=== PATIENT | female | born 1955 | race American Indian/Alaskan Native ===

== ENCOUNTER 2016-07-18 13:52 | Emergency (ER) | payer MEDICAID ==
[2016-07-18 14:17] VITALS: BMI 31.8
[2016-07-18 14:24] VITALS: TEMP 97.8
[2016-07-18] MEDS ORDERED: Sodium Chloride 0.9% 1,000 ML IV STA (14:43)
--- NOTE | 2016-07-18 15:10 | ED PDOC ---
Arrival/HPI - General Chief Complaint: Abdominal Pain Time Seen by Provider: 07/18/16 14:38 Historian: Patient - History of Present Illness Narrative History of Present Illness (Text): 07/18/16 15:04 61 y/o female with hx colon ca with liver mets, off chemotherapy for 5 weeks, presenting with complaints of RUQ abdominal discomfort. Patient states pain started last night. Discomfort is described as sharp and intermittent. Patient reports one episode of nausea and vomiting last night. Nonbilious, nonbloody emesis. She also notes constipation and lack of flatus, stating she has not had a BM in over 24hrs which is unusual for her. Patient denies fever, chills, urinary complaints, shortness of breath or chest pain. Time/Duration: 24 hours Past Medical History - Provider Review Nursing Documentation Reviewed: Yes - Infectious Disease Hx of Infectious Diseases: None - Tetanus Immunization Tetanus Immunization: Unknown - Cardiac Hx Cardiac Disorders: No - Pulmonary Hx Respiratory Disorders: No - HEENT Hx HEENT Disorder: No - Renal Hx Renal Disorder: No - Endocrine/Metabolic Hx Endocrine Disorders: No - Hematological/Oncological Hx Blood Transfusions: Yes Hx Blood Transfusion Reaction: No - Integumentary Hx Dermatological Disorder: No - Musculoskeletal/Rheumatological Hx Falls: No - Gastrointestinal Hx Gastrointestinal Disorders: No Other/Comment: liver/colon ca on chemo. HX BLOOD TRANSFUSION - Genitourinary/Gynecological Hx Genitourinary Disorders: Yes Other/Comment: fibroids, endometriosis - Psychiatric Hx Depression: No Hx Emotional Abuse: No Hx Physical Abuse: No Hx Substance Use: No - Surgical History Other/Comment: laparotomy for uterine fibroid resection - Anesthesia Hx Anesthesia Reactions: No Hx Malignant Hyperthermia: No - Suicidal Assessment Feels Threatened In Home Enviroment: No Family/Social History - Physician Review Nursing Documentation Reviewed: Yes Family/Social History: Unknown Family HX Smoking Status: Never Smoked Hx Alcohol Use: Yes (social) Hx Substance Use: No Hx Substance Use Treatment: No Allergies/Home Meds Allergies/Adverse Reactions: Allergies montano Allergy (Intermediate, Uncoded 01/01/16 10:41) URTICARIA Home Medications: Home Meds Medication Instructions Recorded Confirmed Ergocalciferol (Vitamin D2) 50,000 unit PO SUN 03/17/16 07/18/16 [Vitamin D2] traMADol [Ultram] 50 mg PO TID PRN 07/18/16 07/18/16 Review of Systems - Physician Review All systems were reviewed & negative as marked: Yes - Review of Systems Constitutional: Normal. absent: Fatigue, Fevers Eyes: Normal ENT: Normal Respiratory: absent: SOB, Cough Cardiovascular: absent: Chest Pain, Palpitations Gastrointestinal: Abdominal Pain, Constipation. absent: Diarrhea, Nausea Genitourinary Female: Normal. absent: Dysuria, Frequency, Hematuria Musculoskeletal: absent: Arthralgias, Back Pain, Neck Pain Skin: absent: Rash, Pruritis, Skin Lesions Neurological: absent: Headache, Dizziness, Focal Weakness Psychiatric: absent: Anxiety, Depression Physical Exam Vital Signs Reviewed: Yes Vital Signs Temp Pulse Resp BP Pulse Ox 07/18/16 17:46 88 18 121/76 99 07/18/16 15:44 96 H 18 106/73 95 07/18/16 13:52 97.8 F 109 H 18 104/7 L 95 Temperature: Afebrile Blood Pressure: Normal Pulse: Regular Respiratory Rate: Normal Appearance: Positive for: Well-Appearing Pain Distress: None Mental Status: Positive for: Alert and Oriented X 3 - Systems Exam Head: Present: Atraumatic, Normocephalic Pupils: Present: PERRL Extroacular Muscles: Present: EOMI Conjunctiva: Present: Normal Mouth: Present: Moist Mucous Membranes Neck: Present: Normal Range of Motion Respiratory/Chest: Present: Clear to Auscultation, Good Air Exchange. No: Respiratory Distress Cardiovascular: Present: Regular Rate and Rhythm, Normal S1, S2 Abdomen: Present: Normal Bowel Sounds. No: Tenderness, Distention, Peritoneal Signs, McBurney's Point Tender, Hernias Upper Extremity: Present: Normal Inspection. No: Cyanosis, Edema Lower Extremity: Present: Normal Inspection, NORMAL PULSES. No: Edema, CALF TENDERNESS Neurological: Present: GCS=15, CN II-XII Intact, Speech Normal Skin: Present: Warm, Dry. No: Rashes Psychiatric: Present: Alert, Oriented x 3, Normal Insight, Normal Concentration Medical Decision Making ED Course and Treatment: 07/18/16 15:12 61 y/o female with hx colon ca with mets to liver, omentum presenting with RUQ abdominal pain 2/2 cholelithiasis/cholecystitis vs constipation vs obstruction. - CBC - CMP - UA - amylase, lipase - coags - obstruction series - abd ultrasound - Pepcid - Zofran for nausea - reassess 07/18/16 15:[address] Pretty who is the patient's oncologist as well as primary physician. CT abd/pelvis is not recommended at this point as one was done on 07/04 which did not show acute pathology or expansion of metastatic disease. 07/18/16 18:10 Abdominal US reviewed. Cholelithiasis noted without cholecystitis or CBD obstruction. Abdominal pain is improved. There is no leukocytosis and patient is afebrile. Will discharge the patient today as she is scheduled for a necessary procedure Thursday. Patient will f/u with Dr. Pretty. She was instructed that she will eventually need to be evaluated by a surgeon for cholecystectomy. - Lab Interpretations Lab Results: 07/18/16 15:05 07/18/16 15:05 Lab Results 07/18/16 15:05: WBC 9.4 D, RBC 4.00, Hgb 12.3, Hct 35.4 L, MCV 88.5, MCH 30.8, MCHC 34.7, RDW 15.6 H, Plt Count 329, MPV 8.7, Gran % 76.9 H, Lymph % (Auto) 10.2 L, [place] % (Auto) 12.7 H, Eos % (Auto) 0.1 L, Baso % (Auto) 0.1, Gran # 7.20 H, Lymph # 1.0 L, [place] # 1.2 H, Eos # 0.0, Baso # 0.01, PT 12.1 H, INR 1.12 H, APTT 28.1, Sodium 132, Potassium 3.8, Chloride 96 L, Carbon Dioxide 25, Anion Gap 15, BUN 9, Creatinine 0.7, Est GFR ( Amer) > 60, Est GFR (Non- Af Amer) > 60, Random Glucose 142 H, Calcium 9.4, Total Bilirubin 2.4 H, AST 86 H, ALT 41, Alkaline Phosphatase 206 H, Total Protein 7.7, Albumin 3.8, Globulin 4.0, Albumin/Globulin Ratio 1.0 L, Amylase 93, Lipase 79, Urine Color Anay, Urine Appearance Clear, Urine pH 6.0, Ur Specific [place] 1.025, Urine Protein 100 H, Urine Glucose (UA) 100 H, Urine Ketones Trace H, Urine Blood Trace- intact H, Urine Nitrate Positive H, Urine Bilirubin Moderate H, Urine Urobilinogen 4.0 H, Ur Leukocyte Esterase Negative, Urine RBC 5 - 10, Urine WBC 2 - 5, Ur Epithelial Cells 6 - 8, Amorphous Sediment Small, Urine Bacteria Small - RAD Interpretation Radiology Orders: 07/18/16 14:45 ABD 2 VIEWS (FLAT/UP OR DECUB) [RAD] Stat 07/18/16 16:32 ABDOMEN COMPLETE [US] Stat - Medication Orders Current Medication Orders: Sodium Chloride (Sodium Chloride 0.9%) 1,000 mls @ 100 mls/hr IV .Q10H STA Stop: 07/19/16 00:42 Last Admin: 07/18/16 15:10 Dose: 100 MLS/HR eMAR Start Stop Document 07/18/16 15:10 HI (Rec: 07/18/16 15:10 [id number]) Intravenous Solution Start Date 07/18/16 Start Time 15:10 Discontinued Medications Famotidine (Pepcid) 20 mg IVP STAT STA Stop: 07/18/16 14:44 Last Admin: 07/18/16 15:10 Dose: 20 MG IVP Administration Document 07/18/16 15:10 HI (Rec: 07/18/16 15:10 [id number]) Charges for Administration # of IVP Administrations 1 Ondansetron HCl (Zofran Inj) 4 mg IVP STAT STA Stop: 07/18/16 14:44 Last Admin: 07/18/16 15:10 Dose: 4 MG IVP Administration Document 07/18/16 15:10 HI (Rec: 07/18/16 15:10 [id number]) Charges for Administration # of IVP Administrations 1 Disposition/Present on Arrival - Present on Arrival Any Indicators Present on Arrival: No History of DVT/PE: No History of Uncontrolled Diabetes: No Urinary Catheter: No History of Decub. Ulcer: No History Surgical Site Infection Following: None - Disposition Have Diagnosis and Disposition been Completed?: Yes Diagnosis: Colon cancer metastasized to liver, Abdominal pain, Elevated liver enzymes, Metastatic colorectal cancer Disposition: HOME/ ROUTINE Disposition Time: 18:08 Patient Plan: Discharge Condition: STABLE Discharge Instructions (ExitCare): Gallstones (ED) Additional Instructions: Please call Dr. Pretty with any questions. You may use Miralax for constipation as needed. Continue to use Toradol as needed for pain. If symptoms worsen or change return to the ED. Referrals: Mars Davis Jr., MD [Primary Care Provider] - Follow up with primary Thalia Pretty MD [Staff Provider] - Follow up with primary
[2016-07-18 15:13] LABS: ADD MANUAL DIFF? NO
[2016-07-18 15:18] LABS: BASO # 0.01 K/mm3 (0.0-2.0); BASO % 0.1 % (0.0-3.0); EOS % 0.1 % (1.5-5.0); GRAN % 76.9 % (50.0-68.0); HEMATOCRIT 35.4 % (36.0-48.0); LYMPH % 10.2 % (22.0-35.0); MEAN CELL VOLUME 88.5 fL (80.0-105.0); MEAN CORPUSCULAR HEMOGLOBIN 30.8 pg (25.0-35.0); MEAN CORPUSCULAR HGB CONC 34.7 g/dl (31.0-37.0); MEAN PLATELET VOLUME 8.7 fl (7.0-11.0); MONO # 1.2 (0.1-0.6); MONO % 12.7 % (1.0-6.0); PLATELET COUNT 329 10^3/uL (120.0-450.0); RED CELL DISTRIBUTION WIDTH 15.6 % (11.5-14.5); URINE BILIRUBIN MODERATE (NEGATIVE); URINE BLOOD TRACE-INTACT (NEGATIVE); URINE GLUCOSE (UA) 100 mg/dL (NEGATIVE); URINE KETONE TRACE mg/dL (NEGATIVE); URINE LEUKOCYTE ESTERASE NEGATIVE Leu/uL (NEGATIVE); URINE PROTEIN 100 mg/dL (<30 mg/dL); WHITE BLOOD COUNT 9.4 10^3/ul (4.5-11.0)
[2016-07-18 15:22] LABS: URINE APPEARANCE CLEAR (CLEAR); URINE COLOR AMBER (YELLOW)
[2016-07-18 15:27] LABS: ALKALINE PHOSPHATASE 206 U/L (38-133); ALT/SGPT 41 U/L (7-56); AMYLASE 93 U/L (35-125); AST/SGOT 86 U/L (15-39); BILIRUBIN,TOTAL 2.4 mg/dL (0.2-1.3); BLOOD UREA NITROGEN 9 mg/dL (7-21); CALCIUM 9.4 mg/dL (8.4-10.5); CARBON DIOXIDE 25 mmol/L (21-33); CHLORIDE 96 mmol/L (98-107); GFR AFRICAN-AMERICAN > 60; GLUCOSE,RANDOM 142 mg/dL (70-110); LIPASE 79 U/L (23-300); POTASSIUM 3.8 mmol/L (3.6-5.0); SODIUM 132 mmol/L (132-148); TOTAL PROTEIN 7.7 g/dL (5.8-8.3)
[2016-07-18 15:28] LABS: URINE BACTERIA SMALL (NEG)
[2016-07-18 15:29] LABS: URINE AMORPHOUS SEDIMENT SMALL
[2016-07-18 15:41] LABS: INR 1.12 (0.93-1.08); PARTIAL THROMBOPLASTIN TIME 28.1 Seconds (23.7-30.8)
--- NOTE | 2016-07-18 17:40 | US ---
HISTORY: abdominal discomfort COMPARISON: CT abdomen/pelvis 07/04/2016 TECHNIQUE: Sonographic evaluation of the abdomen. FINDINGS: LIVER: Measures 16.0 cm. Diffusely heterogeneous echogenicity of the liver parenchyma. Multiple masses, many ill-defined. Largest mass, 5.2 x 4.7 x 5.5 cm in the left lobe. No biliary dilatation. Smooth contour. GALLBLADDER: Cholelithiasis. No mural thickening. No pericholecystic fluid. COMMON BILE DUCT: Measures 5 mm. No stones. No dilatation. PANCREAS: Unremarkable as visualized. No mass. No ductal dilatation. RIGHT KIDNEY: Measures 12.0cm. Normal cortical echogenicity. Parapelvic cyst, 2.0 cm. 3 mm nonobstructing lower pole calculus. LEFT KIDNEY: Measures 12.4cm. Normal echogenicity. No calculus, mass, or hydronephrosis. SPLEEN: Normal in size and contour. No mass. AORTA: No aneurysmal dilatation. IVC: Unremarkable. OTHER FINDINGS: None. IMPRESSION: Findings consistent with metastatic disease the liver, as on CT examination of 07/04/2016. No evidence of biliary obstruction. Cholelithiasis without evidence of cholecystitis. Incidental 2 cm right parapelvic renal cyst and 3 mm nonobstructing right lower pole renal calculus.
[2016-07-18 18:47] VITALS: BP 131/77; PULSE 89; RESP 16; O2SAT 97
--- NOTE | 2016-07-19 13:38 | RAD ---
HISTORY: r/o obstruction COMPARISON: No prior. FINDINGS: BOWEL: Normal. No obstruction. No free air. BONES: Normal. OTHER FINDINGS: None. IMPRESSION: No active disease.
== END 2016-07-18 18:47 | disposition home or self-care (01) ==
LOC: ED 13:52
DX: C18.9 Malignant neoplasm of colon, unspecified (principal); C78.7 Secondary malignant neoplasm of liver and intrahepatic bile duct; R10.9 Unspecified abdominal pain; R74.8 Abnormal levels of other serum enzymes
CPT/HCPCS: 74020; 76700; 80053; 81001; 82150; 83690; 85025; 85610; 85730; 87086; 96374; 96375; 99284; J2405; J7040

== ENCOUNTER 2017-03-27 15:39 | Emergency (ER) | payer MEDICAID ==
[2017-03-27 15:39] VITALS: BMI 31.8
[2017-03-27 15:53] VITALS: TEMP 98.4; O2SAT 100
--- NOTE | 2017-03-27 16:33 | ED PDOC ---
Arrival/HPI - General Chief Complaint: High Blood Pressure Time Seen by Provider: 03/27/17 15:48 Historian: Patient - History of Present Illness Narrative History of Present Illness (Text): 03/27/17 16:49 61yo female with PMHx of Colon CA with mets to liver, currently on Chemo present with complaint of elevated BP. Notes that her BP was elevated a week ago , while getting her chemo. States it resolved with hydration and was told to monitor her BP. She has been checking it at home and it was 160/94 today at home. States she was unable to reach her Doctor so she came to ED. she denies any somatic complaint in ED. Denies focal weakness, headache, chest pain, SOB, visual change, nausea, vomiting, any other complaint. Past Medical History - Provider Review Nursing Documentation Reviewed: Yes - Infectious Disease Hx of Infectious Diseases: None - Tetanus Immunization Tetanus Immunization: Unknown - Cardiac Hx Cardiac Disorders: No - Pulmonary Hx Respiratory Disorders: No - Neurological Hx Neurological Disorder: No - HEENT Hx HEENT Disorder: No - Renal Hx Renal Disorder: No - Endocrine/Metabolic Hx Endocrine Disorders: No - Hematological/Oncological Hx Blood Transfusions: Yes Hx Blood Transfusion Reaction: No Hx Cancer: Yes (liver/colon CA) Hx Chemotherapy: Yes (03/20/2017) - Integumentary Hx Dermatological Disorder: No - Musculoskeletal/Rheumatological Hx Falls: No - Gastrointestinal Hx Gastrointestinal Disorders: Yes Other/Comment: liver/colon ca on chemo. HX BLOOD TRANSFUSION - Genitourinary/Gynecological Hx Genitourinary Disorders: Yes Other/Comment: fibroids, endometriosis - Psychiatric Hx Depression: No Hx Emotional Abuse: No Hx Physical Abuse: No Hx Substance Use: No - Surgical History Other/Comment: laparotomy for uterine fibroid resection. R chest port placed - Anesthesia Hx Anesthesia: Yes Hx Anesthesia Reactions: No Hx Malignant Hyperthermia: No - Suicidal Assessment Feels Threatened In Home Enviroment: No Family/Social History - Physician Review Nursing Documentation Reviewed: Yes Family/Social History: Unknown Family HX Smoking Status: Never Smoked Hx Alcohol Use: Yes (social) Hx Substance Use: No Hx Substance Use Treatment: No Allergies/Home Meds Allergies/Adverse Reactions: Allergies montano Allergy (Intermediate, Uncoded 03/27/17 15:53) URTICARIA Home Medications: Home Meds Medication Instructions Recorded Confirmed Ergocalciferol (Vitamin D2) 50,000 unit PO SUN 03/17/16 03/27/17 [Vitamin D2] Omeprazole [Omeprazole] 40 mg PO DAILY 08/06/16 03/27/17 Sucralfate [Carafate Oral Susp] 10 gm PO BID 08/13/16 03/27/17 Ursodiol [Actigall] 300 mg PO DAILY 08/27/16 03/27/17 Polyethylene Glycol 3350 [Miralax] 17 gm PO DAILY PRN 10/24/16 03/27/17 traMADol [Ultram] 50 mg PO TID PRN 10/24/16 03/27/17 Magnesium 400 mg PO DAILY 01/14/17 03/27/17 Ondansetron ODT [Zofran ODT] 4 mg PO Q8H PRN 02/26/17 03/27/17 Denosumab [Xgeva] 120 mg SC Q30D 03/19/17 03/27/17 Pyridoxine [Vitamin B6] 3 tab PO BID 03/27/17 03/27/17 Review of Systems - Physician Review All systems were reviewed & negative as marked: Yes - Review of Systems Constitutional: Normal, Other (Elevated BP) Eyes: Normal ENT: Normal Respiratory: Normal Cardiovascular: Normal Gastrointestinal: Normal Genitourinary Female: Normal Musculoskeletal: Normal Skin: Normal Neurological: Normal Endocrine: Normal Hemo/Lymphatic: Normal Psychiatric: Normal Physical Exam Vital Signs Reviewed: Yes Vital Signs Temp Pulse Resp BP Pulse Ox 03/27/17 16:54 133/83 03/27/17 16:47 99 H 16 133/83 100 03/27/17 15:50 98.4 F 110 H 15 171/93 H 100 Temperature: Afebrile Blood Pressure: Normal Pulse: Regular Respiratory Rate: Normal Appearance: Positive for: Well-Appearing, Non-Toxic, Comfortable Pain Distress: None Mental Status: Positive for: Alert and Oriented X 3 - Systems Exam Head: Present: Atraumatic, Normocephalic Pupils: Present: PERRL Extroacular Muscles: Present: EOMI Conjunctiva: Present: Normal Mouth: Present: Moist Mucous Membranes Neck: Present: Normal Range of Motion Respiratory/Chest: Present: Clear to Auscultation, Good Air Exchange. No: Respiratory Distress, Accessory Muscle Use Cardiovascular: Present: Regular Rate and Rhythm, Normal S1, S2. No: Murmurs Abdomen: Present: Normal Bowel Sounds. No: Tenderness, Distention, Peritoneal Signs Back: Present: Normal Inspection Upper Extremity: Present: Normal Inspection. No: Cyanosis, Edema Lower Extremity: Present: Normal Inspection. No: Edema Neurological: Present: GCS=15, CN II-XII Intact, Speech Normal, Motor Func Grossly Intact, Normal Sensory Function, Normal Cerebellar Funct, Norm Deep Tendon Reflexes, Gait Normal, Memory Normal, Normal 2Pt Descrimination Skin: Present: Warm, Dry, Normal Color. No: Rashes Psychiatric: Present: Alert, Oriented x 3, Normal Insight, Normal Concentration Medical Decision Making ED Course and Treatment: 03/27/17 17:18 61yo female in ED for elevated BP. She denied any somatic or neurological complaint in ED. She was comfortable and in no distress. Case was DW Dr. Pretty. he notes that pt's BP is elevated secondary to her chemo medication. Recommends low dose of ACEI for the pt and DC to f/u with him next week. Repeat BP improved in ED without medication and Lisinopril was not given. Plan was DW the pt and she was DC home with Lisinopril 5mg. she notes that she already have appointment with Dr. Fraser next week. Advised TRT ED for any new or worsening BP. - Medication Orders Current Medication Orders: Discontinued Medications Lisinopril (Zestril) 5 mg PO STAT STA Stop: 03/27/17 16:24 Last Admin: 03/27/17 16:54 Dose: Not Given Non-Admin Reason: BP Parameters Not Met Comments: not given, Jeb Muñoz aware [facility] Pulse and Blood Pressure Document 03/27/17 16:54 SE (Rec: 03/27/17 16:54 [id number]) Blood Pressure Blood Pressure (100/60-150/90 mm Hg) 133/83 Disposition/Present on Arrival - Present on Arrival Any Indicators Present on Arrival: No History of DVT/PE: No History of Uncontrolled Diabetes: No Urinary Catheter: No History of Decub. Ulcer: No History Surgical Site Infection Following: None - Disposition Have Diagnosis and Disposition been Completed?: Yes Diagnosis: Hypertension Disposition: HOME/ ROUTINE Disposition Time: 17:00 Patient Plan: Discharge Patient Problems: Current Active Problems Problem Status Onset Hypertension Acute Condition: STABLE Discharge Instructions (ExitCare): Hypertension (ED) Additional Instructions: Follow up with your doctor Return to ED for any new or worsening symptoms Prescriptions: Lisinopril [Zestril] 5 mg PO DAILY #10 tab Referrals: Thalia Pretty MD [Staff Provider] - Follow up with primary Forms: [id number] (Bulgarian)
[2017-03-27 16:47] VITALS: PULSE 99; RESP 16
[2017-03-27 17:18] VITALS: BP 140/90
--- NOTE | 2017-03-28 10:46 | CARD ---
APPROVED REPORT EKG Measurement Heart [id number] MI [id number] <Conclusion> Sinus tachycardia Otherwise normal ECG
== END 2017-03-27 17:18 | disposition home or self-care (01) ==
LOC: ED 15:39
DX: I10 Essential (primary) hypertension (principal)

== ENCOUNTER 2017-04-28 12:52 | Inpatient (IN) | payer MEDICAID ==
[2017-04-28 14:10] LABS: URINE APPEARANCE SL CLOUDY (CLEAR); URINE BILIRUBIN SMALL (NEGATIVE); URINE BLOOD TRACE-INTACT (NEGATIVE); URINE COLOR STRAW (YELLOW); URINE GLUCOSE (UA) 100 mg/dL (NEGATIVE); URINE LEUKOCYTE ESTERASE NEGATIVE Leu/uL (NEGATIVE); URINE NITRATE NEGATIVE (NEGATIVE); URINE PROTEIN 30 mg/dL (<30 mg/dL); URINE UROBILINOGEN >=8.0 E.U./dL (<1 E.U./dL)
[2017-04-28 14:20] LABS: URINE BACTERIA TRACE (NEG); URINE RBC 0 - 2 /hpf (0-2); URINE WBC 0 - 2 /hpf (0-6)
[2017-04-28 14:26] LABS: VENOUS BLOOD GAS BASE EXCESS -2.6 mmol/L (0.0-2.0); VENOUS BLOOD GAS PO2 34 mm/Hg (30-55); VENOUS BLOOD PH 7.34 (7.32-7.43)
[2017-04-28 14:28] LABS: BASO # 0.05 K/mm3 (0.0-2.0); BASO % 0.2 % (0.0-3.0); GRAN # 19.69 (1.4-6.5); GRAN % 80.9 % (50.0-68.0); LYMPH # 1.2 (1.2-3.4); LYMPH % 4.7 % (22.0-35.0); MEAN CELL VOLUME 83.2 fl (80.0-105.0); MEAN CORPUSCULAR HEMOGLOBIN 26.8 pg (25.0-35.0); MEAN CORPUSCULAR HGB CONC 32.3 g/dl (31.0-37.0); MEAN PLATELET VOLUME 8.5 fl (7.0-11.0); MONO # 3.5 (0.1-0.6); MONO % 14.2 % (1.0-6.0); PLATELET COUNT 293 10^3/uL (120.0-450.0); RED CELL DISTRIBUTION WIDTH 19.1 % (11.5-14.5); WHITE BLOOD COUNT 24.4 10^3/ul (4.5-11.0)
[2017-04-28 14:41] LABS: ALB/GLOB RATIO 0.9 (1.1-1.8); ALT/SGPT 38 U/L (7-56); AMYLASE 70 U/L (35-125); AST/SGOT 121 U/L (14-36); BLOOD UREA NITROGEN 11 mg/dL (7-21); GFR AFRICAN-AMERICAN > 60; GFR NON-AFRICAN AMERICAN > 60; LIPASE 79 U/L (23-300)
[2017-04-28 14:48] LABS: TROPONIN I < 0.01 ng/mL
[2017-04-28 14:49] LABS: INR 1.45 (0.93-1.08); PARTIAL THROMBOPLASTIN TIME 32.4 Seconds (25.1-36.5); PROTHROMBIN TIME 16.6 SECONDS (9.4-12.5)
[2017-04-28 14:56] LABS: BAND 1 % (0-2); EOSINOPHIL 1 % (0.0-3.0); LYMPHOCYTE 6 % (22.0-35.0); MONOCYTE 10 % (1.0-6.0); NEUTROPHIL 82 % (50.0-70.0); PLATELET ESTIMATE NORMAL (NORMAL)
--- NOTE | 2017-04-28 15:54 | ED PDOC ---
Arrival/HPI - General Chief Complaint: Abdominal Pain Time Seen by Provider: 04/28/17 13:21 Historian: Patient - History of Present Illness Narrative History of Present Illness (Text): 04/28/17 15:52 61yo female with history of Colon CA with metastatis referred to ED by Dr. Pretty for abnormal lab and abdominal pain. Patient notes sharp abdominal pain with associated nausea/vomiting x 1 yesterday. States abdominal pain started 3days ago and rotates from one area to the other. Notes that the pain is currently localized to her epigastric area. Saw her PMD today and her lab showed leukocytosis. States she had one loose BM earlier this morning after taking Miralax on Thursday night and then normal consistency BM afterwards. She denies fever, chills, urinary symptoms, hematemesis, melena, hematochezia, SOB, diaphoresis, chest pain, sick contact. Past Medical History - Provider Review Nursing Documentation Reviewed: Yes - Infectious Disease Hx of Infectious Diseases: None - Tetanus Immunization Tetanus Immunization: Unknown - Reproductive Menopause: Yes - Cardiac Hx Cardiac Disorders: No - Pulmonary Hx Respiratory Disorders: No - Neurological Hx Neurological Disorder: No - HEENT Hx HEENT Disorder: No - Renal Hx Renal Disorder: No - Endocrine/Metabolic Hx Endocrine Disorders: No - Hematological/Oncological Hx Cancer: Yes (liver/colon CA) Hx Chemotherapy: Yes - Integumentary Hx Dermatological Disorder: No - Musculoskeletal/Rheumatological Hx Falls: No - Gastrointestinal Other/Comment: liver/colon ca on chemo. HX BLOOD TRANSFUSION - Genitourinary/Gynecological Hx Genitourinary Disorders: Yes Other/Comment: fibroids, endometriosis - Psychiatric Hx Depression: No Hx Emotional Abuse: No Hx Physical Abuse: No Hx Substance Use: No - Surgical History Other/Comment: laparotomy for uterine fibroid resectionR chest port placedR chest port placed - Anesthesia Hx Anesthesia: Yes - Suicidal Assessment Feels Threatened In Home Enviroment: No Family/Social History - Physician Review Nursing Documentation Reviewed: Yes Family/Social History: Unknown Family HX Smoking Status: Never Smoked Hx Alcohol Use: Yes (social) Hx Substance Use: No Hx Substance Use Treatment: No Allergies/Home Meds Allergies/Adverse Reactions: Allergies montano Allergy (Intermediate, Uncoded 04/28/17 13:14) URTICARIA Home Medications: Home Meds Medication Instructions Recorded Confirmed Ergocalciferol (Vitamin D2) 50,000 unit PO SUN 11/28/16 01/09/18 [Vitamin D2] Omeprazole [Omeprazole] 40 mg PO DAILY 08/06/16 04/28/17 Sucralfate [Carafate Oral Susp] 10 gm PO BID 08/13/16 04/28/17 Ursodiol [Actigall] 300 mg PO DAILY 08/27/16 04/28/17 Polyethylene Glycol 3350 [Miralax] 17 gm PO DAILY PRN 10/24/16 04/28/17 traMADol [Ultram] 50 mg PO TID PRN 10/24/16 04/28/17 Magnesium 400 mg PO DAILY 01/14/17 04/28/17 Ondansetron ODT [Zofran ODT] 4 mg PO Q8H PRN 02/26/17 04/28/17 Denosumab [Xgeva] 120 mg SC Q30D 03/19/17 04/28/17 Pyridoxine [Vitamin B6] 3 tab PO BID 03/27/17 04/28/17 Lisinopril [Zestril] 2.5 mg PO DAILY 04/07/17 04/28/17 Review of Systems - Physician Review All systems were reviewed & negative as marked: Yes - Review of Systems Constitutional: Normal Eyes: Normal ENT: Normal Respiratory: Normal Cardiovascular: Normal Gastrointestinal: Abdominal Pain, Nausea, Vomiting. absent: Constipation, Diarrhea, Hematochezia, Hematemesis Genitourinary Female: Normal Musculoskeletal: Normal Skin: Normal Neurological: Normal Endocrine: Normal Hemo/Lymphatic: Normal Psychiatric: Normal Physical Exam Vital Signs Reviewed: Yes Vital Signs Temp Pulse Resp BP Pulse Ox 04/28/17 16:39 94 H 18 114/65 98 04/28/17 13:11 98.6 F 103 H 18 116/68 99 Temperature: Afebrile Blood Pressure: Normal Pulse: Tachycardic Respiratory Rate: Normal Appearance: Positive for: Well-Appearing, Non-Toxic, Comfortable Pain Distress: None Mental Status: Positive for: Alert and Oriented X 3 - Systems Exam Head: Present: Atraumatic, Normocephalic Pupils: Present: PERRL Extroacular Muscles: Present: EOMI Conjunctiva: Present: Normal Mouth: Present: Moist Mucous Membranes Neck: Present: Normal Range of Motion Respiratory/Chest: Present: Clear to Auscultation, Good Air Exchange. No: Respiratory Distress, Accessory Muscle Use Cardiovascular: Present: Regular Rate and Rhythm, Normal S1, S2. No: Murmurs Abdomen: Present: Tenderness (Epigastric tenderness), Normal Bowel Sounds, Other (Soft). No: Distention, Peritoneal Signs, Rebound, Guarding, McBurney's Point Tender, Rovsing's Sign Present Back: Present: Normal Inspection Upper Extremity: Present: Normal Inspection. No: Cyanosis, Edema Lower Extremity: Present: Normal Inspection. No: Edema Neurological: Present: GCS=15, CN II-XII Intact, Speech Normal Skin: Present: Warm, Dry, Normal Color. No: Rashes Psychiatric: Present: Alert, Oriented x 3, Normal Insight, Normal Concentration Medical Decision Making - Lab Interpretations Lab Results: 04/28/17 14:05 04/28/17 14:05 Lab Results 04/28/17 14:05: pO2 34, VBG pH 7.34, VBG pCO2 43.0, VBG HCO3 23.2, VBG Total CO2 24.5, VBG O2 Sat (Calc) 67.4 H, VBG Base Excess -2.6 L, VBG Potassium 4.0, Sodium 130.0 L, Chloride 97.0 L, Glucose 115 H, Lactate 2.8 H, FiO2 21.0, Venous Blood Potassium 4.0 04/28/17 14:05: Sodium 133, Chloride 95 L, Potassium 3.8, Carbon Dioxide 25, Anion Gap 17, BUN 11, Creatinine 0.6 L, Est GFR ( Amer) > 60, Est GFR ( Non-Af Amer) > 60, Random Glucose 115 H, Calcium 9.0, Total Bilirubin 2.0 H, AST 121 H D, ALT 38, Alkaline Phosphatase 248 H, Lactate Dehydrogenase 1999 H, Total Creatine Kinase 140, Troponin I < 0.01, Total Protein 8.5 H, Albumin 4.0, Globulin 4.6, Albumin/Globulin Ratio 0.9 L, Amylase 70, Lipase 79 04/28/17 14:05: PT 16.6 H, INR 1.45 H, APTT 32.4 04/28/17 14:05: WBC 24.4 H D, RBC 4.10, Hgb 11.0 L, Hct 34.1 L, MCV 83.2, MCH 26.8, MCHC 32.3, RDW 19.1 H, Plt Count 293, MPV 8.5, Gran % 80.9 H, Lymph % ( Auto) 4.7 L, [place] % (Auto) 14.2 H, Eos % (Auto) 0.0 L, Baso % (Auto) 0.2, Gran # 19.69 H, Lymph # 1.2, [place] # 3.5 H, Eos # 0.0, Baso # 0.05, Neutrophils % ( Manual) 82 H, Band Neutrophils % 1, Lymphocytes % (Manual) 6 L, Monocytes % ( Manual) 10 H, Eosinophils % (Manual) 1, Platelet Evaluation Normal 04/28/17 14:00: Urine Color Straw, Urine Appearance Sl cloudy, Urine pH 6.0, Ur Specific [place] 1.025, Urine Protein 30 H, Urine Glucose (UA) 100 H, Urine Ketones Trace H, Urine Blood Trace-intact H, Urine Nitrate Negative, Urine Bilirubin Small H, Urine Urobilinogen >=8.0, Ur Leukocyte Esterase Negative, Urine RBC 0 - 2, Urine WBC 0 - 2, Ur Epithelial Cells 6 - 8, Urine Bacteria Trace - RAD Interpretation Radiology Orders: 04/28/17 13:32 ABD & PELVIS IV CONTRAST ONLY [CT] Stat 04/28/17 16:13 CHEST PORTABLE [RAD] Stat Disposition/Present on Arrival - Present on Arrival Any Indicators Present on Arrival: No History of DVT/PE: No History of Uncontrolled Diabetes: No Urinary Catheter: No History of Decub. Ulcer: No History Surgical Site Infection Following: None - Disposition Have Diagnosis and Disposition been Completed?: Yes Diagnosis: Metastatic colorectal cancer, Leukocytosis Disposition: HOSPITALIZED Disposition Time: 17:15 Condition: FAIR Forms: [employer] (Turkmen)
--- NOTE | 2017-04-28 15:59 | CT ---
PROCEDURE: CT Abdomen and Pelvis with contrast HISTORY: abdominal pain COMPARISON: 07/04/2016 CT TECHNIQUE: Contrast dose: 100 cc of Omni 350 Radiation dose: Total exam DLP = 674 mGy-cm. This CT exam was performed using one or more of the following dose reduction techniques: Automated exposure control, adjustment of the mA and/or kV according to patient size, and/or use of iterative reconstruction technique. FINDINGS: LOWER THORAX: Unremarkable. LIVER: Increasing metastatic disease is seen throughout the liver. There are multiple confluent masses especially in the posterior right lobe. There is now extension into the caudate lobe. The small subcapsular fluid collection is seen anteriorly and laterally. GALLBLADDER AND BILE DUCTS: Small gallstone PANCREAS: Unremarkable. No gross lesion or ductal dilatation. Metallic coils are seen in the region of the pancreatic head and clarissa hepatis SPLEEN: Unremarkable. ADRENALS: Unremarkable. No mass. KIDNEYS AND URETERS: Unremarkable. No hydronephrosis. No solid mass. VASCULATURE: Unremarkable. No aortic aneurysm. BOWEL: Unremarkable. No obstruction. No gross mural thickening. APPENDIX: Normal appendix. PERITONEUM: There is an increase in size of the omental metastases. These are best seen on axial image 40 series 2 LYMPH NODES: Unremarkable. No enlarged lymph nodes. BLADDER: Unremarkable. REPRODUCTIVE: Unremarkable. BONES: No acute fracture. OTHER FINDINGS: None. IMPRESSION: Increasing metastatic disease to the liver with new subcapsular fluid collection. Increasing omental metastases.
--- NOTE | 2017-04-28 17:01 | RAD ---
HISTORY: admission COMPARISON: 01/05/2016. FINDINGS: The right IJV line terminates at the cavoatrial junction. LUNGS: The lungs are clear. PLEURA: No significant pleural effusion identified, no pneumothorax apparent. CARDIOVASCULAR: Normal. OSSEOUS STRUCTURES: No significant abnormalities. VISUALIZED UPPER ABDOMEN: Normal. OTHER FINDINGS: None. IMPRESSION: No acute findings. No significant interval change.
[2017-04-28] MEDS ORDERED: Piperacillin/Tazobact 3.375 gm 100 ML IVPB STA (17:18)
[2017-04-28 19:01] LABS: VENOUS BLOOD GAS BASE EXCESS 0.7 mmol/L (0.0-2.0); VENOUS BLOOD GAS PO2 42 mm/Hg (30-55); VENOUS BLOOD PH 7.41 (7.32-7.43)
[2017-04-28 20:57] VITALS: BMI 27.1
--- NOTE | 2017-04-28 21:53 | CARD ---
APPROVED REPORT EKG Measurement Heart [id number] CO [id number] <Conclusion> Normal sinus rhythm Normal ECG
[2017-04-28] MEDS ORDERED: Morphine 2 mg/ml ISec SC ONE (22:42)
[2017-04-29] MEDS ORDERED: Morphine 2 mg/ml ISec ONE (00:28)
[2017-04-29 06:21] LABS: HEMOGLOBIN 9.4 g/dL (12.0-16.0); MEAN CELL VOLUME 82.1 fl (80.0-105.0); MEAN CORPUSCULAR HEMOGLOBIN 26.3 pg (25.0-35.0); MEAN CORPUSCULAR HGB CONC 32.1 g/dl (31.0-37.0); MEAN PLATELET VOLUME 8.7 fl (7.0-11.0); RBC 3.57 10^6/uL (3.5-6.1); WHITE BLOOD COUNT 16.3 10^3/ul (4.5-11.0)
[2017-04-29 06:30] LABS: BLOOD UREA NITROGEN 10 mg/dL (7-21); CALCIUM 8.5 mg/dL (8.4-10.5); GFR AFRICAN-AMERICAN > 60; GFR NON-AFRICAN AMERICAN > 60
[2017-04-29] MEDS: Sodium Chloride 0.9% 1,000 ML IV SCH ×3 (06:33→23:33)
[2017-04-29] MEDS: Piperacillin/Tazobact 3.375 gm 100 ML IVPB SCH ×4 (06:41→23:33)
[2017-04-29] MEDS ORDERED: Vancomycin 1gm in NS 250ml 1 GM/250 ML BAG IVPB STA (07:25)
--- NOTE | 2017-04-29 07:32 | CP.PCM.PN ---
Subjective - Date & Time of Evaluation Date of Evaluation: 04/29/17 Time of Evaluation: 06:10 - Subjective Subjective: Patient seen at the request of her RN for temp of 101.5 She was admitted yesterday with a high white count and c/o abdominal pain.She has history of metastatic colon Ca with mets to the liver.Pt's chart reviewed.She was given one dose of zosyn in the ER. Objective - Vital Signs/Intake and Output Vital Signs (last 24 hours): Temp Pulse Resp BP Pulse Ox 101.5 F H 88 20 118/62 99 04/29/17 06:32 04/28/17 19:55 04/28/17 20:47 04/28/17 19:55 04/28/17 19:55 Intake and Output: 04/28/17 04/29/17 18:59 06:59 Intake Total 240 Balance 240 - Medications Medications: Current Medications Sodium Chloride (Sodium Chloride 0.9%) 1,000 mls @ 150 mls/hr IV .Q6H40M [facility] Last Admin: 04/29/17 06:33 Dose: 150 mls/hr Piperacillin Sod/Tazobactam Sod (Zosyn 3.375 In Ns 100ml) 100 mls @ 200 mls/hr IVPB Q6 [facility] PRN Reason: Protocol Last Admin: 04/29/17 06:41 Dose: 200 mls/hr - Labs Labs: 04/29/17 06:03 04/29/17 06:03 PT 16.6 SECONDS (9.4-12.5) H 04/28/17 14:05 INR 1.45 (0.93-1.08) H 04/28/17 14:05 APTT 32.4 Seconds (25.1-36.5) 04/28/17 14:05 - Constitutional Appears: No Acute Distress - Head Exam Head Exam: ATRAUMATIC, NORMAL INSPECTION, NORMOCEPHALIC - Eye Exam Eye Exam: Normal appearance, PERRL - ENT Exam ENT Exam: Mucous Membranes Moist - Neck Exam Neck Exam: Normal Inspection - Respiratory Exam Respiratory Exam: Clear to Ausculation Bilateral - Cardiovascular Exam Cardiovascular Exam: REGULAR RHYTHM - GI/Abdominal Exam GI & Abdominal Exam: Soft, Tenderness (more on the R side,especially RUQ,no guarding or rebound.), Normal Bowel Sounds. absent: Rebound - Extremities Exam Extremities Exam: Normal Inspection. absent: Calf Tenderness, Pedal Edema - Neurological Exam Neurological Exam: Alert, Awake, Oriented x3 - Psychiatric Exam Psychiatric exam: Normal Affect - Skin Skin Exam: Dry, Warm. absent: Rash Assessment and Plan - Assessment and Plan (Free Text) Assessment: Abdominal pain History of metastatic colon Ca Leukocytosis Plan: Labs as ordered(CBC,BMP.VBG with shock panel,blood cultures) Motrin 400 mg po 1 dose given stat .9NS 150cc/hr started Case discussed with Dr Pretty,Consults requested with Dr Solis/Dr Rowley, Dr Turk and Dr Stokes. Zosyn ordered stat then Q 6 hrs.
[2017-04-29 07:55] LABS: VENOUS BLOOD GAS BASE EXCESS 0.1 mmol/L (0.0-2.0); VENOUS BLOOD GAS PO2 250 mm/Hg (30-55); VENOUS BLOOD PH 7.45 (7.32-7.43)
[2017-04-29 10:07] LABS: ALB/GLOB RATIO 0.9 (1.1-1.8); ALBUMIN 3.2 g/dL (3.0-4.8)
[2017-04-29 10:19] LABS: BILIRUBIN,DIRECT 0.9 mg/dL (0.0-0.4)
--- NOTE | 2017-04-29 11:03 | CP.PCM.CON ---
<Babak Tripp - Last Filed: 04/29/17 11:04> History of Present Illness - History of Present Illness History of Present Illness: Surgery Consult note. Dr. Stokes 61yo F with PMHx of recently diagnosed metastatic colon cancer s/p Chemo and Radiation here for evaluation of Fever, Abdominal pain. Patient states that she was having RLQ and LLQ abdominal pain 3 days ago and went to her Oncologist, Dr. Pretty's office for follow up. By the time of her evaluation by Dr. Colon , she states that her symptoms had resolved and she denied any other complaints. Patient had blood work done at the office and was told to come into the ED for further evaluation due to leukocytosis. In the ED, she was found to have a leukocytosis of 25K. She had a Tmax of 101F overnight and surgery was consulted. Patient currently denies any subjective fevers, no chills. No Abd pain, no N/V/D. No CP/SOB. Does report mild fatigue. No changes in bowel habits , does report regular flatus and BMs. No urinary complaints. CT abd/Pelvis was performed which shows increased metastatic load in the liver and omentum. PMHx: Metastatic Ascending Colon CA s/p Chemo x8 and Radiation x2. PSHx: Uterine Fibroid removal Social Hx: Denies Tobacco, Denies ETOH, Denies illicit drugs NKDA, [place] allergy Review of Systems - Review of Systems All systems: reviewed and no additional remarkable complaints except - Constitutional Constitutional: Fatigue, Fever. absent: Chills - Cardiovascular Cardiovascular: absent: Chest Pain, Dyspnea - Gastrointestinal Gastrointestinal: Abdominal Pain. absent: Change in Bowel Habits, Change in Stool Character, Constipation, Diarrhea, Hematemesis, Hematochezia, Nausea, Vomiting - Genitourinary Genitourinary: absent: Dysuria Past Patient History - Infectious Disease Hx of Infectious Diseases: None - Tetanus Immunizations Tetanus Immunization: Unknown - Past Medical History & Family History Past Medical History?: Yes - Past Social History Smoking Status: Never Smoked - CARDIAC Hx Cardiac Disorders: Yes Hx Hypertension: Yes - PULMONARY Hx Respiratory Disorders: No - NEUROLOGICAL Hx Neurological Disorder: No - HEENT Hx HEENT Problems: No - RENAL Hx Chronic Kidney Disease: Yes Hx Kidney Stones: Yes - ENDOCRINE/METABOLIC Hx Endocrine Disorders: No - HEMATOLOGICAL/ONCOLOGICAL Hx Blood Disorders: Yes Hx Anemia: Yes (blood transfusion) Hx Cancer: Yes (colon CA) Hx Chemotherapy: Yes Hx Metastesis: Yes (liver) - INTEGUMENTARY Hx Dermatological Problems: No - MUSCULOSKELETAL/RHEUMATOLOGICAL Hx Falls: No - GASTROINTESTINAL Hx Gastrointestinal Disorders: Yes (colon ca) Other/Comment: liver/colon ca on chemo. HX BLOOD TRANSFUSION - GENITOURINARY/GYNECOLOGICAL Hx Genitourinary Disorders: Yes Other/Comment: fibroids, endometriosis - PSYCHIATRIC Hx Psychophysiologic Disorder: No Hx Depression: No Hx Emotional Abuse: No Hx Physical Abuse: No - SURGICAL HISTORY Hx Surgeries: Yes Other/Comment: laparotomy for uterine fibroid resectionR chest port placedR chest port placed - ANESTHESIA Hx Anesthesia: Yes Meds Allergies/Adverse Reactions: Allergies Allergy/AdvReac Type Severity Reaction Status Date / Time montano Allergy Intermediate URTICARIA Uncoded 04/28/17 13:14 - Medications Medications: Current Medications Sodium Chloride (Sodium Chloride 0.9%) 1,000 mls @ 150 mls/hr IV .Q6H40M [facility] Last Admin: 04/29/17 06:33 Dose: 150 mls/hr Piperacillin Sod/Tazobactam Sod (Zosyn 3.375 In Ns 100ml) 100 mls @ 200 mls/hr IVPB Q6 [facility] PRN Reason: Protocol Last Admin: 04/29/17 06:41 Dose: 200 mls/hr Physical Exam - Constitutional Appears: Non-toxic, No Acute Distress, Older Than Stated Age - Head Exam Head Exam: ATRAUMATIC, NORMAL INSPECTION, NORMOCEPHALIC - Eye Exam Eye Exam: EOMI - ENT Exam ENT Exam: Mucous Membranes Moist - Respiratory Exam Respiratory Exam: NORMAL BREATHING PATTERN. absent: Accessory Muscle Use, Respiratory Distress - Cardiovascular Exam Cardiovascular Exam: absent: JVD - GI/Abdominal Exam GI & Abdominal Exam: Soft. absent: Distended, Firm, Guarding, Mass, Rebound, Rigid, Tenderness - Extremities Exam Extremities exam: Positive for: normal inspection. Negative for: calf tenderness - Neurological Exam Neurological exam: Alert, Oriented x3 - Psychiatric Exam Psychiatric exam: Normal Affect, Normal Mood - Skin Skin Exam: Dry, Intact, Normal Color, Warm Results - Vital Signs Recent Vital Signs: Last Vital Signs Temp 100.9 F H 04/29/17 10:12 Pulse 102 H 01/10/18 10:12 Resp 20 04/29/17 10:12 BP 104/42 L 04/29/17 10:12 Pulse Ox 97 04/29/17 10:12 - Labs Result Diagrams: 04/29/17 06:03 04/29/17 06:03 Labs: Laboratory Results - last 24 hr 04/28/17 04/29/17 04/29/17 18:53 06:03 06:03 WBC 16.3 H D RBC 3.57 Hgb 9.4 L Hct 29.3 L MCV 82.1 MCH 26.3 MCHC 32.1 RDW 19.0 H Plt Count 259 MPV 8.7 pO2 42 VBG pH 7.41 VBG pCO2 40.0 VBG HCO3 25.4 VBG Total CO2 26.6 VBG O2 Sat (Calc) 78.5 H VBG Base Excess 0.7 VBG Potassium 4.0 Sodium 130.0 L 132 Chloride 98.0 101 Glucose 101 Lactate 1.5 FiO2 21.0 Potassium 3.9 Carbon Dioxide 24 Anion Gap 11 BUN 10 Creatinine 0.5 L Est GFR ( Amer) > 60 Est GFR (Non-Af Amer) > 60 Random Glucose 105 Calcium 8.5 Total Bilirubin Direct Bilirubin AST ALT Alkaline Phosphatase Total Protein Albumin Globulin Albumin/Globulin Ratio Venous Blood Potassium 4.0 04/29/17 04/29/17 07:30 07:45 WBC RBC Hgb Hct MCV MCH MCHC RDW Plt Count MPV pO2 250 H VBG pH 7.45 H VBG pCO2 34.0 L VBG HCO3 23.6 VBG Total CO2 24.6 VBG O2 Sat (Calc) 100.2 H VBG Base Excess 0.1 VBG Potassium 3.7 Sodium 130.0 L Chloride 101.0 Glucose 109 H Lactate 1.2 FiO2 21.0 Potassium Carbon Dioxide Anion Gap BUN Creatinine Est GFR ( Amer) Est GFR (Non-Af Amer) Random Glucose Calcium Total Bilirubin 1.4 H Direct Bilirubin 0.9 H AST 99 H ALT 38 Alkaline Phosphatase 208 H Total Protein 6.8 Albumin 3.2 Globulin 3.5 Albumin/Globulin Ratio 0.9 L Venous Blood Potassium 3.7 Assessment & Plan - Assessment and Plan (Free Text) Assessment: 61yo F with metastatic Ascending Colon CA, not previously operated. Here for Leukocytosis and fever - CT scan noted with worsening metastatic disease - Consider tumor fever. R/o port infection (low suspicion) Plan: - f/u blood cultures - f/u urine cultures - Patient would not like to proceed with surgery to decrease tumor burden at this time. It is warranted to monitor the patient clinically at this time as she does not exhibit any obstructive symptoms. - Continue CA treatment as per Oncology team Further recs as per Dr. Divya Tripp PGY1 surgery pager: [phone] <Michael Stokes - Last Filed: 04/30/17 21:09> Meds - Medications Medications: Current Medications Acetaminophen (Tylenol 325mg Tab) 650 mg PO Q4H PRN PRN Reason: Pain, Mild (1-3) Sodium Chloride (Sodium Chloride 0.9%) 1,000 mls @ 150 mls/hr IV .Q6H40M [facility] Last Admin: 04/30/17 17:10 Dose: 150 mls/hr Piperacillin Sod/Tazobactam Sod (Zosyn 3.375 In Ns 100ml) 100 mls @ 200 mls/hr IVPB Q6 [facility] PRN Reason: Protocol Last Admin: 04/30/17 17:11 Dose: 200 mls/hr Pantoprazole Sodium (Protonix Ec Tab) 40 mg PO 0600 [facility] Last Admin: 04/30/17 06:17 Dose: 40 mg Sucralfate (Carafate Oral Susp) 1 gm PO 0600,1600 [facility] Last Admin: 04/30/17 17:10 Dose: 1 gm Tramadol HCl (Ultram) 50 mg PO Q8 PRN PRN Reason: Pain, moderate (4-7) Last Admin: 04/30/17 02:13 Dose: 50 mg Ursodiol (Actigall) 300 mg PO DAILY [facility] Last Admin: 04/30/17 09:19 Dose: 300 mg Results - Vital Signs Recent Vital Signs: Last Vital Signs Temp 98 F 04/30/17 16:00 Pulse 91 H 04/30/17 16:00 Resp 18 04/30/17 16:00 BP 120/80 04/30/17 16:00 Pulse Ox 98 04/30/17 16:00 - Labs Result Diagrams: 04/30/17 06:30 04/30/17 06:30 Labs: Laboratory Results - last 24 hr 04/30/17 04/30/17 06:30 06:30 WBC 12.1 H D RBC 3.16 L Hgb 8.3 L Hct 26.1 L MCV 82.6 MCH 26.3 MCHC 31.8 RDW 19.3 H Plt Count 222 MPV 8.7 Gran % 76.6 H Lymph % (Auto) 9.9 L [place] % (Auto) 12.7 H Eos % (Auto) 0.4 L Baso % (Auto) 0.4 Gran # 9.26 H Lymph # 1.2 [place] # 1.5 H Eos # 0.1 Baso # 0.05 Sodium 134 Potassium 4.0 Chloride 106 Carbon Dioxide 22 Anion Gap 11 BUN 8 Creatinine 0.5 L Est GFR ( Amer) > 60 Est GFR (Non-Af Amer) > 60 Random Glucose 87 Calcium 7.9 L Total Bilirubin 0.8 AST 76 H D ALT 41 Alkaline Phosphatase 225 H Total Protein 6.2 Albumin 2.7 L Globulin 3.5 Albumin/Globulin Ratio 0.8 L Assessment & Plan - Assessment and Plan (Free Text) Plan: Patient was seen, evaluated and examined by me. I agree with the assessment and plan as per the resident's note.
--- NOTE | 2017-04-29 13:21 | CP.PCM.CON ---
<EstelaDelon sylvester - Last Filed: 04/29/17 13:16> History of Present Illness - History of Present Illness History of Present Illness: Infectious disease consultation. Attending: Dr. Rowley This is a 61 yo female with past medical hx of colon cancer, with recently diagnosed mets to liver, HTN, GERD, presenting to [place] with chief complaint of left hip and abdominal pain. Patient was feeling fatigued over the weekend, also began experiencing left hip pain that ultimately spread to her lower abdomen, both left and right quadrants. Pain came on suddenly, it was constant and throbbing. Pain has resolved today. Pt went to see her oncologist Dr. Pretty yesterday (04/28). Dr. Pretty did a CBC which showed a marked leukocytosis and she was told to come to ER. She did have a fever of 101.5 overnight. She is currently afebrile. She reports 1 episode of non bloody non bilious vomiting over the weekend. She denies sick contacts and recent travel. She denies sick contacts. She reports 2-3 lb wt loss over the past week. PMH: Colon cancer with mets to liver, currently on chemo PSH: Port placement Allergies: NKDA FH: Denies Home meds: includes vitamin D, B6, omeprazole, lisinopril Social hx: Denies smoking hx. Social drinker. Denies drug use. Not currently working. Lives alone. Review of Systems - Review of Systems All systems: reviewed and no additional remarkable complaints except Review of Systems: negative except per HPI Past Patient History - Infectious Disease Hx of Infectious Diseases: None - Tetanus Immunizations Tetanus Immunization: Unknown - Past Medical History & Family History Past Medical History?: Yes Past Family History: Reviewed and not pertinent - Past Social History Smoking Status: Never Smoked Chewing Tobacco Use: No Cigar Use: No Alcohol: Social Drugs: Denies Home Situation {Lives}: Alone Domestic Violence: Negative - CARDIAC Hx Cardiac Disorders: Yes Hx Hypertension: Yes - PULMONARY Hx Respiratory Disorders: No - NEUROLOGICAL Hx Neurological Disorder: No - HEENT Hx HEENT Problems: No - RENAL Hx Chronic Kidney Disease: Yes Hx Kidney Stones: Yes - ENDOCRINE/METABOLIC Hx Endocrine Disorders: No - HEMATOLOGICAL/ONCOLOGICAL Hx Blood Disorders: Yes Hx Anemia: Yes (blood transfusion) Hx Cancer: Yes (colon CA) Hx Chemotherapy: Yes Hx Metastesis: Yes (liver) - INTEGUMENTARY Hx Dermatological Problems: No - MUSCULOSKELETAL/RHEUMATOLOGICAL Hx Falls: No - GASTROINTESTINAL Hx Gastrointestinal Disorders: Yes (colon ca) Other/Comment: liver/colon ca on chemo. HX BLOOD TRANSFUSION - GENITOURINARY/GYNECOLOGICAL Hx Genitourinary Disorders: Yes Other/Comment: fibroids, endometriosis - PSYCHIATRIC Hx Psychophysiologic Disorder: No Hx Depression: No Hx Emotional Abuse: No Hx Physical Abuse: No - SURGICAL HISTORY Hx Surgeries: Yes Other/Comment: laparotomy for uterine fibroid resectionR chest port placedR chest port placed - ANESTHESIA Hx Anesthesia: Yes Meds Allergies/Adverse Reactions: Allergies Allergy/AdvReac Type Severity Reaction Status Date / Time montano Allergy Intermediate URTICARIA Uncoded 04/28/17 13:14 - Medications Medications: Current Medications Sodium Chloride (Sodium Chloride 0.9%) 1,000 mls @ 150 mls/hr IV .Q6H40M [facility] Last Admin: 04/29/17 06:33 Dose: 150 mls/hr Piperacillin Sod/Tazobactam Sod (Zosyn 3.375 In Ns 100ml) 100 mls @ 200 mls/hr IVPB Q6 [facility] PRN Reason: Protocol Last Admin: 04/29/17 11:08 Dose: 200 mls/hr Physical Exam - Constitutional Appears: No Acute Distress - Head Exam Head Exam: ATRAUMATIC, NORMAL INSPECTION, NORMOCEPHALIC - Eye Exam Eye Exam: EOMI - ENT Exam ENT Exam: Mucous Membranes Moist - Neck Exam Neck exam: Positive for: Full Rom, Normal Inspection - Respiratory Exam Respiratory Exam: NORMAL BREATHING PATTERN. absent: Respiratory Distress - Cardiovascular Exam Cardiovascular Exam: +S1, +S2 Additional comments: port without erythema or signs of infection - GI/Abdominal Exam GI & Abdominal Exam: Normal Bowel Sounds, Soft. absent: Tenderness - Extremities Exam Extremities exam: Positive for: full ROM, normal inspection - Back Exam Back exam: NORMAL INSPECTION - Neurological Exam Neurological exam: Alert, Oriented x3 - Psychiatric Exam Psychiatric exam: Normal Affect, Normal Mood - Skin Skin Exam: Dry, Intact, Normal Color, Warm Results - Vital Signs Recent Vital Signs: Last Vital Signs Temp 100.9 F H 04/29/17 10:12 Pulse 102 H 04/29/17 10:12 Resp 20 04/29/17 10:12 BP 104/42 L 04/29/17 10:12 Pulse Ox 97 04/29/17 10:12 - Labs Result Diagrams: 04/29/17 06:03 04/29/17 06:03 Labs: Laboratory Results - last 24 hr 04/28/17 04/28/17 04/29/17 18:53 18:53 06:03 WBC 16.3 H D RBC 3.57 Hgb 9.4 L Hct 29.3 L MCV 82.1 MCH 26.3 MCHC 32.1 RDW 19.0 H Plt Count 259 MPV 8.7 pO2 42 VBG pH 7.41 VBG pCO2 40.0 VBG HCO3 25.4 VBG Total CO2 26.6 VBG O2 Sat (Calc) 78.5 H VBG Base Excess 0.7 VBG Potassium 4.0 Sodium 130.0 L Chloride 98.0 Glucose 101 Lactate 1.5 FiO2 21.0 Potassium Carbon Dioxide Anion Gap BUN Creatinine Est GFR ( Amer) Est GFR (Non-Af Amer) Random Glucose Calcium Total Bilirubin Direct Bilirubin AST ALT Alkaline Phosphatase Total Protein Albumin Globulin Albumin/Globulin Ratio Procalcitonin 0.67 H Venous Blood Potassium 4.0 Influenza Typ A,B (EIA) 04/29/17 04/29/17 04/29/17 06:03 07:30 07:45 WBC RBC Hgb Hct MCV MCH MCHC RDW Plt Count MPV pO2 250 H VBG pH 7.45 H VBG pCO2 34.0 L VBG HCO3 23.6 VBG Total CO2 24.6 VBG O2 Sat (Calc) 100.2 H VBG Base Excess 0.1 VBG Potassium 3.7 Sodium 132 130.0 L Chloride 101 101.0 Glucose 109 H Lactate 1.2 FiO2 21.0 Potassium 3.9 Carbon Dioxide 24 Anion Gap 11 BUN 10 Creatinine 0.5 L Est GFR ( Amer) > 60 Est GFR (Non-Af Amer) > 60 Random Glucose 105 Calcium 8.5 Total Bilirubin 1.4 H Direct Bilirubin 0.9 H AST 99 H ALT 38 Alkaline Phosphatase 208 H Total Protein 6.8 Albumin 3.2 Globulin 3.5 Albumin/Globulin Ratio 0.9 L Procalcitonin Venous Blood Potassium 3.7 Influenza Typ A,B (EIA) 04/29/17 12:10 WBC RBC Hgb Hct MCV MCH MCHC RDW Plt Count MPV pO2 VBG pH VBG pCO2 VBG HCO3 VBG Total CO2 VBG O2 Sat (Calc) VBG Base Excess VBG Potassium Sodium Chloride Glucose Lactate FiO2 Potassium Carbon Dioxide Anion Gap BUN Creatinine Est GFR ( Amer) Est GFR (Non-Af Amer) Random Glucose Calcium Total Bilirubin Direct Bilirubin AST ALT Alkaline Phosphatase Total Protein Albumin Globulin Albumin/Globulin Ratio Procalcitonin Venous Blood Potassium Influenza Typ A,B (EIA) Negative for flu a/b Assessment & Plan - Assessment and Plan (Free Text) Assessment: This is a 61 yo female with past medical hx of colon cancer with mets to liver, presenting with fever, leukocytosis, abdominal pain 1. Fever and leukocytosis -abd/pelvis ct shows mets to liver and omental mets -cxr shows no active disease -blood culture pending -urine culture pending -white count decreased to 16.3 from 24.4 -suspect fever secondary to malignancy, as mets to liver is known etiology of fever -however, must rule out port infection -start broad spectrum abx -we will start zosyn 3.375 g IV q6 hrs -we will check flu -we will check procal -monitor clinically discussed with Dr. Rowley <Dilan Rowley - Last Filed: 04/29/17 16:51> Meds - Medications Medications: Current Medications Sodium Chloride (Sodium Chloride 0.9%) 1,000 mls @ 150 mls/hr IV .Q6H40M [facility] Last Admin: 04/29/17 13:30 Dose: 150 mls/hr Piperacillin Sod/Tazobactam Sod (Zosyn 3.375 In Ns 100ml) 100 mls @ 200 mls/hr IVPB Q6 [facility] PRN Reason: Protocol Last Admin: 04/29/17 11:08 Dose: 200 mls/hr Results - Vital Signs Recent Vital Signs: Last Vital Signs Temp 100.9 F H 04/29/17 10:12 Pulse 102 H 04/29/17 10:12 Resp 20 04/29/17 10:12 BP 104/42 L 04/29/17 10:12 Pulse Ox 97 04/29/17 10:12 - Labs Result Diagrams: 04/29/17 06:03 04/29/17 06:03 Labs: Laboratory Results - last 24 hr 04/28/17 04/28/17 04/29/17 18:53 18:53 06:03 WBC 16.3 H D RBC 3.57 Hgb 9.4 L Hct 29.3 L MCV 82.1 MCH 26.3 MCHC 32.1 RDW 19.0 H Plt Count 259 MPV 8.7 pO2 42 VBG pH 7.41 VBG pCO2 40.0 VBG HCO3 25.4 VBG Total CO2 26.6 VBG O2 Sat (Calc) 78.5 H VBG Base Excess 0.7 VBG Potassium 4.0 Sodium 130.0 L Chloride 98.0 Glucose 101 Lactate 1.5 FiO2 21.0 Potassium Carbon Dioxide Anion Gap BUN Creatinine Est GFR ( Amer) Est GFR (Non-Af Amer) Random Glucose Calcium Total Bilirubin Direct Bilirubin AST ALT Alkaline Phosphatase Total Protein Albumin Globulin Albumin/Globulin Ratio Procalcitonin 0.67 H Venous Blood Potassium 4.0 Influenza Typ A,B (EIA) 04/29/17 04/29/17 04/29/17 06:03 07:30 07:45 WBC RBC Hgb Hct MCV MCH MCHC RDW Plt Count MPV pO2 250 H VBG pH 7.45 H VBG pCO2 34.0 L VBG HCO3 23.6 VBG Total CO2 24.6 VBG O2 Sat (Calc) 100.2 H VBG Base Excess 0.1 VBG Potassium 3.7 Sodium 132 130.0 L Chloride 101 101.0 Glucose 109 H Lactate 1.2 FiO2 21.0 Potassium 3.9 Carbon Dioxide 24 Anion Gap 11 BUN 10 Creatinine 0.5 L Est GFR ( Amer) > 60 Est GFR (Non-Af Amer) > 60 Random Glucose 105 Calcium 8.5 Total Bilirubin 1.4 H Direct Bilirubin 0.9 H AST 99 H ALT 38 Alkaline Phosphatase 208 H Total Protein 6.8 Albumin 3.2 Globulin 3.5 Albumin/Globulin Ratio 0.9 L Procalcitonin Venous Blood Potassium 3.7 Influenza Typ A,B (EIA) 04/29/17 12:10 WBC RBC Hgb Hct MCV MCH MCHC RDW Plt Count MPV pO2 VBG pH VBG pCO2 VBG HCO3 VBG Total CO2 VBG O2 Sat (Calc) VBG Base Excess VBG Potassium Sodium Chloride Glucose Lactate FiO2 Potassium Carbon Dioxide Anion Gap BUN Creatinine Est GFR ( Amer) Est GFR (Non-Af Amer) Random Glucose Calcium Total Bilirubin Direct Bilirubin AST ALT Alkaline Phosphatase Total Protein Albumin Globulin Albumin/Globulin Ratio Procalcitonin Venous Blood Potassium Influenza Typ A,B (EIA) Negative for flu a/b Assessment & Plan - Assessment and Plan (Free Text) Assessment: Infectious Diseases Attending Physician Attestation Patient seen and examined, discussed with medical director/head team physician. I have reviewed the patient's HPI, ROS, past medical, family, personal and social histories, physical exam, imaging and labs. I agree with the above findings, assessment and plan. In addition, will follow up blood, urine cx for SIRS R/O sepsis in this patient with metastatic colon cancer. Overall prognosis is poor. Gave a dose of IV Vanco and will continue Zosyn.
--- NOTE | 2017-04-29 16:53 | CP.PCM.CON ---
<Cathi Meade - Last Filed: 04/29/17 16:56> History of Present Illness - History of Present Illness History of Present Illness: Seen and examined at the bedside earlier today, chart review. Request for GI consult is for colon cancer with metastasis to the liver. HPI: This is a 61-year-old female with a history of colon cancer with metastasis to the liver sent to the emergency room for further evaluation by her oncologist Dr. Pretty for abnormal labs and complaints of abdominal pain. The patient was found to have leukocytosis and complained of abdominal pain that started on Thursday. The patient reported that Thursday night she started with left lower hip pain that radiated across to the right side and up to the right upper quadrant. This morning she reports that the pain has resolved does not even complain of a soreness. She did have some nausea and vomiting 1 yesterday. Prior this she recalls that she was in her usual state of health on Thursday, recalls eating a column or a solid and legs T Abiodun and next day she reported having the pain she denies any diarrhea only after she had taken MiraLAX on Thursday. After the second on the second bowel movement the stool was formed. She denies any melena or bright red blood per rectum. She does have a history of gallstones she is on ursodiol. Her last chemotherapy treatment was 2 weeks ago. She denies any symptoms of acid reflux, no fever or chills. On admission she had a CT scan of abdomen and pelvis with IV contrast only and noted to have increasing metastatic disease throughout the liver with a new subscapular fluid collection. As well as increasing omental metastasis, she does have gallstones present. She reports that she saw a specialist for her liver and received injectable treatments 2 she cannot recall the name of the treatment. In review of her chart she did have a PET scan on 06/09/2016 and this reported worsening of metastasis in the liver especially in the left lobe since her previous study as well as new FDG avid soft tissue nodules in the lymph nodes, lesions in the posterior left iliac bone which is consistent/ suggestive of a new metastasis. She was able to tolerate breakfast this morning no reports of diarrhea, or overt GI bleed. Denies any loss of appetite. Or recent weight loss. Past medical history: Endometriosis, colon cancer with metastasis currently on chemotherapy, gallstones Surgical history: Laparotomy for uterine fibroids, Port-A-Cath, last colonoscopy was 12/2015 which showed the colon mass, internal hemorrhoids and diverticulosis Allergies: Knowles Family history: Denies Social history: Socially drinks wine on occasion, smoking denied, recreational drug denies Medications: Reviewed as per MAR ROS: Systems reviewed with positive findings see HPI Past Patient History - Infectious Disease Hx of Infectious Diseases: None - Tetanus Immunizations Tetanus Immunization: Unknown - Past Medical History & Family History Past Medical History?: Yes Past Family History: Reviewed and not pertinent - Past Social History Smoking Status: Never Smoked Chewing Tobacco Use: No Cigar Use: No Alcohol: Social Drugs: Denies Home Situation {Lives}: Alone Domestic Violence: Negative - CARDIAC Hx Cardiac Disorders: Yes Hx Hypertension: Yes - PULMONARY Hx Respiratory Disorders: No - NEUROLOGICAL Hx Neurological Disorder: No - HEENT Hx HEENT Problems: No - RENAL Hx Chronic Kidney Disease: Yes Hx Kidney Stones: Yes - ENDOCRINE/METABOLIC Hx Endocrine Disorders: No - HEMATOLOGICAL/ONCOLOGICAL Hx Blood Disorders: Yes Hx Anemia: Yes (blood transfusion) Hx Cancer: Yes (colon CA) Hx Chemotherapy: Yes Hx Metastesis: Yes (liver) - INTEGUMENTARY Hx Dermatological Problems: No - MUSCULOSKELETAL/RHEUMATOLOGICAL Hx Falls: No - GASTROINTESTINAL Hx Gastrointestinal Disorders: Yes (colon ca) Other/Comment: liver/colon ca on chemo. HX BLOOD TRANSFUSION - GENITOURINARY/GYNECOLOGICAL Hx Genitourinary Disorders: Yes Other/Comment: fibroids, endometriosis - PSYCHIATRIC Hx Psychophysiologic Disorder: No Hx Depression: No Hx Emotional Abuse: No Hx Physical Abuse: No - SURGICAL HISTORY Hx Surgeries: Yes Other/Comment: laparotomy for uterine fibroid resectionR chest port placedR chest port placed - ANESTHESIA Hx Anesthesia: Yes Meds Allergies/Adverse Reactions: Allergies Allergy/AdvReac Type Severity Reaction Status Date / Time dusty Allergy Intermediate URTICARIA Uncoded 04/28/17 13:14 - Medications Medications: Current Medications Sodium Chloride (Sodium Chloride 0.9%) 1,000 mls @ 150 mls/hr IV .Q6H40M [facility] Last Admin: 04/29/17 13:30 Dose: 150 mls/hr Piperacillin Sod/Tazobactam Sod (Zosyn 3.375 In Ns 100ml) 100 mls @ 200 mls/hr IVPB Q6 [facility] PRN Reason: Protocol Last Admin: 04/29/17 11:08 Dose: 200 mls/hr Physical Exam - Constitutional Appears: No Acute Distress - Eye Exam Eye Exam: Normal appearance. absent: Scleral icterus - ENT Exam ENT Exam: Mucous Membranes Moist - Neck Exam Neck exam: Positive for: Normal Inspection - Respiratory Exam Respiratory Exam: Clear to Auscultation Bilateral, NORMAL BREATHING PATTERN. absent: Respiratory Distress - Cardiovascular Exam Cardiovascular Exam: +S1, +S2 - GI/Abdominal Exam GI & Abdominal Exam: Normal Bowel Sounds, Soft. absent: Distended, Guarding, Organomegaly, Rebound, Tenderness - Extremities Exam Extremities exam: Positive for: pedal pulses present. Negative for: calf tenderness, pedal edema - Neurological Exam Neurological exam: Alert, Oriented x3 - Skin Skin Exam: Dry, Warm Results - Vital Signs Recent Vital Signs: Last Vital Signs Temp 100.9 F H 04/29/17 10:12 Pulse 102 H 04/29/17 10:12 Resp 20 04/29/17 10:12 BP 104/42 L 04/29/17 10:12 Pulse Ox 97 04/29/17 10:12 - Labs Result Diagrams: 04/29/17 06:03 04/29/17 06:03 Labs: Laboratory Results - last 24 hr 04/28/17 04/28/17 04/29/17 18:53 18:53 06:03 WBC 16.3 H D RBC 3.57 Hgb 9.4 L Hct 29.3 L MCV 82.1 MCH 26.3 MCHC 32.1 RDW 19.0 H Plt Count 259 MPV 8.7 pO2 42 VBG pH 7.41 VBG pCO2 40.0 VBG HCO3 25.4 VBG Total CO2 26.6 VBG O2 Sat (Calc) 78.5 H VBG Base Excess 0.7 VBG Potassium 4.0 Sodium 130.0 L Chloride 98.0 Glucose 101 Lactate 1.5 FiO2 21.0 Potassium Carbon Dioxide Anion Gap BUN Creatinine Est GFR ( Amer) Est GFR (Non-Af Amer) Random Glucose Calcium Total Bilirubin Direct Bilirubin AST ALT Alkaline Phosphatase Total Protein Albumin Globulin Albumin/Globulin Ratio Procalcitonin 0.67 H Venous Blood Potassium 4.0 Influenza Typ A,B (EIA) 04/29/17 04/29/17 04/29/17 06:03 07:30 07:45 WBC RBC Hgb Hct MCV MCH MCHC RDW Plt Count MPV pO2 250 H VBG pH 7.45 H VBG pCO2 34.0 L VBG HCO3 23.6 VBG Total CO2 24.6 VBG O2 Sat (Calc) 100.2 H VBG Base Excess 0.1 VBG Potassium 3.7 Sodium 132 130.0 L Chloride 101 101.0 Glucose 109 H Lactate 1.2 FiO2 21.0 Potassium 3.9 Carbon Dioxide 24 Anion Gap 11 BUN 10 Creatinine 0.5 L Est GFR ( Amer) > 60 Est GFR (Non-Af Amer) > 60 Random Glucose 105 Calcium 8.5 Total Bilirubin 1.4 H Direct Bilirubin 0.9 H AST 99 H ALT 38 Alkaline Phosphatase 208 H Total Protein 6.8 Albumin 3.2 Globulin 3.5 Albumin/Globulin Ratio 0.9 L Procalcitonin Venous Blood Potassium 3.7 Influenza Typ A,B (EIA) 04/29/17 12:10 WBC RBC Hgb Hct MCV MCH MCHC RDW Plt Count MPV pO2 VBG pH VBG pCO2 VBG HCO3 VBG Total CO2 VBG O2 Sat (Calc) VBG Base Excess VBG Potassium Sodium Chloride Glucose Lactate FiO2 Potassium Carbon Dioxide Anion Gap BUN Creatinine Est GFR ( Amer) Est GFR (Non-Af Amer) Random Glucose Calcium Total Bilirubin Direct Bilirubin AST ALT Alkaline Phosphatase Total Protein Albumin Globulin Albumin/Globulin Ratio Procalcitonin Venous Blood Potassium Influenza Typ A,B (EIA) Negative for flu a/b Assessment & Plan - Assessment and Plan (Free Text) Assessment: Assessment: Resolved abdominal pain, differentials to consider biliary colic, ?mild gastroenteritis,metastatic cancer Cholelithiasis, last abdominal ultrasound was 06/2016 did show gallstones no inflammation and the CBD measured 5 mm Colon cancer with metastasis liver and new metastases to bone and peritoneum, presently on chemotherapy Leukocytosis/H/o Fever, r/o port infection Anemia Elevated LFTs may be secondary to liver metastasis Plan: Diet as tolerated Trend LFTs Continue PPI on IV antibiotic fu urine/blood culture Consider abdominal ultrasound Oncology, ID follow-up Thank you for this consult and for allowing us to participate in your patient's care, further recommendations based upon clinical course. Seen and discussed with Dr. Turk. <Joi Turk V - Last Filed: 04/30/17 00:27> Meds - Medications Medications: Current Medications Acetaminophen (Tylenol 325mg Tab) 650 mg PO Q4H PRN PRN Reason: Pain, Mild (1-3) Sodium Chloride (Sodium Chloride 0.9%) 1,000 mls @ 150 mls/hr IV .Q6H40M [facility] Last Admin: 04/29/17 23:33 Dose: 150 mls/hr Piperacillin Sod/Tazobactam Sod (Zosyn 3.375 In Ns 100ml) 100 mls @ 200 mls/hr IVPB Q6 [facility] PRN Reason: Protocol Last Admin: 04/29/17 23:33 Dose: 200 mls/hr Pantoprazole Sodium (Protonix Ec Tab) 40 mg PO 0600 [facility] Sucralfate (Carafate Oral Susp) 1 gm PO 0600,1600 [facility] Tramadol HCl (Ultram) 50 mg PO Q8 PRN PRN Reason: Pain, moderate (4-7) Ursodiol (Actigall) 300 mg PO DAILY [facility] Results - Vital Signs Recent Vital Signs: Last Vital Signs Temp 97.8 F 04/29/17 16:00 Pulse 85 04/29/17 16:00 Resp 20 04/29/17 16:00 BP 115/68 04/29/17 16:00 Pulse Ox 95 04/29/17 16:00 - Labs Result Diagrams: 04/29/17 06:03 04/29/17 06:03 Labs: Laboratory Results - last 24 hr 04/28/17 04/29/17 04/29/17 18:53 06:03 06:03 WBC 16.3 H D RBC 3.57 Hgb 9.4 L Hct 29.3 L MCV 82.1 MCH 26.3 MCHC 32.1 RDW 19.0 H Plt Count 259 MPV 8.7 pO2 VBG pH VBG pCO2 VBG HCO3 VBG Total CO2 VBG O2 Sat (Calc) VBG Base Excess VBG Potassium Glucose Lactate FiO2 Sodium 132 Potassium 3.9 Chloride 101 Carbon Dioxide 24 Anion Gap 11 BUN 10 Creatinine 0.5 L Est GFR ( Amer) > 60 Est GFR (Non-Af Amer) > 60 Random Glucose 105 Calcium 8.5 Total Bilirubin Direct Bilirubin AST ALT Alkaline Phosphatase Total Protein Albumin Globulin Albumin/Globulin Ratio Procalcitonin 0.67 H Venous Blood Potassium Influenza Typ A,B (EIA) 01/10/18 01/10/18 01/10/18 07:30 07:45 12:10 WBC RBC Hgb Hct MCV MCH MCHC RDW Plt Count MPV pO2 250 H VBG pH 7.45 H VBG pCO2 34.0 L VBG HCO3 23.6 VBG Total CO2 24.6 VBG O2 Sat (Calc) 100.2 H VBG Base Excess 0.1 VBG Potassium 3.7 Glucose 109 H Lactate 1.2 FiO2 21.0 Sodium 130.0 L Potassium Chloride 101.0 Carbon Dioxide Anion Gap BUN Creatinine Est GFR ( Amer) Est GFR (Non-Af Amer) Random Glucose Calcium Total Bilirubin 1.4 H Direct Bilirubin 0.9 H AST 99 H ALT 38 Alkaline Phosphatase 208 H Total Protein 6.8 Albumin 3.2 Globulin 3.5 Albumin/Globulin Ratio 0.9 L Procalcitonin Venous Blood Potassium 3.7 Influenza Typ A,B (EIA) Negative for flu a/b Attending/Attestation - Attestation I have personally seen and examined this patient.: Yes I have fully participated in the care of the patient.: Yes I have reviewed all pertinent clinical information: Yes Notes (Text): This is an addendum to GI consult report dictated by Cathi Meade APN.The patient was seen and examined earlier. Medical records, lab studies, imagings were reviewed. Last 24 hours events reviewed. Agreed with the above treatment plan as outlined in Cathi Meade APN's notes the with the addition of the following feels better her right upper quadrant discomfort has improved Patient does Calcified stones. Metastatic to colon cancer On examination abdomen soft mild tenderness present in the right upper quadrant area Continue the antibiotics and HIDA scan if the patient remains symptomatic Actigall may not be able to dissolve the gallstones as they are already calcified 04/30/17 00:25
[2017-04-30] MEDS: Pantoprazole 40 mg EC Tab PO SCH (06:17)
[2017-04-30] MEDS: Piperacillin/Tazobact 3.375 gm 100 ML IVPB SCH ×4 (06:18→23:36)
[2017-04-30] MEDS: Sucralfate 1 gm/10 ml Oral Susp UD PO SCH ×2 (06:18→17:10)
[2017-04-30] MEDS: Sodium Chloride 0.9% 1,000 ML IV SCH ×4 (06:21→21:47)
--- NOTE | 2017-04-30 06:31 | HP ---
HISTORY OF PRESENT ILLNESS: This is a 61-year-old female with past medical history of stage IV metastatic colorectal cancer, primary tumor in the right colon, the ascending colon, in the cecum with documented metastasis to the liver, to the lung, to the retroperitoneum and to the root of the mesentery, on systemic chemotherapy, currently with FOLFIRI plus Avastin, status post treatment with Yttrium-90 for the liver lesions, history of hypertension, GERD, who is admitted via the emergency room after being examined in the office with chief complaint of diffuse abdominal cramps, left hip pain. The patient did feel fatigued over the weekend and then started to experience left hip pain and then started having diffuse abdominal cramps both in the right and the lower quadrants. Pain came on suddenly, it was constant and throbbing. The patient was noted to be in the office having, in addition to the abdominal cramps, an elevated white count. The patient was advised to come to the ER. In the ER, while she was being monitored, the patient had a temperature of 101.5 degrees Fahrenheit. She was cultured and started on IV antibiotics with Zosyn, and currently the patient is afebrile on the floor. The patient had one episode of nonbloody, nonbilious vomiting over the weekend. She denies any sick contacts or recent travel. No recent sick contacts. The patient has lost about 2 to 3 pounds over the last week. She tells me that she had eaten some seafood over the weekend, it is unclear whether that may have triggered off some of these symptoms. A week before that, despite her metastatic disease, the patient's performance status on ECOG scale was almost 0 and she was trying to resume her chemotherapy, which is given every 3 weeks, this week. PAST MEDICAL HISTORY: Significant for stage IV colon cancer with metastasis to the liver, retroperitoneal area, lungs and bone, currently on combination of FOLFIRI, Avastin and Xgeva, status post Yttrium-90 for liver metastasis. She is currently in the hospital. PAST SURGICAL HISTORY: Port placement. ALLERGIES: THE PATIENT HAS NO KNOWN ALLERGIES. FAMILY HISTORY: Noncontributory. MEDICATIONS: The patient's home medications include vitamin D, B6, omeprazole, and lisinopril. SOCIAL HISTORY: The patient denies any smoking. She is a social drinker. No history of any drug abuse. She lives alone. REVIEW OF SYSTEMS: The patient denies any history of nausea or vomiting currently in the hospital, but she had one episode of nonbilious vomitus over the weekend, complains of abdominal cramps, left hip pain, most of which the symptoms have dissipated and she came into the hospital. The rest of the review of systems is all negative except for what is mentioned in the HPI. PHYSICAL EXAMINATION: GENERAL: The patient appeared to be in no acute distress, ill looking, temporal muscle wasting is noted. HEENT: Head is normocephalic and atraumatic. Conjunctivae are pale. Sclerae are anicteric. Pupils are equally reactive to light and accommodation. Examination of the oropharynx reveals tongue to be coated. No oropharyngeal lesions are noted. No ulcerations are noted on the tongue. There is no evidence of fungal infection. LUNGS: Reveal it to be clear to percussion and auscultation. CARDIOVASCULAR SYSTEM: Reveals tachycardia. S1 and S2 are normal. No gallop or murmur is heard. The patient has a port on the right chest wall. There is no erythema or signs of infection. ABDOMEN: Reveals it to be mildly distended. Liver is not palpable. The patient is complaining of diffuse abdominal tenderness, but there is no rebound, rigidity, or guarding noted. There is no evidence of any palpable masses at this time on physical examination of the abdomen. Bowel sounds are hyperactive. BACK: Examination of the back reveals it to be normal to inspection. No paraspinal tenderness is noted. NEUROLOGIC: Reveals higher functions to be normal. No focal deficits are noted. /RECTAL: Deferred. EXTREMITIES: Examination of lower extremities reveal full range of motion of all 4 extremities without any cyanosis, clubbing, or edema. SKIN: Skin turgor is decreased. No skin lesions are noted. VITAL SIGNS: Stable. T-max is 100.9, pulse is 102, respirations 20, blood pressure 104/42, pulse oximetry is 97% on room air. LABORATORY DATA: Reviewed. White count is 16.3, hemoglobin 9.4, hematocrit 29, platelet count of 259,000. Sodium is 132, K is 3.9, chloride is 101, CO2 is 24, BUN is 10, creatinine 0.5, and blood sugar is 105. Lactate level in the emergency room was not elevated, but 1.2 on the test done early this morning. Total bilirubin is 1.4, direct bilirubin of 0.9, AST is 99, ALT is 38, alkaline phosphatase is 208, total protein is 6.8, albumin is 3.2. The patient's x-rays were reviewed. Chest x-ray reveal no significant abnormalities at this point in time. The lungs appear to be clear. There is no evidence of significant pleural effusion. No pneumothorax. Cardiac silhouette appears to be normal without any pericardial effusion. CAT scan of the abdomen and pelvis which was done in the emergency room was also reviewed and that reveals significant findings. Liver shows increasing metastatic disease throughout the liver, multiple confluent masses in the posterior right lobe of the liver, there is now extension into the caudate lobe, new subcapsular fluid collection seen anteriorly and laterally. Pancreas is unremarkable. There is an increase in size of the omental metastasis that seen on axillary image 40 series 2. No enlarged lymph nodes are seen in the retroperitoneum. Definite that there is evidence of increasing metastatic disease in the liver with new subcapsular fluid collection and increasing omental metastasis on the current regimen of FOLFIRI plus Avastin. ASSESSMENT, NOTES, AND PLAN: In view of the elevated white count and the fever, one has to be concerned about underlying infection, probably of gastrointestinal origin in the background history of having metastatic cancer, the patient needs to be covered with IV antibiotics which has already been done. The patient is on vancomycin and Zosyn. Infectious Disease consult has been obtained. Repeat blood lactate levels have been obtained. IV fluids have been increased to 150 mL an hour. We will get Infectious Disease input. We will get Gastrointestinal input and we will get a surgical evaluation as well. Prolactin levels have also been ordered and depending on the findings over the next 24 to 48 hours, we will make adjustments. We told to the patient at this point in time that we will continue the IV antibiotics and IV fluids and if she continues to improve symptomatically, then we will think of tapering her medications. The patient has been approved for a new drug called Stivarga initiation of the new drug, which is a multi-kinase inhibitor till the patient is medically stable. We will advance her diet very slowly. Right now, she is on a heart healthy diet. I told her to take things as much as she can tolerate until I get input from all the other consultants. Time spent with the patient was more than 90 minutes. Thalia Pretty MD
[2017-04-30 07:22] LABS: BASO # 0.05 K/mm3 (0.0-2.0); BASO % 0.4 % (0.0-3.0); EOS # 0.1 (0.0-0.7); EOS % 0.4 % (1.5-5.0); GRAN # 9.26 (1.4-6.5); GRAN % 76.6 % (50.0-68.0); HEMOGLOBIN 8.3 g/dL (12.0-16.0); LYMPH # 1.2 (1.2-3.4); LYMPH % 9.9 % (22.0-35.0); MEAN CELL VOLUME 82.6 fl (80.0-105.0); MEAN CORPUSCULAR HEMOGLOBIN 26.3 pg (25.0-35.0); MEAN CORPUSCULAR HGB CONC 31.8 g/dl (31.0-37.0); MEAN PLATELET VOLUME 8.7 fl (7.0-11.0); MONO # 1.5 (0.1-0.6); MONO % 12.7 % (1.0-6.0); RBC 3.16 10^6/uL (3.5-6.1); RED CELL DISTRIBUTION WIDTH 19.3 % (11.5-14.5); WHITE BLOOD COUNT 12.1 10^3/ul (4.5-11.0)
[2017-04-30 07:50] LABS: ALB/GLOB RATIO 0.8 (1.1-1.8); ALBUMIN 2.7 g/dL (3.0-4.8); ALT/SGPT 41 U/L (7-56); AST/SGOT 76 U/L (14-36); BLOOD UREA NITROGEN 8 mg/dL (7-21); CALCIUM 7.9 mg/dL (8.4-10.5); GFR AFRICAN-AMERICAN > 60; GFR NON-AFRICAN AMERICAN > 60
--- NOTE | 2017-04-30 08:15 | CP.PCM.PN ---
<QasimBabak - Last Filed: 04/30/17 08:11> Subjective - Date & Time of Evaluation Date of Evaluation: 04/30/17 Time of Evaluation: 06:45 - Subjective Subjective: Surgery Progress note. Dr. Stokes Pt seen and examined at bedside. No acute events overnight. No F/C. No Abd pain. No N/V/D. Having normal BMs and reports flatus. Objective - Vital Signs/Intake and Output Vital Signs (last 24 hours): Temp Pulse Resp BP Pulse Ox 97.8 F 85 20 115/68 95 04/29/17 16:00 04/29/17 16:00 04/29/17 16:00 04/29/17 16:00 04/29/17 16:00 Intake and Output: 04/30/17 04/30/17 06:59 18:59 Intake Total 2820 Balance 2820 - Medications Medications: Current Medications Acetaminophen (Tylenol 325mg Tab) 650 mg PO Q4H PRN PRN Reason: Pain, Mild (1-3) Sodium Chloride (Sodium Chloride 0.9%) 1,000 mls @ 150 mls/hr IV .Q6H40M [facility] Last Admin: 04/30/17 06:21 Dose: 150 mls/hr Piperacillin Sod/Tazobactam Sod (Zosyn 3.375 In Ns 100ml) 100 mls @ 200 mls/hr IVPB Q6 [facility] PRN Reason: Protocol Last Admin: 04/30/17 06:18 Dose: 200 mls/hr Pantoprazole Sodium (Protonix Ec Tab) 40 mg PO 0600 [facility] Last Admin: 04/30/17 06:17 Dose: 40 mg Sucralfate (Carafate Oral Susp) 1 gm PO 0600,1600 [facility] Last Admin: 04/30/17 06:18 Dose: 1 gm Tramadol HCl (Ultram) 50 mg PO Q8 PRN PRN Reason: Pain, moderate (4-7) Last Admin: 04/30/17 02:13 Dose: 50 mg Ursodiol (Actigall) 300 mg PO DAILY [facility] - Labs Labs: 04/30/17 06:30 04/30/17 06:30 PT 16.6 SECONDS (9.4-12.5) H 04/28/17 14:05 INR 1.45 (0.93-1.08) H 04/28/17 14:05 APTT 32.4 Seconds (25.1-36.5) 04/28/17 14:05 - Constitutional Appears: Well, Non-toxic, No Acute Distress - Head Exam Head Exam: ATRAUMATIC, NORMAL INSPECTION, NORMOCEPHALIC - Eye Exam Eye Exam: EOMI - ENT Exam ENT Exam: Mucous Membranes Moist - Respiratory Exam Respiratory Exam: NORMAL BREATHING PATTERN. absent: Accessory Muscle Use, Respiratory Distress - GI/Abdominal Exam GI & Abdominal Exam: Soft. absent: Distended, Firm, Guarding, Tenderness - Extremities Exam Extremities Exam: Normal Inspection. absent: Calf Tenderness - Neurological Exam Neurological Exam: Alert, Awake, Oriented x3 - Psychiatric Exam Psychiatric exam: Normal Affect, Normal Mood - Skin Skin Exam: Dry, Intact, Normal Color, Warm Assessment and Plan - Assessment and Plan (Free Text) Assessment: 61yo F with metastatic Ascending Colon CA, not previously operated. Here for Abd pain, Leukocytosis and fever - Urine Culture - negative Plan: - f/u blood cultures - NGTD - Continue to monitor for signs of obstruction; No plans for acute surgical intervention. - Continue CA treatment as per Oncology team Further recs as per Dr. Divya Tripp PGY1 surgery pager: [phone] <Michael Stokes - Last Filed: 04/30/17 21:10> Objective - Vital Signs/Intake and Output Vital Signs (last 24 hours): Temp Pulse Resp BP Pulse Ox 98 F 91 H 18 120/80 98 04/30/17 16:00 04/30/17 16:00 04/30/17 16:00 04/30/17 16:00 04/30/17 16:00 Intake and Output: 04/30/17 05/01/17 18:59 06:59 Intake Total 725 Balance 725 - Medications Medications: Current Medications Acetaminophen (Tylenol 325mg Tab) 650 mg PO Q4H PRN PRN Reason: Pain, Mild (1-3) Sodium Chloride (Sodium Chloride 0.9%) 1,000 mls @ 150 mls/hr IV .Q6H40M [facility] Last Admin: 04/30/17 17:10 Dose: 150 mls/hr Piperacillin Sod/Tazobactam Sod (Zosyn 3.375 In Ns 100ml) 100 mls @ 200 mls/hr IVPB Q6 [facility] PRN Reason: Protocol Last Admin: 04/30/17 17:11 Dose: 200 mls/hr Pantoprazole Sodium (Protonix Ec Tab) 40 mg PO 0600 [facility] Last Admin: 04/30/17 06:17 Dose: 40 mg Sucralfate (Carafate Oral Susp) 1 gm PO 0600,1600 [facility] Last Admin: 04/30/17 17:10 Dose: 1 gm Tramadol HCl (Ultram) 50 mg PO Q8 PRN PRN Reason: Pain, moderate (4-7) Last Admin: 04/30/17 02:13 Dose: 50 mg Ursodiol (Actigall) 300 mg PO DAILY [facility] Last Admin: 04/30/17 09:19 Dose: 300 mg - Labs Labs: 04/30/17 06:30 04/30/17 06:30 PT 16.6 SECONDS (9.4-12.5) H 04/28/17 14:05 INR 1.45 (0.93-1.08) H 04/28/17 14:05 APTT 32.4 Seconds (25.1-36.5) 04/28/17 14:05 Assessment and Plan - Assessment and Plan (Free Text) Assessment: Patient was seen, evaluated and examined by me. I agree with the assessment and plan as per the resident's note.
--- NOTE | 2017-04-30 15:07 | NM ---
PROCEDURE: Nuclear Medicine Hepatobiliary Scan HISTORY: Cholecystitis. COMPARISON: April 28, 2017. CT abdomen and pelvis TECHNIQUE: 5.6 mCi of technetium 99m Mebrofenin was administered intravenously. Planar images of the abdomen were obtained at 5 min intervals to 60 mins. Delayed images were also obtained. FINDINGS: LIVER: Heterogeneous uptake of radionuclide in the liver consistent with findings on recent CT scan, multiple space-occupying lesions, metastasis. COMMON BILE DUCT: identified at 15 mins. GALLBLADDER: identified at 30 mins. SMALL BOWEL: Identified at 30 mins. IMPRESSION: No evidence of acute cholecystitis, the cystic duct is patent. Markedly abnormal accumulation of radionuclide liver consistent with hepatic metastatic disease.
--- NOTE | 2017-04-30 15:54 | CP.PCM.PN ---
Subjective - Date & Time of Evaluation Date of Evaluation: 04/30/17 Time of Evaluation: 11:20 - Subjective Subjective: Patient is comfortable, no fevers, not in distress, afebrile. Objective - Vital Signs/Intake and Output Vital Signs (last 24 hours): Temp Pulse Resp BP Pulse Ox 99.3 F 97 H 20 125/80 99 04/30/17 09:12 04/30/17 09:12 04/30/17 09:12 04/30/17 09:12 04/30/17 09:12 Intake and Output: 04/30/17 04/30/17 06:59 18:59 Intake Total 2820 Balance 2820 - Medications Medications: Current Medications Acetaminophen (Tylenol 325mg Tab) 650 mg PO Q4H PRN PRN Reason: Pain, Mild (1-3) Sodium Chloride (Sodium Chloride 0.9%) 1,000 mls @ 150 mls/hr IV .Q6H40M [facility] Last Admin: 04/30/17 09:19 Dose: 150 mls/hr Piperacillin Sod/Tazobactam Sod (Zosyn 3.375 In Ns 100ml) 100 mls @ 200 mls/hr IVPB Q6 VAL[facility]INO PRN Reason: Protocol Last Admin: 04/30/17 06:18 Dose: 200 mls/hr Pantoprazole Sodium (Protonix Ec Tab) 40 mg PO 0600 [facility] Last Admin: 04/30/17 06:17 Dose: 40 mg Sucralfate (Carafate Oral Susp) 1 gm PO 0600,1600 [facility] Last Admin: 04/30/17 06:18 Dose: 1 gm Tramadol HCl (Ultram) 50 mg PO Q8 PRN PRN Reason: Pain, moderate (4-7) Last Admin: 04/30/17 02:13 Dose: 50 mg Ursodiol (Actigall) 300 mg PO DAILY [facility] Last Admin: 04/30/17 09:19 Dose: 300 mg - Labs Labs: 04/30/17 06:30 04/30/17 06:30 PT 16.6 SECONDS (9.4-12.5) H 04/28/17 14:05 INR 1.45 (0.93-1.08) H 04/28/17 14:05 APTT 32.4 Seconds (25.1-36.5) 04/28/17 14:05 - Constitutional Appears: Non-toxic - Head Exam Head Exam: NORMAL INSPECTION - ENT Exam ENT Exam: Mucous Membranes Moist - Neck Exam Neck Exam: absent: Meningismus - Respiratory Exam Respiratory Exam: Decreased Breath Sounds Additional comments: right sided port-a-cath site intact and clean - Cardiovascular Exam Cardiovascular Exam: +S1, +S2 - GI/Abdominal Exam GI & Abdominal Exam: Soft. absent: Tenderness Assessment and Plan - Assessment and Plan (Free Text) Plan: Assessment Systemic Inflammatory Response Syndrome with fever probably related to her colonic malignancy with liver metastases R/O sepsis but so far no evidence identified endometriosis uterine fibroids S/P removal Plan blood cx are negative so far, follow up urine cx; if cx continue to be negative , may d/c antibiotics by tomorrow will monitor clinically overall prognosis is poor
--- NOTE | 2017-04-30 17:38 | CP.PCM.PN ---
<Cathi Meade - Last Filed: 04/30/17 17:39> Subjective - Date & Time of Evaluation Date of Evaluation: 04/30/17 Time of Evaluation: 10:10 - Subjective Subjective: Seen and examined at the bedside earlier today, chart reviewed. Patient had some abdominal pain around 2 AM last night, patient thinks that was contributed to multiple people examining her abdomen. The pain has improved but still notes some discomfort. Tolerating oral intake, denies nausea, vomiting, fever or chills. Having formed stools. No reports of overt GI bleed. Objective - Vital Signs/Intake and Output Vital Signs (last 24 hours): Temp Pulse Resp BP Pulse Ox 99.3 F 97 H 20 125/80 99 04/30/17 09:12 04/30/17 09:12 04/30/17 09:12 04/30/17 09:12 04/30/17 09:12 Intake and Output: 04/30/17 04/30/17 06:59 18:59 Intake Total 2820 725 Balance 2820 725 - Medications Medications: Current Medications Acetaminophen (Tylenol 325mg Tab) 650 mg PO Q4H PRN PRN Reason: Pain, Mild (1-3) Sodium Chloride (Sodium Chloride 0.9%) 1,000 mls @ 150 mls/hr IV .Q6H40M [facility] Last Admin: 04/30/17 17:10 Dose: 150 mls/hr Piperacillin Sod/Tazobactam Sod (Zosyn 3.375 In Ns 100ml) 100 mls @ 200 mls/hr IVPB Q6 VAL[facility]INO PRN Reason: Protocol Last Admin: 04/30/17 17:11 Dose: 200 mls/hr Pantoprazole Sodium (Protonix Ec Tab) 40 mg PO 0600 [facility] Last Admin: 04/30/17 06:17 Dose: 40 mg Sucralfate (Carafate Oral Susp) 1 gm PO 0600,1600 [facility] Last Admin: 04/30/17 17:10 Dose: 1 gm Tramadol HCl (Ultram) 50 mg PO Q8 PRN PRN Reason: Pain, moderate (4-7) Last Admin: 04/30/17 02:13 Dose: 50 mg Ursodiol (Actigall) 300 mg PO DAILY [facility] Last Admin: 04/30/17 09:19 Dose: 300 mg - Labs Labs: 04/30/17 06:30 04/30/17 06:30 PT 16.6 SECONDS (9.4-12.5) H 04/28/17 14:05 INR 1.45 (0.93-1.08) H 04/28/17 14:05 APTT 32.4 Seconds (25.1-36.5) 04/28/17 14:05 - Constitutional Appears: No Acute Distress - Eye Exam Eye Exam: Normal appearance. absent: Scleral icterus - ENT Exam ENT Exam: Mucous Membranes Moist - Neck Exam Neck Exam: Normal Inspection - Respiratory Exam Respiratory Exam: Clear to Ausculation Bilateral, NORMAL BREATHING PATTERN. absent: Respiratory Distress - Cardiovascular Exam Cardiovascular Exam: +S1, +S2 - GI/Abdominal Exam GI & Abdominal Exam: Soft, Tenderness (mild tenderness to right quadrant, no rebound or guarding.), Normal Bowel Sounds. absent: Guarding, Rebound - Extremities Exam Extremities Exam: absent: Calf Tenderness, Pedal Edema - Neurological Exam Neurological Exam: Alert, Awake, Oriented x3 Assessment and Plan - Assessment and Plan (Free Text) Assessment: Assessment: Abdominal pain, rule out cholecystitis versus Cholelithiasis, last abdominal ultrasound was 06/2016 did show gallstones no inflammation and the CBD measured 5 mm Colon cancer with metastasis liver and new metastases to bone and peritoneum, presently on chemotherapy Leukocytosis/H/o Fever, r/o port infection Anemia Elevated LFTs may be secondary to liver metastasis Plan: Diet as tolerated Trend LFTs Continue PPI on IV antibiotic request for HIDA scan Oncology, ID follow-up Plan discussed with patient. Seen and discussed with Dr. Turk. <Joi Turk V - Last Filed: 05/01/17 00:58> Objective - Vital Signs/Intake and Output Vital Signs (last 24 hours): Temp Pulse Resp BP Pulse Ox 98 F 91 H 18 120/80 98 04/30/17 16:00 04/30/17 16:00 04/30/17 16:00 04/30/17 16:00 04/30/17 16:00 Intake and Output: 04/30/17 05/01/17 18:59 06:59 Intake Total 725 1020 Balance 725 1020 - Medications Medications: Current Medications Acetaminophen (Tylenol 325mg Tab) 650 mg PO Q4H PRN PRN Reason: Pain, Mild (1-3) Sodium Chloride (Sodium Chloride 0.9%) 1,000 mls @ 150 mls/hr IV .Q6H40M [facility] Last Admin: 04/30/17 21:47 Dose: 150 mls/hr Piperacillin Sod/Tazobactam Sod (Zosyn 3.375 In Ns 100ml) 100 mls @ 200 mls/hr IVPB Q6 VALENTINO PRN Reason: Protocol Last Admin: 04/30/17 23:36 Dose: 200 mls/hr Pantoprazole Sodium (Protonix Ec Tab) 40 mg PO 0600 [facility] Last Admin: 04/30/17 06:17 Dose: 40 mg Sucralfate (Carafate Oral Susp) 1 gm PO 0600,1600 [facility] Last Admin: 04/30/17 17:10 Dose: 1 gm Tramadol HCl (Ultram) 50 mg PO Q8 PRN PRN Reason: Pain, moderate (4-7) Last Admin: 04/30/17 21:48 Dose: 50 mg Ursodiol (Actigall) 300 mg PO DAILY [facility] Last Admin: 04/30/17 09:19 Dose: 300 mg - Labs Labs: 04/30/17 06:30 04/30/17 06:30 PT 16.6 SECONDS (9.4-12.5) H 04/28/17 14:05 INR 1.45 (0.93-1.08) H 04/28/17 14:05 APTT 32.4 Seconds (25.1-36.5) 04/28/17 14:05 Attending/Attestation - Attestation I have personally seen and examined this patient.: Yes I have fully participated in the care of the patient.: Yes I have reviewed all pertinent clinical information, including history, physical exam and plan: Yes Notes (Text): This is an addendum to GI progress report dictated by Cathi Meade APN.The patient was seen and examined earlier. Medical records, lab studies, imagings were reviewed. Last 24 hours events reviewed. Agreed with the above treatment plan as outlined in Cathi Meade APN's notes the with the addition of the following Patient still complains of discomfort in the right upper quadrant area HIDA scan requested and was reviewed Visualized gallbladder Continue antibiotics as per ID metastatic colon carcinoma 05/01/17 00:56
--- NOTE | 2017-05-01 04:04 | PN ---
DATE: 04/30/[address] [facility] visit on the medical floor. For Dr. Pretty. SUBJECTIVE: The patient is a 61-year-old female, seen lying awake in bed, known to suffer from stage IV metastatic colorectal CA with primary tumor in the right colon with documented metastasis to liver, lung, retroperitoneum, treated as per Dr. Pretty's protocol with FOLFIRI with Avastin. She also suffers from hypertension, GERD. She is now admitted for severe abdominal pain, with the patient now resting comfortably reporting that her pain is now improved with consultations with Gastrointestinal, Dr. Turk and Dr. Stokes, surgeon as indicated. With this, the patient is now noted to have a drop in her hemoglobin, probably after rehydration. Her white blood cell count has also significantly improved after antibiotics were begun by Dr. Rowley. Her hemoglobin on admission was 11.0, two days ago; 9.4 yesterday; it was 8.3 today, we will type and cross for 2 units of packed red blood cells and hold with conservation for transfusion as indicated. Her procalcitonin level on admission was 0.6 with a biliary HIDA scan done earlier today showing no evidence of acute cholecystitis, cystic duct patent, markedly abnormal accumulation of radionuclide in liver consistent with hepatic metastatic disease. OBJECTIVE/PHYSICAL EXAMINATION VITAL SIGNS: Temperature 98, pulse 91, respirations 18, blood pressure 120/80, and pulse oximetry 98%. HEENT: Unremarkable. NECK: Supple. HEART: Tachy rate, regular rhythm. LUNGS: Clear. ABDOMEN: Minimally distended, nontender. EXTREMITIES: No edema. SKIN: Warm and dry. NEUROLOGIC: Awake, alert and oriented x3. The patient's labs were done, white blood cell count of 12.1 down from 24.4 on admission with a hemoglobin of 8.3 down from 11.0 on admission with a platelet count of 222,000. Her chem metabolic panel was within normal range today with an AST of 76 down from 99 yesterday, otherwise normal chem metabolic panel. The patient had influenza type A and B testing that was negative. The patient's HIDA scan is as above. ASSESSMENT: For this patient is that of systemic inflammatory response syndrome with fever, probably related to colonic malignancy with liver metastasis with history of endometriosis, stage IV metastatic colorectal CA with liver metastases, leukocytosis, improved, also anemia of chronic disease. PLAN: For this patient after conversation with Dr. Pretty is to continue present medical regimen as per consultants recommendations. We will monitor clinically and with labs, with the patient being typed and crossed for 2 units of packed red blood cells and on hold. She is also recommended to continue with oxygen, 2 liters nasal cannula humidified, with the prognosis for this patient guarded. Mark Dennis MD
[2017-05-01] MEDS: Piperacillin/Tazobact 3.375 gm 100 ML IVPB SCH ×2 (05:56→11:16)
[2017-05-01] MEDS: Sucralfate 1 gm/10 ml Oral Susp UD PO SCH ×2 (05:57→17:22)
[2017-05-01] MEDS: Pantoprazole 40 mg EC Tab PO SCH (05:57)
[2017-05-01 07:00] LABS: BASO # 0.06 K/mm3 (0.0-2.0); BASO % 0.5 % (0.0-3.0); EOS # 0.1 (0.0-0.7); EOS % 0.6 % (1.5-5.0); GRAN # 8.48 (1.4-6.5); GRAN % 75.3 % (50.0-68.0); HEMOGLOBIN 8.6 g/dL (12.0-16.0); LYMPH # 1.3 (1.2-3.4); LYMPH % 11.2 % (22.0-35.0); MEAN CELL VOLUME 83.2 fl (80.0-105.0); MEAN CORPUSCULAR HEMOGLOBIN 26.2 pg (25.0-35.0); MEAN CORPUSCULAR HGB CONC 31.5 g/dl (31.0-37.0); MEAN PLATELET VOLUME 8.7 fl (7.0-11.0); MONO # 1.4 (0.1-0.6); MONO % 12.4 % (1.0-6.0); RBC 3.28 10^6/uL (3.5-6.1); RED CELL DISTRIBUTION WIDTH 19.4 % (11.5-14.5); WHITE BLOOD COUNT 11.3 10^3/ul (4.5-11.0)
[2017-05-01 07:31] LABS: ALB/GLOB RATIO 0.8 (1.1-1.8); ALBUMIN 2.8 g/dL (3.0-4.8); ALT/SGPT 42 U/L (7-56); AST/SGOT 69 U/L (14-36); BLOOD UREA NITROGEN 4 mg/dL (7-21); CALCIUM 7.6 mg/dL (8.4-10.5); GFR AFRICAN-AMERICAN > 60; GFR NON-AFRICAN AMERICAN > 60
[2017-05-01] MEDS: Sodium Chloride 0.9% 1,000 ML IV SCH (09:23)
--- NOTE | 2017-05-01 11:29 | CP.PCM.PN ---
<Cathi Meade - Last Filed: 05/01/17 11:27> Subjective - Date & Time of Evaluation Date of Evaluation: 05/01/17 Time of Evaluation: 09:40 - Subjective Subjective: Seen and examined at the bedside earlier this morning, patient with no acute overnight events. When for HIDA scan which was negative. Denies nausea, vomiting, no current abdominal pain but did have some pain late last night which is now resolved. Having formed BMs no report of melena bright red blood per rectum. Tolerating oral intake. Objective - Vital Signs/Intake and Output Vital Signs (last 24 hours): Temp Pulse Resp BP Pulse Ox 98.7 F 89 18 115/65 98 05/01/17 00:00 05/01/17 00:00 05/01/17 00:00 05/01/17 00:00 05/01/17 00:00 Intake and Output: 05/01/17 05/01/17 06:59 18:59 Intake Total 2820 Balance 2820 - Medications Medications: Current Medications Acetaminophen (Tylenol 325mg Tab) 650 mg PO Q4H PRN PRN Reason: Pain, Mild (1-3) Sodium Chloride (Sodium Chloride 0.9%) 1,000 mls @ 150 mls/hr IV .Q6H40M [facility] Last Admin: 05/01/17 09:23 Dose: 150 mls/hr Piperacillin Sod/Tazobactam Sod (Zosyn 3.375 In Ns 100ml) 100 mls @ 200 mls/hr IVPB Q6 VAL[facility]INO PRN Reason: Protocol Last Admin: 05/01/17 05:56 Dose: 200 mls/hr Pantoprazole Sodium (Protonix Ec Tab) 40 mg PO 0600 [facility] Last Admin: 05/01/17 05:57 Dose: 40 mg Sucralfate (Carafate Oral Susp) 1 gm PO 0600,1600 [facility] Last Admin: 05/01/17 05:57 Dose: 1 gm Tramadol HCl (Ultram) 50 mg PO Q8 PRN PRN Reason: Pain, moderate (4-7) Last Admin: 04/30/17 21:48 Dose: 50 mg Ursodiol (Actigall) 300 mg PO DAILY [facility] Last Admin: 05/01/17 09:22 Dose: 300 mg - Labs Labs: 05/01/17 06:30 05/01/17 06:30 PT 16.6 SECONDS (9.4-12.5) H 04/28/17 14:05 INR 1.45 (0.93-1.08) H 04/28/17 14:05 APTT 32.4 Seconds (25.1-36.5) 04/28/17 14:05 - Constitutional Appears: No Acute Distress - Eye Exam Eye Exam: Normal appearance - ENT Exam ENT Exam: Mucous Membranes Moist - Respiratory Exam Respiratory Exam: NORMAL BREATHING PATTERN. absent: Respiratory Distress - Cardiovascular Exam Cardiovascular Exam: +S1, +S2 - GI/Abdominal Exam GI & Abdominal Exam: Distended, Soft, Normal Bowel Sounds. absent: Guarding, Tenderness, Rebound - Extremities Exam Extremities Exam: absent: Calf Tenderness, Pedal Edema - Neurological Exam Neurological Exam: Alert, Awake, Oriented x3 Assessment and Plan - Assessment and Plan (Free Text) Assessment: Assessment: Improving, Abdominal pain Cholelithiasis, last abdominal ultrasound was 06/2016 did show gallstones no inflammation and the CBD measured 5 mm, HIDA negative for cholecystitis Colon cancer with metastasis liver and new metastases to bone and peritoneum, presently on chemotherapy Leukocytosis/H/o Fever, r/o port infection Anemia Elevated LFTs may be secondary to liver metastasis Plan: Diet as tolerated Trend LFTs Continue PPI on IV antibiotic On Actigall Oncology, ID follow-up Seen and discussed with Dr. Turk. <Joi Turk V - Last Filed: 05/01/17 20:17> Objective - Vital Signs/Intake and Output Vital Signs (last 24 hours): Temp Pulse Resp BP Pulse Ox 98.7 F 92 H 20 126/72 98 05/01/17 18:06 05/01/17 18:06 05/01/17 18:06 05/01/17 18:06 05/01/17 00:00 Intake and Output: 05/01/17 05/02/17 18:59 06:59 Intake Total 10 Balance 10 - Medications Medications: Current Medications Acetaminophen (Tylenol 325mg Tab) 650 mg PO Q4H PRN PRN Reason: Pain, Mild (1-3) Cefpodoxime Proxetil (Vantin) 200 mg PO Q12 [facility]INO PRN Reason: Protocol Metronidazole (Flagyl) 500 mg PO TID [facility]INO PRN Reason: Protocol Pantoprazole Sodium (Protonix Ec Tab) 40 mg PO 0600 [facility] Last Admin: 05/01/17 05:57 Dose: 40 mg Sucralfate (Carafate Oral Susp) 1 gm PO 0600,1600 [facility] Last Admin: 05/01/17 17:22 Dose: 1 gm Tramadol HCl (Ultram) 50 mg PO Q8 PRN PRN Reason: Pain, moderate (4-7) Last Admin: 04/30/17 21:48 Dose: 50 mg Ursodiol (Actigall) 300 mg PO DAILY [facility] Last Admin: 05/01/17 09:22 Dose: 300 mg - Labs Labs: 05/01/17 06:30 05/01/17 06:30 PT 16.6 SECONDS (9.4-12.5) H 04/28/17 14:05 INR 1.45 (0.93-1.08) H 04/28/17 14:05 APTT 32.4 Seconds (25.1-36.5) 04/28/17 14:05 Attending/Attestation - Attestation I have personally seen and examined this patient.: Yes I have fully participated in the care of the patient.: Yes I have reviewed all pertinent clinical information, including history, physical exam and plan: Yes Notes (Text): This is an addendum to GI progress report dictated by Cathi Meade APN.The patient was seen and examined earlier. Medical records, lab studies, imagings were reviewed. Last 24 hours events reviewed. Agreed with the above treatment plan as outlined in Cathi Meade APN's notes the with the addition of the following on examination abdomen soft mild tenderness in right upper quadrant. Significant elevation of WBC count improved on antibiotics she was discontinued earlier today Clinically patient did have right upper quadrant and epigastric discomfort with a very high white cell count more suggestive of cholecystitis. Her HIDA scan was negative which was done after 2 days . The likely possibility is cystic duct obstruction awhich got relieved. I did discuss with Dr Pretty. Patient would benefit from completing antibiotic course And will discuss with ID 05/01/17 20:13
--- NOTE | 2017-05-01 12:22 | CP.PCM.PN ---
Subjective - Date & Time of Evaluation Date of Evaluation: 05/01/17 Time of Evaluation: 11:10 - Subjective Subjective: Comfortable, no more abdominal pain, no fevers overnight. Objective - Vital Signs/Intake and Output Vital Signs (last 24 hours): Temp Pulse Resp BP Pulse Ox 98.7 F 89 18 115/65 98 05/01/17 00:00 05/01/17 00:00 05/01/17 00:00 05/01/17 00:00 05/01/17 00:00 Intake and Output: 05/01/17 05/01/17 06:59 18:59 Intake Total 2820 Balance 2820 - Medications Medications: Current Medications Acetaminophen (Tylenol 325mg Tab) 650 mg PO Q4H PRN PRN Reason: Pain, Mild (1-3) Sodium Chloride (Sodium Chloride 0.9%) 1,000 mls @ 150 mls/hr IV .Q6H40M [facility] Last Admin: 05/01/17 09:23 Dose: 150 mls/hr Piperacillin Sod/Tazobactam Sod (Zosyn 3.375 In Ns 100ml) 100 mls @ 200 mls/hr IVPB Q6 VALENTINO PRN Reason: Protocol Last Admin: 05/01/17 05:56 Dose: 200 mls/hr Pantoprazole Sodium (Protonix Ec Tab) 40 mg PO 0600 [facility] Last Admin: 05/01/17 05:57 Dose: 40 mg Sucralfate (Carafate Oral Susp) 1 gm PO 0600,1600 [facility] Last Admin: 05/01/17 05:57 Dose: 1 gm Tramadol HCl (Ultram) 50 mg PO Q8 PRN PRN Reason: Pain, moderate (4-7) Last Admin: 04/30/17 21:48 Dose: 50 mg Ursodiol (Actigall) 300 mg PO DAILY [facility] Last Admin: 05/01/17 09:22 Dose: 300 mg - Labs Labs: 05/01/17 06:30 05/01/17 06:30 PT 16.6 SECONDS (9.4-12.5) H 04/28/17 14:05 INR 1.45 (0.93-1.08) H 04/28/17 14:05 APTT 32.4 Seconds (25.1-36.5) 04/28/17 14:05 - Constitutional Appears: Non-toxic, Chronically Ill - Head Exam Head Exam: NORMAL INSPECTION - ENT Exam ENT Exam: Mucous Membranes Moist - Neck Exam Neck Exam: absent: Lymphadenopathy, Meningismus - Respiratory Exam Respiratory Exam: Decreased Breath Sounds Additional comments: right anterior chest wall port-a-cath in place - Cardiovascular Exam Cardiovascular Exam: +S1, +S2 - GI/Abdominal Exam GI & Abdominal Exam: Soft. absent: Tenderness Assessment and Plan - Assessment and Plan (Free Text) Plan: Assessment Systemic Inflammatory Response Syndrome with fever probably related to her colonic malignancy with liver metastases with no evidence of infection identified endometriosis uterine fibroids S/P removal Plan blood cx are negative as well as urine cx; will d/c antibiotics and observe will continue to monitor clinically overall prognosis is poor
[2017-05-01] MEDS ORDERED: DiphenhydrAMINE 50 mg/ml Inj IVP ONE (16:00)
[2017-05-01] MEDS: Cefpodoxime (Vantin) 200 mg Tab PO SCH (21:23)
--- NOTE | 2017-05-02 04:35 | PN ---
DATE: LOCATION: The patient is in room 369, bed 2. PROBLEMS: This is a 61-year-old female with stage IV metastatic colorectal malignancy, currently on systemic chemotherapy with FOLFIRI with Avastin, getting it every 3 weeks, was unable to tolerate every 2 weeks, so has been getting it every three weeks, last treatment was more than three weeks ago, was admitted through the office with new onset of acute abdominal pain, diffuse abdominal pain, cramps, nausea, emesis and diarrhea, unclear as to what the cause of it was. Blood work in the office was showing an elevated white count of 24,000. The patient had diffuse abdominal pain without any specific acute abdominal findings. CAT scan of the abdomen done through the emergency room showed pericholecystic fluid and changes in the liver in addition to the metastatic disease that has been previously documented in the liver, in the root of the mesentery, in the retroperitoneal area as well . The patient has known documented metastasis to the bone as well in addition to small lesions in the lung. The patient has been on ongoing therapy for the last 18 months. The patient is being assessed for switching over to a new drug called Stivarga when she was admitted to the hospital. Working diagnosis at the time of admission was that we were dealing with some form of sepsis in the intraabdominal area and it looks like the patient may have had cholecystitis and things have gotten better even though the HIDA scan was negative as the patient could have passed stone and symptoms could have improved negative scan. As per my discussion with GI, we should treat the patient like her having had an acute cholecystitis with appropriate antibiotics. SUBJECTIVE: The patient feels comfortable today and no further abdominal pains, fever, or sweats. No nausea, no vomiting, and bowel movements have normalized. PHYSICAL EXAMINATION GENERAL: The patient is awake, alert and oriented. She has been walking in the bedroom and she has also been walking outside route to the nurses station. The patient is examined at the bedside in the chair. VITAL SIGNS: T-max is 98.4, pulse is 89, respirations 18, blood pressure is 115/65, pulse oximetry is 98% on room air. HEENT: Head is normocephalic, atraumatic. Conjunctivae pale. Sclerae are anicteric. Pupils are equally reactive to light and accommodation. Examination of the oropharynx reveals no oropharyngeal lesions. Tongue is moist. No ulcerations are noted. NECK: Supple. There is no adenopathy. No jugular venous distention noted. LUNGS: Clear to percussion and auscultation. HEART: Examination of the heart reveals PMI to be in the fifth intercostal space inside the midclavicular line. S1 and S2 are normal. No gallop or murmur is heard. ABDOMEN: Soft and protuberant. Liver and spleen are not palpable. There are no other palpable masses. There is no rebound, rigidity, or guarding noted. EXTREMITIES: Reveal no cyanosis, clubbing, or edema. The patient has a port in the right chest wall infraclavicularly, site appears to be okay and the port is intact. NEUROLOGIC: Reveals no focal deficits. Plantars are flexors. /RECTAL: Deferred. LYMPH: Examination for adenopathy in the neck, axilla, and groin fails to reveal any adenopathy. MEDICATIONS: The patient's medications were reviewed. She is currently on the following medicines. She is on IV fluids at 150 mL per hour, 650 mg of Tylenol q.4 hours p.r.n. She is on Zosyn 3.375 IV piggyback q.6 hours, pantoprazole 40 mg p.o. daily, sucralfate 1 gm p.o. b.i.d., tramadol 50 mg q.8 hours p.r.n., Ursodiol 300 mg p.o. daily. LABORATORY DATA: Reveals a white count of 11.3, hemoglobin 8.6, hematocrit 27.3, and platelet count 229,000. Sodium is 135, K is 3.8, chloride is 107, CO2 is 20, BUN is 5, creatinine is 0.5, blood sugar is 96, PT and INR within normal limits. ASSESSMENT, NOTES AND PLAN: I had a detailed discussion with the patient, spoke to Dr. Rowley, spoke to Dr. Turk, coal mill operator on the case. Even though the blood cultures are negative, based on the review of the scans, even though the HIDA scan is negative, clinically the patient white count was elevated, is coming down nicely with IV antibiotics. The patient had clinically cholecystitis which is abating with IV antibiotics since she came in. We are going switch over from IV antibiotics to p.o. Vantin 200 mg b.i.d., Flagyl 500 mg p.o. q.8 hours, IV fluids are going to be discontinued. If the patient's hemoglobin and hematocrit are dropped, we will plan on giving the two units of blood in preparation for the chemotherapy. I had a detailed discussion with the patient regarding the treatment plan, spoke to Dr. Turk, spoke to Dr. Rowley as well. Time spent with the patient about 80 minutes in collating all the facts, going through all the labs, talking to the different attending, speaking to the nurse, and documenting it on the chart. Time spent more than 80 minutes, please make a note that this is a complex patient with multiple comorbid medical issues to medically necessary and appropriate visit. Thalia Pretty MD
[2017-05-02] MEDS: Sucralfate 1 gm/10 ml Oral Susp UD PO SCH ×2 (05:36→16:41)
[2017-05-02] MEDS: Pantoprazole 40 mg EC Tab PO SCH (05:36)
[2017-05-02 07:03] LABS: ALBUMIN 3.2 g/dL (3.0-4.8); BLOOD UREA NITROGEN 6 mg/dL (7-21); CALCIUM 8.4 mg/dL (8.4-10.5); GFR AFRICAN-AMERICAN > 60; GFR NON-AFRICAN AMERICAN > 60
[2017-05-02 07:04] LABS: ALB/GLOB RATIO 0.9 (1.1-1.8); ALT/SGPT 36 U/L (7-56); AST/SGOT 56 U/L (14-36)
[2017-05-02 07:34] LABS: HEMOGLOBIN 10.9 g/dL (12.0-16.0); RBC 3.98 10^6/uL (3.5-6.1); WHITE BLOOD COUNT 12.3 10^3/ul (4.5-11.0)
[2017-05-02 07:35] LABS: BASO # 0.03 K/mm3 (0.0-2.0); BASO % 0.2 % (0.0-3.0); EOS % 0.1 % (1.5-5.0); GRAN # 10.37 (1.4-6.5); GRAN % 84.3 % (50.0-68.0); LYMPH # 0.9 (1.2-3.4); MEAN CELL VOLUME 82.4 fl (80.0-105.0); MEAN CORPUSCULAR HEMOGLOBIN 27.4 pg (25.0-35.0); MEAN CORPUSCULAR HGB CONC 33.2 g/dl (31.0-37.0); MEAN PLATELET VOLUME 8.8 fl (7.0-11.0); MONO % 8.4 % (1.0-6.0); RED CELL DISTRIBUTION WIDTH 18.7 % (11.5-14.5)
[2017-05-02] MEDS: Cefpodoxime (Vantin) 200 mg Tab PO SCH ×2 (09:06→22:25)
--- NOTE | 2017-05-02 14:19 | PN ---
DATE: Consult is for Dr. Turk, Dr. Stover is covering. SUBJECTIVE: The patient is lying in bed comfortable. She has occasional mild left-sided abdominal pain. She denies any nausea, vomiting. She denies any fevers or chills. PHYSICAL EXAMINATION: VITAL SIGNS: Include temperature of 97.3, blood pressure 130/81, heart rate of 82. HEENT: Reveal sclerae to be white. Conjunctivae pink. NECK: Supple. CHEST: Reveal lungs to be clear. HEART: Reveals regular rate and rhythm. ABDOMEN: Soft, nontender. EXTREMITIES: Show no edema. LABORATORY DATA: Reveal white blood cell count 12.3, hemoglobin 10.9. Chemistries reveal AST 56, ALT 36, alkaline phosphatase of 241. Blood cultures and urine cultures were negative. IMPRESSION: 1. A 61-year-old female with a history of colon cancer with known liver metastasis with elevated liver enzymes. 2. Systemic inflammatory response syndrome. 3. Cholelithiasis without evidence of cholecystitis. RECOMMENDATIONS: 1. Continue supportive care. 2. Palliative chemotherapy as per Oncology once her SIRS resolves. Her long-term prognosis is poor. Mars Stover MD
--- NOTE | 2017-05-02 17:56 | PN ---
DATE: 05/02/2017 SUBJECTIVE: The patient is in bed, in no acute distress, nontoxic. PHYSICAL EXAMINATION: VITAL SIGNS: The patient's temperature is 97, blood pressure is 130/80 and respiratory rate of 20. HEENT: Unremarkable. NECK: Supple. LUNGS: Decreased breath sounds. HEART: Normal S1 and S2. ABDOMEN: Soft. LABORATORY DATA: Reveals the patient's white count of 12,300, hemoglobin of 10 and platelets of 259. Chemistries reveals a BUN of 6, creatinine of 0.4 and alkaline phosphatase is 241. Urinalysis is noted. Serology is negative for flu. Microbiology reveals the blood cultures are negative. ASSESSMENT AND PLAN: This is a 61-year-old female, seen earlier today, much improved with systemic inflammatory response syndrome. The fever probably is secondary to her colonic malignancy with liver metastases. No evidence of infection. The patient does have a history of also endometriosis and uterine fibroid, status post removal. Off of antibiotics intravenously and currently on p.o. Flagyl started by Dr. Pretty yesterday and p.o. cefpodoxime started by Dr. Pretty yesterday, complete therapy. Review of the vitals reveals the patient did have a fever of 101.5 and isolated fevers, which actually speaks about metastatic liver fever. We will follow with you. Dorian Solis MD
[2017-05-02] MEDS ORDERED: Oxycodone/Acetaminophen 5/325 mg Tab PO STA (23:45)
--- NOTE | 2017-05-02 23:45 | CP.PCM.PN ---
Subjective - Date & Time of Evaluation Date of Evaluation: 05/02/17 Time of Evaluation: 23:45 - Subjective Subjective: Patient was seen when she was in DAY room on [facility]. Patient complained of abdominal pain, diffuse pain. Has no other complaints now. Is on Tramodol for pain which she received at 22:24 PM. Still having pain. Pertinent medical record was reviewed. This 61 year old woman was admitted with diffuse abdominal cramps , left hip pain. Has PMH of stage Iv colon cancer, HTN, GERD, metastatic disease, port-a-cath insertion. Objective - Vital Signs/Intake and Output Vital Signs (last 24 hours): Temp Pulse Resp BP Pulse Ox 97.7 F 90 20 141/83 99 05/02/17 16:00 05/02/17 16:00 05/02/17 16:00 05/02/17 16:00 05/02/17 16:00 - Medications Medications: Current Medications Acetaminophen (Tylenol 325mg Tab) 650 mg PO Q4H PRN PRN Reason: Pain, Mild (1-3) Cefpodoxime Proxetil (Vantin) 200 mg PO Q12 [facility]INO PRN Reason: Protocol Last Admin: 05/02/17 22:25 Dose: 200 mg Metronidazole (Flagyl) 500 mg PO TID VALENTINO PRN Reason: Protocol Last Admin: 05/02/17 18:26 Dose: 500 mg Pantoprazole Sodium (Protonix Ec Tab) 40 mg PO 0600 [facility] Last Admin: 05/02/17 05:36 Dose: 40 mg Sucralfate (Carafate Oral Susp) 1 gm PO 0600,1600 [facility] Last Admin: 05/02/17 16:41 Dose: 1 gm Tramadol HCl (Ultram) 50 mg PO Q8 PRN PRN Reason: Pain, moderate (4-7) Last Admin: 05/02/17 22:24 Dose: 50 mg Ursodiol (Actigall) 300 mg PO DAILY [facility] Last Admin: 05/02/17 09:06 Dose: 300 mg - Labs Labs: 05/02/17 06:00 05/02/17 06:00 PT 16.6 SECONDS (9.4-12.5) H 04/28/17 14:05 INR 1.45 (0.93-1.08) H 04/28/17 14:05 APTT 32.4 Seconds (25.1-36.5) 04/28/17 14:05 Micro Results 04/28/17 14:29 Blood-Venous Blood Culture - Preliminary NO GROWTH AFTER 4 DAYS 04/28/17 14:05 Blood-Venous Blood Culture - Preliminary NO GROWTH AFTER 4 DAYS 04/29/17 07:18 Blood-Venous Blood Culture - Preliminary NO GROWTH AFTER 3 DAYS 04/28/17 14:00 Urine Urine Culture - Final No Growth (<1,000 CFU/ML) Most Recent Lab Values WBC 12.3 10^3/ul (4.5-11.0) H 05/02/17 06:00 RBC 3.98 10^6/uL (3.5-6.1) 05/02/17 06:00 Hgb 10.9 g/dL (12.0-16.0) L D 05/02/17 06:00 Hct 32.8 % (36.0-48.0) L 05/02/17 06:00 MCV 82.4 fl (80.0-105.0) 05/02/17 06:00 MCH 27.4 pg (25.0-35.0) 05/02/17 06:00 MCHC 33.2 g/dl (31.0-37.0) 05/02/17 06:00 RDW 18.7 % (11.5-14.5) H 05/02/17 06:00 Plt Count 259 10^3/uL (120.0-450.0) 05/02/17 06:00 MPV 8.8 fl (7.0-11.0) 05/02/17 06:00 Gran % 84.3 % (50.0-68.0) H 05/02/17 06:00 Lymph % (Auto) 7.0 % (22.0-35.0) L 05/02/17 06:00 [place] % (Auto) 8.4 % (1.0-6.0) H 05/02/17 06:00 Eos % (Auto) 0.1 % (1.5-5.0) L 05/02/17 06:00 Baso % (Auto) 0.2 % (0.0-3.0) 05/02/17 06:00 Gran # 10.37 (1.4-6.5) H 05/02/17 06:00 Lymph # 0.9 (1.2-3.4) L 05/02/17 06:00 [place] # 1.0 (0.1-0.6) H 05/02/17 06:00 Eos # 0.0 (0.0-0.7) 05/02/17 06:00 Baso # 0.03 K/mm3 (0.0-2.0) 05/02/17 06:00 Neutrophils % (Manual) 82 % (50.0-70.0) H 04/28/17 14:05 Band Neutrophils % 1 % (0-2) 04/28/17 14:05 Lymphocytes % (Manual) 6 % (22.0-35.0) L 04/28/17 14:05 Monocytes % (Manual) 10 % (1.0-6.0) H 04/28/17 14:05 Eosinophils % (Manual) 1 % (0.0-3.0) 04/28/17 14:05 Platelet Evaluation Normal (NORMAL) 04/28/17 14:05 PT 16.6 SECONDS (9.4-12.5) H 04/28/17 14:05 INR 1.45 (0.93-1.08) H 04/28/17 14:05 APTT 32.4 Seconds (25.1-36.5) 04/28/17 14:05 pO2 250 mm/Hg (30-55) H 04/29/17 07:45 VBG pH 7.45 (7.32-7.43) H 04/29/17 07:45 VBG pCO2 34.0 (40-60) L 04/29/17 07:45 VBG HCO3 23.6 mmol/l (21-28) 04/29/17 07:45 VBG Total CO2 24.6 mmol.L (22-28) 04/29/17 07:45 VBG O2 Sat (Calc) 100.2 % (40-65) H 04/29/17 07:45 VBG Base Excess 0.1 mmol/L (0.0-2.0) 04/29/17 07:45 VBG Potassium 3.7 mmol/L (3.6-5.2) 04/29/17 07:45 Sodium 130.0 mmol/L (132-148) L 04/29/17 07:45 Chloride 101.0 mmol/L (98-107) 04/29/17 07:45 Glucose 109 mg/dl (65-105) H 04/29/17 07:45 Lactate 1.2 mmol/L (0.7-2.1) 04/29/17 07:45 FiO2 21.0 % 04/29/17 07:45 Sodium 137 mmol/L (132-148) 05/02/17 06:00 Potassium 4.1 mmol/L (3.6-5.0) 05/02/17 06:00 Chloride 108 mmol/L (98-107) H 05/02/17 06:00 Carbon Dioxide 23 mmol/L (21-33) 05/02/17 06:00 Anion Gap 11 (10-20) 05/02/17 06:00 BUN 6 mg/dL (7-21) L 05/02/17 06:00 Creatinine 0.4 mg/dl (0.7-1.2) L 05/02/17 06:00 Est GFR ( Amer) > 60 05/02/17 06:00 Est GFR (Non-Af Amer) > 60 05/02/17 06:00 Random Glucose 165 mg/dL (70-110) H 05/02/17 06:00 Calcium 8.4 mg/dL (8.4-10.5) 05/02/17 06:00 Total Bilirubin 1.3 mg/dL (0.2-1.3) 05/02/17 06:00 Direct Bilirubin 0.9 mg/dL (0.0-0.4) H 04/29/17 07:30 AST 56 U/L (14-36) H 05/02/17 06:00 ALT 36 U/L (7-56) 05/02/17 06:00 Alkaline Phosphatase 241 U/L (38-126) H 05/02/17 06:00 Lactate Dehydrogenase 1999 U/L (333-699) H 04/28/17 14:05 Total Creatine Kinase 140 U/L (35-230) 04/28/17 14:05 Troponin I < 0.01 ng/mL 04/28/17 14:05 Total Protein 6.9 g/dL (5.8-8.3) 05/02/17 06:00 Albumin 3.2 g/dL (3.0-4.8) 05/02/17 06:00 Globulin 3.7 gm/dL 05/02/17 06:00 Albumin/Globulin Ratio 0.9 (1.1-1.8) L 05/02/17 06:00 Amylase 70 U/L (35-125) 04/28/17 14:05 Lipase 79 U/L (23-300) 04/28/17 14:05 Procalcitonin 0.67 NG/ML (0.19-0.49) H 04/28/17 18:53 Venous Blood Potassium 3.7 mmol/L (3.6-5.2) 04/29/17 07:45 Urine Color Straw (YELLOW) 04/28/17 14:00 Urine Appearance Sl cloudy (CLEAR) 04/28/17 14:00 Urine pH 6.0 (4.7-8.0) 04/28/17 14:00 Ur Specific Clever 1.025 (1.005-1.035) 04/28/17 14:00 Urine Protein 30 mg/dL (<30 mg/dL) H 04/28/17 14:00 Urine Glucose (UA) 100 mg/dL (NEGATIVE) H 04/28/17 14:00 Urine Ketones Trace mg/dL (NEGATIVE) H 04/28/17 14:00 Urine Blood Trace-intact (NEGATIVE) H 04/28/17 14:00 Urine Nitrate Negative (NEGATIVE) 04/28/17 14:00 Urine Bilirubin Small (NEGATIVE) H 04/28/17 14:00 Urine Urobilinogen >=8.0 E.U./dL (<1 E.U./dL) 04/28/17 14:00 Ur Leukocyte Esterase Negative Lauren/uL (NEGATIVE) 04/28/17 14:00 Urine RBC 0 - 2 /hpf (0-2) 04/28/17 14:00 Urine WBC 0 - 2 /hpf (0-6) 04/28/17 14:00 Ur Epithelial Cells 6 - 8 /hpf (0-5) 04/28/17 14:00 Urine Bacteria Trace (NEG) 04/28/17 14:00 Influenza Typ A,B (EIA) Negative for flu a/b (NEGATIVE) 04/29/17 12:10 Blood Type O POSITIVE 05/01/17 06:30 Antibody Screen Negative 05/01/17 06:30 Crossmatch See Detail 05/01/17 06:30 BBK History Checked Patient has bt 05/01/17 06:30 - Constitutional Appears: Well, No Acute Distress - Head Exam Head Exam: ATRAUMATIC, NORMAL INSPECTION, NORMOCEPHALIC Additional comments: Sitting comfortably in a chair. - Eye Exam Eye Exam: Normal appearance - Neck Exam Neck Exam: Normal Inspection - Respiratory Exam Respiratory Exam: NORMAL BREATHING PATTERN - Cardiovascular Exam Cardiovascular Exam: absent: JVD - GI/Abdominal Exam GI & Abdominal Exam: Distended - Rectal Exam Rectal Exam: Deferred - Exam Additional comments: Deferred. - Extremities Exam Extremities Exam: Normal Inspection - Back Exam Back Exam: NORMAL INSPECTION - Neurological Exam Neurological Exam: Alert, Awake, Oriented x3 - Psychiatric Exam Psychiatric exam: Normal Affect, Normal Mood - Skin Skin Exam: Normal Color Assessment and Plan - Assessment and Plan (Free Text) Assessment: Abdominal pain -diffuse. Stage IV colon cancer. HTN. GERD. Metastatic disease. Plan: Percocet I PO now. Continue present management.
[2017-05-03] MEDS: Pantoprazole 40 mg EC Tab PO SCH (06:00)
[2017-05-03] MEDS: Sucralfate 1 gm/10 ml Oral Susp UD PO SCH ×2 (06:00→17:42)
[2017-05-03] MEDS: Cefpodoxime (Vantin) 200 mg Tab PO SCH ×2 (09:11→21:13)
[2017-05-03 11:19] LABS: BASO # 0.04 K/mm3 (0.0-2.0); BASO % 0.2 % (0.0-3.0); EOS % 0.2 % (1.5-5.0); GRAN # 14.03 (1.4-6.5); GRAN % 82.8 % (50.0-68.0); HEMOGLOBIN 11.1 g/dL (12.0-16.0); LYMPH # 0.8 (1.2-3.4); LYMPH % 4.5 % (22.0-35.0); MEAN CELL VOLUME 82.5 fl (80.0-105.0); MEAN CORPUSCULAR HEMOGLOBIN 27.8 pg (25.0-35.0); MEAN CORPUSCULAR HGB CONC 33.6 g/dl (31.0-37.0); MEAN PLATELET VOLUME 8.9 fl (7.0-11.0); MONO # 2.1 (0.1-0.6); MONO % 12.3 % (1.0-6.0); PLATELET COUNT 289 10^3/uL (120.0-450.0); RED CELL DISTRIBUTION WIDTH 19.2 % (11.5-14.5)
[2017-05-03 11:39] LABS: ALB/GLOB RATIO 0.8 (1.1-1.8); ALT/SGPT 44 U/L (7-56); AST/SGOT 87 U/L (14-36); BLOOD UREA NITROGEN 7 mg/dL (7-21); CALCIUM 8.4 mg/dL (8.4-10.5); GFR AFRICAN-AMERICAN > 60; GFR NON-AFRICAN AMERICAN > 60
[2017-05-03 12:26] LABS: LYMPHOCYTE 3 % (22.0-35.0); MONOCYTE 8 % (1.0-6.0); MYELOCYTE 2 %; NEUTROPHIL 87 % (50.0-70.0); PLATELET ESTIMATE NORMAL (NORMAL)
--- NOTE | 2017-05-03 15:40 | CP.PCM.PN ---
Subjective - Date & Time of Evaluation Date of Evaluation: 05/02/17 Time of Evaluation: 17:00 - Subjective Subjective: No acute events over night. tolerating PO just fine. Just some nausea associated with PO abx. ROS: 12 ROs otherwise negative Pain: denies Objective - Vital Signs/Intake and Output Vital Signs (last 24 hours): Temp Pulse Resp BP Pulse Ox 97.9 F 85 20 106/64 97 05/03/17 07:53 05/03/17 07:53 05/03/17 07:53 05/03/17 07:53 05/03/17 07:53 - Medications Medications: Current Medications Acetaminophen (Tylenol 325mg Tab) 650 mg PO Q4H PRN PRN Reason: Pain, Mild (1-3) Cefpodoxime Proxetil (Vantin) 200 mg PO Q12 [facility]INO PRN Reason: Protocol Last Admin: 05/03/17 09:11 Dose: Not Given Metronidazole (Flagyl) 500 mg PO TID VAL[facility]INO PRN Reason: Protocol Last Admin: 05/03/17 14:16 Dose: 500 mg Pantoprazole Sodium (Protonix Ec Tab) 40 mg PO 0600 [facility] Last Admin: 05/03/17 06:00 Dose: 40 mg Sucralfate (Carafate Oral Susp) 1 gm PO 0600,1600 [facility] Last Admin: 05/03/17 06:00 Dose: 1 gm Tramadol HCl (Ultram) 50 mg PO Q8 PRN PRN Reason: Pain, moderate (4-7) Last Admin: 05/03/17 11:26 Dose: 50 mg Ursodiol (Actigall) 300 mg PO DAILY [facility] Last Admin: 05/03/17 09:10 Dose: Not Given - Labs Labs: 05/03/17 11:14 05/03/17 11:14 PT 16.6 SECONDS (9.4-12.5) H 04/28/17 14:05 INR 1.45 (0.93-1.08) H 04/28/17 14:05 APTT 32.4 Seconds (25.1-36.5) 04/28/17 14:05 - Constitutional Appears: Well - Respiratory Exam Respiratory Exam: Clear to Ausculation Bilateral, NORMAL BREATHING PATTERN - Cardiovascular Exam Cardiovascular Exam: REGULAR RHYTHM, +S1, +S2. absent: Murmur - GI/Abdominal Exam GI & Abdominal Exam: Soft, Tenderness Additional comments: slight tenderness with moderate palpitation. Otherwise no tenderness elcited - Skin Skin Exam: absent: Dry Assessment and Plan - Assessment and Plan (Free Text) Assessment: Ms. Busby carrie 61 y/o AA female with stage IV metastatic CRC on systemic FOLFIRI + avastin admitted with abdominal pain setting of cholelithaiassis progression, hepatic and peritioneal mets and SIRS currently on PO antibiotics. Patient tolerating PO intake w/o issue. If continues to be stable with consider d/c tomorrow AM
--- NOTE | 2017-05-03 15:46 | CP.PCM.PN ---
Subjective - Date & Time of Evaluation Date of Evaluation: 05/03/17 Time of Evaluation: 16:00 - Subjective Subjective: patient had mac and cheese yesterday. Noted abdominal pain particularly worse afterwards and over night had pain requiring pain medications. Nausea controlled with zofran. Denies vomiting. and nausea associated with PO abx alone. ROS; 12 ROS otherwise negatrive Pain: denies Objective - Vital Signs/Intake and Output Vital Signs (last 24 hours): Temp Pulse Resp BP Pulse Ox 97.9 F 85 20 106/64 97 05/03/17 07:53 05/03/17 07:53 05/03/17 07:53 05/03/17 07:53 05/03/17 07:53 - Medications Medications: Current Medications Acetaminophen (Tylenol 325mg Tab) 650 mg PO Q4H PRN PRN Reason: Pain, Mild (1-3) Cefpodoxime Proxetil (Vantin) 200 mg PO Q12 [facility]INO PRN Reason: Protocol Last Admin: 05/03/17 09:11 Dose: Not Given Metronidazole (Flagyl) 500 mg PO TID [facility]INO PRN Reason: Protocol Last Admin: 05/03/17 14:16 Dose: 500 mg Pantoprazole Sodium (Protonix Ec Tab) 40 mg PO 0600 [facility] Last Admin: 05/03/17 06:00 Dose: 40 mg Sucralfate (Carafate Oral Susp) 1 gm PO 0600,1600 [facility] Last Admin: 05/03/17 06:00 Dose: 1 gm Tramadol HCl (Ultram) 50 mg PO Q8 PRN PRN Reason: Pain, moderate (4-7) Last Admin: 05/03/17 11:26 Dose: 50 mg Ursodiol (Actigall) 300 mg PO DAILY [facility] Last Admin: 05/03/17 09:10 Dose: Not Given - Labs Labs: 05/03/17 11:14 05/03/17 11:14 PT 16.6 SECONDS (9.4-12.5) H 04/28/17 14:05 INR 1.45 (0.93-1.08) H 04/28/17 14:05 APTT 32.4 Seconds (25.1-36.5) 04/28/17 14:05 - Constitutional Appears: Non-toxic - Head Exam Head Exam: ATRAUMATIC, NORMAL INSPECTION, NORMOCEPHALIC - Eye Exam Eye Exam: Normal appearance - Respiratory Exam Respiratory Exam: Clear to Ausculation Bilateral, NORMAL BREATHING PATTERN - Cardiovascular Exam Cardiovascular Exam: Bradycardia - GI/Abdominal Exam GI & Abdominal Exam: Soft, Tenderness, Normal Bowel Sounds. absent: Guarding, Rigid - Extremities Exam Extremities Exam: Full ROM, Normal Capillary Refill, Normal Inspection. absent : Joint Swelling, Pedal Edema Assessment and Plan - Assessment and Plan (Free Text) Plan: Ms. Busby carrie 61 y/o AA female with stage IV metastatic CRC on systemic FOLFIRI + avastin admitted with abdominal pain setting of cholelithaiassis progression, hepatic and peritioneal mets and SIRS currently on PO antibiotics. Patient now with increased abdominal pain and slightly worsening bili's, hepatic function, and leukocytosis. Will continue to observe. Patient on clear liquid diet. If pain persists will re-consult surgery and consider repeat CT a/ p w/ contrast. patient aware of plan. Akbar Pretty MD Oncology Service
--- NOTE | 2017-05-03 20:55 | CP.PCM.PN ---
Subjective - Date & Time of Evaluation Date of Evaluation: 05/03/17 Time of Evaluation: 20:54 - Subjective Subjective: S:Complains of nausea. Has no other complaints. Medical record was reviewed. O: Last Vital Signs 3 Temp 98.5 F 05/03/17 16:00 Pulse 90 05/03/17 16:00 Resp 20 05/03/17 16:00 BP 135/72 05/03/17 16:00 Pulse Ox 99 05/03/17 16:00 Awake, alert LUNGS:Normal breathing pattern. A:Nausea. P: Zofran 4 mg IV once. Objective - Vital Signs/Intake and Output Vital Signs (last 24 hours): Temp Pulse Resp BP Pulse Ox 98.5 F 90 20 135/72 99 05/03/17 16:00 05/03/17 16:00 05/03/17 16:00 05/03/17 16:00 05/03/17 16:00 - Medications Medications: Current Medications Acetaminophen (Tylenol 325mg Tab) 650 mg PO Q4H PRN PRN Reason: Pain, Mild (1-3) Cefpodoxime Proxetil (Vantin) 200 mg PO Q12 [facility]INO PRN Reason: Protocol Last Admin: 05/03/17 09:11 Dose: Not Given Metronidazole (Flagyl) 500 mg PO TID [facility] PRN Reason: Protocol Last Admin: 05/03/17 17:42 Dose: 500 mg Pantoprazole Sodium (Protonix Ec Tab) 40 mg PO 0600 [facility] Last Admin: 05/03/17 06:00 Dose: 40 mg Sucralfate (Carafate Oral Susp) 1 gm PO 0600,1600 [facility] Last Admin: 05/03/17 17:42 Dose: 1 gm Tramadol HCl (Ultram) 50 mg PO Q8 PRN PRN Reason: Pain, moderate (4-7) Last Admin: 05/03/17 11:26 Dose: 50 mg Ursodiol (Actigall) 300 mg PO DAILY [facility] Last Admin: 05/03/17 09:10 Dose: Not Given - Labs Labs: 05/03/17 11:14 05/03/17 11:14 PT 16.6 SECONDS (9.4-12.5) H 04/28/17 14:05 INR 1.45 (0.93-1.08) H 04/28/17 14:05 APTT 32.4 Seconds (25.1-36.5) 04/28/17 14:05
--- NOTE | 2017-05-04 00:53 | PN ---
DATE: 05/03/2017 SUBJECTIVE: The patient is in bed, in no acute distress. PHYSICAL EXAMINATION VITAL SIGNS: Temperature is 98, blood pressure is 130/70, respiratory rate of 20. HEENT: Unremarkable. NECK: Supple. LUNGS: Have decreased breath sounds. HEART: Normal S1 and S2. ABDOMEN: Soft. LABORATORY DATA: Reveals a white count of 17,000; hemoglobin of 11 and platelets 289. BUN of 7, creatinine of 0.5, procalcitonin 0.67. Urinalysis is noted. Serology for influenza is negative. Microbiology, blood cultures are negative. Urine cultures are negative. Review of orders reveals the patient to be on p.o. Flagyl, p.o. cefpodoxime. ASSESSMENT AND PLAN: This is a 61-year-old female who was seen earlier today with systemic inflammatory response syndrome and liver metastasis with colonic malignancy, endometriosis, uterine fibroids status post removal and the patient is on p.o. cefpodoxime and p.o. Flagyl at this point, afebrile. Dorian Solis MD
[2017-05-04] MEDS: Sucralfate 1 gm/10 ml Oral Susp UD PO SCH ×2 (06:06→17:23)
[2017-05-04] MEDS: Pantoprazole 40 mg EC Tab PO SCH (06:07)
[2017-05-04 08:54] LABS: BASO # 0.04 K/mm3 (0.0-2.0); BASO % 0.2 % (0.0-3.0); EOS % 0.1 % (1.5-5.0); GRAN # 16.02 (1.4-6.5); GRAN % 80.6 % (50.0-68.0); HEMOGLOBIN 11.4 g/dL (12.0-16.0); MEAN CELL VOLUME 83.4 fl (80.0-105.0); MEAN CORPUSCULAR HEMOGLOBIN 27.9 pg (25.0-35.0); MEAN CORPUSCULAR HGB CONC 33.4 g/dl (31.0-37.0); MEAN PLATELET VOLUME 9.1 fl (7.0-11.0); MONO # 2.8 (0.1-0.6); MONO % 14.1 % (1.0-6.0); RBC 4.09 10^6/uL (3.5-6.1); RED CELL DISTRIBUTION WIDTH 19.9 % (11.5-14.5); WHITE BLOOD COUNT 19.9 10^3/ul (4.5-11.0)
[2017-05-04 09:05] LABS: ALB/GLOB RATIO 0.8 (1.1-1.8); ALBUMIN 3.1 g/dL (3.0-4.8); ALT/SGPT 38 U/L (7-56); AST/SGOT 82 U/L (14-36); BLOOD UREA NITROGEN 6 mg/dL (7-21); CALCIUM 8.2 mg/dL (8.4-10.5); GFR AFRICAN-AMERICAN > 60; GFR NON-AFRICAN AMERICAN > 60
--- NOTE | 2017-05-04 09:26 | CP.PCM.PN ---
Subjective - Date & Time of Evaluation Date of Evaluation: 05/04/17 Time of Evaluation: 09:19 - Subjective Subjective: Patient seen and examined at bedside. Patient received Zofran overnight for episode of vomiting. No nausea at this time, abdominal pain remains the same. Patient with decreased appetite. Patient admits to regular bowel movements, last BM yesterday. Objective - Vital Signs/Intake and Output Vital Signs (last 24 hours): Temp Pulse Resp BP Pulse Ox 99.4 F 98 H 20 145/98 H 96 05/04/17 07:51 05/04/17 07:51 05/04/17 07:51 05/04/17 07:51 05/04/17 07:51 Intake and Output: 05/04/17 05/04/17 06:59 18:59 Intake Total 480 Balance 480 - Medications Medications: Current Medications Acetaminophen (Tylenol 325mg Tab) 650 mg PO Q4H PRN PRN Reason: Pain, Mild (1-3) Cefpodoxime Proxetil (Vantin) 200 mg PO Q12 [facility]INO PRN Reason: Protocol Last Admin: 05/03/17 21:13 Dose: 200 mg Metronidazole (Flagyl) 500 mg PO TID [facility] PRN Reason: Protocol Last Admin: 05/03/17 17:42 Dose: 500 mg Pantoprazole Sodium (Protonix Ec Tab) 40 mg PO 0600 [facility] Last Admin: 05/04/17 06:07 Dose: 40 mg Sucralfate (Carafate Oral Susp) 1 gm PO 0600,1600 [facility] Last Admin: 05/04/17 06:06 Dose: 1 gm Tramadol HCl (Ultram) 50 mg PO Q8 PRN PRN Reason: Pain, moderate (4-7) Last Admin: 05/03/17 23:38 Dose: 50 mg Ursodiol (Actigall) 300 mg PO DAILY [facility] Last Admin: 05/03/17 09:10 Dose: Not Given - Labs Labs: 05/04/17 08:00 05/04/17 08:00 PT 16.6 SECONDS (9.4-12.5) H 04/28/17 14:05 INR 1.45 (0.93-1.08) H 04/28/17 14:05 APTT 32.4 Seconds (25.1-36.5) 04/28/17 14:05 - Constitutional Appears: Non-toxic, No Acute Distress - Head Exam Head Exam: ATRAUMATIC, NORMAL INSPECTION, NORMOCEPHALIC - ENT Exam ENT Exam: Mucous Membranes Moist, Normal Exam - Respiratory Exam Respiratory Exam: Clear to Ausculation Bilateral, NORMAL BREATHING PATTERN. absent: Rales, Rhonchi, Wheezes - Cardiovascular Exam Cardiovascular Exam: RRR, +S1, +S2 - GI/Abdominal Exam GI & Abdominal Exam: Soft, Tenderness (Diffuse, no improvement), Normal Bowel Sounds. absent: Guarding, Rebound - Extremities Exam Extremities Exam: Normal Inspection. absent: Pedal Edema - Neurological Exam Neurological Exam: Alert, Awake, Oriented x3 - Psychiatric Exam Psychiatric exam: Normal Affect, Normal Mood - Skin Skin Exam: Intact, Normal Color, Warm Assessment and Plan - Assessment and Plan (Free Text) Plan: 61 y/o female with stage IV metastatic Colorectal cancer on systemic FOLFIRI and Avastin admitted with abdominal pain in the setting of cholelithiasis with progression of hepatic and peritioneal mets. HIDA found to be negative. Patient remains on PO antibiotics as per ID. Leukocytosis mildly worsened from previous day. Bilirubin and LFT's stable at this time with no improvement. Abdominal pain is also consistent with worsening nausea. Will consider CT abdomen/pelvis with contrast if pain and nausea persist. Will also reconsult surgery at this time. IVF to also be started as the patient is not tolerating her liquid diet. Plan discussed with Dr. Pretty. Geovani, PGY-2
[2017-05-04] MEDS: Cefpodoxime (Vantin) 200 mg Tab PO SCH (10:01)
--- NOTE | 2017-05-04 14:53 | CP.PCM.PN ---
<Babak Tripp - Last Filed: 05/04/17 14:50> Subjective - Date & Time of Evaluation Date of Evaluation: 05/04/17 Time of Evaluation: 13:30 - Subjective Subjective: Surgery Progress note. Dr. Stokes Pt seen and examined at bedside at the request of primary team for reevaluation of RUQ pain. Patient reports RUQ pain two days ago which began after she ate mac and cheese. Associated with some nausea. She reports that the pain has since subsided and feels much better currently. Denies F/C. No current N/V/D. No new complaints. Objective - Vital Signs/Intake and Output Vital Signs (last 24 hours): Temp Pulse Resp BP Pulse Ox 99.4 F 98 H 20 145/98 H 96 05/04/17 07:51 05/04/17 07:51 05/04/17 07:51 05/04/17 07:51 05/04/17 07:51 Intake and Output: 05/04/17 05/04/17 06:59 18:59 Intake Total 480 Balance 480 - Medications Medications: Current Medications Acetaminophen (Tylenol 325mg Tab) 650 mg PO Q4H PRN PRN Reason: Pain, Mild (1-3) Sodium Chloride (Sodium Chloride 0.9%) 1,000 mls @ 100 mls/hr IV .Q10H [facility] Pantoprazole Sodium (Protonix Ec Tab) 40 mg PO 0600 [facility] Last Admin: 05/04/17 06:07 Dose: 40 mg Sucralfate (Carafate Oral Susp) 1 gm PO 0600,1600 [facility] Last Admin: 05/04/17 06:06 Dose: 1 gm Tramadol HCl (Ultram) 50 mg PO Q8 PRN PRN Reason: Pain, moderate (4-7) Last Admin: 05/03/17 23:38 Dose: 50 mg Ursodiol (Actigall) 300 mg PO DAILY [facility] Last Admin: 05/04/17 10:01 Dose: 300 mg - Labs Labs: 05/04/17 08:00 05/04/17 08:00 PT 16.6 SECONDS (9.4-12.5) H 04/28/17 14:05 INR 1.45 (0.93-1.08) H 04/28/17 14:05 APTT 32.4 Seconds (25.1-36.5) 04/28/17 14:05 - Constitutional Appears: Non-toxic, No Acute Distress - Head Exam Head Exam: ATRAUMATIC, NORMAL INSPECTION, NORMOCEPHALIC - Eye Exam Eye Exam: EOMI. absent: Scleral icterus - ENT Exam ENT Exam: Mucous Membranes Moist - Respiratory Exam Respiratory Exam: NORMAL BREATHING PATTERN. absent: Accessory Muscle Use, Respiratory Distress - Cardiovascular Exam Cardiovascular Exam: absent: JVD - GI/Abdominal Exam GI & Abdominal Exam: Soft. absent: Distended, Firm, Guarding, Rigid, Tenderness , Rebound Additional comments: No tenderness to palpation. No rebound. No Krishnamurthy's sign - Extremities Exam Extremities Exam: Normal Inspection. absent: Calf Tenderness - Neurological Exam Neurological Exam: Alert, Awake, Oriented x3 - Psychiatric Exam Psychiatric exam: Normal Affect, Normal Mood - Skin Skin Exam: Dry, Intact, Normal Color, Warm Assessment and Plan - Assessment and Plan (Free Text) Assessment: 61yo F with metastatic Ascending Colon CA, not previously operated. Surgery re- consulted for RUQ pain. - HIDA noted: no cystic duct obstruction - Pain likely from metastatic disease. Patient non-tender at this time, tolerating CLD. Plan: - ADAT - Patient states that she would like to have surgery elsewhere in the event surgical intervention was needed - Continue CA treatment as per Oncology team - No plans for surgical intervention at this time - will follow up if any changes occur Further recs as per Dr. Divya Tripp PGY1 surgery pager: [phone] <Michael Stokes - Last Filed: 05/04/17 16:00> Objective - Vital Signs/Intake and Output Vital Signs (last 24 hours): Temp Pulse Resp BP Pulse Ox 99.4 F 98 H 20 145/98 H 96 05/04/17 07:51 05/04/17 07:51 05/04/17 07:51 05/04/17 07:51 05/04/17 07:51 Intake and Output: 05/04/17 05/04/17 06:59 18:59 Intake Total 480 Balance 480 - Medications Medications: Current Medications Acetaminophen (Tylenol 325mg Tab) 650 mg PO Q4H PRN PRN Reason: Pain, Mild (1-3) Sodium Chloride (Sodium Chloride 0.9%) 1,000 mls @ 100 mls/hr IV .Q10H [facility] Pantoprazole Sodium (Protonix Ec Tab) 40 mg PO 0600 [facility] Last Admin: 05/04/17 06:07 Dose: 40 mg Sucralfate (Carafate Oral Susp) 1 gm PO 0600,1600 [facility] Last Admin: 05/04/17 06:06 Dose: 1 gm Tramadol HCl (Ultram) 50 mg PO Q8 PRN PRN Reason: Pain, moderate (4-7) Last Admin: 05/03/17 23:38 Dose: 50 mg Ursodiol (Actigall) 300 mg PO DAILY [facility] Last Admin: 05/04/17 10:01 Dose: 300 mg - Labs Labs: 05/04/17 08:00 05/04/17 08:00 PT 16.6 SECONDS (9.4-12.5) H 04/28/17 14:05 INR 1.45 (0.93-1.08) H 04/28/17 14:05 APTT 32.4 Seconds (25.1-36.5) 04/28/17 14:05 Assessment and Plan - Assessment and Plan (Free Text) Assessment: Patient was seen, evaluated and examined by me. I agree with the assessment and plan as per the resident's note.
--- NOTE | 2017-05-04 16:18 | CP.PCM.PN ---
Subjective - Date & Time of Evaluation Date of Evaluation: 05/04/17 Time of Evaluation: 09:45 - Subjective Subjective: Seen and examined at the bedside earlier today, the patient reports that her abdominal pain has slightly subsided over the weekend it was 7-1/2 over 10 today she rates it between 5-6-1/2 over 10, she still requires when necessary pain medication. Tolerating the clear liquid diet, denies any episodes of diarrhea, no reports of overt GI bleed. She is moving her bowels. Objective - Vital Signs/Intake and Output Vital Signs (last 24 hours): Temp Pulse Resp BP Pulse Ox 99.4 F 98 H 20 145/98 H 96 05/04/17 07:51 05/04/17 07:51 05/04/17 07:51 05/04/17 07:51 05/04/17 07:51 Intake and Output: 05/04/17 05/04/17 06:59 18:59 Intake Total 480 Balance 480 - Medications Medications: Current Medications Acetaminophen (Tylenol 325mg Tab) 650 mg PO Q4H PRN PRN Reason: Pain, Mild (1-3) Sodium Chloride (Sodium Chloride 0.9%) 1,000 mls @ 100 mls/hr IV .Q10H [facility] Pantoprazole Sodium (Protonix Ec Tab) 40 mg PO 0600 [facility] Last Admin: 05/04/17 06:07 Dose: 40 mg Sucralfate (Carafate Oral Susp) 1 gm PO 0600,1600 [facility] Last Admin: 05/04/17 06:06 Dose: 1 gm Tramadol HCl (Ultram) 50 mg PO Q8 PRN PRN Reason: Pain, moderate (4-7) Last Admin: 05/03/17 23:38 Dose: 50 mg Ursodiol (Actigall) 300 mg PO DAILY [facility] Last Admin: 05/04/17 10:01 Dose: 300 mg - Labs Labs: 05/04/17 08:00 05/04/17 08:00 PT 16.6 SECONDS (9.4-12.5) H 04/28/17 14:05 INR 1.45 (0.93-1.08) H 04/28/17 14:05 APTT 32.4 Seconds (25.1-36.5) 04/28/17 14:05 - Constitutional Appears: No Acute Distress - Eye Exam Eye Exam: Normal appearance. absent: Scleral icterus - ENT Exam ENT Exam: Mucous Membranes Moist - Neck Exam Neck Exam: Normal Inspection - Respiratory Exam Respiratory Exam: NORMAL BREATHING PATTERN. absent: Respiratory Distress - Cardiovascular Exam Cardiovascular Exam: +S1, +S2 - GI/Abdominal Exam GI & Abdominal Exam: Soft, Tenderness (epigastric/RUQ, minimal), Normal Bowel Sounds. absent: Guarding, Rebound - Extremities Exam Extremities Exam: absent: Calf Tenderness, Pedal Edema - Neurological Exam Neurological Exam: Alert, Awake, Oriented x3 - Skin Skin Exam: Dry, Warm Assessment and Plan - Assessment and Plan (Free Text) Assessment: Assessment: Abdominal pain could be multifactoral biliary colic/metestatic disease Cholelithiasis, last abdominal ultrasound was 06/2016 did show gallstones no inflammation and the CBD measured 5 mm, HIDA negative for cholecystitis Colon cancer with metastasis liver and new metastases to bone and peritoneum, presently on chemotherapy Leukocytosis/H/o Fever, r/o port infection Anemia Elevated LFTs may be secondary to liver metastasis Plan: recommend to continue clears for today, abdominal pain only slight improvement, would recommend when ready for solids lowfat diet Trend LFTs Continue PPI on IV antibiotic On Actigall Oncology, ID follow-up surgical FU Case discussed with Dr. Stover who is covering Dr. Turk
--- NOTE | 2017-05-04 19:06 | PN ---
DATE: 05/04/2017 SUBJECTIVE: The patient is in bed, in no acute distress, nontoxic. PHYSICAL EXAMINATION: VITAL SIGNS: Temperature is 98, blood pressure is 140/90, respiratory rate of 20, and heart rate of 98. HEENT: Unremarkable. NECK: Supple. LUNGS: Have decreased breath sounds. HEART: Normal S1 and S2. ABDOMEN: Soft, nontender. LABORATORY DATA: Reveals a white count of 19,000, hemoglobin of 11, platelets of 267, BUN of 6, and creatinine of 0.5. Procalcitonin is 0.67. Urinalysis is noted. Blood cultures are no growth. Urine cultures are no growth. REVIEW OF ORDERS: Revealed the patient is on p.o. cefpodoxime. Dr. Pretty's note from yesterday is reviewed. ASSESSMENT AND PLAN: A 61-year-old female, seen earlier in room 369, bed 2 with systemic inflammatory response syndrome with liver metastasis, colonic malignancy, endometriosis, uterine fibroids - status post removal, on cefpodoxime. The patient is reviewed with CAT scan of the abdomen and pelvis on 04/28/2017, reveals increasing metastatic disease to the liver with new subcapsular fluid collection. The patient is also on p.o. Flagyl, with discontinued antibiotics had persistent leukocytosis, most likely consistent with liver metastasis, noninfectious etiology. She did have some nausea probably secondary to Flagyl. The patient is clinically stable. We will discontinue Vantin and the Flagyl. Dorian Solis MD
[2017-05-04] MEDS: Sodium Chloride 0.9% 1,000 ML IV SCH (21:44)
[2017-05-05] MEDS: Sucralfate 1 gm/10 ml Oral Susp UD PO SCH ×2 (05:47→15:46)
[2017-05-05] MEDS: Pantoprazole 40 mg EC Tab PO SCH (05:47)
[2017-05-05 08:37] LABS: HEMOGLOBIN 10.1 g/dL (12.0-16.0); MEAN CELL VOLUME 83.7 fl (80.0-105.0); MEAN CORPUSCULAR HGB CONC 32.3 g/dl (31.0-37.0); MEAN PLATELET VOLUME 8.7 fl (7.0-11.0); RBC 3.74 10^6/uL (3.5-6.1); RED CELL DISTRIBUTION WIDTH 19.8 % (11.5-14.5); WHITE BLOOD COUNT 14.3 10^3/ul (4.5-11.0)
[2017-05-05 08:58] LABS: ALB/GLOB RATIO 0.8 (1.1-1.8); ALBUMIN 2.7 g/dL (3.0-4.8); ALT/SGPT 36 U/L (7-56); AST/SGOT 63 U/L (14-36); BLOOD UREA NITROGEN 6 mg/dL (7-21); CALCIUM 7.8 mg/dL (8.4-10.5); GFR AFRICAN-AMERICAN > 60; GFR NON-AFRICAN AMERICAN > 60
--- NOTE | 2017-05-05 09:01 | PN ---
DATE: 05/04/[address] Stover dictating an addendum to a progress note performed by Cathi Meade APN. I have personally examined this patient myself, I have reviewed her laboratory data, I agree with Cathi Meade' assessment and plan. The patient's liver enzymes remained stable and there is no evidence of biliary obstruction. The patient does have elevated white blood cell count. Again, her pain is most likely secondary to metastatic disease in her . Mars Stover MD
[2017-05-05] MEDS: Sodium Chloride 0.9% 1,000 ML IV SCH ×2 (10:10→17:02)
[2017-05-05 11:28] LABS: BASO # 0.07 K/mm3 (0.0-2.0); BASO % 0.5 % (0.0-3.0); EOS # 0.1 (0.0-0.7); EOS % 0.3 % (1.5-5.0); GRAN # 12.22 (1.4-6.5); GRAN % 81.7 % (50.0-68.0); HEMOGLOBIN 10.8 g/dL (12.0-16.0); LYMPH # 0.8 (1.2-3.4); LYMPH % 5.3 % (22.0-35.0); MEAN CELL VOLUME 83.9 fl (80.0-105.0); MEAN CORPUSCULAR HEMOGLOBIN 27.1 pg (25.0-35.0); MEAN CORPUSCULAR HGB CONC 32.3 g/dl (31.0-37.0); MEAN PLATELET VOLUME 8.8 fl (7.0-11.0); MONO # 1.8 (0.1-0.6); MONO % 12.2 % (1.0-6.0); RBC 3.98 10^6/uL (3.5-6.1); RED CELL DISTRIBUTION WIDTH 19.7 % (11.5-14.5)
[2017-05-05 11:37] LABS: ALB/GLOB RATIO 0.8 (1.1-1.8); ALBUMIN 2.8 g/dL (3.0-4.8); ALT/SGPT 34 U/L (7-56); AST/SGOT 64 U/L (14-36); BLOOD UREA NITROGEN 6 mg/dL (7-21); CALCIUM 7.9 mg/dL (8.4-10.5); GFR AFRICAN-AMERICAN > 60; GFR NON-AFRICAN AMERICAN > 60
--- NOTE | 2017-05-05 12:22 | CP.PCM.PN ---
Subjective - Date & Time of Evaluation Date of Evaluation: 05/05/17 Time of Evaluation: 10:00 - Subjective Subjective: S&E at bedside, chart reviewed, reorts "annoying" pain in abdomen last night, but not as bad, slowly taking oral intake, diet advanced last night to solids, heart healthy. Having BM but describe as "rigo", no straining or bleeding. No acute overnight events. No fever or chills. Objective - Vital Signs/Intake and Output Vital Signs (last 24 hours): Temp Pulse Resp BP Pulse Ox 98.9 F 88 18 132/82 99 05/05/17 06:00 05/05/17 06:00 05/05/17 06:00 05/05/17 06:00 05/05/17 06:00 Intake and Output: 05/05/17 05/05/17 06:59 18:59 Intake Total 1920 Balance 1920 - Medications Medications: Current Medications Acetaminophen (Tylenol 325mg Tab) 650 mg PO Q4H PRN PRN Reason: Pain, Mild (1-3) Sodium Chloride (Sodium Chloride 0.9%) 1,000 mls @ 100 mls/hr IV .Q10H [facility] Last Admin: 05/05/17 10:10 Dose: 100 mls/hr Pantoprazole Sodium (Protonix Ec Tab) 40 mg PO 0600 [facility] Last Admin: 05/05/17 05:47 Dose: 40 mg Sucralfate (Carafate Oral Susp) 1 gm PO 0600,1600 [facility] Last Admin: 05/05/17 05:47 Dose: 1 gm Tramadol HCl (Ultram) 50 mg PO Q8 PRN PRN Reason: Pain, moderate (4-7) Last Admin: 05/05/17 03:17 Dose: 50 mg Ursodiol (Actigall) 300 mg PO DAILY [facility] Last Admin: 05/05/17 10:09 Dose: 300 mg - Labs Labs: 05/05/17 11:00 05/05/17 11:00 PT 16.6 SECONDS (9.4-12.5) H 04/28/17 14:05 INR 1.45 (0.93-1.08) H 04/28/17 14:05 APTT 32.4 Seconds (25.1-36.5) 04/28/17 14:05 - Constitutional Appears: No Acute Distress - Eye Exam Eye Exam: Normal appearance. absent: Scleral icterus - ENT Exam ENT Exam: Mucous Membranes Moist - Neck Exam Neck Exam: Normal Inspection - Respiratory Exam Respiratory Exam: NORMAL BREATHING PATTERN. absent: Rales, Wheezes, Respiratory Distress - GI/Abdominal Exam GI & Abdominal Exam: Soft, Normal Bowel Sounds. absent: Guarding, Tenderness, Organomegaly, Rebound - Extremities Exam Extremities Exam: absent: Calf Tenderness, Pedal Edema - Neurological Exam Neurological Exam: Alert, Awake, Oriented x3 - Skin Skin Exam: Dry, Warm Assessment and Plan - Assessment and Plan (Free Text) Assessment: Assessment: Abdominal pain could be multifactoral biliary colic/metestatic disease Cholelithiasis, last abdominal ultrasound was 06/2016 did show gallstones no inflammation and the CBD measured 5 mm, HIDA negative for cholecystitis Colon cancer with metastasis liver and new metastases to bone and peritoneum, presently on chemotherapy Leukocytosis/H/o Fever, r/o port infection Anemia Elevated LFTs may be secondary to liver metastasis Plan: continue diet as tolerated heart healthy/lowfat diet start Colace BID Trend LFTs Continue PPI off antibiotics On Actigall Oncology, ID follow-up Case discussed with Dr. Stover who is covering Dr. Turk
--- NOTE | 2017-05-05 12:38 | CP.PCM.PN ---
Subjective - Date & Time of Evaluation Date of Evaluation: 05/05/17 Time of Evaluation: 12:33 - Subjective Subjective: Patient seen and examined at bedside. Patient doing well overnight with mild pain in her abdomen this morning. Patient is having regular bowel movements. Denies chest pain, shortness of breath, nausea, vomiting, diarrhea, fever, chills. Objective - Vital Signs/Intake and Output Vital Signs (last 24 hours): Temp Pulse Resp BP Pulse Ox 98.9 F 88 18 132/82 99 05/05/17 06:00 05/05/17 06:00 05/05/17 06:00 05/05/17 06:00 05/05/17 06:00 Intake and Output: 05/05/17 05/05/17 06:59 18:59 Intake Total 1920 Balance 1920 - Medications Medications: Current Medications Acetaminophen (Tylenol 325mg Tab) 650 mg PO Q4H PRN PRN Reason: Pain, Mild (1-3) Docusate Sodium (Colace) 100 mg PO BID [facility] Sodium Chloride (Sodium Chloride 0.9%) 1,000 mls @ 100 mls/hr IV .Q10H [facility] Last Admin: 05/05/17 10:10 Dose: 100 mls/hr Pantoprazole Sodium (Protonix Ec Tab) 40 mg PO 0600 [facility] Last Admin: 05/05/17 05:47 Dose: 40 mg Sucralfate (Carafate Oral Susp) 1 gm PO 0600,1600 [facility] Last Admin: 05/05/17 05:47 Dose: 1 gm Tramadol HCl (Ultram) 50 mg PO Q8 PRN PRN Reason: Pain, moderate (4-7) Last Admin: 05/05/17 03:17 Dose: 50 mg Ursodiol (Actigall) 300 mg PO DAILY [facility] Last Admin: 05/05/17 10:09 Dose: 300 mg - Labs Labs: 05/05/17 11:00 05/05/17 11:00 PT 16.6 SECONDS (9.4-12.5) H 04/28/17 14:05 INR 1.45 (0.93-1.08) H 04/28/17 14:05 APTT 32.4 Seconds (25.1-36.5) 04/28/17 14:05 - Constitutional Appears: Non-toxic, No Acute Distress - Head Exam Head Exam: ATRAUMATIC, NORMAL INSPECTION, NORMOCEPHALIC - ENT Exam ENT Exam: Mucous Membranes Moist - Respiratory Exam Respiratory Exam: Clear to Ausculation Bilateral, NORMAL BREATHING PATTERN - Cardiovascular Exam Cardiovascular Exam: RRR, +S1, +S2 Additional comments: Right sided chest port a cath - GI/Abdominal Exam GI & Abdominal Exam: Soft, Normal Bowel Sounds. absent: Guarding, Tenderness, Rebound - Extremities Exam Extremities Exam: Normal Inspection. absent: Calf Tenderness, Pedal Edema - Neurological Exam Neurological Exam: Alert, Awake, Oriented x3 - Psychiatric Exam Psychiatric exam: Normal Affect, Normal Mood - Skin Skin Exam: Intact, Normal Color, Warm Assessment and Plan - Assessment and Plan (Free Text) Plan: 61 y/o female with stage IV metastatic Colorectal cancer on systemic FOLFIRI and Avastin admitted with abdominal pain in the setting of cholelithiasis with progression of hepatic and peritioneal mets. Patient with resolving abdominal pain at this time. HIDA was found to be negative. Antibiotics stopped by ID. Will continue Vantin for 4 more days as patient white blood cell count improved while on antibiotics. Bilirubin and LFT's improving. Patient was also reevaluated by surgery who still recommend no intervention at this time. Patient able to tolerate solid low fat diet. If patient continues to progress, will discharge tomorrow. Will likely start patient on Stivarga as an outpatient. Plan discussed with Dr. Pretty. Geovani, PGY-2
[2017-05-05] MEDS: Cefpodoxime (Vantin) 200 mg Tab PO SCH ×2 (13:37→21:55)
[2017-05-05] MEDS ORDERED: Home Med 1 UNIT SC ONE (14:27)
[2017-05-05] MEDS ORDERED: DENOSUMAB 120 MG SC ONE ×2 (14:30→15:30)
[2017-05-05 20:32] VITALS: RESP 20
--- NOTE | 2017-05-06 02:17 | PN ---
DATE: 05/05/2017 SUBJECTIVE: The patient is in bed, in no acute distress, nontoxic though she was in tears. PHYSICAL EXAMINATION: VITAL SIGNS: Temperature is 98, blood pressure is 120/80, respiratory rate of 20, and heart rate of 92. HEENT: Unremarkable. NECK: Supple. LUNGS: Have decreased breath sounds. HEART: Normal S1 and S2. ABDOMEN: Soft, nontender. LABORATORY DATA: Reveals a white count of 15,000. Chemistries were noted. Urinalysis is noted, and serology is noted. Microbiology reveals blood cultures are negative, urine cultures are negative. MEDICATIONS: Review of medications reveal patient is placed on Vantin again by , his note is reviewed. ASSESSMENT AND PLAN: A 61-year-old female seen earlier this morning in no acute distress with systemic inflammatory response syndrome with liver metastasis with colonic malignancy endometriosis, uterine fibroids status post removal and she had nausea and on Flagyl, the Flagyl was discontinued, Vantin with cefpodoxime was restarted again today by nursing, and patient did receive Solu-Cortef which may also be contributing to the leucocytosis and liver metastasis itself, will give patient leukocytosis. I doubt there 14,000, white count is from the antibiotics; repeat one 15,000 today. We will follow with you. Dorian Solis MD
[2017-05-06] MEDS: Pantoprazole 40 mg EC Tab PO SCH (05:16)
[2017-05-06] MEDS: Sucralfate 1 gm/10 ml Oral Susp UD PO SCH (05:17)
[2017-05-06] MEDS: Sodium Chloride 0.9% 1,000 ML IV SCH (05:17)
[2017-05-06 06:41] LABS: MEAN CELL VOLUME 84.3 fl (80.0-105.0); MEAN CORPUSCULAR HEMOGLOBIN 27.5 pg (25.0-35.0); MEAN CORPUSCULAR HGB CONC 32.6 g/dl (31.0-37.0); MEAN PLATELET VOLUME 8.5 fl (7.0-11.0); RBC 3.64 10^6/uL (3.5-6.1); RED CELL DISTRIBUTION WIDTH 19.9 % (11.5-14.5); WHITE BLOOD COUNT 13.3 10^3/ul (4.5-11.0)
[2017-05-06 07:18] LABS: ALBUMIN 2.6 g/dL (3.0-4.8); ALT/SGPT 30 U/L (7-56); AST/SGOT 63 U/L (14-36); BLOOD UREA NITROGEN 5 mg/dL (7-21); CALCIUM 7.5 mg/dL (8.4-10.5); GFR AFRICAN-AMERICAN > 60; GFR NON-AFRICAN AMERICAN > 60
[2017-05-06 07:36] LABS: ALB/GLOB RATIO 0.8 (1.1-1.8)
--- NOTE | 2017-05-06 08:19 | PN ---
DATE: 05/05/2017 ADDENDUM I have personally examined the patient and reviewed all her laboratory data. I agree with Cathi Meade' assessment and recommendations. The patient had an episode of biliary colic last night after having Mac and Cheese. She denies any abdominal pain this morning. I suspect some of her abdominal pain is also related to liver metastasis. Recommendations are to continue current treatment. She is stable from GI standpoint. Mars Stover MD
[2017-05-06] MEDS: Cefpodoxime (Vantin) 200 mg Tab PO SCH (09:15)
[2017-05-06 09:22] VITALS: BP 121/74; PULSE 86; TEMP 98.4; O2SAT 98
--- NOTE | 2017-05-06 13:16 | CP.PCM.PN ---
Subjective - Date & Time of Evaluation Date of Evaluation: 05/06/17 Time of Evaluation: 10:45 - Subjective Subjective: Seen and examined at the bedside earlier today, chart reviewed. Patient feeling better, denies nausea, vomiting, or abdominal pain. Tolerating oral intake. No acute overnight events reported. Had a BM, was not pebble-like, no bleeding. Reported BM was better. Objective - Vital Signs/Intake and Output Vital Signs (last 24 hours): Temp Pulse Resp BP Pulse Ox 98.4 F 86 20 121/74 98 05/06/17 06:00 05/06/17 06:00 05/06/17 06:00 05/06/17 06:00 05/06/17 06:00 Intake and Output: 05/06/17 05/06/17 06:59 18:59 Intake Total 1500 0 Balance 1500 0 - Medications Medications: Current Medications Acetaminophen (Tylenol 325mg Tab) 650 mg PO Q4H PRN PRN Reason: Pain, Mild (1-3) Cefpodoxime Proxetil (Vantin) 200 mg PO Q12 [facility] PRN Reason: Protocol Last Admin: 05/06/17 09:15 Dose: 200 mg Docusate Sodium (Colace) 100 mg PO BID [facility] Last Admin: 05/06/17 09:15 Dose: 100 mg Sodium Chloride (Sodium Chloride 0.9%) 1,000 mls @ 100 mls/hr IV .Q10H [facility] Last Admin: 05/06/17 05:17 Dose: 100 mls/hr Pantoprazole Sodium (Protonix Ec Tab) 40 mg PO 0600 [facility] Last Admin: 05/06/17 05:16 Dose: 40 mg Sucralfate (Carafate Oral Susp) 1 gm PO 0600,1600 [facility] Last Admin: 05/06/17 05:17 Dose: 1 gm Tramadol HCl (Ultram) 50 mg PO Q8 PRN PRN Reason: Pain, moderate (4-7) Last Admin: 05/06/17 00:21 Dose: 50 mg Ursodiol (Actigall) 300 mg PO DAILY [facility] Last Admin: 05/06/17 09:15 Dose: 300 mg - Labs Labs: 05/06/17 06:00 05/06/17 06:00 PT 16.6 SECONDS (9.4-12.5) H 04/28/17 14:05 INR 1.45 (0.93-1.08) H 04/28/17 14:05 APTT 32.4 Seconds (25.1-36.5) 04/28/17 14:05 - Constitutional Appears: No Acute Distress - Eye Exam Eye Exam: Normal appearance. absent: Scleral icterus - ENT Exam ENT Exam: Mucous Membranes Moist - Respiratory Exam Respiratory Exam: NORMAL BREATHING PATTERN. absent: Respiratory Distress - Cardiovascular Exam Cardiovascular Exam: +S1, +S2 - GI/Abdominal Exam GI & Abdominal Exam: Soft, Normal Bowel Sounds. absent: Guarding, Tenderness, Rebound - Extremities Exam Extremities Exam: absent: Calf Tenderness, Pedal Edema - Neurological Exam Neurological Exam: Alert, Awake, Oriented x3 - Skin Skin Exam: Dry, Warm Assessment and Plan - Assessment and Plan (Free Text) Assessment: Assessment: Improved Abdominal pain could be multifactoral biliary colic/metestatic disease Cholelithiasis, last abdominal ultrasound was 06/2016 did show gallstones no inflammation and the CBD measured 5 mm, HIDA negative for cholecystitis Colon cancer with metastasis liver and new metastases to bone and peritoneum, presently on chemotherapy Resolving Leukocytosis Anemia Elevated LFTs may be secondary to liver metastasis Plan: continue diet as tolerated heart healthy/lowfat diet conitnue Colace BID Trend LFTs Continue PPI off antibiotics On Actigall Oncology, ID follow-up Discuss with patient if have acute onset of abdominal pain/fever to go to the ER for further evaluation, continue w/lowfat diet. Plan for DC home today. Patient clinically improving. Case discussed with Dr. Stover who is covering Dr. Turk
--- NOTE | 2017-05-06 15:21 | CP.PCM.DIS ---
Provider - Provider Date of Admission: 04/28/17 17:35 Attending physician: Mark Dennis MD Consults: Surgery - Divya RODRIGUEZ- Dr. Halley MCCALLUM - Dr. Turk Time Spent in preparation of Discharge (in minutes): 45 Diagnosis - Discharge Diagnosis (1) Leukocytosis Status: Acute (2) Metastatic colorectal cancer Status: Chronic (3) Elevated liver enzymes Status: Chronic (4) Cholelithiases Status: Chronic Hospital Course - Lab Results Lab Results: Micro Results 04/29/17 07:18 Blood-Venous Blood Culture - Final NO GROWTH AFTER 5 DAYS 04/29/17 07:18 Blood-Venous Gram Stain - Final TEST NOT PERFORMED Most Recent Lab Values WBC 13.3 10^3/ul (4.5-11.0) H 05/06/17 06:00 RBC 3.64 10^6/uL (3.5-6.1) 05/06/17 06:00 Hgb 10.0 g/dL (12.0-16.0) L 05/06/17 06:00 Hct 30.7 % (36.0-48.0) L 05/06/17 06:00 MCV 84.3 fl (80.0-105.0) 05/06/17 06:00 MCH 27.5 pg (25.0-35.0) 05/06/17 06:00 MCHC 32.6 g/dl (31.0-37.0) 05/06/17 06:00 RDW 19.9 % (11.5-14.5) H 05/06/17 06:00 Plt Count 240 10^3/uL (120.0-450.0) 05/06/17 06:00 MPV 8.5 fl (7.0-11.0) 05/06/17 06:00 Gran % 81.7 % (50.0-68.0) H 05/05/17 11:00 Lymph % (Auto) 5.3 % (22.0-35.0) L 05/05/17 11:00 [place] % (Auto) 12.2 % (1.0-6.0) H 05/05/17 11:00 Eos % (Auto) 0.3 % (1.5-5.0) L 05/05/17 11:00 Baso % (Auto) 0.5 % (0.0-3.0) 05/05/17 11:00 Gran # 12.22 (1.4-6.5) H 05/05/17 11:00 Lymph # 0.8 (1.2-3.4) L 05/05/17 11:00 [place] # 1.8 (0.1-0.6) H 05/05/17 11:00 Eos # 0.1 (0.0-0.7) 05/05/17 11:00 Baso # 0.07 K/mm3 (0.0-2.0) 05/05/17 11:00 Neutrophils % (Manual) 87 % (50.0-70.0) H 05/03/17 11:14 Band Neutrophils % 1 % (0-2) 04/28/17 14:05 Lymphocytes % (Manual) 3 % (22.0-35.0) L 05/03/17 11:14 Monocytes % (Manual) 8 % (1.0-6.0) H 05/03/17 11:14 Eosinophils % (Manual) 1 % (0.0-3.0) 04/28/17 14:05 Myelocytes % 2 % 05/03/17 11:14 Platelet Evaluation Normal (NORMAL) 05/03/17 11:14 PT 16.6 SECONDS (9.4-12.5) H 04/28/17 14:05 INR 1.45 (0.93-1.08) H 04/28/17 14:05 APTT 32.4 Seconds (25.1-36.5) 04/28/17 14:05 pO2 250 mm/Hg (30-55) H 04/29/17 07:45 VBG pH 7.45 (7.32-7.43) H 04/29/17 07:45 VBG pCO2 34.0 (40-60) L 04/29/17 07:45 VBG HCO3 23.6 mmol/l (21-28) 04/29/17 07:45 VBG Total CO2 24.6 mmol.L (22-28) 04/29/17 07:45 VBG O2 Sat (Calc) 100.2 % (40-65) H 04/29/17 07:45 VBG Base Excess 0.1 mmol/L (0.0-2.0) 04/29/17 07:45 VBG Potassium 3.7 mmol/L (3.6-5.2) 04/29/17 07:45 Sodium 130.0 mmol/L (132-148) L 04/29/17 07:45 Chloride 101.0 mmol/L (98-107) 04/29/17 07:45 Glucose 109 mg/dl (65-105) H 04/29/17 07:45 Lactate 1.2 mmol/L (0.7-2.1) 04/29/17 07:45 FiO2 21.0 % 04/29/17 07:45 Sodium 133 mmol/L (132-148) 05/06/17 06:00 Potassium 3.8 mmol/L (3.6-5.0) 05/06/17 06:00 Chloride 106 mmol/L (98-107) 05/06/17 06:00 Carbon Dioxide 22 mmol/L (21-33) 05/06/17 06:00 Anion Gap 9 (10-20) L 05/06/17 06:00 BUN 5 mg/dL (7-21) L 05/06/17 06:00 Creatinine 0.4 mg/dl (0.7-1.2) L 05/06/17 06:00 Est GFR ( Amer) > 60 05/06/17 06:00 Est GFR (Non-Af Amer) > 60 05/06/17 06:00 Random Glucose 88 mg/dL (70-110) 05/06/17 06:00 Calcium 7.5 mg/dL (8.4-10.5) L 05/06/17 06:00 Total Bilirubin 0.8 mg/dL (0.2-1.3) 05/06/17 06:00 Direct Bilirubin 0.9 mg/dL (0.0-0.4) H 04/29/17 07:30 AST 63 U/L (14-36) H 05/06/17 06:00 ALT 30 U/L (7-56) 05/06/17 06:00 Alkaline Phosphatase 189 U/L (38-126) H 05/06/17 06:00 Lactate Dehydrogenase 1999 U/L (333-699) H 04/28/17 14:05 Total Creatine Kinase 140 U/L (35-230) 04/28/17 14:05 Troponin I < 0.01 ng/mL 04/28/17 14:05 Total Protein 6.1 g/dL (5.8-8.3) 05/06/17 06:00 Albumin 2.6 g/dL (3.0-4.8) L 05/06/17 06:00 Globulin 3.5 gm/dL 05/06/17 06:00 Albumin/Globulin Ratio 0.8 (1.1-1.8) L 05/06/17 06:00 Amylase 70 U/L (35-125) 04/28/17 14:05 Lipase 79 U/L (23-300) 04/28/17 14:05 Procalcitonin 0.67 NG/ML (0.19-0.49) H 04/28/17 18:53 Venous Blood Potassium 3.7 mmol/L (3.6-5.2) 04/29/17 07:45 Urine Color Straw (YELLOW) 04/28/17 14:00 Urine Appearance Sl cloudy (CLEAR) 04/28/17 14:00 Urine pH 6.0 (4.7-8.0) 04/28/17 14:00 Ur Specific [place] 1.025 (1.005-1.035) 04/28/17 14:00 Urine Protein 30 mg/dL (<30 mg/dL) H 04/28/17 14:00 Urine Glucose (UA) 100 mg/dL (NEGATIVE) H 04/28/17 14:00 Urine Ketones Trace mg/dL (NEGATIVE) H 04/28/17 14:00 Urine Blood Trace-intact (NEGATIVE) H 04/28/17 14:00 Urine Nitrate Negative (NEGATIVE) 04/28/17 14:00 Urine Bilirubin Small (NEGATIVE) H 04/28/17 14:00 Urine Urobilinogen >=8.0 E.U./dL (<1 E.U./dL) 04/28/17 14:00 Ur Leukocyte Esterase Negative Lauren/uL (NEGATIVE) 04/28/17 14:00 Urine RBC 0 - 2 /hpf (0-2) 04/28/17 14:00 Urine WBC 0 - 2 /hpf (0-6) 04/28/17 14:00 Ur Epithelial Cells 6 - 8 /hpf (0-5) 04/28/17 14:00 Urine Bacteria Trace (NEG) 04/28/17 14:00 Influenza Typ A,B (EIA) Negative for flu a/b (NEGATIVE) 04/29/17 12:10 Blood Type O POSITIVE 05/01/17 06:30 Antibody Screen Negative 05/01/17 06:30 Crossmatch See Detail 05/01/17 06:30 BBK History Checked Patient has bt 05/01/17 06:30 - Hospital Course Hospital Course: 61 year old female with past medical history of Endometriosis, colon cancer with metastasis to the bone and liver, currently on chemotherapy, and cholelithiasis presented initially for severe abdominal pain. Patient was seen in the office by Dr. Pretty who recommended patient come to the hospital. In the hospital, patient received an abdomen/pelvis CT which demonstrated worsening of the liver metastases at this point. Patient also developed mild hyperbilirubinemia. Patient was placed on Vantin and Flagyl. Patient was also evaluated by surgery and GI who recommended a HIDA scan. HIDA scan demonstrated cholelithiasis with no evidence of cholecystitis. Patient's pain gradually improved. Patient was also placed on actigall. Patient was given 1 dose of Xgeva in the hospital. Patient was given a 3 day course of Vantin to go home with. Patient to follow up in Dr. Pretty's office in 1 week. Discharge Exam - Head Exam Head Exam: ATRAUMATIC, NORMAL INSPECTION, NORMOCEPHALIC - Eye Exam Eye Exam: Normal appearance - ENT Exam ENT Exam: Mucous Membranes Moist - Respiratory Exam Respiratory Exam: NORMAL BREATHING PATTERN, UNREMARKABLE - Cardiovascular Exam Cardiovascular Exam: RRR, +S1, +S2 - GI/Abdominal Exam GI & Abdominal Exam: Normal Bowel Sounds, Soft, Tenderness (Mild, diffuse) - Extremities Exam Extremities exam: normal inspection - Neurological Exam Neurological exam: Alert, CN II-XII Intact, Oriented x3 - Psychiatric Exam Psychiatric exam: Normal Affect, Normal Mood - Skin Skin Exam: Intact, Normal Color, Warm Discharge Plan - Discharge Medications Prescriptions: Cefpodoxime [Vantin] 200 mg PO Q12 #6 tab - Follow Up Plan Condition: FAIR Disposition: HOME/ ROUTINE Instructions: Low Fat Diet (DC), Acute Nausea and Vomiting (DC), Acute Abdominal Pain (DC), Leukocytosis (DC), Leukocytosis (GEN) Additional Instructions: Call to make appointment with Dr. Pretty on 05/11/16 Continue to take antibiotics for 3 more days Take home medications as prescribed
--- NOTE | 2017-05-06 19:28 | PN ---
DATE: 05/06/2017 SUBJECTIVE: Patient is in bed in no acute distress, nontoxic. No fevers. Patient was seen earlier this morning. PHYSICAL EXAMINATION VITAL SIGNS: Temperature is 98, blood pressure is 120/70, respiratory rate of 16. HEENT: Unremarkable NECK: Supple. LUNGS: Decreased breath sounds. HEART: Normal S1, S2. ABDOMEN: Soft.. LABORATORY EXAMINATION: Reviewed. White count is noted. ASSESSMENT AND PLAN: This is a 61-year-old female who was seen early this morning. Patient with systemic inflammatory response syndrome. Patient with liver metastasis, colonic malignancy, endometriosis, uterine fibroids, status post removal. Dorian Solis MD
--- NOTE | 2017-05-07 08:34 | PN ---
DATE: 05/06/2017 ADDENDUM This is an addendum to the progress note performed by Cathi Meade on 04/29/2017. I personally examined this patient and reviewed her laboratory data. I agree with Cathi Meade' impression and recommendations. The patient feels much better without any further abdominal pain. She is tolerating solid foods. She is being discharged home. She has instructions to follow up with Dr. Turk as an outpatient. Mars Stover MD
== END 2017-05-06 15:33 | disposition home or self-care (01) | DRG 557 ==
LOC: ED 12:52 → ERH 17:35 → 3RNO 20:25
PROVIDERS: ADMIT Family Medicine; ATTEND Family Medicine
PROC: 30233N1 Transfusion of Nonautologous Red Blood Cells into Peripheral Vein, Percutaneous Approach (ICD-10-PCS; principal; 2017-05-01)
DX: K80.20 Calculus of gallbladder without cholecystitis without obstruction (principal); R65.10 Systemic inflammatory response syndrome (SIRS) of non-infectious origin without acute organ dysfunction; C78.7 Secondary malignant neoplasm of liver and intrahepatic bile duct; C78.00 Secondary malignant neoplasm of unspecified lung; C78.6 Secondary malignant neoplasm of retroperitoneum and peritoneum; C79.51 Secondary malignant neoplasm of bone; C19 Malignant neoplasm of rectosigmoid junction; N18.9 Chronic kidney disease, unspecified; D63.8 Anemia in other chronic diseases classified elsewhere; I12.9 Hypertensive chronic kidney disease with stage 1 through stage 4 chronic kidney disease, or unspecified chronic kidney disease; K21.9 Gastro-esophageal reflux disease without esophagitis; N80.9 Endometriosis, unspecified; T37.3X5A Adverse effect of other antiprotozoal drugs, initial encounter; Z79.899 Other long term (current) drug therapy; Z91.018 Allergy to other foods

== ENCOUNTER 2017-05-19 07:25 | Inpatient (IN) | payer MEDICAID ==
[2017-05-19 07:33] VITALS: BMI 28.0
[2017-05-19] MEDS ORDERED: Sodium Chloride 0.9% 1,000 ML IV STA (08:05)
[2017-05-19 08:35] LABS: BASO # 0.03 K/mm3 (0.0-2.0); BASO % 0.2 % (0.0-3.0); EOS % 0.1 % (1.5-5.0); GRAN # 14.39 (1.4-6.5); HEMOGLOBIN 10.9 g/dL (12.0-16.0); LYMPH # 1.2 (1.2-3.4); LYMPH % 6.6 % (22.0-35.0); MEAN CELL VOLUME 84.8 fl (80.0-105.0); MEAN CORPUSCULAR HEMOGLOBIN 27.6 pg (25.0-35.0); MEAN CORPUSCULAR HGB CONC 32.5 g/dl (31.0-37.0); MEAN PLATELET VOLUME 8.4 fl (7.0-11.0); MONO % 11.1 % (1.0-6.0); RBC 3.95 10^6/uL (3.5-6.1); RED CELL DISTRIBUTION WIDTH 19.1 % (11.5-14.5); WHITE BLOOD COUNT 17.6 10^3/ul (4.5-11.0)
[2017-05-19 08:43] LABS: INR 1.64 (0.93-1.08); PARTIAL THROMBOPLASTIN TIME 30.4 Seconds (25.1-36.5)
--- NOTE | 2017-05-19 08:47 | RAD ---
HISTORY: abd pain COMPARISON: 04/28/2017 FINDINGS: LUNGS: Bilateral lower lobe linear atelectasis. No infiltrate. PLEURA: No significant pleural effusion identified, no pneumothorax apparent. CARDIOVASCULAR: Right central venous infusion port. OSSEOUS STRUCTURES: No significant abnormalities. VISUALIZED UPPER ABDOMEN: Normal. OTHER FINDINGS: None. IMPRESSION: No active disease.
[2017-05-19 08:59] LABS: ALB/GLOB RATIO 0.8 (1.1-1.8); ALBUMIN 3.2 g/dL (3.0-4.8); ALT/SGPT 28 U/L (7-56); AST/SGOT 114 U/L (14-36); BLOOD UREA NITROGEN 6 mg/dL (7-21); CALCIUM 8.9 mg/dL (8.4-10.5); GFR AFRICAN-AMERICAN > 60; GFR NON-AFRICAN AMERICAN > 60; LIPASE 37 U/L (23-300)
--- NOTE | 2017-05-19 09:19 | ED PDOC ---
Arrival/HPI - General Chief Complaint: Abdominal Pain Time Seen by Provider: 05/19/17 08:04 Historian: Patient - History of Present Illness Narrative History of Present Illness (Text): 05/19/17 09:18 A 61 year old female, whose past medical history includes colon cancer with metastatis to liver and gallstones, presents to the emergency department complaining of abdominal pain for about a month. Notes taking Tramadol last night. Reports loss of appetite, but denies any fever, diarrhea, nausea, vomiting or any other complaints at this time. Time/Duration: Other (month) Symptom Onset: Sudden Symptom Course: Unchanged Activities at Onset: Rest Context: Home Past Medical History - Provider Review Nursing Documentation Reviewed: Yes - Infectious Disease Hx of Infectious Diseases: None - Tetanus Immunization Tetanus Immunization: Unknown - Reproductive Menopause: Yes - Cardiac Hx Cardiac Disorders: Yes Hx Hypertension: Yes - Pulmonary Hx Respiratory Disorders: No - Neurological Hx Neurological Disorder: No - HEENT Hx HEENT Disorder: No - Renal Hx Renal Disorder: Yes Hx Kidney Stones: Yes - Endocrine/Metabolic Hx Endocrine Disorders: No - Hematological/Oncological Hx Blood Disorders: Yes Hx Anemia: Yes (blood transfusion) Hx Cancer: Yes (colon CA) Hx Chemotherapy: Yes Hx Metastasis: Yes (liver) - Integumentary Hx Dermatological Disorder: No - Musculoskeletal/Rheumatological Hx Falls: No - Gastrointestinal Hx Gastrointestinal Disorders: Yes (colon ca) Other/Comment: liver/colon ca on chemo. HX BLOOD TRANSFUSION - Genitourinary/Gynecological Hx Genitourinary Disorders: Yes Other/Comment: fibroids, endometriosis - Psychiatric Hx Psychophysiologic Disorder: No Hx Depression: No Hx Emotional Abuse: No Hx Physical Abuse: No Hx Substance Use: No - Surgical History Other/Comment: laparotomy for uterine fibroid resectionR chest port placedR chest port placed - Anesthesia Hx Anesthesia: Yes - Suicidal Assessment Feels Threatened In Home Enviroment: No Family/Social History - Physician Review Nursing Documentation Reviewed: Yes Family/Social History: No Known Family HX Smoking Status: Never Smoked Hx Alcohol Use: Yes (social) Hx Substance Use: No Hx Substance Use Treatment: No Allergies/Home Meds Allergies/Adverse Reactions: Allergies montano Allergy (Intermediate, Uncoded 05/19/17 07:41) URTICARIA Home Medications: Home Meds Medication Instructions Recorded Confirmed Ergocalciferol (Vitamin D2) 50,000 unit PO SUN 03/17/16 05/19/17 [Vitamin D2] Omeprazole 40 mg PO DAILY 08/06/16 05/19/17 Sucralfate [Carafate Oral Susp] 10 gm PO BID 08/13/16 05/19/17 Denosumab [Xgeva] 120 mg SC Q30D 03/19/17 05/19/17 Pyridoxine [Vitamin B6] 3 tab PO BID 03/27/17 05/19/17 Lisinopril [Zestril] 2.5 mg PO DAILY 04/07/17 05/19/17 Review of Systems - Physician Review All systems were reviewed & negative as marked: Yes - Review of Systems Constitutional: absent: Fevers Gastrointestinal: Abdominal Pain, Appetite Changes (loss of appetite). absent: Diarrhea, Nausea, Vomiting Physical Exam - Physical Exam Narrative Physical Exam (Text): 05/19/17 09:16 Constitutional: No acute distress. Head: Normocephalic. Atraumatic. Eyes: PERRL. eyes mildly ecteric ENT: Moist mucous membranes. Neck: Supple. Cardiovascular: Regular rate. Chest: No tenderness. Respiratory: Clear to auscultation bilaterally. GI: RUQ and epigastric tenderness to palpation. Distended. No rebound, No guarding. Back: No CVA tenderness. Musculoskeletal: No tenderness or swelling of extremities. Skin: No rash. Neurologic: Alert, no focal deficit. Vital Signs Reviewed: Yes Vital Signs Temp Pulse Resp BP Pulse Ox 05/19/17 10:03 96 H 18 127/69 96 05/19/17 07:25 98.2 F 109 H 20 137/70 97 Temperature: Afebrile Blood Pressure: Normal Pulse: Tachycardic Respiratory Rate: Normal Appearance: Positive for: Well-Appearing, Non-Toxic, Comfortable Pain Distress: None Mental Status: Positive for: Alert and Oriented X 3 Medical Decision Making ED Course and Treatment: 05/19/17 09:16 Impression: A 61 year old female with abdominal pain. Plan: -- EKG -- chest xray -- labs -- IV fluids -- Reassess and disposition Prior Visits: Notes and results from previous visits were reviewed. Patient was last seen in the emergency department on 04/28/17 for evaluation of abnormal labs and abdominal pain, nausea and vomiting. Progress Notes: EKG: Ordered, reviewed, and independently interpreted the EKG. Rate : 100 BPM Rhythm : sinus tachycardia Interpretation : no ST elevations, no T wave inversions 05/19/17 08:49 chest xray Creator : Christiano Patrick MD IMPRESSION: No active disease. Patient will require further evaluation of biliary colic as she does have gallstones but also concern for tumor causing obstruction. Dr. Turk added patient to schedule today. Dr. Pretty accepts to his service. - Lab Interpretations Lab Results: 05/19/17 08:20 05/19/17 08:20 Lab Results 05/19/17 08:20: Sodium 130 L, Potassium 4.5, Chloride 98, Carbon Dioxide 22, Anion Gap 15, BUN 6 L, Creatinine 0.5 L, Est GFR ( Amer) > 60, Est GFR ( Non-Af Amer) > 60, Random Glucose 102, Calcium 8.9, Total Bilirubin 2.8 H, AST 114 H D, ALT 28, Alkaline Phosphatase 268 H D, Total Protein 7.3, Albumin 3.2, Globulin 4.2, Albumin/Globulin Ratio 0.8 L, Lipase 37 05/19/17 08:20: PT 19.0 H, INR 1.64 H, APTT 30.4 05/19/17 08:20: WBC 17.6 H D, RBC 3.95, Hgb 10.9 L, Hct 33.5 L, MCV 84.8, MCH 27.6, MCHC 32.5, RDW 19.1 H, Plt Count 224, MPV 8.4, Gran % 82.0 H, Lymph % ( Auto) 6.6 L, [place] % (Auto) 11.1 H, Eos % (Auto) 0.1 L, Baso % (Auto) 0.2, Gran # 14.39 H, Lymph # 1.2, [place] # 2.0 H, Eos # 0.0, Baso # 0.03 05/19/17 08:04: Blood Type O POSITIVE, Antibody Screen Negative, BBK History Checked Patient has bt I have reviewed the lab results: Yes - RAD Interpretation Radiology Orders: 05/19/17 08:05 CHEST PORTABLE [RAD] Stat - EKG Interpretation Interpreted by ED Physician: Yes Type: 12 lead EKG - Medication Orders Current Medication Orders: Discontinued Medications Sodium Chloride (Sodium Chloride 0.9%) 1,000 mls @ 999 mls/hr IV .Q1H1M STA Stop: 05/19/17 09:05 Last Admin: 05/19/17 08:17 Dose: 999 mls/hr eMAR Start Stop Document 05/19/17 08:17 SRE (Rec: 05/19/17 08:20 [email or web address] [id number]) Intravenous Solution Start Date 05/19/17 Start Time 08:20 End Date 05/19/17 End time 09:20 Total Infusion Time 60 Morphine Sulfate (Morphine) 4 mg IVP STAT STA Stop: 05/19/17 09:44 Last Admin: 05/19/17 10:02 Dose: 4 mg IVP Administration Document 05/19/17 10:02 SRE (Rec: 05/19/17 10:02 SRE [id number]) Charges for Administration # of IVP Administrations 1 - Scribe Statement The provider has reviewed the documentation as recorded by the Gayleibdiego Yost Provider Scribe Attestation: All medical record entries made by the Scribe were at my direction and personally dictated by me. I have reviewed the chart and agree that the record accurately reflects my personal performance of the history, physical exam, medical decision making, and the department course for this patient. I have also personally directed, reviewed, and agree with the discharge instructions and disposition. Disposition/Present on Arrival - Present on Arrival Any Indicators Present on Arrival: No History of DVT/PE: No History of Uncontrolled Diabetes: No Urinary Catheter: No History of Decub. Ulcer: No History Surgical Site Infection Following: None - Disposition Have Diagnosis and Disposition been Completed?: Yes Diagnosis: Biliary colic Disposition: HOSPITALIZED Disposition Time: 09:49 Patient Plan: Admission Condition: FAIR
[2017-05-19] MEDS ORDERED: Morphine 5 MG/ML SYRINGE IVP STA (09:43)
[2017-05-19] MEDS ORDERED: Morphine 2 mg/ml ISec IVP PRN (11:13)
[2017-05-19] MEDS ORDERED: Morphine 5 MG/ML SYRINGE IV PRN (11:16)
[2017-05-19] MEDS: Sucralfate 1 gm/10 ml Oral Susp UD PO SCH ×3 (11:30→22:33)
[2017-05-19] MEDS: Sodium Chloride 0.9% 1,000 ML IV SCH ×2 (11:31→22:42)
--- NOTE | 2017-05-19 11:43 | CP.PCM.CON ---
History of Present Illness - History of Present Illness History of Present Illness: Seen and examined at the bedside in the emergency room, chart reviewed. Request for GI consult is for right upper quadrant pain HPI:This is a 61-year-old female with a history of metastatic colon cancer was sent to the emergency room for complaints of constant right upper quadrant pain. The patient reports decreased appetite and some weight loss. This patient was recently seen by our service on her admission on April,. At that time she was complaining of diffuse pain but mostly on right upper quadrant pain she had CT scan, abdominal ultrasounds done which did show some gallstones and sludge, and a mildly dilated duct, and metestatic disease to the liver, she had a a HIDA scan to rule out acute cholecystitis, this was a negative study. Her pain was also thought to be contributed to the metastatic disease, it did slowly improve and patient was able to tolerate diet and was having no problems with bowel movements. The patient was discharged home [facility] and has been following up with her oncologist Dr. Pretty. Her last chemotherapy was in April 09, 2017. She denies any fever or chills, no episodes of nausea or vomiting. She describes the pain to be in the right upper quadrant and is constant pain. At times the location of the pain may fluctuate. She has been moving her bowels regularly no reports of diarrhea melena or bright red blood per rectum. In review of her records she did have an abdominal ultrasound on 05/16/2017 this showed multiple gallbladder stones and sludge as well as multiple metastatic cysts in the liver and the common bile duct measured 7 mm. Past medical history: Endometriosis, colon cancer with metastasis currently on chemotherapy, gallstones Surgical history: Laparotomy for uterine fibroids, Port-A-Cath, last colonoscopy was 12/2015 which showed the colon mass, internal hemorrhoids and diverticulosis Allergies: [place] Family history: Denies Social history: Socially drinks wine on occasion, smoking denied, recreational drug denies Medications: Reviewed as per MAR ROS: Systems reviewed with positive findings see HPI Past Patient History - Infectious Disease Hx of Infectious Diseases: None - Tetanus Immunizations Tetanus Immunization: Unknown - Past Medical History & Family History Past Medical History?: Yes - Past Social History Smoking Status: Never Smoked - CARDIAC Hx Cardiac Disorders: Yes Hx Hypertension: Yes - PULMONARY Hx Respiratory Disorders: No - NEUROLOGICAL Hx Neurological Disorder: No - HEENT Hx HEENT Problems: No - RENAL Hx Chronic Kidney Disease: Yes Hx Kidney Stones: Yes - ENDOCRINE/METABOLIC Hx Endocrine Disorders: No - HEMATOLOGICAL/ONCOLOGICAL Hx Blood Disorders: Yes Hx Anemia: Yes (blood transfusion) Hx Cancer: Yes (colon CA) Hx Chemotherapy: Yes Hx Metastesis: Yes (liver) - INTEGUMENTARY Hx Dermatological Problems: No - MUSCULOSKELETAL/RHEUMATOLOGICAL Hx Falls: No - GASTROINTESTINAL Hx Gastrointestinal Disorders: Yes (colon ca) Other/Comment: liver/colon ca on chemo. HX BLOOD TRANSFUSION - GENITOURINARY/GYNECOLOGICAL Hx Genitourinary Disorders: Yes Other/Comment: fibroids, endometriosis - PSYCHIATRIC Hx Psychophysiologic Disorder: No Hx Depression: No Hx Emotional Abuse: No Hx Physical Abuse: No Hx Substance Use: No - SURGICAL HISTORY Other/Comment: laparotomy for uterine fibroid resectionR chest port placedR chest port placed - ANESTHESIA Hx Anesthesia: Yes Meds Allergies/Adverse Reactions: Allergies Allergy/AdvReac Type Severity Reaction Status Date / Time montano Allergy Intermediate URTICARIA Uncoded 05/19/17 07:41 - Medications Medications: Current Medications Ergocalciferol (Drisdol 50,000 Intl Units Cap) 1 cap PO SUN [facility] Heparin Sodium (Porcine) (Heparin) 5,000 units SC Q12 [place] PRN Reason: Protocol Sodium Chloride (Sodium Chloride 0.9%) 1,000 mls @ 100 mls/hr IV .Q10H [facility] Lisinopril (Zestril) 2.5 mg PO DAILY [facility] Morphine Sulfate (Morphine) 2 mg IV Q4H PRN PRN Reason: Pain, severe (8-10) Ondansetron HCl (Zofran Inj) 4 mg IVP Q4H PRN PRN Reason: Nausea/Vomiting Pantoprazole Sodium (Protonix Ec Tab) 40 mg PO 0600 [facility] Pyridoxine HCl (Vitamin B6 50 Mg Tab) 50 mg PO DAILY [facility] Sucralfate (Carafate Oral Susp) 1 gm PO 0630,1130,1630,2200 [place] Ursodiol (Actigall) 300 mg PO DAILY [facility] Physical Exam - Constitutional Appears: No Acute Distress - Head Exam Head Exam: NORMOCEPHALIC - Eye Exam Eye Exam: absent: Normal appearance, Scleral icterus - ENT Exam ENT Exam: Mucous Membranes Moist - Neck Exam Neck exam: Positive for: Normal Inspection - Respiratory Exam Respiratory Exam: Clear to Auscultation Bilateral, NORMAL BREATHING PATTERN. absent: Respiratory Distress - Cardiovascular Exam Cardiovascular Exam: +S1, +S2 - GI/Abdominal Exam GI & Abdominal Exam: Guarding, Normal Bowel Sounds, Soft, Tenderness. absent: Rebound Additional comments: (+) RUQ tenderness, voluntary guarding, no rebound - Extremities Exam Extremities exam: Positive for: pedal pulses present. Negative for: calf tenderness, pedal edema - Neurological Exam Neurological exam: Alert, CN II-XII Intact, Oriented x3 - Skin Skin Exam: Dry, Warm Results - Vital Signs Recent Vital Signs: Last Vital Signs Temp 98.2 F 05/19/17 07:25 Pulse 96 H 05/19/17 10:03 Resp 18 05/19/17 10:03 BP 127/69 05/19/17 10:03 Pulse Ox 96 05/19/17 10:03 - Labs Result Diagrams: 05/19/17 08:20 05/19/17 08:20 Assessment & Plan - Assessment and Plan (Free Text) Assessment: ASSESSMENT: RUQ Abdminal Pain Cholelithiasis with sludge Dilated CBD Colon cancer with metastasis Anemia PLAN: NPO , continue IVF continue GI propyhlaxsis plan for EGD/EUS this afternoon monitor LFT DVT prophylaxsis pain mgt. as per oncology Thank you for this consult and for allowing us to participate in your patient care, further recommendation based upon clinical course. Seen and discussed w/ Dr. Turk.
--- NOTE | 2017-05-19 12:25 | CARD ---
APPROVED REPORT EKG Measurement Heart [id number] <Conclusion> Sinus tachycardia Possible Anterolateral infarct, age undetermined Abnormal ECG
--- NOTE | 2017-05-19 14:26 | CP.PCM.HP ---
History of Present Illness - History of Present Illness History of Present Illness: 61 y/o F with endometriosis and stage IV metastatic colorectal cancer presents with worsening abdominal pain for the past week. Patient was recently admitted for abdominal pain in the setting of cholelithasis, but without cholecystitis. HIDA was negative at that time. Patient followed with Dr. Pretty in his office. Initially, patient was found to have pain management with home pain medications. Pain gradually increased and upon next appointment with Dr. Pretty , she was found to have increased pain and elevated white count. Patient also admits to decreased oral intake secondary to abdominal pain. Patient also admits to extreme fatigue and early satiety during this time. Denies chest pain , shortness of breath, nausea, vomiting, diarrhea, fever, chills, headache, syncope. PMH: Endometriosis, stage IV metastatic colorectal cancer, previously on FOLFIRI , Avastin, Xgeva Surgical Hx: Port placement Family Hx: Noncontributory Social Hx: Occasional alcohol use. Denies tobacco or illicit drug use Medications: Reviewed, as per [facility] Allergies: Montano Present on Admission - Present on Admission Any Indicators Present on Admission: No Review of Systems - Review of Systems Review of Systems: 12 point ROS as per HPI, otherwise negative. Past Patient History - Infectious Disease Hx of Infectious Diseases: None - Tetanus Immunizations Tetanus Immunization: Unknown - Past Medical History & Family History Past Medical History?: Yes - Past Social History Smoking Status: Never Smoked - CARDIAC Hx Cardiac Disorders: Yes Hx Hypertension: Yes - PULMONARY Hx Respiratory Disorders: No - NEUROLOGICAL Hx Neurological Disorder: No - HEENT Hx HEENT Problems: No - RENAL Hx Chronic Kidney Disease: Yes Hx Kidney Stones: Yes - ENDOCRINE/METABOLIC Hx Endocrine Disorders: No - HEMATOLOGICAL/ONCOLOGICAL Hx Blood Disorders: Yes Hx Anemia: Yes (blood transfusion) Hx Cancer: Yes (colon CA) Hx Chemotherapy: Yes Hx Metastesis: Yes (liver) - INTEGUMENTARY Hx Dermatological Problems: No - MUSCULOSKELETAL/RHEUMATOLOGICAL Hx Falls: No - GASTROINTESTINAL Hx Gastrointestinal Disorders: Yes (colon ca) Other/Comment: liver/colon ca on chemo. HX BLOOD TRANSFUSION - GENITOURINARY/GYNECOLOGICAL Hx Genitourinary Disorders: Yes Other/Comment: fibroids, endometriosis - PSYCHIATRIC Hx Psychophysiologic Disorder: No Hx Depression: No Hx Emotional Abuse: No Hx Physical Abuse: No Hx Substance Use: No - SURGICAL HISTORY Other/Comment: laparotomy for uterine fibroid resectionR chest port placedR chest port placed - ANESTHESIA Hx Anesthesia: Yes Meds Allergies/Adverse Reactions: Allergies Allergy/AdvReac Type Severity Reaction Status Date / Time omntano Allergy Intermediate URTICARIA Uncoded 05/19/17 12:02 Physical Exam - Constitutional Appears: Non-toxic, No Acute Distress - Head Exam Head Exam: ATRAUMATIC, NORMAL INSPECTION, NORMOCEPHALIC - Eye Exam Eye Exam: EOMI, Normal appearance - ENT Exam ENT Exam: Mucous Membranes Moist, Normal Exam - Neck Exam Neck exam: Positive for: Normal Inspection. Negative for: Lymphadenopathy - Respiratory Exam Respiratory Exam: Clear to Auscultation Bilateral, NORMAL BREATHING PATTERN. absent: Rales, Rhonchi, Wheezes - Cardiovascular Exam Cardiovascular Exam: RRR, +S1, +S2 - GI/Abdominal Exam GI & Abdominal Exam: Distended, Normal Bowel Sounds, Rebound, Soft, Tenderness ( Diffuse, mainly in epigastric region). absent: Guarding - Extremities Exam Extremities exam: Positive for: normal inspection. Negative for: calf tenderness, pedal edema - Neurological Exam Neurological exam: Alert, CN II-XII Intact, Oriented x3 - Psychiatric Exam Psychiatric exam: Normal Affect, Normal Mood - Skin Skin Exam: Intact, Normal Color, Warm Results - Vital Signs Recent Vital Signs: Last Vital Signs Temp 98.2 F 05/19/17 07:25 Pulse 94 H 05/19/17 11:29 Resp 18 05/19/17 11:29 BP 119/69 05/19/17 11:29 Pulse Ox 96 05/19/17 11:29 - Labs Result Diagrams: 05/19/17 08:20 05/19/17 08:20 Assessment & Plan - Assessment and Plan (Free Text) Plan: 61 y/o F with PMH of stage IV metastatic colorectal cancer presents with worsening abdominal pain. Patient received morphine in the ED which alleviated her pain. Patient will undergo endoscopy with EUS later this afternoon by Dr. Turk. Patient will be continued on home medications. We will also watch her white blood count and add antibiotics accordingly. Patient with mild elevation in bilirubin, which was also witnessed on last admission. Hyperbillirubinemia resolved on last admission, will watch carefully and await input from GI. Will continue IV fluids as patient has had decreased appetite secondary to her abdominal pain. Will start patient on heart healthy diet and monitor closely. Will consider obtaining HIDA if endoscopy with EUS is not revealing. Plan discussed with Dr. Pretty. Geovani, PGY-2
[2017-05-19] MEDS ORDERED: Propofol 10 mg/ml Inj (20 ML) ONE ×3 (15:15→16:13)
[2017-05-19] MEDS ORDERED: Lidocaine 2% Inj (20ml) ONE (15:16)
[2017-05-19] MEDS ORDERED: Succinylcholine 200 mg/10 ml Inj IV ONE (15:18)
[2017-05-19] MEDS ORDERED: Pneumococcal 23-Valent Vaccine IM ONE (15:35)
[2017-05-19] MEDS ORDERED: Influenza Vaccine 60 mcg/0.5 mL SYR (4YR UP) IM ONE (15:35)
[2017-05-19] MEDS ORDERED: Sodium Chloride 0.9% 1,000 ML IV SCH (17:00)
[2017-05-19] MEDS: Morphine 5 MG/ML SYRINGE IV PRN (22:42)
[2017-05-20] MEDS: Morphine 5 MG/ML SYRINGE IV PRN ×3 (02:48→21:45)
[2017-05-20] MEDS: Pantoprazole 40 mg EC Tab PO SCH (05:33)
[2017-05-20] MEDS: Sucralfate 1 gm/10 ml Oral Susp UD PO SCH ×4 (05:34→21:45)
[2017-05-20 07:09] LABS: ALB/GLOB RATIO 0.7 (1.1-1.8); ALBUMIN 2.8 g/dL (3.0-4.8); ALT/SGPT 34 U/L (7-56); AST/SGOT 105 U/L (14-36); BLOOD UREA NITROGEN 7 mg/dL (7-21); CALCIUM 8.5 mg/dL (8.4-10.5); GFR AFRICAN-AMERICAN > 60; GFR NON-AFRICAN AMERICAN > 60
--- NOTE | 2017-05-20 10:39 | CP.PCM.PN ---
Subjective - Date & Time of Evaluation Date of Evaluation: 05/20/17 Time of Evaluation: 10:35 - Subjective Subjective: Patient seen and examined at bedside. Patient describes intermittent bouts of intense pain overnight that was controlled with medication. Patient was able to tolerate her meal last night. No bowel movements yet. Denies chest pain, shortness of breath, nausea, vomiting, diarrhea, fever, chills. Objective - Vital Signs/Intake and Output Vital Signs (last 24 hours): Temp Pulse Resp BP Pulse Ox 98.4 F 78 15 121/68 98 05/19/17 17:14 05/19/17 17:14 05/19/17 17:14 05/19/17 17:14 05/19/17 17:14 Intake and Output: 05/20/17 05/20/17 06:59 18:59 Intake Total 360 100 Balance 360 100 - Medications Medications: Current Medications Ergocalciferol (Drisdol 50,000 Intl Units Cap) 1 cap PO SUN [facility] Heparin Sodium (Porcine) (Heparin) 5,000 units SC Q12 [facility] PRN Reason: Protocol Last Admin: 05/19/17 22:33 Dose: 5,000 units Sodium Chloride (Sodium Chloride 0.9%) 1,000 mls @ 100 mls/hr IV .Q10H [facility] Last Admin: 05/19/17 22:42 Dose: 100 mls/hr Sodium Chloride (Sodium Chloride 0.9%) 1,000 mls @ 100 mls/hr IV .Q10H [facility] Lisinopril (Zestril) 2.5 mg PO DAILY [facility] Morphine Sulfate (Morphine) 2 mg IV Q4H PRN PRN Reason: Pain, severe (8-10) Last Admin: 05/20/17 02:48 Dose: 2 mg Ondansetron HCl (Zofran Inj) 4 mg IVP Q4H PRN PRN Reason: Nausea/Vomiting Pantoprazole Sodium (Protonix Ec Tab) 40 mg PO 0600 [facility] Last Admin: 05/20/17 05:33 Dose: 40 mg Pyridoxine HCl (Vitamin B6 50 Mg Tab) 50 mg PO DAILY [facility] Sucralfate (Carafate Oral Susp) 1 gm PO 0630,1130,1630,2200 [facility] Last Admin: 05/20/17 05:34 Dose: 1 gm Ursodiol (Actigall) 300 mg PO DAILY [facility] - Labs Labs: 05/20/17 06:00 PT 19.0 SECONDS (9.4-12.5) H 05/19/17 08:20 INR 1.64 (0.93-1.08) H 05/19/17 08:20 APTT 30.4 Seconds (25.1-36.5) 05/19/17 08:20 - Constitutional Appears: Non-toxic, No Acute Distress - Head Exam Head Exam: ATRAUMATIC, NORMAL INSPECTION, NORMOCEPHALIC - ENT Exam ENT Exam: Mucous Membranes Moist - Respiratory Exam Respiratory Exam: Clear to Ausculation Bilateral, NORMAL BREATHING PATTERN - Cardiovascular Exam Cardiovascular Exam: RRR, +S1, +S2 - GI/Abdominal Exam GI & Abdominal Exam: Distended, Soft, Tenderness (Diffuse), Diminished Bowel Sounds. absent: Guarding - Extremities Exam Extremities Exam: Normal Inspection. absent: Calf Tenderness, Pedal Edema - Neurological Exam Neurological Exam: Alert, Awake, Oriented x3 - Psychiatric Exam Psychiatric exam: Normal Affect, Normal Mood - Skin Skin Exam: Intact, Normal Color, Warm Assessment and Plan - Assessment and Plan (Free Text) Plan: 61 y/o F with PMH of stage IV metastatic colorectal cancer presents with worsening abdominal pain. Patient currently has abdominal pain controlled by Morphine. Patient underwent endoscopy with EUS which showed cholelithiasis, mulitple liver mets, and gastritis. It was recommended that the patient receive a HIDA scan, which is scheduled for later today. There is a decrease in WBC and bilirubin today. Patient is tolerating her diet. Will obtain surgery consult at this time. We will continue to monitor closely. Plan to be discussed with Dr. Pretty. Geovani, PGY-2
[2017-05-20 10:59] LABS: HEMOGLOBIN 10.4 g/dL (12.0-16.0); MEAN CORPUSCULAR HEMOGLOBIN 26.9 pg (25.0-35.0); RBC 3.86 10^6/uL (3.5-6.1); WHITE BLOOD COUNT 12.8 10^3/ul (4.5-11.0)
--- NOTE | 2017-05-20 11:43 | CP.PCM.PN ---
<Cathi Meade - Last Filed: 05/20/17 11:42> Subjective - Date & Time of Evaluation Date of Evaluation: 05/20/17 Time of Evaluation: 10:15 - Subjective Subjective: Seen and examined at the bedside earlier today, chart reviewed. Patient reports intermittent abdominal pain last night with some relief with analgesia. Patient underwent EGD EUS, found to have multiple gallstones, and sludge, CBD measured 7 mm no stones. Positive ascites, patient does report increased abdominal distention. And also noted on EUS multiple liver metastases. Endoscopy hiatal hernia with erythema in the stomach the duodenum was okay. Pending HIDA scan. Tolerated dinner and breakfast. No reports of nausea vomiting, no bowel movements. Objective - Vital Signs/Intake and Output Vital Signs (last 24 hours): Temp Pulse Resp BP Pulse Ox 99.5 F 75 20 114/76 96 05/20/17 06:00 05/20/17 11:22 05/20/17 06:00 05/20/17 11:22 05/20/17 06:00 Intake and Output: 05/20/17 05/20/17 06:59 18:59 Intake Total 360 100 Balance 360 100 - Medications Medications: Current Medications Ergocalciferol (Drisdol 50,000 Intl Units Cap) 1 cap PO SUN [facility] Heparin Sodium (Porcine) (Heparin) 5,000 units SC Q12 [facility] PRN Reason: Protocol Last Admin: 05/20/17 11:23 Dose: 5,000 units Sodium Chloride (Sodium Chloride 0.9%) 1,000 mls @ 100 mls/hr IV .Q10H [facility] Last Admin: 05/19/17 22:42 Dose: 100 mls/hr Sodium Chloride (Sodium Chloride 0.9%) 1,000 mls @ 100 mls/hr IV .Q10H [facility] Lisinopril (Zestril) 2.5 mg PO DAILY [facility] Last Admin: 05/20/17 11:22 Dose: 2.5 mg Morphine Sulfate (Morphine) 2 mg IV Q4H PRN PRN Reason: Pain, severe (8-10) Last Admin: 05/20/17 11:19 Dose: 2 mg Ondansetron HCl (Zofran Inj) 4 mg IVP Q4H PRN PRN Reason: Nausea/Vomiting Pantoprazole Sodium (Protonix Ec Tab) 40 mg PO 0600 [facility] Last Admin: 05/20/17 05:33 Dose: 40 mg Pyridoxine HCl (Vitamin B6 50 Mg Tab) 50 mg PO DAILY [facility] Last Admin: 05/20/17 11:23 Dose: 50 mg Sucralfate (Carafate Oral Susp) 1 gm PO 0630,1130,1630,2200 [facility] Last Admin: 05/20/17 11:24 Dose: 1 gm Ursodiol (Actigall) 300 mg PO DAILY [facility] Last Admin: 05/20/17 11:23 Dose: 300 mg - Labs Labs: 05/20/17 10:52 05/20/17 06:00 PT 19.0 SECONDS (9.4-12.5) H 05/19/17 08:20 INR 1.64 (0.93-1.08) H 05/19/17 08:20 APTT 30.4 Seconds (25.1-36.5) 05/19/17 08:20 - Constitutional Appears: No Acute Distress - Head Exam Head Exam: NORMOCEPHALIC - Eye Exam Eye Exam: Normal appearance. absent: Scleral icterus - ENT Exam ENT Exam: Mucous Membranes Moist - Neck Exam Neck Exam: Normal Inspection - Respiratory Exam Respiratory Exam: Clear to Ausculation Bilateral, NORMAL BREATHING PATTERN. absent: Respiratory Distress - Cardiovascular Exam Cardiovascular Exam: +S1, +S2 - GI/Abdominal Exam GI & Abdominal Exam: Distended, Soft, Tenderness (right upper quadrant), Normal Bowel Sounds. absent: Guarding, Rebound - Extremities Exam Extremities Exam: Normal Capillary Refill. absent: Calf Tenderness, Pedal Edema - Neurological Exam Neurological Exam: Alert, Awake, Oriented x3 Assessment and Plan - Assessment and Plan (Free Text) Assessment: ASSESSMENT: RUQ Abdminal Pain Cholelithiasis with sludge Dilated CBD Colon cancer with metastasis Anemia PLAN: low-fat diet continue GI propyhlaxsis, on Protonix and Carafate monitor LFT DVT prophylaxsis On Actigall pain mgt. as per oncology pending HIDA scan Seen and discussed w/ Dr. Turk. <Joi Turk V - Last Filed: 05/26/17 19:29> Objective - Vital Signs/Intake and Output Vital Signs (last 24 hours): Temp Pulse Resp BP Pulse Ox 98.6 F 94 H 20 135/82 95 05/20/17 16:30 05/20/17 16:30 05/20/17 16:30 05/20/17 16:30 05/20/17 16:30 Intake and Output: 05/20/17 05/21/17 18:59 06:59 Intake Total 100 480 Balance 100 480 - Medications Medications: Current Medications Ergocalciferol (Drisdol 50,000 Intl Units Cap) 1 cap PO SUN [facility] Heparin Sodium (Porcine) (Heparin) 5,000 units SC Q12 [facility] PRN Reason: Protocol Last Admin: 05/20/17 21:45 Dose: 5,000 units Sodium Chloride (Sodium Chloride 0.9%) 1,000 mls @ 100 mls/hr IV .Q10H [facility] Last Admin: 05/19/17 22:42 Dose: 100 mls/hr Sodium Chloride (Sodium Chloride 0.9%) 1,000 mls @ 100 mls/hr IV .Q10H [facility] Lisinopril (Zestril) 2.5 mg PO DAILY [facility] Last Admin: 05/20/17 11:22 Dose: 2.5 mg Morphine Sulfate (Morphine) 2 mg IV Q4H PRN PRN Reason: Pain, severe (8-10) Last Admin: 05/20/17 21:45 Dose: 2 mg Ondansetron HCl (Zofran Inj) 4 mg IVP Q4H PRN PRN Reason: Nausea/Vomiting Pantoprazole Sodium (Protonix Ec Tab) 40 mg PO 0600 [facility] Last Admin: 05/20/17 05:33 Dose: 40 mg Sucralfate (Carafate Oral Susp) 1 gm PO 0630,1130,1630,2200 [facility] Last Admin: 05/20/17 21:45 Dose: 1 gm Ursodiol (Actigall) 300 mg PO DAILY [facility] Last Admin: 05/20/17 11:23 Dose: 300 mg - Labs Labs: 05/20/17 10:52 05/20/17 06:00 PT 19.0 SECONDS (9.4-12.5) H 05/19/17 08:20 INR 1.64 (0.93-1.08) H 05/19/17 08:20 APTT 30.4 Seconds (25.1-36.5) 05/19/17 08:20 Attending/Attestation - Attestation I have personally seen and examined this patient.: Yes I have fully participated in the care of the patient.: Yes I have reviewed all pertinent clinical information, including history, physical exam and plan: Yes Notes (Text): This is an addendum to GI progress report dictated by Cathi Meade APN.The patient was seen and examined earlier. Medical records, lab studies, imagings were reviewed. Last 24 hours events reviewed. Agreed with the above treatment plan as outlined in Cathi Meade APN's notes the with the addition of the following HIDA scan showed a nonvisualized gallbladder history of cholecystitis. On examination patient has tenderness right upper quadrant area Discussed with the surgical team Discuss with oncologist Continue antibiotics 05/20/17 23:38a
--- NOTE | 2017-05-20 16:19 | NM ---
PROCEDURE: Nuclear Medicine Hepatobiliary Scan HISTORY: Cholelithiasis COMPARISON: 05/15/2017 abdominal ultrasound 02/2018 hepatobiliary scan TECHNIQUE: 6.0 mCi of technetium 99m Mebrofenin was administered intravenously. Planar images of the abdomen were obtained at 5 min intervals to 60 mins. Delayed images were also obtained. FINDINGS: LIVER: Heterogeneous with multiple photon deficient areas consistent with known hepatic masses. COMMON BILE DUCT: identified at 30 mins. GALLBLADDER: Not visualized on delayed images. SMALL BOWEL: Identified at 30 mins. IMPRESSION: Abnormal Hepatobiliary Scan. The cystic duct is occluded consistent with acute cholecystitis. The gallbladder D visualized on the prior study. .
[2017-05-21] MEDS: Morphine 5 MG/ML SYRINGE IV PRN ×4 (02:39→21:41)
[2017-05-21] MEDS: Pantoprazole 40 mg EC Tab PO SCH (05:27)
[2017-05-21] MEDS: Sucralfate 1 gm/10 ml Oral Susp UD PO SCH ×3 (05:34→17:12)
[2017-05-21 07:17] LABS: HEMOGLOBIN 9.9 g/dL (12.0-16.0); MEAN CELL VOLUME 85.4 fl (80.0-105.0); MEAN CORPUSCULAR HEMOGLOBIN 27.2 pg (25.0-35.0); MEAN CORPUSCULAR HGB CONC 31.8 g/dl (31.0-37.0); MEAN PLATELET VOLUME 8.5 fl (7.0-11.0); RBC 3.64 10^6/uL (3.5-6.1); RED CELL DISTRIBUTION WIDTH 19.4 % (11.5-14.5); WHITE BLOOD COUNT 13.7 10^3/ul (4.5-11.0)
[2017-05-21 08:24] LABS: ALB/GLOB RATIO 0.7 (1.1-1.8); ALBUMIN 2.6 g/dL (3.0-4.8); ALT/SGPT 29 U/L (7-56); AST/SGOT 128 U/L (14-36); BLOOD UREA NITROGEN 5 mg/dL (7-21); CALCIUM 7.9 mg/dL (8.4-10.5); GFR AFRICAN-AMERICAN > 60; GFR NON-AFRICAN AMERICAN > 60
--- NOTE | 2017-05-21 08:53 | CP.PCM.CON ---
History of Present Illness - History of Present Illness History of Present Illness: General Surgery Consult Note for Bonita 61 year old female with endometriosis and stage IV metastatic colorectal cancer diagnosed in March 2016 who presents to [facility] with worsening abdominal pain for the past week. Patient reports recent admission on 05/04- for similar symptoms, but reports since her discharge her abdominal pain has increased in frequency and severity. After discharge she followed up with her Oncologist, Dr. Pretty, and noted to appear very ill. She was therefore advised to go to the ED. Furthermore, the patient admits to decreased oral intake secondary to abdominal pain, extreme fatigue and early satiety. She does , however, denies chest pain, shortness of breath, nausea, vomiting, diarrhea, fever, chills, headache, syncope. Since the patient's admission, an endoscopic ultrasound was performed that revealed gastritis, multiple stones in the gallbladder, CBD measured 7 mm in diameter without stones, gall bladder wall thickened upto 5.5 mm with pericholecystic fluid, ascites , and multiple liver metastasis. Surgery was consulted due cholelithiasis. PMH: Endometriosis, stage IV metastatic colorectal cancer, previously on FOLFIRI , Avastin, Xgeva Surgical Hx: Port placement, partial hysterectomy Family Hx: Noncontributory Social Hx: Occasional alcohol use. Denies tobacco or illicit drug use Medications: Reviewed, as per [facility] Allergies: Montano Review of Systems - Review of Systems All systems: reviewed and no additional remarkable complaints except Review of Systems: as per HPI Past Patient History - Infectious Disease Hx of Infectious Diseases: None - Tetanus Immunizations Tetanus Immunization: Unknown - Past Medical History & Family History Past Medical History?: Yes - Past Social History Smoking Status: Never Smoked - CARDIAC Hx Cardiac Disorders: Yes Hx Hypertension: Yes - PULMONARY Hx Respiratory Disorders: No - NEUROLOGICAL Hx Neurological Disorder: No - HEENT Hx HEENT Problems: No - RENAL Hx Chronic Kidney Disease: Yes Hx Kidney Stones: Yes - ENDOCRINE/METABOLIC Hx Endocrine Disorders: No - HEMATOLOGICAL/ONCOLOGICAL Hx Blood Transfusions: Yes Hx Blood Transfusion Reaction: No - INTEGUMENTARY Hx Dermatological Problems: No - MUSCULOSKELETAL/RHEUMATOLOGICAL Hx Falls: No - GASTROINTESTINAL Hx Gastrointestinal Disorders: Yes (colon ca) Other/Comment: liver/colon ca on chemo. HX BLOOD TRANSFUSION - GENITOURINARY/GYNECOLOGICAL Hx Genitourinary Disorders: Yes Other/Comment: fibroids, endometriosis - PSYCHIATRIC Hx Psychophysiologic Disorder: No Hx Depression: No Hx Emotional Abuse: No Hx Physical Abuse: No Hx Substance Use: No - SURGICAL HISTORY Hx Surgeries: Yes (PORT,LAPARTOTOMY,) - ANESTHESIA Hx Anesthesia Reactions: No Hx Malignant Hyperthermia: No Meds Allergies/Adverse Reactions: Allergies Allergy/AdvReac Type Severity Reaction Status Date / Time montano Allergy Intermediate URTICARIA Uncoded 05/19/17 12:02 - Medications Medications: Current Medications Ergocalciferol (Drisdol 50,000 Intl Units Cap) 1 cap PO SUN [facility] Heparin Sodium (Porcine) (Heparin) 5,000 units SC Q12 [facility] PRN Reason: Protocol Last Admin: 05/20/17 21:45 Dose: 5,000 units Sodium Chloride (Sodium Chloride 0.9%) 1,000 mls @ 100 mls/hr IV .Q10H [facility] Last Admin: 05/19/17 22:42 Dose: 100 mls/hr Sodium Chloride (Sodium Chloride 0.9%) 1,000 mls @ 100 mls/hr IV .Q10H [facility] Lisinopril (Zestril) 2.5 mg PO DAILY [facility] Last Admin: 05/20/17 11:22 Dose: 2.5 mg Morphine Sulfate (Morphine) 2 mg IV Q4H PRN PRN Reason: Pain, severe (8-10) Last Admin: 05/21/17 02:39 Dose: 2 mg Ondansetron HCl (Zofran Inj) 4 mg IVP Q4H PRN PRN Reason: Nausea/Vomiting Pantoprazole Sodium (Protonix Ec Tab) 40 mg PO 0600 [facility] Last Admin: 05/21/17 05:27 Dose: 40 mg Sucralfate (Carafate Oral Susp) 1 gm PO 0630,1130,1630,2200 [facility] Last Admin: 05/21/17 05:34 Dose: 1 gm Ursodiol (Actigall) 300 mg PO DAILY [facility] Last Admin: 05/20/17 11:23 Dose: 300 mg Physical Exam - Constitutional Appears: Non-toxic - Head Exam Head Exam: ATRAUMATIC, NORMOCEPHALIC - Eye Exam Eye Exam: EOMI, Normal appearance - ENT Exam ENT Exam: Mucous Membranes Moist, Normal Oropharynx - Neck Exam Neck exam: Positive for: Normal Inspection - Respiratory Exam Respiratory Exam: NORMAL BREATHING PATTERN. absent: Accessory Muscle Use - Cardiovascular Exam Cardiovascular Exam: RRR, +S1, +S2 - GI/Abdominal Exam GI & Abdominal Exam: Normal Bowel Sounds, Tenderness (epigastric and RUQ) - Rectal Exam Rectal Exam: absent: Deferred - Extremities Exam Extremities exam: Positive for: normal inspection. Negative for: calf tenderness - Back Exam Back exam: NORMAL INSPECTION. absent: CVA tenderness (L), CVA tenderness (R) - Neurological Exam Neurological exam: Alert, CN II-XII Intact, Oriented x3 - Psychiatric Exam Psychiatric exam: Normal Affect, Normal Mood Results - Vital Signs Recent Vital Signs: Last Vital Signs Temp 98.6 F 05/20/17 16:30 Pulse 94 H 05/20/17 16:30 Resp 20 05/20/17 16:30 BP 135/82 05/20/17 16:30 Pulse Ox 95 05/20/17 16:30 - Labs Result Diagrams: 05/21/17 06:45 05/21/17 06:45 Labs: Laboratory Results - last 24 hr 05/20/17 05/21/17 05/21/17 10:52 06:45 06:45 WBC 12.8 H D 13.7 H RBC 3.86 3.64 Hgb 10.4 L 9.9 L Hct 33.6 L 31.1 L MCV 87.0 85.4 MCH 26.9 27.2 MCHC 31.0 31.8 RDW 20.0 H 19.4 H Plt Count 240 219 MPV 9.0 8.5 Sodium 135 Potassium 4.4 Chloride 104 Carbon Dioxide 23 Anion Gap 12 BUN 5 L Creatinine 0.5 L Est GFR ( Amer) > 60 Est GFR (Non-Af Amer) > 60 Random Glucose 102 Calcium 7.9 L Total Bilirubin 1.9 H AST 128 H D ALT 29 Alkaline Phosphatase 247 H Total Protein 6.5 Albumin 2.6 L Globulin 3.8 Albumin/Globulin Ratio 0.7 L Assessment & Plan - Assessment and Plan (Free Text) Assessment: 61 year old female with RUQ with stage IV metastatic colon cancer with metastasis to the liver and cholelithiasis. Plan: No surgical intervention planned at this time. Patient would not like surgery as well. Continue with medical management. Please recall as needed. Further recommendations per Dr. Bronson. - Date & Time Date: 05/20/17 Time: 15:17
[2017-05-21] MEDS: Sodium Chloride 0.9% 1,000 ML IV SCH ×2 (10:14→16:23)
[2017-05-21] MEDS: metroNIDAZOLE IV 500 mg/100 ml 500 MG/100 ML BAG IVPB SCH ×2 (15:18→21:44)
--- NOTE | 2017-05-21 15:35 | CP.PCM.PN ---
Subjective - Date & Time of Evaluation Date of Evaluation: 05/21/17 Time of Evaluation: 09:00 - Subjective Subjective: General surgery Progress Note for Dr. Ghosh Patient seen and examined at bedside. Patient reports she did not sleep well overnight. Patient denies any nausea, vomiting, or diarrhea. Nurse reports no events overnight. Objective - Vital Signs/Intake and Output Vital Signs (last 24 hours): Temp Pulse Resp BP Pulse Ox 98.5 F 92 H 18 121/73 97 05/21/17 09:32 05/21/17 10:13 05/21/17 09:32 05/21/17 10:13 05/21/17 09:32 Intake and Output: 05/21/17 05/21/17 06:59 18:59 Intake Total 480 560 Balance 480 560 - Medications Medications: Current Medications Ergocalciferol (Drisdol 50,000 Intl Units Cap) 1 cap PO SUN [facility] Heparin Sodium (Porcine) (Heparin) 5,000 units SC Q12 [facility] PRN Reason: Protocol Last Admin: 05/21/17 10:12 Dose: 5,000 units Ceftriaxone Sodium (Rocephin 1 Gram Ivpb) 1 gm in 100 mls @ 100 mls/hr IVPB DAILY [facility] PRN Reason: Protocol Metronidazole (Flagyl) 500 mg in 100 mls @ 100 mls/hr IVPB Q8 [facility] PRN Reason: Protocol Last Admin: 05/21/17 15:18 Dose: 100 mls/hr Sodium Chloride (Sodium Chloride 0.9%) 1,000 mls @ 50 mls/hr IV .Q20H [facility] Lisinopril (Zestril) 2.5 mg PO DAILY [facility] Last Admin: 05/21/17 10:13 Dose: 2.5 mg Morphine Sulfate (Morphine) 2 mg IV Q4H PRN PRN Reason: Pain, severe (8-10) Last Admin: 05/21/17 15:14 Dose: 2 mg Ondansetron HCl (Zofran Inj) 4 mg IVP Q4H PRN PRN Reason: Nausea/Vomiting Pantoprazole Sodium (Protonix Ec Tab) 40 mg PO 0600 [facility] Last Admin: 05/21/17 05:27 Dose: 40 mg Spironolactone (Aldactone) 25 mg PO BID [facility] Sucralfate (Carafate Oral Susp) 1 gm PO BID [facility] Ursodiol (Actigall) 300 mg PO DAILY [facility] Last Admin: 05/21/17 10:13 Dose: 300 mg - Labs Labs: 05/21/17 06:45 05/21/17 06:45 PT 19.0 SECONDS (9.4-12.5) H 05/19/17 08:20 INR 1.64 (0.93-1.08) H 05/19/17 08:20 APTT 30.4 Seconds (25.1-36.5) 05/19/17 08:20 - Constitutional Appears: Well, Non-toxic - Head Exam Head Exam: ATRAUMATIC, NORMOCEPHALIC - Eye Exam Eye Exam: EOMI, Normal appearance - ENT Exam ENT Exam: Mucous Membranes Moist, Normal Oropharynx - Neck Exam Neck Exam: Normal Inspection - Respiratory Exam Respiratory Exam: NORMAL BREATHING PATTERN. absent: Accessory Muscle Use - GI/Abdominal Exam GI & Abdominal Exam: Soft. absent: Guarding, Rigid, Rebound - Extremities Exam Extremities Exam: Normal Capillary Refill, Normal Inspection. absent: Calf Tenderness - Neurological Exam Neurological Exam: Alert, Awake, Oriented x3 - Psychiatric Exam Psychiatric exam: Normal Affect, Normal Mood - Skin Skin Exam: Dry, Intact, Normal Color, Warm Assessment and Plan - Assessment and Plan (Free Text) Assessment: 61 year old female with stage IV colon cancer with metastatic liver lesion and cholelithiasis. Plan: No surgery planned at this time as the risks would outweight the benefit. This was relayed to the patient and to the other medical providers involved in the care of this patient. As always, thank you for allowing us to participate in the care of this patient. Case discussed with Dr. Stokes
[2017-05-21] MEDS: cefTRIAXone 1 gm 1 GM/100 ML BAG IVPB SCH (16:19)
--- NOTE | 2017-05-21 18:02 | CP.PCM.PN ---
<Cathi Meade - Last Filed: 05/22/17 13:23> Subjective - Date & Time of Evaluation Date of Evaluation: 05/21/17 Time of Evaluation: 10:45 - Subjective Subjective: Seen and examined at the bedside earlier today, chart reviewed. Patient still having intermittent abdominal pain. No reports of nausea, vomiting, fever or chills. Patient had HIDA scan which was positive for acute cholecystitis, cystic duct is occluded. Objective - Vital Signs/Intake and Output Vital Signs (last 24 hours): Temp Pulse Resp BP Pulse Ox 98.5 F 92 H 18 121/73 97 05/21/17 09:32 05/21/17 10:13 05/21/17 09:32 05/21/17 10:13 05/21/17 09:32 Intake and Output: 05/21/17 05/21/17 06:59 18:59 Intake Total 480 560 Balance 480 560 - Medications Medications: Current Medications Ergocalciferol (Drisdol 50,000 Intl Units Cap) 1 cap PO SUN [facility] Heparin Sodium (Porcine) (Heparin) 5,000 units SC Q12 [facility] PRN Reason: Protocol Last Admin: 05/21/17 10:12 Dose: 5,000 units Ceftriaxone Sodium (Rocephin 1 Gram Ivpb) 1 gm in 100 mls @ 100 mls/hr IVPB DAILY [facility] PRN Reason: Protocol Last Admin: 05/21/17 16:19 Dose: 100 mls/hr Metronidazole (Flagyl) 500 mg in 100 mls @ 100 mls/hr IVPB Q8 [facility] PRN Reason: Protocol Last Admin: 05/21/17 15:18 Dose: 100 mls/hr Sodium Chloride (Sodium Chloride 0.9%) 1,000 mls @ 50 mls/hr IV .Q20H [facility] Last Admin: 05/21/17 16:23 Dose: 50 mls/hr Lisinopril (Zestril) 2.5 mg PO DAILY [facility] Last Admin: 05/21/17 10:13 Dose: 2.5 mg Morphine Sulfate (Morphine) 2 mg IV Q4H PRN PRN Reason: Pain, severe (8-10) Last Admin: 05/21/17 15:14 Dose: 2 mg Ondansetron HCl (Zofran Inj) 4 mg IVP Q4H PRN PRN Reason: Nausea/Vomiting Pantoprazole Sodium (Protonix Ec Tab) 40 mg PO 0600 [facility] Last Admin: 05/21/17 05:27 Dose: 40 mg Spironolactone (Aldactone) 25 mg PO BID [facility] Last Admin: 05/21/17 17:12 Dose: 25 mg Sucralfate (Carafate Oral Susp) 1 gm PO BID [facility] Last Admin: 05/21/17 17:12 Dose: 1 gm Ursodiol (Actigall) 300 mg PO DAILY [facility] Last Admin: 05/21/17 10:13 Dose: 300 mg - Labs Labs: 05/21/17 06:45 05/21/17 06:45 PT 19.0 SECONDS (9.4-12.5) H 05/19/17 08:20 INR 1.64 (0.93-1.08) H 05/19/17 08:20 APTT 30.4 Seconds (25.1-36.5) 05/19/17 08:20 - Constitutional Appears: No Acute Distress - Eye Exam Eye Exam: Scleral icterus. absent: Normal appearance - ENT Exam ENT Exam: Mucous Membranes Moist - Neck Exam Neck Exam: Normal Inspection - Respiratory Exam Respiratory Exam: NORMAL BREATHING PATTERN. absent: Respiratory Distress - Cardiovascular Exam Cardiovascular Exam: +S1, +S2 - GI/Abdominal Exam GI & Abdominal Exam: Distended, Soft, Tenderness, Normal Bowel Sounds. absent: Guarding, Rebound - Extremities Exam Extremities Exam: absent: Calf Tenderness, Pedal Edema - Neurological Exam Neurological Exam: Alert, Awake, Oriented x3 Assessment and Plan - Assessment and Plan (Free Text) Assessment: ASSESSMENT: RUQ Abdminal Pain,, status post HIDA scan positive for cystic duct obstruction/ acute cholecystitis Cholelithiasis with sludge Dilated CBD Colon cancer with metastasis Anemia PLAN: change diet to clear liquids Start IV antibiotics Flagyl and ceftriaxone, see orders continue GI propyhlaxsis, on Protonix and Carafate monitor LFT DVT prophylaxsis On Actigall pain mgt. as per oncology patient evaluated by surgical team, as per surgery:"no plans for surgical intervention, risk outweigh benefit" Case was discussed with Dr. Stokes. Seen and discussed w/ Dr. Turk. <Joi Turk V - Last Filed: 05/26/17 19:38> Objective - Vital Signs/Intake and Output Vital Signs (last 24 hours): Temp Pulse Resp BP Pulse Ox 98.8 F 96 H 20 127/83 99 05/21/17 16:00 05/21/17 16:00 05/21/17 16:00 05/21/17 16:00 05/21/17 16:00 Intake and Output: 05/21/17 05/22/17 18:59 06:59 Intake Total 560 480 Balance 560 480 - Medications Medications: Current Medications Ergocalciferol (Drisdol 50,000 Intl Units Cap) 1 cap PO SUN [facility] Heparin Sodium (Porcine) (Heparin) 5,000 units SC Q12 [facility] PRN Reason: Protocol Last Admin: 05/21/17 21:42 Dose: 5,000 units Ceftriaxone Sodium (Rocephin 1 Gram Ivpb) 1 gm in 100 mls @ 100 mls/hr IVPB DAILY [facility] PRN Reason: Protocol Last Admin: 05/21/17 16:19 Dose: 100 mls/hr Metronidazole (Flagyl) 500 mg in 100 mls @ 100 mls/hr IVPB Q8 [facility] PRN Reason: Protocol Last Admin: 05/21/17 21:44 Dose: 100 mls/hr Sodium Chloride (Sodium Chloride 0.9%) 1,000 mls @ 50 mls/hr IV .Q20H [facility] Last Admin: 05/21/17 16:23 Dose: 50 mls/hr Lisinopril (Zestril) 2.5 mg PO DAILY [facility] Last Admin: 05/21/17 10:13 Dose: 2.5 mg Morphine Sulfate (Morphine) 2 mg IV Q4H PRN PRN Reason: Pain, severe (8-10) Last Admin: 05/21/17 21:41 Dose: 2 mg Ondansetron HCl (Zofran Inj) 4 mg IVP Q4H PRN PRN Reason: Nausea/Vomiting Pantoprazole Sodium (Protonix Ec Tab) 40 mg PO 0600 [facility] Last Admin: 05/21/17 05:27 Dose: 40 mg Spironolactone (Aldactone) 25 mg PO BID [facility] Last Admin: 05/21/17 17:12 Dose: 25 mg Sucralfate (Carafate Oral Susp) 1 gm PO BID [facility] Last Admin: 05/21/17 17:12 Dose: 1 gm Ursodiol (Actigall) 300 mg PO DAILY [facility] Last Admin: 05/21/17 10:13 Dose: 300 mg - Labs Labs: 05/21/17 06:45 05/21/17 06:45 PT 19.0 SECONDS (9.4-12.5) H 05/19/17 08:20 INR 1.64 (0.93-1.08) H 05/19/17 08:20 APTT 30.4 Seconds (25.1-36.5) 05/19/17 08:20 Attending/Attestation - Attestation I have personally seen and examined this patient.: Yes I have fully participated in the care of the patient.: Yes I have reviewed all pertinent clinical information, including history, physical exam and plan: Yes Notes (Text): This is an addendum to GI progress report dictated by Cathi Meade APN.The patient was seen and examined earlier. Medical records, lab studies, imagings were reviewed. Last 24 hours events reviewed. Agreed with the above treatment plan as outlined in Cathi Meade APN's notes the with the addition of the following on examination abdomen soft and mild tenderness in the epigastric area Continue the antibiotics and advance diet 05/22/17 00:13
--- NOTE | 2017-05-21 22:31 | PN ---
DATE: 05/21/2017 This is [facility] visit on the medical floor. From Dr. Pretty. SUBJECTIVE: The patient is a 61-year-old female, seen lying awake in bed with increased abdominal girth, ascites, now with a HIDA scan done yesterday showing that the patient does have cystic duct occluded consistent with acute cholecystitis with the gallbladder visualized on the prior study. With this, the patient, however, reports that her pain is improved with Dr. Stokes, surgeon, recommending to hold off on any type of interventional procedure at this time including cholecystectomy as the patient does have known advanced stage IV metastatic colorectal CA with primary tumor in the right colon, with documented metastasis to liver, lung, retroperitoneum, also the root of the mesentery. She was treated with FOLFIRI and Avastin as per Dr. Pretty with the patient's risks for successful outcome unfortunately not outweighing the benefits of a procedure at this time. This is explained to the patient at length at the bedside with patient now recommended for antibiotic treatment of her disease process for now, with consideration for further management should her medical condition change. She is otherwise in no acute distress with consideration for transfer to TCU, so that Dr. Pretty may resume chemotherapy for the patient in anticipation of a possible procedure in the future should it be indicated. OBJECTIVE PHYSICAL EXAMINATION: VITAL SIGNS: Temperature 98.8, pulse 96, respirations 20, blood pressure 127/82, pulse ox 99%. HEENT: Unremarkable. Sclerae are mildly icteric. NECK: Supple. HEART: Tachy rate, regular rhythm. LUNGS: Minimally decreased breath sounds at the bases. ABDOMEN: Distended with minimal tenderness to gentle palpation of right upper quadrant with ascitic fluid wave noted. EXTREMITIES: However, showed no edema. SKIN: Otherwise warm and dry. NEUROLOGIC: She is awake, alert and oriented x3. LABORATORY DATA: The patient's labs were done. White blood cell count of 13.7, hemoglobin 9.9, hematocrit 31.1, platelet count of 219,000. Chem metabolic panel showing a calcium of 7.9, total bilirubin of 1.9 down from 2.8 two days prior, AST of 128, alkaline phosphatase of 247. With this, the patient's other testing as reported above was the HIDA scan which was significant. She also had an EGD, EUS by Dr Turk 2 days prior for biliary colic, shows small hiatal hernia and gastritis. ASSESSMENT: Acute cholecystitis in a patient with endstage stage IV metastatic colorectal cancer with abdominal pain, now improved. Also with endometrial cysts, leukocytosis, anemia of chronic disease, intractable pain of cancer, ascites with anxiety. PLAN: For this patient after conversation with Dr. Pretty is to continue her present medical regimen as per consultants' recommendations. We will ask for consult by Dr. Dominguez, Renal, regarding her fluid balance. We will begin Aldactone 25 mg p.o. b.i.d. along with antibiotics as per Dr. Turk. We will cut back her fluid along with transfer to TCU in anticipation of reconditioning, continuation of IV antibiotics and eventual chemotherapy as per Dr. Pretty's protocols. Prognosis for this patient is guarded. We appreciate Dr. Stokes's input with no surgery recommended at present in this complex patient with a comprehensive medically necessary and appropriate visit carried out at the bedside in excess of 40 minutes [id number] time, discussing the patient's care at length along with the other consultants that were involved in her care. We will monitor clinically with labs. Mark Dennis MD
[2017-05-22] MEDS: metroNIDAZOLE IV 500 mg/100 ml 500 MG/100 ML BAG IVPB SCH ×3 (05:05→21:38)
[2017-05-22] MEDS: Pantoprazole 40 mg EC Tab PO SCH (05:05)
[2017-05-22] MEDS: Morphine 5 MG/ML SYRINGE IV PRN ×4 (05:05→21:56)
[2017-05-22 07:53] LABS: HEMOGLOBIN 9.6 g/dL (12.0-16.0); MEAN CELL VOLUME 85.1 fl (80.0-105.0); MEAN CORPUSCULAR HEMOGLOBIN 27.5 pg (25.0-35.0); MEAN CORPUSCULAR HGB CONC 32.3 g/dl (31.0-37.0); MEAN PLATELET VOLUME 8.4 fl (7.0-11.0); RBC 3.49 10^6/uL (3.5-6.1); RED CELL DISTRIBUTION WIDTH 19.3 % (11.5-14.5); WHITE BLOOD COUNT 12.4 10^3/ul (4.5-11.0)
[2017-05-22 08:12] LABS: ALB/GLOB RATIO 0.7 (1.1-1.8); ALBUMIN 2.5 g/dL (3.0-4.8); ALT/SGPT 27 U/L (7-56); AST/SGOT 98 U/L (14-36); BLOOD UREA NITROGEN 4 mg/dL (7-21); CALCIUM 7.6 mg/dL (8.4-10.5); GFR AFRICAN-AMERICAN > 60; GFR NON-AFRICAN AMERICAN > 60
[2017-05-22] MEDS: Sucralfate 1 gm/10 ml Oral Susp UD PO SCH (09:35)
[2017-05-22] MEDS: cefTRIAXone 1 gm 1 GM/100 ML BAG IVPB SCH (09:38)
[2017-05-22] MEDS ORDERED: POLYETHYLENE GLYCOL 3350 17 GM/Dose PACKET PO PRN (11:29)
--- NOTE | 2017-05-22 11:39 | CP.PCM.PN ---
Subjective - Date & Time of Evaluation Date of Evaluation: 05/22/17 Time of Evaluation: 11:36 - Subjective Subjective: Patient seen and examined at bedside. Patient states pain has improved from yesterday. She also feels hungry after being switched a liquid diet. Patient has not had a bowel movement in 2 days. Denies chest pain, shortness of breath, nausea, vomiting, diarrhea, fever, chills. Objective - Vital Signs/Intake and Output Vital Signs (last 24 hours): Temp Pulse Resp BP Pulse Ox 98 F 96 H 20 117/75 97 05/22/17 08:25 05/22/17 09:35 05/22/17 08:25 05/22/17 09:35 05/22/17 08:25 Intake and Output: 05/22/17 05/22/17 06:59 18:59 Intake Total 480 Balance 480 - Medications Medications: Current Medications Docusate Sodium (Colace) 100 mg PO BID [facility] Ergocalciferol (Drisdol 50,000 Intl Units Cap) 1 cap PO SUN [facility] Heparin Sodium (Porcine) (Heparin) 5,000 units SC Q12 [facility] PRN Reason: Protocol Last Admin: 05/22/17 09:35 Dose: 5,000 units Ceftriaxone Sodium (Rocephin 1 Gram Ivpb) 1 gm in 100 mls @ 100 mls/hr IVPB DAILY [facility] PRN Reason: Protocol Last Admin: 05/22/17 09:38 Dose: 100 mls/hr Metronidazole (Flagyl) 500 mg in 100 mls @ 100 mls/hr IVPB Q8 [facility] PRN Reason: Protocol Last Admin: 05/22/17 05:05 Dose: 100 mls/hr Sodium Chloride (Sodium Chloride 0.9%) 1,000 mls @ 50 mls/hr IV .Q20H [facility] Last Admin: 05/21/17 16:23 Dose: 50 mls/hr Lisinopril (Zestril) 2.5 mg PO DAILY [facility] Last Admin: 05/22/17 09:35 Dose: 2.5 mg Morphine Sulfate (Morphine) 2 mg IV Q4H PRN PRN Reason: Pain, severe (8-10) Last Admin: 05/22/17 05:05 Dose: 2 mg Ondansetron HCl (Zofran Inj) 4 mg IVP Q4H PRN PRN Reason: Nausea/Vomiting Pantoprazole Sodium (Protonix Ec Tab) 40 mg PO 0600 [facility] Last Admin: 05/22/17 05:05 Dose: 40 mg Polyethylene Glycol (Miralax) 17 gm PO DAILY [facility] PRN Reason: Constipation Spironolactone (Aldactone) 25 mg PO BID [facility] Last Admin: 05/22/17 09:35 Dose: 25 mg Sucralfate (Carafate Oral Susp) 1 gm PO BID [facility] Last Admin: 05/22/17 09:35 Dose: 1 gm Ursodiol (Actigall) 300 mg PO DAILY [facility] Last Admin: 05/22/17 09:35 Dose: 300 mg - Labs Labs: 05/22/17 07:50 05/22/17 07:50 PT 19.0 SECONDS (9.4-12.5) H 05/19/17 08:20 INR 1.64 (0.93-1.08) H 05/19/17 08:20 APTT 30.4 Seconds (25.1-36.5) 05/19/17 08:20 - Constitutional Appears: Non-toxic, No Acute Distress - Head Exam Head Exam: ATRAUMATIC, NORMAL INSPECTION, NORMOCEPHALIC - ENT Exam ENT Exam: Mucous Membranes Moist - Respiratory Exam Respiratory Exam: Clear to Ausculation Bilateral, NORMAL BREATHING PATTERN - Cardiovascular Exam Cardiovascular Exam: RRR, +S1, +S2 - GI/Abdominal Exam GI & Abdominal Exam: Distended, Soft, Tenderness (Diffuse, improved), Normal Bowel Sounds. absent: Guarding, Rebound - Extremities Exam Extremities Exam: Normal Inspection. absent: Calf Tenderness, Pedal Edema - Neurological Exam Neurological Exam: Alert, Awake, Oriented x3 Assessment and Plan - Assessment and Plan (Free Text) Plan: 61 y/o F with PMH of stage IV metastatic colorectal cancer presents with worsening abdominal pain. Patient currently has abdominal pain controlled by Morphine. Patient underwent endoscopy with EUS which showed cholelithiasis, mulitple liver mets, and gastritis. HIDA showed evidence for acute cholecystitis , Patient was evaluated by surgery and was not deemed fit for surgical intervention at this time. Patient was placed on Rocephin and Flagyl. Patient will have her diet advanced this morning and be evaluated for TCU for deconditioning. She may potentially receive chemotherapy in the TCU. Will continue to monitor closely. Plan discussed with Dr. Pretty. Geovani, PGY-2
[2017-05-22] MEDS: Sodium Chloride 0.9% 1,000 ML IV SCH (12:32)
--- NOTE | 2017-05-22 13:25 | CP.PCM.PN ---
<Cathi Meade - Last Filed: 05/22/17 13:23> Subjective - Date & Time of Evaluation Date of Evaluation: 05/22/17 Time of Evaluation: 10:05 - Subjective Subjective: Seen and examined at the bedside today, chart review. Patient notices a difference after starting antibiotics, she feels some improvment, abdominal pain still present but no increase in intensity. Tolerating liquid diet. No reports of fever or chills nausea, vomiting, or abdominal pain. No BM past 2 days. Objective - Vital Signs/Intake and Output Vital Signs (last 24 hours): Temp Pulse Resp BP Pulse Ox 98 F 96 H 20 117/75 97 05/22/17 08:25 05/22/17 09:35 05/22/17 08:25 05/22/17 09:35 05/22/17 08:25 Intake and Output: 05/22/17 05/22/17 06:59 18:59 Intake Total 480 Balance 480 - Medications Medications: Current Medications Docusate Sodium (Colace) 100 mg PO BID [facility] Last Admin: 05/22/17 12:28 Dose: 100 mg Ergocalciferol (Drisdol 50,000 Intl Units Cap) 1 cap PO SUN [facility] Heparin Sodium (Porcine) (Heparin) 5,000 units SC Q12 [facility] PRN Reason: Protocol Last Admin: 05/22/17 09:35 Dose: 5,000 units Ceftriaxone Sodium (Rocephin 1 Gram Ivpb) 1 gm in 100 mls @ 100 mls/hr IVPB DAILY [facility] PRN Reason: Protocol Last Admin: 05/22/17 09:38 Dose: 100 mls/hr Metronidazole (Flagyl) 500 mg in 100 mls @ 100 mls/hr IVPB Q8 [facility] PRN Reason: Protocol Last Admin: 05/22/17 05:05 Dose: 100 mls/hr Sodium Chloride (Sodium Chloride 0.9%) 1,000 mls @ 50 mls/hr IV .Q20H [facility] Last Admin: 05/22/17 12:32 Dose: 50 mls/hr Lisinopril (Zestril) 2.5 mg PO DAILY [facility] Last Admin: 05/22/17 09:35 Dose: 2.5 mg Morphine Sulfate (Morphine) 2 mg IV Q4H PRN PRN Reason: Pain, severe (8-10) Last Admin: 05/22/17 12:28 Dose: 2 mg Ondansetron HCl (Zofran Inj) 4 mg IVP Q4H PRN PRN Reason: Nausea/Vomiting Pantoprazole Sodium (Protonix Ec Tab) 40 mg PO 0600 [facility] Last Admin: 05/22/17 05:05 Dose: 40 mg Polyethylene Glycol (Miralax) 17 gm PO DAILY PRN PRN Reason: Constipation Last Admin: 05/22/17 12:28 Dose: 17 gm Spironolactone (Aldactone) 25 mg PO BID [facility] Last Admin: 05/22/17 09:35 Dose: 25 mg Sucralfate (Carafate Oral Susp) 1 gm PO BID [facility] Last Admin: 05/22/17 09:35 Dose: 1 gm Ursodiol (Actigall) 300 mg PO DAILY [facility] Last Admin: 05/22/17 09:35 Dose: 300 mg - Labs Labs: 05/22/17 07:50 05/22/17 07:50 PT 19.0 SECONDS (9.4-12.5) H 05/19/17 08:20 INR 1.64 (0.93-1.08) H 05/19/17 08:20 APTT 30.4 Seconds (25.1-36.5) 05/19/17 08:20 - Constitutional Appears: No Acute Distress - Eye Exam Eye Exam: Normal appearance. absent: Scleral icterus - ENT Exam ENT Exam: Mucous Membranes Moist - Neck Exam Neck Exam: Normal Inspection - Respiratory Exam Respiratory Exam: NORMAL BREATHING PATTERN. absent: Respiratory Distress - Cardiovascular Exam Cardiovascular Exam: +S1, +S2 - GI/Abdominal Exam GI & Abdominal Exam: Distended, Soft, Tenderness (mild tenderness on palpation) , Normal Bowel Sounds. absent: Guarding, Rebound - Extremities Exam Extremities Exam: Calf Tenderness. absent: Pedal Edema - Neurological Exam Neurological Exam: Alert, Awake, Oriented x3 - Skin Skin Exam: Dry, Warm Assessment and Plan - Assessment and Plan (Free Text) Assessment: ASSESSMENT: RUQ Abdminal Pain,, status post HIDA scan positive for cystic duct obstruction/ acute cholecystitis Cholelithiasis with sludge Dilated CBD Colon cancer with metastasis Anemia PLAN: advance soft low-fat low-cholesterol continue IV antibiotics Flagyl and ceftriaxone continue GI propyhlaxsis, on Protonix and Carafate monitor LFT DVT prophylaxsis On Actigall pain mgt. Start Colace twice a day and MiraLAX when necessary as per oncology conservative management for acute cholecystitis Evaluation for TCU Seen and discussed w/ Dr. Turk. <Joi Turk V - Last Filed: 05/26/17 19:36> Objective - Vital Signs/Intake and Output Vital Signs (last 24 hours): Temp Pulse Resp BP Pulse Ox 98.9 F 92 H 20 148/73 97 05/22/17 19:42 05/22/17 19:42 05/22/17 19:42 05/22/17 19:42 05/22/17 19:42 Intake and Output: 05/22/17 05/23/17 18:59 06:59 Intake Total 840 Balance 840 - Medications Medications: Current Medications Docusate Sodium (Colace) 100 mg PO BID [facility] Last Admin: 05/22/17 17:49 Dose: 100 mg Ergocalciferol (Drisdol 50,000 Intl Units Cap) 1 cap PO [facility] Heparin Sodium (Porcine) (Heparin) 5,000 units SC Q12 [facility] PRN Reason: Protocol Last Admin: 05/22/17 21:38 Dose: 5,000 units Ceftriaxone Sodium (Rocephin 1 Gram Ivpb) 1 gm in 100 mls @ 100 mls/hr IVPB DAILY [facility] PRN Reason: Protocol Last Admin: 05/22/17 09:38 Dose: 100 mls/hr Metronidazole (Flagyl) 500 mg in 100 mls @ 100 mls/hr IVPB Q8 [facility] PRN Reason: Protocol Last Admin: 05/22/17 21:38 Dose: 100 mls/hr Sodium Chloride (Sodium Chloride 0.9%) 1,000 mls @ 50 mls/hr IV .Q20H [facility] Last Admin: 05/22/17 12:32 Dose: 50 mls/hr Lisinopril (Zestril) 2.5 mg PO DAILY [facility] Last Admin: 05/22/17 09:35 Dose: 2.5 mg Morphine Sulfate (Morphine) 2 mg IV Q4H PRN PRN Reason: Pain, severe (8-10) Last Admin: 05/22/17 21:56 Dose: 2 mg Ondansetron HCl (Zofran Inj) 4 mg IVP Q4H PRN PRN Reason: Nausea/Vomiting Pantoprazole Sodium (Protonix Ec Tab) 40 mg PO 0600 [facility] Last Admin: 05/22/17 05:05 Dose: 40 mg Polyethylene Glycol (Miralax) 17 gm PO DAILY PRN PRN Reason: Constipation Last Admin: 05/22/17 12:28 Dose: 17 gm Spironolactone (Aldactone) 25 mg PO BID [facility] Last Admin: 05/22/17 17:49 Dose: 25 mg Sucralfate (Carafate Oral Susp) 1 gm PO BID [facility] Last Admin: 05/22/17 09:35 Dose: 1 gm Ursodiol (Actigall) 300 mg PO DAILY [facility] Last Admin: 05/22/17 09:35 Dose: 300 mg - Labs Labs: 05/22/17 16:40 05/22/17 07:50 PT 19.0 SECONDS (9.4-12.5) H 05/19/17 08:20 INR 1.64 (0.93-1.08) H 05/19/17 08:20 APTT 30.4 Seconds (25.1-36.5) 05/19/17 08:20 Attending/Attestation - Attestation I have personally seen and examined this patient.: Yes I have fully participated in the care of the patient.: Yes I have reviewed all pertinent clinical information, including history, physical exam and plan: Yes Notes (Text): This is an addendum to GI progress report dictated by Cathi Meade APN.The patient was seen and examined earlier. Medical records, lab studies, imagings were reviewed. Last 24 hours events reviewed. Agreed with the above treatment plan as outlined in Cathi Meade APN's notes the with the addition of the following On examination patient still has mild tenderness in the right upper quadrant area. No rebound or guarding Continue the antibiotics On laxatives for constipation Discussed with the surgical team. No plan for was surgical intervention 05/22/17 22:58
[2017-05-22 16:57] LABS: HEMOGLOBIN 10.3 g/dL (12.0-16.0); MEAN CORPUSCULAR HEMOGLOBIN 27.2 pg (25.0-35.0); MEAN CORPUSCULAR HGB CONC 31.7 g/dl (31.0-37.0); MEAN PLATELET VOLUME 8.6 fl (7.0-11.0); RBC 3.78 10^6/uL (3.5-6.1); RED CELL DISTRIBUTION WIDTH 19.1 % (11.5-14.5); WHITE BLOOD COUNT 14.1 10^3/ul (4.5-11.0)
--- NOTE | 2017-05-22 23:44 | CON ---
DATE: 05/22/2017 REASON FOR CONSULTATION: Hyponatremia. HISTORY OF PRESENTING ILLNESS: A 61-year-old lady, previously unknown to me, admitted because of complaints of abdominal pain, poor p.o. intake, dehydration. Patient has a history of colon cancer with liver mets. She has been receiving chemotherapy for her colon cancer. She reports that she was here in April with abdominal pain. She was found to have gallstones. She was also thought to have acute cholecystitis. She was treated with IV antibiotics and IV fluids. She was discharged home, but she continued to have abdominal pain. She has been having poor p.o. intake. She denies any nausea, vomiting, diarrhea. She denies any chest tightness. She denies any shortness of breath. PAST MEDICAL AND SURGICAL HISTORY: She has a stage IV colon cancer with liver mets; hypertension; endometriosis; history of FOLFIRI, Avastin, Xgeva. FAMILY HISTORY: Noncontributory. SOCIAL HISTORY: No smoking, no alcohol use, no IV drug abuse. ALLERGIES: NO KNOWN DRUG ALLERGIES. MEDICATIONS: Actigall, Aldactone 25 b.i.d., Carafate, Colace, Drisdol, Flagyl 500 q. 8, heparin, MiraLax, morphine, Protonix, Rocephin 1 g daily, normal saline at 50, Zestril 2.5, Zofran. REVIEW OF SYSTEMS: All systems are reviewed, pertinent positives as mentioned in history of present illness, rest unremarkable. PHYSICAL EXAMINATION: GENERAL: Elderly lady, sitting in bed. VITAL SIGNS: Blood pressure 117/75, heart rate 96, respiratory rate 20, temperature 98. HEENT: Normocephalic, atraumatic, positive pallor. NECK: Supple, no JVD. LUNGS: Bilateral equal entry, no rales. CARDIAC: S1 and S2, regular rate and rhythm, no murmur, no rub. ABDOMEN: Distended, soft, tenderness in the right upper quadrant, bowel sounds present. EXTREMITIES: No lower extremity edema. LABORATORY DATA: WBC 12.4, hemoglobin 9.6, hematocrit 30, platelets 204. Sodium 133, potassium 4.1, chloride 106, CO2 23, BUN 4, creatinine 0.4, glucose 93, calcium 7.6, phosphorus not checked, albumin 2.5, corrected calcium 8.6, total bili 1.8. ASSESSMENT: 1. Mild hyponatremia, currently, patient appears euvolemic, suspect syndrome of inappropriate antidiuretic hormone secretion. 2. Stage IV colon cancer with liver metastases. 3. Elevated liver function tests. 4. Acute cholecystitis. 5. Gallstones. PLAN: 1. Continue normal saline at 50 mL/hour. 2. Continue low-dose PAKO inhibitor. 3. Push p.o. intake. 4. Continue antibiotics for acute cholecystitis. 5. Avoid nephrotoxins. 6. Monitor daily labs. 7. Check urine sodium, urine osmolality, serum uric acid. Thank you for the courtesy of this consultation. We will follow this patient as needed. Valeria Dominguez MD
[2017-05-23] MEDS: Morphine 5 MG/ML SYRINGE IV PRN ×3 (03:07→22:04)
[2017-05-23] MEDS: metroNIDAZOLE IV 500 mg/100 ml 500 MG/100 ML BAG IVPB SCH ×3 (05:14→22:04)
[2017-05-23] MEDS: Pantoprazole 40 mg EC Tab PO SCH (05:14)
[2017-05-23 06:28] LABS: ALB/GLOB RATIO 0.7 (1.1-1.8); ALBUMIN 2.6 g/dL (3.0-4.8); ALT/SGPT 34 U/L (7-56); AST/SGOT 87 U/L (14-36); BLOOD UREA NITROGEN 5 mg/dL (7-21); CALCIUM 7.8 mg/dL (8.4-10.5); GFR AFRICAN-AMERICAN > 60; GFR NON-AFRICAN AMERICAN > 60
[2017-05-23 06:57] LABS: HEMOGLOBIN 9.9 g/dL (12.0-16.0); MEAN CELL VOLUME 84.8 fl (80.0-105.0); MEAN CORPUSCULAR HEMOGLOBIN 27.4 pg (25.0-35.0); MEAN CORPUSCULAR HGB CONC 32.4 g/dl (31.0-37.0); MEAN PLATELET VOLUME 8.6 fl (7.0-11.0); RBC 3.61 10^6/uL (3.5-6.1); RED CELL DISTRIBUTION WIDTH 19.2 % (11.5-14.5); WHITE BLOOD COUNT 12.6 10^3/ul (4.5-11.0)
[2017-05-23] MEDS: Sucralfate 1 gm/10 ml Oral Susp UD PO SCH ×2 (09:27→17:40)
[2017-05-23] MEDS: cefTRIAXone 1 gm 1 GM/100 ML BAG IVPB SCH (09:27)
[2017-05-23 13:26] LABS: OSMOLALITY,URINE 553 mosm/kg (300-1000)
--- NOTE | 2017-05-23 17:59 | PN ---
DATE: 05/23/2017 SUBJECTIVE: The patient is seen sitting up in bed. She is awake. She is alert. She is comfortable. PHYSICAL EXAMINATION GENERAL: Elderly lady sitting in bed. VITAL SIGNS: Blood pressure 115/68, heart rate 95, respiratory rate 20, temperature 97.9. HEENT: Normocephalic, atraumatic. NECK: Supple, no JVD. LUNGS: Bilateral equal air entry, no rales. CARDIAC: S1 and S2, regular rate and rhythm, no murmur, no rub. ABDOMEN: Distended, soft, tenderness in the right upper quadrant. Bowel sounds present. EXTREMITIES: No lower extremity edema. LABORATORY DATA: WBC 12.6, hemoglobin 9.9, hematocrit 30.6, platelets 227. Sodium 134, potassium 4.0, chloride 104, CO2 of 21, BUN 5, creatinine 0.4, glucose 90, calcium 7.8, total bili 1.5, AST is 87, ALT 34. Urine sodium 111, uric acid 2.6. CURRENT MEDICATIONS: Actigall, Aldactone 25 b.i.d., Carafate, Colace, Drisdol, Flagyl, heparin, MiraLax, morphine, Protonix, ceftriaxone 1 g daily, normal saline at 50, lisinopril 2.5 daily, Zofran. ASSESSMENT: 1. Acute cholecystitis. 2. Colon cancer with metastases. 3. Hypertension. 4. Mild hyponatremia. PLAN: 1. Continue low-dose normal saline. 2. Continue antibiotics as per ID recommendations. 3. Advance diet. Valeria Dominguez MD
[2017-05-24] MEDS: Morphine 5 MG/ML SYRINGE IV PRN ×4 (01:06→21:02)
--- NOTE | 2017-05-24 02:23 | PN ---
DATE:05/23/2017 SUBJECTIVE: This patient was seen and evaluated earlier today. Patient was feeling better. Right upper quadrant abdominal discomfort has significantly improved. Tolerating the diet. PHYSICAL EXAMINATION: VITAL SIGNS: Temperature is 98.4, pulse 93, blood pressure is 118/68. HEENT: Atraumatic, anicteric. NECK: Supple. HEART: S1 and S2 heard. LUNGS: Bilateral air entry present. ABDOMEN: Soft. There is significant improvement of the tenderness in the right lower quadrant present. EXTREMITIES: No cyanosis. No clubbing. NEUROLOGIC: Alert and oriented. Moves all the extremities. LABORATORY DATA: Hemoglobin 9.9, hematocrit 30.6, WBC is 12.6, platelets 227. Chemistries showed total bilirubin 1.5, AST 87, ALT 34, alkaline phosphatase 222. IMPRESSION: This is a 61-year-old patient with metastatic colon carcinoma, has a gallstone, admitted with worsening of the right upper quadrant pain, clinically suggestive of acute cholecystitis, and non-visualized gallbladder; however, the patient also was found to have mesenteric caking and some ascites, possibility for advanced metastatic disease. The patient is being also evaluated by Dr. Stokes, the surgeon, and recommended conservative management. This was discussed with the patient, also with Dr. Pretty. The plan is to continue the antibiotics, complete full course and clinically observe the patient. If any further worsening of the symptoms and no clinical improvement, then there are other options to be considered including Interventional Radiology guided drainage of the gallbladder versus surgery; but, at the present time, clinically patient appears to be improving with antibiotic therapy. Her other comorbidities include dyslipidemia. Thank you very much for allowing us to participate in the care of your patient. Jio Turk MD JOE
[2017-05-24] MEDS: Sodium Chloride 0.9% 1,000 ML IV SCH ×2 (02:52→04:15)
[2017-05-24] MEDS: metroNIDAZOLE IV 500 mg/100 ml 500 MG/100 ML BAG IVPB SCH ×3 (05:09→21:03)
[2017-05-24] MEDS: Pantoprazole 40 mg EC Tab PO SCH (05:10)
[2017-05-24 05:57] LABS: ALB/GLOB RATIO 0.7 (1.1-1.8); ALBUMIN 2.7 g/dL (3.0-4.8); ALT/SGPT 30 U/L (7-56); AST/SGOT 85 U/L (14-36); BLOOD UREA NITROGEN 5 mg/dL (7-21); GFR AFRICAN-AMERICAN > 60; GFR NON-AFRICAN AMERICAN > 60
[2017-05-24 06:00] LABS: HEMOGLOBIN 10.2 g/dL (12.0-16.0); MEAN CELL VOLUME 83.9 fl (80.0-105.0); MEAN CORPUSCULAR HEMOGLOBIN 27.3 pg (25.0-35.0); MEAN CORPUSCULAR HGB CONC 32.6 g/dl (31.0-37.0); MEAN PLATELET VOLUME 8.6 fl (7.0-11.0); RBC 3.73 10^6/uL (3.5-6.1); RED CELL DISTRIBUTION WIDTH 19.3 % (11.5-14.5); WHITE BLOOD COUNT 12.4 10^3/ul (4.5-11.0)
[2017-05-24] MEDS ORDERED: Ergocalciferol 50,000 Intl Units Cap PO SCH (10:00)
[2017-05-24] MEDS: Ergocalciferol 50,000 Intl Units Cap PO SCH (10:16)
[2017-05-24] MEDS: Sucralfate 1 gm/10 ml Oral Susp UD PO SCH ×2 (10:16→17:41)
[2017-05-24] MEDS: cefTRIAXone 1 gm 1 GM/100 ML BAG IVPB SCH (10:17)
[2017-05-25] MEDS: Morphine 5 MG/ML SYRINGE IV PRN (03:39)
[2017-05-25] MEDS: Pantoprazole 40 mg EC Tab PO SCH (05:48)
[2017-05-25] MEDS: metroNIDAZOLE IV 500 mg/100 ml 500 MG/100 ML BAG IVPB SCH ×3 (05:48→22:02)
[2017-05-25 06:49] LABS: ALB/GLOB RATIO 0.7 (1.1-1.8); ALBUMIN 2.5 g/dL (3.0-4.8); ALT/SGPT 29 U/L (7-56); AST/SGOT 77 U/L (14-36); BLOOD UREA NITROGEN 4 mg/dL (7-21); GFR AFRICAN-AMERICAN > 60; GFR NON-AFRICAN AMERICAN > 60
[2017-05-25] MEDS: Sodium Chloride 0.9% 1,000 ML IV SCH (08:21)
[2017-05-25 09:01] LABS: HEMOGLOBIN 10.9 g/dL (12.0-16.0); MEAN CELL VOLUME 83.4 fl (80.0-105.0); MEAN CORPUSCULAR HEMOGLOBIN 27.4 pg (25.0-35.0); MEAN CORPUSCULAR HGB CONC 32.8 g/dl (31.0-37.0); MEAN PLATELET VOLUME 8.6 fl (7.0-11.0); RBC 3.98 10^6/uL (3.5-6.1); RED CELL DISTRIBUTION WIDTH 19.1 % (11.5-14.5); WHITE BLOOD COUNT 13.2 10^3/ul (4.5-11.0)
[2017-05-25] MEDS: cefTRIAXone 1 gm 1 GM/100 ML BAG IVPB SCH (09:57)
[2017-05-25] MEDS: Sucralfate 1 gm/10 ml Oral Susp UD PO SCH ×2 (09:59→17:55)
[2017-05-25] MEDS: Morphine 5 MG/ML SYRINGE IVP PRN ×2 (10:06→16:26)
--- NOTE | 2017-05-25 10:12 | CP.PCM.PN ---
Subjective - Date & Time of Evaluation Date of Evaluation: 05/25/17 Time of Evaluation: 10:09 - Subjective Subjective: Patient seen and examined at bedside. Patient states she has intermittent bouts of severe abdominal pain. She has been placed back on a regular diet, but continues to complain of early satiety. Last bowel movement was yesterday. Denies chest pain, shortness of breath, nausea, vomiting, diarrhea, fever, chills. Objective - Vital Signs/Intake and Output Vital Signs (last 24 hours): Temp Pulse Resp BP Pulse Ox 97.9 F 85 20 117/68 97 05/25/17 08:27 05/25/17 09:57 05/25/17 08:27 05/25/17 09:57 05/25/17 08:27 Intake and Output: 05/25/17 05/25/17 06:59 18:59 Intake Total 660 Balance 660 - Medications Medications: Current Medications Docusate Sodium (Colace) 100 mg PO BID [facility] Last Admin: 05/25/17 09:59 Dose: 100 mg Ergocalciferol (Drisdol 50,000 Intl Units Cap) 1 cap PO SUN [facility] Last Admin: 05/24/17 10:16 Dose: 1 cap Famciclovir (Famvir) 500 mg PO BID [facility] Last Admin: 05/25/17 09:59 Dose: 500 mg Heparin Sodium (Porcine) (Heparin) 5,000 units SC Q12 [facility] PRN Reason: Protocol Last Admin: 05/25/17 09:59 Dose: 5,000 units Ceftriaxone Sodium (Rocephin 1 Gram Ivpb) 1 gm in 100 mls @ 100 mls/hr IVPB DAILY [facility] PRN Reason: Protocol Last Admin: 05/25/17 09:57 Dose: 100 mls/hr Metronidazole (Flagyl) 500 mg in 100 mls @ 100 mls/hr IVPB Q8 [facility] PRN Reason: Protocol Last Admin: 05/25/17 05:48 Dose: 100 mls/hr Sodium Chloride (Sodium Chloride 0.9%) 1,000 mls @ 50 mls/hr IV .Q20H [facility] Last Admin: 05/25/17 08:21 Dose: Not Given Lisinopril (Zestril) 2.5 mg PO DAILY [facility] Last Admin: 05/25/17 09:57 Dose: 2.5 mg Morphine Sulfate (Morphine) 2 mg IVP Q4H PRN PRN Reason: Pain, severe (8-10) Last Admin: 05/25/17 10:06 Dose: 2 mg Ondansetron HCl (Zofran Inj) 4 mg IVP Q4H PRN PRN Reason: Nausea/Vomiting Pantoprazole Sodium (Protonix Ec Tab) 40 mg PO 0600 [facility] Last Admin: 05/25/17 05:48 Dose: 40 mg Polyethylene Glycol (Miralax) 17 gm PO DAILY PRN PRN Reason: Constipation Last Admin: 05/22/17 12:28 Dose: 17 gm Spironolactone (Aldactone) 25 mg PO BID [facility] Last Admin: 05/25/17 09:59 Dose: 25 mg Sucralfate (Carafate Oral Susp) 1 gm PO BID [facility] Last Admin: 05/25/17 09:59 Dose: 1 gm Ursodiol (Actigall) 300 mg PO DAILY [facility] Last Admin: 05/25/17 10:00 Dose: 300 mg - Labs Labs: 05/25/17 08:45 05/25/17 06:15 PT 19.0 SECONDS (9.4-12.5) H 05/19/17 08:20 INR 1.64 (0.93-1.08) H 05/19/17 08:20 APTT 30.4 Seconds (25.1-36.5) 05/19/17 08:20 - Constitutional Appears: Non-toxic, No Acute Distress - Head Exam Head Exam: ATRAUMATIC, NORMAL INSPECTION, NORMOCEPHALIC - ENT Exam ENT Exam: Mucous Membranes Moist - Respiratory Exam Respiratory Exam: Clear to Ausculation Bilateral, NORMAL BREATHING PATTERN - Cardiovascular Exam Cardiovascular Exam: RRR, +S1, +S2 - GI/Abdominal Exam GI & Abdominal Exam: Distended, Soft, Tenderness (Diffuse), Normal Bowel Sounds. absent: Guarding, Rebound - Extremities Exam Extremities Exam: Normal Inspection. absent: Calf Tenderness, Pedal Edema - Neurological Exam Neurological Exam: Alert, Awake, Oriented x3 - Psychiatric Exam Psychiatric exam: Normal Affect, Normal Mood - Skin Skin Exam: Intact, Normal Color, Warm Assessment and Plan - Assessment and Plan (Free Text) Plan: 61 y/o F with PMH of stage IV metastatic colorectal cancer presents with worsening abdominal pain. Patient currently has abdominal pain exacerbations controlled by Morphine. Patient initially underwent endoscopy with EUS which showed cholelithiasis, mulitple liver mets, and gastritis. HIDA showed evidence for acute cholecystitis. Patient was evaluated by surgery and was not deemed fit for surgical intervention at this time. Patient was placed on Rocephin and Flagyl where she continues to improve, leukocytosis stable at this time. Patient not accepted to TCU. Will obtain ID consult.. She may potentially receive chemotherapy in the TCU. Will continue to monitor closely. Plan discussed with Dr. Pretty. Geovani, PGY-2
--- NOTE | 2017-05-25 10:22 | PN ---
DATE: 05/24/2017 ONCOLOGY PROGRESS NOTE SUBJECTIVE: This 61-year-old female who was admitted to the hospital with worsening right upper quadrant pain associated with abdominal cramps, nausea and vomiting, inability to keep food down, who was admitted with clinical signs of cholelithiasis/acute cholecystitis. Currently on IV antibiotics and gradually improving, with nuclear medicine scan suggestive of acute cholecystitis. REVIEW OF SYSTEMS: Patient has been complaining of intermittent abdominal cramps. No significant nausea. Patient has growling sensations in the belly, but has had several bowel movements since she got Relistor yesterday, and has inability to keep food down. She has been watching what she is eating. Overall, still feels very cold when she tries to take any liquids down or any semi-solids down at this point in time. Patient feels the belly is distended. No fevers. No chills. PHYSICAL EXAMINATION: VITAL SIGNS: Patient's vital signs are stable as stated in the chart. Patient is examined by the bedside. She is sitting out of bed in the chair. T-max is 98.4, pulse rate of 95, blood pressure is 114/71, respiration 20 per minute, O2 sat is 97% on room air. Patient is afebrile at this point. HEENT: Head is normocephalic and atraumatic. Conjunctivae pale. Sclerae are anicteric. Pupils are equally reactive to light and accommodation. Examination of the oropharynx reveals no oropharyngeal lesion. Tongue is moist. No ulcerations are noted. NECK: Supple. There is no adenopathy. No jugular venous distention is noted. LUNGS: Clear to percussion and auscultation. CARDIOVASCULAR SYSTEM: Reveals S1 and S2 to be normal. No gallop or murmurs heard. ABDOMEN: Mildly distended. Patient has shifting dullness and ascites as listed above, on physical exam. Patient is complaining of right upper quadrant tenderness on deep palpation; but no rebound, rigidity, or guarding is noted. EXTREMITIES: Reveal no cyanosis, clubbing, or edema. GENITOURINARY AND RECTAL: Deferred. NEUROLOGIC: Higher function reveals no focal deficit on neurologic exam. LYMPH: There is no evidence of adenopathy in the neck, axilla, or groin. MEDICATIONS: Patient's medication was reviewed. She is on Ursodiol 300 mg daily, Aldactone 25 b.i.d., Carafate 1 g b.i.d., Colace 100 b.i.d., vitamin D one capsule on Thursday, Famvir 500 mg p.o. b.i.d., which was started recently for her herpes simplex infection, she is on metronidazole 500 mg IV q. 8 hours. She is on heparin 5000 units subcu q. 12 hours. She is on MiraLax 17 g p.o. daily. She is on morphine sulfate 2 mg IV q.4h. p.r.n., Protonix 40 mg p.o. daily, Rocephin 1 g IV daily. She is on IV fluids at 50 mL an hour. She is on Zestril 2.5 mg daily, ondansetron 4 mg IV q.4h. p.r.n. for nausea and vomiting. LABORATORY DATA: Reviewed and following. Patient's white count is 12.4, hemoglobin 10.2, hematocrit 31, platelet count is 270,000. Sodium is 139, K is 3.8, chloride is 105, CO2 is 20, BUN is 5, creatinine is 0.4, calcium is 8, total bili is 1.6, AST is 85, AST is 30, alkaline phosphatase is 229. Total protein is 6.5, albumin is 2.7. A/G ratio is 0.7. ASSESSMENT NOTES AND PLAN: Patient has stage IV metastatic carcinoma of the colon, on systemic chemotherapy. Initially, FOLFOX-6, then on Folfiri plus Avastin, more recently being assessed for a new drug called Stivarga. Has been admitted at least 2 times now with increasing and worsening right upper quadrant pain. Signs and symptoms suggestive of cholecystitis, and based on that, patient has been treated on broad-spectrum antibiotics. Her white count had been gradually shifting down, and is now down to 12.4. At one time the white count was high at 17,000 on 05/19/2017. I had a long discussion with the patient. Plan is at this point in time, in view of the metastatic colon cancer, even with mets in the caudate lobe of the liver which is pressing on the cystic duct and causing and worsening the symptoms of cholelithiasis, surgeon is reluctant to have the surgery done on her at this point in time. Our best plan would be to treat her with antibiotics and then go on with systemic chemotherapy to have some impact on the tumor. If she progressively worsens at this point in time, we would have to discuss about doing a laparoscopic cholecystectomy versus cholecystotomy with a drainage catheter. Either one may be difficult to do in view of the fact that she has metastatic disease, but more importantly, right now it is a catch-22 of what should be done first, and our clinical feeling and assessment at this point is that we should let the gallbladder cool down with the IV antibiotics and then initiate chemotherapy sooner it is feasible. Plan is to see if I can transfer her to the TCU and then give her the trial systemic therapy, or once the fever is down, she is on day #4, going on to day #5 of IV antibiotics, switch her to p.o. antibiotics and then plan treatments as an outpatient in the Oncology clinic. We do not have very many choices, as the cancer is progressing and she is off treatment now for several weeks. Patient is quite understanding of all the facts that are currently in place and she is willing to fight it as best as we can. Routine post-exam instructions have been given to the patient. Time spent with the patient is more than 80 minutes, out of which 50% of the time was spent in [id number] contact, discussing with the patient of her options, and she wished to proceed. Thalia Pretty MD
--- NOTE | 2017-05-25 12:46 | CP.PCM.CON ---
History of Present Illness - History of Present Illness History of Present Illness: 61 year old female with PMH of colonic malignancy with liver metastases, endometriosis, uterine fibroids S/P removal came in to [facility] complaining of worsening abdominal pain for about a week. Work up revealed positive HIDA scan and patient is being treated conservatively for acute cholecystitis. Surgery has seen her and is deemed a poor surgical candidate. Infectious diseases consult is requested to further evaluate and manage. She is not complaining of fever or chills currently, abdominal pain is better, no nausea or vomiting, no chest pain, no sore throat, no rhinorrhea, no diarrhea, no dysuria, no headache or dizziness. Review of Systems - Review of Systems All systems: reviewed and no additional remarkable complaints except (as per HPI ) Past Patient History - Infectious Disease Hx of Infectious Diseases: None - Tetanus Immunizations Tetanus Immunization: Unknown - Past Medical History & Family History Past Medical History?: Yes - Past Social History Smoking Status: Never Smoked - CARDIAC Hx Cardiac Disorders: Yes Hx Hypertension: Yes - PULMONARY Hx Respiratory Disorders: No - NEUROLOGICAL Hx Neurological Disorder: No - HEENT Hx HEENT Problems: No - RENAL Hx Chronic Kidney Disease: Yes Hx Kidney Stones: Yes - ENDOCRINE/METABOLIC Hx Endocrine Disorders: No - HEMATOLOGICAL/ONCOLOGICAL Hx Blood Transfusions: Yes Hx Blood Transfusion Reaction: No - INTEGUMENTARY Hx Dermatological Problems: No - MUSCULOSKELETAL/RHEUMATOLOGICAL Hx Falls: No - GASTROINTESTINAL Hx Gastrointestinal Disorders: Yes (colon ca) Other/Comment: liver/colon ca on chemo. HX BLOOD TRANSFUSION - GENITOURINARY/GYNECOLOGICAL Hx Genitourinary Disorders: Yes Other/Comment: fibroids, endometriosis - PSYCHIATRIC Hx Psychophysiologic Disorder: No Hx Depression: No Hx Emotional Abuse: No Hx Physical Abuse: No Hx Substance Use: No - SURGICAL HISTORY Hx Surgeries: Yes (PORT,LAPARTOTOMY,) - ANESTHESIA Hx Anesthesia Reactions: No Hx Malignant Hyperthermia: No Meds Allergies/Adverse Reactions: Allergies Allergy/AdvReac Type Severity Reaction Status Date / Time montano Allergy Intermediate URTICARIA Uncoded 05/19/17 12:02 - Medications Medications: Current Medications Docusate Sodium (Colace) 100 mg PO BID [facility] Last Admin: 05/25/17 09:59 Dose: 100 mg Ergocalciferol (Drisdol 50,000 Intl Units Cap) 1 cap PO SUN [facility] Last Admin: 05/24/17 10:16 Dose: 1 cap Famciclovir (Famvir) 500 mg PO BID [facility] Last Admin: 05/25/17 09:59 Dose: 500 mg Heparin Sodium (Porcine) (Heparin) 5,000 units SC Q12 [facility] PRN Reason: Protocol Last Admin: 05/25/17 09:59 Dose: 5,000 units Ceftriaxone Sodium (Rocephin 1 Gram Ivpb) 1 gm in 100 mls @ 100 mls/hr IVPB DAILY [facility] PRN Reason: Protocol Stop: 05/26/17 10:59 Last Admin: 05/25/17 09:57 Dose: 100 mls/hr Metronidazole (Flagyl) 500 mg in 100 mls @ 100 mls/hr IVPB Q8 [facility] PRN Reason: Protocol Last Admin: 05/25/17 05:48 Dose: 100 mls/hr Sodium Chloride (Sodium Chloride 0.9%) 1,000 mls @ 50 mls/hr IV .Q20H [facility] Last Admin: 05/25/17 08:21 Dose: Not Given Lisinopril (Zestril) 2.5 mg PO DAILY [facility] Last Admin: 05/25/17 09:57 Dose: 2.5 mg Morphine Sulfate (Morphine) 2 mg IVP Q4H PRN PRN Reason: Pain, severe (8-10) Last Admin: 05/25/17 10:06 Dose: 2 mg Ondansetron HCl (Zofran Inj) 4 mg IVP Q4H PRN PRN Reason: Nausea/Vomiting Pantoprazole Sodium (Protonix Ec Tab) 40 mg PO 0600 [facility] Last Admin: 05/25/17 05:48 Dose: 40 mg Polyethylene Glycol (Miralax) 17 gm PO DAILY PRN PRN Reason: Constipation Last Admin: 05/22/17 12:28 Dose: 17 gm Spironolactone (Aldactone) 25 mg PO BID [facility] Last Admin: 05/25/17 09:59 Dose: 25 mg Sucralfate (Carafate Oral Susp) 1 gm PO BID [facility] Last Admin: 05/25/17 09:59 Dose: 1 gm Ursodiol (Actigall) 300 mg PO DAILY [facility] Last Admin: 05/25/17 10:00 Dose: 300 mg Physical Exam - Constitutional Appears: Chronically Ill - Head Exam Head Exam: NORMAL INSPECTION - ENT Exam ENT Exam: Mucous Membranes Moist - Neck Exam Neck exam: Negative for: Meningismus - Respiratory Exam Respiratory Exam: Decreased Breath Sounds - Cardiovascular Exam Cardiovascular Exam: +S1, +S2 - GI/Abdominal Exam GI & Abdominal Exam: Soft. absent: Tenderness Results - Vital Signs Recent Vital Signs: Last Vital Signs Temp 97.9 F 05/25/17 08:27 Pulse 85 05/25/17 09:57 Resp 20 05/25/17 08:27 BP 117/68 05/25/17 09:57 Pulse Ox 97 05/25/17 08:27 - Labs Result Diagrams: 05/25/17 08:45 05/25/17 06:15 Labs: Laboratory Results - last 24 hr 05/25/17 05/25/17 06:15 08:45 WBC 13.2 H RBC 3.98 Hgb 10.9 L Hct 33.2 L MCV 83.4 MCH 27.4 MCHC 32.8 RDW 19.1 H Plt Count 281 MPV 8.6 Sodium 135 Potassium 3.8 Chloride 105 Carbon Dioxide 22 Anion Gap 12 BUN 4 L Creatinine 0.4 L Est GFR ( Amer) > 60 Est GFR (Non-Af Amer) > 60 Random Glucose 93 Calcium 8.0 L Total Bilirubin 1.2 AST 77 H ALT 29 Alkaline Phosphatase 215 H Total Protein 6.1 Albumin 2.5 L Globulin 3.6 Albumin/Globulin Ratio 0.7 L Assessment & Plan - Assessment and Plan (Free Text) Plan: Assessment acute cholecystitis, slowly improving with conservative therapy colonic malignancy with liver metastases endometriosis uterine fibroids S/P removal Plan continue Rocephin and Flagyl and will continue to observe overall prognosis is poor
--- NOTE | 2017-05-25 19:54 | PN ---
DATE: 05/25/2017 SUBJECTIVE: The patient is seen sitting up in bed. She is awake. She is alert. She complains of poor appetite. She complains of early satiety. She complains of constipation. PHYSICAL EXAMINATION: GENERAL: Elderly lady sitting in bed. VITAL SIGNS: Blood pressure 117/68, heart rate 85, respiratory rate 20, temperature 97.9. HEENT: Normocephalic, atraumatic, positive pallor. NECK: Supple, no JVD. LUNGS: Bilateral equal air entry, bilateral equal expansion. CARDIAC: S1 and S2, regular rate and rhythm, no murmur, no rub. ABDOMEN: Distended, soft, firm, bowel sounds present. EXTREMITIES: A 2+ pitting edema of the lower extremities. INTAKE AND OUTPUT: Not charted. LABORATORY DATA: WBC 13, hemoglobin 10.9, hematocrit 33, platelets 281. Sodium 135, potassium 3.8, chloride 105, CO2 of 22, BUN 4, creatinine 0.4, glucose 93, calcium 8.0. Total bili 1.2. AST 77, ALT 29. CURRENT MEDICATIONS: Actigall, Aldactone 25 b.i.d., Carafate, Colace, Drisdol, Famvir, Flagyl, heparin, MiraLax, morphine, Protonix, Rocephin, normal saline at 50, Zestril 2.5, and Zofran. ASSESSMENT: 1. Acute cholecystitis. 2. History of colon cancer with liver metastasis. 3. Mild hyponatremia. 4. Ascites/edema. PLAN 1. Agree with discontinuation of IV fluids. 2. Restart diuretics. 3. Continue antibiotics as per ID recommendations. 4. Advance diet as per GI recommendations Valeria Dominguez MD
[2017-05-25] MEDS: Morphine 2 mg/ml ISec IVP PRN (22:50)
[2017-05-26] MEDS: Sodium Chloride 0.9% 1,000 ML IV SCH (02:25)
[2017-05-26] MEDS: Morphine 2 mg/ml ISec IVP PRN ×5 (02:26→21:27)
--- NOTE | 2017-05-26 02:28 | PN ---
DATE05/25/2017: SUBJECTIVE: This patient was seen and evaluated earlier today. Patient has some abdominal bloating and discomfort now. Complains of constipation. Right upper quadrant discomfort has significantly improved compared to before. PHYSICAL EXAMINATION VITAL SIGNS: Temperature is 97.5, blood pressure is 130/73, pulse 86, respirations 18, O2 saturation 97%.. HEENT: Atraumatic, anicteric. NECK: Supple. HEART: S1 and S2 heard. LUNGS: Bilateral air entry present. ABDOMEN: softly distended. There is mild tenderness in the right upper quadrant area. Patient does complain of some cramping abdominal discomfort, bloating. IMPRESSION: This is a 61-year-old patient with metastatic colon carcinoma with liver metastasis and gallstones clinically, at present what appears to be like acute cholecystitis. Patient has been on IV antibiotics. Patient has ascites and also mesenteric involvement. Patient has been followed by the Surgery. No plan for surgical intervention currently in view of the findings above. Patient appears to be clinically improving. The abdominal bloating and cramping could be related to constipation also. Patient has been on narcotics. The patient is on IV antibiotics. Would give the patient a dose of Relistor for narcotic induced constipation. Continue the antibiotics for cholecystitis. Patient appear to be clinically improving regarding to the cholecystitis. Thank you very much for allowing us to participate in the care of your patient. Joi Turk MD JOE
[2017-05-26] MEDS: Pantoprazole 40 mg EC Tab PO SCH (05:40)
[2017-05-26] MEDS: metroNIDAZOLE IV 500 mg/100 ml 500 MG/100 ML BAG IVPB SCH ×3 (05:40→21:26)
[2017-05-26 07:06] LABS: ALB/GLOB RATIO 0.7 (1.1-1.8); ALBUMIN 2.6 g/dL (3.0-4.8); ALT/SGPT 33 U/L (7-56); AST/SGOT 94 U/L (14-36); BLOOD UREA NITROGEN 3 mg/dL (7-21); CALCIUM 8.1 mg/dL (8.4-10.5); GFR AFRICAN-AMERICAN > 60; GFR NON-AFRICAN AMERICAN > 60
[2017-05-26 07:54] LABS: MEAN CELL VOLUME 83.6 fl (80.0-105.0); MEAN CORPUSCULAR HEMOGLOBIN 27.4 pg (25.0-35.0); MEAN CORPUSCULAR HGB CONC 32.8 g/dl (31.0-37.0); MEAN PLATELET VOLUME 8.8 fl (7.0-11.0); RBC 3.65 10^6/uL (3.5-6.1); RED CELL DISTRIBUTION WIDTH 19.3 % (11.5-14.5)
[2017-05-26] MEDS: cefTRIAXone 1 gm 1 GM/100 ML BAG IVPB SCH (09:45)
[2017-05-26] MEDS: Sucralfate 1 gm/10 ml Oral Susp UD PO SCH ×2 (09:46→17:42)
--- NOTE | 2017-05-26 11:58 | CP.PCM.PN ---
<Cathi Meade - Last Filed: 05/26/17 12:17> Subjective - Date & Time of Evaluation Date of Evaluation: 05/26/17 Time of Evaluation: 10:30 - Subjective Subjective: Seen and examined at the bedside earlier today, chart review. Patient given a dose of Relistor yesterday and had a formed bowel movement, denies any melena or bright red blood per rectum. Patient still experiences abdominal discomfort mostly in the right upper quadrant mainly at night, takes morphine when necessary. No reports of nausea, vomiting, fever or chills. Objective - Vital Signs/Intake and Output Vital Signs (last 24 hours): Temp Pulse Resp BP Pulse Ox 100 F H 87 20 131/83 95 05/26/17 08:18 05/26/17 09:45 05/26/17 08:18 05/26/17 09:45 05/26/17 08:18 Intake and Output: 05/26/17 05/26/17 06:59 18:59 Intake Total 480 240 Balance 480 240 - Medications Medications: Current Medications Docusate Sodium (Colace) 100 mg PO BID [facility] Last Admin: 05/26/17 09:46 Dose: 100 mg Ergocalciferol (Drisdol 50,000 Intl Units Cap) 1 cap PO SUN [facility] Last Admin: 05/24/17 10:16 Dose: 1 cap Famciclovir (Famvir) 500 mg PO BID [facility] Last Admin: 05/26/17 09:46 Dose: 500 mg Heparin Sodium (Porcine) (Heparin) 5,000 units SC Q12 [facility] PRN Reason: Protocol Last Admin: 05/26/17 09:44 Dose: 5,000 units Metronidazole (Flagyl) 500 mg in 100 mls @ 100 mls/hr IVPB Q8 [facility] PRN Reason: Protocol Last Admin: 05/26/17 05:40 Dose: 100 mls/hr Lisinopril (Zestril) 2.5 mg PO DAILY [facility] Last Admin: 05/26/17 09:45 Dose: 2.5 mg Morphine Sulfate (Morphine) 2 mg IVP Q4H PRN PRN Reason: Pain, severe (8-10) Last Admin: 05/26/17 09:44 Dose: 2 mg Ondansetron HCl (Zofran Inj) 4 mg IVP Q4H PRN PRN Reason: Nausea/Vomiting Last Admin: 05/26/17 09:46 Dose: 4 mg Pantoprazole Sodium (Protonix Ec Tab) 40 mg PO 0600 [facility] Last Admin: 05/26/17 05:40 Dose: 40 mg Spironolactone (Aldactone) 25 mg PO BID [facility] Last Admin: 05/26/17 09:45 Dose: 25 mg Sucralfate (Carafate Oral Susp) 1 gm PO BID [facility] Last Admin: 05/26/17 09:46 Dose: 1 gm Ursodiol (Actigall) 300 mg PO DAILY [facility] Last Admin: 05/26/17 09:46 Dose: 300 mg - Labs Labs: 05/26/17 07:30 05/26/17 06:13 PT 19.0 SECONDS (9.4-12.5) H 05/19/17 08:20 INR 1.64 (0.93-1.08) H 05/19/17 08:20 APTT 30.4 Seconds (25.1-36.5) 05/19/17 08:20 - Constitutional Appears: No Acute Distress - Eye Exam Eye Exam: Normal appearance. absent: Scleral icterus - ENT Exam ENT Exam: Mucous Membranes Moist - Neck Exam Neck Exam: Normal Inspection - Respiratory Exam Respiratory Exam: NORMAL BREATHING PATTERN. absent: Respiratory Distress - Cardiovascular Exam Cardiovascular Exam: +S1, +S2 - GI/Abdominal Exam GI & Abdominal Exam: Distended (ascites), Soft, Tenderness (RUQ/epigastric), Normal Bowel Sounds. absent: Guarding, Rebound - Extremities Exam Extremities Exam: Normal Capillary Refill, Pedal Edema. absent: Calf Tenderness - Neurological Exam Neurological Exam: Alert, Awake, Oriented x3 Assessment and Plan - Assessment and Plan (Free Text) Assessment: ASSESSMENT: RUQ Abdminal Pain,, status post HIDA scan positive for cystic duct obstruction/ acute cholecystitis Cholelithiasis with sludge Dilated CBD Colon cancer with metastasis Anemia PLAN: continue soft low-fat low-cholesterol continue IV antibiotics Flagyl and ceftriaxone continue GI propyhlaxsis, on Protonix and Carafate monitor LFT DVT prophylaxsis On Actigall pain mgt. on Aldactone monitor electrolytes continue Colace twice a day change MiraLAX prn to daily as per oncology conservative management for acute cholecystitis Seen and discussed w/ Dr. Turk. <Rosalee,Kovil V - Last Filed: 05/26/17 19:45> Objective - Vital Signs/Intake and Output Vital Signs (last 24 hours): Temp Pulse Resp BP Pulse Ox 98.2 F 60 20 111/62 99 05/26/17 16:00 05/26/17 16:00 05/26/17 16:00 05/26/17 16:00 05/26/17 16:00 Intake and Output: 05/26/17 05/27/17 18:59 06:59 Intake Total 240 Balance 240 - Medications Medications: Current Medications Docusate Sodium (Colace) 100 mg PO BID [facility] Last Admin: 05/26/17 19:15 Dose: Not Given Ergocalciferol (Drisdol 50,000 Intl Units Cap) 1 cap PO SUN [facility] Last Admin: 05/24/17 10:16 Dose: 1 cap Famciclovir (Famvir) 500 mg PO BID [facility] Last Admin: 05/26/17 17:42 Dose: 500 mg Furosemide (Lasix) 40 mg IVP Q12 [facility] Stop: 05/28/17 22:01 Heparin Sodium (Porcine) (Heparin) 5,000 units SC Q12 [facility] PRN Reason: Protocol Last Admin: 05/26/17 09:44 Dose: 5,000 units Metronidazole (Flagyl) 500 mg in 100 mls @ 100 mls/hr IVPB Q8 [facility] PRN Reason: Protocol Last Admin: 05/26/17 14:00 Dose: 100 mls/hr Ceftriaxone Sodium (Rocephin 1 Gram Ivpb) 1 gm in 100 mls @ 100 mls/hr IVPB DAILY [facility] PRN Reason: Protocol Lisinopril (Zestril) 2.5 mg PO DAILY [facility] Last Admin: 05/26/17 09:45 Dose: 2.5 mg Morphine Sulfate (Morphine) 2 mg IVP Q4H PRN PRN Reason: Pain, severe (8-10) Last Admin: 05/26/17 17:11 Dose: 2 mg Nystatin (Nystatin Oral Susp) 5 ml PO QID [facility] Ondansetron HCl (Zofran Inj) 4 mg IVP Q4H PRN PRN Reason: Nausea/Vomiting Last Admin: 05/26/17 17:11 Dose: 4 mg Pantoprazole Sodium (Protonix Ec Tab) 40 mg PO 0600 [facility] Last Admin: 05/26/17 05:40 Dose: 40 mg Polyethylene Glycol (Miralax) 17 gm PO DAILY [facility] Last Admin: 05/26/17 13:05 Dose: 17 gm Spironolactone (Aldactone) 25 mg PO BID [facility] Last Admin: 05/26/17 17:42 Dose: 25 mg Sucralfate (Carafate Oral Susp) 1 gm PO BID [facility] Last Admin: 05/26/17 17:42 Dose: 1 gm Ursodiol (Actigall) 300 mg PO DAILY [facility] Last Admin: 05/26/17 09:46 Dose: 300 mg - Labs Labs: 05/26/17 07:30 05/26/17 06:13 PT 19.0 SECONDS (9.4-12.5) H 05/19/17 08:20 INR 1.64 (0.93-1.08) H 05/19/17 08:20 APTT 30.4 Seconds (25.1-36.5) 05/19/17 08:20 Attending/Attestation - Attestation I have personally seen and examined this patient.: Yes I have fully participated in the care of the patient.: Yes I have reviewed all pertinent clinical information, including history, physical exam and plan: Yes Notes (Text): This is an addendum to GI progress report dictated by Cathi Meade APN.The patient was seen and examined earlier. Medical records, lab studies, imagings were reviewed. Last 24 hours events reviewed. Agreed with the above treatment plan as outlined in Cathi Meade APN's notes the with the addition of the following She has some discomfort in the right upper quadrant area Continue the antibiotics Patient did have bowel movement after the relistor 05/26/17 19:44
--- NOTE | 2017-05-26 12:27 | CP.PCM.PN ---
Subjective - Date & Time of Evaluation Date of Evaluation: 05/26/17 Time of Evaluation: 10:35 - Subjective Subjective: Had low grade temperature, but feeling better, less abdominal pain. Objective - Vital Signs/Intake and Output Vital Signs (last 24 hours): Temp Pulse Resp BP Pulse Ox 100 F H 87 20 131/83 95 05/26/17 08:18 05/26/17 08:18 05/26/17 08:18 05/26/17 08:18 05/26/17 08:18 Intake and Output: 05/26/17 05/26/17 06:59 18:59 Intake Total 480 240 Balance 480 240 - Medications Medications: Current Medications Docusate Sodium (Colace) 100 mg PO BID [facility] Last Admin: 05/25/17 17:55 Dose: 100 mg Ergocalciferol (Drisdol 50,000 Intl Units Cap) 1 cap PO SUN [facility] Last Admin: 05/24/17 10:16 Dose: 1 cap Famciclovir (Famvir) 500 mg PO BID [facility] Last Admin: 05/25/17 17:55 Dose: 500 mg Heparin Sodium (Porcine) (Heparin) 5,000 units SC Q12 [facility] PRN Reason: Protocol Last Admin: 05/25/17 22:02 Dose: 5,000 units Ceftriaxone Sodium (Rocephin 1 Gram Ivpb) 1 gm in 100 mls @ 100 mls/hr IVPB DAILY [facility] PRN Reason: Protocol Stop: 05/26/17 10:59 Last Admin: 05/25/17 09:57 Dose: 100 mls/hr Metronidazole (Flagyl) 500 mg in 100 mls @ 100 mls/hr IVPB Q8 [facility] PRN Reason: Protocol Last Admin: 05/26/17 05:40 Dose: 100 mls/hr Sodium Chloride (Sodium Chloride 0.9%) 1,000 mls @ 50 mls/hr IV .Q20H [facility] Last Admin: 05/26/17 02:25 Dose: 50 mls/hr Lisinopril (Zestril) 2.5 mg PO DAILY [facility] Last Admin: 05/25/17 09:57 Dose: 2.5 mg Morphine Sulfate (Morphine) 2 mg IVP Q4H PRN PRN Reason: Pain, severe (8-10) Last Admin: 05/26/17 05:44 Dose: 2 mg Ondansetron HCl (Zofran Inj) 4 mg IVP Q4H PRN PRN Reason: Nausea/Vomiting Pantoprazole Sodium (Protonix Ec Tab) 40 mg PO 0600 [facility] Last Admin: 05/26/17 05:40 Dose: 40 mg Polyethylene Glycol (Miralax) 17 gm PO DAILY PRN PRN Reason: Constipation Last Admin: 05/22/17 12:28 Dose: 17 gm Spironolactone (Aldactone) 25 mg PO BID [facility] Last Admin: 05/25/17 17:55 Dose: 25 mg Sucralfate (Carafate Oral Susp) 1 gm PO BID [facility] Last Admin: 05/25/17 17:55 Dose: 1 gm Ursodiol (Actigall) 300 mg PO DAILY [facility] Last Admin: 05/25/17 10:00 Dose: 300 mg - Labs Labs: 05/26/17 07:30 05/26/17 06:13 PT 19.0 SECONDS (9.4-12.5) H 05/19/17 08:20 INR 1.64 (0.93-1.08) H 05/19/17 08:20 APTT 30.4 Seconds (25.1-36.5) 05/19/17 08:20 - Constitutional Appears: Chronically Ill - Head Exam Head Exam: NORMAL INSPECTION - Respiratory Exam Respiratory Exam: Decreased Breath Sounds - Cardiovascular Exam Cardiovascular Exam: +S1, +S2 - GI/Abdominal Exam GI & Abdominal Exam: Soft. absent: Tenderness Assessment and Plan - Assessment and Plan (Free Text) Plan: Assessment acute cholecystitis, slowly improving with conservative therapy colonic malignancy with liver metastases endometriosis uterine fibroids S/P removal Plan continue Rocephin and Flagyl (day 6) and will continue to observe - will repeat septic work up because of low grade temperatures overall prognosis is poor
--- NOTE | 2017-05-26 13:01 | CP.PCM.PN ---
Subjective - Date & Time of Evaluation Date of Evaluation: 05/26/17 Time of Evaluation: 12:00 - Subjective Subjective: Patient seen and examined this AM. Patient states that she had an episode of nausea and vomiting last night after drinking pomegranate juice--no blood or bile. Patient denies any nausea at this time but states that she has not appetite and hasn't eaten much since. Patient reports persistent epigastric/ diffuse abdominal pain that is currently adequately controlled with morphine. States she had multiple soft BM's yesterday without blood. Objective - Vital Signs/Intake and Output Vital Signs (last 24 hours): Temp Pulse Resp BP Pulse Ox 100 F H 87 20 131/83 95 05/26/17 08:18 05/26/17 09:45 05/26/17 08:18 05/26/17 09:45 05/26/17 08:18 Intake and Output: 05/26/17 05/26/17 06:59 18:59 Intake Total 480 240 Balance 480 240 - Medications Medications: Current Medications Docusate Sodium (Colace) 100 mg PO BID [facility] Last Admin: 05/26/17 09:46 Dose: 100 mg Ergocalciferol (Drisdol 50,000 Intl Units Cap) 1 cap PO SUN [facility] Last Admin: 05/24/17 10:16 Dose: 1 cap Famciclovir (Famvir) 500 mg PO BID [facility] Last Admin: 05/26/17 09:46 Dose: 500 mg Heparin Sodium (Porcine) (Heparin) 5,000 units SC Q12 [facility] PRN Reason: Protocol Last Admin: 05/26/17 09:44 Dose: 5,000 units Metronidazole (Flagyl) 500 mg in 100 mls @ 100 mls/hr IVPB Q8 [facility] PRN Reason: Protocol Last Admin: 05/26/17 05:40 Dose: 100 mls/hr Lisinopril (Zestril) 2.5 mg PO DAILY [facility] Last Admin: 05/26/17 09:45 Dose: 2.5 mg Morphine Sulfate (Morphine) 2 mg IVP Q4H PRN PRN Reason: Pain, severe (8-10) Last Admin: 05/26/17 09:44 Dose: 2 mg Ondansetron HCl (Zofran Inj) 4 mg IVP Q4H PRN PRN Reason: Nausea/Vomiting Last Admin: 05/26/17 09:46 Dose: 4 mg Pantoprazole Sodium (Protonix Ec Tab) 40 mg PO 0600 [facility] Last Admin: 05/26/17 05:40 Dose: 40 mg Polyethylene Glycol (Miralax) 17 gm PO DAILY [facility] Spironolactone (Aldactone) 25 mg PO BID [facility] Last Admin: 05/26/17 09:45 Dose: 25 mg Sucralfate (Carafate Oral Susp) 1 gm PO BID [facility] Last Admin: 05/26/17 09:46 Dose: 1 gm Ursodiol (Actigall) 300 mg PO DAILY [facility] Last Admin: 05/26/17 09:46 Dose: 300 mg - Labs Labs: 05/26/17 07:30 05/26/17 06:13 PT 19.0 SECONDS (9.4-12.5) H 05/19/17 08:20 INR 1.64 (0.93-1.08) H 05/19/17 08:20 APTT 30.4 Seconds (25.1-36.5) 05/19/17 08:20 - Constitutional Appears: Well, Non-toxic, No Acute Distress - Head Exam Head Exam: ATRAUMATIC, NORMOCEPHALIC - Eye Exam Eye Exam: Normal appearance. absent: Conjunctival injection - ENT Exam ENT Exam: Mucous Membranes Moist, Normal Oropharynx - Respiratory Exam Respiratory Exam: NORMAL BREATHING PATTERN. absent: Accessory Muscle Use, Respiratory Distress - GI/Abdominal Exam GI & Abdominal Exam: Distended, Soft, Tenderness (epigastric, no RUQ tenderness) Additional comments: negative todd's sign - Extremities Exam Extremities Exam: absent: Calf Tenderness, Pedal Edema, Tenderness - Neurological Exam Neurological Exam: Alert, Awake, Oriented x3 - Skin Skin Exam: Dry, Intact, Normal Color, Warm Assessment and Plan - Assessment and Plan (Free Text) Assessment: 61 y/o F with metastatic colon cancer to the liver, symptomatic cholelithiasis vs cholecystitis. Plan: No surgery planned at this time--abdomen is a very hostile environment at this time due to metastatic colon cancer and patient is a very poor surgical candidate. Patient's WBC is trending down. LFT's are stable. Vitals are stable. Continue pain management, nausea medication PRN Continue diet as tolerated IV hydration if PO fluid intake inadequate Continue management per primary Abx per ID Please call surgical team for any questions or concerns Case discussed with Dr. Divya Hanson, PGY2
[2017-05-26] MEDS: POLYETHYLENE GLYCOL 3350 17 GM/Dose PACKET PO SCH (13:05)
--- NOTE | 2017-05-26 13:17 | CP.PCM.PN ---
Subjective - Date & Time of Evaluation Date of Evaluation: 05/26/17 Time of Evaluation: 13:13 - Subjective Subjective: Patient seen and examined at bedside. Patient complaining of excruciating pain overnight. Patient did have a bowel movement after receiving Relistor yesterday. Also had 1 episode of vomiting after drinking pomegranate juice. Denies chest pain, shortness of breath, diarrhea, fever, chills. Objective - Vital Signs/Intake and Output Vital Signs (last 24 hours): Temp Pulse Resp BP Pulse Ox 100 F H 87 20 131/83 95 05/26/17 08:18 05/26/17 09:45 05/26/17 08:18 05/26/17 09:45 05/26/17 08:18 Intake and Output: 05/26/17 05/26/17 06:59 18:59 Intake Total 480 240 Balance 480 240 - Medications Medications: Current Medications Docusate Sodium (Colace) 100 mg PO BID [facility] Last Admin: 05/26/17 09:46 Dose: 100 mg Ergocalciferol (Drisdol 50,000 Intl Units Cap) 1 cap PO SUN [facility] Last Admin: 05/24/17 10:16 Dose: 1 cap Famciclovir (Famvir) 500 mg PO BID [facility] Last Admin: 05/26/17 09:46 Dose: 500 mg Heparin Sodium (Porcine) (Heparin) 5,000 units SC Q12 [facility] PRN Reason: Protocol Last Admin: 05/26/17 09:44 Dose: 5,000 units Metronidazole (Flagyl) 500 mg in 100 mls @ 100 mls/hr IVPB Q8 [facility] PRN Reason: Protocol Last Admin: 05/26/17 05:40 Dose: 100 mls/hr Lisinopril (Zestril) 2.5 mg PO DAILY [facility] Last Admin: 05/26/17 09:45 Dose: 2.5 mg Morphine Sulfate (Morphine) 2 mg IVP Q4H PRN PRN Reason: Pain, severe (8-10) Last Admin: 05/26/17 09:44 Dose: 2 mg Ondansetron HCl (Zofran Inj) 4 mg IVP Q4H PRN PRN Reason: Nausea/Vomiting Last Admin: 05/26/17 09:46 Dose: 4 mg Pantoprazole Sodium (Protonix Ec Tab) 40 mg PO 0600 [facility] Last Admin: 05/26/17 05:40 Dose: 40 mg Polyethylene Glycol (Miralax) 17 gm PO DAILY [facility] Last Admin: 05/26/17 13:05 Dose: 17 gm Spironolactone (Aldactone) 25 mg PO BID [facility] Last Admin: 05/26/17 09:45 Dose: 25 mg Sucralfate (Carafate Oral Susp) 1 gm PO BID [facility] Last Admin: 05/26/17 09:46 Dose: 1 gm Ursodiol (Actigall) 300 mg PO DAILY [facility] Last Admin: 05/26/17 09:46 Dose: 300 mg - Labs Labs: 05/26/17 07:30 05/26/17 06:13 PT 19.0 SECONDS (9.4-12.5) H 05/19/17 08:20 INR 1.64 (0.93-1.08) H 05/19/17 08:20 APTT 30.4 Seconds (25.1-36.5) 05/19/17 08:20 - Constitutional Appears: Non-toxic, No Acute Distress - Head Exam Head Exam: ATRAUMATIC, NORMAL INSPECTION, NORMOCEPHALIC - ENT Exam ENT Exam: Mucous Membranes Moist, Normal Exam - Respiratory Exam Respiratory Exam: Clear to Ausculation Bilateral, NORMAL BREATHING PATTERN - Cardiovascular Exam Cardiovascular Exam: RRR, +S1, +S2 - GI/Abdominal Exam GI & Abdominal Exam: Soft, Tenderness (Diffuse, mainly epigastric ), Normal Bowel Sounds - Extremities Exam Extremities Exam: Normal Inspection, Pedal Edema (+1 edema b/l). absent: Calf Tenderness - Neurological Exam Neurological Exam: Alert, Awake, Oriented x3 - Psychiatric Exam Psychiatric exam: Normal Affect, Normal Mood - Skin Skin Exam: Intact, Normal Color, Warm Assessment and Plan - Assessment and Plan (Free Text) Plan: 61 y/o F with PMH of stage IV metastatic colorectal cancer presents with worsening abdominal pain. Patient currently has abdominal pain exacerbations controlled by Morphine. Patient initially underwent endoscopy with EUS which showed cholelithiasis, mulitple liver mets, and gastritis. HIDA showed evidence for acute cholecystitis. Patient was evaluated by surgery and was not deemed fit for surgical intervention at this time. Patient remains on Rocephin and Flagyl where she continues to improve. ID consulted on the case, will attempt to switch patient to oral antibiotics as per ID. Patient will receive chemotherapy as an outpatient after discharge. Will continue to monitor closely. Plan discussed with Dr. Pretty. Geovani, PGY-2
--- NOTE | 2017-05-26 19:43 | CP.PCM.PN ---
Subjective - Date & Time of Evaluation Date of Evaluation: 05/24/17 Time of Evaluation: 16:45 - Subjective Subjective: feeling better had bowel movements after her last Relistor before Objective - Vital Signs/Intake and Output Vital Signs (last 24 hours): Temp Pulse Resp BP Pulse Ox 98.0 F 95 H 20 114/71 97 05/24/17 17:12 05/24/17 17:12 05/24/17 17:12 05/24/17 17:12 05/24/17 17:12 Intake and Output: 05/24/17 05/25/17 18:59 06:59 Intake Total 540 Balance 540 - Medications Medications: Current Medications Docusate Sodium (Colace) 100 mg PO BID [facility] Last Admin: 05/24/17 17:41 Dose: 100 mg Ergocalciferol (Drisdol 50,000 Intl Units Cap) 1 cap PO SUN [facility] Last Admin: 05/24/17 10:16 Dose: 1 cap Famciclovir (Famvir) 500 mg PO BID [facility] Last Admin: 05/24/17 17:41 Dose: 500 mg Heparin Sodium (Porcine) (Heparin) 5,000 units SC Q12 [facility] PRN Reason: Protocol Last Admin: 05/24/17 21:03 Dose: 5,000 units Ceftriaxone Sodium (Rocephin 1 Gram Ivpb) 1 gm in 100 mls @ 100 mls/hr IVPB DAILY [facility] PRN Reason: Protocol Last Admin: 05/24/17 10:17 Dose: 100 mls/hr Metronidazole (Flagyl) 500 mg in 100 mls @ 100 mls/hr IVPB Q8 [facility] PRN Reason: Protocol Last Admin: 05/24/17 21:03 Dose: 100 mls/hr Sodium Chloride (Sodium Chloride 0.9%) 1,000 mls @ 50 mls/hr IV .Q20H [facility] Last Admin: 05/24/17 04:15 Dose: 50 mls/hr Lisinopril (Zestril) 2.5 mg PO DAILY [facility] Last Admin: 05/24/17 10:17 Dose: 2.5 mg Morphine Sulfate (Morphine) 2 mg IV Q4H PRN PRN Reason: Pain, severe (8-10) Last Admin: 05/24/17 21:02 Dose: 2 mg Ondansetron HCl (Zofran Inj) 4 mg IVP Q4H PRN PRN Reason: Nausea/Vomiting Pantoprazole Sodium (Protonix Ec Tab) 40 mg PO 0600 [facility] Last Admin: 05/24/17 05:10 Dose: 40 mg Polyethylene Glycol (Miralax) 17 gm PO DAILY PRN PRN Reason: Constipation Last Admin: 05/22/17 12:28 Dose: 17 gm Spironolactone (Aldactone) 25 mg PO BID [facility] Last Admin: 05/24/17 17:41 Dose: 25 mg Sucralfate (Carafate Oral Susp) 1 gm PO BID [facility] Last Admin: 05/24/17 17:41 Dose: 1 gm Ursodiol (Actigall) 300 mg PO DAILY [facility] Last Admin: 05/24/17 10:16 Dose: 300 mg - Labs Labs: 05/24/17 05:30 05/24/17 05:30 PT 19.0 SECONDS (9.4-12.5) H 05/19/17 08:20 INR 1.64 (0.93-1.08) H 05/19/17 08:20 APTT 30.4 Seconds (25.1-36.5) 05/19/17 08:20 - Head Exam Head Exam: ATRAUMATIC, NORMOCEPHALIC - Eye Exam Eye Exam: EOMI, PERRL - ENT Exam ENT Exam: Mucous Membranes Moist - Neck Exam Neck Exam: Full ROM. absent: Lymphadenopathy - Respiratory Exam Respiratory Exam: Clear to Ausculation Bilateral, NORMAL BREATHING PATTERN. absent: Rales - Cardiovascular Exam Cardiovascular Exam: REGULAR RHYTHM, +S1, +S2. absent: JVD - GI/Abdominal Exam GI & Abdominal Exam: Soft, Tenderness Additional comments: right upper quadrant area tenderness - Neurological Exam Neurological Exam: Alert, Awake, Oriented x3 Assessment and Plan - Assessment and Plan (Free Text) Assessment: this 61-year-old patient with a metastatic colorectal carcinoma liver metastases , calcified gallstone presented with increasing pain in the right upper quadrant area. Endoscopic ultrasound examination revealed a thickened gallbladder wall with mild pericholecystic fluid. HIDA scan showed a nonvisualized gallbladder suggestive of cholecystitis. Patient has been on IV antibiotics. In view of the extensive metastasis with omental involvement surgery recommended only conservative management History of constipation on pain medication didn't receive relistor before would recommend another dose of Relistor again for constipation and cramping abdominal pain discussed with the nursing staff
--- NOTE | 2017-05-26 19:45 | PN ---
DATE: SUBJECTIVE: The patient is currently seen sitting in chair beside her bed. She is complaining of increased lower extremity edema and increased abdominal discomfort secondary to ascites. I did speak with the medical clerk, who is requesting that we consider starting her on stronger diuretic therapy. MEDICATIONS: Medication list reviewed. The patient is currently on Actigall, Aldactone, Carafate, Colace, vitamin D, Famvir, Flagyl, heparin, MiraLax, p.r.n. morphine, Protonix, Zestril, and Zofran p.r.n. OBJECTIVE: INTAKE/OUTPUT: Intake is 780, output not charted. No recent weights. VITAL SIGNS: Blood pressure 131/83, temperature 100 degrees Fahrenheit, pulse 87, respiratory rate of 20, pulse ox is 95%. HEENT: Exam shows her to be normocephalic, atraumatic. Conjunctivae are pale. Sclerae are nonicteric. NECK: Supple. No neck vein distention. CHEST: Clear to auscultation and percussion. No rales, no rhonchi, no wheezing. CARDIOVASCULAR: Shows a regular rate and rhythm without murmurs, rubs, or gallops noted. ABDOMEN: Mildly distended. Positive ascites. Bowel sounds normal. No rebound, no guarding, no masses. EXTREMITIES: Show 1 to 2+ pitting edema of her lower extremity with patient sitting in a chair. No cyanosis or clubbing. LABORATORY DATA AND IMAGING: CBC: White blood cell count today is 12.0 with a hemoglobin of 10 and a platelet count of 218,000. Coags: PT of 19 on admission with a PTT of 30.4. Chemistry showed normal electrolytes. BUN 30 with a creatinine of 0.3. Glucose is 97. Calcium 8.1, corrects to normal for an albumin of 2.6. Bilirubin is improved to 1.3. Mild elevation of AST at 94, ALT is 33. Alkaline phosphatase is mildly elevated at 226. ASSESSMENT: 1. Normal renal parameters. 2. Acute cholecystitis. The patient is deemed not to be a surgical candidate. She is continued on IV antibiotic therapy. Her right upper quadrant pain appears to be dissipating. 3. History of stage IV colon cancer with liver metastases. 4. Mild hyponatremia, resolved. 5. Increased lower extremity edema and ascites. Discussion with medical clerk. I will start the patient on IV Lasix therapy in addition to oral Aldactone. We will continue to monitor accurate I's and O's which have not been done and we will try and obtain daily weights. We may discontinue IV diuretic therapy once the lower extremity edema has diminished and the ascites has lessened. PLAN: 1. Keep the patient off IV fluids. 2. Would use combination Aldactone together with IV Lasix therapy to help maintain her potassium in the normal range. 3. We will monitor accurate I's and O's and obtain daily weights. 4. Follow daily labs while the patient is on diuretic therapy. 5. Duration of IV antibiotic therapy for treatment of acute cholecystitis as per ID. Yang Cuellar MD
[2017-05-26] MEDS: Nystatin 100,000 Units/ml Oral Susp 5 ml UD PO SCH (21:27)
[2017-05-27] MEDS: Morphine 2 mg/ml ISec IVP PRN ×5 (02:45→22:21)
[2017-05-27] MEDS: Pantoprazole 40 mg EC Tab PO SCH (05:43)
[2017-05-27] MEDS: metroNIDAZOLE IV 500 mg/100 ml 500 MG/100 ML BAG IVPB SCH ×3 (05:43→22:21)
[2017-05-27 06:23] LABS: HEMOGLOBIN 10.2 g/dL (12.0-16.0); MEAN CELL VOLUME 83.2 fl (80.0-105.0); MEAN CORPUSCULAR HEMOGLOBIN 27.1 pg (25.0-35.0); MEAN CORPUSCULAR HGB CONC 32.6 g/dl (31.0-37.0); MEAN PLATELET VOLUME 9.1 fl (7.0-11.0); RBC 3.76 10^6/uL (3.5-6.1); RED CELL DISTRIBUTION WIDTH 19.7 % (11.5-14.5); WHITE BLOOD COUNT 13.9 10^3/ul (4.5-11.0)
[2017-05-27 07:54] LABS: ALB/GLOB RATIO 0.7 (1.1-1.8); ALBUMIN 2.7 g/dL (3.0-4.8); ALT/SGPT 36 U/L (7-56); AST/SGOT 126 U/L (14-36); BILIRUBIN,DIRECT 1.3 mg/dL (0.0-0.4); BLOOD UREA NITROGEN 4 mg/dL (7-21); CALCIUM 8.3 mg/dL (8.4-10.5); GFR AFRICAN-AMERICAN > 60; GFR NON-AFRICAN AMERICAN > 60; MAGNESIUM 1.7 mg/dL (1.7-2.2)
[2017-05-27] MEDS ORDERED: REGORAFENIB PO SCH (10:15)
[2017-05-27] MEDS ORDERED: STIVARGA 40 MG PO SCH (10:15)
--- NOTE | 2017-05-27 10:41 | CP.PCM.PN ---
Subjective - Date & Time of Evaluation Date of Evaluation: 05/27/17 Time of Evaluation: 10:38 - Subjective Subjective: Patient seen and examined at bedside. Patient complaining of intense pain in her abdomen. She has not been able to eat properly due to the pain. Patient describes one small, loose bowel movement yesterday. Patient is also admitting to shortness of breath on ambulation. Denies chest pain, nausea, vomiting, diarrhea, fever, chills. Objective - Vital Signs/Intake and Output Vital Signs (last 24 hours): Temp Pulse Resp BP Pulse Ox 98.1 F 94 H 18 128/78 97 05/27/17 08:50 05/27/17 08:50 05/27/17 08:50 05/27/17 08:50 05/27/17 08:50 Intake and Output: 05/27/17 05/27/17 06:59 18:59 Intake Total 1500 Output Total 1575 Balance -75 - Medications Medications: Current Medications Docusate Sodium (Colace) 100 mg PO BID [facility] Last Admin: 05/26/17 19:15 Dose: Not Given Ergocalciferol (Drisdol 50,000 Intl Units Cap) 1 cap PO SUN [facility] Last Admin: 05/24/17 10:16 Dose: 1 cap Famciclovir (Famvir) 500 mg PO BID [facility] Last Admin: 05/26/17 17:42 Dose: 500 mg Fentanyl (Duragesic) 1 patch TD Q72H [facility] Last Admin: 05/26/17 21:27 Dose: 1 patch Furosemide (Lasix) 40 mg IVP Q12 [facility] Stop: 05/28/17 22:01 Last Admin: 05/26/17 21:27 Dose: 40 mg Furosemide (Lasix) 40 mg IVP ONCE ONE Stop: 05/27/17 12:01 Heparin Sodium (Porcine) (Heparin) 5,000 units SC Q12 [facility] PRN Reason: Protocol Last Admin: 05/26/17 21:27 Dose: 5,000 units Home Med (Home Med) 0 unit PO DAILY [facility] Metronidazole (Flagyl) 500 mg in 100 mls @ 100 mls/hr IVPB Q8 [facility] PRN Reason: Protocol Last Admin: 05/27/17 05:43 Dose: 100 mls/hr Ceftriaxone Sodium (Rocephin 1 Gram Ivpb) 1 gm in 100 mls @ 100 mls/hr IVPB DAILY [facility] PRN Reason: Protocol Albumin Human (Albumin Human 25% (25 Gm/100 Ml)) 100 mls @ 1 mls/min IVPB ONCE ONE Stop: 05/27/17 11:39 Lisinopril (Zestril) 2.5 mg PO DAILY [facility] Last Admin: 05/26/17 09:45 Dose: 2.5 mg Morphine Sulfate (Morphine) 2 mg IVP Q4H PRN PRN Reason: Pain, severe (8-10) Last Admin: 05/27/17 07:41 Dose: 2 mg Nystatin (Nystatin Oral Susp) 5 ml PO QID [facility] Last Admin: 05/26/17 21:27 Dose: 5 ml Ondansetron HCl (Zofran Inj) 4 mg IVP Q4H PRN PRN Reason: Nausea/Vomiting Last Admin: 05/27/17 07:48 Dose: 4 mg Pantoprazole Sodium (Protonix Ec Tab) 40 mg PO 0600 [facility] Last Admin: 05/27/17 05:43 Dose: 40 mg Polyethylene Glycol (Miralax) 17 gm PO DAILY [facility] Last Admin: 05/26/17 13:05 Dose: 17 gm Spironolactone (Aldactone) 25 mg PO BID [facility] Last Admin: 05/26/17 17:42 Dose: 25 mg Sucralfate (Carafate Oral Susp) 1 gm PO BID [facility] Last Admin: 05/26/17 17:42 Dose: 1 gm Ursodiol (Actigall) 300 mg PO DAILY [facility] Last Admin: 05/26/17 09:46 Dose: 300 mg - Labs Labs: 05/27/17 06:00 05/27/17 06:00 PT 19.0 SECONDS (9.4-12.5) H 05/19/17 08:20 INR 1.64 (0.93-1.08) H 05/19/17 08:20 APTT 30.4 Seconds (25.1-36.5) 05/19/17 08:20 - Constitutional Appears: Non-toxic, No Acute Distress - Head Exam Head Exam: ATRAUMATIC, NORMAL INSPECTION, NORMOCEPHALIC - ENT Exam ENT Exam: Mucous Membranes Moist - Respiratory Exam Respiratory Exam: Clear to Ausculation Bilateral, NORMAL BREATHING PATTERN. absent: Rales, Rhonchi, Wheezes - Cardiovascular Exam Cardiovascular Exam: RRR, +S1, +S2 - GI/Abdominal Exam GI & Abdominal Exam: Soft, Normal Bowel Sounds. absent: Tenderness - Extremities Exam Extremities Exam: Pedal Edema (+1 edema b/l, improved). absent: Calf Tenderness - Neurological Exam Neurological Exam: Alert, Awake, Oriented x3 - Psychiatric Exam Psychiatric exam: Normal Affect, Normal Mood - Skin Skin Exam: Intact, Normal Color, Warm Assessment and Plan - Assessment and Plan (Free Text) Plan: 61 y/o F with PMH of stage IV metastatic colorectal cancer presents with worsening abdominal pain. Patient currently has abdominal pain exacerbations controlled by Morphine. Patient initially underwent endoscopy with EUS which showed cholelithiasis, mulitple liver mets, and gastritis. HIDA showed evidence for acute cholecystitis. Patient was evaluated by surgery and was not deemed fit for surgical intervention at this time. Patient remains on Rocephin and Flagyl where she continues to improve. ID consulted on the case, will attempt to switch patient to oral antibiotics as per ID. Patient to start Xgeva today, for 4 doses. Patient will also receive a dose of relistor for her constipation. Patient will also have an abdomen ultrasound for increasing abdominal distention and have IR consulted for potential paracentesis. Will continue to monitor closely. Plan discussed with Dr. Pretty. Geovani, PGY-2
[2017-05-27] MEDS: cefTRIAXone 1 gm 1 GM/100 ML BAG IVPB SCH (11:03)
[2017-05-27] MEDS: Nystatin 100,000 Units/ml Oral Susp 5 ml UD PO SCH ×4 (11:04→22:21)
[2017-05-27] MEDS: Sucralfate 1 gm/10 ml Oral Susp UD PO SCH ×2 (11:04→17:18)
[2017-05-27] MEDS: POLYETHYLENE GLYCOL 3350 17 GM/Dose PACKET PO SCH (11:05)
--- NOTE | 2017-05-27 11:20 | US ---
HISTORY: Acites COMPARISON: 05/15/2017 abdominal ultrasound TECHNIQUE: Sonographic evaluation of the abdomen. FINDINGS: LIVER: Measures 19.8 x 17.6 cm. Re- demonstration of multiple hepatic metastasis. GALLBLADDER: Gallstones. One of these is lodged in the neck of the gallbladder. Gallbladder wall edema with out sonographic Krishnamurthy's sign. COMMON BILE DUCT: Not visualized. PANCREAS: Obscured by overlying bowel gas. Non diagnostic assessment of the pancreas RIGHT KIDNEY: Measures 5.7 x 11.2cm. Normal echogenicity. No calculus, mass, or hydronephrosis. LEFT KIDNEY: Measures 6.9 x 12.2cm. Normal echogenicity. No calculus, mass, or hydronephrosis. SPLEEN: Normal in size and contour. No mass. AORTA: No aneurysmal dilatation. IVC: Unremarkable. OTHER FINDINGS: Large volume intra-abdominal ascites. Ascitic volume qualitatively has increased. IMPRESSION: Increase in intra-abdominal ascites. Cholelithiasis, gallbladder wall thickening without sonographic Krishnamurthy's sign. Stable hepatic metastatic disease.
[2017-05-27] MEDS: STIVARGA 40 MG PO SCH (11:29)
--- NOTE | 2017-05-27 11:37 | CP.PCM.PN ---
Subjective - Date & Time of Evaluation Date of Evaluation: 05/27/17 Time of Evaluation: 10:10 - Subjective Subjective: Seen and examined at the bedside this morning, chart review. Patient reports having multiple episodes of urination, on diuretic. Had BM denies blood per rectum or diarrhea. She did have abdominal discomfort but no acute distress. Awaiting for evaluation for paracentesis. No acute overnight events reported. No fever, chills, nausea, vomiting, shortness of breath or chest pain. Objective - Vital Signs/Intake and Output Vital Signs (last 24 hours): Temp Pulse Resp BP Pulse Ox 98.1 F 94 H 18 128/74 97 05/27/17 08:50 05/27/17 11:04 05/27/17 08:50 05/27/17 11:04 05/27/17 08:50 Intake and Output: 05/27/17 05/27/17 06:59 18:59 Intake Total 1500 Output Total 1575 Balance -75 - Medications Medications: Current Medications Docusate Sodium (Colace) 100 mg PO BID [facility] Last Admin: 05/27/17 11:07 Dose: Not Given Ergocalciferol (Drisdol 50,000 Intl Units Cap) 1 cap PO SUN [facility] Last Admin: 05/24/17 10:16 Dose: 1 cap Famciclovir (Famvir) 500 mg PO BID [facility] Last Admin: 05/27/17 11:06 Dose: 500 mg Fentanyl (Duragesic) 1 patch TD Q72H [facility] Last Admin: 05/26/17 21:27 Dose: 1 patch Furosemide (Lasix) 40 mg IVP Q12 [facility] Stop: 05/28/17 22:01 Last Admin: 05/26/17 21:27 Dose: 40 mg Furosemide (Lasix) 40 mg IVP ONCE ONE Stop: 05/27/17 12:01 Heparin Sodium (Porcine) (Heparin) 5,000 units SC Q12 [facility] PRN Reason: Protocol Last Admin: 05/27/17 11:07 Dose: 5,000 units Home Med (Home Med) 0 unit PO DAILY [facility] Metronidazole (Flagyl) 500 mg in 100 mls @ 100 mls/hr IVPB Q8 [facility] PRN Reason: Protocol Last Admin: 05/27/17 05:43 Dose: 100 mls/hr Ceftriaxone Sodium (Rocephin 1 Gram Ivpb) 1 gm in 100 mls @ 100 mls/hr IVPB DAILY [facility] PRN Reason: Protocol Last Admin: 05/27/17 11:03 Dose: 100 mls/hr Albumin Human (Albumin Human 25% (25 Gm/100 Ml)) 100 mls @ 1 mls/min IVPB ONCE ONE Stop: 05/27/17 11:39 Last Admin: 05/27/17 11:03 Dose: 1 mls/min Lisinopril (Zestril) 2.5 mg PO DAILY [facility] Last Admin: 05/27/17 11:04 Dose: 2.5 mg Morphine Sulfate (Morphine) 2 mg IVP Q4H PRN PRN Reason: Pain, severe (8-10) Last Admin: 05/27/17 07:41 Dose: 2 mg Nystatin (Nystatin Oral Susp) 5 ml PO QID [facility] Last Admin: 05/27/17 11:04 Dose: 5 ml Ondansetron HCl (Zofran Inj) 4 mg IVP Q4H PRN PRN Reason: Nausea/Vomiting Last Admin: 05/27/17 07:48 Dose: 4 mg Pantoprazole Sodium (Protonix Ec Tab) 40 mg PO 0600 [facility] Last Admin: 05/27/17 05:43 Dose: 40 mg Polyethylene Glycol (Miralax) 17 gm PO DAILY [facility] Last Admin: 05/27/17 11:05 Dose: 17 gm Spironolactone (Aldactone) 25 mg PO BID [facility] Last Admin: 05/27/17 11:07 Dose: 25 mg Sucralfate (Carafate Oral Susp) 1 gm PO BID [facility] Last Admin: 05/27/17 11:04 Dose: 1 gm Ursodiol (Actigall) 300 mg PO DAILY [facility] Last Admin: 05/27/17 11:04 Dose: 300 mg - Labs Labs: 05/27/17 06:00 05/27/17 06:00 PT 19.0 SECONDS (9.4-12.5) H 05/19/17 08:20 INR 1.64 (0.93-1.08) H 05/19/17 08:20 APTT 30.4 Seconds (25.1-36.5) 05/19/17 08:20 - Constitutional Appears: No Acute Distress - Head Exam Head Exam: NORMOCEPHALIC - Eye Exam Eye Exam: Normal appearance. absent: Scleral icterus - ENT Exam ENT Exam: Mucous Membranes Moist - Neck Exam Neck Exam: Normal Inspection - Respiratory Exam Respiratory Exam: NORMAL BREATHING PATTERN. absent: Rales, Wheezes, Respiratory Distress - Cardiovascular Exam Cardiovascular Exam: +S1, +S2 - GI/Abdominal Exam GI & Abdominal Exam: Distended, Soft, Tenderness, Normal Bowel Sounds. absent: Guarding, Rebound - Extremities Exam Extremities Exam: Pedal Edema (appears slightly better). absent: Calf Tenderness - Neurological Exam Neurological Exam: Alert, Awake, Oriented x3 - Skin Skin Exam: Dry (Isidoro), Warm Assessment and Plan - Assessment and Plan (Free Text) Assessment: ASSESSMENT: RUQ Abdminal Pain,, status post HIDA scan positive for cystic duct obstruction/ acute cholecystitis Cholelithiasis with sludge Dilated CBD Abdominal distention/ascites Colon cancer with metastasis Anemia PLAN: continue soft low-fat low-cholesterol continue IV antibiotics Flagyl and ceftriaxone continue GI propyhlaxsis, on Protonix and Carafate monitor LFT DVT prophylaxsis On Actigall pain mgt. on Aldactone monitor electrolytes continue bowel regimen, on Colace and MiraLAX monitor for diarrhea as per oncology conservative management for acute cholecystitis pending Evaluation for paracentesis Seen and discussed w/ Dr. Turk.
--- NOTE | 2017-05-27 12:20 | CP.PCM.PN ---
Subjective - Date & Time of Evaluation Date of Evaluation: 05/27/17 Time of Evaluation: 10:50 - Subjective Subjective: Still having abdominal pain, no fevers, for possible paracentesis. Objective - Vital Signs/Intake and Output Vital Signs (last 24 hours): Temp Pulse Resp BP Pulse Ox 98.1 F 94 H 18 128/78 97 05/27/17 08:50 05/27/17 08:50 05/27/17 08:50 05/27/17 08:50 05/27/17 08:50 Intake and Output: 05/27/17 05/27/17 06:59 18:59 Intake Total 1500 Output Total 1575 Balance -75 - Medications Medications: Current Medications Docusate Sodium (Colace) 100 mg PO BID [facility] Last Admin: 05/26/17 19:15 Dose: Not Given Ergocalciferol (Drisdol 50,000 Intl Units Cap) 1 cap PO SUN [facility] Last Admin: 05/24/17 10:16 Dose: 1 cap Famciclovir (Famvir) 500 mg PO BID [facility] Last Admin: 05/26/17 17:42 Dose: 500 mg Fentanyl (Duragesic) 1 patch TD Q72H [facility] Last Admin: 05/26/17 21:27 Dose: 1 patch Furosemide (Lasix) 40 mg IVP Q12 [facility] Stop: 05/28/17 22:01 Last Admin: 05/26/17 21:27 Dose: 40 mg Heparin Sodium (Porcine) (Heparin) 5,000 units SC Q12 [facility] PRN Reason: Protocol Last Admin: 05/26/17 21:27 Dose: 5,000 units Metronidazole (Flagyl) 500 mg in 100 mls @ 100 mls/hr IVPB Q8 [facility] PRN Reason: Protocol Last Admin: 05/27/17 05:43 Dose: 100 mls/hr Ceftriaxone Sodium (Rocephin 1 Gram Ivpb) 1 gm in 100 mls @ 100 mls/hr IVPB DAILY [facility] PRN Reason: Protocol Lisinopril (Zestril) 2.5 mg PO DAILY [facility] Last Admin: 05/26/17 09:45 Dose: 2.5 mg Morphine Sulfate (Morphine) 2 mg IVP Q4H PRN PRN Reason: Pain, severe (8-10) Last Admin: 05/27/17 07:41 Dose: 2 mg Nystatin (Nystatin Oral Susp) 5 ml PO QID [facility] Last Admin: 05/26/17 21:27 Dose: 5 ml Ondansetron HCl (Zofran Inj) 4 mg IVP Q4H PRN PRN Reason: Nausea/Vomiting Last Admin: 05/27/17 07:48 Dose: 4 mg Pantoprazole Sodium (Protonix Ec Tab) 40 mg PO 0600 [facility] Last Admin: 05/27/17 05:43 Dose: 40 mg Polyethylene Glycol (Miralax) 17 gm PO DAILY [facility] Last Admin: 05/26/17 13:05 Dose: 17 gm Spironolactone (Aldactone) 25 mg PO BID [facility] Last Admin: 05/26/17 17:42 Dose: 25 mg Sucralfate (Carafate Oral Susp) 1 gm PO BID [facility] Last Admin: 05/26/17 17:42 Dose: 1 gm Ursodiol (Actigall) 300 mg PO DAILY [facility] Last Admin: 05/26/17 09:46 Dose: 300 mg - Labs Labs: 05/27/17 06:00 05/27/17 06:00 PT 19.0 SECONDS (9.4-12.5) H 05/19/17 08:20 INR 1.64 (0.93-1.08) H 05/19/17 08:20 APTT 30.4 Seconds (25.1-36.5) 05/19/17 08:20 - Constitutional Appears: Chronically Ill - Head Exam Head Exam: NORMAL INSPECTION - Neck Exam Neck Exam: absent: Meningismus - Respiratory Exam Respiratory Exam: Decreased Breath Sounds - Cardiovascular Exam Cardiovascular Exam: +S1, +S2 - GI/Abdominal Exam GI & Abdominal Exam: Distended, Soft, Tenderness (mild). absent: Guarding, Rigid, Rebound Assessment and Plan - Assessment and Plan (Free Text) Plan: Assessment acute cholecystitis, slowly improving with conservative therapy colonic malignancy with liver metastases with ascites endometriosis uterine fibroids S/P removal Plan continue Rocephin and Flagyl (day 7) and will continue to observe - should complete 14 days of antibiotics and can be switched to PO Cefpodoxime and Flagyl to complete therapy when ready for discharge follow up plan for paracentesis overall prognosis is poor
--- NOTE | 2017-05-27 16:33 | PN ---
DATE: 05/27/2017 SUBJECTIVE: The patient is seen lying in bed. She is awake. She is alert. She complains of distention of her abdomen. She also complains of swelling of her lower extremities. PHYSICAL EXAMINATION: GENERAL: Elderly lady, lying in bed. VITAL SIGNS: Blood pressure 128/68, heart rate 94, respiratory rate 18, temperature 98.1. HEENT: Normocephalic, atraumatic. NECK: Supple, no JVD. LUNGS: Bilateral equal entry, no rales. CARDIAC: S1 and S2, regular rate and rhythm, no murmur, no rub. ABDOMEN: Obese, distended, soft, positive fluid thrill. EXTREMITIES: 2+ pitting edema of the lower extremities. INTAKE AND OUTPUT: 1740/1575. LABORATORY DATA: WBC 13.9, hemoglobin 10, hematocrit 31, platelets 245. Sodium 136, potassium 3.8, chloride 103, CO2 of 23, BUN 4, creatinine 0.4, glucose 92, calcium 8.3, phosphorus 1.5, magnesium 1.7, total bili 1.5, direct bili 1.3. Cultures, no growth. CURRENT MEDICATIONS: Actigall, Aldactone 25 b.i.d., Carafate, Colace, Drisdol, Duragesic, Famvir, metronidazole, heparin, Lasix 40 IV q. 12, MiraLax, morphine, nystatin, Protonix, Rocephin 1 g, Zestril 2.5, Zofran. ASSESSMENT: 1. Mild hyponatremia. 2. Volume overload. 3. Acute cholecystitis. 4. Colon cancer with liver metastasis. 5. Hypophosphatemia. PLAN: 1. Continue Aldactone. 2. Agree with IV Lasix. 3. Replace phosphorus. 4. Keep O's greater than I's. Valeria Dominguez MD
[2017-05-27] MEDS: Potassium & Sodium Phosphate PO SCH (17:18)
[2017-05-28] MEDS: Morphine 2 mg/ml ISec IVP PRN ×5 (02:43→22:17)
[2017-05-28] MEDS: metroNIDAZOLE IV 500 mg/100 ml 500 MG/100 ML BAG IVPB SCH ×3 (05:35→22:16)
[2017-05-28] MEDS: Pantoprazole 40 mg EC Tab PO SCH (06:35)
[2017-05-28 07:34] LABS: HEMOGLOBIN 10.3 g/dL (12.0-16.0); MEAN CELL VOLUME 82.3 fl (80.0-105.0); MEAN CORPUSCULAR HEMOGLOBIN 27.6 pg (25.0-35.0); MEAN CORPUSCULAR HGB CONC 33.6 g/dl (31.0-37.0); MEAN PLATELET VOLUME 8.9 fl (7.0-11.0); RBC 3.73 10^6/uL (3.5-6.1); RED CELL DISTRIBUTION WIDTH 19.5 % (11.5-14.5); WHITE BLOOD COUNT 12.9 10^3/ul (4.5-11.0)
[2017-05-28 07:43] LABS: ALB/GLOB RATIO 0.8 (1.1-1.8); ALBUMIN 2.9 g/dL (3.0-4.8); ALT/SGPT 32 U/L (7-56); AST/SGOT 116 U/L (14-36); BLOOD UREA NITROGEN 4 mg/dL (7-21); CALCIUM 8.4 mg/dL (8.4-10.5); GFR AFRICAN-AMERICAN > 60; GFR NON-AFRICAN AMERICAN > 60
--- NOTE | 2017-05-28 09:56 | US ---
PROCEDURE: Ultrasound guided paracentesis. HISTORY: Metastatic colon CA. New onset ascites. Evaluate for malignancy. PHYSICIAN(S): Christiano Hicks MD. TECHNIQUE: The relative risks and indications for the procedure were explained to the patient and informed written consent obtained. Sonography of the abdomen was performed in a supine position. This revealed a small to moderate amount of non-loculated ascites, greatest in the right mid abdomen. A puncture site was selected and the area was prepped and draped in the usual sterile fashion. 1% Xylocaine was used to anesthetize the skin and soft tissues. A 7 Swiss paracentesis catheter was trocared into the right mid abdomenand 4800 cc of tony fluid aspirated. A cytology specimen was sent. IMPRESSION: Ultrasound-guided paracentesis in the right mid abdomen. 4800 cc of fluid were aspirated. A cytology specimen was sent.
[2017-05-28] MEDS: cefTRIAXone 1 gm 1 GM/100 ML BAG IVPB SCH (09:57)
[2017-05-28] MEDS: Nystatin 100,000 Units/ml Oral Susp 5 ml UD PO SCH ×4 (09:58→22:23)
[2017-05-28] MEDS: POLYETHYLENE GLYCOL 3350 17 GM/Dose PACKET PO SCH (09:58)
[2017-05-28] MEDS: Sucralfate 1 gm/10 ml Oral Susp UD PO SCH ×2 (09:59→17:18)
[2017-05-28] MEDS: Potassium & Sodium Phosphate PO SCH ×2 (09:59→17:18)
[2017-05-28] MEDS: Potassium Chloride 20 mEq ER Tab PO SCH ×2 (09:59→17:18)
[2017-05-28] MEDS: STIVARGA 40 MG PO SCH (10:03)
--- NOTE | 2017-05-28 10:12 | CP.PCM.PN ---
Subjective - Date & Time of Evaluation Date of Evaluation: 05/28/17 Time of Evaluation: 09:59 - Subjective Subjective: Patient seen and examined at bedside. Patient went for paracentesis this morning. Patient still complaining of severe abdominal pain, which is not allowing her to eat. She does also admit to dyspnea on exertion. Denies chest pain, nausea, vomiting, diarrhea, fever, chills. Objective - Vital Signs/Intake and Output Vital Signs (last 24 hours): Temp Pulse Resp BP Pulse Ox 98.7 F 101 H 18 134/82 95 05/28/17 09:06 05/28/17 09:06 05/28/17 09:06 05/28/17 09:06 05/28/17 09:06 Intake and Output: 05/28/17 05/28/17 06:59 18:59 Intake Total 430 Output Total 2525 Balance -2095 - Medications Medications: Current Medications Docusate Sodium (Colace) 100 mg PO BID [facility] Last Admin: 05/27/17 17:16 Dose: Not Given Ergocalciferol (Drisdol 50,000 Intl Units Cap) 1 cap PO SUN [facility] Last Admin: 05/24/17 10:16 Dose: 1 cap Famciclovir (Famvir) 500 mg PO BID [facility] Last Admin: 05/27/17 17:18 Dose: 500 mg Fentanyl (Duragesic) 1 patch TD Q72H [facility] Last Admin: 05/26/17 21:27 Dose: 1 patch Furosemide (Lasix) 40 mg IVP 0600,1800 [facility] Stop: 05/30/17 06:01 Last Admin: 05/28/17 07:46 Dose: Not Given Heparin Sodium (Porcine) (Heparin) 5,000 units SC Q12 [facility] PRN Reason: Protocol Last Admin: 05/27/17 22:21 Dose: 5,000 units Home Med (Home Med) 0 unit PO DAILY [facility] Last Admin: 05/27/17 11:29 Dose: 1 unit Metronidazole (Flagyl) 500 mg in 100 mls @ 100 mls/hr IVPB Q8 [facility] PRN Reason: Protocol Last Admin: 05/28/17 05:35 Dose: 100 mls/hr Ceftriaxone Sodium (Rocephin 1 Gram Ivpb) 1 gm in 100 mls @ 100 mls/hr IVPB DAILY [facility] PRN Reason: Protocol Last Admin: 05/27/17 11:03 Dose: 100 mls/hr Lisinopril (Zestril) 2.5 mg PO DAILY [facility] Last Admin: 05/27/17 11:04 Dose: 2.5 mg Morphine Sulfate (Morphine) 2 mg IVP Q4H PRN PRN Reason: Pain, severe (8-10) Last Admin: 05/28/17 06:22 Dose: 2 mg Nystatin (Nystatin Oral Susp) 5 ml PO QID [facility] Last Admin: 05/27/17 22:21 Dose: 5 ml Ondansetron HCl (Zofran Inj) 4 mg IVP Q4H PRN PRN Reason: Nausea/Vomiting Last Admin: 05/28/17 02:45 Dose: 4 mg Pantoprazole Sodium (Protonix Ec Tab) 40 mg PO 0600 [facility] Last Admin: 05/28/17 06:35 Dose: Not Given Polyethylene Glycol (Miralax) 17 gm PO DAILY [facility] Last Admin: 05/27/17 11:05 Dose: 17 gm Potassium Chloride (K-Dur 20 Meq Er Tab) 20 meq PO BID [facility] Potassium Phos/Sodium Phos (Neutra-Phos) 1 pkt PO BID [facility] Last Admin: 05/27/17 17:18 Dose: 1 pkt Spironolactone (Aldactone) 25 mg PO BID [facility] Last Admin: 05/27/17 17:18 Dose: 25 mg Sucralfate (Carafate Oral Susp) 1 gm PO BID [facility] Last Admin: 05/27/17 17:18 Dose: 1 gm Ursodiol (Actigall) 300 mg PO DAILY [facility] Last Admin: 05/27/17 11:04 Dose: 300 mg - Labs Labs: 05/28/17 07:00 05/28/17 07:00 PT 19.0 SECONDS (9.4-12.5) H 05/19/17 08:20 INR 1.64 (0.93-1.08) H 05/19/17 08:20 APTT 30.4 Seconds (25.1-36.5) 05/19/17 08:20 - Constitutional Appears: Non-toxic, No Acute Distress - Head Exam Head Exam: ATRAUMATIC, NORMAL INSPECTION, NORMOCEPHALIC - ENT Exam ENT Exam: Mucous Membranes Moist - Respiratory Exam Respiratory Exam: Clear to Ausculation Bilateral, NORMAL BREATHING PATTERN - Cardiovascular Exam Cardiovascular Exam: RRR, +S1, +S2 - GI/Abdominal Exam GI & Abdominal Exam: Distended, Soft, Tenderness, Normal Bowel Sounds. absent: Rebound - Extremities Exam Extremities Exam: Pedal Edema (+1 edema b/l). absent: Calf Tenderness - Neurological Exam Neurological Exam: Alert, Awake, Oriented x3 - Psychiatric Exam Psychiatric exam: Normal Affect, Normal Mood - Skin Skin Exam: Intact, Normal Color, Warm Assessment and Plan - Assessment and Plan (Free Text) Plan: 61 y/o F with PMH of stage IV metastatic colorectal cancer presents with worsening abdominal pain. Patient currently has abdominal pain exacerbations controlled by Morphine. Patient initially underwent endoscopy with EUS which showed cholelithiasis, mulitple liver mets, and gastritis. HIDA showed evidence for acute cholecystitis. Patient was evaluated by surgery and was not deemed fit for surgical intervention at this time. Patient remains on Rocephin and Flagyl where she continues to improve. Patient does still have severe abdominal pain, requiring IV pain medication. Patient underwent paracentesis today which removed 4800 cc of fluid. Patient will continue Stivarga at this time. Will continue to monitor closely. Plan discussed with Dr. Pretty. Geovani, PGY-2
--- NOTE | 2017-05-28 17:22 | CP.PCM.PN ---
<Cathi Meade - Last Filed: 05/28/17 17:20> Subjective - Date & Time of Evaluation Date of Evaluation: 05/28/17 Time of Evaluation: 09:50 - Subjective Subjective: Seen and examined at the bedside earlier today, chart reviewed. No acute overnight events reported. Patient had paracentesis earlier this morning, drained 4800 cc of fluid. Patient does report improvement of abdominal pain.having soft BM. Lower extremity edema improve. No new complaints. Objective - Vital Signs/Intake and Output Vital Signs (last 24 hours): Temp Pulse Resp BP Pulse Ox 98.7 F 101 H 18 134/82 95 05/28/17 09:06 05/28/17 09:58 05/28/17 09:06 05/28/17 09:58 05/28/17 09:06 Intake and Output: 05/28/17 05/28/17 06:59 18:59 Intake Total 430 840 Output Total 2525 100 Balance -2095 740 - Medications Medications: Current Medications Docusate Sodium (Colace) 100 mg PO BID [facility] Last Admin: 05/28/17 09:59 Dose: 100 mg Ergocalciferol (Drisdol 50,000 Intl Units Cap) 1 cap PO SUN [facility] Last Admin: 05/24/17 10:16 Dose: 1 cap Famciclovir (Famvir) 500 mg PO BID [facility] Last Admin: 05/28/17 09:59 Dose: 500 mg Fentanyl (Duragesic) 1 patch TD Q72H [facility] Last Admin: 05/26/17 21:27 Dose: 1 patch Furosemide (Lasix) 40 mg IVP 0600,1800 [facility] Stop: 05/30/17 06:01 Last Admin: 05/28/17 07:46 Dose: Not Given Heparin Sodium (Porcine) (Heparin) 5,000 units SC Q12 [facility] PRN Reason: Protocol Last Admin: 05/28/17 09:58 Dose: 5,000 units Home Med (Home Med) 0 unit PO DAILY [facility] Last Admin: 05/28/17 10:03 Dose: 1 unit Metronidazole (Flagyl) 500 mg in 100 mls @ 100 mls/hr IVPB Q8 [facility] PRN Reason: Protocol Last Admin: 05/28/17 14:09 Dose: 100 mls/hr Ceftriaxone Sodium (Rocephin 1 Gram Ivpb) 1 gm in 100 mls @ 100 mls/hr IVPB DAILY [facility] PRN Reason: Protocol Last Admin: 05/28/17 09:57 Dose: 100 mls/hr Lisinopril (Zestril) 2.5 mg PO DAILY [facility] Last Admin: 05/28/17 09:58 Dose: 2.5 mg Morphine Sulfate (Morphine) 2 mg IVP Q4H PRN PRN Reason: Pain, severe (8-10) Last Admin: 05/28/17 10:19 Dose: 2 mg Nystatin (Nystatin Oral Susp) 5 ml PO QID [facility] Last Admin: 05/28/17 14:09 Dose: 5 ml Ondansetron HCl (Zofran Inj) 4 mg IVP Q4H PRN PRN Reason: Nausea/Vomiting Last Admin: 05/28/17 10:19 Dose: 4 mg Pantoprazole Sodium (Protonix Ec Tab) 40 mg PO 0600 [facility] Last Admin: 05/28/17 06:35 Dose: Not Given Polyethylene Glycol (Miralax) 17 gm PO DAILY [facility] Last Admin: 05/28/17 09:58 Dose: 17 gm Potassium Chloride (K-Dur 20 Meq Er Tab) 20 meq PO BID [facility] Last Admin: 05/28/17 09:59 Dose: 20 meq Potassium Phos/Sodium Phos (Neutra-Phos) 1 pkt PO BID [facility] Last Admin: 05/28/17 09:59 Dose: 1 pkt Spironolactone (Aldactone) 25 mg PO BID [facility] Last Admin: 05/28/17 09:59 Dose: 25 mg Sucralfate (Carafate Oral Susp) 1 gm PO BID [facility] Last Admin: 05/28/17 09:59 Dose: 1 gm Ursodiol (Actigall) 300 mg PO DAILY [facility] Last Admin: 05/28/17 09:59 Dose: 300 mg - Labs Labs: 05/28/17 07:00 05/28/17 07:00 PT 19.0 SECONDS (9.4-12.5) H 05/19/17 08:20 INR 1.64 (0.93-1.08) H 05/19/17 08:20 APTT 30.4 Seconds (25.1-36.5) 05/19/17 08:20 - Constitutional Appears: No Acute Distress - Head Exam Head Exam: NORMOCEPHALIC - Eye Exam Eye Exam: Normal appearance. absent: Scleral icterus - ENT Exam ENT Exam: Mucous Membranes Moist - Neck Exam Neck Exam: Normal Inspection - Respiratory Exam Respiratory Exam: NORMAL BREATHING PATTERN. absent: Respiratory Distress - Cardiovascular Exam Cardiovascular Exam: +S1, +S2 - GI/Abdominal Exam GI & Abdominal Exam: Soft, Normal Bowel Sounds. absent: Guarding, Tenderness, Organomegaly, Rebound - Extremities Exam Extremities Exam: absent: Calf Tenderness (improved edema), Pedal Edema - Neurological Exam Neurological Exam: Alert, Awake, Oriented x3 - Skin Skin Exam: Dry, Warm Assessment and Plan - Assessment and Plan (Free Text) Assessment: ASSESSMENT: Improving RUQ Abdominal Pain,, status post HIDA scan positive for cystic duct obstruction/acute cholecystitis Cholelithiasis with sludge Dilated CBD Abdominal distention/ascites, s/p paracentesis Colon cancer with metastasis Anemia PLAN: continue soft low-fat low-cholesterol continue IV antibiotics Flagyl and ceftriaxone continue GI propyhlaxsis, on Protonix and Carafate monitor LFT DVT prophylaxsis On Actigall pain mgt. on Aldactone monitor electrolytes continue bowel regimen, on Colace and MiraLAX monitor for diarrhea as per oncology, plan to start chemo conservative management for acute cholecystitis Seen and discussed w/ Dr. Turk. <Joi Turk V - Last Filed: 05/28/17 20:59> Objective - Vital Signs/Intake and Output Vital Signs (last 24 hours): Temp Pulse Resp BP Pulse Ox 98 F 95 H 20 130/81 95 05/28/17 16:00 05/28/17 16:00 05/28/17 16:00 05/28/17 16:00 05/28/17 16:00 Intake and Output: 05/28/17 05/29/17 18:59 06:59 Intake Total 2600 Output Total 300 Balance 2300 - Medications Medications: Current Medications Docusate Sodium (Colace) 100 mg PO BID [facility] Last Admin: 05/28/17 17:26 Dose: Not Given Ergocalciferol (Drisdol 50,000 Intl Units Cap) 1 cap PO SUN [facility] Last Admin: 05/24/17 10:16 Dose: 1 cap Famciclovir (Famvir) 500 mg PO BID [facility] Last Admin: 05/28/17 17:18 Dose: 500 mg Fentanyl (Duragesic) 1 patch TD Q72H [facility] Last Admin: 05/26/17 21:27 Dose: 1 patch Furosemide (Lasix) 40 mg IVP 0600,1800 [facility] Stop: 05/30/17 06:01 Last Admin: 05/28/17 07:46 Dose: Not Given Heparin Sodium (Porcine) (Heparin) 5,000 units SC Q12 [facility] PRN Reason: Protocol Last Admin: 05/28/17 09:58 Dose: 5,000 units Home Med (Home Med) 0 unit PO DAILY [facility] Last Admin: 05/28/17 10:03 Dose: 1 unit Metronidazole (Flagyl) 500 mg in 100 mls @ 100 mls/hr IVPB Q8 [facility] PRN Reason: Protocol Last Admin: 05/28/17 14:09 Dose: 100 mls/hr Ceftriaxone Sodium (Rocephin 1 Gram Ivpb) 1 gm in 100 mls @ 100 mls/hr IVPB DAILY [facility] PRN Reason: Protocol Last Admin: 05/28/17 09:57 Dose: 100 mls/hr Lisinopril (Zestril) 2.5 mg PO DAILY [facility] Last Admin: 05/28/17 09:58 Dose: 2.5 mg Morphine Sulfate (Morphine) 2 mg IVP Q4H PRN PRN Reason: Pain, severe (8-10) Last Admin: 05/28/17 17:29 Dose: 2 mg Nystatin (Nystatin Oral Susp) 5 ml PO QID [facility] Last Admin: 05/28/17 17:18 Dose: 5 ml Ondansetron HCl (Zofran Inj) 4 mg IVP Q4H PRN PRN Reason: Nausea/Vomiting Last Admin: 05/28/17 10:19 Dose: 4 mg Pantoprazole Sodium (Protonix Ec Tab) 40 mg PO 0600 [facility] Last Admin: 05/28/17 06:35 Dose: Not Given Polyethylene Glycol (Miralax) 17 gm PO DAILY [facility] Last Admin: 05/28/17 09:58 Dose: 17 gm Potassium Chloride (K-Dur 20 Meq Er Tab) 20 meq PO BID [facility] Last Admin: 05/28/17 17:18 Dose: 20 meq Potassium Phos/Sodium Phos (Neutra-Phos) 1 pkt PO BID [facility] Last Admin: 05/28/17 17:18 Dose: 1 pkt Spironolactone (Aldactone) 25 mg PO BID [facility] Last Admin: 05/28/17 17:18 Dose: 25 mg Sucralfate (Carafate Oral Susp) 1 gm PO BID [facility] Last Admin: 05/28/17 17:18 Dose: 1 gm Ursodiol (Actigall) 300 mg PO DAILY [facility] Last Admin: 05/28/17 09:59 Dose: 300 mg - Labs Labs: 05/28/17 07:00 05/28/17 07:00 PT 19.0 SECONDS (9.4-12.5) H 05/19/17 08:20 INR 1.64 (0.93-1.08) H 05/19/17 08:20 APTT 30.4 Seconds (25.1-36.5) 05/19/17 08:20 Attending/Attestation - Attestation I have personally seen and examined this patient.: Yes I have fully participated in the care of the patient.: Yes I have reviewed all pertinent clinical information, including history, physical exam and plan: Yes Notes (Text): This is an addendum to GI progress report dictated by Cathi Meade APN.The patient was seen and examined earlier. Medical records, lab studies, imagings were reviewed. Last 24 hours events reviewed. Agreed with the above treatment plan as outlined in Cathi Meade APN's notes the with the addition of the following Status post large-volume paracentesis ,patient was feeling better On examination abdomen soft significant improvement of the right upper quadrant tenderness complete antibiotic course as per ID 05/28/17 20:57
--- NOTE | 2017-05-28 18:19 | CP.PCM.PN ---
Subjective - Date & Time of Evaluation Date of Evaluation: 05/28/17 Time of Evaluation: 10:45 - Subjective Subjective: Still with abdominal pain, no fevers. Objective - Vital Signs/Intake and Output Vital Signs (last 24 hours): Temp Pulse Resp BP Pulse Ox 98.7 F 101 H 18 134/82 95 05/28/17 09:06 05/28/17 09:06 05/28/17 09:06 05/28/17 09:06 05/28/17 09:06 Intake and Output: 05/28/17 05/28/17 06:59 18:59 Intake Total 430 Output Total 2525 Balance -2095 - Medications Medications: Current Medications Docusate Sodium (Colace) 100 mg PO BID [facility] Last Admin: 05/27/17 17:16 Dose: Not Given Ergocalciferol (Drisdol 50,000 Intl Units Cap) 1 cap PO SUN [facility] Last Admin: 05/24/17 10:16 Dose: 1 cap Famciclovir (Famvir) 500 mg PO BID [facility] Last Admin: 05/27/17 17:18 Dose: 500 mg Fentanyl (Duragesic) 1 patch TD Q72H [facility] Last Admin: 05/26/17 21:27 Dose: 1 patch Furosemide (Lasix) 40 mg IVP 0600,1800 [facility] Stop: 05/30/17 06:01 Last Admin: 05/28/17 07:46 Dose: Not Given Heparin Sodium (Porcine) (Heparin) 5,000 units SC Q12 [facility] PRN Reason: Protocol Last Admin: 05/27/17 22:21 Dose: 5,000 units Home Med (Home Med) 0 unit PO DAILY [facility] Last Admin: 05/27/17 11:29 Dose: 1 unit Metronidazole (Flagyl) 500 mg in 100 mls @ 100 mls/hr IVPB Q8 [facility] PRN Reason: Protocol Last Admin: 05/28/17 05:35 Dose: 100 mls/hr Ceftriaxone Sodium (Rocephin 1 Gram Ivpb) 1 gm in 100 mls @ 100 mls/hr IVPB DAILY [facility] PRN Reason: Protocol Last Admin: 05/27/17 11:03 Dose: 100 mls/hr Lisinopril (Zestril) 2.5 mg PO DAILY [facility] Last Admin: 05/27/17 11:04 Dose: 2.5 mg Morphine Sulfate (Morphine) 2 mg IVP Q4H PRN PRN Reason: Pain, severe (8-10) Last Admin: 05/28/17 06:22 Dose: 2 mg Nystatin (Nystatin Oral Susp) 5 ml PO QID [facility] Last Admin: 05/27/17 22:21 Dose: 5 ml Ondansetron HCl (Zofran Inj) 4 mg IVP Q4H PRN PRN Reason: Nausea/Vomiting Last Admin: 05/28/17 02:45 Dose: 4 mg Pantoprazole Sodium (Protonix Ec Tab) 40 mg PO 0600 [facility] Last Admin: 05/28/17 06:35 Dose: Not Given Polyethylene Glycol (Miralax) 17 gm PO DAILY [facility] Last Admin: 05/27/17 11:05 Dose: 17 gm Potassium Phos/Sodium Phos (Neutra-Phos) 1 pkt PO BID [facility] Last Admin: 05/27/17 17:18 Dose: 1 pkt Spironolactone (Aldactone) 25 mg PO BID [facility] Last Admin: 05/27/17 17:18 Dose: 25 mg Sucralfate (Carafate Oral Susp) 1 gm PO BID [facility] Last Admin: 05/27/17 17:18 Dose: 1 gm Ursodiol (Actigall) 300 mg PO DAILY [facility] Last Admin: 05/27/17 11:04 Dose: 300 mg - Labs Labs: 05/28/17 07:00 05/28/17 07:00 PT 19.0 SECONDS (9.4-12.5) H 05/19/17 08:20 INR 1.64 (0.93-1.08) H 05/19/17 08:20 APTT 30.4 Seconds (25.1-36.5) 05/19/17 08:20 - Constitutional Appears: Chronically Ill - Head Exam Head Exam: NORMAL INSPECTION - Neck Exam Neck Exam: absent: Meningismus - Respiratory Exam Respiratory Exam: Decreased Breath Sounds - Cardiovascular Exam Cardiovascular Exam: +S1, +S2 - GI/Abdominal Exam GI & Abdominal Exam: Distended, Soft, Tenderness (mild). absent: Firm, Rigid, Rebound Assessment and Plan - Assessment and Plan (Free Text) Plan: Assessment acute cholecystitis, slowly improving with conservative therapy colonic malignancy with liver metastases with ascites endometriosis uterine fibroids S/P removal Plan continue Rocephin and Flagyl (day 8) and will continue to observe - should complete 14 days of antibiotics and can be switched to PO Cefpodoxime and Flagyl to complete therapy when ready for discharge follow up plan for paracentesis overall prognosis is poor
--- NOTE | 2017-05-28 21:07 | PN ---
DATE: 05/28/2017 SUBJECTIVE: The patient is seen sitting in chair. She is awake, she is alert, she is comfortable. She had paracentesis done today. She reports that almost 5 L of fluid was removed. She reports being much more comfortable. PHYSICAL EXAMINATION: GENERAL: Elderly lady sitting in chair. VITAL SIGNS: Blood pressure 134/82, heart rate 101, respiratory rate 18, temperature 98.7. HEENT: Normocephalic, atraumatic. NECK: Supple, no JVD. LUNGS: Bilateral equal entry, bilateral equal expansion, no rales. CARDIAC: S1 and S2, regular rate and rhythm, no murmur, no rub. ABDOMEN: Distended, soft, mild tenderness, bowel sounds present. EXTREMITIES: 2+ pitting edema of the lower extremities. INTAKE AND OUTPUT: 910/2700. 4800 mL of fluid removed. LABORATORY DATA: WBC 12.9, hemoglobin 10, hematocrit 30.7, platelets 222. Sodium 137, potassium 3.5, chloride 102, CO2 of 25, BUN 4, creatinine 0.4, glucose 96, calcium 8.4, total bilirubin 1.8, AST 116, ALT 32. MEDICATIONS: List reviewed. ASSESSMENT: 1. Hypokalemia. 2. Ascites, 3. Edema. 4. Metastatic colon cancer with liver metastases. 5. Acute cholecystitis. PLAN: 1. Continue Lasix, 2. Keep O's greater than I's. 3. Hold Lasix today because of paracentesis. 4. Continue albumin. 5. Monitor electrolytes closely. 6. Replace potassium. Valeria Dominguez MD
[2017-05-29] MEDS: Morphine 2 mg/ml ISec IVP PRN ×4 (01:48→20:20)
[2017-05-29] MEDS: metroNIDAZOLE IV 500 mg/100 ml 500 MG/100 ML BAG IVPB SCH ×3 (05:51→21:43)
[2017-05-29] MEDS: Pantoprazole 40 mg EC Tab PO SCH (05:55)
[2017-05-29 07:33] LABS: MEAN CELL VOLUME 82.9 fl (80.0-105.0); MEAN CORPUSCULAR HEMOGLOBIN 27.2 pg (25.0-35.0); MEAN CORPUSCULAR HGB CONC 32.8 g/dl (31.0-37.0); MEAN PLATELET VOLUME 9.1 fl (7.0-11.0); RBC 4.04 10^6/uL (3.5-6.1); WHITE BLOOD COUNT 16.2 10^3/ul (4.5-11.0)
[2017-05-29 07:55] LABS: ALB/GLOB RATIO 0.7 (1.1-1.8); ALBUMIN 2.7 g/dL (3.0-4.8); ALT/SGPT 33 U/L (7-56); AST/SGOT 121 U/L (14-36); BLOOD UREA NITROGEN 7 mg/dL (7-21); CALCIUM 8.5 mg/dL (8.4-10.5); GFR AFRICAN-AMERICAN > 60; GFR NON-AFRICAN AMERICAN > 60
--- NOTE | 2017-05-29 10:34 | CP.PCM.PN ---
<Cathi Meade - Last Filed: 05/29/17 10:31> Subjective - Date & Time of Evaluation Date of Evaluation: 05/29/17 Time of Evaluation: 08:45 - Subjective Subjective: S&E at bedside, chart reviewed, had few BM, pt describes as "runs", "mushy" last night, no bleeding, occasional abdominal discomfort, no N/V , fever or chills. Tolerating oral intake. Objective - Vital Signs/Intake and Output Vital Signs (last 24 hours): Temp Pulse Resp BP Pulse Ox 98.7 F 113 H 20 131/80 95 05/29/17 06:00 05/29/17 06:00 05/29/17 06:00 05/29/17 06:00 05/29/17 06:00 Intake and Output: 05/29/17 05/29/17 06:59 18:59 Intake Total 1080 Output Total 200 Balance 880 - Medications Medications: Current Medications Docusate Sodium (Colace) 100 mg PO BID [facility] Last Admin: 05/28/17 17:26 Dose: Not Given Ergocalciferol (Drisdol 50,000 Intl Units Cap) 1 cap PO SUN [facility] Last Admin: 05/24/17 10:16 Dose: 1 cap Famciclovir (Famvir) 500 mg PO BID [facility] Last Admin: 05/28/17 17:18 Dose: 500 mg Fentanyl (Duragesic) 1 patch TD Q72H [facility] Last Admin: 05/26/17 21:27 Dose: 1 patch Furosemide (Lasix) 40 mg IVP 0600,1800 [facility] Stop: 05/30/17 06:01 Last Admin: 05/28/17 07:46 Dose: Not Given Heparin Sodium (Porcine) (Heparin) 5,000 units SC Q12 [facility] PRN Reason: Protocol Last Admin: 05/28/17 22:16 Dose: 5,000 units Home Med (Home Med) 0 unit PO DAILY [facility] Last Admin: 05/28/17 10:03 Dose: 1 unit Metronidazole (Flagyl) 500 mg in 100 mls @ 100 mls/hr IVPB Q8 [facility] PRN Reason: Protocol Last Admin: 05/29/17 05:51 Dose: 100 mls/hr Ceftriaxone Sodium (Rocephin 1 Gram Ivpb) 1 gm in 100 mls @ 100 mls/hr IVPB DAILY [facility] PRN Reason: Protocol Last Admin: 05/28/17 09:57 Dose: 100 mls/hr Lisinopril (Zestril) 2.5 mg PO DAILY [facility] Last Admin: 05/28/17 09:58 Dose: 2.5 mg Morphine Sulfate (Morphine) 2 mg IVP Q4H PRN PRN Reason: Pain, severe (8-10) Last Admin: 05/29/17 05:47 Dose: 2 mg Nystatin (Nystatin Oral Susp) 5 ml PO QID [facility] Last Admin: 05/28/17 22:23 Dose: 5 ml Ondansetron HCl (Zofran Inj) 4 mg IVP Q4H PRN PRN Reason: Nausea/Vomiting Last Admin: 05/29/17 05:51 Dose: 4 mg Pantoprazole Sodium (Protonix Ec Tab) 40 mg PO 0600 [facility] Last Admin: 05/29/17 05:55 Dose: 40 mg Polyethylene Glycol (Miralax) 17 gm PO DAILY [facility] Last Admin: 05/28/17 09:58 Dose: 17 gm Potassium Chloride (K-Dur 20 Meq Er Tab) 20 meq PO BID [facility] Last Admin: 05/28/17 17:18 Dose: 20 meq Potassium Phos/Sodium Phos (Neutra-Phos) 1 pkt PO BID [facility] Last Admin: 05/28/17 17:18 Dose: 1 pkt Spironolactone (Aldactone) 25 mg PO BID [facility] Last Admin: 05/28/17 17:18 Dose: 25 mg Sucralfate (Carafate Oral Susp) 1 gm PO BID [facility] Last Admin: 05/28/17 17:18 Dose: 1 gm Ursodiol (Actigall) 300 mg PO DAILY [facility] Last Admin: 05/28/17 09:59 Dose: 300 mg - Labs Labs: 05/29/17 07:00 05/29/17 07:00 PT 19.0 SECONDS (9.4-12.5) H 05/19/17 08:20 INR 1.64 (0.93-1.08) H 05/19/17 08:20 APTT 30.4 Seconds (25.1-36.5) 05/19/17 08:20 - Constitutional Appears: No Acute Distress - Eye Exam Eye Exam: Normal appearance. absent: Scleral icterus - ENT Exam ENT Exam: Mucous Membranes Moist - Neck Exam Neck Exam: Normal Inspection - Respiratory Exam Respiratory Exam: NORMAL BREATHING PATTERN. absent: Respiratory Distress - Cardiovascular Exam Cardiovascular Exam: +S1, +S2 - GI/Abdominal Exam GI & Abdominal Exam: Distended (less, s/p paracentesis), Soft, Tenderness (mild tenderness right side, paracentesis dsg dry and intact., no rebound or guarding) , Normal Bowel Sounds. absent: Guarding, Rebound - Extremities Exam Extremities Exam: Pedal Edema (trace). absent: Calf Tenderness - Neurological Exam Neurological Exam: Alert, Awake, Oriented x3 - Skin Skin Exam: Dry, Warm Assessment and Plan - Assessment and Plan (Free Text) Assessment: ASSESSMENT: Improving RUQ Abdominal Pain,, status post HIDA scan positive for cystic duct obstruction/acute cholecystitis Cholelithiasis with sludge Dilated CBD Abdominal distention/ascites, s/p paracentesis Colon cancer with metastasis Anemia PLAN: stool cdiff continue soft low-fat low-cholesterol continue IV antibiotics Flagyl and ceftriaxone continue GI propyhlaxsis, on Protonix and Carafate monitor LFT DVT prophylaxsis On Actigall pain mgt. on Aldactone monitor electrolytes on Colace and MiraLAX monitor for diarrhea conservative mgt for acute cholecystitis as per oncology, pt on started on chemo X 4 treatment Seen and discussed w/ Dr. Turk. <Joi Turk V - Last Filed: 05/29/17 20:38> Objective - Vital Signs/Intake and Output Vital Signs (last 24 hours): Temp Pulse Resp BP Pulse Ox 98.7 F 113 H 20 131/80 95 05/29/17 06:00 05/29/17 10:51 05/29/17 06:00 05/29/17 14:27 05/29/17 06:00 Intake and Output: 05/29/17 05/30/17 18:59 06:59 Intake Total 920 Output Total 1000 Balance -80 - Medications Medications: Current Medications Docusate Sodium (Colace) 100 mg PO BID [facility] Last Admin: 05/29/17 18:52 Dose: Not Given Ergocalciferol (Drisdol 50,000 Intl Units Cap) 1 cap PO SUN [facility] Last Admin: 05/24/17 10:16 Dose: 1 cap Famciclovir (Famvir) 500 mg PO BID [facility] Last Admin: 05/29/17 17:53 Dose: 500 mg Fentanyl (Duragesic) 1 patch TD Q72H [facility] Furosemide (Lasix) 40 mg IVP DAILY [facility] Last Admin: 05/29/17 14:27 Dose: 40 mg Heparin Sodium (Porcine) (Heparin) 5,000 units SC Q12 [facility] PRN Reason: Protocol Last Admin: 05/29/17 10:50 Dose: 5,000 units Home Med (Home Med) 0 unit PO DAILY [facility] Last Admin: 05/29/17 10:51 Dose: 1 unit Metronidazole (Flagyl) 500 mg in 100 mls @ 100 mls/hr IVPB Q8 [facility] PRN Reason: Protocol Last Admin: 05/29/17 14:28 Dose: 100 mls/hr Ceftriaxone Sodium (Rocephin 1 Gram Ivpb) 1 gm in 100 mls @ 100 mls/hr IVPB DAILY [facility] PRN Reason: Protocol Last Admin: 05/29/17 10:55 Dose: 100 mls/hr Lisinopril (Zestril) 2.5 mg PO DAILY [facility] Last Admin: 05/29/17 10:51 Dose: 2.5 mg Morphine Sulfate (Morphine) 2 mg IVP Q4H PRN PRN Reason: Pain, severe (8-10) Last Admin: 05/29/17 20:20 Dose: 2 mg Nystatin (Nystatin Oral Susp) 5 ml PO QID [facility] Last Admin: 05/29/17 17:53 Dose: 5 ml Ondansetron HCl (Zofran Inj) 4 mg IVP Q4H PRN PRN Reason: Nausea/Vomiting Last Admin: 05/29/17 10:49 Dose: 4 mg Pantoprazole Sodium (Protonix Ec Tab) 40 mg PO 0600 [facility] Last Admin: 05/29/17 05:55 Dose: 40 mg Polyethylene Glycol (Miralax) 17 gm PO DAILY [facility] Last Admin: 05/29/17 10:50 Dose: 17 gm Potassium Chloride (K-Dur 20 Meq Er Tab) 20 meq PO DAILY [facility] Potassium Phos/Sodium Phos (Neutra-Phos) 1 pkt PO BID [facility] Last Admin: 05/29/17 17:53 Dose: 1 pkt Spironolactone (Aldactone) 25 mg PO BID [facility] Last Admin: 05/29/17 17:53 Dose: 25 mg Sucralfate (Carafate Oral Susp) 1 gm PO BID [facility] Last Admin: 05/29/17 17:53 Dose: 1 gm Ursodiol (Actigall) 300 mg PO DAILY [facility] Last Admin: 05/29/17 10:50 Dose: 300 mg - Labs Labs: 05/29/17 07:00 05/29/17 07:00 PT 19.0 SECONDS (9.4-12.5) H 05/19/17 08:20 INR 1.64 (0.93-1.08) H 05/19/17 08:20 APTT 30.4 Seconds (25.1-36.5) 05/19/17 08:20 Attending/Attestation - Attestation I have personally seen and examined this patient.: Yes I have fully participated in the care of the patient.: Yes I have reviewed all pertinent clinical information, including history, physical exam and plan: Yes Notes (Text): This is an addendum to GI progress report dictated by Cathi Meade APN.The patient was seen and examined earlier. Medical records, lab studies, imagings were reviewed. Last 24 hours events reviewed. Agreed with the above treatment plan as outlined in Cathi Meade APN's notes the with the addition of the following on examination abdomen soft no tenderness slight increase in a left the and the WBC count noted Follow up the LFTs the antibiotics as per ID 05/29/17 20:38
[2017-05-29] MEDS: Potassium & Sodium Phosphate PO SCH ×2 (10:50→17:53)
[2017-05-29] MEDS: POLYETHYLENE GLYCOL 3350 17 GM/Dose PACKET PO SCH (10:50)
[2017-05-29] MEDS: Nystatin 100,000 Units/ml Oral Susp 5 ml UD PO SCH ×4 (10:50→21:44)
[2017-05-29] MEDS: Sucralfate 1 gm/10 ml Oral Susp UD PO SCH ×2 (10:50→17:53)
[2017-05-29] MEDS: Potassium Chloride 20 mEq ER Tab PO SCH (10:51)
[2017-05-29] MEDS: STIVARGA 40 MG PO SCH (10:51)
[2017-05-29] MEDS: cefTRIAXone 1 gm 1 GM/100 ML BAG IVPB SCH (10:55)
--- NOTE | 2017-05-29 12:17 | CP.PCM.PN ---
Subjective - Date & Time of Evaluation Date of Evaluation: 05/29/17 Time of Evaluation: 10:35 - Subjective Subjective: Had paracentesis done, no fevers, less abdominal pain. Objective - Vital Signs/Intake and Output Vital Signs (last 24 hours): Temp Pulse Resp BP Pulse Ox 98.7 F 113 H 20 131/80 95 05/29/17 06:00 05/29/17 06:00 05/29/17 06:00 05/29/17 06:00 05/29/17 06:00 Intake and Output: 05/29/17 05/29/17 06:59 18:59 Intake Total 1080 Output Total 200 Balance 880 - Medications Medications: Current Medications Docusate Sodium (Colace) 100 mg PO BID [facility] Last Admin: 05/28/17 17:26 Dose: Not Given Ergocalciferol (Drisdol 50,000 Intl Units Cap) 1 cap PO SUN [facility] Last Admin: 05/24/17 10:16 Dose: 1 cap Famciclovir (Famvir) 500 mg PO BID [facility] Last Admin: 05/28/17 17:18 Dose: 500 mg Fentanyl (Duragesic) 1 patch TD Q72H [facility] Last Admin: 05/26/17 21:27 Dose: 1 patch Furosemide (Lasix) 40 mg IVP 0600,1800 [facility] Stop: 05/30/17 06:01 Last Admin: 05/28/17 07:46 Dose: Not Given Heparin Sodium (Porcine) (Heparin) 5,000 units SC Q12 [facility] PRN Reason: Protocol Last Admin: 05/28/17 22:16 Dose: 5,000 units Home Med (Home Med) 0 unit PO DAILY [facility] Last Admin: 05/28/17 10:03 Dose: 1 unit Metronidazole (Flagyl) 500 mg in 100 mls @ 100 mls/hr IVPB Q8 [facility] PRN Reason: Protocol Last Admin: 05/29/17 05:51 Dose: 100 mls/hr Ceftriaxone Sodium (Rocephin 1 Gram Ivpb) 1 gm in 100 mls @ 100 mls/hr IVPB DAILY [facility] PRN Reason: Protocol Last Admin: 05/28/17 09:57 Dose: 100 mls/hr Lisinopril (Zestril) 2.5 mg PO DAILY [facility] Last Admin: 05/28/17 09:58 Dose: 2.5 mg Morphine Sulfate (Morphine) 2 mg IVP Q4H PRN PRN Reason: Pain, severe (8-10) Last Admin: 05/29/17 05:47 Dose: 2 mg Nystatin (Nystatin Oral Susp) 5 ml PO QID [facility] Last Admin: 05/28/17 22:23 Dose: 5 ml Ondansetron HCl (Zofran Inj) 4 mg IVP Q4H PRN PRN Reason: Nausea/Vomiting Last Admin: 05/29/17 05:51 Dose: 4 mg Pantoprazole Sodium (Protonix Ec Tab) 40 mg PO 0600 [facility] Last Admin: 05/29/17 05:55 Dose: 40 mg Polyethylene Glycol (Miralax) 17 gm PO DAILY [facility] Last Admin: 05/28/17 09:58 Dose: 17 gm Potassium Chloride (K-Dur 20 Meq Er Tab) 20 meq PO BID [facility] Last Admin: 05/28/17 17:18 Dose: 20 meq Potassium Phos/Sodium Phos (Neutra-Phos) 1 pkt PO BID [facility] Last Admin: 05/28/17 17:18 Dose: 1 pkt Spironolactone (Aldactone) 25 mg PO BID [facility] Last Admin: 05/28/17 17:18 Dose: 25 mg Sucralfate (Carafate Oral Susp) 1 gm PO BID [facility] Last Admin: 05/28/17 17:18 Dose: 1 gm Ursodiol (Actigall) 300 mg PO DAILY [facility] Last Admin: 05/28/17 09:59 Dose: 300 mg - Labs Labs: 05/29/17 07:00 05/29/17 07:00 PT 19.0 SECONDS (9.4-12.5) H 05/19/17 08:20 INR 1.64 (0.93-1.08) H 05/19/17 08:20 APTT 30.4 Seconds (25.1-36.5) 05/19/17 08:20 - Constitutional Appears: Cachectic, Chronically Ill - Head Exam Head Exam: NORMAL INSPECTION - ENT Exam ENT Exam: Mucous Membranes Moist - Neck Exam Neck Exam: absent: Meningismus - Respiratory Exam Respiratory Exam: Decreased Breath Sounds - Cardiovascular Exam Cardiovascular Exam: +S1, +S2 - GI/Abdominal Exam GI & Abdominal Exam: Distended, Soft. absent: Firm, Tenderness, Rebound Assessment and Plan - Assessment and Plan (Free Text) Plan: Assessment acute cholecystitis, slowly improving with conservative therapy colonic malignancy with liver metastases with ascites S/P paracentesis endometriosis uterine fibroids S/P removal Plan continue Rocephin and Flagyl (day 9) and will continue to observe - should complete 14 days of antibiotics and can be switched to PO Cefpodoxime and Flagyl to complete therapy when ready for discharge overall prognosis is poor
--- NOTE | 2017-05-29 17:30 | PN ---
DATE: 05/29/2017 SUBJECTIVE: The patient is seen, sitting in bed. She is awake. She is alert. She complains feeling tired. PHYSICAL EXAMINATION: GENERAL: Elderly lady, sitting in bed. VITAL SIGNS: Blood pressure 131/80, heart rate 113, respiratory rate 20, temperature 98.7. HEENT: Normocephalic, atraumatic, positive pallor. NECK: Supple, no JVD. LUNGS: Bilateral equal air entry, bilateral equal expansion. CARDIAC: S1 and S2, regular rate and rhythm, no murmur, no rub. ABDOMEN: Obese, distended, soft, nontender, bowel sounds present. EXTREMITIES: 2+ pitting edema of the lower extremities. INTAKE AND OUTPUT: 3680/500. LABORATORY DATA: WBC 16, hemoglobin 11, hematocrit 33, and platelets 209. Sodium 135, potassium 4.2, chloride 102, CO2 of 23. BUN 7, creatinine 0.5. Glucose 113. Calcium 8.5. Total bili 2.3, AST 121, ALT 33. Blood cultures, no growth. CURRENT MEDICATIONS: Actigall, Aldactone 25 b.i.d., Carafate, Colace, Drisdol, Duragesic, Famvir, metronidazole, heparin, potassium 20 mEq b.i.d., Lasix 40 IV daily, MiraLax, morphine, potassium phosphate, nystatin, Protonix, Rocephin, Zestril 2.5, and Zofran. ASSESSMENT: 1. Mild hyponatremia. 2. Hypokalemia, resolved. 3. Edema. 4. Stage IV colon cancer with liver metastases. 5. Ascites, status post large volume paracentesis. 6. Elevated liver function tests. 7. Leukocytosis. PLAN: 1. Continue Lasix 40 mg IV daily. 2. Change potassium supplementation to once a day since patient is also on Aldactone. 3. Monitor electrolytes closely. 4. Keep O's greater than I's. 5. Continue antibiotics as per ID recommendations. Valeria Dominguez MD
[2017-05-30] MEDS: Morphine 2 mg/ml ISec IVP PRN ×3 (02:22→23:13)
--- NOTE | 2017-05-30 04:08 | PN ---
DATE: 05/29/2017 ONCOLOGY PROGRESS NOTE LOCATION: Patient is in room 369, bed 2. SUBJECTIVE: The patient is seen sitting up in bed. She is awake. Family is around the bedside. Complaining of feeling tired, has still been requiring narcotics because of right upper quadrant pain. Patient was able to walk with assistant store manager operations when therapy came up and she was able to walk up to 15 feet. Still has a lot of significant abdominal complaints with gurgling sounds and abdominal cramps, but has been having bowel movements. She is a whole lot better since her tap, which was done yesterday where the drain was 4.5 liters. Patient has still been getting IV diuretics. Urine is still dark in color, but better than before. The patient was able to eat something and keep her food down without any nausea or vomiting. No fevers. No chills. Pain on pain scale of 0 to 10 is around 3 to 4. PHYSICAL EXAMINATION: GENERAL: The patient is awake, alert and oriented, in no significant distress. Rheems muscle wasting is noted. VITAL SIGNS: Stable. Blood pressure is 131/80, heart rate is 113, respirations 20, T max is 98.4. HEENT: Head is normocephalic and atraumatic. Conjunctivae are pale. Sclerae is anicteric. Pupils are equally reactive to light and accommodation. Examination of the oropharynx reveals no oropharyngeal lesions. Tongue is moist. No ulcerations are noted. NECK: Supple. There is no adenopathy. No jugular venous distention noted. LUNGS: Clear to percussion and auscultation. HEART: Examination of the heart reveals PMI to be in the fifth intercostal space inside the midclavicular line. S1 and S2 are normal. No gallop or murmur is heard. ABDOMEN: Soft, protuberant, distended. Ascites is easily demonstrable. Patient has right upper quadrant discomfort, though the tenderness has significantly improved. She has still gotten the IV antibiotics for her cholecystitis. EXTREMITIES: Reveal 2+ pitting edema of the lower extremities. INTAKE AND OUTPUT: Intake reveals 3.680, output is 500. LABORATORY DATA: Reveals a white count of 16, hemoglobin 11, hematocrit 33, and platelet count 209. Sodium is 135, potassium 4.2, chloride 102, CO2 of 23, BUN of 7, creatinine 0.5, glucose of 113, calcium of 8.5. Total bili is 2.3 with an AST of 121, ALT of 33. Blood cultures have been negative. CURRENT MEDICATIONS: Are reviewed. She is on Actigall, Aldactone 25 b.i.d., Carafate, Colace, Drisdol, Duragesic 12 mcg an hour, Famvir, metronidazole, heparin, potassium 20 mEq b.i.d., Lasix 40 IV daily, MiraLax, morphine IV p.r.n., potassium phosphate, nystatin, Protonix, Rocephin, Zestril, and Zofran. ASSESSMENT NOTES AND PLAN: Patient has metastatic progressive stage IV carcinoma of the colon in the background of having positive HIDA scan, signs and symptoms of acute cholecystitis, on antibiotics; hypokalemia, which has resolved; mild hyponatremia; edema; ascites, status post paracentesis, a drain of 4.5 liters, treated with IV Lasix and albumin, have normal LFTs related to a combination of factors including metastatic liver disease, currently started on Stivarga 160 mg once a day. Patient is going to be on for the multi-kinase inhibitor directed towards the metastatic disease. Patient was on Zofran prior to taking of the Stivarga. I am going to keep the patient on Stivarga for at least 5 to 6 days, see how the patient does. Without nausea, without vomiting, if the pain decreases and oral intake increases, we will be able to send her home and continue the patient on outpatient management. Currently, the patient's condition is such that she still requires IV narcotics. So, we are going to monitor her oral intake at this point in time as she is only taking Ensure and liquids for nutritional purposes. Hopefully, she will have a turn around over the next 2 to 3 days at which point we can make decisions for outpatient management. Labs for a.m. have been requested. Continue to monitor her for the next 72 hours. Time spent with the patient was greater than 45 minutes, out of which more than 50% of the time was spent with the patient with [id number] encounter, encouraging, counseling, and telling her about the overall prognosis and what our treatment plans are for the immediate future. Prognosis is guarded but have been cautiously optimistic with the patient, especially with the new initiation of this drug, called Tiana. Thalia Pretty MD [facility] # [id number]
[2017-05-30] MEDS: metroNIDAZOLE IV 500 mg/100 ml 500 MG/100 ML BAG IVPB SCH ×3 (06:00→21:40)
[2017-05-30] MEDS: Pantoprazole 40 mg EC Tab PO SCH (06:00)
[2017-05-30 08:56] LABS: BASO # 0.04 K/mm3 (0.0-2.0); BASO % 0.2 % (0.0-3.0); EOS % 0.1 % (1.5-5.0); GRAN # 15.06 (1.4-6.5); GRAN % 80.8 % (50.0-68.0); HEMOGLOBIN 11.1 g/dL (12.0-16.0); LYMPH # 0.8 (1.2-3.4); LYMPH % 4.2 % (22.0-35.0); MEAN CELL VOLUME 81.6 fl (80.0-105.0); MEAN CORPUSCULAR HEMOGLOBIN 27.3 pg (25.0-35.0); MEAN CORPUSCULAR HGB CONC 33.4 g/dl (31.0-37.0); MEAN PLATELET VOLUME 9.4 fl (7.0-11.0); MONO # 2.8 (0.1-0.6); MONO % 14.7 % (1.0-6.0); PLATELET COUNT 214 10^3/uL (120.0-450.0); RBC 4.07 10^6/uL (3.5-6.1); RED CELL DISTRIBUTION WIDTH 19.8 % (11.5-14.5); WHITE BLOOD COUNT 18.7 10^3/ul (4.5-11.0)
[2017-05-30 09:20] LABS: ALB/GLOB RATIO 0.8 (1.1-1.8); ALBUMIN 2.8 g/dL (3.0-4.8); ALT/SGPT 34 U/L (7-56); AST/SGOT 142 U/L (14-36); BLOOD UREA NITROGEN 9 mg/dL (7-21); CALCIUM 8.5 mg/dL (8.4-10.5); GFR AFRICAN-AMERICAN > 60; GFR NON-AFRICAN AMERICAN > 60
[2017-05-30 09:24] LABS: ATYPICAL LYMPHOCYTE 3 % (0.0-0.0); HYPOCHROMIA SLIGHT; LYMPHOCYTE 9 % (22.0-35.0); MONOCYTE 6 % (1.0-6.0); NEUTROPHIL 82 % (50.0-70.0); PLATELET ESTIMATE NORMAL (NORMAL)
[2017-05-30 09:25] LABS: ANISOCYTOSIS 1+; MICROCYTOSIS 1+
[2017-05-30] MEDS: Nystatin 100,000 Units/ml Oral Susp 5 ml UD PO SCH ×4 (09:33→21:40)
[2017-05-30] MEDS: Sucralfate 1 gm/10 ml Oral Susp UD PO SCH ×2 (09:33→17:23)
[2017-05-30] MEDS: Potassium & Sodium Phosphate PO SCH ×2 (09:33→17:23)
[2017-05-30] MEDS: POLYETHYLENE GLYCOL 3350 17 GM/Dose PACKET PO SCH (09:33)
[2017-05-30] MEDS ORDERED: Potassium Chloride 20 mEq ER Tab PO SCH (10:00)
[2017-05-30] MEDS: cefTRIAXone 1 gm 1 GM/100 ML BAG IVPB SCH (10:42)
[2017-05-30] MEDS: STIVARGA 40 MG PO SCH (11:33)
--- NOTE | 2017-05-30 12:24 | PN ---
DATE: SUBJECTIVE: The patient is currently seen lying comfortably in bed on 3R. She states that she had diuresed successfully with IV Lasix over the last several days. Her lower extremity edema has almost completely resolved. She also has less discomfort from her ascites. MEDICATIONS Medication list reviewed. The patient is on Actigall, Aldactone, Carafate, Colace, vitamin D, Duragesic, Famvir, Flagyl, heparin, Stivarga, potassium, IV Lasix, MiraLax, morphine p.r.n., Neutra-Phos, nystatin, Protonix, IV Rocephin, lisinopril, and Zofran. OBJECTIVE INTAKE/OUTPUT: Intake is 3680, output 500. VITAL SIGNS: Blood pressure 126/80, temperature 99.3, respiratory rate is 18 with a pulse of 112. Pulse ox is 98%. HEENT: Exam shows her to be normocephalic, atraumatic. Conjunctivae are pink. Sclerae are nonicteric. NECK: Supple. No neck vein distention. CHEST: Clear to auscultation and percussion. No rales. No rhonchi or wheezing. Positive port, right chest wall. CARDIOVASCULAR: Regular rate and rhythm without audible murmurs, rubs or gallops. ABDOMEN: Mildly distended. Positive ascites. Bowel sounds normal. No rebound or guarding or masses. Mild tenderness over her right upper quadrant. EXTREMITIES: Show trace nonpitting edema of her lower extremity with the patient lying supine in bed. No cyanosis or clubbing. LABORATORY DATA AND IMAGING: Labs from yesterday: White blood cell count 16.2, hemoglobin 11.0, platelet count is 209,000. Chemistries from yesterday showed normal electrolytes. BUN 7 with a creatinine of 0.5. Glucose is 113. Mild elevation of bilirubin at 2.3. Mild elevation of her liver enzymes. Albumin is 2.7. Microbiology, all blood cultures are negative at 3 days. ASSESSMENT 1. Normal renal parameters. 2. Acute cholecystitis. The patient is not a surgical candidate. She is being treated conservatively with IV antibiotic therapy. She still continues to have mild right upper quadrant pain. Her white count remains elevated. 3. History of stage IV colon cancer with liver metastases. The patient is being evaluated by Dr. Pretty. 4. Past history of borderline hyponatremia; currently, her sodium level is acceptable at 135. 5. Lower extremity edema and ascites. The patient will continue combination therapy with IV Lasix and p.o. Aldactone. Her potassium level is excellent at 4.2. The patient may continue to receive on an as-needed basis extra potassium supplements. Once we are comfortable that her lower extremity edema has completely resolved, the patient may be switched over to oral Lasix therapy. PLAN 1. Continue the patient off IV fluids. 2. Continue to monitor accurate Is and Os. She had been in negative fluid balance over the last several days, but over the last 24 hours, Is and Os are recording positive fluid balance. 3. Continue both p.o. Aldactone with p.o. Lasix along with IV Lasix. 4. Continue to monitor labs on a daily basis in light of the fact that she is on diuretic therapy with the need for potassium supplements. 5. Complete a course of IV antibiotic therapy for treatment of acute cholecystitis as per Infectious Disease. Yang Cuellar MD
--- NOTE | 2017-05-31 01:36 | PN ---
DATE: SUBJECTIVE: Patient is in bed, in no acute distress. Patient was seen earlier today in [facility], bed 2. PHYSICAL EXAMINATION: VITAL SIGNS: Temperature is 98, blood pressure is 109/70, respiratory rate 16. HEENT: Unremarkable. NECK: Supple. LUNGS: Decreased breath sounds. HEART: Normal S1 and S2. ABDOMEN: Soft. LABORATORY DATA: Reveals a white count of 18,700, hemoglobin 11, platelets of 214. Chemistries, BUN of 9, creatinine 0.7. Urinalysis is noted. Microbiology reveals blood cultures, no growth. ASSESSMENT AND PLAN: This is a 61-year-old, who has acute cholecystitis, slowly improving with conservative management, colonic malignancy, liver metastasis with ascites and status post paracentesis, endometriosis, on day #10 of ceftriaxone and Flagyl, maybe able to switch to p.o. cefpodoxime and Flagyl. We will follow with you. Dorian Solis MD
[2017-05-31] MEDS: Morphine 2 mg/ml ISec IVP PRN (03:30)
--- NOTE | 2017-05-31 04:54 | PN ---
DATE: 05/30/2017 SUBJECTIVE: This patient was seen and evaluated earlier today. Patient is feeling slightly better, tolerating the diet. PHYSICAL EXAMINATION: VITAL SIGNS: Temperature is 98.3, blood pressure 109/70, pulse 94, respirations 19, O2 saturation 95%. HEENT: Atraumatic, anicteric. NECK: Supple. HEART: S1 and S2 heard. LUNGS: Bilateral air entry present. ABDOMEN: Softly distended, some mild tenderness on deep palpation EXTREMITIES: Mild edema bilaterally present. LABORATORY DATA: WBC count has increased to 8.7, hemoglobin 11.1, hematocrit 32.2, platelets 214. Chemistries: Total bilirubin is increased to 2.6, AST 142, ALT 34, alkaline phosphatase 267. IMPRESSION: This is a 61-year-old patient with metastatic colorectal cancer, was admitted with acute cholecystitis, on antibiotics. Patient has ascites, status post large volume paracentesis, and presently on chemotherapy, Stivarga. Patient does have an elevated total bilirubin and also patient has increasing LFTs and also WBC count, on ceftriaxone. RECOMMENDATIONS: We will request stool for C. diff. We will close follow up with WBC count. We may consider repeating the CT if WBC count continues to show upward trend. The real concern is that the patient was evaluated by the Surgery in the past and they are concerned about carcinomatosis and surgical option was not recommended at that time. Cholecystostomy is also going to be a problem in view of the ascites. We will continue to closely follow up this care and will have a detailed discussion with Dr. Pretty today. Joi Turk MD MTDJames
[2017-05-31] MEDS: metroNIDAZOLE IV 500 mg/100 ml 500 MG/100 ML BAG IVPB SCH ×3 (05:19→21:20)
[2017-05-31] MEDS: Pantoprazole 40 mg EC Tab PO SCH (05:19)
--- NOTE | 2017-05-31 05:28 | PN ---
DATE: ONCOLOGY PROGRESS NOTE LOCATION: Patient is in room 369. PROBLEMS: This is a 61-year-old female with stage IV metastatic colon carcinoma with documented intraabdominal carcinomatosis, progressive liver metastasis, admitted with right upper quadrant pain, nausea, vomiting, leukocytosis, positive HIDA scan, treated for acute cholecystitis, status post paracentesis, drained about 4.5 liters, currently on a pill called Stivarga 160 mg once a day, she is on to day #4, still in the hospital, as the nutritional status is poor with intermittent episodes of nausea, has started taking liquids in the form of Ensure. The pain is being controlled with fentanyl patches and intermittent doses of IV morphine intravenously. SUBJECTIVE: Patient is currently seen lying comfortably in bed. She said she walked around the nursing station once today. She has diuresed successfully with IV Lasix, received IV albumin as well. Lower extremity edema has substantially decreased. Still has right upper quadrant discomfort and abdominal cramps. On a pain scale of 0-10, it is around 3. MEDICATIONS: Patient's medications were reviewed. She is on Actigall, Aldactone, Carafate, Colace, vitamin D, Duragesic, Famvir, Flagyl, heparin, Stivarga, potassium, IV Lasix, MiraLax, morphine, Neutra-Phos, nystatin, Protonix, IV Rocephin, lisinopril, and Zofran. OBJECTIVE: GENERAL: Patient's intake is 3680, output is 500. VITAL SIGNS: Stable. Blood pressure 126/80, T-max is 99, respirations 18 with a pulse of 112. Pulse ox is 99% on room air. HEENT: Head is normocephalic and atraumatic. Conjunctivae are pale. Sclerae is anicteric. NECK: Supple. There is no jugular venous distension noted. LUNGS: Clear to percussion and auscultation without any adventitious sounds. No rales or rhonchi are heard. Patient has a port in the right chest wall. CARDIOVASCULAR SYSTEM: Reveals S1 and S2 to be normal. No gallop or murmurs heard. ABDOMEN: Mildly distended with ascites as listed above. Bowel sounds are present. Right upper quadrant tenderness is noted. No rebound, rigidity or guarding is noted. EXTREMITIES: Shows trace pitting edema of the lower extremities, so the patient is lying in bed. No cyanosis or clubbing is noted. LABORATORY DATA: From yesterday reveals a white count of 16, hemoglobin 11, platelet count 209,000. Electrolytes; BUN is 7, creatinine 0.5, glucose is 113. Bilirubin is 2.3 with mild elevation of liver enzyme. Albumin is 2.7. All blood cultures are negative. ASSESSMENT: Patient has stage IV metastatic colorectal malignancy with intraabdominal carcinomatosis, liver metastasis, positive HIDA scan, clinical cholecystitis being treated with antibiotics, started on p.o. Stivarga - one of the newer multi-kinase inhibitor for metastatic colon cancer, getting the medicines on her own from an outside pharmacy that is being administered in the hospital, and patient is tolerating the treatment so well without any significant nausea or vomiting. Patient is getting Zofran prior to taking the pill, first thing in the morning. PLAN: Patient is off the IV fluids. We will continue to monitor Is and Os. Continue Aldactone p.o. with Lasix IV. Continue to monitor electrolytes, and more importantly, liver functions while on the Stivarga. We will complete the course of IV antibiotics and we will continue to monitor the liver functions at least for a period of 5-7 days while in the Stivarga before making plans for the patient to be discharged. Patient's oral intake is being monitored at this time, at the same time the IV narcotic intake is also being monitored. is not being increased because of fear of accumulation because of significant liver dysfunction. Time spent with the patient was greater than 45 minutes, out of which more than 50%of the time was spent in [id number] encounter, educating the patient, discussing with the patient regarding overall prognosis, treatment plan, and possible outcomes. Thalia Pretty MD
[2017-05-31 06:14] LABS: HEMOGLOBIN 11.4 g/dL (12.0-16.0); MEAN CELL VOLUME 81.4 fl (80.0-105.0); MEAN CORPUSCULAR HEMOGLOBIN 27.5 pg (25.0-35.0); MEAN CORPUSCULAR HGB CONC 33.7 g/dl (31.0-37.0); MEAN PLATELET VOLUME 9.3 fl (7.0-11.0); RBC 4.15 10^6/uL (3.5-6.1); RED CELL DISTRIBUTION WIDTH 20.3 % (11.5-14.5)
[2017-05-31 06:35] LABS: ALB/GLOB RATIO 0.8 (1.1-1.8); ALBUMIN 2.8 g/dL (3.0-4.8); ALT/SGPT 33 U/L (7-56); AST/SGOT 146 U/L (14-36); BLOOD UREA NITROGEN 13 mg/dL (7-21); CALCIUM 8.2 mg/dL (8.4-10.5); GFR AFRICAN-AMERICAN > 60; GFR NON-AFRICAN AMERICAN 56; MAGNESIUM 1.4 mg/dL (1.7-2.2)
[2017-05-31] MEDS ORDERED: Magnesium Sulfate 2 GM in Sodium Chloride 0.9% 100 ML IV ONE (09:36)
[2017-05-31] MEDS ORDERED: Sodium Phosphate 15 MMOLE in Sodium Chloride 0.9% 250 ML IVPB ONE (09:36)
[2017-05-31] MEDS: Sucralfate 1 gm/10 ml Oral Susp UD PO SCH ×2 (09:56→17:13)
[2017-05-31] MEDS: POLYETHYLENE GLYCOL 3350 17 GM/Dose PACKET PO SCH (09:57)
[2017-05-31] MEDS: Potassium & Sodium Phosphate PO SCH ×2 (09:57→17:13)
[2017-05-31] MEDS: Nystatin 100,000 Units/ml Oral Susp 5 ml UD PO SCH ×4 (09:57→21:20)
[2017-05-31] MEDS: cefTRIAXone 1 gm 1 GM/100 ML BAG IVPB SCH (09:57)
[2017-05-31] MEDS: Ergocalciferol 50,000 Intl Units Cap PO SCH (09:57)
--- NOTE | 2017-05-31 10:25 | PN ---
DATE: SUBJECTIVE: The patient is currently seen sitting up in bed. She appears to be in no acute distress. She still has mild edema of her lower extremity. She is complaining of some abdominal discomfort from her ascites. She does continue on IV antibiotic therapy for acute cholecystitis. Her BUN and creatinine have remained normal. Of note, her phosphorus and magnesium level are low and the patient requested supplementation with IV rather than p.o. supplements. MEDICATIONS: Medication list reviewed. The patient is on Actigall, Aldactone, Carafate, Colace, vitamin D, Duragesic, Famvir, Flagyl, heparin, Stivarga, oral potassium, IV Lasix, MiraLax, morphine, Neutra-Phos, nystatin, Protonix, Rocephin, lisinopril, and Zofran p.r.n. OBJECTIVE INTAKE/OUTPUT: Intake is 1420, output is 1630. VITAL SIGNS: Blood pressure 144/72, temperature 98.7, respiratory rate 19 with a pulse of 111. HEENT: Exam shows her to be normocephalic, atraumatic. Conjunctivae are pink. Sclerae are nonicteric. NECK: Supple. No neck vein distention. CHEST: Clear to auscultation and percussion. No rales. No rhonchi or wheezing. She does have a port in her right chest wall. CARDIOVASCULAR: Shows a regular rate and rhythm without audible murmurs, rubs or gallops. ABDOMEN: Mildly distended. Positive ascites. Bowel sounds are normal. Mild tenderness on palpation of her right upper quadrant. No rebound, guarding or masses. EXTREMITIES: Show trace to 1+ nonpitting edema of her lower extremity with the patient lying supine in bed. No cyanosis or clubbing. LABORATORY DATA AND IMAGING: CBC: White blood cell count today 18.0, hemoglobin 11.4, platelet count is 230,000. Chemistries: Potassium today is 5.2. Sodium is 134. BUN is 13 with a creatinine of 1.0. Calcium 8.2, phosphorus low at 2.2. Magnesium is 1.4. Bilirubin is mildly elevated at 2.8 and rising. Liver enzymes remain mildly elevated. Albumin is 2.8. ASSESSMENT 1. Normal renal parameters. BUN and creatinine remain normal. 2. [id number] hyperkalemia. This is likely secondary to potassium supplements and Aldactone. These medicines will be adjusted. 3. History of acute cholecystitis. The patient was deemed not to be a surgical candidate. She is being treated conservatively with IV antibiotic therapy as she continues to improve slowly. 4. History of stage IV colon cancer with liver metastases. The patient is being followed by her oncologist, Dr. Pretty. 5. History of borderline hyponatremia. Sodium level has remained stable at 134. 6. History of lower extremity edema and ascites. The patient would rather continue on IV Lasix therapy rather than take oral Lasix to help keep her lower extremity edema and ascites to a tolerable level. PLAN 1. The patient will continue off IV fluids. 2. We will hold Aldactone in light of her potassium level of 5.2. 3. Continue IV Lasix therapy with a possible switch-over to oral Lasix therapy soon. 4. Supplement phosphorus and magnesium as noted above. 5. Complete a course of IV antibiotic therapy for acute cholecystitis under the guidance of Infectious Disease. Yang Cuellar MD
[2017-05-31] MEDS: STIVARGA 40 MG PO SCH (10:59)
[2017-06-01] MEDS: Morphine 2 mg/ml ISec IVP PRN ×5 (00:07→23:41)
--- NOTE | 2017-06-01 02:08 | PN ---
DATE: 05/31/2017 SUBJECTIVE: Patient is in bed, in no acute distress, nontoxic, was seen early this morning in room 369. PHYSICAL EXAMINATION: VITAL SIGNS: Temperature is 98, blood pressure is 128/70, and respiratory rate of 18. HEENT: Unremarkable. NECK: Supple. LUNGS: Have decreased breath sounds. HEART: Normal S1 and S2. ABDOMEN: Soft and nontender. LABORATORY DATA: Reveals the patient's white count of 18,000, hemoglobin of 11, platelets of 230. BUN of 13 and creatinine of 1.0. Blood cultures, no growth. ASSESSMENT AND PLAN: This is a 61-year-old female seen earlier today, who had acute cholecystitis, improving with conservative management; colonic malignancy with liver metastasis and ascites, status post paracentesis, on day #11 of ceftriaxone and Flagyl. We will discontinue the Flagyl and the ceftriaxone; 11 days' is more than adequate therapy. We will follow with you. Dorian Solis MD
--- NOTE | 2017-06-01 04:27 | PN ---
DATE: 05/31/2017 SUBJECTIVE: This patient was seen and evaluated earlier today. The patient did have a bowel movement. Feels slightly better. PHYSICAL EXAMINATION: VITAL SIGNS: Temperature is 99, blood pressure 144/72, respirations 19, O2 saturation 96%. HEENT: The patient is jaundiced. NECK: Supple. HEART: S1 and S2 heard. LUNGS: Bilateral air entry present. Slightly reduced. ABDOMEN: Soft and there is ascites present. EXTREMITIES: Mild edema bilaterally present. LABORATORY DATA: The total bilirubin has gone up to 2.8, magnesium is 1.4, alkaline phosphatase 271. WBC count is 18.0, hemoglobin 11.14, hematocrit 33.8. IMPRESSION: This 61-year-old patient with metastatic colorectal cancer admitted with acute cholecystitis, on antibiotics. Has ascites, status post large volume paracentesis, and presently on chemotherapy, Stivarga. Patient does have elevated total bilirubin and also increasing WBC count. RECOMMENDATIONS: 1. Follow up of the stool for C. diff. 2. Follow up of the CBC and all LFTs. The patient need to complete the antibiotics per the chemotherapy course. The patient needs close monitoring of the LFTs. The patient was seen by the surgery and they are concerned about carcinomatosis and they did not recommend any cholecystectomy, did not want to pursue with the cholecystectomy. Discussed with the patient at length. The patient did have a history of constipation before, has received Relistor. Presently, bowel movements okay. Check stool for c.diff. We will continue to closely follow up care and suggest further management based on the clinical course. Joi Turk MD MTDJames
[2017-06-01] MEDS: Pantoprazole 40 mg EC Tab PO SCH (05:22)
[2017-06-01 07:10] LABS: HEMOGLOBIN 11.4 g/dL (12.0-16.0); MEAN CELL VOLUME 81.4 fl (80.0-105.0); MEAN CORPUSCULAR HEMOGLOBIN 27.2 pg (25.0-35.0); MEAN CORPUSCULAR HGB CONC 33.4 g/dl (31.0-37.0); MEAN PLATELET VOLUME 8.5 fl (7.0-11.0); RBC 4.19 10^6/uL (3.5-6.1); RED CELL DISTRIBUTION WIDTH 20.5 % (11.5-14.5); WHITE BLOOD COUNT 15.6 10^3/ul (4.5-11.0)
[2017-06-01 07:38] LABS: ALB/GLOB RATIO 0.7 (1.1-1.8); ALBUMIN 2.7 g/dL (3.0-4.8); ALT/SGPT 33 U/L (7-56); AST/SGOT 141 U/L (14-36); BLOOD UREA NITROGEN 14 mg/dL (7-21); CALCIUM 8.2 mg/dL (8.4-10.5); GFR AFRICAN-AMERICAN > 60; GFR NON-AFRICAN AMERICAN > 60; MAGNESIUM 1.8 mg/dL (1.7-2.2)
[2017-06-01] MEDS: Sucralfate 1 gm/10 ml Oral Susp UD PO SCH ×2 (09:17→17:18)
[2017-06-01] MEDS: Potassium & Sodium Phosphate PO SCH ×2 (09:17→17:17)
[2017-06-01] MEDS: POLYETHYLENE GLYCOL 3350 17 GM/Dose PACKET PO SCH (09:18)
[2017-06-01] MEDS: STIVARGA 40 MG PO SCH (09:18)
[2017-06-01] MEDS: Nystatin 100,000 Units/ml Oral Susp 5 ml UD PO SCH ×4 (09:18→21:42)
--- NOTE | 2017-06-01 09:45 | CP.PCM.PN ---
Subjective - Date & Time of Evaluation Date of Evaluation: 06/01/17 Time of Evaluation: 07:10 - Subjective Subjective: Calvin iDll D.O. PGY-2, Internal Medicine Resident, Hem/Onc Progress Note 61 year old female with a PMH of Stage IV metastatic colon cancer with intraabdominal carcinomatosis and liver metastases who presents for RUQ pain associated with nausea, vomiting, found to have acute cholecystitis which is being managemed medically. Patient was seen and examined at bedside. Patient states that since she was started on her new chemo regimen she has been having some issues mostly with fatigue. Patient admits that she still has some abdominal pain at times which travels diffusely but that it has been well controlled when she takes medications. She is comfortable at this time. Patient otherwise denies any complaints. Objective - Vital Signs/Intake and Output Vital Signs (last 24 hours): Temp Pulse Resp BP Pulse Ox 97.6 F 104 H 18 126/79 98 06/01/17 08:56 06/01/17 08:56 06/01/17 08:56 06/01/17 09:18 06/01/17 08:56 Intake and Output: 06/01/17 06/01/17 06:59 18:59 Intake Total 1320 Output Total 1175 Balance 145 - Medications Medications: Current Medications Docusate Sodium (Colace) 100 mg PO BID [facility] Last Admin: 06/01/17 09:18 Dose: 100 mg Ergocalciferol (Drisdol 50,000 Intl Units Cap) 1 cap PO SUN [facility] Last Admin: 05/31/17 09:57 Dose: 1 cap Famciclovir (Famvir) 500 mg PO BID [facility] Last Admin: 06/01/17 09:18 Dose: 500 mg Fentanyl (Duragesic) 1 patch TD Q72H [facility] Last Admin: 05/29/17 21:44 Dose: 1 patch Furosemide (Lasix) 40 mg IVP DAILY [facility] Last Admin: 06/01/17 09:18 Dose: 40 mg Heparin Sodium (Porcine) (Heparin) 5,000 units SC Q12 [facility] PRN Reason: Protocol Last Admin: 06/01/17 09:18 Dose: 5,000 units Home Med (Home Med) 0 unit PO DAILY [facility] Last Admin: 06/01/17 09:18 Dose: 160 unit Lisinopril (Zestril) 2.5 mg PO DAILY [facility] Last Admin: 06/01/17 09:17 Dose: 2.5 mg Morphine Sulfate (Morphine) 2 mg IVP Q4H PRN PRN Reason: Pain, severe (8-10) Last Admin: 06/01/17 05:20 Dose: 2 mg Nystatin (Nystatin Oral Susp) 5 ml PO QID [facility] Last Admin: 06/01/17 09:18 Dose: 5 ml Ondansetron HCl (Zofran Inj) 4 mg IVP Q4H PRN PRN Reason: Nausea/Vomiting Last Admin: 06/01/17 05:21 Dose: 4 mg Pantoprazole Sodium (Protonix Ec Tab) 40 mg PO 0600 [facility] Last Admin: 06/01/17 05:22 Dose: 40 mg Polyethylene Glycol (Miralax) 17 gm PO DAILY [facility] Last Admin: 06/01/17 09:18 Dose: 17 gm Potassium Phos/Sodium Phos (Neutra-Phos) 1 pkt PO BID [facility] Last Admin: 06/01/17 09:17 Dose: 1 pkt Sucralfate (Carafate Oral Susp) 1 gm PO BID [facility] Last Admin: 06/01/17 09:17 Dose: 1 gm Ursodiol (Actigall) 300 mg PO DAILY [facility] Last Admin: 06/01/17 09:17 Dose: 300 mg - Labs Labs: 06/01/17 07:00 06/01/17 07:00 PT 19.0 SECONDS (9.4-12.5) H 05/19/17 08:20 INR 1.64 (0.93-1.08) H 05/19/17 08:20 APTT 30.4 Seconds (25.1-36.5) 05/19/17 08:20 - Constitutional Appears: No Acute Distress, Chronically Ill - Head Exam Head Exam: ATRAUMATIC, NORMOCEPHALIC - Eye Exam Eye Exam: EOMI, PERRL - ENT Exam ENT Exam: Mucous Membranes Moist - Neck Exam Neck Exam: Normal Inspection - Respiratory Exam Respiratory Exam: Clear to Ausculation Bilateral. absent: Rhonchi, Wheezes - Cardiovascular Exam Cardiovascular Exam: RRR, +S1, +S2 - GI/Abdominal Exam GI & Abdominal Exam: Distended, Soft, Tenderness (mild lower abdominal), Normal Bowel Sounds - Extremities Exam Extremities Exam: Pedal Edema (+2). absent: Tenderness - Neurological Exam Neurological Exam: Alert, Awake, CN II-XII Intact, Oriented x3 - Psychiatric Exam Psychiatric exam: Normal Affect, Normal Mood - Skin Skin Exam: Dry, Warm Assessment and Plan - Assessment and Plan (Free Text) Assessment: 61 year old female with a PMH of Stage IV metastatic colon cancer with intraabdominal carcinomatosis and liver metastases who presents for RUQ pain associated with nausea, vomiting, found to have acute cholecystitis which is being managemed medically. Plan: Stave IV colorectal CA with abdominal carcinomatosis and liver metastases Gastritis Acute cholecystitis Severe abdominal pain Ascites s/p paracentesis w/ 4.8L removal Edema HTN Hypophosphatemia Constipation On Stivarga Following LFTs closely Pain controlled on current regimen with fentanyl and morphine GI, ID, nephro following, recs appreciated Continue gentle diuresis with lasix IV, aldactone on hold given previous hyperkalemia Will give albumin 25g today and 25g tomorrow before lasix and monitor ascites Will get ammonia for tomorrow AM Continue neutraphos Finished 11 day course of ceftriaxone and flagyl Improved constipation s/p relistor, however had some diarrhea, C diff pending, diarrhea is however a possible side effect of stivarga Patient was seen and examined and case was discussed in detail with attending physician
[2017-06-01] MEDS ORDERED: Albumin Human 25% (12.5 gm/50 ml) IV ONE ×3 (12:19→12:30)
--- NOTE | 2017-06-01 17:01 | CP.PCM.PN ---
Subjective - Date & Time of Evaluation Date of Evaluation: 06/01/17 Time of Evaluation: 10:05 - Subjective Subjective: Still with some abdominal pain, no fevers, feels weak. Objective - Vital Signs/Intake and Output Vital Signs (last 24 hours): Temp Pulse Resp BP Pulse Ox 97.6 F 104 H 18 126/79 98 06/01/17 08:56 06/01/17 08:56 06/01/17 08:56 06/01/17 09:18 06/01/17 08:56 Intake and Output: 06/01/17 06/01/17 06:59 18:59 Intake Total 1320 Output Total 1175 Balance 145 - Medications Medications: Current Medications Docusate Sodium (Colace) 100 mg PO BID [facility] Last Admin: 06/01/17 09:18 Dose: 100 mg Ergocalciferol (Drisdol 50,000 Intl Units Cap) 1 cap PO SUN [facility] Last Admin: 05/31/17 09:57 Dose: 1 cap Famciclovir (Famvir) 500 mg PO BID [facility] Last Admin: 06/01/17 09:18 Dose: 500 mg Fentanyl (Duragesic) 1 patch TD Q72H [facility] Last Admin: 05/29/17 21:44 Dose: 1 patch Furosemide (Lasix) 40 mg IVP DAILY [facility] Last Admin: 06/01/17 09:18 Dose: 40 mg Heparin Sodium (Porcine) (Heparin) 5,000 units SC Q12 [facility] PRN Reason: Protocol Last Admin: 06/01/17 09:18 Dose: 5,000 units Home Med (Home Med) 0 unit PO DAILY [facility] Last Admin: 06/01/17 09:18 Dose: 160 unit Lisinopril (Zestril) 2.5 mg PO DAILY [facility] Last Admin: 06/01/17 09:17 Dose: 2.5 mg Morphine Sulfate (Morphine) 2 mg IVP Q4H PRN PRN Reason: Pain, severe (8-10) Last Admin: 06/01/17 09:39 Dose: 2 mg Nystatin (Nystatin Oral Susp) 5 ml PO QID [facility] Last Admin: 06/01/17 09:18 Dose: 5 ml Ondansetron HCl (Zofran Inj) 4 mg IVP Q4H PRN PRN Reason: Nausea/Vomiting Last Admin: 02/12/18 09:39 Dose: 4 mg Pantoprazole Sodium (Protonix Ec Tab) 40 mg PO 0600 [facility] Last Admin: 06/01/17 05:22 Dose: 40 mg Polyethylene Glycol (Miralax) 17 gm PO DAILY [facility] Last Admin: 06/01/17 09:18 Dose: 17 gm Potassium Phos/Sodium Phos (Neutra-Phos) 1 pkt PO BID [facility] Last Admin: 06/01/17 09:17 Dose: 1 pkt Sucralfate (Carafate Oral Susp) 1 gm PO BID [facility] Last Admin: 06/01/17 09:17 Dose: 1 gm Ursodiol (Actigall) 300 mg PO DAILY [facility] Last Admin: 06/01/17 09:17 Dose: 300 mg - Labs Labs: 06/01/17 07:00 06/01/17 07:00 PT 19.0 SECONDS (9.4-12.5) H 05/19/17 08:20 INR 1.64 (0.93-1.08) H 05/19/17 08:20 APTT 30.4 Seconds (25.1-36.5) 05/19/17 08:20 - Constitutional Appears: Chronically Ill - Head Exam Head Exam: NORMAL INSPECTION - ENT Exam ENT Exam: Mucous Membranes Moist - Neck Exam Neck Exam: absent: Meningismus - Respiratory Exam Respiratory Exam: Decreased Breath Sounds - Cardiovascular Exam Cardiovascular Exam: +S1, +S2 - GI/Abdominal Exam GI & Abdominal Exam: Distended, Soft. absent: Tenderness Assessment and Plan - Assessment and Plan (Free Text) Plan: Assessment acute cholecystitis, S/P conservative therapy with antibiotics colonic malignancy with liver metastases with ascites S/P paracentesis endometriosis uterine fibroids S/P removal Plan completed 11 days of Rocephin and Flagyl (day 9) - will continue to monitor off antibiotics since she is at risk for nosocomial infections overall prognosis is poor
--- NOTE | 2017-06-01 17:30 | PN ---
DATE: 06/01/2017 SUBJECTIVE: The patient is seen sitting in bed. She is awake. She is alert. She complains of some abdominal distention. She complains of edema. PHYSICAL EXAMINATION: GENERAL: Elderly lady sitting in bed. VITAL SIGNS: Blood pressure 126/79, heart rate 104, respiratory rate 18, temperature 97.6. HEENT: Normocephalic, atraumatic, positive pallor. NECK: Supple, no JVD. LUNGS: Bilateral equal entry, no rales. CARDIAC: S1 and S2, regular rate and rhythm, no murmur, no rub. ABDOMEN: Distended, soft, nontender, bowel sounds present. EXTREMITIES: A 2+ pitting edema of the lower extremities. INTAKE AND OUTPUT. 2765 and 1175. LABORATORY DATA: WBC 15.6, hemoglobin 11.4, hematocrit 34, platelets 226. Sodium 132, potassium 4.7, chloride 99, CO2 of 23, BUN 14, creatinine 0.8, glucose 96, calcium 8.2, phosphorus 2.3, magnesium 1.8. Total bilirubin 2.8, AST 141, ALT 33. CURRENT MEDICATIONS: Actigall, albumin, Carafate, Colace, Drisdol, Duragesic, Famvir, heparin, Lasix 40 IV daily, MiraLax, morphine, Neutra-Phos, nystatin, Zestril 2.5, and Zofran. ASSESSMENT: 1. Stage IV colon cancer with liver metastasis. 2. Acute cholecystitis. 3. Ascites. 4. Edema. 5. Hyponatremia. PLAN: 1. Continue IV Lasix. 2. Continue phosphate replacement. 3. Keep O's greater than I's. 4. Monitor electrolytes. Valeria Dominguez MD
--- NOTE | 2017-06-01 22:20 | PN ---
DATE:06/01/2017 SUBJECTIVE: This patient was seen and evaluated earlier today. The patient is tolerating the diet. She remains afebrile. PHYSICAL EXAMINATION: VITAL SIGNS: Temperature is 97.6, pulse 104, blood pressure is 126/79. HEENT: Atraumatic, anicteric. NECK: Supple. HEART: S1 and S2 heard. LUNGS: Bilateral air entry present, slightly reduced at the base. ABDOMEN: Soft. There is mild tenderness on deep palpation of the right upper quadrant area. There is ascites present. EXTREMITIES: Bilateral mild pedal edema present. LABORATORY DATA: Hemoglobin 11.4, hematocrit 34.1, WBC 15.6, platelets 226. BUN 14, creatinine 0.8. Total bilirubin is stable at 2.8. AST 141. ALT 33. Alkaline phosphatase 289. WBC 15.6, hemiglobin 11.4, hematocrit 34.1, platelets 226. IMPRESSION: This is a 61-year-old patient with metastatic colorectal cancer, admitted with acute cholecystitis, on antibiotics, has ascites, status post large volume paracentesis, presently on chemotherapy, Stivarga. The patient has now elevated total bilirubin. The WBC count has slightly decreased than yesterday. Has some loose bowel movements. The patient's stool for C. diff was negative. RECOMMENDATIONS: 1. Continue her antibiotics as per Infectious Disease. 2. Close followup of the LFTs. Thank you very much for allowing us to participate in the care of the patient. Joi Turk MD JOE
[2017-06-02] MEDS: Morphine 2 mg/ml ISec IVP PRN ×3 (06:10→22:24)
[2017-06-02] MEDS: Pantoprazole 40 mg EC Tab PO SCH (06:11)
[2017-06-02 06:49] LABS: HEMOGLOBIN 11.8 g/dL (12.0-16.0); MEAN CELL VOLUME 81.5 fl (80.0-105.0); MEAN CORPUSCULAR HEMOGLOBIN 27.3 pg (25.0-35.0); MEAN CORPUSCULAR HGB CONC 33.5 g/dl (31.0-37.0); RBC 4.32 10^6/uL (3.5-6.1); RED CELL DISTRIBUTION WIDTH 20.4 % (11.5-14.5); WHITE BLOOD COUNT 15.2 10^3/ul (4.5-11.0)
[2017-06-02] MEDS ORDERED: Albumin Human 25% (25 gm/100 ml) IV ONE (07:00)
[2017-06-02] MEDS ORDERED: Albumin Human 25% (12.5 gm/50 ml) IV ONE (07:30)
[2017-06-02 08:00] LABS: ALB/GLOB RATIO 0.7 (1.1-1.8); ALT/SGPT 30 U/L (7-56); AST/SGOT 153 U/L (14-36); BLOOD UREA NITROGEN 16 mg/dL (7-21); CALCIUM 8.6 mg/dL (8.4-10.5); GFR AFRICAN-AMERICAN > 60; GFR NON-AFRICAN AMERICAN > 60
[2017-06-02] MEDS: Sucralfate 1 gm/10 ml Oral Susp UD PO SCH ×2 (09:43→17:45)
[2017-06-02] MEDS: POLYETHYLENE GLYCOL 3350 17 GM/Dose PACKET PO SCH (09:43)
[2017-06-02] MEDS: Potassium & Sodium Phosphate PO SCH ×2 (09:44→17:46)
[2017-06-02] MEDS: Nystatin 100,000 Units/ml Oral Susp 5 ml UD PO SCH ×4 (09:44→22:00)
[2017-06-02] MEDS: STIVARGA 40 MG PO SCH (09:45)
--- NOTE | 2017-06-02 11:15 | CP.PCM.PN ---
Subjective - Date & Time of Evaluation Date of Evaluation: 06/02/17 Time of Evaluation: 07:20 - Subjective Subjective: Calvin Dill D.O. 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 Patient was seen and examined. Patient did have some pain shortly before being seen but states that the medications help. At times she admits that she tries not to take any of the pain medications and just bear the pain, but realized that she shouldn't have to suffer either. Patient is still fatigued but overall in good spirits. No more diarrhea. No fevers or chills. Objective - Vital Signs/Intake and Output Vital Signs (last 24 hours): Temp Pulse Resp BP Pulse Ox 98.3 F 109 H 20 131/82 96 06/02/17 08:47 06/02/17 08:47 06/02/17 08:47 06/02/17 09:44 06/02/17 08:47 Intake and Output: 06/02/17 06/02/17 06:59 18:59 Intake Total 540 Output Total 1100 Balance -560 - Medications Medications: Current Medications Docusate Sodium (Colace) 100 mg PO BID [facility] Last Admin: 06/02/17 09:49 Dose: Not Given Ergocalciferol (Drisdol 50,000 Intl Units Cap) 1 cap PO SUN [facility] Last Admin: 05/31/17 09:57 Dose: 1 cap Famciclovir (Famvir) 500 mg PO BID [facility] Last Admin: 06/02/17 09:44 Dose: 500 mg Fentanyl (Duragesic) 1 patch TD Q72H [facility] Last Admin: 06/01/17 21:55 Dose: 1 patch Furosemide (Lasix) 40 mg IVP DAILY [facility] Last Admin: 06/02/17 09:44 Dose: 40 mg Heparin Sodium (Porcine) (Heparin) 5,000 units SC Q12 [facility] PRN Reason: Protocol Last Admin: 06/02/17 09:44 Dose: 5,000 units Home Med (Home Med) 0 unit PO DAILY [facility] Last Admin: 06/02/17 09:45 Dose: 160 unit Lisinopril (Zestril) 2.5 mg PO DAILY [facility] Last Admin: 06/02/17 09:44 Dose: 2.5 mg Morphine Sulfate (Morphine) 2 mg IVP Q4H PRN PRN Reason: Pain, severe (8-10) Last Admin: 06/02/17 06:10 Dose: 2 mg Nystatin (Nystatin Oral Susp) 5 ml PO QID [facility] Last Admin: 06/02/17 09:44 Dose: 5 ml Ondansetron HCl (Zofran Inj) 4 mg IVP Q4H PRN PRN Reason: Nausea/Vomiting Last Admin: 06/02/17 06:15 Dose: 4 mg Pantoprazole Sodium (Protonix Ec Tab) 40 mg PO 0600 [facility] Last Admin: 06/02/17 06:11 Dose: 40 mg Polyethylene Glycol (Miralax) 17 gm PO DAILY [facility] Last Admin: 06/02/17 09:43 Dose: 17 gm Potassium Phos/Sodium Phos (Neutra-Phos) 1 pkt PO BID [facility] Last Admin: 06/02/17 09:44 Dose: 1 pkt Sucralfate (Carafate Oral Susp) 1 gm PO BID [facility] Last Admin: 06/02/17 09:43 Dose: 1 gm Ursodiol (Actigall) 300 mg PO DAILY [facility] Last Admin: 06/02/17 09:44 Dose: 300 mg - Labs Labs: 06/02/17 06:30 06/02/17 06:30 PT 19.0 SECONDS (9.4-12.5) H 05/19/17 08:20 INR 1.64 (0.93-1.08) H 05/19/17 08:20 APTT 30.4 Seconds (25.1-36.5) 05/19/17 08:20 - Constitutional Appears: No Acute Distress, Chronically Ill - Head Exam Head Exam: ATRAUMATIC, NORMOCEPHALIC - Eye Exam Eye Exam: EOMI, PERRL - ENT Exam ENT Exam: Mucous Membranes Moist - Neck Exam Neck Exam: Normal Inspection - Respiratory Exam Respiratory Exam: Clear to Ausculation Bilateral. absent: Rhonchi, Wheezes - Cardiovascular Exam Cardiovascular Exam: RRR, +S1, +S2 - GI/Abdominal Exam GI & Abdominal Exam: Distended, Soft, Tenderness (mild lower abdominal), Normal Bowel Sounds - Extremities Exam Extremities Exam: Pedal Edema (+2). 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 Plan: Stave IV colorectal CA with abdominal carcinomatosis and liver metastases Gastritis Acute cholecystitis Severe abdominal pain Ascites s/p paracentesis w/ 4.8L removal Edema HTN Hypophosphatemia Constipation On Stivarga, now day 7 Following bilirubin and AST closely, still currently less than 3x upper limit of normal, ammonia wnl Pain controlled on current regimen with fentanyl and morphine, pain medication education was provided in detail Given albumin 25g yesterday plus 25g today before lasix was given, will monitor ascites Continue neutraphos C diff negative, likely side effect of stivarga although states no repeat episodes Discussed with attending physician
--- NOTE | 2017-06-02 12:45 | CP.PCM.PN ---
<Cathi Meade - Last Filed: 06/02/17 12:34> Subjective - Date & Time of Evaluation Date of Evaluation: 06/02/17 Time of Evaluation: 10:10 - Subjective Subjective: S&E at bedside, chart reviewed. Had pain on right side of abdomen last night. No N/V. Abdomen is distended. No BM 1-2 days. Tolerated oatmeal and potato this am. No fever or chills. No acute overnight events. Objective - Vital Signs/Intake and Output Vital Signs (last 24 hours): Temp Pulse Resp BP Pulse Ox 98.3 F 109 H 20 131/82 96 06/02/17 08:47 06/02/17 08:47 06/02/17 08:47 06/02/17 09:44 06/02/17 08:47 Intake and Output: 06/02/17 06/02/17 06:59 18:59 Intake Total 540 Output Total 1100 Balance -560 - Medications Medications: Current Medications Docusate Sodium (Colace) 100 mg PO BID [facility] Last Admin: 06/02/17 09:49 Dose: Not Given Ergocalciferol (Drisdol 50,000 Intl Units Cap) 1 cap PO SUN [facility] Last Admin: 05/31/17 09:57 Dose: 1 cap Famciclovir (Famvir) 500 mg PO BID [facility] Last Admin: 06/02/17 09:44 Dose: 500 mg Fentanyl (Duragesic) 1 patch TD Q72H [facility] Last Admin: 06/01/17 21:55 Dose: 1 patch Furosemide (Lasix) 40 mg IVP DAILY [facility] Last Admin: 06/02/17 09:44 Dose: 40 mg Heparin Sodium (Porcine) (Heparin) 5,000 units SC Q12 [facility] PRN Reason: Protocol Last Admin: 06/02/17 09:44 Dose: 5,000 units Home Med (Home Med) 0 unit PO DAILY [facility] Last Admin: 06/02/17 09:45 Dose: 160 unit Lisinopril (Zestril) 2.5 mg PO DAILY [facility] Last Admin: 06/02/17 09:44 Dose: 2.5 mg Morphine Sulfate (Morphine) 2 mg IVP Q4H PRN PRN Reason: Pain, severe (8-10) Last Admin: 06/02/17 06:10 Dose: 2 mg Nystatin (Nystatin Oral Susp) 5 ml PO QID [facility] Last Admin: 06/02/17 09:44 Dose: 5 ml Ondansetron HCl (Zofran Inj) 4 mg IVP Q4H PRN PRN Reason: Nausea/Vomiting Last Admin: 06/02/17 06:15 Dose: 4 mg Pantoprazole Sodium (Protonix Ec Tab) 40 mg PO 0600 [facility] Last Admin: 06/02/17 06:11 Dose: 40 mg Polyethylene Glycol (Miralax) 17 gm PO DAILY [facility] Last Admin: 06/02/17 09:43 Dose: 17 gm Potassium Phos/Sodium Phos (Neutra-Phos) 1 pkt PO BID [facility] Last Admin: 06/02/17 09:44 Dose: 1 pkt Sucralfate (Carafate Oral Susp) 1 gm PO BID [facility] Last Admin: 06/02/17 09:43 Dose: 1 gm Ursodiol (Actigall) 300 mg PO DAILY [facility] Last Admin: 06/02/17 09:44 Dose: 300 mg - Labs Labs: 06/02/17 06:30 06/02/17 06:30 PT 19.0 SECONDS (9.4-12.5) H 05/19/17 08:20 INR 1.64 (0.93-1.08) H 05/19/17 08:20 APTT 30.4 Seconds (25.1-36.5) 05/19/17 08:20 - Constitutional Appears: No Acute Distress - Eye Exam Eye Exam: Normal appearance. absent: Scleral icterus - ENT Exam ENT Exam: Mucous Membranes Moist - Respiratory Exam Respiratory Exam: NORMAL BREATHING PATTERN. absent: Respiratory Distress - Cardiovascular Exam Cardiovascular Exam: +S1, +S2 - GI/Abdominal Exam GI & Abdominal Exam: Distended, Soft, Tenderness (minimal right side, no rebound or guarding), Normal Bowel Sounds. absent: Guarding, Rebound - Extremities Exam Extremities Exam: Pedal Edema. absent: Calf Tenderness - Neurological Exam Neurological Exam: Alert, Awake, Oriented x3 - Skin Skin Exam: Dry, Warm Assessment and Plan - Assessment and Plan (Free Text) Assessment: ASSESSMENT: RUQ Abdominal Pain,, status post HIDA scan positive for cystic duct obstruction/ acute cholecystitis Elevating LFT, differential to consider medication induced (chemo), metastatic disease,gallstones Cholelithiasis with sludge Dilated CBD Abdominal distention/ascites, s/p paracentesis Colon cancer with metastasis Anemia PLAN: continue soft low-fat low-cholesterol continue GI propyhlaxsis, on Protonix and Carafate monitor LFT DVT prophylaxsis On Actigall pain mgt. monitor electrolytes on Colace and MiraLAX monitor for diarrhea conservative mgt for acute cholecystitis as per oncology, on chemo Stivarga Seen and discussed w/ Dr. Turk. <Joi Turk V - Last Filed: 06/02/17 23:53> Objective - Vital Signs/Intake and Output Vital Signs (last 24 hours): Temp Pulse Resp BP Pulse Ox 97.9 F 99 H 18 112/70 95 06/02/17 17:18 06/02/17 17:18 06/02/17 17:18 06/02/17 17:18 06/02/17 17:18 - Medications Medications: Current Medications Docusate Sodium (Colace) 100 mg PO BID [facility] Last Admin: 06/02/17 17:46 Dose: Not Given Ergocalciferol (Drisdol 50,000 Intl Units Cap) 1 cap PO SUN [facility] Last Admin: 05/31/17 09:57 Dose: 1 cap Famciclovir (Famvir) 500 mg PO BID [facility] Last Admin: 06/02/17 17:46 Dose: 500 mg Fentanyl (Duragesic) 1 patch TD Q72H [facility] Last Admin: 06/01/17 21:55 Dose: 1 patch Furosemide (Lasix) 40 mg IVP DAILY [facility] Last Admin: 06/02/17 09:44 Dose: 40 mg Heparin Sodium (Porcine) (Heparin) 5,000 units SC Q12 [facility] PRN Reason: Protocol Last Admin: 06/02/17 22:01 Dose: 5,000 units Home Med (Home Med) 0 unit PO DAILY [facility] Last Admin: 06/02/17 09:45 Dose: 160 unit Lisinopril (Zestril) 2.5 mg PO DAILY [facility] Last Admin: 06/02/17 09:44 Dose: 2.5 mg Morphine Sulfate (Morphine) 2 mg IVP Q4H PRN PRN Reason: Pain, severe (8-10) Last Admin: 06/02/17 22:24 Dose: 2 mg Nystatin (Nystatin Oral Susp) 5 ml PO QID [facility] Last Admin: 06/02/17 22:00 Dose: 5 ml Ondansetron HCl (Zofran Inj) 4 mg IVP Q4H PRN PRN Reason: Nausea/Vomiting Last Admin: 06/02/17 22:24 Dose: 4 mg Pantoprazole Sodium (Protonix Ec Tab) 40 mg PO 0600 [facility] Last Admin: 06/02/17 06:11 Dose: 40 mg Polyethylene Glycol (Miralax) 17 gm PO DAILY [facility] Last Admin: 06/02/17 09:43 Dose: 17 gm Potassium Phos/Sodium Phos (Neutra-Phos) 1 pkt PO BID [facility] Last Admin: 06/02/17 17:46 Dose: 1 pkt Sucralfate (Carafate Oral Susp) 1 gm PO BID [facility] Last Admin: 06/02/17 17:45 Dose: 1 gm Ursodiol (Actigall) 300 mg PO DAILY [facility] Last Admin: 06/02/17 09:44 Dose: 300 mg - Labs Labs: 06/02/17 06:30 06/02/17 06:30 PT 19.0 SECONDS (9.4-12.5) H 05/19/17 08:20 INR 1.64 (0.93-1.08) H 05/19/17 08:20 APTT 30.4 Seconds (25.1-36.5) 05/19/17 08:20 Attending/Attestation - Attestation I have personally seen and examined this patient.: Yes I have fully participated in the care of the patient.: Yes I have reviewed all pertinent clinical information, including history, physical exam and plan: Yes Notes (Text): This is an addendum to GI progress report dictated by Cathi Meade APN.The patient was seen and examined earlier. Medical records, lab studies, imagings were reviewed. Last 24 hours events reviewed. Agreed with the above treatment plan as outlined in Cathi Meade APN's notes the with the addition of the following 06/02/17 23:52
--- NOTE | 2017-06-02 19:05 | PN ---
DATE: SUBJECTIVE: Patient is currently seen sitting up in bed. She is completing her course of IV antibiotic therapy for acute cholecystitis. Her renal parameters have remained normal. MEDICATIONS: List reviewed. The patient is currently on Actigall, Carafate, Colace, vitamin D, Duragesic, Famvir, heparin, Stivarga, IV Lasix, MiraLax, morphine, Neutra-Phos, nystatin, Protonix, Zestril, and Zofran p.r.n. OBJECTIVE: INTAKE AND OUTPUT: Intake 540, output 1100. Weight is 172 pounds. VITAL SIGNS: Blood pressure 131/82, temperature 98.3, pulse 109 with a respiratory rate of 20, pulse ox 96%. HEENT: Exam shows her to be normocephalic, atraumatic. Conjunctivae are pink. Sclerae are nonicteric. NECK: Supple. No neck vein distention. CHEST: Clear to auscultation and percussion. No rales, no rhonchi or wheezing. CARDIOVASCULAR: Shows a regular rate and rhythm without murmurs, rubs, or gallops. ABDOMEN: Mild distention. Positive ascites. Bowel sounds are normal. No tenderness on palpation of her right upper quadrant. No rebound, guarding, or masses. EXTREMITIES: Show trace to 1+ nonpitting edema of her lower extremity with patient sitting up in bed. No cyanosis or clubbing. LABORATORY DATA AND IMAGING: CBC: White blood cell count today 15.2, hemoglobin 11.8, platelet count is 262,000. Chemistry showed normal electrolytes. BUN 16 with a creatinine of 0.8. Calcium 8.6. Last phosphorus was 2.3 with a magnesium level of 1.8. Bilirubin mildly elevated at 3.3. Mild elevation of her liver enzymes. ASSESSMENT: 1. Normal renal parameters. BUN and creatinine remain normal. Electrolytes remain normal. 2. Status post borderline hyperkalemia. This is likely secondary to patient receiving potassium supplements along with Aldactone. These medications were placed on hold. 3. Mild hypophosphatemia. Patient continues on phosphorus supplements. 4. Acute cholecystitis. Patient deemed not to be a surgical candidate. She is being treated conservatively with IV antibiotic therapy and states that she will be completing the course of IV antibiotic therapy in the next 24 hours. 5. History of stage IV colon cancer with liver mets. This is likely the etiology of her elevated liver enzymes. Patient being followed by her oncologist, Dr. Pretty. 6. History of borderline hyponatremia. Sodium level has remained normal. 7. History of lower extremity edema and ascites. Patient will continue on IV Lasix therapy. We will try and keep the patient in negative fluid balance. We will continue to monitor her electrolytes on a regular basis. PLAN: 1. Continue off IV fluid hydration. 2. Hold Aldactone. Her potassium level today is acceptable at 4.8. 3. Continue phosphorus supplements. 4. Discharge planning perhaps in the next 24 to 48 hours. Yang Cuellar MD
[2017-06-03] MEDS: Morphine 2 mg/ml ISec IVP PRN ×2 (03:33→16:05)
--- NOTE | 2017-06-03 04:57 | PN ---
DATE: 06/02/2017 SUBJECTIVE: Patient is seen in bed, in no acute distress, nontoxic. PHYSICAL EXAMINATION VITAL SIGNS: Temperature 98, blood pressure is 112/70, respiratory rate 16. HEENT: Unremarkable. NECK: Supple. LUNGS: Decreased breath sounds. HEART: Normal S1 and S2. ABDOMEN: Soft. LABORATORY DATA: White count of 15,000, hemoglobin 11. Chemistries are noted. Urinalysis is . Microbiology reveals blood cultures are negative and C. difficile and the toxin are negative. ASSESSMENT AND PLAN: This is a 61 year old in acute cholecystitis, status post conservative therapy with antibiotics and has completed the antibiotic therapy. Patient has colonic malignancy with liver metastasis. Review of orders reveals the patient is off of antibiotics. Dorian Solis MD
[2017-06-03] MEDS: Pantoprazole 40 mg EC Tab PO SCH (06:02)
[2017-06-03 07:31] LABS: HEMOGLOBIN 11.4 g/dL (12.0-16.0); MEAN CELL VOLUME 82.1 fl (80.0-105.0); MEAN CORPUSCULAR HEMOGLOBIN 27.2 pg (25.0-35.0); MEAN CORPUSCULAR HGB CONC 33.1 g/dl (31.0-37.0); MEAN PLATELET VOLUME 8.7 fl (7.0-11.0); RBC 4.19 10^6/uL (3.5-6.1); RED CELL DISTRIBUTION WIDTH 20.5 % (11.5-14.5); WHITE BLOOD COUNT 12.2 10^3/ul (4.5-11.0)
[2017-06-03 08:06] LABS: ALB/GLOB RATIO 0.8 (1.1-1.8); ALBUMIN 2.9 g/dL (3.0-4.8); ALT/SGPT 26 U/L (7-56); AST/SGOT 148 U/L (14-36); BLOOD UREA NITROGEN 16 mg/dL (7-21); CALCIUM 8.6 mg/dL (8.4-10.5); GFR AFRICAN-AMERICAN > 60; GFR NON-AFRICAN AMERICAN > 60; MAGNESIUM 1.8 mg/dL (1.7-2.2)
--- NOTE | 2017-06-03 09:23 | CP.PCM.PN ---
Subjective - Date & Time of Evaluation Date of Evaluation: 06/03/17 Time of Evaluation: 07:10 - Subjective Subjective: Calvin Dill D.O. 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 Patient was seen and examined at bedside this morning. Patient states that she has been feeling better overall, particularly as she was able to sleep last night. Patient's abdominal pain is well controlled on her current regimen. Otherwise patient notes no complaints. No more diarrhea. Objective - Vital Signs/Intake and Output Vital Signs (last 24 hours): Temp Pulse Resp BP Pulse Ox 97.9 F 99 H 18 112/70 95 06/02/17 17:18 06/02/17 17:18 06/02/17 17:18 06/02/17 17:18 06/02/17 17:18 Intake and Output: 06/03/17 06/03/17 06:59 18:59 Intake Total 60 Output Total 200 Balance -140 - Medications Medications: Current Medications Docusate Sodium (Colace) 100 mg PO BID [facility] Last Admin: 06/02/17 17:46 Dose: Not Given Ergocalciferol (Drisdol 50,000 Intl Units Cap) 1 cap PO SUN [facility] Last Admin: 05/31/17 09:57 Dose: 1 cap Famciclovir (Famvir) 500 mg PO BID [facility] Last Admin: 06/02/17 17:46 Dose: 500 mg Fentanyl (Duragesic) 1 patch TD Q72H [facility] Last Admin: 06/01/17 21:55 Dose: 1 patch Furosemide (Lasix) 40 mg IVP DAILY [facility] Last Admin: 06/02/17 09:44 Dose: 40 mg Heparin Sodium (Porcine) (Heparin) 5,000 units SC Q12 [facility] PRN Reason: Protocol Last Admin: 06/02/17 22:01 Dose: 5,000 units Home Med (Home Med) 0 unit PO DAILY [facility] Last Admin: 06/02/17 09:45 Dose: 160 unit Lisinopril (Zestril) 2.5 mg PO DAILY [facility] Last Admin: 06/02/17 09:44 Dose: 2.5 mg Morphine Sulfate (Morphine) 2 mg IVP Q4H PRN PRN Reason: Pain, severe (8-10) Last Admin: 06/03/17 03:33 Dose: 2 mg Nystatin (Nystatin Oral Susp) 5 ml PO QID [facility] Last Admin: 06/02/17 22:00 Dose: 5 ml Ondansetron HCl (Zofran Inj) 4 mg IVP Q4H PRN PRN Reason: Nausea/Vomiting Last Admin: 06/03/17 03:34 Dose: 4 mg Pantoprazole Sodium (Protonix Ec Tab) 40 mg PO 0600 [facility] Last Admin: 06/03/17 06:02 Dose: 40 mg Polyethylene Glycol (Miralax) 17 gm PO DAILY [facility] Last Admin: 06/02/17 09:43 Dose: 17 gm Potassium Phos/Sodium Phos (Neutra-Phos) 1 pkt PO BID [facility] Last Admin: 06/02/17 17:46 Dose: 1 pkt Sucralfate (Carafate Oral Susp) 1 gm PO BID [facility] Last Admin: 06/02/17 17:45 Dose: 1 gm Ursodiol (Actigall) 300 mg PO DAILY [facility] Last Admin: 06/02/17 09:44 Dose: 300 mg - Labs Labs: 06/03/17 07:00 06/03/17 07:00 PT 19.0 SECONDS (9.4-12.5) H 05/19/17 08:20 INR 1.64 (0.93-1.08) H 05/19/17 08:20 APTT 30.4 Seconds (25.1-36.5) 05/19/17 08:20 - Constitutional Appears: relatively unchanged, No Acute Distress, Chronically Ill - Head Exam Head Exam: ATRAUMATIC, NORMOCEPHALIC - Eye Exam Eye Exam: EOMI, PERRL - ENT Exam ENT Exam: Mucous Membranes Moist - Neck Exam Neck Exam: Normal Inspection - Respiratory Exam Respiratory Exam: Clear to Ausculation Bilateral. absent: Rhonchi, Wheezes - Cardiovascular Exam Cardiovascular Exam: RRR, +S1, +S2 - GI/Abdominal Exam GI & Abdominal Exam: Distended, Soft, Tenderness (mild lower abdominal), Normal Bowel Sounds - Extremities Exam Extremities Exam: Pedal Edema (+2). 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 Plan: Stave IV colorectal CA with abdominal carcinomatosis and liver metastases Gastritis Acute cholecystitis Severe abdominal pain Ascites s/p paracentesis w/ 4.8L removal Edema HTN Hypophosphatemia Constipation On Stivarga, now day 8 Bilirubin and AST continue to stay below 3x upper limit of normal Continue pain control Nephro, GI, and cardio recs reviewed and appreciated Continue neutraphos Possible discharge later today Will discuss with attending physician
[2017-06-03] MEDS: Sucralfate 1 gm/10 ml Oral Susp UD PO SCH (10:23)
[2017-06-03] MEDS: POLYETHYLENE GLYCOL 3350 17 GM/Dose PACKET PO SCH (10:27)
[2017-06-03] MEDS: Potassium & Sodium Phosphate PO SCH (10:27)
[2017-06-03] MEDS: Nystatin 100,000 Units/ml Oral Susp 5 ml UD PO SCH ×2 (10:27→13:50)
[2017-06-03 10:37] VITALS: BP 126/83
[2017-06-03] MEDS: STIVARGA 40 MG PO SCH (10:45)
[2017-06-03 11:28] VITALS: PULSE 105; RESP 20; TEMP 98; O2SAT 97
--- NOTE | 2017-06-03 12:47 | CP.PCM.PN ---
<Cathi Meade - Last Filed: 06/03/17 12:47> Subjective - Date & Time of Evaluation Date of Evaluation: 06/03/17 Time of Evaluation: 10:20 - Subjective Subjective: Seen and examined at the bedside earlier today, chart reviewed. Patient no BM last night or this morning. Abdominal discomfort slightly better did have some nausea but no vomiting. Patient did report having a good night last night. He tolerated little bit of proctitis. Did have episode of dysuria earlier no further episodes, denies hematuria. Objective - Vital Signs/Intake and Output Vital Signs (last 24 hours): Temp Pulse Resp BP Pulse Ox 98 F 105 H 20 126/83 97 06/03/17 06:00 06/03/17 06:00 06/03/17 06:00 06/03/17 10:25 06/03/17 06:00 Intake and Output: 06/03/17 06/03/17 06:59 18:59 Intake Total 60 Output Total 200 Balance -140 - Medications Medications: Current Medications Docusate Sodium (Colace) 100 mg PO BID [facility] Last Admin: 06/03/17 10:23 Dose: Not Given Ergocalciferol (Drisdol 50,000 Intl Units Cap) 1 cap PO SUN [facility] Last Admin: 05/31/17 09:57 Dose: 1 cap Famciclovir (Famvir) 500 mg PO BID [facility] Last Admin: 06/03/17 10:23 Dose: 500 mg Fentanyl (Duragesic) 1 patch TD Q72H [facility] Last Admin: 06/01/17 21:55 Dose: 1 patch Furosemide (Lasix) 40 mg IVP DAILY [facility] Last Admin: 06/03/17 10:25 Dose: 40 mg Heparin Sodium (Porcine) (Heparin) 5,000 units SC Q12 [facility] PRN Reason: Protocol Last Admin: 06/03/17 10:24 Dose: 5,000 units Home Med (Home Med) 0 unit PO DAILY [facility] Last Admin: 06/03/17 10:45 Dose: 1 unit Lisinopril (Zestril) 2.5 mg PO DAILY [facility] Last Admin: 06/03/17 10:27 Dose: 2.5 mg Morphine Sulfate (Morphine) 2 mg IVP Q4H PRN PRN Reason: Pain, severe (8-10) Last Admin: 06/03/17 03:33 Dose: 2 mg Nystatin (Nystatin Oral Susp) 5 ml PO QID [facility] Last Admin: 06/03/17 10:27 Dose: 5 ml Ondansetron HCl (Zofran Inj) 4 mg IVP Q4H PRN PRN Reason: Nausea/Vomiting Last Admin: 06/03/17 03:34 Dose: 4 mg Pantoprazole Sodium (Protonix Ec Tab) 40 mg PO 0600 [facility] Last Admin: 06/03/17 06:02 Dose: 40 mg Polyethylene Glycol (Miralax) 17 gm PO DAILY [facility] Last Admin: 06/03/17 10:27 Dose: 17 gm Potassium Phos/Sodium Phos (Neutra-Phos) 1 pkt PO BID [facility] Last Admin: 06/03/17 10:27 Dose: 1 pkt Sucralfate (Carafate Oral Susp) 1 gm PO BID [facility] Last Admin: 06/03/17 10:23 Dose: 1 gm Ursodiol (Actigall) 300 mg PO DAILY [facility] Last Admin: 06/03/17 10:23 Dose: 300 mg - Labs Labs: 06/03/17 07:00 06/03/17 07:00 PT 19.0 SECONDS (9.4-12.5) H 05/19/17 08:20 INR 1.64 (0.93-1.08) H 05/19/17 08:20 APTT 30.4 Seconds (25.1-36.5) 05/19/17 08:20 - Constitutional Appears: No Acute Distress - Head Exam Head Exam: NORMOCEPHALIC - Eye Exam Eye Exam: Scleral icterus - ENT Exam ENT Exam: Mucous Membranes Moist - Respiratory Exam Respiratory Exam: NORMAL BREATHING PATTERN. absent: Respiratory Distress - Cardiovascular Exam Cardiovascular Exam: +S1, +S2 - GI/Abdominal Exam GI & Abdominal Exam: Distended, Soft, Normal Bowel Sounds. absent: Guarding, Tenderness, Rebound - Extremities Exam Extremities Exam: Pedal Edema. absent: Calf Tenderness - Neurological Exam Neurological Exam: Alert, Awake, Oriented x3 Assessment and Plan - Assessment and Plan (Free Text) Assessment: ASSESSMENT: RUQ Abdominal Pain,, status post HIDA scan positive for cystic duct obstruction/ acute cholecystitis Elevating LFT, differential to consider medication induced (chemo), metastatic disease,gallstones Cholelithiasis with sludge Dilated CBD Abdominal distention/ascites, s/p paracentesis Colon cancer with metastasis Anemia PLAN: continue soft low-fat low-cholesterol continue GI propyhlaxsis, on Protonix and Carafate monitor LFT DVT prophylaxsis On Actigall monitor electrolytes on Colace and MiraLAX monitor for diarrhea ? eval for paracentesis,discuss w/ oncology may consider eval for catheter conservative mgt for acute cholecystitis as per oncology, on chemo Stivarga Seen and discussed w/ Dr. Turk. <Joi Turk V - Last Filed: 06/03/17 23:12> Objective - Vital Signs/Intake and Output Vital Signs (last 24 hours): Temp Pulse Resp BP Pulse Ox 98 F 105 H 20 126/83 97 06/03/17 06:00 06/03/17 06:00 06/03/17 06:00 06/03/17 10:25 06/03/17 06:00 - Labs Labs: 06/03/17 07:00 06/03/17 07:00 PT 19.0 SECONDS (9.4-12.5) H 05/19/17 08:20 INR 1.64 (0.93-1.08) H 05/19/17 08:20 APTT 30.4 Seconds (25.1-36.5) 05/19/17 08:20 Attending/Attestation - Attestation I have personally seen and examined this patient.: Yes I have fully participated in the care of the patient.: Yes I have reviewed all pertinent clinical information, including history, physical exam and plan: Yes Notes (Text): This is an addendum to GI progress report dictated by Cathi Meade APN.The patient was seen and examined earlier. Medical records, lab studies, imagings were reviewed. Last 24 hours events reviewed. Agreed with the above treatment plan as outlined in Cathi Meade APN's notes the with the addition of the following 06/03/17 23:11
--- NOTE | 2017-06-04 07:33 | CP.PCM.DIS ---
Provider - Provider Date of Admission: 05/19/17 09:47 Attending physician: Mark Dennis MD Primary care physician: Thalia Pretty MD Consults: GI Dr. Turk Surgery Dr. Stokes Nephro Dr. Dominguez ID Dr. Halley Hicks Time Spent in preparation of Discharge (in minutes): 60 Diagnosis - Discharge Diagnosis (1) Abdominal pain Status: Acute (2) Biliary colic Status: Acute (3) Intractable abdominal pain Status: Acute (4) Leukocytosis Status: Acute (5) Transaminitis Status: Acute (6) Elevated liver enzymes Status: Chronic (7) Metastatic colorectal cancer Status: Chronic Hospital Course - Lab Results Lab Results: Micro Results 05/31/17 15:10 Stool C. difficile Antigen & Toxin A,B (M - Final 05/26/17 10:20 Blood-Venous Blood Culture - Final NO GROWTH AFTER 5 DAYS 05/26/17 10:20 Blood-Venous Gram Stain - Final TEST NOT PERFORMED 05/26/17 10:00 Blood-Venous Blood Culture - Final NO GROWTH AFTER 5 DAYS 05/26/17 10:00 Blood-Venous Gram Stain - Final TEST NOT PERFORMED Most Recent Lab Values WBC 12.2 10^3/ul (4.5-11.0) H 06/03/17 07:00 RBC 4.19 10^6/uL (3.5-6.1) 06/03/17 07:00 Hgb 11.4 g/dL (12.0-16.0) L 06/03/17 07:00 Hct 34.4 % (36.0-48.0) L 06/03/17 07:00 MCV 82.1 fl (80.0-105.0) 06/03/17 07:00 MCH 27.2 pg (25.0-35.0) 06/03/17 07:00 MCHC 33.1 g/dl (31.0-37.0) 06/03/17 07:00 RDW 20.5 % (11.5-14.5) H 06/03/17 07:00 Plt Count 249 10^3/uL (120.0-450.0) 06/03/17 07:00 MPV 8.7 fl (7.0-11.0) 06/03/17 07:00 Gran % 80.8 % (50.0-68.0) H 05/30/17 08:30 Lymph % (Auto) 4.2 % (22.0-35.0) L 05/30/17 08:30 Motley % (Auto) 14.7 % (1.0-6.0) H 05/30/17 08:30 Eos % (Auto) 0.1 % (1.5-5.0) L 05/30/17 08:30 Baso % (Auto) 0.2 % (0.0-3.0) 05/30/17 08:30 Gran # 15.06 (1.4-6.5) H 05/30/17 08:30 Lymph # (Auto) 0.8 (1.2-3.4) L 05/30/17 08:30 Motley # (Auto) 2.8 (0.1-0.6) H 05/30/17 08:30 Eos # (Auto) 0.0 (0.0-0.7) 05/30/17 08:30 Baso # (Auto) 0.04 K/mm3 (0.0-2.0) 05/30/17 08:30 Neutrophils % (Manual) 82 % (50.0-70.0) H 05/30/17 08:30 Lymphocytes % (Manual) 9 % (22.0-35.0) L 05/30/17 08:30 Atypical Lymphs % 3 % (0.0-0.0) H 05/30/17 08:30 Monocytes % (Manual) 6 % (1.0-6.0) 05/30/17 08:30 Platelet Evaluation Normal (NORMAL) 05/30/17 08:30 Hypochromasia Slight 05/30/17 08:30 Anisocytosis (manual) 1+ 05/30/17 08:30 Microcytosis (manual) 1+ 05/30/17 08:30 PT 19.0 SECONDS (9.4-12.5) H 05/19/17 08:20 INR 1.64 (0.93-1.08) H 05/19/17 08:20 APTT 30.4 Seconds (25.1-36.5) 05/19/17 08:20 Sodium 134 mmol/L (132-148) 06/03/17 07:00 Potassium 4.5 mmol/L (3.6-5.0) 06/03/17 07:00 Chloride 98 mmol/L (98-107) 06/03/17 07:00 Carbon Dioxide 26 mmol/L (21-33) 06/03/17 07:00 Anion Gap 15 (10-20) 06/03/17 07:00 BUN 16 mg/dL (7-21) 06/03/17 07:00 Creatinine 0.8 mg/dl (0.7-1.2) 06/03/17 07:00 Est GFR ( Amer) > 60 06/03/17 07:00 Est GFR (Non-Af Amer) > 60 06/03/17 07:00 Random Glucose 94 mg/dL (70-110) 06/03/17 07:00 Uric Acid 2.6 mg/dL (2.5-6.2) 05/22/17 07:50 Calcium 8.6 mg/dL (8.4-10.5) 06/03/17 07:00 Phosphorus 1.8 mg/dL (2.5-4.5) L 06/03/17 07:00 Magnesium 1.8 mg/dL (1.7-2.2) 06/03/17 07:00 Total Bilirubin 3.6 mg/dL (0.2-1.3) H 06/03/17 07:00 Direct Bilirubin 2.5 mg/dL (0.0-0.4) H 06/02/17 06:00 AST 148 U/L (14-36) H 06/03/17 07:00 ALT 26 U/L (7-56) 06/03/17 07:00 Alkaline Phosphatase 310 U/L (38-126) H 06/03/17 07:00 Ammonia 32 umol/L (9-33) 06/02/17 06:30 Total Protein 6.6 g/dL (5.8-8.3) 06/03/17 07:00 Albumin 2.9 g/dL (3.0-4.8) L 06/03/17 07:00 Globulin 3.7 gm/dL 06/03/17 07:00 Albumin/Globulin Ratio 0.8 (1.1-1.8) L 06/03/17 07:00 Amylase 49 U/L (35-125) 01/30/18 08:20 Lipase 37 U/L (23-300) 05/19/17 08:20 Urine Osmolality 553 mosm/kg (300-1000) 05/22/17 22:40 Ur Random Sodium 111 meq/L 05/22/17 22:40 Blood Type O POSITIVE 05/19/17 08:04 Antibody Screen Negative 05/19/17 08:04 BBK History Checked Patient has bt 05/19/17 08:04 - Hospital Course Hospital Course: 61 year old female with a PMH of Stage IV metastatic colon cancer with intraabdominal carcinomatosis and liver metastases who presents for RUQ pain associated with nausea, vomiting. Patient was evaluated by GI and had an EGD with EUS and was found to have cholelithiasis, multiple liver mets, and gastritis. Patient clinically had signs of acute cholecystitis. Patient given her medical comorbidities was started on medical management with rocephin and flagyl. Patient slowly had her diet advanced and her pain was controlled with IV morphine. Patient was started on stivarga, a dual kinase inhibitor, for chemotherapy and was monitored inpatient once her condition improved. Patient also had some ascites which did not improve with diuretics and so she had a paracentesis performed with over 4L of fluid removed. Patient did have some elevation of her AST and bilirubin which is expected with stivarga but it remained under 3x the upper limit of normal. Patient tolerated the medication well for a total of 7 days and was discharged in stable condition with instructions to continue her stivarga as described and follow up in the Hem/Onc clinic Thursday06/08/17. All questions welcomed and answered. Education provided. Scripts called in. - Date & Time of H&P Date of H&P: 06/03/17 Time of H&P: 19:00 Discharge Exam - Head Exam Head Exam: ATRAUMATIC, NORMOCEPHALIC - Eye Exam Eye Exam: EOMI, PERRL - ENT Exam ENT Exam: Mucous Membranes Moist - Neck Exam Neck exam: Normal Inspection - Respiratory Exam Respiratory Exam: Clear to PA & Lateral. absent: Rhonchi, Wheezes - Cardiovascular Exam Cardiovascular Exam: RRR, +S1, +S2. absent: Gallop, Rubs - GI/Abdominal Exam GI & Abdominal Exam: Normal Bowel Sounds, Soft. absent: Diminished Bowel Sounds , Tenderness - Neurological Exam Neurological exam: Alert, CN II-XII Intact, Oriented x3 - Psychiatric Exam Psychiatric exam: Normal Affect, Normal Mood - Skin Skin Exam: Dry, Warm Discharge Plan - Discharge Medications Prescriptions: metOLazone [Zaroxolyn] 2.5 mg PO DAILY #30 tab - Follow Up Plan Condition: FAIR Disposition: HOME/ ROUTINE Instructions: Biliary Colic (GEN), Oral Chemotherapy (DC), Abdominal Pain (ED) , Acute Abdominal Pain (DC), Acute Abdominal Pain (GEN), Leukocytosis (DC), Leukocytosis (GEN) Additional Instructions: 1. Follow up with Dr. Pretty thursday06/08/17. Please call office to make appointment. 2. Take diuretic as discussed. 3. Continue all other home medications. Referrals: Thalia Pretty MD [Primary Care Provider] -
--- NOTE | 2017-06-04 08:45 | PN ---
DATE: 06/03/2017 SUBJECTIVE: The patient is seen in bed, in no acute distress. PHYSICAL EXAMINATION VITAL SIGNS: Temperature is 98, blood pressure is 126/80, respiratory rate of 20, heart rate of 105. HEENT: Unremarkable. NECK: Supple. LUNGS: Decreased breath sounds. HEART: Normal S1 and S2. ABDOMEN: Soft. LABORATORY DATA: Reveals a white count of 12,200, hemoglobin of 11. Chemistries are noted. BUN of 16, creatinine of 0.8. Blood cultures are no growth. Stool for C. diff antigen and toxin are negative. Review of orders reveals the patient to be on famciclovir, and off of antibiotics. ASSESSMENT AND PLAN: This is a 61-year-old female with acute cholecystitis, status post conservative therapy with antibiotics and has completed the antibiotic therapy, colonic malignancy with liver metastasis. Currently, off of antibiotics and Dr. Calvin Dill's progress note from today is reviewed. Overall prognosis is quite poor. Dorian Solis MD
== END 2017-06-03 18:15 | disposition home or self-care (01) | DRG 207 ==
LOC: ED 07:25 → ERH 09:47 → 3RNO 11:42
PROVIDERS: ADMIT Family Medicine; ATTEND Family Medicine
PROC: 0DJ08ZZ Inspection of Upper Intestinal Tract, Via Natural or Artificial Opening Endoscopic (ICD-10-PCS; principal; 2017-05-19 13:30)
PROC: 0W9G3ZZ Drainage of Peritoneal Cavity, Percutaneous Approach (ICD-10-PCS; 2017-05-28)
DX: K80.00 Calculus of gallbladder with acute cholecystitis without obstruction (principal); C78.7 Secondary malignant neoplasm of liver and intrahepatic bile duct; R18.8 Other ascites; C19 Malignant neoplasm of rectosigmoid junction; E83.39 Other disorders of phosphorus metabolism; E87.1 Hypo-osmolality and hyponatremia; E87.5 Hyperkalemia; E86.0 Dehydration; E87.6 Hypokalemia; E87.70 Fluid overload, unspecified; N18.9 Chronic kidney disease, unspecified; D63.8 Anemia in other chronic diseases classified elsewhere; D25.9 Leiomyoma of uterus, unspecified; E78.5 Hyperlipidemia, unspecified; K29.70 Gastritis, unspecified, without bleeding; F41.9 Anxiety disorder, unspecified; I12.9 Hypertensive chronic kidney disease with stage 1 through stage 4 chronic kidney disease, or unspecified chronic kidney disease; K44.9 Diaphragmatic hernia without obstruction or gangrene; K59.03 Drug induced constipation; N80.9 Endometriosis, unspecified; T40.605A Adverse effect of unspecified narcotics, initial encounter; Z85.048 Personal history of other malignant neoplasm of rectum, rectosigmoid junction, and anus; Z87.442 Personal history of urinary calculi; Z90.710 Acquired absence of both cervix and uterus; Z91.018 Allergy to other foods; K83.8 Other specified diseases of biliary tract

== ENCOUNTER 2017-06-11 11:36 | Day surgery (SDC) | payer MEDICAID ==
[2017-06-10 14:08] VITALS: BMI 25.8
[2017-06-11 12:11] VITALS: RESP 18
[2017-06-11 12:25] LABS: BASO # 0.03 K/mm3 (0.0-2.0); BASO % 0.2 % (0.0-3.0); EOS % 0.1 % (1.5-5.0); GRAN # 11.94 (1.4-6.5); GRAN % 77.5 % (50.0-68.0); HEMOGLOBIN 11.8 g/dL (12.0-16.0); LYMPH # 0.9 (1.2-3.4); LYMPH % 6.1 % (22.0-35.0); MEAN CELL VOLUME 82.2 fl (80.0-105.0); MONO # 2.5 (0.1-0.6); MONO % 16.1 % (1.0-6.0); RBC 4.22 10^6/uL (3.5-6.1); WHITE BLOOD COUNT 15.4 10^3/ul (4.5-11.0)
[2017-06-11 12:34] LABS: CALCIUM 7.9 mg/dL (8.4-10.5)
[2017-06-11 12:41] LABS: INR 2.04 (0.93-1.08); PARTIAL THROMBOPLASTIN TIME 38.7 Seconds (25.1-36.5); PROTHROMBIN TIME 23.8 SECONDS (9.4-12.5)
[2017-06-11] MEDS ORDERED: Lidocaine 2% Inj (20ml) ONE (13:38)
[2017-06-11] MEDS ORDERED: Midazolam 2 MG/2 ML VIAL ONE ×3 (13:38→16:03)
[2017-06-11] MEDS ORDERED: HEPARIN SODIUM/NS 2,000 ML IV ONE (13:39)
[2017-06-11] MEDS ORDERED: Oxycodone/Acetaminophen 5/325 mg Tab PO PRN (16:33)
[2017-06-11] MEDS ORDERED: Sodium Chloride 0.45% 1,000 ML IV SCH (16:45)
[2017-06-11 17:28] VITALS: BP 104/74; PULSE 92; TEMP 97.8; O2SAT 96
[2017-06-11] MEDS ORDERED: Oxycodone/Acetaminophen 5/325 mg Tab ONE (17:52)
[2017-06-11] MEDS ORDERED: Oxycodone/Acetaminophen 5/325 mg Tab PO ONE (17:54)
--- NOTE | 2017-06-11 20:34 | VASCULAR ---
PROCEDURE: 1. Ultrasound fluoroscopically placed tunneled peritoneal catheter HISTORY: Metastatic colorectal CA with recurrent ascites. Abdominal pain and distension. Needs tunneled catheter. PHYSICIAN(S): Christiano Hicks MD. TECHNIQUE: The relative risks and indications of the procedure were explained the patient and consent obtained. The patient is placed supine on the arteriogram table preliminary sonography of the abdomen performed. This revealed a moderate to large amount of non loculated ascites, greatest in the right mid abdomen. A tube placement site was selected in the right mid abdomen the area prepped and draped usual sterile fashion. Conscious sedation monitoring were provided throughout the procedure by a nurse. Peritoneal cavity was punctured with an 18 gauge needle. Tony ascites was obtained. 0.035 glidewire was advanced posteriorly and superiorly. Next [place] peel-away sheath was placed. Finally the 15.5 [place] Aspira catheter was advanced over the guidewire through the sheath. The catheter was tunneled along the abdominal wall. The catheter was flushed and secured. Paracentesis was performed. 4750 cc of tony fluid was aspirated. No labs were sent. FINDINGS: IMPRESSION: 1 ultrasound and fluoroscopically placed tunneled peritoneal catheter. 2. 4750 cc of tony ascites were drained.
== END 2017-06-11 16:23 | disposition home or self-care (01) ==
LOC: SDSVAS 11:36
PROVIDERS: ATTEND Radiology Vascular & Interventional Radiology
DX: C19 Malignant neoplasm of rectosigmoid junction (principal); R18.8 Other ascites
CPT/HCPCS: 36415; 49418; 80048; 85025; 85610; 85730; 99152; C1760; C1769; J1644; J2250; J2405; J3010; J7030

== ENCOUNTER 2017-06-11 18:45 | Inpatient (IN) | payer MEDICAID ==
[2017-06-11] MEDS ORDERED: Oxycodone/Acetaminophen 5/325 mg Tab PO STA (19:30)
--- NOTE | 2017-06-11 19:30 | ED PDOC ---
Arrival/HPI - General Chief Complaint: Abdominal Pain Time Seen by Provider: 06/11/17 18:52 Historian: Patient, Other ([facility] nurse report) - History of Present Illness Narrative History of Present Illness (Text): 06/11/17 19:30 A 61 year old female, whose past medical history includes colon cancer with metastasis to the liver, sent into the emergency department from [facility] for post- procedure abdominal pain. Patient had an aspiracath placed today and 4750 ml of fluid was drained. Patient was given 5 mg of percocet with no relief of pain and sent to the emergency room for further evaluation. Patient denies any fever , chills, nausea, vomiting, chest pain, shortness of breath or any other complaints. Time/Duration: Other (today) Symptom Course: Unchanged Context: Other (Same Day Surgery) Past Medical History - Provider Review Nursing Documentation Reviewed: Yes - Infectious Disease Hx of Infectious Diseases: None - Tetanus Immunization Tetanus Immunization: Unknown - Cardiac Hx Pacemaker: No - Pulmonary Hx Respiratory Disorders: No - Neurological Hx Neurological Disorder: No - HEENT Hx HEENT Disorder: No - Renal Hx Renal Disorder: Yes Hx Kidney Stones: Yes - Endocrine/Metabolic Hx Endocrine Disorders: No - Hematological/Oncological Hx Blood Transfusions: Yes Hx Blood Transfusion Reaction: No - Integumentary Hx Dermatological Disorder: No - Musculoskeletal/Rheumatological Hx Musculoskeletal Disorders: No - Gastrointestinal Hx Gastrointestinal Disorders: Yes (colon ca) Other/Comment: liver/colon ca on chemo. HX BLOOD TRANSFUSION - Genitourinary/Gynecological Hx Genitourinary Disorders: Yes Other/Comment: fibroids, endometriosis - Psychiatric Hx Emotional Abuse: No Hx Physical Abuse: No Hx Substance Use: No - Surgical History Other/Comment: laparotomy for uterine fibroid resectionR chest port placedR chest port placed - Anesthesia Hx Anesthesia Reactions: No Hx Malignant Hyperthermia: No - Suicidal Assessment Feels Threatened In Home Enviroment: No Family/Social History - Physician Review Nursing Documentation Reviewed: Yes Family/Social History: No Known Family HX Smoking Status: Never Smoked Hx Alcohol Use: Yes (WINE ON OCCASION) Hx Substance Use: No Hx Substance Use Treatment: No Allergies/Home Meds Allergies/Adverse Reactions: Allergies montano Allergy (Intermediate, Uncoded 06/11/17 19:18) URTICARIA Home Medications: Home Meds Medication Instructions Recorded Confirmed Ergocalciferol (Vitamin D2) 50,000 unit PO SUN 03/17/16 06/11/17 [Vitamin D2] Omeprazole 40 mg PO DAILY 08/06/16 06/11/17 Pyridoxine [Vitamin B6] 3 tab PO BID 03/27/17 06/11/17 oxyCODONE [oxyCODONE Immediate 5 mg PO Q6 PRN 06/11/17 06/11/17 Release Tab] Review of Systems - Physician Review All systems were reviewed & negative as marked: Yes - Review of Systems Constitutional: absent: Fevers, Night Sweats Respiratory: absent: SOB Cardiovascular: absent: Chest Pain Gastrointestinal: Abdominal Pain. absent: Nausea, Vomiting Physical Exam Vital Signs Reviewed: Yes Vital Signs Temp Pulse Resp BP Pulse Ox 06/11/17 18:47 97.4 F L 96 H 15 115/75 99 Temperature: Afebrile Blood Pressure: Normal Pulse: Tachycardic Respiratory Rate: Normal Appearance: Positive for: Non-Toxic, Comfortable, Other (Appears frail but well hydrated) Pain Distress: None Mental Status: Positive for: Alert and Oriented X 3 - Systems Exam Head: Present: Atraumatic, Normocephalic Pupils: Present: PERRL Extroacular Muscles: Present: EOMI Conjunctiva: Present: Normal Mouth: Present: Moist Mucous Membranes Neck: Present: Normal Range of Motion Respiratory/Chest: Present: Clear to Auscultation (in all lung swain), Good Air Exchange, Other (portacath to tight upper chest). No: Respiratory Distress , Accessory Muscle Use, Tender to Palpation Cardiovascular: Present: Regular Rate and Rhythm, Murmurs (Systolic murmur), Normal S1, S2 Abdomen: Present: Tenderness (Mild tenderness to upper abdomen), Normal Bowel Sounds, Other (abdomen soft and decompressed, fresh catheter placed to right side of abdomen which is dressed). No: Distention, Peritoneal Signs, Mass/ Organomegaly (No palpable mass or bruising) Upper Extremity: Present: Normal Inspection. No: Cyanosis, Edema Lower Extremity: Present: Other (decrease muscle mass). No: Edema Neurological: Present: GCS=15, CN II-XII Intact, Speech Normal, Other (No acute neurological deficits) Skin: Present: Warm, Dry, Normal Color. No: Rashes Psychiatric: Present: Alert, Oriented x 3, Normal Insight, Normal Concentration Medical Decision Making ED Course and Treatment: 06/11/17 19:30 Impression: A 61 year old male sent from [facility] for post-procedural abdominal pain. Most likely due to removal of large amount of intra-abdominal fluids. No reason to suspect acute pathology. Plan: -- Percocet -- Reassess and disposition Progress Notes: 06/11/17 20:56 pain persists; patient is non-ambulatory. Admit; IV fluids; pain meds; consider cable tester care. - Medication Orders Current Medication Orders: Discontinued Medications Oxycodone/Acetaminophen (Percocet 5/325 Mg Tab) 1 tab PO STAT STA Stop: 06/11/17 19:31 Last Admin: 06/11/17 19:45 Dose: 1 tab MAR Pain Assessment Document 06/11/17 19:45 HI (Rec: 06/11/17 19:45 HI [id number]) Pain Reassessment Is this a pain reassessment? No Disposition/Present on Arrival - Present on Arrival Any Indicators Present on Arrival: No History of DVT/PE: No History of Uncontrolled Diabetes: No Urinary Catheter: No History of Decub. Ulcer: No History Surgical Site Infection Following: None - Disposition Have Diagnosis and Disposition been Completed?: Yes Diagnosis: Metastatic colorectal cancer Disposition: HOSPITALIZED Disposition Time: 21:00 Patient Plan: Admission Condition: FAIR Forms: [employer] ([employer])
[2017-06-11] MEDS ORDERED: Sodium Chloride 0.9% 1,000 ML IV SCH ×2 (21:00→21:46)
[2017-06-11] MEDS ORDERED: oxyCODONE 5 mg Immediate Release Tab PO PRN (21:43)
[2017-06-12 06:25] VITALS: BMI 25.8
--- NOTE | 2017-06-12 06:36 | CP.PCM.PN ---
Subjective - Date & Time of Evaluation Date of Evaluation: 06/12/17 Time of Evaluation: 06:36 - Subjective Subjective: Seen at bedside. She complained of nausea. Has received percocet earlier in ER. States that she does not like percoet. No other complaints. Denies chest pain, sweating , palpitation, sob, head ache, dizziness. BP 115/71 . This 61 year old woman was admitted with abdominal pain from [facility] after a procedure. PMH:Endometriosis, Stage IV colorectal cancer, anemia, blood transfusion, S/P port-a-cath placement. Objective - Vital Signs/Intake and Output Vital Signs (last 24 hours): Temp Pulse Resp BP Pulse Ox 97.4 F L 97 H 16 115/71 98 06/11/17 18:47 06/11/17 23:30 06/11/17 23:30 06/11/17 23:30 06/11/17 23:30 - Medications Medications: Current Medications Sodium Chloride (Sodium Chloride 0.9%) 1,000 mls @ 40 mls/hr IV .Q24H [facility] Last Admin: 06/11/17 23:27 Dose: 40 mls/hr Lisinopril (Zestril) 2.5 mg PO DAILY [facility] Metolazone (Zaroxolyn) 2.5 mg PO MWF [facility] Morphine Sulfate (Morphine) 2 mg IVP Q4H PRN PRN Reason: Pain, severe (8-10) Oxycodone HCl (Oxycodone Immediate Release Tab) 5 mg PO Q4H PRN PRN Reason: Pain, moderate (4-7) Pantoprazole Sodium (Protonix Ec Tab) 40 mg PO DAILY [facility] Sucralfate (Carafate Oral Susp) 1 gm PO BID [facility] Ursodiol (Actigall) 300 mg PO DAILY [facility] - Constitutional Appears: Well, No Acute Distress - Head Exam Head Exam: ATRAUMATIC, NORMAL INSPECTION, NORMOCEPHALIC - Eye Exam Eye Exam: Normal appearance - ENT Exam ENT Exam: Normal External Ear Exam - Neck Exam Neck Exam: Normal Inspection - Respiratory Exam Respiratory Exam: NORMAL BREATHING PATTERN - Cardiovascular Exam Cardiovascular Exam: absent: JVD - GI/Abdominal Exam GI & Abdominal Exam: absent: Distended - Rectal Exam Rectal Exam: Deferred - Exam Additional comments: Deferred. - Extremities Exam Extremities Exam: Normal Inspection - Back Exam Back Exam: NORMAL INSPECTION - Neurological Exam Neurological Exam: Alert, Oriented x3 - Psychiatric Exam Psychiatric exam: Normal Affect, Normal Mood - Skin Skin Exam: Normal Color Assessment and Plan - Assessment and Plan (Free Text) Assessment: Nausea-2* to pain med? Endometriosis. Stage IV colorectal cancer. S/P chemotherapy. Anemia. Plan: Zofran 4 mg IV stat. Protonix this AM. Continue present management.
[2017-06-12 06:37] LABS: BASO # 0.02 K/mm3 (0.0-2.0); BASO % 0.1 % (0.0-3.0); EOS # 0.1 (0.0-0.7); EOS % 0.7 % (1.5-5.0); GRAN # 11.08 (1.4-6.5); GRAN % 75.6 % (50.0-68.0); HEMOGLOBIN 11.9 g/dL (12.0-16.0); LYMPH # 1.2 (1.2-3.4); LYMPH % 7.8 % (22.0-35.0); MEAN CELL VOLUME 82.8 fl (80.0-105.0); MEAN CORPUSCULAR HEMOGLOBIN 27.6 pg (25.0-35.0); MEAN CORPUSCULAR HGB CONC 33.3 g/dl (31.0-37.0); MEAN PLATELET VOLUME 8.6 fl (7.0-11.0); MONO # 2.3 (0.1-0.6); MONO % 15.8 % (1.0-6.0); RBC 4.31 10^6/uL (3.5-6.1); WHITE BLOOD COUNT 14.7 10^3/ul (4.5-11.0)
[2017-06-12] MEDS: Morphine 2 mg/ml ISec IVP PRN ×2 (06:48→15:11)
[2017-06-12 07:00] LABS: INR 2.02 (0.93-1.08); PROTHROMBIN TIME 23.6 SECONDS (9.4-12.5)
[2017-06-12 07:04] LABS: ALB/GLOB RATIO 0.7 (1.1-1.8); ALBUMIN 2.7 g/dL (3.0-4.8); CALCIUM 7.5 mg/dL (8.4-10.5)
--- NOTE | 2017-06-12 08:19 | HP ---
DATE OF EXAM: 06/11/[address] Pretty. CHIEF COMPLAINT: Intractable pain, gait disturbance. HISTORY OF PRESENT ILLNESS: The patient is a 61-year-old female with known progressive metastatic stage IV cancer of the colon, liver metastasis, cholelithiasis with severe ascites, now status post Aspira catheter placement by Dr. Christiano Hicks earlier today with the patient developing severe abdominal pain and severe gait disturbance that she cannot stand or walk. The patient had 4750 mL of tony ascites fluid drained with the Aspira catheter placed late this afternoon with the patient now reporting that her pain medicines are not helping with oral oxycodone ineffective. The patient has no appetite with the patient appearing in moderate distress due to her severe pain. She is now admitted for evaluation and treatment as indicated and really for her intractable pain of cancer. This is a complex patient with a comprehensive medically necessary and appropriate visit carried out in excess of one hour of [id number] time with the patient with her hospital records and office records reviewed and conversation held with Dr. Christiano Hicks and Dr. Turk along with the emergency room physician. ALLERGIES: REPORTEDLY TO SLATER BEVERAGE DRINK, OTHERWISE NO ALLERGIES. MEDICATIONS: The patient's medicines include tramadol, omeprazole, ursodiol, Carafate, vitamin D, vitamin B6, magnesium, Zaroxolyn recently started, lisinopril, Xgeva on a monthly basis, Stivarga 40 mg 4 tablets daily which is on hold, water pills, oxycodone, and recently started fentanyl patch which has been taken off. 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 The patient also has acute renal failure, abnormal LFTs, history of gallstones, recently hospitalized for SIRS, history of endometriosis, anemia of chronic disease. FAMILY HISTORY AND SOCIAL HISTORY: Noncontributory. Nonsmoker, rare alcohol use in the past. Brother alive and well. REVIEW OF SYSTEMS: A 12-point review of systems was negative to questioning except for items mentioned in the history of present illness as above. OBJECTIVE/PHYSICAL EXAMINATION: VITAL SIGNS: Temperature 97.4, pulse 97, respirations 16, blood pressure 112/72, pulse ox 97%. GENERAL: She appears cachectic. HEENT: The sclerae are icteric. Tongue is dry. NECK: Supple. HEART: Tachy rate, regular rhythm. LUNGS: Clear. ABDOMEN: Markedly distended with Aspira catheter dressing noted with minimal generalized tenderness. EXTREMITIES: +1 edema of the feet bilaterally. NEUROLOGIC: She is awake, alert but somnolent. SKIN: Warm DICTATION ENDS HERE. Mark Dennis MD
[2017-06-12] MEDS ORDERED: metOLazone 2.5 MG TAB PO SCH (10:00)
[2017-06-12] MEDS: Pantoprazole 40 mg EC Tab PO SCH (10:56)
[2017-06-12] MEDS: Sucralfate 1 gm/10 ml Oral Susp UD PO SCH ×2 (10:56→18:20)
--- NOTE | 2017-06-12 16:11 | CP.PCM.PN ---
Subjective - Date & Time of Evaluation Date of Evaluation: 06/12/17 Time of Evaluation: 07:45 - Subjective Subjective: Calvin Dill D.O. PGY-2, Internal Medicine Resident, Hem/Onc Progress Note 61 year old female with a PMH of Stage IV metastatic colon cancer with intraabdominal carcinomatosis and liver metastases who presents for pain, nausea after aspira cathter insertion. Patient was seen and evaluated. Patient very weak, states also unable to tolerate food without pain. Only able to have liquids, in fact thirsty. Objective - Vital Signs/Intake and Output Vital Signs (last 24 hours): Temp Pulse Resp BP Pulse Ox 97.4 F L 93 H 18 103/65 99 06/12/17 06:00 06/12/17 10:56 06/12/17 06:00 06/12/17 10:56 06/12/17 06:00 Intake and Output: 06/12/17 06/12/17 06:59 18:59 Intake Total 120 Output Total 0 Balance 120 - Medications Medications: Current Medications Sodium Chloride (Sodium Chloride 0.9%) 1,000 mls @ 40 mls/hr IV .Q24H [facility] Stop: 06/12/17 21:45 Last Admin: 06/11/17 23:27 Dose: 40 mls/hr Lisinopril (Zestril) 2.5 mg PO DAILY [facility] Last Admin: 06/12/17 10:56 Dose: 2.5 mg Metolazone (Zaroxolyn) 2.5 mg PO MWF [facility] Last Admin: 06/12/17 10:56 Dose: 2.5 mg Morphine Sulfate (Morphine) 2 mg IVP Q4H PRN PRN Reason: Pain, severe (8-10) Last Admin: 06/12/17 15:11 Dose: 2 mg Oxycodone HCl (Oxycodone Immediate Release Tab) 5 mg PO Q4H PRN PRN Reason: Pain, moderate (4-7) Pantoprazole Sodium (Protonix Ec Tab) 40 mg PO DAILY [facility] Last Admin: 06/12/17 10:56 Dose: 40 mg Sucralfate (Carafate Oral Susp) 1 gm PO BID [facility] Last Admin: 06/12/17 10:56 Dose: 1 gm Ursodiol (Actigall) 300 mg PO DAILY [facility] Last Admin: 06/12/17 10:56 Dose: 300 mg - Labs Labs: 06/12/17 06:30 06/12/17 06:30 PT 23.6 SECONDS (9.4-12.5) H 06/12/17 06:30 INR 2.02 (0.93-1.08) H 06/12/17 06:30 - Constitutional Appears: No Acute Distress, Chronically Ill, Cachectic - Head Exam Head Exam: ATRAUMATIC, NORMOCEPHALIC - Eye Exam Eye Exam: EOMI, PERRL - ENT Exam ENT Exam: Mucous Membranes Moist - Neck Exam Neck Exam: Normal Inspection - Respiratory Exam Respiratory Exam: Clear to Ausculation Bilateral. absent: Rhonchi, Wheezes - Cardiovascular Exam Cardiovascular Exam: RRR, +S1, +S2 - GI/Abdominal Exam GI & Abdominal Exam: Distended, Aspira cathter in place, Soft, Normal Bowel Sounds - Extremities Exam Extremities Exam: Pedal Edema (+2). absent: Tenderness - Neurological Exam Neurological Exam: Alert, Awake, CN II-XII Intact, Oriented x3 - Psychiatric Exam Psychiatric exam: Normal Affect, Normal Mood - Skin Skin Exam: Dry, Warm Assessment and Plan - Assessment and Plan (Free Text) Assessment: 61 year old female with a PMH of Stage IV metastatic colon cancer with intraabdominal carcinomatosis and liver metastases who presents for pain, nausea after aspira cathter insertion. Plan: Stave IV colorectal CA with abdominal carcinomatosis and liver metastases Stomach pain Ascites HTN Hyperbilirubinemia Transaminemia Continue pain control PRN zofran Continue antihypertensives Continue carafate/protonix GI and nephro consulted Adjusted supplementations to ensure patient able to get caloric needs Rug Washer consulted PT/OT Discussed with attending physician
--- NOTE | 2017-06-12 17:28 | CP.PCM.CON ---
<Cathi Meade - Last Filed: 06/12/17 17:26> History of Present Illness - History of Present Illness History of Present Illness: Seen and examined at the bedside earlier today, chart review. Request for GI consultation for ascites. HPI: This is a 61-year-old female with a past medical history of stage IV metastatic colon cancer with metastatic tests assist of the liver, cholelithiasis with recurrent ascites. This patient is known to our service from recent previous admissions. This patient was status post a snare catheter placement by Dr. Christiano Hicks yesterday, postprocedure the patient developed severe abdominal pain and complaints of unsteady gait. The patient had over 4000 mL's of ascitic fluid removed. The patient appears more cachectic, the patient does report decreased appetite not able to tolerate much of oral intake. this morning she tried to consume eggs and could not tolerate this, report pain when eating. She does complain of feeling thirsty. the patient has been following up with her oncologist Dr. Mari bell, she reports that her last chemotherapy treatment was prior to discharge from [facility]. At that time her liver enzymes were trending upwards. She was on Strivarga, which she has not taken sonce in the hospital per patient. Her total bilirubin is noted to be higher than upon discharge : 06/02/17 was 3.6, now over 7. Patient is moving her bowels , denies any melena or bright red blood per rectum. No reports of any vomiting or hematemesis. Past medical history: Endometriosis, colon cancer with liver metastasis, gallstones, acute cholecystitis, GERD, ascities, s/p paracentesis,HTN Surgical history: Laparotomy for uterine fibroids, Port-A-Cath, last colonoscopy was 12/2015 which showed the colon mass, internal hemorrhoids and diverticulosis Allergies: Knowles Family history: Denies Social history: Socially drinks wine on occasion,none recently, smoking denied, recreational drug denies Medications: Reviewed as per MAR ROS: Systems reviewed with positive findings see HPI Past Patient History - Infectious Disease Hx of Infectious Diseases: None - Tetanus Immunizations Tetanus Immunization: Unknown - Past Medical History & Family History Past Medical History?: Yes - Past Social History Smoking Status: Never Smoked - CARDIAC Hx Cardiac Disorders: Yes Hx Hypertension: Yes Hx Pacemaker: No - PULMONARY Hx Respiratory Disorders: No - NEUROLOGICAL Hx Neurological Disorder: No - HEENT Hx HEENT Problems: No - RENAL Hx Chronic Kidney Disease: Yes Hx Kidney Stones: Yes - ENDOCRINE/METABOLIC Hx Endocrine Disorders: No - HEMATOLOGICAL/ONCOLOGICAL Hx Blood Disorders: Yes Hx Anemia: Yes (blood transfusion) Hx Cancer: Yes (colon CA) Hx Chemotherapy: Yes Hx Metastesis: Yes (liver) - INTEGUMENTARY Hx Dermatological Problems: No - MUSCULOSKELETAL/RHEUMATOLOGICAL Hx Musculoskeletal Disorders: No Hx Falls: No - GASTROINTESTINAL Hx Gastrointestinal Disorders: Yes (colon ca) Other/Comment: liver/colon ca on chemo. HX BLOOD TRANSFUSION - GENITOURINARY/GYNECOLOGICAL Hx Genitourinary Disorders: Yes Other/Comment: fibroids, endometriosis - PSYCHIATRIC Hx Psychophysiologic Disorder: No Hx Emotional Abuse: No Hx Physical Abuse: No Hx Substance Use: No - SURGICAL HISTORY Hx Surgeries: Yes Other/Comment: laparotomy for uterine fibroid resectionR chest port placedR chest port placed - ANESTHESIA Hx Anesthesia Reactions: No Hx Malignant Hyperthermia: No Meds Home Medications: Home Medication List Medication Instructions Recorded Confirmed Type LORazepam [Ativan] 0.5 mg IVP Q6H PRN vial 06/29/17 Rx Ondansetron [Zofran Inj] 4 mg IVP Q6H PRN vial 06/29/17 Rx fentaNYL 50 mcg/hr [Duragesic 1 patch TD Q72H patch 06/29/17 Rx Patch 50 mcg/hr] Allergies/Adverse Reactions: Allergies Allergy/AdvReac Type Severity Reaction Status Date / Time knowles Allergy Intermediate URTICARIA Uncoded 06/11/17 19:18 - Medications Medications: Current Medications Fentanyl (Duragesic) 1 patch TD Q72H [facility] Sodium Chloride (Sodium Chloride 0.9%) 1,000 mls @ 40 mls/hr IV .Q24H [facility] Stop: 06/12/17 21:45 Last Admin: 06/11/17 23:27 Dose: 40 mls/hr Lisinopril (Zestril) 2.5 mg PO DAILY [facility] Last Admin: 06/12/17 10:56 Dose: 2.5 mg Metolazone (Zaroxolyn) 2.5 mg PO MWF [facility] Last Admin: 06/12/17 10:56 Dose: 2.5 mg Morphine Sulfate (Morphine) 2 mg IVP Q4H PRN PRN Reason: Pain, severe (8-10) Last Admin: 02/23/18 15:11 Dose: 2 mg Ondansetron HCl (Zofran Inj) 4 mg IVP Q6H PRN PRN Reason: Nausea/Vomiting Oxycodone HCl (Oxycodone Immediate Release Tab) 5 mg PO Q4H PRN PRN Reason: Pain, moderate (4-7) Pantoprazole Sodium (Protonix Ec Tab) 40 mg PO DAILY [facility] Last Admin: 06/12/17 10:56 Dose: 40 mg Sucralfate (Carafate Oral Susp) 1 gm PO BID [facility] Last Admin: 06/12/17 10:56 Dose: 1 gm Ursodiol (Actigall) 300 mg PO DAILY [facility] Last Admin: 06/12/17 10:56 Dose: 300 mg Physical Exam - Constitutional Appears: Cachectic - Head Exam Head Exam: NORMOCEPHALIC - Eye Exam Eye Exam: Scleral icterus - ENT Exam ENT Exam: Mucous Membranes Dry - Neck Exam Neck exam: Positive for: Normal Inspection - Respiratory Exam Respiratory Exam: NORMAL BREATHING PATTERN. absent: Respiratory Distress - Cardiovascular Exam Cardiovascular Exam: +S1, +S2 - GI/Abdominal Exam GI & Abdominal Exam: Distended, Normal Bowel Sounds, Soft, Tenderness (right sided, catheter dressing in place). absent: Guarding, Rebound - Extremities Exam Extremities exam: Positive for: calf tenderness, pedal edema, pedal pulses present - Neurological Exam Neurological exam: Alert, Oriented x3 Additional comments: appear tired - Skin Skin Exam: Dry, Warm Results - Vital Signs Recent Vital Signs: Last Vital Signs Temp 97.4 F L 06/12/17 06:00 Pulse 93 H 06/12/17 10:56 Resp 18 06/12/17 06:00 BP 103/65 06/12/17 10:56 Pulse Ox 99 06/12/17 06:00 - Labs Result Diagrams: 06/12/17 06:30 06/12/17 06:30 Labs: Laboratory Results - last 24 hr 06/12/17 06/12/17 06/12/17 06:30 06:30 06:30 WBC 14.7 H RBC 4.31 Hgb 11.9 L Hct 35.7 L MCV 82.8 MCH 27.6 MCHC 33.3 RDW 21.0 H Plt Count 173 MPV 8.6 Gran % 75.6 H Lymph % (Auto) 7.8 L [place] % (Auto) 15.8 H Eos % (Auto) 0.7 L Baso % (Auto) 0.1 Gran # 11.08 H Lymph # (Auto) 1.2 [place] # (Auto) 2.3 H Eos # (Auto) 0.1 Baso # (Auto) 0.02 PT 23.6 H INR 2.02 H Sodium 131 L Potassium 4.5 Chloride 95 L Carbon Dioxide 23 Anion Gap 17 BUN 57 H Creatinine 1.4 H Est GFR ( Amer) 46 Est GFR (Non-Af Amer) 38 Random Glucose 102 Calcium 7.5 L Total Bilirubin 7.5 H AST 312 H ALT 54 Alkaline Phosphatase 709 H Total Protein 6.9 Albumin 2.7 L Globulin 4.1 Albumin/Globulin Ratio 0.7 L Assessment & Plan - Assessment and Plan (Free Text) Assessment: Assessment: Stage IV metastatic colon cancer with liver metastasis Recurrent ascites status post Aspira catheter Abdominal pain post Aspira catheter insertion Cholelithiasis with recent acute cholecystitis status managed conservatively with antibiotics GERD Hypertension Elevated liver enzymes Plan: On gentle hydration Encouraged to take oral fluids and Ensure supplements Pain management Zofran when necessary Continue Protonix 40 daily and Carafate On your sodium low Trend LFTs Aspira catheter drain orders as per Dr. Hicks Thank you for this consult and for allowing us to participate in your patient's care, further recommendations based upon clinical course. Seen and discussed with Dr. Turk. <Joi Turk V - Last Filed: 06/30/17 15:53> Meds - Medications Medications: Current Medications Fentanyl (Duragesic) 1 patch TD Q72H [facility] Last Admin: 06/12/17 18:21 Dose: 1 patch Lisinopril (Zestril) 2.5 mg PO DAILY [facility] Last Admin: 06/12/17 10:56 Dose: 2.5 mg Metolazone (Zaroxolyn) 2.5 mg PO MWF [facility] Last Admin: 06/12/17 10:56 Dose: 2.5 mg Morphine Sulfate (Morphine) 2 mg IVP Q4H PRN PRN Reason: Pain, severe (8-10) Last Admin: 06/12/17 15:11 Dose: 2 mg Ondansetron HCl (Zofran Inj) 4 mg IVP Q6H PRN PRN Reason: Nausea/Vomiting Oxycodone HCl (Oxycodone Immediate Release Tab) 5 mg PO Q4H PRN PRN Reason: Pain, moderate (4-7) Pantoprazole Sodium (Protonix Ec Tab) 40 mg PO DAILY [facility] Last Admin: 06/12/17 10:56 Dose: 40 mg Sucralfate (Carafate Oral Susp) 1 gm PO BID [facility] Last Admin: 06/12/17 18:20 Dose: 1 gm Ursodiol (Actigall) 300 mg PO DAILY [facility] Last Admin: 06/12/17 10:56 Dose: 300 mg Results - Vital Signs Recent Vital Signs: Last Vital Signs Temp 98.2 F 06/12/17 16:00 Pulse 102 H 06/12/17 16:00 Resp 20 06/12/17 16:00 BP 112/73 06/12/17 16:00 Pulse Ox 98 06/12/17 16:00 - Labs Result Diagrams: 06/29/17 06:40 06/29/17 06:40 Labs: Laboratory Results - last 24 hr 06/12/17 06/12/17 06/12/17 06:30 06:30 06:30 WBC 14.7 H RBC 4.31 Hgb 11.9 L Hct 35.7 L MCV 82.8 MCH 27.6 MCHC 33.3 RDW 21.0 H Plt Count 173 MPV 8.6 Gran % 75.6 H Lymph % (Auto) 7.8 L [place] % (Auto) 15.8 H Eos % (Auto) 0.7 L Baso % (Auto) 0.1 Gran # 11.08 H Lymph # (Auto) 1.2 [place] # (Auto) 2.3 H Eos # (Auto) 0.1 Baso # (Auto) 0.02 PT 23.6 H INR 2.02 H Sodium 131 L Potassium 4.5 Chloride 95 L Carbon Dioxide 23 Anion Gap 17 BUN 57 H Creatinine 1.4 H Est GFR ( Amer) 46 Est GFR (Non-Af Amer) 38 Random Glucose 102 Calcium 7.5 L Total Bilirubin 7.5 H AST 312 H ALT 54 Alkaline Phosphatase 709 H Total Protein 6.9 Albumin 2.7 L Globulin 4.1 Albumin/Globulin Ratio 0.7 L Attending/Attestation - Attestation I have personally seen and examined this patient.: Yes I have fully participated in the care of the patient.: Yes I have reviewed all pertinent clinical information: Yes Notes (Text): This is an addendum to GI consult report dictated by Cathi Meade APN.The patient was seen and examined earlier. Medical records, lab studies, imagings were reviewed. Last 24 hours events reviewed. Agreed with the above treatment plan as outlined in Cathi Meade APN's notes the with the addition of the following On exam abdomen is softly distended with diffuse tenderness, Aspira catheter in place for recurrent ascites patient with metastatic colon cancer. Continue diet as tolerated and encouraging fluid, also monitor LFTs, patient currently off chemotherapy medications. Continue GI prophylaxis and DVT prophylaxis. Pain management. Thank you for allowing us to participate in your patient's care. 06/13/17 00:12 06/30/17 15:41
[2017-06-13] MEDS: Morphine 2 mg/ml ISec IVP PRN ×3 (00:22→22:08)
--- NOTE | 2017-06-13 01:14 | CON ---
DATE: 06/12/2017 REASON FOR CONSULTATION: Edema, ascites, acute kidney injury. HISTORY OF PRESENTING ILLNESS: A 61-year-old lady, known to me from prior evaluation. Patient has a history of stage IV colon cancer with liver mets. She has a history of ascites. She also has a history of acute cholecystitis. She was admitted yesterday status post placement of a catheter for drainage of ascitic fluid. She had almost 5 liters of fluid removed. Postprocedure, patient was complaining of severe pain in the abdomen. She was complaining of pain around the site of the catheter. Hence the patient was admitted. Consultation is requested because of edema. PAST MEDICAL AND SURGICAL HISTORY: Stage IV metastatic colon cancer with liver mets, cholelithiasis, acute cholecystitis, recurrent ascites, acute kidney injury, elevated LFTs. FAMILY HISTORY: Noncontributory. SOCIAL HISTORY: No smoking, no alcohol use, no IV drug abuse. ALLERGIES: NO KNOWN DRUG ALLERGIES. MEDICATIONS AT HOME: Tramadol, omeprazole, ursodiol, Carafate, vitamin D, magnesium, Zaroxolyn, lisinopril, Xgeva, Stivarga. REVIEW OF SYSTEMS: Complains of severe pain in the abdomen, especially around the catheter site. Denies any chest tightness. Denies any shortness of breath. All other systems are reviewed and unremarkable. PHYSICAL EXAMINATION: GENERAL: An elderly lady, lying in bed. VITAL SIGNS: Blood pressure 103/65, heart rate 93, respiratory rate 18, temperature 97.4. HEENT: Normocephalic, atraumatic, positive pallor. NECK: Supple, no JVD. LUNGS: Bilateral equal air entry, decreased breath sounds at bases. CARDIAC: S1 and S2, regular rate and rhythm. No murmur, no rub. ABDOMEN: Obese, distended, positive fluid thrill, bowel sounds present, right-sided catheter. EXTREMITIES: 2+ pitting edema of the lower extremities. INTAKE AND OUTPUT: Not charted. LABORATORY DATA: WBC 14.7, hemoglobin 11.9, hematocrit 36, platelets 173. Sodium 131, potassium 4.1, chloride 95, CO2 of 23, BUN 57, creatinine 1.4, glucose 102, calcium 7.5. Total bili 7.5, AST 312, ALT 54, albumin 2.7. CURRENT MEDICATIONS: Actigall; Carafate; morphine; Protonix; normal saline at 40; Zaroxolyn 2.5 Thursday, Thursday, Thursday; Zestril 2.5 daily. ASSESSMENT: 1. Acute kidney injury. Suspect prerenal azotemia in the setting of intravascular volume depletion with . 2. Hyponatremia, suspect syndrome of inappropriate antidiuretic hormone. 3. Hypertension. 4. Stage IV colon cancer with liver mets. 5. Severe hyperbilirubinemia. 6. Recurrent ascites. PLAN: 1. Hold PAKO inhibitors for the time being. 2. Continue low-dose Zaroxolyn since patient does have edema. 3. Discontinue IV fluids after current bag. 4. Monitor blood pressure. 5. Avoid hypotension. Thank you for the courtesy of this consultation. We will follow this patient with you. Valeria Dominguez MD
[2017-06-13 05:39] LABS: BASO # 0.04 K/mm3 (0.0-2.0); BASO % 0.2 % (0.0-3.0); EOS # 0.1 (0.0-0.7); EOS % 0.4 % (1.5-5.0); GRAN # 13.28 (1.4-6.5); GRAN % 79.2 % (50.0-68.0); HEMOGLOBIN 12.1 g/dL (12.0-16.0); LYMPH # 0.7 (1.2-3.4); LYMPH % 3.9 % (22.0-35.0); MEAN CELL VOLUME 82.9 fl (80.0-105.0); MEAN CORPUSCULAR HGB CONC 33.8 g/dl (31.0-37.0); MONO # 2.7 (0.1-0.6); MONO % 16.3 % (1.0-6.0); PLATELET COUNT 195 10^3/uL (120.0-450.0); RBC 4.32 10^6/uL (3.5-6.1); RED CELL DISTRIBUTION WIDTH 20.6 % (11.5-14.5); WHITE BLOOD COUNT 16.8 10^3/ul (4.5-11.0)
[2017-06-13 06:05] LABS: ALB/GLOB RATIO 0.6 (1.1-1.8); ALBUMIN 2.7 g/dL (3.0-4.8); CALCIUM 7.3 mg/dL (8.4-10.5)
[2017-06-13 07:22] LABS: LYMPHOCYTE 2 % (22.0-35.0); MONOCYTE 7 % (1.0-6.0); MYELOCYTE 1 %; NEUTROPHIL 90 % (50.0-70.0); PLATELET ESTIMATE NORMAL (NORMAL)
[2017-06-13] MEDS: Pantoprazole 40 mg EC Tab PO SCH (09:15)
[2017-06-13] MEDS: Sucralfate 1 gm/10 ml Oral Susp UD PO SCH ×2 (09:15→17:40)
--- NOTE | 2017-06-13 11:23 | PN ---
DATE: SUBJECTIVE: The patient is currently seen attempting to eat breakfast. She appears to be more comfortable. She is complaining of less abdominal pain. She continues to have lower extremity edema. She remains on diuretic therapy. She is being treated for her metastatic colon cancer with liver metastases. She does have a history of cholelithiasis with cholecystitis and ascites. MEDICATIONS: Medication list reviewed. The patient is on Actigall, Carafate, Duragesic, morphine, oxycodone, Protonix, Zaroxolyn three times a week, lisinopril is on hold, and Zofran p.r.n. OBJECTIVE INTAKE/OUTPUT: Intake 1660, output not charted. VITAL SIGNS: Blood pressure is 103/65, pulse 98, temperature 98 degrees, respiratory rate is 19. Pulse ox is 98%. HEENT: Exam shows her be normocephalic, atraumatic. Conjunctivae are pink. Sclerae anicteric. NECK: Supple. No neck vein distention. CHEST: Clear to auscultation and percussion. No rales, rhonchi, or wheezing. CARDIOVASCULAR: Shows a regular rate and rhythm without murmurs, rubs or gallops. ABDOMEN: Mildly distended. Positive ascites. She has a catheter in her right lower quadrant for removal of ascitic fluid. No rebound or guarding. No palpable masses. EXTREMITIES: Show 1+ to 2+ lower extremity edema from her ankles up to her upper thighs with the patient lying supine in bed. No cyanosis or clubbing. LABORATORY DATA AND IMAGING: CBC today, white blood cell count elevated at 16.8, hemoglobin of 12.1, platelet count is 195,000. Coags: PT of 23.6 with an INR of 2.02. Chemistries show sodium, which has dropped from 131 to 129. Potassium was 4.2, chloride is 97 with a CO2 of 21. BUN remains mildly elevated at 55 with a creatinine of 1.5. Her baseline BUN is less than 20. Her baseline creatinine is less than 1. Urine is not available. Urine lytes were not sent. Microbiology, no cultures are pending. ASSESSMENT 1. Acute renal failure with prerenal azotemia superimposed on a patient with no past history of chronic kidney disease. This is likely secondary to volume depletion secondary to use of diuretic therapy for her lower extremity edema and ascites. 2. History of hyponatremia likely secondary to diuretic therapy. I will obtain urine electrolytes and urinalysis. With the patient being on diuretic therapy, her urine electrolytes will likely not be 100 percent accurate. 3. History of hypertension. Blood pressure is controlled, off PAKO inhibition. 4. History of stage IV colon cancer with liver metastases. The patient is on chemotherapy through Dr. Pretty. 5. History of ascites. The patient states she will learn how to drain her abdomen using the recently placed catheter. PLAN 1. Continue to monitor labs closely. 2. Agree with decision to discontinue IV fluid hydration. 3. From my standpoint, we could accept a mild degree of prerenal azotemia and hyponatremia to keep the patient as close to euvolemia as possible. 4. Continue to monitor accurate Is and Os, daily weights and labs on a daily basis. Yang Cuellar MD
[2017-06-13 16:43] LABS: CREATININE,RANDOM URINE 228 mg/dL
[2017-06-13 16:44] LABS: URINE BILIRUBIN LARGE (NEGATIVE); URINE BLOOD NEGATIVE (NEGATIVE); URINE GLUCOSE (UA) 100 mg/dL (NEGATIVE); URINE LEUKOCYTE ESTERASE TRACE Leu/uL (NEGATIVE); URINE PROTEIN 30 mg/dL (<30 mg/dL)
[2017-06-13 16:45] LABS: URINE COLOR DARK YELLOW (YELLOW)
[2017-06-13 16:46] LABS: URINE APPEARANCE CLOUDY (CLEAR)
[2017-06-13 17:10] LABS: URINE AMORPHOUS SEDIMENT SMALL; URINE BACTERIA MANY (NEG); URINE RBC 0 - 2 /hpf (0-2)
[2017-06-14] MEDS: Morphine 2 mg/ml ISec IVP PRN ×2 (06:05→21:59)
[2017-06-14 06:31] LABS: MEAN CELL VOLUME 83.7 fl (80.0-105.0); MEAN CORPUSCULAR HEMOGLOBIN 27.2 pg (25.0-35.0); MEAN CORPUSCULAR HGB CONC 32.5 g/dl (31.0-37.0); MEAN PLATELET VOLUME 9.7 fl (7.0-11.0); RBC 4.41 10^6/uL (3.5-6.1); RED CELL DISTRIBUTION WIDTH 20.2 % (11.5-14.5); WHITE BLOOD COUNT 17.5 10^3/ul (4.5-11.0)
[2017-06-14 06:40] LABS: ALB/GLOB RATIO 0.6 (1.1-1.8); ALBUMIN 2.6 g/dL (3.0-4.8); CALCIUM 7.2 mg/dL (8.4-10.5)
[2017-06-14] MEDS: Sucralfate 1 gm/10 ml Oral Susp UD PO SCH ×2 (09:18→17:08)
[2017-06-14] MEDS: Pantoprazole 40 mg EC Tab PO SCH (09:18)
--- NOTE | 2017-06-14 15:23 | PN ---
DATE: 06/14/2017 This is [facility] visit on the medical floor. For Dr. Pretty. SUBJECTIVE: Patient is a 61-year-old female seen lying awake in bed, reporting that her sacral pain has modestly improved after her abdominal pad was adjusted with the patient still having very poor appetite with the patient known to suffer from stage IV metastatic cancer of the lung with liver metastasis and severe ascites status post Aspira catheter placement with intractable pain of cancer. A 4 L of fluid taken out the day of admission with the patient now being monitored for her free electrolyte imbalance. With this, patient is otherwise resting comfortably, reporting her narcotic analgesics help her pain. OBJECTIVE: VITAL SIGNS: Temperature 97.6, pulse 99, respirations 18, blood pressure 103/61, pulse ox 99%. HEENT: Unremarkable. Sclerae are icteric. NECK: Supple. HEART: Tachy rate, regular rhythm. LUNGS: Minimal decreased breath sounds at the bases. ABDOMEN: Obese with positive ascitic fluid wave with a Aspira catheter noted with dressing dry and intact. EXTREMITIES: + edema of the feet bilaterally. NEUROLOGIC: Awake and alert. SKIN: Warm and dry. LABORATORY DATA: Labs were done. White blood cell count of 17,500, hemoglobin 12.0, hematocrit of 36.9, platelet count 186,000 with a chem metabolic panel showing a sodium of 129, chloride of 95, BUN of 61, creatinine of 1.7, calcium 7.2, T bili of 6.9, AST of 227. Her INR is 2.0 two days prior with a urinalysis showing positive for nitrites, trace leukocyte esterase. The patient is being followed by Dr. Turk and Dr. Dominguez with her medications now to include Actigall, Carafate, fentanyl patch, morphine IV, oxycodone oral p.r.n., Protonix, Zaroxolyn, Zestril and Zofran. ASSESSMENT: Acute renal failure, ascites secondary to stage IV cancer of the colon with liver metastasis, intractable pain of cancer, electrolyte imbalance with hyponatremia. PLAN: For this patient after conversation with doctor is to continue present medical regimen with Stivarga to be restarted as per Dr. Pretty's protocol once the patient is stable with the patient otherwise to be monitored clinically with labs. Prognosis for this patient is guarded. There was discussion with the patient regarding her resuscitation status with patient requesting for code status. We will address this again in the near future with as indicated. This is a complex patient with a comprehensive medically necessary and appropriate visit carried out in excess of 30 minutes [id number] time with the patient. Mark Dennis MD
[2017-06-14] MEDS ORDERED: Simethicone 40 mg/0.6 ml Liquid (30 ml) PO PRN (16:03)
[2017-06-14] MEDS: POLYETHYLENE GLYCOL 3350 17 GM/Dose PACKET PO SCH (17:12)
--- NOTE | 2017-06-14 20:54 | PN ---
DATE: SUBJECTIVE: The patient is currently seen sitting up in bed. She is complaining of increasing abdominal distention, likely secondary to ascites. The patient remains mildly hyponatremic, which appears to be a depletional hyponatremia, she does remain on diuretic therapy. Her lower extremity edema has improved. The patient states she will learn how to use her peritoneal catheter to learn how to empty out ascitic fluid when she becomes distended. MEDICATIONS: Medication list reviewed. The patient is on Actigall, Carafate, Duragesic, morphine, oxycodone, Protonix, Zaroxolyn, Zestril is on hold and Zofran. OBJECTIVE: INTAKE AND OUTPUT: Intake is 480, charted. Output not charted. Weight today is 158 pounds 9 ounces. This appears to be in line with what she weighed on 06/12/2017, but up 4 pounds from 06/14/2017. VITAL SIGNS: Blood pressure 103/61, temperature 97.6, respiratory rate 18, with a pulse of 99. HEENT: Exam shows her be normocephalic, atraumatic. Conjunctivae are pink. Sclerae are icteric. NECK: Supple. No neck vein distention. CHEST: Clear to auscultation and percussion. No rales, rhonchi or wheezing. CARDIOVASCULAR: Shows a regular rate rhythm without murmurs, rubs or gallops. ABDOMEN: Mildly distended. Positive ascites. She has a peritoneal catheter in her right lower quadrant for removal of ascitic fluid. No rebound or guarding or palpable masses. EXTREMITIES: Show significant reduction in her lower extremity edema, only trace to 1+ today. LABORATORY DATA AND IMAGING: CBC, white blood cell count today 17.5, hemoglobin is 12.0, platelet count is 186,000. Chemistry shows sodium down to 129, potassium 4.5, chloride 95, with a CO2 of 23, BUN is 61, with a creatinine of 1.7. Her baseline BUN is less than 20. Her baseline creatinine is 1.0. Urine sodium is less than 5. Urine osmolality was 382, with a random urine creatinine of 228. Fractional secretion of sodium is less than 1%. This is all consistent with renal hypoperfusion and depletional hyponatremia. Microbiology, no cultures are pending. ASSESSMENT: 1. Acute renal failure with prerenal azotemia superimposed on a patient with no past history of chronic kidney disease. This is likely in the setting of volume depletion, renal hypoperfusion and diuretic therapy being used for treatment of her ascites and lower extremity edema. 2. History of hyponatremia. This is felt to be depletional in nature, her urine sodium is less than 5. 3. History of hypertension. Blood pressure is controlled, off PAKO inhibition. 4. History of stage IV colon cancer with liver metastasis. The patient receives chemotherapy through Dr. Pretty. 5. History of ascites. The patient has a recently placed peritoneal catheter and she will be instructed on how to use the catheter to empty out excessive amounts of ascites so that she could be more comfortable. PLAN: 1. Continue to monitor labs closely. 2. I will discontinue Zaroxolyn therapy as her BUN continues to trend higher and her prerenal azotemia appears to be worsening. 3. Unlikely that she has hepatorenal syndrome as her creatinine remains stable in the mid 1 range. 4. Agree with teaching the patient how to use her PD catheter to relieve her abdominal discomfort from ascites. 5. Need to monitor accurate I's and O's which are not being done. Need to monitor accurate daily weights. I will continue to follow labs on a regular basis. Yang Cuellar MD MTDD
[2017-06-15] MEDS: Morphine 2 mg/ml ISec IVP PRN ×2 (05:16→12:50)
[2017-06-15 05:40] LABS: HEMOGLOBIN 11.9 g/dL (12.0-16.0); MEAN CORPUSCULAR HEMOGLOBIN 27.2 pg (25.0-35.0); MEAN CORPUSCULAR HGB CONC 32.4 g/dl (31.0-37.0); MEAN PLATELET VOLUME 9.7 fl (7.0-11.0); RBC 4.37 10^6/uL (3.5-6.1); RED CELL DISTRIBUTION WIDTH 19.8 % (11.5-14.5)
[2017-06-15 05:47] LABS: INR 2.41 (0.93-1.08)
[2017-06-15 05:53] LABS: ALB/GLOB RATIO 0.6 (1.1-1.8); ALBUMIN 2.6 g/dL (3.0-4.8)
--- NOTE | 2017-06-15 08:36 | PN ---
DATE: 06/13/2017 This is [facility] visit on the medical floor. For Dr. Pretty. SUBJECTIVE: The patient is a 61-year-old female with progressive stage IV metastatic cancer of the colon with liver metastasis, retroperitoneal metastasis involving her lower abdomen with the patient status post catheter placed for relief of her tense ascites with 4 L taken off recently by Dr. Christiano Hicks, with patient with profound weakness and intense pain, admitted via the emergency room with analgesia relief obtained with good effect. She has carcinomatosis to the lower abdomen. At present, the patient is now resting comfortably with electrolyte imbalance and fluid management as per Dr. Cuellar and Dr. Dominguez, renal consultants, with slow improvement. However, the patient still has no appetite, with significant lower extremity edema with profound weakness and acute renal failure at this time. PHYSICAL EXAMINATION VITAL SIGNS: Temperature 98, pulse 98, respiration 19, blood pressure 103/65, pulse ox is 98%. HEENT: Sclerae are icteric. Tongue is dry. NECK: Supple. HEART: Tachy rate, regular rhythm. LUNGS: Decreased breath sounds at the bases. ABDOMEN: Minimal distention with catheter noted with dressing dry and intact. EXTREMITIES: +1 edema in the feet bilaterally. NEUROLOGIC: Awake and alert at this visit. SKIN: Warm and dry. LABORATORY DATA: The patient labs were done; white blood cell count of 16.8, hemoglobin of 12.1, hematocrit 35.8, platelet count of 195,000. Her INR is 2.02, with the chem metabolic panel showing a sodium of 129, chloride of 97, BUN of 55, creatinine of 1.5, calcium of 7.3, total bilirubin of 7.3. AST of 262, down from 312 on admission. Alkaline phosphatase of 835. ASSESSMENT: Stage IV metastatic colon cancer with intraabdominal carcinomatosis, liver metastasis, with intractable pain of cancer, ascites, now relieved with a catheter placement, failure to thrive, acute renal failure, electrolyte imbalance with hyponatremia, hypertension, abnormal INR, abnormal LFTs secondary to above, gait disturbance, cachexia of malignancy, pedal edema. PLAN: For this patient, after conversation with Dr. Pretty, is to continue present medical regimen as per Dr. Cuellar, renal, Dr. Turk, gastrointestinal, and Dr. Christiano Hicks. We will continue present medical regimen which includes Ursodiol, Carafate, fentanyl patch was restarted along with morphine IV, oxycodone, Protonix, Zaroxolyn, Zestril. This is a complex patient with comprehensive medically necessary and appropriate visit carried out in excess of 40 minutes [id number] time with the patient. Her questions were answered to her satisfaction. Prognosis for this patient is guarded. We will monitor clinically and with labs. Mark Dennis MD
[2017-06-15] MEDS: POLYETHYLENE GLYCOL 3350 17 GM/Dose PACKET PO SCH ×2 (09:33→18:26)
[2017-06-15] MEDS: Sucralfate 1 gm/10 ml Oral Susp UD PO SCH ×2 (09:33→18:26)
[2017-06-15] MEDS: Pantoprazole 40 mg EC Tab PO SCH (09:33)
[2017-06-15] MEDS: Albumin Human 25% (25 gm/100 ml) IV SCH (12:50)
--- NOTE | 2017-06-15 14:39 | CP.PCM.CON ---
History of Present Illness - History of Present Illness History of Present Illness: Palliative consult requested by Dr James Pretty Reason: Goals of care and advance care planning 61 year old female with history of metastatic colon cancer, carcinomatosis, cholelithiais and ascites who presented with intractable abdominal pain She has history of ascites and had drainage catheter placed. She denied chest pain, nausea, vomiting diarrhea, fever or chills. PMHx: Colon cancer metastasized to liver,carcinomatosis, ascites, cholethiasis, cholecsystitis, OMAR,anorexia, cachexia. Social History: Never smoker, no alcohol or drug use. Single. Family History: Non contributory. Advance Care Planning: The patient does not have an Advanced Directive. Review of Systems - Constitutional Constitutional: Anorexia, Fatigue, Lethargy, Malaise - EENT Additional comments: negative - Cardiovascular Additional comments: negative - Respiratory Respiratory: Dyspnea on Exertion - Gastrointestinal Gastrointestinal: Abdominal Pain, Bloating Additional comments: distention - Genitourinary Additional comments: negative - Musculoskeletal Musculoskeletal: Back Pain - Integumentary Additional comments: peripheral neuropathy, lower extremity edema - Psychiatric Additional comments: negative Past Patient History - Infectious Disease Hx of Infectious Diseases: None - Tetanus Immunizations Tetanus Immunization: Unknown - Past Medical History & Family History Past Medical History?: Yes - Past Social History Smoking Status: Never Smoked - CARDIAC Hx Cardiac Disorders: Yes Hx Hypertension: Yes Hx Pacemaker: No - PULMONARY Hx Respiratory Disorders: No - NEUROLOGICAL Hx Neurological Disorder: No - HEENT Hx HEENT Problems: No - RENAL Hx Chronic Kidney Disease: Yes Hx Kidney Stones: Yes - ENDOCRINE/METABOLIC Hx Endocrine Disorders: No - HEMATOLOGICAL/ONCOLOGICAL Hx Blood Disorders: Yes Hx Anemia: Yes (blood transfusion) Hx Cancer: Yes (colon CA) Hx Chemotherapy: Yes Hx Metastesis: Yes (liver) - INTEGUMENTARY Hx Dermatological Problems: No - MUSCULOSKELETAL/RHEUMATOLOGICAL Hx Musculoskeletal Disorders: No Hx Falls: No - GASTROINTESTINAL Hx Gastrointestinal Disorders: Yes (colon ca) Other/Comment: liver/colon ca on chemo. HX BLOOD TRANSFUSION - GENITOURINARY/GYNECOLOGICAL Hx Genitourinary Disorders: Yes Other/Comment: fibroids, endometriosis - PSYCHIATRIC Hx Psychophysiologic Disorder: No Hx Emotional Abuse: No Hx Physical Abuse: No Hx Substance Use: No - SURGICAL HISTORY Hx Surgeries: Yes Other/Comment: laparotomy for uterine fibroid resectionR chest port placedR chest port placed - ANESTHESIA Hx Anesthesia Reactions: No Hx Malignant Hyperthermia: No Meds Allergies/Adverse Reactions: Allergies Allergy/AdvReac Type Severity Reaction Status Date / Time montano Allergy Intermediate URTICARIA Uncoded 06/11/17 19:18 - Medications Medications: Current Medications Albumin Human (Albumin Human 25% (25 Gm/100 Ml)) 25 gm IV DAILY [facility] Stop: 06/16/17 10:01 Last Admin: 06/15/17 12:50 Dose: 25 gm Alprazolam (Xanax) 0.25 mg PO Q8H [facility] PRN Reason: Protocol Stop: 06/21/17 16:01 Last Admin: 06/15/17 11:40 Dose: Not Given Fentanyl (Duragesic) 1 patch TD Q72H [facility] Last Admin: 06/12/17 18:21 Dose: 1 patch Sodium Chloride (Sodium Chloride 0.9%) 1,000 mls @ 60 mls/hr IV .[id number] [facility] Lisinopril (Zestril) 2.5 mg PO DAILY [facility] Last Admin: 06/12/17 10:56 Dose: 2.5 mg Morphine Sulfate (Morphine) 2 mg IVP Q4H PRN PRN Reason: Pain, severe (8-10) Last Admin: 06/15/17 12:50 Dose: 2 mg Ondansetron HCl (Zofran Inj) 4 mg IVP Q6H PRN PRN Reason: Nausea/Vomiting Last Admin: 06/14/17 22:03 Dose: 4 mg Oxycodone HCl (Oxycodone Immediate Release Tab) 5 mg PO Q4H PRN PRN Reason: Pain, moderate (4-7) Pantoprazole Sodium (Protonix Ec Tab) 40 mg PO DAILY [facility] Last Admin: 06/15/17 09:33 Dose: 40 mg Polyethylene Glycol (Miralax) 17 gm PO BID [facility] Last Admin: 06/15/17 09:33 Dose: 17 gm Simethicone (Mylicon Liq) 80 mg PO QID PRN PRN Reason: Flatulence Last Admin: 06/14/17 17:02 Dose: 80 mg Sucralfate (Carafate Oral Susp) 1 gm PO BID [facility] Last Admin: 06/15/17 09:33 Dose: 1 gm Ursodiol (Actigall) 300 mg PO DAILY [facility] Last Admin: 06/15/17 09:33 Dose: 300 mg Physical Exam - Constitutional Appears: Cachectic, Chronically Ill - Head Exam Head Exam: NORMAL INSPECTION - Eye Exam Eye Exam: Normal appearance, PERRL - ENT Exam ENT Exam: Mucous Membranes Moist, Normal Oropharynx - Neck Exam Neck exam: Positive for: Normal Inspection - Respiratory Exam Respiratory Exam: Clear to Auscultation Bilateral, NORMAL BREATHING PATTERN - Cardiovascular Exam Cardiovascular Exam: REGULAR RHYTHM, +S1, +S2 - GI/Abdominal Exam GI & Abdominal Exam: Diminished Bowel Sounds, Distended, Firm - Extremities Exam Extremities exam: Positive for: normal capillary refill, pedal edema - Back Exam Back exam: NORMAL INSPECTION - Neurological Exam Neurological exam: Alert, Oriented x3 - Skin Skin Exam: Dry, Pallor, Warm - Additional Findings Additional findings: Palliative performance scale rating 40% Results - Vital Signs Recent Vital Signs: Last Vital Signs Temp 97.8 F 06/15/17 08:24 Pulse 106 H 06/15/17 08:24 Resp 19 06/15/17 08:24 BP 101/67 06/15/17 08:24 Pulse Ox 96 06/15/17 08:24 - Labs Result Diagrams: 06/15/17 05:30 06/15/17 05:30 Labs: Laboratory Results - last 24 hr 06/15/17 06/15/17 06/15/17 05:30 05:30 05:30 WBC 17.0 H RBC 4.37 Hgb 11.9 L Hct 36.7 MCV 84.0 MCH 27.2 MCHC 32.4 RDW 19.8 H Plt Count 174 MPV 9.7 PT 28.0 H INR 2.41 H Sodium 127 L Potassium 4.2 Chloride 93 L Carbon Dioxide 21 Anion Gap 17 BUN 60 H Creatinine 1.8 H Est GFR ( Amer) 35 Est GFR (Non-Af Amer) 29 Random Glucose 129 H Calcium 7.0 L Phosphorus 3.5 Magnesium 1.9 Total Bilirubin 7.1 H AST 193 H ALT 44 Alkaline Phosphatase 743 H Total Protein 6.8 Albumin 2.6 L Globulin 4.2 Albumin/Globulin Ratio 0.6 L Assessment & Plan - Assessment and Plan (Free Text) Assessment: 61 year old female with history of metastatic colon cancer, ascites anemia, cholelithiasis who is admitted with intractable pain, ascites, OMAR, transaminitis,hyperbilirubinemia,hyponatremia,hypoalbunemia,weakness, anorexia and cachexia. Tessa is known to me as I provided palliative support for her father in the past. She and I had a very lengthy conversation about quality of life and goals of care. Tessa admits that she is having a harder time performing ADL's. She is committed to participating in physical therapy and making dietary modifications in an effort to increase her stamina. Tessa is independent and has been taking care of all of her own needs. Encouraged to allow family and and friends assist with chores at home. Also encouraged her to have some one come into her home daily to provide regular support. When asked if her pain interfered with quality of life she said that it did. She stated that she is hesitant to take pain medication because she doesn't want to be dependent on it. I explained that her illness is causing her to have chronic pain and that pain medication was warranted and necessary. Clarified that it was important for her to accept the need chronic pain management in order to perform ADL's. Tessa wants to continue treatment for as long as she is able. She understands that her cancer is very advanced but doesn't feel it is time to quit. I reminded her that at some point there may be no other treatment option left. She verbalized understanding of this and stated she will deal with that when it happens. Explained that is important to consider quality of life and comfort. Impressed that if symptoms become intolerable it is important to re evaluate goals. Reassured that option for comfort care would be available. Encouraged her to appoint a POA for health care decision making. She has been thinking about this and has some one in mind. When asked specifically about her wishes regarding resuscitation with CPR and intubation she stated she wants to remain full code status. I reminded her that the cancer was very advanced and that in her situation, it is likely that she would be dependent on machines for survival. She states that if this happens, she does not want tracheostomy/ permanent ventilator support or PEG tube. Impressed that is was necessary to appoint health care POA and and initiate a directive sooner rather than later. Psychosocial support provided. Time spent in goals of care and advance care planning discussion, 45 minutes Plan: Palliative guidance in establishing goals of care
--- NOTE | 2017-06-15 18:26 | PN ---
DATE: 06/15/2017 SUBJECTIVE: Patient is seen sitting in bed. She is awake. She is alert. She still complains of pain on the right side of her abdomen, around the site of the peritoneal catheter. She also reports pain radiating to the back. She denies any diarrhea. She denies any nausea or vomiting. PHYSICAL EXAMINATION: GENERAL: Thinly-built elderly lady sitting in bed. VITAL SIGNS: Blood pressure 106/67, heart rate 106, respiratory rate 19, temperature 97.8. HEENT: Normocephalic, atraumatic, positive pallor. NECK: Supple, no JVD. LUNGS: Bilateral equal air entry, bilateral equal expansion. CARDIAC: S1, S2. Regular rate and rhythm. No murmur, no rub. ABDOMEN: Obese, distended, soft, positive fluid thrill, positive right-sided peritoneal catheter. EXTREMITIES: 2+ pitting edema of the lower extremities. INTAKE AND OUTPUT: Not charted. LABORATORY DATA: WBC 17, hemoglobin 11.9, hematocrit 37, platelets 174. Sodium 127, potassium 4.2, chloride 93, CO2 of 21, BUN 60, creatinine 1.8, glucose 129, calcium 7.0, phosphorus 3.5, magnesium 1.9. Total bili 7.1, AST 193, ALT 44. CURRENT MEDICATIONS: Actigall, albumin 25 g daily, Carafate, Duragesic, MiraLax, morphine, Mylicon, oxycodone, Protonix, Xanax, Zestril which is on hold, Zofran. ASSESSMENT: 1. Acute kidney injury, worsening renal function. Prerenal azotemia versus hepatorenal syndrome. To distinguish between prerenal azotemia and hepatorenal syndrome, we have to ensure patient is volume replete. Currently, she is hypotensive and tachycardic. We will give her a liter of fluids. 2. Stage IV colon cancer with liver mets. 3. Recurrent ascites. 4. History of hypertension. 5. Worsening liver function tests. PLAN: 1. Continue to hold diuretics. 2. Normal saline at 60 mL/hour x1 liter. 3. Avoid hypotension. 4. Intermittent peritoneal drainage. Valeria Dominguez MD
[2017-06-15] MEDS: Sodium Chloride 0.9% 1,000 ML IV SCH (18:30)
[2017-06-16] MEDS: Morphine 2 mg/ml ISec IVP PRN ×3 (00:50→23:13)
--- NOTE | 2017-06-16 04:28 | PN ---
DATE: 06/15/2017 ONCOLOGY PROGRESS NOTE LOCATION: The patient is in room 364, bed 2. PROBLEMS: This is a 61-year-old female with metastatic progressive stage IV carcinoma of the colon with intraabdominal carcinomatosis, currently on Stivarga systemic chemotherapy, targeted therapy, which is a multikinase inhibitor, works at 2 levels, has had about 10 doses of the treatment given daily at 160 mg and the treatment was held last week because of progressively worsening liver dysfunction, who was admitted to the hospital electively after placement of an Aspira catheter and drainage of more than 4.5 L for symptomatic support of the patient decompensated after the tapping. Patient has been admitted to the hospital to monitor her very carefully including electrolytes and to see any other complications that the volume paracentesis can have on the electrolyte in the neurocognitive process. Patient had been feeling little bit better since she got admitted to the hospital on Thursday over the last 2 days. Patient's overall clinical condition has perked up. She is sitting out of bed now and overall appears better. Subjectively, she is awake, she is out of bed. She feels that she not as weak as she was yesterday. She was able to walk. She has been eating a little bit and keeping Ensure clear liquids by mouth as tolerated. No significant nausea or vomiting. No significant fever or chills. Patient complains of pain in the right side of the abdomen, part of the peritoneal catheter. She also states the pain is radiating to the back. Denies any significant nausea, vomiting at this point in time. PHYSICAL EXAMINATION: GENERAL: Reveals the patient to be awake, alert and oriented. Temporal muscle wasting is noted. VITAL SIGNS: Reveal blood pressure 106/67, heart rate is 106, respirations 19 per minute, T-max is 98.4. HEENT: Head is normocephalic and atraumatic. Conjunctivae are pale. Sclerae is icteric. NECK: Supple. There is no adenopathy. No jugular venous distention noted. LUNGS: Reveals bilateral air entry with good expansion . HEART: Reveals PMI to be in the fifth intercostal space. No gallop or murmur is heard. ABDOMEN: Distended, protuberant, soft. Fluid cell is positive. Patient has a right-sided Aspira peritoneal catheter. Patient has tenderness over the right upper quadrant which on a scale of 0 to 10 is at least 5. EXTREMITIES: Patient has 2+ pitting edema of both lower extremities. LABORATORY DATA: Lab data from today reveals a white count of 17, hemoglobin 11.9, hematocrit 37, platelet count of 174,000. Sodium is 127, K is 4.2, chloride is 93, CO2 is 21, BUN is 60, creatinine 1.8, glucose of 129. Calcium is 7, phosphorus 3.5, magnesium 1.9, total bili is 7.1, AST of 193, ALT of 44. CURRENT MEDICATIONS: Include Actigall, Carafate, Duragesic, MiraLax, morphine, Mylicon, oxycodone, Protonix, Lasix, Zestril, which is on hold, Zotrevor p.r.n. ASSESSMENT NOTES AND PLAN: Patient has acute kidney injury with worsening renal function secondary to prerenal azotemia versus hepatorenal syndrome. Patient has to have at least intra volume repletion done. Currently she is hypotensive and tachycardic. She will need intravenous fluids. I have also ordered intravenous albumin to boost up her oncotic pressure. Patient has stage IV colon carcinoma with metastasis, both liver metastasis and intraabdominal carcinomatosis for which she is on Stivarga which is on hold currently because of the abnormal liver function tests, recurrent ascites for which we are going to tap her again today after she gets the intravenous albumin, cachexia of malignancy for which we are giving her oral alimentation as best as it is feasible. Overall prognosis is poor. We are giving her the benefit of doubt, given that the new medication Stivarga, which she has not had optimal treatment with yet. Worsening liver functions with superimposed cholelithiasis is of concern to us at this point in time as well. PLAN: We will continue to hold diuretics. Patient will get IV albumin, will have paracentesis today. We will try to avoid large volume paracentesis paracentesis every other day as needed and to check on oral intake as well. Blood work for a.m. has been requested. Also requested palliative care nurse to see her, so that we can encourage the patient to make her own decisions as far as DNR/DNI is concerned. Time spent with the patient was greater than 45 minutes. This is a medically necessary and appropriate visit for this patient. Thalia Pretty MD [facility] # [id number]
[2017-06-16] MEDS: Sodium Chloride 0.9% 1,000 ML IV SCH ×2 (05:55→23:14)
[2017-06-16 06:24] LABS: HEMOGLOBIN 11.3 g/dL (12.0-16.0); MEAN CELL VOLUME 83.9 fl (80.0-105.0); MEAN CORPUSCULAR HEMOGLOBIN 27.6 pg (25.0-35.0); MEAN CORPUSCULAR HGB CONC 32.8 g/dl (31.0-37.0); MEAN PLATELET VOLUME 9.7 fl (7.0-11.0); RBC 4.1 10^6/uL (3.5-6.1); RED CELL DISTRIBUTION WIDTH 19.9 % (11.5-14.5); WHITE BLOOD COUNT 16.6 10^3/ul (4.5-11.0)
[2017-06-16 08:02] LABS: ALB/GLOB RATIO 0.7 (1.1-1.8); ALBUMIN 2.6 g/dL (3.0-4.8); CALCIUM 6.7 mg/dL (8.4-10.5)
[2017-06-16] MEDS: POLYETHYLENE GLYCOL 3350 17 GM/Dose PACKET PO SCH ×2 (10:49→17:47)
[2017-06-16] MEDS: Albumin Human 25% (25 gm/100 ml) IV SCH (10:49)
[2017-06-16] MEDS: Sucralfate 1 gm/10 ml Oral Susp UD PO SCH ×2 (10:49→17:47)
[2017-06-16] MEDS: Pantoprazole 40 mg EC Tab PO SCH (10:49)
[2017-06-16] MEDS ORDERED: Albumin Human 25% (25 gm/100 ml) IV ONE (11:19)
--- NOTE | 2017-06-16 11:45 | CP.PCM.PN ---
Subjective - Date & Time of Evaluation Date of Evaluation: 06/16/17 Time of Evaluation: 07:40 - Subjective Subjective: Calvin Dill D.O. PGY-2, Internal Medicine Resident, Hem/Onc Progress Note 61 year old female with a PMH of Stage IV metastatic colon cancer with intraabdominal carcinomatosis and liver metastases who presents for pain, nausea after aspira cathter insertion. Patient was seen and evaluated. Doing somewhat better, still uncomfortable at times particularly belly. Still overall optimistic about getting better. Objective - Vital Signs/Intake and Output Vital Signs (last 24 hours): Temp Pulse Resp BP Pulse Ox 97.4 F L 102 H 20 107/69 99 06/16/17 08:35 06/16/17 08:35 06/16/17 08:35 06/16/17 08:35 06/16/17 08:35 Intake and Output: 06/16/17 06/16/17 06:59 18:59 Intake Total 1560 Balance 1560 - Medications Medications: Current Medications Alprazolam (Xanax) 0.25 mg PO Q8H [facility] PRN Reason: Protocol Stop: 06/21/17 16:01 Last Admin: 06/16/17 10:56 Dose: 0.25 mg Fentanyl (Duragesic) 1 patch TD Q72H [facility] Last Admin: 06/12/17 18:21 Dose: 1 patch Sodium Chloride (Sodium Chloride 0.9%) 1,000 mls @ 60 mls/hr IV .[id number] [facility] Last Admin: 06/16/17 05:55 Dose: 60 mls/hr Lisinopril (Zestril) 2.5 mg PO DAILY [facility] Last Admin: 06/12/17 10:56 Dose: 2.5 mg Morphine Sulfate (Morphine) 2 mg IVP Q4H PRN PRN Reason: Pain, severe (8-10) Last Admin: 06/16/17 00:50 Dose: 2 mg Ondansetron HCl (Zofran Inj) 4 mg IVP Q6H PRN PRN Reason: Nausea/Vomiting Last Admin: 06/16/17 11:03 Dose: 4 mg Oxycodone HCl (Oxycodone Immediate Release Tab) 5 mg PO Q4H PRN PRN Reason: Pain, moderate (4-7) Pantoprazole Sodium (Protonix Ec Tab) 40 mg PO DAILY [facility] Last Admin: 06/16/17 10:49 Dose: Not Given Polyethylene Glycol (Miralax) 17 gm PO BID [facility] Last Admin: 06/16/17 10:49 Dose: Not Given Simethicone (Mylicon Liq) 80 mg PO QID PRN PRN Reason: Flatulence Last Admin: 06/14/17 17:02 Dose: 80 mg Sucralfate (Carafate Oral Susp) 1 gm PO BID [facility] Last Admin: 06/16/17 10:49 Dose: Not Given Ursodiol (Actigall) 300 mg PO DAILY [facility] Last Admin: 06/16/17 10:48 Dose: 300 mg - Labs Labs: 06/16/17 06:00 06/16/17 06:00 PT 28.0 SECONDS (9.4-12.5) H 06/15/17 05:30 INR 2.41 (0.93-1.08) H 06/15/17 05:30 - Constitutional Appears: No Acute Distress, Chronically Ill, Cachectic - Head Exam Head Exam: ATRAUMATIC, NORMOCEPHALIC - Eye Exam Eye Exam: EOMI, PERRL - ENT Exam ENT Exam: Mucous Membranes Moist - Neck Exam Neck Exam: Normal Inspection - Respiratory Exam Respiratory Exam: Clear to Ausculation Bilateral. absent: Rhonchi, Wheezes - Cardiovascular Exam Cardiovascular Exam: RRR, +S1, +S2 - GI/Abdominal Exam GI & Abdominal Exam: Distended, Aspira cathter in place, Soft, Normal Bowel Sounds - Extremities Exam Extremities Exam: Pedal Edema (+2). absent: Tenderness - Neurological Exam Neurological Exam: Alert, Awake, CN II-XII Intact, Oriented x3 - Psychiatric Exam Psychiatric exam: Normal Affect, Normal Mood - Skin Skin Exam: Dry, Warm Assessment and Plan - Assessment and Plan (Free Text) Assessment: 61 year old female with a PMH of Stage IV metastatic colon cancer with intraabdominal carcinomatosis and liver metastases who presents for pain, nausea after aspira cathter insertion. Plan: Stave IV colorectal CA with abdominal carcinomatosis and liver metastases Stomach pain Ascites HTN Hyperbilirubinemia Transaminemia Hyponatremia Dehydration with associated OMAR LFTs downtrending Palliative on the case, continue aggressive measures at this time Discussed pain control at length Got albumin yesterday and had fluid removed per aspira catheter with some pain relief Plan to give albumin again today and then remove some more fluid Continue carafate/protonix Nephro consulted, recs appreciated, FENa <1% dehydrated, back on IVF, BUN and Cr downtrending To assist in increasing oncotic pressure to prevent worsening ascites have given albumin and will start pro-stat to increase protein intake Continue PT/OT, encouraged OOB Discussed with attending physician
--- NOTE | 2017-06-16 15:15 | CP.PCM.PN ---
<Gina Ludwig - Last Filed: 06/16/17 15:26> Subjective - Date & Time of Evaluation Date of Evaluation: 06/16/17 Time of Evaluation: 10:30 - Subjective Subjective: Dr. Turk Progress Note Pt was seen and examined at bedside. Pt found to be sitting up in mild abdominal discomfort. Pt states she feels fatigued and nauseous, however was able to tolerate liquid oral intake. No acute or adverse events overnight as per nursing staff. Pt denied fever, chills, shortness of breath, chest pains, vomiting, constipation, diarrhea, or urinary symptoms. Objective - Vital Signs/Intake and Output Vital Signs (last 24 hours): Temp Pulse Resp BP Pulse Ox 97.4 F L 102 H 20 107/69 99 06/16/17 08:35 06/16/17 08:35 06/16/17 08:35 06/16/17 08:35 06/16/17 08:35 Intake and Output: 06/16/17 06/16/17 06:59 18:59 Intake Total 1560 Balance 1560 - Medications Medications: Current Medications Alprazolam (Xanax) 0.25 mg PO Q8H [facility] PRN Reason: Protocol Stop: 06/21/17 16:01 Last Admin: 06/16/17 10:56 Dose: 0.25 mg Fentanyl (Duragesic) 1 patch TD Q72H [facility] Last Admin: 06/12/17 18:21 Dose: 1 patch Sodium Chloride (Sodium Chloride 0.9%) 1,000 mls @ 60 mls/hr IV .[id number] [facility] Last Admin: 06/16/17 05:55 Dose: 60 mls/hr Lisinopril (Zestril) 2.5 mg PO DAILY [facility] Last Admin: 06/12/17 10:56 Dose: 2.5 mg Morphine Sulfate (Morphine) 2 mg IVP Q4H PRN PRN Reason: Pain, severe (8-10) Last Admin: 06/16/17 14:42 Dose: 2 mg Ondansetron HCl (Zofran Inj) 4 mg IVP Q6H PRN PRN Reason: Nausea/Vomiting Last Admin: 06/16/17 11:03 Dose: 4 mg Oxycodone HCl (Oxycodone Immediate Release Tab) 5 mg PO Q4H PRN PRN Reason: Pain, moderate (4-7) Pantoprazole Sodium (Protonix Ec Tab) 40 mg PO DAILY [facility] Last Admin: 06/16/17 10:49 Dose: Not Given Polyethylene Glycol (Miralax) 17 gm PO BID [facility] Last Admin: 06/16/17 10:49 Dose: Not Given Simethicone (Mylicon Liq) 80 mg PO QID PRN PRN Reason: Flatulence Last Admin: 06/14/17 17:02 Dose: 80 mg Sucralfate (Carafate Oral Susp) 1 gm PO BID [facility] Last Admin: 06/16/17 10:49 Dose: Not Given Ursodiol (Actigall) 300 mg PO DAILY [facility] Last Admin: 06/16/17 10:48 Dose: 300 mg - Labs Labs: 06/16/17 06:00 06/16/17 06:00 PT 28.0 SECONDS (9.4-12.5) H 06/15/17 05:30 INR 2.41 (0.93-1.08) H 06/15/17 05:30 - Constitutional Appears: No Acute Distress - Head Exam Head Exam: ATRAUMATIC, NORMAL INSPECTION, NORMOCEPHALIC - Eye Exam Eye Exam: EOMI, Normal appearance, PERRL Pupil Exam: NORMAL ACCOMODATION, PERRL - ENT Exam ENT Exam: Mucous Membranes Moist, Normal Exam - Respiratory Exam Respiratory Exam: Decreased Breath Sounds, NORMAL BREATHING PATTERN Additional comments: RT aspira catheter in place - Cardiovascular Exam Cardiovascular Exam: REGULAR RHYTHM, +S1, +S2. absent: Murmur - GI/Abdominal Exam GI & Abdominal Exam: Soft, Normal Bowel Sounds. absent: Tenderness - Extremities Exam Extremities Exam: Full ROM, Normal Capillary Refill, Normal Inspection. 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 Stage IV metastatic colon cancer with liver metastasis Recurrent ascites status post Aspira catheter Abdominal pain post Aspira catheter insertion Cholelithiasis with recent acute cholecystitis status managed conservatively with antibiotics GERD Hypertension Elevated liver enzymes On gentle hydration Encouraged to take oral fluids and Ensure supplements Pain management Zofran when necessary Continue Protonix 40 daily and Carafate On sodium low Trend LFTs, downward trend Aspira catheter drain orders as per Dr. Hicks Thank you for this consult and for allowing us to participate in your patient's care, further recommendations based upon clinical course. Seen and discussed with Dr. Turk. <Joi Turk V - Last Filed: 06/17/17 00:51> Objective - Vital Signs/Intake and Output Vital Signs (last 24 hours): Temp Pulse Resp BP Pulse Ox 97.9 F 92 H 20 102/60 100 06/16/17 17:15 06/16/17 17:15 06/16/17 17:15 06/16/17 17:15 06/16/17 17:15 Intake and Output: 06/16/17 06/17/17 18:59 06:59 Intake Total 120 Balance 120 - Medications Medications: Current Medications Alprazolam (Xanax) 0.25 mg PO Q8H [facility] PRN Reason: Protocol Stop: 06/21/17 16:01 Last Admin: 06/16/17 23:13 Dose: 0.25 mg Sodium Chloride (Sodium Chloride 0.9%) 1,000 mls @ 60 mls/hr IV .[id number] [facility] Last Admin: 06/16/17 23:14 Dose: 60 mls/hr Lisinopril (Zestril) 2.5 mg PO DAILY [facility] Last Admin: 06/12/17 10:56 Dose: 2.5 mg Morphine Sulfate (Morphine) 2 mg IVP Q4H PRN PRN Reason: Pain, severe (8-10) Last Admin: 06/16/17 23:13 Dose: 2 mg Ondansetron HCl (Zofran Inj) 4 mg IVP Q6H PRN PRN Reason: Nausea/Vomiting Last Admin: 06/16/17 23:13 Dose: 4 mg Oxycodone HCl (Oxycodone Immediate Release Tab) 5 mg PO Q4H PRN PRN Reason: Pain, moderate (4-7) Pantoprazole Sodium (Protonix Ec Tab) 40 mg PO DAILY [facility] Last Admin: 06/16/17 10:49 Dose: Not Given Polyethylene Glycol (Miralax) 17 gm PO BID [facility] Last Admin: 06/16/17 17:47 Dose: 17 gm Simethicone (Mylicon Liq) 80 mg PO QID PRN PRN Reason: Flatulence Last Admin: 06/14/17 17:02 Dose: 80 mg Sucralfate (Carafate Oral Susp) 1 gm PO BID [facility] Last Admin: 06/16/17 17:47 Dose: 1 gm Ursodiol (Actigall) 300 mg PO DAILY [facility] Last Admin: 06/16/17 10:48 Dose: 300 mg - Labs Labs: 06/16/17 06:00 06/16/17 06:00 PT 28.0 SECONDS (9.4-12.5) H 06/15/17 05:30 INR 2.41 (0.93-1.08) H 06/15/17 05:30 Attending/Attestation - Attestation I have personally seen and examined this patient.: Yes I have fully participated in the care of the patient.: Yes I have reviewed all pertinent clinical information, including history, physical exam and plan: Yes Notes (Text): This is an addendum to GI consult report dictated by the General Ophthalmologist.The patient was seen and examined earlier.Medical records ,lab studies,imaging were reviewed . Last 24hrs events reviewed. Agreed with the above treatment plan as outlined in General Ophthalmologist 's notes the with the addition of the following status post removal of the ascitic fluid today feels better still has some chronic discomfort in the right upper quadrant area Total bilirubin shows slight downward trend. History of gallstones, decreased to every second to the chemotherapy Surgeon does not want any intervention in view of the advanced disease and carcinomatosis Consider repeating the sonogram if there is any significant increase in LFTs 06/17/17 00:47
--- NOTE | 2017-06-16 18:33 | PN ---
DATE: SUBJECTIVE: The patient is currently seen on 3R. She is lying supine in bed. She states she is tired today. She states she had fluid removed yesterday through the peritoneal dialysis catheter. She remains on IV normal saline at 60 mL an hour. She is also receiving Albumisol. The patient's diuretics had been discontinued because of a rising BUN and creatinine. MEDICATIONS: Medication list reviewed. The patient is on Actigall, Carafate, Duragesic, MiraLAX, morphine, Mylicon, oxycodone, Protonix, normal saline, Xanax, Zestril is currently on hold, and Zofran. PHYSICAL EXAMINATION: INTAKE/OUTPUT: Intake 1440, output not charted. In the previous 24 hours, the patient had 1500 mL emptied from her PD catheter. VITAL SIGNS: Blood pressure 107/69, pulse of 102, temperature 97.4, respiratory rate 20 with an oxygen saturation of 99%. HEENT: Normocephalic, atraumatic. Conjunctivae are pink. Sclerae are icteric. NECK: Supple. No neck vein distention. CHEST: Clear to auscultation and percussion. No rales, rhonchi, or wheezing. CARDIOVASCULAR: Shows a regular rate and rhythm without murmurs, rubs, or gallops. ABDOMEN: Mildly distended. Positive ascites. She has a PD catheter in right lower quadrant. No rebound, guarding, or palpable masses. EXTREMITIES: Show no significant pitting edema of her lower extremity. No cyanosis or clubbing. LABORATORY DATA AND IMAGING STUDIES: CBC today; white blood cell count 16.6, hemoglobin 11.3 with a platelet count 151,000. Coags; PT of 28 with an INR of 2.41. Chemistries today; sodium stable at 130, potassium 4.3, chloride 97 with CO2 of 21, BUN is improved at 53, creatinine is down to 1.4 from 1.8. This is with IV fluid hydration and holding diuretics and perhaps mild improvement in her blood pressure control. Glucose is 83. Calcium level has dropped to 6.7. Albumin is 2.6, corrected calcium is 7.8, it remains low. Bilirubin is elevated at 7.1. Liver enzymes are elevated. Last phosphorus level was 3.5 and magnesium level of 1.9. ASSESSMENT: 1. Prerenal azotemia with acute renal failure in the setting of volume depletion, renal hypoperfusion, and diuretic therapy. The patient has no past history of chronic kidney disease. With discontinuation of her diuretics and very cautious IV fluid hydration, her BUN and creatinine appear to be slowly falling back to normal. 2. Hyponatremia. This was depletional in nature with a urine sodium of less than 5. The patient will continue normal saline cautiously. 3. History of hypertension. Blood pressure has been in the borderline low range. She is currently receiving Albumisol and is off all blood pressure medications. Her PAKO inhibitor was discontinued. 4. History of stage IV colon cancer with liver metastasis. The patient is receiving chemotherapy under the guidance of Dr. Pretty. 5. History of ascites. The patient states she will likely learn in the next 24 to 48 hours how to use the peritoneal dialysis catheter in a sterile way to empty fluid, so she could do this at home to relieve the ascites. PLAN: 1. Continue to monitor labs closely. 2. Continue off all diuretic therapy. 3. Continue cautious IV fluid hydration with normal saline. 4. The patient should be instructed how to use the PD catheter to empty ascitic fluid. 5. Need to monitor very accurate I's and O's and monitor daily weights. 6. We will continue to monitor the patient closely until her BUN and creatinine fall back to her baseline range, which is a normal BUN and creatinine. Yang Cuellar MD
[2017-06-17] MEDS: Morphine 2 mg/ml ISec IVP PRN ×3 (06:23→23:04)
[2017-06-17 06:38] LABS: HEMOGLOBIN 11.3 g/dL (12.0-16.0); MEAN CELL VOLUME 83.3 fl (80.0-105.0); MEAN CORPUSCULAR HEMOGLOBIN 27.3 pg (25.0-35.0); MEAN CORPUSCULAR HGB CONC 32.8 g/dl (31.0-37.0); MEAN PLATELET VOLUME 9.6 fl (7.0-11.0); RBC 4.14 10^6/uL (3.5-6.1); RED CELL DISTRIBUTION WIDTH 20.2 % (11.5-14.5); WHITE BLOOD COUNT 17.6 10^3/ul (4.5-11.0)
[2017-06-17 07:35] LABS: ALB/GLOB RATIO 0.7 (1.1-1.8); ALBUMIN 2.7 g/dL (3.0-4.8); ALT/SGPT 31 U/L (7-56); AST/SGOT 128 U/L (14-36); BLOOD UREA NITROGEN 44 mg/dL (7-21); CALCIUM 6.7 mg/dL (8.4-10.5); GFR AFRICAN-AMERICAN > 60; GFR NON-AFRICAN AMERICAN 50
[2017-06-17] MEDS: Sucralfate 1 gm/10 ml Oral Susp UD PO SCH ×2 (09:29→17:34)
[2017-06-17] MEDS: Pantoprazole 40 mg EC Tab PO SCH (09:29)
[2017-06-17] MEDS: POLYETHYLENE GLYCOL 3350 17 GM/Dose PACKET PO SCH ×2 (09:31→19:05)
--- NOTE | 2017-06-17 13:27 | CP.PCM.PN ---
Subjective - Date & Time of Evaluation Date of Evaluation: 06/17/17 Time of Evaluation: 07:10 - Subjective Subjective: Calvin Dill D.O. PGY-2, Internal Medicine Resident, Hem/Onc Progress Note 61 year old female with a PMH of Stage IV metastatic colon cancer with intraabdominal carcinomatosis and liver metastases who presents for pain, nausea after aspira cathter insertion. Patient was seen and evaluate this morning. Doing about the same, still weak, but states was able to get up to chair yesterday. No overnight events. Objective - Vital Signs/Intake and Output Vital Signs (last 24 hours): Temp Pulse Resp BP Pulse Ox 97.8 F 97 H 18 116/73 97 06/17/17 06:00 06/17/17 06:00 06/17/17 06:00 06/17/17 06:00 06/17/17 06:00 Intake and Output: 06/17/17 06/17/17 06:59 18:59 Intake Total 120 Balance 120 - Medications Medications: Current Medications Alprazolam (Xanax) 0.25 mg PO Q8H [facility] PRN Reason: Protocol Stop: 06/21/17 16:01 Last Admin: 06/17/17 09:31 Dose: Not Given Dronabinol (Marinol) 2.5 mg PO DAILY [facility] Last Admin: 06/17/17 12:40 Dose: 2.5 mg Sodium Chloride (Sodium Chloride 0.9%) 1,000 mls @ 60 mls/hr IV .[id number] [facility] Last Admin: 06/16/17 23:14 Dose: 60 mls/hr Lisinopril (Zestril) 2.5 mg PO DAILY [facility] Last Admin: 06/12/17 10:56 Dose: 2.5 mg Morphine Sulfate (Morphine) 2 mg IVP Q4H PRN PRN Reason: Pain, severe (8-10) Last Admin: 06/17/17 06:23 Dose: 2 mg Ondansetron HCl (Zofran Inj) 4 mg IVP Q6H PRN PRN Reason: Nausea/Vomiting Last Admin: 06/17/17 12:53 Dose: 4 mg Oxycodone HCl (Oxycodone Immediate Release Tab) 5 mg PO Q4H PRN PRN Reason: Pain, moderate (4-7) Pantoprazole Sodium (Protonix Ec Tab) 40 mg PO DAILY [facility] Last Admin: 06/17/17 09:29 Dose: 40 mg Polyethylene Glycol (Miralax) 17 gm PO BID [facility] Last Admin: 06/17/17 09:31 Dose: Not Given Simethicone (Mylicon Liq) 80 mg PO QID PRN PRN Reason: Flatulence Last Admin: 06/14/17 17:02 Dose: 80 mg Sucralfate (Carafate Oral Susp) 1 gm PO BID [facility] Last Admin: 06/17/17 09:29 Dose: 1 gm Ursodiol (Actigall) 300 mg PO DAILY [facility] Last Admin: 06/17/17 09:29 Dose: 300 mg - Labs Labs: 06/17/17 06:20 06/17/17 06:20 PT 28.0 SECONDS (9.4-12.5) H 06/15/17 05:30 INR 2.41 (0.93-1.08) H 06/15/17 05:30 - Constitutional Appears: No Acute Distress, Chronically Ill, Cachectic - Head Exam Head Exam: ATRAUMATIC, NORMOCEPHALIC - Eye Exam Eye Exam: EOMI, PERRL - ENT Exam ENT Exam: Mucous Membranes Moist - Neck Exam Neck Exam: Normal Inspection - Respiratory Exam Respiratory Exam: Clear to Ausculation Bilateral. absent: Rhonchi, Wheezes - Cardiovascular Exam Cardiovascular Exam: RRR, +S1, +S2 - GI/Abdominal Exam GI & Abdominal Exam: Distended, Aspira cathter in place, Soft, Normal Bowel Sounds - Extremities Exam Extremities Exam: Pedal Edema (+2). absent: Tenderness - Neurological Exam Neurological Exam: Alert, Awake, CN II-XII Intact, Oriented x3 - Psychiatric Exam Psychiatric exam: Normal Affect, Normal Mood - Skin Skin Exam: Dry, Warm Assessment and Plan - Assessment and Plan (Free Text) Assessment: 61 year old female with a PMH of Stage IV metastatic colon cancer with intraabdominal carcinomatosis and liver metastases who presents for pain, nausea after aspira cathter insertion. Plan: Stave IV colorectal CA with abdominal carcinomatosis and liver metastases Stomach pain Ascites s/p aspira catheter and drainage x2 HTN Hyperbilirubinemia Transaminemia Hyponatremia Dehydration with associated OMAR Anorexia and cachexia GI following, will discuss hyperbilirubinemia in setting of improved AST and ALT Discussed appetite stimulants, patient amenable but has not tolerated megace in the past, discussed dronabinol vs cyprohepatadine with pharmacy in the setting of her worsening hepatic function, will start dronabinol at half the daily dose and monitor closely Palliative on the case, continue aggressive measures at this time Continue pain control Continue carafate/protonix Nephro following, recs appreciated, still clinically dehydrated Continue PO protein supplements, maternity nurse consulted Continue PT/OT, encouraged OOB Once clinically improved possible HWS/EILEEN Discussed with attending physician
--- NOTE | 2017-06-17 14:55 | CP.PCM.PN ---
<Gina Ludwig - Last Filed: 06/17/17 14:52> Subjective - Date & Time of Evaluation Date of Evaluation: 06/17/17 Time of Evaluation: 08:00 - Subjective Subjective: Dr. Turk Progress Note Pt was seen and examined at bedside. Pt found to be resting comfortably. Pt states she feels better today than yesterday. No acute or adverse events overnight as per nursing staff. Pt tolerating diet and moving bowels and bladder regularly. Pt denied fever, chills, shortness of breath, chest pains, vomiting, constipation, diarrhea, or urinary symptoms. Objective - Vital Signs/Intake and Output Vital Signs (last 24 hours): Temp Pulse Resp BP Pulse Ox 97.8 F 97 H 18 116/73 97 06/17/17 06:00 06/17/17 06:00 06/17/17 06:00 06/17/17 06:00 06/17/17 06:00 Intake and Output: 06/17/17 06/17/17 06:59 18:59 Intake Total 120 Balance 120 - Medications Medications: Current Medications Alprazolam (Xanax) 0.25 mg PO Q8H [facility] PRN Reason: Protocol Stop: 06/21/17 16:01 Last Admin: 06/17/17 09:31 Dose: Not Given Dronabinol (Marinol) 2.5 mg PO DAILY [facility] Last Admin: 06/17/17 12:40 Dose: 2.5 mg Lisinopril (Zestril) 2.5 mg PO DAILY [facility] Last Admin: 06/12/17 10:56 Dose: 2.5 mg Morphine Sulfate (Morphine) 2 mg IVP Q4H PRN PRN Reason: Pain, severe (8-10) Last Admin: 06/17/17 14:15 Dose: 2 mg Ondansetron HCl (Zofran Inj) 4 mg IVP Q6H PRN PRN Reason: Nausea/Vomiting Last Admin: 06/17/17 12:53 Dose: 4 mg Oxycodone HCl (Oxycodone Immediate Release Tab) 5 mg PO Q4H PRN PRN Reason: Pain, moderate (4-7) Pantoprazole Sodium (Protonix Ec Tab) 40 mg PO DAILY [facility] Last Admin: 06/17/17 09:29 Dose: 40 mg Polyethylene Glycol (Miralax) 17 gm PO BID [facility] Last Admin: 06/17/17 09:31 Dose: Not Given Simethicone (Mylicon Liq) 80 mg PO QID PRN PRN Reason: Flatulence Last Admin: 06/14/17 17:02 Dose: 80 mg Sucralfate (Carafate Oral Susp) 1 gm PO BID [facility] Last Admin: 06/17/17 09:29 Dose: 1 gm Ursodiol (Actigall) 300 mg PO DAILY [facility] Last Admin: 06/17/17 09:29 Dose: 300 mg - Labs Labs: 06/17/17 06:20 06/17/17 06:20 PT 28.0 SECONDS (9.4-12.5) H 06/15/17 05:30 INR 2.41 (0.93-1.08) H 06/15/17 05:30 - Constitutional Appears: No Acute Distress - Head Exam Head Exam: ATRAUMATIC, NORMAL INSPECTION, NORMOCEPHALIC - Eye Exam Eye Exam: EOMI, Normal appearance, PERRL Pupil Exam: NORMAL ACCOMODATION, PERRL - ENT Exam ENT Exam: Mucous Membranes Moist - Neck Exam Neck Exam: Full ROM, Normal Inspection. absent: Lymphadenopathy - Respiratory Exam Respiratory Exam: Clear to Ausculation Bilateral, NORMAL BREATHING PATTERN - Cardiovascular Exam Cardiovascular Exam: REGULAR RHYTHM, +S1, +S2. absent: Murmur - GI/Abdominal Exam GI & Abdominal Exam: Soft, Normal Bowel Sounds. absent: Tenderness - Extremities Exam Extremities Exam: Full ROM, Normal Capillary Refill, Normal Inspection. 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 Stage IV metastatic colon cancer with liver metastasis Recurrent ascites status post Aspira catheter Abdominal pain post Aspira catheter insertion Cholelithiasis with recent acute cholecystitis status managed conservatively with antibiotics GERD Hypertension Elevated liver enzymes On gentle hydration Encouraged to take oral fluids and Ensure supplements Pain management Zofran prn Continue Protonix 40 daily and Carafate On sodium low Trend LFTs, downward trend Total bilirubin shows slight downward trend. If LFTs uptrend, consider Abdominal US Seen and discussed with Dr. Turk. <Joi Turk V - Last Filed: 06/17/17 23:24> Objective - Vital Signs/Intake and Output Vital Signs (last 24 hours): Temp Pulse Resp BP Pulse Ox 98 F 101 H 19 115/69 98 06/17/17 16:00 06/17/17 16:00 06/17/17 16:00 06/17/17 16:00 06/17/17 16:00 Intake and Output: 06/17/17 06/18/17 18:59 06:59 Intake Total 120 Balance 120 - Medications Medications: Current Medications Alprazolam (Xanax) 0.25 mg PO Q8H [facility] PRN Reason: Protocol Stop: 06/21/17 16:01 Last Admin: 06/17/17 19:05 Dose: Not Given Dronabinol (Marinol) 2.5 mg PO DAILY [facility] Last Admin: 06/17/17 12:40 Dose: 2.5 mg Lisinopril (Zestril) 2.5 mg PO DAILY [facility] Last Admin: 06/12/17 10:56 Dose: 2.5 mg Morphine Sulfate (Morphine) 2 mg IVP Q4H PRN PRN Reason: Pain, severe (8-10) Last Admin: 06/17/17 23:04 Dose: 2 mg Ondansetron HCl (Zofran Inj) 4 mg IVP Q6H PRN PRN Reason: Nausea/Vomiting Last Admin: 06/17/17 12:53 Dose: 4 mg Oxycodone HCl (Oxycodone Immediate Release Tab) 5 mg PO Q4H PRN PRN Reason: Pain, moderate (4-7) Pantoprazole Sodium (Protonix Ec Tab) 40 mg PO DAILY [facility] Last Admin: 06/17/17 09:29 Dose: 40 mg Polyethylene Glycol (Miralax) 17 gm PO BID [facility] Last Admin: 06/17/17 19:05 Dose: Not Given Potassium Chloride (K-Dur 20 Meq Er Tab) 20 meq PO BRK [facility] Last Admin: 06/17/17 17:35 Dose: 20 meq Simethicone (Mylicon Liq) 80 mg PO QID PRN PRN Reason: Flatulence Last Admin: 06/14/17 17:02 Dose: 80 mg Sucralfate (Carafate Oral Susp) 1 gm PO BID [facility] Last Admin: 06/17/17 17:34 Dose: 1 gm Ursodiol (Actigall) 300 mg PO DAILY [facility] Last Admin: 06/17/17 09:29 Dose: 300 mg - Labs Labs: 06/17/17 06:20 06/17/17 06:20 PT 28.0 SECONDS (9.4-12.5) H 06/15/17 05:30 INR 2.41 (0.93-1.08) H 06/15/17 05:30 Attending/Attestation - Attestation I have personally seen and examined this patient.: Yes I have fully participated in the care of the patient.: Yes I have reviewed all pertinent clinical information, including history, physical exam and plan: Yes Notes (Text): This is an addendum to GI consult report dictated by the Lead Massage Therapist.The patient was seen and examined earlier. Medical records, lab studies, imagings were reviewed. Last 24 hours events reviewed. Agreed with the above treatment plan as outlined in Lead Massage Therapist 's notes the with the addition of the following Patient still has tenderness in right upper quadrant area chronic LFTs show slight downward trend of bilirubin Follow-up LFT Discussed with the patient at length 06/17/17 23:21
[2017-06-17] MEDS: Potassium Chloride 20 mEq ER Tab PO SCH (17:35)
--- NOTE | 2017-06-17 20:47 | PN ---
DATE: 06/17/2017 SUBJECTIVE: Patient is seen sitting in bed. She is awake, she is alert, she is comfortable. She reports feeling better. She reports less pain in her abdomen. PHYSICAL EXAMINATION: GENERAL: Thinly built, elderly lady, sitting in bed. VITAL SIGNS: Blood pressure 116/73, heart rate 97, respiratory rate 18, temperature 97.8. HEENT: Normocephalic, atraumatic. NECK: Supple, no JVD. LUNGS: Bilateral equal air entry. No rales. CARDIAC: S1, S2. Regular rate and rhythm. No murmur, no rub. ABDOMEN: Distended, soft, bowel sounds present, fluid thrill. EXTREMITIES: 1+ pitting edema of the lower extremities. INTAKE AND OUTPUT: Not charted. LABORATORY DATA: WBC 17.6, hemoglobin 11, hematocrit 34.5, platelets 134. Sodium 130, potassium 3.7, chloride 98, CO2 19, BUN 44, creatinine 1.1, glucose 109, calcium 6.7, albumin 2.7, corrected calcium is 7.7, phosphorus 2.8, magnesium 1.8. CURRENT MEDICATIONS: Actigall; Carafate; Marinol; MiraLax; morphine; Mylicon; oxycodone; Protonix; Xanax; Zestril 2.5, on hold; Zofran; normal saline at 60. ASSESSMENT: 1. Resolved acute kidney injury, largely prerenal azotemia. 2. Hyponatremia. 3. Hypokalemia. 4. Severe hypocalcemia. 5. Worsening liver function tests. 6. Metastatic colon cancer with liver metastasis. 7. History of hypertension. PLAN: 1. Discontinue IV fluids. 2. Replace calcium. 3. Replace potassium orally. 4. Monitor electrolytes. Valeria Dominguez MD
[2017-06-18] MEDS: Morphine 2 mg/ml ISec IVP PRN ×2 (05:15→23:00)
[2017-06-18 05:48] LABS: HEMOGLOBIN 11.4 g/dL (12.0-16.0); MEAN CELL VOLUME 84.4 fl (80.0-105.0); MEAN CORPUSCULAR HEMOGLOBIN 27.3 pg (25.0-35.0); MEAN CORPUSCULAR HGB CONC 32.4 g/dl (31.0-37.0); MEAN PLATELET VOLUME 9.5 fl (7.0-11.0); RBC 4.17 10^6/uL (3.5-6.1); RED CELL DISTRIBUTION WIDTH 19.9 % (11.5-14.5); WHITE BLOOD COUNT 19.8 10^3/ul (4.5-11.0)
[2017-06-18 06:01] LABS: INR 2.49 (0.93-1.08); PARTIAL THROMBOPLASTIN TIME 41.1 Seconds (25.1-36.5); PROTHROMBIN TIME 29.2 SECONDS (9.4-12.5)
[2017-06-18 06:09] LABS: ALB/GLOB RATIO 0.7 (1.1-1.8); ALBUMIN 2.7 g/dL (3.0-4.8); CALCIUM 6.8 mg/dL (8.4-10.5)
[2017-06-18] MEDS: Sucralfate 1 gm/10 ml Oral Susp UD PO SCH ×2 (09:07→17:32)
[2017-06-18] MEDS: Pantoprazole 40 mg EC Tab PO SCH (09:08)
[2017-06-18] MEDS: Potassium Chloride 20 mEq ER Tab PO SCH (09:08)
[2017-06-18] MEDS: POLYETHYLENE GLYCOL 3350 17 GM/Dose PACKET PO SCH ×2 (09:09→17:32)
--- NOTE | 2017-06-18 12:09 | CP.PCM.PN ---
Subjective - Date & Time of Evaluation Date of Evaluation: 06/18/17 Time of Evaluation: 07:20 - Subjective Subjective: Calvin Dill D.O. PGY-2, Internal Medicine Resident, Hem/Onc Progress Note 61 year old female with a PMH of Stage IV metastatic colon cancer with intraabdominal carcinomatosis and liver metastases who presents for pain, nausea after aspira cathter insertion. Patient was seen and evaluate this morning. Had some pain overnight over abdomen. Still not eating a whole lot. Still feeling weak. Objective - Vital Signs/Intake and Output Vital Signs (last 24 hours): Temp Pulse Resp BP Pulse Ox 98.1 F 103 H 18 100/55 L 97 06/18/17 08:34 06/18/17 08:34 06/18/17 08:34 06/18/17 08:34 06/18/17 08:34 Intake and Output: 06/18/17 06/18/17 06:59 18:59 Intake Total 120 Balance 120 - Medications Medications: Current Medications Alprazolam (Xanax) 0.25 mg PO Q8H [facility] PRN Reason: Protocol Stop: 06/21/17 16:01 Last Admin: 06/18/17 09:08 Dose: Not Given Docusate Sodium (Colace) 100 mg PO BID [facility] Last Admin: 06/18/17 10:18 Dose: 100 mg Dronabinol (Marinol) 2.5 mg PO DAILY [facility] Last Admin: 06/18/17 09:08 Dose: 2.5 mg Fentanyl (Duragesic) 1 patch TD Q72H [facility] Last Admin: 06/18/17 10:18 Dose: 1 patch Lisinopril (Zestril) 2.5 mg PO DAILY [facility] Last Admin: 06/12/17 10:56 Dose: 2.5 mg Morphine Sulfate (Morphine) 2 mg IVP Q4H PRN PRN Reason: Pain, severe (8-10) Last Admin: 06/18/17 05:15 Dose: 2 mg Ondansetron HCl (Zofran Inj) 4 mg IVP Q6H PRN PRN Reason: Nausea/Vomiting Last Admin: 06/17/17 12:53 Dose: 4 mg Oxycodone HCl (Oxycodone Immediate Release Tab) 5 mg PO Q4H PRN PRN Reason: Pain, moderate (4-7) Pantoprazole Sodium (Protonix Ec Tab) 40 mg PO DAILY [facility] Last Admin: 06/18/17 09:08 Dose: 40 mg Polyethylene Glycol (Miralax) 17 gm PO BID [facility] Last Admin: 06/18/17 09:09 Dose: Not Given Potassium Chloride (K-Dur 20 Meq Er Tab) 20 meq PO BRK [facility] Last Admin: 06/18/17 09:08 Dose: 20 meq Simethicone (Mylicon Liq) 80 mg PO QID PRN PRN Reason: Flatulence Last Admin: 06/14/17 17:02 Dose: 80 mg Sucralfate (Carafate Oral Susp) 1 gm PO BID [facility] Last Admin: 06/18/17 09:07 Dose: 1 gm Ursodiol (Actigall) 300 mg PO DAILY [facility] Last Admin: 06/18/17 09:08 Dose: 300 mg - Labs Labs: 06/18/17 05:20 06/18/17 05:20 PT 29.2 SECONDS (9.4-12.5) H 06/18/17 05:20 INR 2.49 (0.93-1.08) H 06/18/17 05:20 APTT 41.1 Seconds (25.1-36.5) H 06/18/17 05:20 - Constitutional Appears: No Acute Distress, Chronically Ill, Cachectic - Head Exam Head Exam: ATRAUMATIC, NORMOCEPHALIC - Eye Exam Eye Exam: EOMI, PERRL - ENT Exam ENT Exam: Mucous Membranes Moist - Neck Exam Neck Exam: Normal Inspection - Respiratory Exam Respiratory Exam: Clear to Ausculation Bilateral. absent: Rhonchi, Wheezes - Cardiovascular Exam Cardiovascular Exam: RRR, +S1, +S2 - GI/Abdominal Exam GI & Abdominal Exam: Distended, Aspira cathter in place with recently changed dressings C/D/I, Soft, Normal Bowel Sounds - Extremities Exam Extremities Exam: Pedal Edema (+1). absent: Tenderness - Neurological Exam Neurological Exam: Alert, Awake, CN II-XII Intact, Oriented x4 - Psychiatric Exam Psychiatric exam: Normal Affect, Normal Mood - Skin Skin Exam: Dry, Warm Assessment and Plan - Assessment and Plan (Free Text) Assessment: 61 year old female with a PMH of Stage IV metastatic colon cancer with intraabdominal carcinomatosis and liver metastases who presents for pain, nausea after aspira cathter insertion. Plan: Stave IV colorectal CA with abdominal carcinomatosis and liver metastases Ascites s/p aspira catheter and drainage x3 Worsening leukocytosis HTN Hyperbilirubinemia Transaminemia Hyponatremia Dehydration with associated OMAR Anorexia and cachexia Discussed with GI about increasing hyperbilirubinemia, likely 2/2 multiple liver mets, not a candidate for cholecystostomy given ascites Continue dronabinol, may need some more time to spike appetite, and continue supplements Continue pain control, increased fentanyl patch to 25 Continue carafate/protonix Continue PT/OT, encouraged OOB Drained another 1.5L of yellow peritoneal fluid at bedside using aspira cathter , sent for cell count/LDH/albumin/TP/glucose Once clinically improved possible HWS/EILEEN but at this time still guarded prognosis Discussed with attending physician
[2017-06-18 12:16] LABS: BODY FLUID TYPE PERITONEAL
--- NOTE | 2017-06-18 12:46 | CP.PCM.PN ---
Subjective - Date & Time of Evaluation Date of Evaluation: 06/18/17 Time of Evaluation: 13:00 - Subjective Subjective: Alert, weak. Denies pain, states since having paracentisis she is feeling better. Objective - Vital Signs/Intake and Output Vital Signs (last 24 hours): Temp Pulse Resp BP Pulse Ox 98.1 F 103 H 18 100/55 L 97 06/18/17 08:34 06/18/17 08:34 06/18/17 08:34 06/18/17 08:34 06/18/17 08:34 Intake and Output: 06/18/17 06/18/17 06:59 18:59 Intake Total 120 Balance 120 - Medications Medications: Current Medications Alprazolam (Xanax) 0.[address] [facility] PRN Reason: Protocol Stop: 06/21/17 16:01 Last Admin: 06/18/17 09:08 Dose: Not Given Docusate Sodium (Colace) [address] [facility] Last Admin: 06/18/17 10:18 Dose: 100 mg Dronabinol (Marinol) 2.[address] [facility] Last Admin: 06/18/17 09:08 Dose: 2.5 mg Fentanyl (Duragesic) [address] [facility] Last Admin: 06/18/17 10:18 Dose: 1 patch Lisinopril (Zestril) 2.[address] [facility] Last Admin: 06/12/17 10:56 Dose: 2.5 mg Morphine Sulfate (Morphine) 2 mg IVP Q4H PRN PRN Reason: Pain, severe (8-10) Last Admin: 06/18/17 05:15 Dose: 2 mg Ondansetron HCl (Zofran Inj) 4 mg IVP Q6H PRN PRN Reason: Nausea/Vomiting Last Admin: 06/17/17 12:53 Dose: 4 mg Oxycodone HCl (Oxycodone Immediate Release Tab) 5 mg PO Q4H PRN PRN Reason: Pain, moderate (4-7) Pantoprazole Sodium (Protonix Ec Tab) [address] [facility] Last Admin: 06/18/17 09:08 Dose: 40 mg Polyethylene Glycol (Miralax) [address] [facility] Last Admin: 06/18/17 09:09 Dose: Not Given Potassium Chloride (K-Dur 20 Meq Er Tab) [address] [facility] Last Admin: 06/18/17 09:08 Dose: 20 meq Simethicone (Mylicon Liq) 80 mg PO QID PRN PRN Reason: Flatulence Last Admin: 06/14/17 17:02 Dose: 80 mg Sucralfate (Carafate Oral Susp) [address] [facility] Last Admin: 06/18/17 09:07 Dose: 1 gm Ursodiol (Actigall) [address] [facility] Last Admin: 06/18/17 09:08 Dose: 300 mg - Labs Labs: 06/18/17 05:20 06/18/17 05:20 PT 29.2 SECONDS (9.4-12.5) H 06/18/17 05:20 INR 2.49 (0.93-1.08) H 06/18/17 05:20 APTT 41.1 Seconds (25.1-36.5) H 06/18/17 05:20 - Constitutional Appears: Cachectic, Chronically Ill - Head Exam Head Exam: NORMAL INSPECTION - Eye Exam Eye Exam: Normal appearance, PERRL Pupil Exam: NORMAL ACCOMODATION - ENT Exam ENT Exam: Mucous Membranes Moist, Normal Oropharynx - Respiratory Exam Respiratory Exam: Decreased Breath Sounds, NORMAL BREATHING PATTERN - Cardiovascular Exam Cardiovascular Exam: REGULAR RHYTHM, +S1, +S2 - GI/Abdominal Exam GI & Abdominal Exam: Distended, Soft, Normal Bowel Sounds - Extremities Exam Extremities Exam: Pedal Edema - Neurological Exam Neurological Exam: Alert, Oriented x3 - Skin Skin Exam: Dry, Pallor Assessment and Plan - Assessment and Plan (Free Text) Assessment: 61 year old female with history of colon cancer 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 Iris is alert, somewhat melancholy. Questioning whether her condition will ever improve or will continue to worsen. Question whether her chemo medication is causing her to be so fatigued. Explained that her cancer was very advanced and that it is likely she will have chronic pain/ascites and weakness.She states that she is willing to continue treatment if there is hope for some gain. She intends to discuss future options with Dr Pretty. Encouraged her to participate in activity which she enjoys doing . She states that she has nor desire to do anything right now. Resuscitation status remains full code. She has appointed her friend Norma Del RioFelix Taylor as medical/financial POA. Psychosocial support provided. Time spent in goals of care discussion 20 minutes Plan: Palliative support for psychosocial distress Goals of care
--- NOTE | 2017-06-18 13:34 | CP.PCM.PN ---
<Gina Ludwig - Last Filed: 06/18/17 13:30> Subjective - Date & Time of Evaluation Date of Evaluation: 06/18/17 Time of Evaluation: 09:00 - Subjective Subjective: Dr. Turk Progress Note Pt was seen and examined at bedside. Pt found to be resting comfortably. Pt states she continues to feel better today than yesterday. No acute or adverse events overnight as per nursing staff. Pt tolerating diet this morning and moving bladder regularly. She has not had a bm overnight. Pt's abdominal tenderness is improving as well. Pt denied fever, chills, shortness of breath, chest pains, vomiting, constipation, diarrhea, or urinary symptoms. Objective - Vital Signs/Intake and Output Vital Signs (last 24 hours): Temp Pulse Resp BP Pulse Ox 98.1 F 103 H 18 100/55 L 97 06/18/17 08:34 06/18/17 08:34 06/18/17 08:34 06/18/17 08:34 06/18/17 08:34 Intake and Output: 06/18/17 06/18/17 06:59 18:59 Intake Total 120 Balance 120 - Medications Medications: Current Medications Alprazolam (Xanax) 0.25 mg PO Q8H [facility] PRN Reason: Protocol Stop: 06/21/17 16:01 Last Admin: 06/18/17 09:08 Dose: Not Given Docusate Sodium (Colace) 100 mg PO BID [facility] Last Admin: 06/18/17 10:18 Dose: 100 mg Dronabinol (Marinol) 2.5 mg PO DAILY [facility] Last Admin: 06/18/17 09:08 Dose: 2.5 mg Fentanyl (Duragesic) 1 patch TD Q72H [facility] Last Admin: 06/18/17 10:18 Dose: 1 patch Lisinopril (Zestril) 2.5 mg PO DAILY [facility] Last Admin: 06/12/17 10:56 Dose: 2.5 mg Morphine Sulfate (Morphine) 2 mg IVP Q4H PRN PRN Reason: Pain, severe (8-10) Last Admin: 06/18/17 05:15 Dose: 2 mg Ondansetron HCl (Zofran Inj) 4 mg IVP Q6H PRN PRN Reason: Nausea/Vomiting Last Admin: 06/17/17 12:53 Dose: 4 mg Oxycodone HCl (Oxycodone Immediate Release Tab) 5 mg PO Q4H PRN PRN Reason: Pain, moderate (4-7) Pantoprazole Sodium (Protonix Ec Tab) 40 mg PO DAILY [facility] Last Admin: 06/18/17 09:08 Dose: 40 mg Polyethylene Glycol (Miralax) 17 gm PO BID [facility] Last Admin: 06/18/17 09:09 Dose: Not Given Potassium Chloride (K-Dur 20 Meq Er Tab) 20 meq PO BRK [facility] Last Admin: 06/18/17 09:08 Dose: 20 meq Simethicone (Mylicon Liq) 80 mg PO QID PRN PRN Reason: Flatulence Last Admin: 06/14/17 17:02 Dose: 80 mg Sucralfate (Carafate Oral Susp) 1 gm PO BID [facility] Last Admin: 06/18/17 09:07 Dose: 1 gm Ursodiol (Actigall) 300 mg PO DAILY [facility] Last Admin: 06/18/17 09:08 Dose: 300 mg - Labs Labs: 06/18/17 05:20 06/18/17 05:20 PT 29.2 SECONDS (9.4-12.5) H 06/18/17 05:20 INR 2.49 (0.93-1.08) H 06/18/17 05:20 APTT 41.1 Seconds (25.1-36.5) H 06/18/17 05:20 - Constitutional Appears: No Acute Distress, Cachectic - Head Exam Head Exam: ATRAUMATIC, NORMAL INSPECTION, NORMOCEPHALIC - Eye Exam Eye Exam: EOMI, Normal appearance, PERRL Pupil Exam: NORMAL ACCOMODATION, PERRL - ENT Exam ENT Exam: Mucous Membranes Moist, Normal Exam - Respiratory Exam Respiratory Exam: Clear to Ausculation Bilateral, NORMAL BREATHING PATTERN - Cardiovascular Exam Cardiovascular Exam: REGULAR RHYTHM, +S1, +S2. absent: Murmur - GI/Abdominal Exam GI & Abdominal Exam: Soft, Normal Bowel Sounds. absent: Tenderness - Extremities Exam Extremities Exam: Full ROM, Normal Capillary Refill, Normal Inspection. 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 Stage IV metastatic colon cancer with liver metastasis Recurrent ascites status post Aspira catheter Abdominal pain post Aspira catheter insertion Cholelithiasis with recent acute cholecystitis status managed conservatively with antibiotics GERD Hypertension Elevated liver enzymes On gentle hydration Encouraged to take oral fluids and Ensure supplements Pain management Zofran prn Continue Protonix 40 daily and Carafate On sodium low Trend LFTs, downward trend Total bilirubin shows slight upward trend. we will obtain Abdominal US for further assessment Seen and discussed with Dr. Turk. <Joi Turk V - Last Filed: 06/18/17 22:59> Objective - Vital Signs/Intake and Output Vital Signs (last 24 hours): Temp Pulse Resp BP Pulse Ox 97.8 F 96 H 19 104/62 99 06/18/17 16:00 06/18/17 16:00 06/18/17 16:00 06/18/17 16:00 06/18/17 16:00 - Medications Medications: Current Medications Alprazolam (Xanax) 0.25 mg PO Q8H [facility] PRN Reason: Protocol Stop: 06/21/17 16:01 Last Admin: 06/18/17 17:32 Dose: Not Given Docusate Sodium (Colace) 100 mg PO BID [facility] Last Admin: 06/18/17 17:31 Dose: 100 mg Dronabinol (Marinol) 2.5 mg PO DAILY [facility] Last Admin: 06/18/17 09:08 Dose: 2.5 mg Fentanyl (Duragesic) 1 patch TD Q72H [facility] Last Admin: 06/18/17 10:18 Dose: 1 patch Lisinopril (Zestril) 2.5 mg PO DAILY [facility] Last Admin: 06/12/17 10:56 Dose: 2.5 mg Morphine Sulfate (Morphine) 2 mg IVP Q4H PRN PRN Reason: Pain, severe (8-10) Last Admin: 06/18/17 05:15 Dose: 2 mg Ondansetron HCl (Zofran Inj) 4 mg IVP Q6H PRN PRN Reason: Nausea/Vomiting Last Admin: 06/17/17 12:53 Dose: 4 mg Oxycodone HCl (Oxycodone Immediate Release Tab) 5 mg PO Q4H PRN PRN Reason: Pain, moderate (4-7) Pantoprazole Sodium (Protonix Ec Tab) 40 mg PO DAILY [facility] Last Admin: 06/18/17 09:08 Dose: 40 mg Polyethylene Glycol (Miralax) 17 gm PO BID [facility] Last Admin: 06/18/17 17:32 Dose: Not Given Potassium Chloride (K-Dur 20 Meq Er Tab) 20 meq PO BRK [facility] Last Admin: 06/18/17 09:08 Dose: 20 meq Simethicone (Mylicon Liq) 80 mg PO QID PRN PRN Reason: Flatulence Last Admin: 06/14/17 17:02 Dose: 80 mg Sucralfate (Carafate Oral Susp) 1 gm PO BID [facility] Last Admin: 06/18/17 17:32 Dose: 1 gm Ursodiol (Actigall) 300 mg PO DAILY [facility] Last Admin: 06/18/17 09:08 Dose: 300 mg - Labs Labs: 06/18/17 05:20 06/18/17 05:20 PT 29.2 SECONDS (9.4-12.5) H 06/18/17 05:20 INR 2.49 (0.93-1.08) H 06/18/17 05:20 APTT 41.1 Seconds (25.1-36.5) H 06/18/17 05:20 Attending/Attestation - Attestation I have personally seen and examined this patient.: Yes I have fully participated in the care of the patient.: Yes I have reviewed all pertinent clinical information, including history, physical exam and plan: Yes Notes (Text): This is an addendum to GI consult report dictated by the [employer].The patient was seen and examined earlier. Medical records, lab studies, imagings were reviewed. Last 24 hours events reviewed. Agreed with the above treatment plan as outlined in Lining F[facility] 's notes the with the addition of the following 06/18/17 22:59
[2017-06-18 13:57] LABS: BF GROSS APPEARANCE CLEAR (CLEAR); BODY FLUID TOTAL COUNT 100 (0-0)
--- NOTE | 2017-06-18 18:32 | US ---
HISTORY: hyperbilirubinemia COMPARISON: None. TECHNIQUE: Sonographic evaluation of the right upper quadrant of the abdomen. FINDINGS: LIVER: Measures 18.0 cm in length. Abnormal inhomogeneous echogenicity of the liver parenchyma a somewhat nodular surface and local ascites potentially in indicating further worsening of metastatic disease identified in prior CT 04/28/2017. No obvious intrahepatic biliary dilatation appreciable. GALLBLADDER: Thickening gallbladder wall is appreciated as a function of hydrops related to ascites. No cholelithiasis identified grossly. COMMON BILE DUCT: Measures 2.6 mm. No stones. No dilatation. PANCREAS: Obscured by overlying bowel gas. RIGHT KIDNEY: Measures 12.2 cm in length. A midpole right renal cyst identified intrarenal measuring 2.1 x 2.0 x 2.2 cm. AORTA: Nonvisualized. IVC: Not visualized. OTHER FINDINGS: None . IMPRESSION: Residual ascites appreciated status post reportedly recent paracentesis with liver findings compatible with prior known liver metastasis, potentially increased in the interval since prior CT 04/28/2017. Gallbladder hydrops suggested. Pancreas not seen due to overlying bowel gas as well as aorta and inferior vena cava.
--- NOTE | 2017-06-18 19:57 | PN ---
DATE: 06/18/2017 SUBJECTIVE: Patient is seen sitting in chair. She is awake. She is alert. She is comfortable. She feels good today. She has paracentesis today. She has no abdominal pain at present. PHYSICAL EXAMINATION: GENERAL: Thinly-built, elderly lady, sitting in chair. VITAL SIGNS: Blood pressure 100/55, heart rate 103, respiratory rate 18, temperature 98.1. HEENT: Normocephalic, atraumatic. NECK: Supple, no JVD. LUNGS: Bilateral equal air entry, decreased breath sounds at bases. CARDIAC: S1, S2. Regular rate and rhythm. No murmur, no rub. ABDOMEN: Distended, soft, positive fluid thrill, bowel sounds present. EXTREMITIES: 2+ pitting edema of the lower extremities. INTAKE AND OUTPUT: Not charted. LABORATORY DATA: WBC 19.8, hemoglobin 11, hematocrit 35, platelets 132. Sodium 131, potassium 4.2, chloride 100, CO2 16, BUN 43, creatinine 1.3, glucose 117, calcium 6.8, albumin 2.7, corrected calcium 7.8. Peritoneal fluid wbc 645, rbc 115. CURRENT MEDICATIONS: Actigall; Carafate; Colace; Duragesic; potassium 20 mEq daily; Marinol; MiraLax; morphine; Mylicon; oxycodone; Protonix; Xanax; Zestril 2.5, on hold; Zofran; calcium gluconate 1 g given yesterday, 1 g given today. ASSESSMENT: 1. Acute kidney injury, creatinine is fluctuating with volume status. 2. Hypocalcemia. 3. Resolved hypokalemia. 4. Hyponatremia. 5. Metastatic colon cancer with liver metastasis. 6. Elevated liver function tests. 7. Leukocytosis. PLAN: 1. Check peritoneal fluid cultures, need to consider subacute bacterial peritonitis in the differential diagnosis for leukocytosis. 2. Continue to hold diuretics. 3. Monitor electrolytes closely. 4. Agree with calcium supplementation. Valeria Dominguez MD
[2017-06-19] MEDS: Morphine 2 mg/ml ISec IVP PRN ×2 (04:37→14:44)
[2017-06-19 06:10] LABS: BASO # 0.03 K/mm3 (0.0-2.0); BASO % 0.2 % (0.0-3.0); EOS # 0.1 (0.0-0.7); EOS % 0.6 % (1.5-5.0); GRAN # 13.69 (1.4-6.5); GRAN % 79.9 % (50.0-68.0); HEMOGLOBIN 11.3 g/dL (12.0-16.0); LYMPH # 0.7 (1.2-3.4); LYMPH % 4.2 % (22.0-35.0); MEAN CELL VOLUME 84.5 fl (80.0-105.0); MEAN CORPUSCULAR HEMOGLOBIN 27.4 pg (25.0-35.0); MEAN CORPUSCULAR HGB CONC 32.4 g/dl (31.0-37.0); MEAN PLATELET VOLUME 9.8 fl (7.0-11.0); MONO # 2.6 (0.1-0.6); MONO % 15.1 % (1.0-6.0); PLATELET COUNT 125 10^3/uL (120.0-450.0); RBC 4.13 10^6/uL (3.5-6.1); RED CELL DISTRIBUTION WIDTH 20.1 % (11.5-14.5); WHITE BLOOD COUNT 17.1 10^3/ul (4.5-11.0)
[2017-06-19 06:20] LABS: INR 2.62 (0.93-1.08); PARTIAL THROMBOPLASTIN TIME 43.1 Seconds (25.1-36.5); PROTHROMBIN TIME 30.7 SECONDS (9.4-12.5)
[2017-06-19 06:48] LABS: ALB/GLOB RATIO 0.7 (1.1-1.8); ALBUMIN 2.7 g/dL (3.0-4.8); CALCIUM 7.1 mg/dL (8.4-10.5)
[2017-06-19] MEDS: Potassium Chloride 20 mEq ER Tab PO SCH (09:00)
[2017-06-19 09:03] LABS: LYMPHOCYTE 10 % (22.0-35.0); MONOCYTE 7 % (1.0-6.0); NEUTROPHIL 83 % (50.0-70.0)
[2017-06-19 09:04] LABS: ANISOCYTOSIS SLIGHT; HYPOCHROMIA SLIGHT; PLATELET ESTIMATE SL. DEC. (NORMAL)
[2017-06-19] MEDS ORDERED: Vancomycin 1gm in NS 250ml 1 GM/250 ML BAG IVPB STA (09:14)
[2017-06-19] MEDS: Sucralfate 1 gm/10 ml Oral Susp UD PO SCH ×2 (10:14→17:29)
[2017-06-19] MEDS: Pantoprazole 40 mg EC Tab PO SCH (10:14)
[2017-06-19] MEDS: POLYETHYLENE GLYCOL 3350 17 GM/Dose PACKET PO SCH ×2 (10:20→17:29)
[2017-06-19] MEDS: Piperacillin/Tazobact 3.375 gm 100 ML IVPB SCH ×2 (12:58→20:18)
--- NOTE | 2017-06-19 13:53 | CP.PCM.PN ---
<aCthi Meade - Last Filed: 06/19/17 13:52> Subjective - Date & Time of Evaluation Date of Evaluation: 06/19/17 Time of Evaluation: 11:00 - Subjective Subjective: S&E at bedside, chart reviewed, report gas, had BM yesterday, no diarrhea. Vomited earlier today. No reports of overt GI bleeding. GB US done yesterday, report BG hydrops, CBD 2.6 , no GB stones, (+) thick GB, no CBD stone or dilation. Does have right sided pain, a little better today. Objective - Vital Signs/Intake and Output Vital Signs (last 24 hours): Temp Pulse Resp BP Pulse Ox 101 F H 90 18 95/55 L 97 06/19/17 08:41 06/19/17 08:41 06/19/17 08:41 06/19/17 08:41 06/19/17 08:41 Intake and Output: 06/19/17 06/19/17 06:59 18:59 Intake Total 180 0 Balance 180 0 - Medications Medications: Current Medications Alprazolam (Xanax) 0.25 mg PO Q8H [facility] PRN Reason: Protocol Stop: 06/21/17 16:01 Last Admin: 06/19/17 10:21 Dose: 0.25 mg Docusate Sodium (Colace) 100 mg PO BID [facility] Last Admin: 06/19/17 10:21 Dose: 100 mg Dronabinol (Marinol) 2.5 mg PO DAILY [facility] Last Admin: 06/19/17 10:21 Dose: 2.5 mg Fentanyl (Duragesic) 1 patch TD Q72H [facility] Last Admin: 06/18/17 10:18 Dose: 1 patch Piperacillin Sod/Tazobactam Sod (Zosyn 3.375 In Ns 100ml) 100 mls @ 200 mls/hr IVPB Q6 [facility] PRN Reason: Protocol Stop: 06/26/17 12:01 Last Admin: 06/19/17 12:58 Dose: 200 mls/hr Lisinopril (Zestril) 2.5 mg PO DAILY [facility] Last Admin: 06/12/17 10:56 Dose: 2.5 mg Megestrol Acetate (Megace) 200 mg PO DAILY [facility] Stop: 06/19/17 14:01 Megestrol Acetate (Megace) 200 mg PO DAILY [facility] Stop: 06/22/17 05:00 Morphine Sulfate (Morphine) 2 mg IVP Q4H PRN PRN Reason: Pain, severe (8-10) Last Admin: 06/19/17 04:37 Dose: 2 mg Ondansetron HCl (Zofran Inj) 4 mg IVP Q6H PRN PRN Reason: Nausea/Vomiting Last Admin: 06/19/17 10:15 Dose: 4 mg Oxycodone HCl (Oxycodone Immediate Release Tab) 5 mg PO Q4H PRN PRN Reason: Pain, moderate (4-7) Pantoprazole Sodium (Protonix Ec Tab) 40 mg PO DAILY [facility] Last Admin: 06/19/17 10:14 Dose: 40 mg Polyethylene Glycol (Miralax) 17 gm PO BID [facility] Last Admin: 06/19/17 10:20 Dose: 17 gm Potassium Chloride (K-Dur 20 Meq Er Tab) 20 meq PO BRK [facility] Last Admin: 06/19/17 09:00 Dose: 20 meq Simethicone (Mylicon Liq) 80 mg PO QID PRN PRN Reason: Flatulence Last Admin: 06/14/17 17:02 Dose: 80 mg Sucralfate (Carafate Oral Susp) 1 gm PO BID [facility] Last Admin: 06/19/17 10:14 Dose: 1 gm Ursodiol (Actigall) 300 mg PO DAILY [facility] Last Admin: 06/19/17 10:20 Dose: 300 mg - Labs Labs: 06/19/17 05:30 06/19/17 05:30 PT 30.7 SECONDS (9.4-12.5) H 06/19/17 05:30 INR 2.62 (0.93-1.08) H 06/19/17 05:30 APTT 43.1 Seconds (25.1-36.5) H 06/19/17 05:30 - Constitutional Appears: No Acute Distress - Head Exam Head Exam: NORMOCEPHALIC - Eye Exam Eye Exam: Scleral icterus - ENT Exam ENT Exam: Mucous Membranes Moist - Neck Exam Neck Exam: Normal Inspection - Respiratory Exam Respiratory Exam: NORMAL BREATHING PATTERN. absent: Respiratory Distress - Cardiovascular Exam Cardiovascular Exam: +S1, +S2 - GI/Abdominal Exam GI & Abdominal Exam: Distended, Soft, Tenderness (right sided tenderness), Normal Bowel Sounds. absent: Guarding, Rebound - Extremities Exam Extremities Exam: Pedal Edema. absent: Calf Tenderness - Neurological Exam Neurological Exam: Alert, Awake, Oriented x3 Assessment and Plan - Assessment and Plan (Free Text) Assessment: Assessment: Stage IV metastatic colon cancer with liver metastasis Recurrent ascites status post Aspira catheter Abdominal pain post Aspira catheter insertion Cholelithiasis with recent acute cholecystitis status managed conservatively with antibiotics GERD Hypertension Elevated liver enzymes PLAN: diet as tolerated, spoke to telegraph plant maintainer Hortencia regarding pt. request some food puree like chicken Encouraged to take oral fluids and Ensure supplements Pain management on Colace Zofran prn Continue Protonix 40 daily and Carafate Trend LFTs to start Megace oncology FU Seen and discussed with Dr. Turk. <Joi Turk V - Last Filed: 06/19/17 22:30> Objective - Vital Signs/Intake and Output Vital Signs (last 24 hours): Temp Pulse Resp BP Pulse Ox 97.6 F 96 H 18 101/66 97 06/19/17 20:26 06/19/17 20:26 06/19/17 20:26 06/19/17 20:26 06/19/17 20:26 Intake and Output: 06/19/17 06/20/17 18:59 06:59 Intake Total 720 480 Balance 720 480 - Medications Medications: Current Medications Alprazolam (Xanax) 0.25 mg PO Q8H [facility] PRN Reason: Protocol Stop: 06/21/17 16:01 Last Admin: 06/19/17 17:28 Dose: 0.25 mg Docusate Sodium (Colace) 100 mg PO BID [facility] Last Admin: 06/19/17 17:30 Dose: Not Given Dronabinol (Marinol) 2.5 mg PO DAILY [facility] Last Admin: 06/19/17 10:21 Dose: 2.5 mg Fentanyl (Duragesic) 1 patch TD Q72H [facility] Last Admin: 06/18/17 10:18 Dose: 1 patch Piperacillin Sod/Tazobactam Sod (Zosyn 3.375 In Ns 100ml) 100 mls @ 200 mls/hr IVPB Q6 [facility] PRN Reason: Protocol Stop: 06/26/17 12:01 Last Admin: 06/19/17 20:18 Dose: Not Given Lisinopril (Zestril) 2.5 mg PO DAILY [facility] Last Admin: 06/12/17 10:56 Dose: 2.5 mg Megestrol Acetate (Megace) 200 mg PO DAILY [facility] Stop: 06/22/17 05:00 Morphine Sulfate (Morphine) 2 mg IVP Q4H PRN PRN Reason: Pain, severe (8-10) Last Admin: 06/19/17 14:44 Dose: 2 mg Ondansetron HCl (Zofran Inj) 4 mg IVP Q6H PRN PRN Reason: Nausea/Vomiting Last Admin: 06/19/17 14:41 Dose: 4 mg Oxycodone HCl (Oxycodone Immediate Release Tab) 5 mg PO Q4H PRN PRN Reason: Pain, moderate (4-7) Pantoprazole Sodium (Protonix Ec Tab) 40 mg PO DAILY [facility] Last Admin: 06/19/17 10:14 Dose: 40 mg Polyethylene Glycol (Miralax) 17 gm PO BID [facility] Last Admin: 06/19/17 17:29 Dose: 17 gm Potassium Chloride (K-Dur 20 Meq Er Tab) 20 meq PO BRK [facility] Last Admin: 06/19/17 09:00 Dose: 20 meq Simethicone (Mylicon Liq) 80 mg PO QID PRN PRN Reason: Flatulence Last Admin: 06/14/17 17:02 Dose: 80 mg Sucralfate (Carafate Oral Susp) 1 gm PO BID [facility] Last Admin: 06/19/17 17:29 Dose: 1 gm Ursodiol (Actigall) 300 mg PO DAILY [facility] Last Admin: 06/19/17 10:20 Dose: 300 mg - Labs Labs: 06/19/17 05:30 06/19/17 05:30 PT 30.7 SECONDS (9.4-12.5) H 06/19/17 05:30 INR 2.62 (0.93-1.08) H 06/19/17 05:30 APTT 43.1 Seconds (25.1-36.5) H 06/19/17 05:30 Attending/Attestation - Attestation I have personally seen and examined this patient.: Yes I have fully participated in the care of the patient.: Yes I have reviewed all pertinent clinical information, including history, physical exam and plan: Yes Notes (Text): This is an addendum to GI progress report dictated by Cathi Meade APN.The patient was seen and examined earlier. Medical records, lab studies, imagings were reviewed. Last 24 hours events reviewed. Agreed with the above treatment plan as outlined in Cathi Meade APN's notes the with the addition of the following 06/19/17 22:29
[2017-06-19] MEDS ORDERED: Megestrol Acetate 40 mg/ml Cup PO SCH (14:00)
--- NOTE | 2017-06-19 18:58 | CP.PCM.CON ---
History of Present Illness - History of Present Illness History of Present Illness: 61 year old female with PMH of colonic malignancy with liver metastases, endometriosis, uterine fibroids S/P removal, S/P cholecystitis initially came in to [facility] because of abdominal pain after an aspiration catheter was placed in her abdomen. She developed fever this morning and she continues to have leukocytosis and Infectious Diseases consult is requested to evaluate. The patient is still complaining of occasional abdominal pain but did not notice that she had fever. She denies chills, no nausea or vomiting currently, no diarrhea, no SOB, no cough or colds, no pain along her port area on her chest, no sore throat, dysphagia. Review of Systems - Review of Systems All systems: reviewed and no additional remarkable complaints except (as per HPI ) Past Patient History - Infectious Disease Hx of Infectious Diseases: None - Tetanus Immunizations Tetanus Immunization: Unknown - Past Medical History & Family History Past Medical History?: Yes - Past Social History Smoking Status: Never Smoked - CARDIAC Hx Cardiac Disorders: Yes Hx Hypertension: Yes Hx Pacemaker: No - PULMONARY Hx Respiratory Disorders: No - NEUROLOGICAL Hx Neurological Disorder: No - HEENT Hx HEENT Problems: No - RENAL Hx Chronic Kidney Disease: Yes Hx Kidney Stones: Yes - ENDOCRINE/METABOLIC Hx Endocrine Disorders: No - HEMATOLOGICAL/ONCOLOGICAL Hx Blood Disorders: Yes Hx Anemia: Yes (blood transfusion) Hx Cancer: Yes (colon CA) Hx Chemotherapy: Yes Hx Metastesis: Yes (liver) - INTEGUMENTARY Hx Dermatological Problems: No - MUSCULOSKELETAL/RHEUMATOLOGICAL Hx Musculoskeletal Disorders: No Hx Falls: No - GASTROINTESTINAL Hx Gastrointestinal Disorders: Yes (colon ca) Other/Comment: liver/colon ca on chemo. HX BLOOD TRANSFUSION - GENITOURINARY/GYNECOLOGICAL Hx Genitourinary Disorders: Yes Other/Comment: fibroids, endometriosis - PSYCHIATRIC Hx Psychophysiologic Disorder: No Hx Emotional Abuse: No Hx Physical Abuse: No Hx Substance Use: No - SURGICAL HISTORY Hx Surgeries: Yes Other/Comment: laparotomy for uterine fibroid resectionR chest port placedR chest port placed - ANESTHESIA Hx Anesthesia Reactions: No Hx Malignant Hyperthermia: No Meds Allergies/Adverse Reactions: Allergies Allergy/AdvReac Type Severity Reaction Status Date / Time montano Allergy Intermediate URTICARIA Uncoded 06/11/17 19:18 - Medications Medications: Current Medications Alprazolam (Xanax) 0.25 mg PO Q8H [facility] PRN Reason: Protocol Stop: 06/21/17 16:01 Last Admin: 06/19/17 01:52 Dose: Not Given Docusate Sodium (Colace) 100 mg PO BID [facility] Last Admin: 06/18/17 17:31 Dose: 100 mg Dronabinol (Marinol) 2.5 mg PO DAILY [facility] Last Admin: 06/18/17 09:08 Dose: 2.5 mg Fentanyl (Duragesic) 1 patch TD Q72H [facility] Last Admin: 06/18/17 10:18 Dose: 1 patch Vancomycin HCl (Vancomycin 1gm) 1 gm in 250 mls @ 167 mls/hr IVPB STAT STA PRN Reason: Protocol Stop: 06/19/17 10:43 Piperacillin Sod/Tazobactam Sod (Zosyn 3.375 In Ns 100ml) 100 mls @ 200 mls/hr IVPB Q6 [facility] PRN Reason: Protocol Stop: 06/26/17 12:01 Lisinopril (Zestril) 2.5 mg PO DAILY [facility] Last Admin: 06/12/17 10:56 Dose: 2.5 mg Morphine Sulfate (Morphine) 2 mg IVP Q4H PRN PRN Reason: Pain, severe (8-10) Last Admin: 06/19/17 04:37 Dose: 2 mg Ondansetron HCl (Zofran Inj) 4 mg IVP Q6H PRN PRN Reason: Nausea/Vomiting Last Admin: 06/19/17 04:41 Dose: 4 mg Oxycodone HCl (Oxycodone Immediate Release Tab) 5 mg PO Q4H PRN PRN Reason: Pain, moderate (4-7) Pantoprazole Sodium (Protonix Ec Tab) 40 mg PO DAILY [facility] Last Admin: 06/18/17 09:08 Dose: 40 mg Polyethylene Glycol (Miralax) 17 gm PO BID [facility] Last Admin: 06/18/17 17:32 Dose: Not Given Potassium Chloride (K-Dur 20 Meq Er Tab) 20 meq PO BRK [facility] Last Admin: 06/18/17 09:08 Dose: 20 meq Simethicone (Mylicon Liq) 80 mg PO QID PRN PRN Reason: Flatulence Last Admin: 06/14/17 17:02 Dose: 80 mg Sucralfate (Carafate Oral Susp) 1 gm PO BID [facility] Last Admin: 06/18/17 17:32 Dose: 1 gm Ursodiol (Actigall) 300 mg PO DAILY [facility] Last Admin: 06/18/17 09:08 Dose: 300 mg Physical Exam - Constitutional Appears: Chronically Ill - Head Exam Head Exam: NORMAL INSPECTION - Respiratory Exam Respiratory Exam: Decreased Breath Sounds Additional comments: right anterior chest wall port site clean and intact - Cardiovascular Exam Cardiovascular Exam: +S1, +S2 - GI/Abdominal Exam GI & Abdominal Exam: Soft. absent: Tenderness Results - Vital Signs Recent Vital Signs: Last Vital Signs Temp 101 F H 06/19/17 08:41 Pulse 90 06/19/17 08:41 Resp 18 06/19/17 08:41 BP 95/55 L 06/19/17 08:41 Pulse Ox 97 06/19/17 08:41 - Labs Result Diagrams: 06/19/17 05:30 06/19/17 05:30 Labs: Laboratory Results - last 24 hr 06/18/17 06/18/17 06/19/17 06:00 12:15 05:30 WBC 17.1 H RBC 4.13 Hgb 11.3 L Hct 34.9 L MCV 84.5 MCH 27.4 MCHC 32.4 RDW 20.1 H Plt Count 125 MPV 9.8 Gran % 79.9 H Lymph % (Auto) 4.2 L Haywood % (Auto) 15.1 H Eos % (Auto) 0.6 L Baso % (Auto) 0.2 Gran # 13.69 H Lymph # (Auto) 0.7 L Haywood # (Auto) 2.6 H Eos # (Auto) 0.1 Baso # (Auto) 0.03 Neutrophils % (Manual) 83 H Lymphocytes % (Manual) 10 L Monocytes % (Manual) 7 H Platelet Evaluation Sl. dec. Hypochromasia Slight Anisocytosis (manual) Slight PT INR APTT Sodium Potassium Chloride Carbon Dioxide Anion Gap BUN Creatinine Est GFR ( Amer) Est GFR (Non-Af Amer) Random Glucose Calcium Phosphorus Magnesium Total Bilirubin AST ALT Alkaline Phosphatase Total Protein Albumin Globulin Albumin/Globulin Ratio Procalcitonin 1.76 H Fluid Source Peritoneal Fluid Appearance Clear Fluid WBC 645.0 H Fluid RBC 115.0 H Fluid Tot Cell Count 100 H Fluid Neutrophils 34.0 H Fluid Lymphocytes 66.0 H Fld Monocyte/Macrophag TEST NOT PERFORMED Fluid Comment Yellow 06/19/17 06/19/17 05:30 05:30 WBC RBC Hgb Hct MCV MCH MCHC RDW Plt Count MPV Gran % Lymph % (Auto) Haywood % (Auto) Eos % (Auto) Baso % (Auto) Gran # Lymph # (Auto) Haywood # (Auto) Eos # (Auto) Baso # (Auto) Neutrophils % (Manual) Lymphocytes % (Manual) Monocytes % (Manual) Platelet Evaluation Hypochromasia Anisocytosis (manual) PT 30.7 H INR 2.62 H APTT 43.1 H Sodium 130 L Potassium 4.7 Chloride 101 Carbon Dioxide 17 L Anion Gap 17 BUN 50 H Creatinine 1.7 H Est GFR ( Amer) 37 Est GFR (Non-Af Amer) 31 Random Glucose 94 Calcium 7.1 L Phosphorus 3.8 Magnesium 1.9 Total Bilirubin 9.5 H AST 121 H ALT 34 Alkaline Phosphatase 579 H Total Protein 6.6 Albumin 2.7 L Globulin 4.0 Albumin/Globulin Ratio 0.7 L Procalcitonin Fluid Source Fluid Appearance Fluid WBC Fluid RBC Fluid Tot Cell Count Fluid Neutrophils Fluid Lymphocytes Fld Monocyte/Macrophag Fluid Comment Assessment & Plan - Assessment and Plan (Free Text) Plan: Assessment Systemic inflammatory response syndrome, consider due to malignancy, R/O sepsis from SBP S/P drainage via abdominal catheter history of acute cholecystitis, S/P conservative therapy with antibiotics colonic malignancy with liver metastases with ascites S/P paracentesis endometriosis uterine fibroids S/P removal Plan started patient on a dose of IV Vancomycin and Zosyn pending blood cx, urine cx , ascitic fluid cx and analysis overall prognosis is poor
--- NOTE | 2017-06-19 19:05 | PN ---
DATE: 06/19/2017 SUBJECTIVE: Patient is seen sitting in bed. She is awake. She is alert. She complains of some chills. PHYSICAL EXAMINATION: GENERAL: Elderly lady, sitting in bed. VITAL SIGNS: Blood pressure of 95/55, heart rate 90, respiratory rate 18, temperature 101. HEENT: Normocephalic, atraumatic, positive pallor. NECK: Supple, no JVD. LUNGS: Bilateral equal air entry, bilateral equal expansion. CARDIAC: S1 and S2. Regular rate and rhythm. No murmur, no rub. ABDOMEN: Distended, soft, bowel sounds present. EXTREMITIES: No lower extremity edema. INTAKE AND OUTPUT: Not charted. LABORATORY DATA: WBC 17, hemoglobin 11, hematocrit 35, platelets 125. Sodium 130, potassium 4.7, chloride 101, CO2 17, BUN 50, creatinine 1.7, glucose 94, calcium 7.1, phosphorus 3.8, magnesium 1.9, albumin 2.7, corrected calcium is 8.1, procalcitonin 1.76. Blood cultures, no growth so far. Peritoneal cultures, no growth so far. Ultrasound of the gallbladder, liver 18 cm, abnormal, inhomogeneous echogenicity, thickening gallbladder wall. CURRENT MEDICATIONS: Actigall, Carafate, Colace, Duragesic, potassium 20 mEq daily, Marinol, Megace, MiraLax, morphine, Mylicon, Zestril, Zofran, Zosyn 3.375 q. 6. ASSESSMENT: 1. New fever, leukocytosis, ?subacute bacterial peritonitis. 2. Acute kidney injury, worsening renal function once again, likely related to impending sepsis. 3. History of hypertension. 4. Colon cancer with liver metastasis. 5. Recurrent ascites. PLAN: 1. Continue to hold PAKO inhibitor. 2. Agree with antibiotics. 3. Dose antibiotics for creatinine clearance about 30 mL/minute. 4. Followup cultures. 5. Continue to hold diuretics. Valeria Dominguez MD
[2017-06-20] MEDS: Piperacillin/Tazobact 3.375 gm 100 ML IVPB SCH ×5 (01:00→23:39)
--- NOTE | 2017-06-20 03:47 | PN ---
DATE: ONCOLOGY PROGRESS NOTE LOCATION: Patient is in room 364, bed 2. SUBJECTIVE: Patient is sitting in bed. She is awake, alert, appears very weak, complains of chills. Absolutely, no appetite. Some heart burn. Apparently, she threw up some of the Ensure she attempted to drink last night. Patient's appetite, as I mentioned, is zero to nil and she feels very weak. Denies any significant pain though she has right upper abdominal discomfort. Patient has been moving her bowels and the bowel movements have been occurring every other day. PHYSICAL EXAMINATION: GENERAL: Patient appears to be relatively comfortable on a pain scale of 0 to 10. She tells me her pain is a 3/10. VITAL SIGNS: Stable. Blood pressure is 95/55, heart rate is 90, respirations 18, T-max is 101. Temporal muscle wasting is noted. HEENT: Conjunctivae pale. Sclerae is icteric. Examination of the oropharynx reveals no ulcerations. Tongue is coated and dry. No evidence of any fungal infection noted. NECK: Supple. There is no adenopathy. No jugular venous distention noted. LUNGS: Reveal relatively clear to percussion and auscultation. Decreased breath sounds on both bases. HEART: Reveals PMI to be in the fifth intercostal space inside the midclavicular line. S1 and S2 are normal. No gallop or murmur is heard. ABDOMEN: Mildly distended. Patient has an Aspira drainage catheter. Catheter in the right upper quadrant. She has some tenderness over the right upper quadrant. Ascites is demonstrable. Right upper lobe of the abdomen reveals an enlarged liver, which is slightly tender. Bowel sounds are present. No rebound, rigidity, or guarding is noted. EXTREMITIES: Reveal significant reduction of the lower extremity edema. Peripheral pulses are palpable. GENITOURINARY AND RECTAL: Deferred. NEUROLOGIC: Patient is awake, alert. No focal deficits are noted. Patient does not have any signs of hepatic tremor. LABORATORY DATA: From today reveals a white count of 17, hemoglobin 11, hematocrit 35, platelet count of 125,000. Sodium is 130, K is 4.7, chloride is 101, CO2 is 17, BUN at 30, creatinine 1.7, glucose is 94, calcium is 7.1, phosphorus 3.8, magnesium 1.9, albumin 2.7, corrected calcium is 8.1, procalcitonin is 1.76. Blood cultures showed no growth. Peritoneal cultures, no growth thus far. Total bilirubin is still consistently elevated, at this time around 7.6. AST is elevated, which has come down from 3 days ago; ALT is within normal limits. Ultrasound of the gallbladder reveals heterogeneous changes in the liver, more consistent with the elevated total bilirubin being related to intrahepatic cholestatic jaundice probably related to combination of progressive disease in the liver along with the reflection of side effects from the Stivarga medicine that she had been getting. CURRENT MEDICATIONS: Reviewed. Patient is on Actigall, Carafate, Colace, Duragesic 25 mcg, which is ____, potassium 20 mEq daily, Marinol , Megace, MiraLax, morphine, Mylicon, Zestril, Zofran, and Zosyn. ASSESSMENT NOTES AND PLAN: Detailed discussion with the patient regarding her findings, increasing jaundice, which appears to be cholestatic with a combination of progression of disease in the liver plus effects of the chemotherapeutic drug, multikinase inhibitor and VEGF inhibitor, Stivarga, which she was given eight days in a row, which is currently on hold. New fever, leukocytosis, could this be a reflection again of progressive disease or spontaneous peritonitis. The cultures are pending and the patient is on antibiotic. Acute kidney injury, worsening renal function, combination of both intravascular depletion and probably reflection of the kidney dysfunction related to liver dysfunction, history of hypertension, stage IV metastatic colorectal carcinoma with progressive deterioration along with no findings of worsening cholestatic jaundice. Temperatures could be related to underlying malignancy versus coexisting evolving infection. PLAN: I had long detailed discussion with the patient. I explained to her all the current findings that the patient has including lab data, which I printed out and gave a copy of it to her. It looks like there are very few options at this point in time. Patient has had significant variations in her treatment as far as her metastatic cancer is concerned. She [id number] treatments for her liver metastasis. She was on systemic chemotherapy with FOLFOX-6, followed by Stivarga. I told her that if her blood counts are stabilized as the AST and ALT are relatively unchanged, we may probably want to start her back on Stivarga at a max lower dose of 80 mg a day and see which direction we are heading and also we would like to have a meeting with her healthcare proxy and her brother to discuss with them the current situation of what the patient is going through. Options for hospice may also have to be restored at this point since we are having progressive disease. Patient lives by herself, so these are other questions that have to be answered as to what can be done for her in a home situation or where does she go if we plan to choose comfort measures alone. Patient has been talking to our palliative care nurse as well and we are trying to make a decision that is satisfactory to the patient and makes a meaningful conclusion as to what should be done and what is most appropriate under these circumstances. Time spent with the patient is greater than 80 minutes; out of which 50% of the time was spent in atec-io-icem contact with the patient. Please make a note this is a medically necessary and appropriate visit for this patient. Labs for a.m. have been requested. Patient is going to get two units of FFP today in order to, 1. Increase the intravascular volume and, 2. To correct the INR, which has been as high as 2.74, again reflective of poor oral intake and worsening liver dysfunction. Thalia Pretty MD
[2017-06-20] MEDS: Morphine 2 mg/ml ISec IVP PRN ×3 (06:35→22:58)
[2017-06-20] MEDS: Potassium Chloride 20 mEq ER Tab PO SCH (08:02)
[2017-06-20 09:37] LABS: BASO # 0.01 K/mm3 (0.0-2.0); BASO % 0.1 % (0.0-3.0); GRAN # 14.83 (1.4-6.5); GRAN % 84.4 % (50.0-68.0); HEMOGLOBIN 10.5 g/dL (12.0-16.0); LYMPH # 0.9 (1.2-3.4); LYMPH % 4.9 % (22.0-35.0); MEAN CELL VOLUME 85.2 fl (80.0-105.0); MEAN CORPUSCULAR HEMOGLOBIN 27.7 pg (25.0-35.0); MEAN CORPUSCULAR HGB CONC 32.5 g/dl (31.0-37.0); MONO # 1.9 (0.1-0.6); MONO % 10.6 % (1.0-6.0); RBC 3.79 10^6/uL (3.5-6.1); WHITE BLOOD COUNT 17.6 10^3/ul (4.5-11.0)
[2017-06-20 09:46] LABS: ALB/GLOB RATIO 0.7 (1.1-1.8); ALBUMIN 2.9 g/dL (3.0-4.8); CALCIUM 6.9 mg/dL (8.4-10.5)
[2017-06-20] MEDS: Sucralfate 1 gm/10 ml Oral Susp UD PO SCH ×2 (10:56→17:41)
[2017-06-20] MEDS: Pantoprazole 40 mg EC Tab PO SCH (10:56)
[2017-06-20] MEDS: Megestrol Acetate 40 mg/ml Cup PO SCH (10:56)
[2017-06-20] MEDS: POLYETHYLENE GLYCOL 3350 17 GM/Dose PACKET PO SCH ×2 (10:59→17:41)
--- NOTE | 2017-06-20 15:05 | PN ---
DATE: 06/20/2017 SUBJECTIVE: The patient is seen sitting in bed. She is awake. She is alert. She reports that she vomited last night. She complains of pain in her abdomen, which is 3/10. She denies any nausea or vomiting today. She denies any diarrhea. PHYSICAL EXAMINATION: GENERAL: Cachectic-appearing elderly lady sitting in bed. VITAL SIGNS: Blood pressure 107/65, heart rate 92, respiratory rate 18, and temperature 97.5. HEENT: Normocephalic, atraumatic, positive pallor. NECK: Supple, no JVD. LUNGS: Bilateral equal air entry, bilateral equal expansion, decreased breath sounds at bases. CARDIAC: S1 and S2, regular rate and rhythm, no murmur, no rub. ABDOMEN: Distended, soft, positive fluid thrill, bowel sounds present, right-sided catheter. EXTREMITIES: 2+ pitting edema. INTAKE AND OUTPUT: 1200/not charted. LABORATORY DATA: WBC 17.6, hemoglobin 10.5, hematocrit 32, and platelets 111. Sodium 134, potassium 5.0, chloride 102, CO2 of16. BUN 54, creatinine 1.9. Glucose 114. Calcium 6.9. Total bilirubin 7.8, direct bilirubin 7.0, AST 732, ALT was 44, albumin 2.9. MEDICATIONS: List reviewed. ASSESSMENT: 1. Acute kidney injury, worsening renal function. Multifactorial. Intravascular volume depletion secondary to decreased intake, recurrent paracentesis. 2. Hypocalcemia. 3. Hyperbilirubinemia, elevated liver function tests. 4. Hyponatremia. 5. Stage IV colon cancer with liver metastases. 6. Recurrent ascites. 7. Elevated white blood cell count, fever,? peritonitis. PLAN: 1. Since the patient has a very poor p.o. intake and she has been throwing up, we will start her on hyper-al. 2. Calcium gluconate 1 ampule IV piggyback. 3. Pain management. 4. Management of advanced metastatic colon cancer as per oncology team. Valeria Dominguez MD
--- NOTE | 2017-06-20 17:13 | CP.PCM.PN ---
Subjective - Date & Time of Evaluation Date of Evaluation: 06/20/17 Time of Evaluation: 11:40 - Subjective Subjective: Comfortable, no fevers, not in distress, no abdominal pain currently. Objective - Vital Signs/Intake and Output Vital Signs (last 24 hours): Temp Pulse Resp BP Pulse Ox 98.3 F 96 H 20 105/63 98 06/19/17 16:00 06/19/17 16:00 06/19/17 16:00 06/19/17 16:00 06/19/17 16:00 Intake and Output: 06/19/17 06/19/17 06:59 18:59 Intake Total 180 720 Balance 180 720 - Medications Medications: Current Medications Alprazolam (Xanax) 0.25 mg PO Q8H [facility] PRN Reason: Protocol Stop: 06/21/17 16:01 Last Admin: 06/19/17 17:28 Dose: 0.25 mg Docusate Sodium (Colace) 100 mg PO BID [facility] Last Admin: 06/19/17 17:30 Dose: Not Given Dronabinol (Marinol) 2.5 mg PO DAILY [facility] Last Admin: 06/19/17 10:21 Dose: 2.5 mg Fentanyl (Duragesic) 1 patch TD Q72H [facility] Last Admin: 06/18/17 10:18 Dose: 1 patch Piperacillin Sod/Tazobactam Sod (Zosyn 3.375 In Ns 100ml) 100 mls @ 200 mls/hr IVPB Q6 [facility] PRN Reason: Protocol Stop: 06/26/17 12:01 Last Admin: 06/19/17 12:58 Dose: 200 mls/hr Lisinopril (Zestril) 2.5 mg PO DAILY [facility] Last Admin: 06/12/17 10:56 Dose: 2.5 mg Megestrol Acetate (Megace) 200 mg PO DAILY [facility] Stop: 06/22/17 05:00 Morphine Sulfate (Morphine) 2 mg IVP Q4H PRN PRN Reason: Pain, severe (8-10) Last Admin: 06/19/17 14:44 Dose: 2 mg Ondansetron HCl (Zofran Inj) 4 mg IVP Q6H PRN PRN Reason: Nausea/Vomiting Last Admin: 06/19/17 14:41 Dose: 4 mg Oxycodone HCl (Oxycodone Immediate Release Tab) 5 mg PO Q4H PRN PRN Reason: Pain, moderate (4-7) Pantoprazole Sodium (Protonix Ec Tab) 40 mg PO DAILY [facility] Last Admin: 06/19/17 10:14 Dose: 40 mg Polyethylene Glycol (Miralax) 17 gm PO BID [facility] Last Admin: 06/19/17 17:29 Dose: 17 gm Potassium Chloride (K-Dur 20 Meq Er Tab) 20 meq PO BRK [facility] Last Admin: 06/19/17 09:00 Dose: 20 meq Simethicone (Mylicon Liq) 80 mg PO QID PRN PRN Reason: Flatulence Last Admin: 06/14/17 17:02 Dose: 80 mg Sucralfate (Carafate Oral Susp) 1 gm PO BID [facility] Last Admin: 06/19/17 17:29 Dose: 1 gm Ursodiol (Actigall) 300 mg PO DAILY [facility] Last Admin: 06/19/17 10:20 Dose: 300 mg - Labs Labs: 06/19/17 05:30 06/19/17 05:30 PT 30.7 SECONDS (9.4-12.5) H 06/19/17 05:30 INR 2.62 (0.93-1.08) H 06/19/17 05:30 APTT 43.1 Seconds (25.1-36.5) H 06/19/17 05:30 - Constitutional Appears: Cachectic, Chronically Ill - Head Exam Head Exam: NORMAL INSPECTION - Neck Exam Neck Exam: absent: Meningismus - Respiratory Exam Respiratory Exam: Decreased Breath Sounds - Cardiovascular Exam Cardiovascular Exam: +S1, +S2 - GI/Abdominal Exam GI & Abdominal Exam: Soft. absent: Tenderness Assessment and Plan - Assessment and Plan (Free Text) Plan: Assessment Systemic inflammatory response syndrome, consider due to malignancy, R/O sepsis from SBP S/P drainage via abdominal catheter history of acute cholecystitis, S/P conservative therapy with antibiotics colonic malignancy with liver metastases with ascites S/P paracentesis endometriosis uterine fibroids S/P removal Plan gave a dose of IV Vancomycin and continue Zosyn day 2 pending blood cx, urine cx , ascitic fluid cx and analysis overall prognosis is poor
--- NOTE | 2017-06-20 17:39 | CP.PCM.PN ---
Subjective - Date & Time of Evaluation Date of Evaluation: 06/18/17 Time of Evaluation: 06:55 - Subjective Subjective: S: Nurse tells that calcium level is 6.8. Patient has no symptoms. Pertinent medical record was reviewed. O: Alert, awake, not in distress. LUNGS: Normal breathing pattern. A:Hypocalcemia. P:Calcium Gluconate 1g IV slowly. Patient was instruced that she would feel sensation or warmth in her body while this calcium gluconate is being given. Objective - Vital Signs/Intake and Output Vital Signs (last 24 hours): Temp Pulse Resp BP Pulse Ox 97.3 F L 96 H 19 115/70 99 06/20/17 16:12 06/20/17 16:12 06/20/17 16:12 06/20/17 16:12 06/20/17 16:12 Intake and Output: 06/20/17 06/20/17 06:59 18:59 Intake Total 480 0 Balance 480 0 - Medications Medications: Current Medications Alprazolam (Xanax) 0.25 mg PO Q8H [facility] PRN Reason: Protocol Stop: 06/21/17 16:01 Last Admin: 06/20/17 08:02 Dose: 0.25 mg Docusate Sodium (Colace) 100 mg PO BID [facility] Last Admin: 06/20/17 10:59 Dose: Not Given Dronabinol (Marinol) 2.5 mg PO DAILY [facility] Last Admin: 06/20/17 10:59 Dose: 2.5 mg Fentanyl (Duragesic) 1 patch TD Q72H [facility] Last Admin: 06/18/17 10:18 Dose: 1 patch Piperacillin Sod/Tazobactam Sod (Zosyn 3.375 In Ns 100ml) 100 mls @ 200 mls/hr IVPB Q6 [facility] PRN Reason: Protocol Stop: 06/26/17 12:01 Last Admin: 06/20/17 12:43 Dose: 200 mls/hr Chromium/Copper/Manganese/Zinc 1 ml/ Multivitamins/Vitamin C 10 ml/ Amino Acids 2,011 mls @ 83 mls/hr IV .Q24H [facility] Stop: 06/22/17 18:01 Lisinopril (Zestril) 2.5 mg PO DAILY [facility] Last Admin: 06/12/17 10:56 Dose: 2.5 mg Megestrol Acetate (Megace) 200 mg PO DAILY [facility] Stop: 06/22/17 05:00 Last Admin: 06/20/17 10:56 Dose: 200 mg Morphine Sulfate (Morphine) 2 mg IVP Q4H PRN PRN Reason: Pain, severe (8-10) Last Admin: 06/20/17 06:35 Dose: 2 mg Ondansetron HCl (Zofran Inj) 4 mg IVP Q6H PRN PRN Reason: Nausea/Vomiting Last Admin: 06/20/17 12:43 Dose: 4 mg Oxycodone HCl (Oxycodone Immediate Release Tab) 5 mg PO Q4H PRN PRN Reason: Pain, moderate (4-7) Pantoprazole Sodium (Protonix Ec Tab) 40 mg PO DAILY [facility] Last Admin: 06/20/17 10:56 Dose: 40 mg Polyethylene Glycol (Miralax) 17 gm PO BID [facility] Last Admin: 06/20/17 10:59 Dose: 17 gm Potassium Chloride (K-Dur 20 Meq Er Tab) 20 meq PO BRK [facility] Last Admin: 06/20/17 08:02 Dose: 20 meq Simethicone (Mylicon Liq) 80 mg PO QID PRN PRN Reason: Flatulence Last Admin: 06/14/17 17:02 Dose: 80 mg Sucralfate (Carafate Oral Susp) 1 gm PO BID [facility] Last Admin: 06/20/17 10:56 Dose: 1 gm Ursodiol (Actigall) 300 mg PO DAILY [facility] Last Admin: 06/20/17 10:56 Dose: 300 mg - Labs Labs: 06/20/17 09:30 06/20/17 09:30 PT 30.7 SECONDS (9.4-12.5) H 06/19/17 05:30 INR 2.62 (0.93-1.08) H 06/19/17 05:30 APTT 43.1 Seconds (25.1-36.5) H 06/19/17 05:30
[2017-06-20] MEDS: TRACE ELEMENTS IV SCH (20:31)
[2017-06-20] MEDS: AMINO IV SCH (20:31)
[2017-06-20] MEDS: MULTIVITAMIN IV SCH (20:31)
[2017-06-20] MEDS: DEXT IV SCH (20:31)
[2017-06-20] MEDS: [UNRECOGNIZED DRUG - OTHER] IV SCH (20:31)
[2017-06-21] MEDS: Morphine 2 mg/ml ISec IVP PRN ×2 (04:26→10:44)
[2017-06-21] MEDS: Piperacillin/Tazobact 3.375 gm 100 ML IVPB SCH ×3 (05:52→17:48)
[2017-06-21 06:28] LABS: MEAN CELL VOLUME 85.1 fl (80.0-105.0); MEAN CORPUSCULAR HEMOGLOBIN 27.8 pg (25.0-35.0); MEAN CORPUSCULAR HGB CONC 32.6 g/dl (31.0-37.0); MEAN PLATELET VOLUME 9.3 fl (7.0-11.0); RBC 3.96 10^6/uL (3.5-6.1); RED CELL DISTRIBUTION WIDTH 20.1 % (11.5-14.5)
[2017-06-21 06:49] LABS: ALB/GLOB RATIO 0.7 (1.1-1.8); ALBUMIN 2.8 g/dL (3.0-4.8); BILIRUBIN,DIRECT 7.4 mg/dL (0.0-0.4); CALCIUM 7.6 mg/dL (8.4-10.5)
[2017-06-21 07:12] LABS: GLUCOSE PERITONEAL FLUID 112 mg/dL; LDH PERITONEAL FLUID 242 U/L (<63); TOTAL PROTEIN PERITONEAL FLUID <3.0 g/dL
[2017-06-21] MEDS: Potassium Chloride 20 mEq ER Tab PO SCH (08:40)
[2017-06-21 09:32] LABS: URINE BILIRUBIN MODERATE (NEGATIVE); URINE BLOOD TRACE-INTACT (NEGATIVE); URINE GLUCOSE (UA) NEGATIVE (NEGATIVE); URINE LEUKOCYTE ESTERASE TRACE Leu/uL (NEGATIVE); URINE PROTEIN TRACE mg/dL (<30 mg/dL); URINE UROBILINOGEN 0.2 E.U./dL (<1 E.U./dL)
[2017-06-21 09:46] LABS: URINE APPEARANCE CLEAR (CLEAR); URINE COLOR DARK YELLOW (YELLOW)
[2017-06-21 09:49] LABS: URINE BACTERIA SMALL (NEG); URINE RBC 0 - 2 /hpf (0-2)
[2017-06-21] MEDS: POLYETHYLENE GLYCOL 3350 17 GM/Dose PACKET PO SCH ×2 (10:42→17:48)
[2017-06-21] MEDS: Pantoprazole 40 mg EC Tab PO SCH (10:42)
[2017-06-21] MEDS: Sucralfate 1 gm/10 ml Oral Susp UD PO SCH ×2 (10:42→17:48)
[2017-06-21] MEDS: Megestrol Acetate 40 mg/ml Cup PO SCH (15:14)
[2017-06-21] MEDS: Morphine 5 MG/ML SYRINGE IVP PRN ×2 (16:36→21:47)
--- NOTE | 2017-06-21 17:23 | CP.PCM.PN ---
Subjective - Date & Time of Evaluation Date of Evaluation: 06/21/17 Time of Evaluation: 10:05 - Subjective Subjective: Occasional weakness, no fevers, occasional abdominal pain. Objective - Vital Signs/Intake and Output Vital Signs (last 24 hours): Temp Pulse Resp BP Pulse Ox 97.3 F L 96 H 19 115/70 99 06/20/17 16:12 06/20/17 16:12 06/20/17 16:12 06/20/17 16:12 06/20/17 16:12 Intake and Output: 06/20/17 06/20/17 06:59 18:59 Intake Total 480 0 Balance 480 0 - Medications Medications: Current Medications Alprazolam (Xanax) 0.25 mg PO Q8H [facility] PRN Reason: Protocol Stop: 06/21/17 16:01 Last Admin: 06/20/17 08:02 Dose: 0.25 mg Docusate Sodium (Colace) 100 mg PO BID [facility] Last Admin: 06/20/17 10:59 Dose: Not Given Dronabinol (Marinol) 2.5 mg PO DAILY [facility] Last Admin: 06/20/17 10:59 Dose: 2.5 mg Fentanyl (Duragesic) 1 patch TD Q72H [facility] Last Admin: 06/18/17 10:18 Dose: 1 patch Piperacillin Sod/Tazobactam Sod (Zosyn 3.375 In Ns 100ml) 100 mls @ 200 mls/hr IVPB Q6 [facility] PRN Reason: Protocol Stop: 06/26/17 12:01 Last Admin: 06/20/17 12:43 Dose: 200 mls/hr Chromium/Copper/Manganese/Zinc 1 ml/ Multivitamins/Vitamin C 10 ml/ Amino Acids 2,011 mls @ 83 mls/hr IV .Q24H [facility] Stop: 06/22/17 18:01 Lisinopril (Zestril) 2.5 mg PO DAILY [facility] Last Admin: 06/12/17 10:56 Dose: 2.5 mg Megestrol Acetate (Megace) 200 mg PO DAILY [facility] Stop: 06/22/17 05:00 Last Admin: 06/20/17 10:56 Dose: 200 mg Morphine Sulfate (Morphine) 2 mg IVP Q4H PRN PRN Reason: Pain, severe (8-10) Last Admin: 06/20/17 06:35 Dose: 2 mg Ondansetron HCl (Zofran Inj) 4 mg IVP Q6H PRN PRN Reason: Nausea/Vomiting Last Admin: 06/20/17 12:43 Dose: 4 mg Oxycodone HCl (Oxycodone Immediate Release Tab) 5 mg PO Q4H PRN PRN Reason: Pain, moderate (4-7) Pantoprazole Sodium (Protonix Ec Tab) 40 mg PO DAILY [facility] Last Admin: 06/20/17 10:56 Dose: 40 mg Polyethylene Glycol (Miralax) 17 gm PO BID [facility] Last Admin: 06/20/17 10:59 Dose: 17 gm Potassium Chloride (K-Dur 20 Meq Er Tab) 20 meq PO BRK [facility] Last Admin: 06/20/17 08:02 Dose: 20 meq Simethicone (Mylicon Liq) 80 mg PO QID PRN PRN Reason: Flatulence Last Admin: 06/14/17 17:02 Dose: 80 mg Sucralfate (Carafate Oral Susp) 1 gm PO BID [facility] Last Admin: 06/20/17 10:56 Dose: 1 gm Ursodiol (Actigall) 300 mg PO DAILY [facility] Last Admin: 06/20/17 10:56 Dose: 300 mg - Labs Labs: 06/20/17 09:30 06/20/17 09:30 PT 30.7 SECONDS (9.4-12.5) H 06/19/17 05:30 INR 2.62 (0.93-1.08) H 06/19/17 05:30 APTT 43.1 Seconds (25.1-36.5) H 06/19/17 05:30 - Constitutional Appears: Cachectic, Chronically Ill - Head Exam Head Exam: NORMAL INSPECTION - ENT Exam ENT Exam: Mucous Membranes Moist - Neck Exam Neck Exam: absent: Meningismus - Respiratory Exam Respiratory Exam: Decreased Breath Sounds - Cardiovascular Exam Cardiovascular Exam: +S1, +S2 - GI/Abdominal Exam GI & Abdominal Exam: Soft. 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
--- NOTE | 2017-06-21 18:18 | PN ---
DATE: 06/21/2017 ONCOLOGY PROGRESS NOTE LOCATION: The patient is in room 364, bed 2. SUBJECTIVE: The patient is sitting in bed. She is awake, alert, but appears very weak, complaining of chills, absolutely no appetite, some heartburn. Apparently, she threw up again last night when she attempted to drink Ensure Clear. Appetite is poor to zero. The patient has been started on PPN. Denies any significant pain at this point. Still having some right upper quadrant discomfort. Pain scale on a scale of 0-10 is at least 3. The patient has not moved her bowels in the last 12 to 14 hours. PHYSICAL EXAMINATION: GENERAL: The patient appears to be getting progressively weaker. VITAL SIGNS: Today's vital signs reveal T-max of 97.4, pulse is 101, blood pressure is 114/77, respirations 20, O2 sat on room air is 97%. HEENT: Head is normocephalic, atraumatic. Temporal muscle wasting is noted. The patient appears to be getting emaciated. Examination of the conjunctivae appeared to be pale. Sclerae are icteric. Examination of the oropharynx revealed no oropharyngeal lesions. Tongue is coated. No evidence of any fungal infection. NECK: Supple. There is no adenopathy. No jugular venous distention noted. LUNGS: Clear to percussion and auscultation. Decreased breath sounds in the left bases are noted. CARDIOVASCULAR: Examination of the cardiovascular system reveals PMI to be in the fifth intercostal space, inside the midclavicular line. S1 and S2 are normal. No gallop or murmur is heard. ABDOMEN: Protuberant, distended. The patient has an Aspira catheter on the right side of the abdomen. The patient has right-sided upper quadrant tenderness. Liver is palpable. No rebound, rigidity or guarding is noted. The patient has significant ascites, status post drainage of 15,000 mL of ascitic fluid yesterday. Cultures from the peritoneal fluid have been negative so far. EXTREMITIES: Reveals ankle edema. Peripheral pulses are palpable. There is no evidence of cyanosis. GENITOURINARY/RECTAL: Deferred. NEUROLOGIC: Reveals the patient to be awake, alert, appeared to be very weak, has trouble coming up with the sentences, but overall seems to be holding her own. No focal deficits are discernible. There is no hepatic flap. There is no evidence of adenopathy in the neck, axilla or groin. LABORATORY DATA: Labs from today were reviewed. White count is 16,000, hemoglobin 11, hematocrit 33, platelet count of 110,000. Electrolytes reveal K of 3.8, creatinine is 1.8 with a BUN of 56, calcium is 7.6. Total bilirubin has gone up to 8.1 with an AST of 135, ALT is 42, alkaline phosphatase is 519. MEDICATIONS: The patient's medications were reviewed. She is on Actigall, Carafate. She is on IV alimentation at this point 83 mL an hour, Colace. She is on fentanyl patches. She is on potassium chloride 20 mEq daily, which may have to be discontinued; Marinol 12.5 mg daily; Megace 200 mg daily; MiraLax 17 g p.o. daily; morphine sulfate 2 mg IV q. 4 h. p.r.n.; Mylicon 80 mg q.i.d.; oxycodone 5 mg q. 4 h. p.r.n.; pantoprazole 40 mg daily; Xanax 0.25 mg q. 8 hours; lisinopril 2.5 mg daily; Zofran 4 mg IV q. 6 h. p.r.n.; Zosyn 3.375 mg IV q. 6 h. p.r.n. ASSESSMENT NOTES AND PLAN: The patient has progressive metastatic stage IV carcinoma of the colon with progressive lung and retroperitoneal metastasis. Recently noted rise in the bilirubin is related to both intrahepatic cholestasis, superimposed cholelithiasis with cystic duct stones and obstruction at the mouth of the cystic duct secondary to metastatic tumor in the liver. The patient's medication, Stivarga is on hold at this time. Can be started on 80 mg a day and hoping to meet with the family regarding home situation. The patient lives by herself. Her brother is going to be coming today along with a friend who is the healthcare proxy. We will have to make then decision soon as to which direction to go as the patient is rapidly failing. Options for home hospice have to be excluded at this time as well. Discharge planning nurse and palliative care nurse have also been working with the patient as diligently as possible. Blood work for a.m. has been requested. Overall prognosis appears poor. We will continue with the currently aggressive supportive care. Prognosis as I mentioned appears to be ominous at this point. Time spent with the patient greater than 45 minutes. Thalia Pretty MD
--- NOTE | 2017-06-21 19:38 | PN ---
DATE: 06/21/2017 SUBJECTIVE: Patient is seen sitting in bed. She is awake, she is alert. She complains of pain in her abdomen. She complains of not feeling well. She complains of fatigue. PHYSICAL EXAMINATION: GENERAL: Cachectic-appearing elderly lady. VITAL SIGNS: Blood pressure 114/77, heart rate 101, respiratory rate 20, temperature 97.5. HEENT: Normocephalic, atraumatic. NECK: Supple, no JVD. LUNGS: Bilateral equal air entry, bilateral equal expansion, no rales. CARDIAC: S1 and S2. Regular rate and rhythm. No murmur, no rub. ABDOMEN: Distended, soft, positive tenderness in the right side. Bowel sounds present. EXTREMITIES: 1+ pitting edema of the lower extremities. INTAKE AND OUTPUT: 1330/not charted. LABORATORY DATA: WBC 16, hemoglobin 11, hematocrit 34, platelets 110. Sodium 133, potassium 3.8, chloride 101, CO2 17, BUN 56, creatinine 1.8, glucose 202, calcium 7.6, total bili 8.1, direct bili 7.4, albumin 2.8. MEDICATIONS: List reviewed. ASSESSMENT: 1. Advanced stage IV colon cancer with liver metastasis, worsening disease. 2. Cholestatic jaundice. 3. Recurrent ascites. 4. Malnutrition and poor appetite. 5. Hypertension. 6. Acute kidney injury. PLAN: 1. Continue hyperal. 2. Monitor electrolytes. 3. Multifactorial acute kidney injury secondary to recurrent ascites, prerenal azotemia, component of hepatorenal syndrome? 4. Comfort care. Valeria Dominguez MD
--- NOTE | 2017-06-21 20:09 | PN ---
DATE: 06/21/2017 SUBJECTIVE: This patient was seen and evaluated today earlier. The patient/s family was at bedside. PHYSICAL EXAMINATION: VITAL SIGNS: Temperature is 97.5, pulse 101, blood pressure is 114/77. HEENT: Jaundiced, atraumatic. NECK: Supple. HEART: S1 and S2 heard. LUNGS: Bilateral air entry present, slightly reduced at the base. ABDOMEN: Soft. There is tenderness present in the right upper quadrant area. LABORATORY DATA: WBC 16, Hemoglobin 11, hematocrit 33.7, platelets 110. Chemistry shows total bilirubin has now gone up to 8.1, direct bilirubin is 7.4. BUN 56, creatinine 1.8. IMPRESSION: This is a 61-year-old patient with metastatic colon cancer, hepatic metastasis, the patient does have multiple calcified gallstones, history of cholecystitis before, has significant right upper quadrant discomfort, the patient was seen as not a surgical candidate, has ascites, status post paracentesis before. The patient was on Stivarga recently. The patient did have elevation of the LFTs. The concern is increasing LFTs, acute kidney injury on the top of chronic kidney disease, and the patient has ascites. RECOMMENDATIONS: This patient overall has an advanced metastatic disease. Recent worsening of the LFTs. The patient/s INR is also elevated at 2.62. The patient/s repeat ultrasound scan done on 06/18 was reviewed. Common bile duct shows only 2.6. In view of this increasing LFTs and worsening of the liver function, we will discuss with Dr. Pretty prior to considering further chemotherapy. The patient/s family wants to have a conference call with Dr. Pretty. We will continue to closely follow up of her care. Joi Turk MD
[2017-06-21] MEDS: [UNRECOGNIZED DRUG - OTHER] IV SCH (20:53)
[2017-06-21] MEDS: AMINO IV SCH (20:53)
[2017-06-21] MEDS: TRACE ELEMENTS IV SCH (20:53)
[2017-06-21] MEDS: MULTIVITAMIN IV SCH (20:53)
[2017-06-21] MEDS: DEXT IV SCH (20:53)
[2017-06-22] MEDS: Morphine 5 MG/ML SYRINGE IVP PRN ×4 (03:08→23:13)
[2017-06-22] MEDS: Piperacillin/Tazobact 3.375 gm 100 ML IVPB SCH ×3 (06:00→12:14)
[2017-06-22] MEDS: Potassium Chloride 20 mEq ER Tab PO SCH (07:46)
--- NOTE | 2017-06-22 09:56 | PN ---
DATE: 06/20/2017 ONCOLOGY PROGRESS NOTE LOCATION: The patient is in room 364, bed 2. SUBJECTIVE: The patient is seen sitting in bed. She is awake, alert and oriented, appears weak, complains of some chills. No appetite again between yesterday and today over the last 24 hours, though this morning as I am examining her, the patient apparently had cereal. Did have another episode of emesis last night, but has not had any other event since last night. Had very minimal pain, slept through the night. Has been moving her bowel. Currently, on a pain scale of 0-10, pain is 0 while she is sitting comfortably in the bed. The patient did move her bowels. PHYSICAL EXAMINATION: GENERAL: The patient is awake, alert and oriented. Pain as I said is 0 at this point in time. VITAL SIGNS: Stable. Blood pressure is 106/55, heart rate is 90, respirations 18, T-max is 98.4. HEENT: Temporal muscle wasting is noted. Sclera is icteric. Conjunctivae pale. Examination of the oropharynx reveals no oropharyngeal lesions. Tongue is on the dry side and coated. NECK: Supple. There is no adenopathy. No jugular venous distention noted. LUNGS: Relatively clear to percussion and auscultation. HEART: Examination of the heart reveals PMI to be in the fifth intercostal space, inside the midclavicular line. S1 and S2 are normal. No gallop or murmur is heard. ABDOMEN: Mildly distended. The patient has an Aspira catheter in the right upper quadrant of the abdomen. Abdomen appears to be slightly more distended today than it was yesterday. She has tenderness in the right upper quadrant on palpation. No rebound, rigidity or guarding is noted. In the right upper quadrant of the abdomen, liver appears to be slightly enlarged. Bowel sounds are present. EXTREMITIES: Reveal no cyanosis, clubbing or edema. GENITOURINARY: Deferred. NEUROLOGIC: Reveals the patient to be awake, alert and oriented. No acute distress. LABORATORY DATA: Lab data was reviewed. White count today is 17.6, hemoglobin 10.5, hematocrit 32, platelet count of 111,000. Sodium is 134, K is 5, CO2 is 16, BUN is 54, creatinine is 1.9, total bili is 7.8. Procalcitonin as of 06/18/2017 was 1.76. Blood cultures have been negative. Peritoneal fluid cultures so far have been negative at 2 days. MEDICATIONS: The patient's medications were reviewed. She is currently on Actigall 300 daily, Carafate 1 g b.i.d. She is on IV supplementation fluids 2000 mL, at 80 mL an hour with amino acids; Colace 100 mg b.i.d. She is on fentanyl patch 25 mcg q. 72 hours, K-Dur 20 mEq b.i.d., Marinol 2.5 mg daily, Megace mg p.o. daily, MiraLax 17 g p.o. b.i.d., morphine sulfate 2 mg IV q.4h. p.r.n., Mylicon 80 mg q.i.d., oxycodone 5 mg q.4h. p.r.n. for moderate pain, pantoprazole 40 mg daily, Xanax 0.25 mg q. 8 hours, Zestril 2.5 mg daily, Zofran 4 mg q.6h., Zosyn 3.375 mg IV piggyback q. 6 hours for possible SBP. ASSESSMENT NOTES AND PLAN: The patient has progressive stage IV metastatic colorectal malignancy, currently with progressive liver metastasis associated with rising bilirubin, which appears to be primarily related to intrahepatic cholestasis with superimposed probably secondary cholelithiasis causing obstruction at the cystic duct level. The patient's bilirubin could be elevated also from the effects of the multikinase inhibitor, Stivarga with a tyrosine kinase inhibitor. The patient has acute kidney injury, which is improving and that may be secondary to intravascular depletion, probably reflection of the kidney dysfunction related to her liver dysfunction or on combination of her history of hypertension as well. Again, detailed discussion with the patient today. I am going to be meeting with the family, her brother and her best friend tomorrow to see in which direction we should proceed as far as care is concerned. We are going to touch base on quality of life issues and possible hospice as well. The patient currently wants to be therapy, so we have discussed amongst ourselves. I am going to place her back on her Stivarga 80 mg a day as her AST and ALT seems to be stable and total bilirubin is around at the same level. I said to her we will monitor her on the 80 mg a day and see in which direction we go as far as the metastatic cancer is concerned. Routine post exam instructions have been given to the patient. Time spent with the patient is more than 45 minutes. Today, all questions asked by the patient were fully answered. Copies of the labs were given. Thalia Pretty MD
[2017-06-22] MEDS: Sucralfate 1 gm/10 ml Oral Susp UD PO SCH ×2 (10:45→17:56)
[2017-06-22] MEDS: Pantoprazole 40 mg EC Tab PO SCH (10:47)
[2017-06-22] MEDS: POLYETHYLENE GLYCOL 3350 17 GM/Dose PACKET PO SCH ×2 (10:47→17:57)
[2017-06-22 11:45] LABS: ALB/GLOB RATIO 0.6 (1.1-1.8); ALBUMIN 2.6 g/dL (3.0-4.8); ALT/SGPT 54 U/L (7-56); AST/SGOT 149 U/L (14-36); BILIRUBIN,DIRECT 8.8 mg/dL (0.0-0.4); BLOOD UREA NITROGEN 53 mg/dL (7-21); CALCIUM 7.5 mg/dL (8.4-10.5); GFR AFRICAN-AMERICAN > 60; GFR NON-AFRICAN AMERICAN 50
--- NOTE | 2017-06-22 12:27 | PN ---
DATE: 06/22/2017 SUBJECTIVE: The patient is seen, sitting in bed. She is awake and alert. She is comfortable. She reports today, pain is minimal. PHYSICAL EXAMINATION: GENERAL: Cachectic-appearing elderly lady, sitting in bed. VITAL SIGNS: Blood pressure 105/69, heart rate 114, respiratory rate 20, and temperature 97.4. HEENT: Normocephalic, atraumatic, positive pallor. NECK: Supple, no JVD. LUNGS: Bilateral equal air entry, decreased breath sounds at bases. CARDIAC: S1 and S2, regular rate and rhythm, no murmur, no rub. ABDOMEN: Obese, distended, soft, right-sided peritoneal catheter, bowel sounds present. EXTREMITIES: 1+ pitting edema of the lower extremities. INTAKE AND OUTPUT: Not charted. LABORATORY DATA: Chemistry: Sodium 136, potassium 3.6, chloride 102, CO2 of 16. BUN 53, creatinine 1.1. Glucose 194. Calcium 7.5, albumin 2.6, corrected calcium 8.5. Total bili 9.7, direct bili 8.8. Urine culture, yeast. MEDICATIONS: List reviewed. ASSESSMENT: 1. Progressive stage IV colon cancer with liver metastases. 2. Acute kidney injury, resolved? versus laboratory error. 3. Hypokalemia. 4. Anion gap metabolic acidosis. 5. Prerenal azotemia. 6. Fever and leukocytosis, on empiric antibiotics. PLAN: 1. Continue hyperal. 2. Push p.o. intake as tolerated. 3. Management of stage IV colon cancer as per oncology team Valeria Dominguez MD
--- NOTE | 2017-06-22 12:50 | CP.PCM.PN ---
Addendum entered and electronically signed by Calvin Dill DO 06/22/17 13:12: SIRS: being followed by ID, on zosyn, peritoneal albumin pending but low total protein, ascites likely just 2/2 extensive hepatic mets Original Note: <Calvin Dill - Last Filed: 06/22/17 12:46> Subjective - Date & Time of Evaluation Date of Evaluation: 06/22/17 Time of Evaluation: 07:10 - Subjective Subjective: Calvin Dill D.O. PGY-2, Internal Medicine Resident, Hem/Onc Progress Note 61 year old female with a PMH of Stage IV metastatic colon cancer with intraabdominal carcinomatosis and liver metastases who presented with pain and nausea after aspira cathter insertion. Patient was seen and examined at bedside. Still very poor appetite, states can't tolerate the regular ensure. On hyper-al. Some abdominal pain still. Having difficulty with end of life planning. Objective - Vital Signs/Intake and Output Vital Signs (last 24 hours): Temp Pulse Resp BP Pulse Ox 97.4 F L 114 H 20 105/69 99 06/22/17 09:08 06/22/17 09:08 06/22/17 09:08 06/22/17 09:08 06/22/17 09:08 Intake and Output: 06/22/17 06/22/17 06:59 18:59 Intake Total 120 Balance 120 - Medications Medications: Current Medications Docusate Sodium (Colace) 100 mg PO BID [facility] Last Admin: 06/22/17 10:46 Dose: Not Given Dronabinol (Marinol) 2.5 mg PO DAILY [facility] Last Admin: 06/22/17 10:46 Dose: Not Given Fentanyl (Duragesic) 1 patch TD Q72H [facility] Last Admin: 06/21/17 10:45 Dose: 1 patch Piperacillin Sod/Tazobactam Sod (Zosyn 3.375 In Ns 100ml) 100 mls @ 200 mls/hr IVPB Q6 [facility] PRN Reason: Protocol Stop: 06/26/17 12:01 Last Admin: 06/22/17 12:14 Dose: 200 mls/hr Chromium/Copper/Manganese/Zinc 1 ml/ Multivitamins/Vitamin C 10 ml/ Amino Acids 2,011 mls @ 83 mls/hr IV .Q24H [facility] Stop: 06/22/17 18:01 Last Admin: 06/21/17 20:53 Dose: 83 mls/hr Lisinopril (Zestril) 2.5 mg PO DAILY [facility] Last Admin: 06/12/17 10:56 Dose: 2.5 mg Morphine Sulfate (Morphine) 2 mg IVP Q4H PRN PRN Reason: Pain, severe (8-10) Last Admin: 06/22/17 10:47 Dose: 2 mg Ondansetron HCl (Zofran Inj) 4 mg IVP Q6H PRN PRN Reason: Nausea/Vomiting Last Admin: 06/21/17 08:38 Dose: 4 mg Oxycodone HCl (Oxycodone Immediate Release Tab) 5 mg PO Q4H PRN PRN Reason: Pain, moderate (4-7) Pantoprazole Sodium (Protonix Ec Tab) 40 mg PO DAILY [facility] Last Admin: 06/22/17 10:47 Dose: 40 mg Polyethylene Glycol (Miralax) 17 gm PO BID [facility] Last Admin: 06/22/17 10:47 Dose: Not Given Potassium Chloride (K-Dur 20 Meq Er Tab) 20 meq PO BRK [facility] Last Admin: 06/22/17 07:46 Dose: 20 meq Simethicone (Mylicon Liq) 80 mg PO QID PRN PRN Reason: Flatulence Last Admin: 06/14/17 17:02 Dose: 80 mg Sucralfate (Carafate Oral Susp) 1 gm PO BID [facility] Last Admin: 06/22/17 10:45 Dose: 1 gm Ursodiol (Actigall) 300 mg PO DAILY [facility] Last Admin: 06/22/17 10:45 Dose: 300 mg - Labs Labs: 06/21/17 06:00 06/22/17 11:32 PT 30.7 SECONDS (9.4-12.5) H 06/19/17 05:30 INR 2.62 (0.93-1.08) H 06/19/17 05:30 APTT 43.1 Seconds (25.1-36.5) H 06/19/17 05:30 - Constitutional Appears: No Acute Distress, Chronically Ill, Cachectic - Head Exam Head Exam: ATRAUMATIC, NORMOCEPHALIC - Eye Exam Eye Exam: EOMI, PERRL, scleral icterus - ENT Exam ENT Exam: Mucous Membranes Moist, Normal Oropharynx - Neck Exam Neck Exam: Normal Inspection - Respiratory Exam Respiratory Exam: Clear to Ausculation Bilateral. absent: Rhonchi, Wheezes - Cardiovascular Exam Cardiovascular Exam: RRR, +S1, +S2 - GI/Abdominal Exam GI & Abdominal Exam: Distended, Aspira cathter in place, Soft, Normal Bowel Sounds, + Fluid wave - Extremities Exam Extremities Exam: Pedal Edema (+1). absent: Tenderness - Neurological Exam Neurological Exam: Alert, Awake, CN II-XII Intact, Oriented x4 - Psychiatric Exam Psychiatric exam: Normal Affect, Normal Mood - Skin Skin Exam: Dry, Warm, yellowing noted Assessment and Plan - Assessment and Plan (Free Text) Assessment: 61 year old female with a PMH of Stage IV metastatic colon cancer with intraabdominal carcinomatosis and liver metastases who presented with pain and nausea after aspira cathter insertion Plan: Stave IV colorectal CA with abdominal carcinomatosis and liver metastases Ascites s/p aspira catheter for intermittent drainage HTN Hyperbilirubinemia Transaminemia Hyponatremia Dehydration with associated OMAR Anorexia and cachexia SIRS Off stivarga 2/2 hyperbilirubinemia Continue intermittent drainage from aspira catheter Palliative/Hospice following, discussions of goals of care underway Still needs hyper-al due to poor PO intake Discussed at length her goals, patient has 2 sisters and 2 close friends a niece that visits a couple of times a week yet needs more intensive care/help at home Continue pain control Continue PT/OT and OOB Very poor prognosis Patient was seen and examined and case was discussed with attending physician <Thalia Pretty P - Last Filed: 06/26/17 21:50> Objective - Vital Signs/Intake and Output Vital Signs (last 24 hours): Temp Pulse Resp BP Pulse Ox 98 F 102 H 18 106/64 97 06/26/17 16:00 06/26/17 16:00 06/26/17 16:00 06/26/17 16:00 06/26/17 16:00 - Medications Medications: Current Medications Docusate Sodium (Colace) 100 mg PO BID [facility] Last Admin: 06/26/17 18:18 Dose: 100 mg Dronabinol (Marinol) 2.5 mg PO DAILY [facility] Last Admin: 06/26/17 09:42 Dose: 2.5 mg Fentanyl (Duragesic) 1 patch TD Q72H [facility] Last Admin: 06/24/17 09:44 Dose: 1 patch Home Med (Home Med) 2 unit PO DAILY [facility] Last Admin: 06/26/17 09:46 Dose: Not Given Chromium/Copper/Manganese/Zinc 1 ml/ Multivitamins/Vitamin C 10 ml/ Insulin Human Regular 10 units/ Amino Acids 2,011.1 mls @ 83 mls/hr IV .Q24H [facility] Last Admin: 06/26/17 18:18 Dose: 83 mls/hr Lactulose (Enulose) 10 gm PO BID [facility] Last Admin: 06/26/17 18:20 Dose: Not Given Morphine Sulfate (Morphine) 2 mg IVP Q2H PRN PRN Reason: Pain, severe (8-10) Last Admin: 06/26/17 09:43 Dose: 2 mg Nystatin (Nystatin Oral Susp) 5 ml PO QID [facility] Last Admin: 06/26/17 18:18 Dose: 5 ml Ondansetron HCl (Zofran Inj) 4 mg IVP Q6H PRN PRN Reason: Nausea/Vomiting Last Admin: 06/26/17 06:31 Dose: 4 mg Oxycodone HCl (Oxycodone Immediate Release Tab) 5 mg PO Q4H PRN PRN Reason: Pain, moderate (4-7) Pantoprazole Sodium (Protonix Ec Tab) 40 mg PO DAILY [facility] Last Admin: 06/26/17 09:43 Dose: 40 mg Polyethylene Glycol (Miralax) 17 gm PO BID [facility] Last Admin: 06/26/17 18:19 Dose: Not Given Potassium Chloride (K-Dur 20 Meq Er Tab) 20 meq PO BRK [facility] Last Admin: 06/26/17 09:42 Dose: 20 meq Simethicone (Mylicon Liq) 80 mg PO QID PRN PRN Reason: Flatulence Last Admin: 06/14/17 17:02 Dose: 80 mg Sucralfate (Carafate Oral Susp) 1 gm PO BID [facility] Last Admin: 06/26/17 18:20 Dose: Not Given Ursodiol (Actigall) 300 mg PO DAILY [facility] Last Admin: 06/26/17 09:42 Dose: 300 mg - Labs Labs: 06/26/17 06:00 06/26/17 06:00 PT 22.8 SECONDS (9.4-12.5) H 06/23/17 05:40 INR 1.96 (0.93-1.08) H 06/23/17 05:40 APTT 41.2 Seconds (25.1-36.5) H 06/23/17 05:40 Attending/Attestation - Attestation I have personally seen and examined this patient.: Yes I have fully participated in the care of the patient.: Yes I have reviewed all pertinent clinical information, including history, physical exam and plan: Yes
--- NOTE | 2017-06-22 14:47 | CP.PCM.PN ---
Subjective - Date & Time of Evaluation Date of Evaluation: 06/22/17 Time of Evaluation: 13:00 - Subjective Subjective: Alert, weak, appetite poor. Complains of abdominal swelling, scheduled for draining via Aspira catheter today. Pain tolerable Objective - Vital Signs/Intake and Output Vital Signs (last 24 hours): Temp Pulse Resp BP Pulse Ox 97.4 F L 114 H 20 105/69 99 06/22/17 09:08 06/22/17 09:08 06/22/17 09:08 06/22/17 09:08 06/22/17 09:08 Intake and Output: 06/22/17 06/22/17 06:59 18:59 Intake Total 120 Balance 120 - Medications Medications: Current Medications Docusate Sodium (Colace) 100 mg PO BID [facility] Last Admin: 06/22/17 10:46 Dose: Not Given Dronabinol (Marinol) 2.5 mg PO DAILY [facility] Last Admin: 06/22/17 10:46 Dose: Not Given Fentanyl (Duragesic) 1 patch TD Q72H [facility] Last Admin: 06/21/17 10:45 Dose: 1 patch Piperacillin Sod/Tazobactam Sod (Zosyn 3.375 In Ns 100ml) 100 mls @ 200 mls/hr IVPB Q6 [facility] PRN Reason: Protocol Stop: 06/26/17 12:01 Last Admin: 06/22/17 12:14 Dose: 200 mls/hr Chromium/Copper/Manganese/Zinc 1 ml/ Multivitamins/Vitamin C 10 ml/ Amino Acids 2,011 mls @ 83 mls/hr IV .Q24H [facility] Stop: 06/22/17 18:01 Last Admin: 06/21/17 20:53 Dose: 83 mls/hr Lisinopril (Zestril) 2.5 mg PO DAILY [facility] Last Admin: 06/12/17 10:56 Dose: 2.5 mg Morphine Sulfate (Morphine) 2 mg IVP Q4H PRN PRN Reason: Pain, severe (8-10) Last Admin: 06/22/17 14:25 Dose: 2 mg Ondansetron HCl (Zofran Inj) 4 mg IVP Q6H PRN PRN Reason: Nausea/Vomiting Last Admin: 06/21/17 08:38 Dose: 4 mg Oxycodone HCl (Oxycodone Immediate Release Tab) 5 mg PO Q4H PRN PRN Reason: Pain, moderate (4-7) Pantoprazole Sodium (Protonix Ec Tab) 40 mg PO DAILY [facility] Last Admin: 06/22/17 10:47 Dose: 40 mg Polyethylene Glycol (Miralax) 17 gm PO BID [facility] Last Admin: 06/22/17 10:47 Dose: Not Given Potassium Chloride (K-Dur 20 Meq Er Tab) 20 meq PO BRK [facility] Last Admin: 06/22/17 07:46 Dose: 20 meq Simethicone (Mylicon Liq) 80 mg PO QID PRN PRN Reason: Flatulence Last Admin: 06/14/17 17:02 Dose: 80 mg Sucralfate (Carafate Oral Susp) 1 gm PO BID [facility] Last Admin: 06/22/17 10:45 Dose: 1 gm Ursodiol (Actigall) 300 mg PO DAILY [facility] Last Admin: 06/22/17 10:45 Dose: 300 mg - Labs Labs: 06/21/17 06:00 06/22/17 11:32 PT 30.7 SECONDS (9.4-12.5) H 06/19/17 05:30 INR 2.62 (0.93-1.08) H 06/19/17 05:30 APTT 43.1 Seconds (25.1-36.5) H 06/19/17 05:30 - Constitutional Appears: Cachectic, Chronically Ill - Head Exam Head Exam: NORMAL INSPECTION - Eye Exam Eye Exam: Normal appearance, Scleral icterus - ENT Exam ENT Exam: Mucous Membranes Moist - Cardiovascular Exam Cardiovascular Exam: REGULAR RHYTHM, +S1, +S2 - GI/Abdominal Exam GI & Abdominal Exam: Distended, Firm, Diminished Bowel Sounds - Extremities Exam Additional comments: bilateral lower extremity edema - Neurological Exam Neurological Exam: Alert, Oriented x3 - Skin Skin Exam: Dry, Pallor Assessment and Plan - Assessment and Plan (Free Text) Assessment: 61 year old female with history of metastatic colon cancer, carcinomatosis, who is admitted with hyperbilirubinemia, intractable pain, ascites, anorexia and cachexia and weakness. Iris is alert, weak. She describes her pain as tolerable at this point in time. Her abdomen is distended and uncomfortable. Awaiting drainage via Aspira catheter today. Iris has been in discussing her medical treatment plan with Dr Pretty. She has also been conferring with GI and Renal services. Tessa has been offered option to continue treatment with St[facility] or to transition to hospice. Tessa states she is has not made decision as to whether she wants to continue with cancer treatment. She is weighing pros and cons of each. She understands that her condition is poor. States she is inclined to keep trying. She indicated she will make her decision tomorrow. Encouraged to speak with POA and family. Impressed that she needs to allow her friends and family to provide help and support. Psychosocial support provided. Time spent in goals of care discussions, 30 minutes Plan: Palliative support in establishing goals of care.
--- NOTE | 2017-06-22 15:12 | CP.PCM.PN ---
<Gina Ludwig - Last Filed: 06/22/17 15:04> Subjective - Date & Time of Evaluation Date of Evaluation: 06/22/17 Time of Evaluation: 08:00 - Subjective Subjective: Dr. Turk Progress Note Pt was seen and examined at bedside. Pt found to be resting comfortably. Pt states she continues to have abdominal pain and poor oral intake. No acute or adverse events overnight as per nursing staff. Pt tolerating diet this morning and moving bladder regularly. She has not had a bm overnight. Pt's abdominal tenderness is localized to RLQ. Pt denied fever, chills, shortness of breath, chest pains, vomiting, constipation, diarrhea, or urinary symptoms. Objective - Vital Signs/Intake and Output Vital Signs (last 24 hours): Temp Pulse Resp BP Pulse Ox 97.4 F L 114 H 20 105/69 99 06/22/17 09:08 06/22/17 09:08 06/22/17 09:08 06/22/17 09:08 06/22/17 09:08 Intake and Output: 06/22/17 06/22/17 06:59 18:59 Intake Total 120 Balance 120 - Medications Medications: Current Medications Docusate Sodium (Colace) 100 mg PO BID [facility] Last Admin: 06/22/17 10:46 Dose: Not Given Dronabinol (Marinol) 2.5 mg PO DAILY [facility] Last Admin: 06/22/17 10:46 Dose: Not Given Fentanyl (Duragesic) 1 patch TD Q72H [facility] Last Admin: 06/21/17 10:45 Dose: 1 patch Piperacillin Sod/Tazobactam Sod (Zosyn 3.375 In Ns 100ml) 100 mls @ 200 mls/hr IVPB Q6 [facility] PRN Reason: Protocol Stop: 06/26/17 12:01 Last Admin: 06/22/17 12:14 Dose: 200 mls/hr Chromium/Copper/Manganese/Zinc 1 ml/ Multivitamins/Vitamin C 10 ml/ Amino Acids 2,011 mls @ 83 mls/hr IV .Q24H [facility] Stop: 06/22/17 18:01 Last Admin: 06/21/17 20:53 Dose: 83 mls/hr Lisinopril (Zestril) 2.5 mg PO DAILY [facility] Last Admin: 06/12/17 10:56 Dose: 2.5 mg Morphine Sulfate (Morphine) 2 mg IVP Q4H PRN PRN Reason: Pain, severe (8-10) Last Admin: 06/22/17 14:25 Dose: 2 mg Ondansetron HCl (Zofran Inj) 4 mg IVP Q6H PRN PRN Reason: Nausea/Vomiting Last Admin: 06/21/17 08:38 Dose: 4 mg Oxycodone HCl (Oxycodone Immediate Release Tab) 5 mg PO Q4H PRN PRN Reason: Pain, moderate (4-7) Pantoprazole Sodium (Protonix Ec Tab) 40 mg PO DAILY [facility] Last Admin: 06/22/17 10:47 Dose: 40 mg Polyethylene Glycol (Miralax) 17 gm PO BID [facility] Last Admin: 06/22/17 10:47 Dose: Not Given Potassium Chloride (K-Dur 20 Meq Er Tab) 20 meq PO BRK [facility] Last Admin: 06/22/17 07:46 Dose: 20 meq Simethicone (Mylicon Liq) 80 mg PO QID PRN PRN Reason: Flatulence Last Admin: 06/14/17 17:02 Dose: 80 mg Sucralfate (Carafate Oral Susp) 1 gm PO BID [facility] Last Admin: 06/22/17 10:45 Dose: 1 gm Ursodiol (Actigall) 300 mg PO DAILY [facility] Last Admin: 06/22/17 10:45 Dose: 300 mg - Labs Labs: 06/21/17 06:00 06/22/17 11:32 PT 30.7 SECONDS (9.4-12.5) H 06/19/17 05:30 INR 2.62 (0.93-1.08) H 06/19/17 05:30 APTT 43.1 Seconds (25.1-36.5) H 06/19/17 05:30 - Constitutional Appears: No Acute Distress, Cachectic - Head Exam Head Exam: ATRAUMATIC, NORMAL INSPECTION, NORMOCEPHALIC - Eye Exam Eye Exam: EOMI, Normal appearance, PERRL Pupil Exam: NORMAL ACCOMODATION, PERRL - ENT Exam ENT Exam: Mucous Membranes Moist, Normal Exam - Respiratory Exam Respiratory Exam: Clear to Ausculation Bilateral, NORMAL BREATHING PATTERN - Cardiovascular Exam Cardiovascular Exam: REGULAR RHYTHM, +S1, +S2. absent: Murmur - GI/Abdominal Exam GI & Abdominal Exam: Soft, Tenderness (RLQ), Normal Bowel Sounds - Extremities Exam Extremities Exam: Full ROM, Normal Capillary Refill, Normal Inspection. absent : Joint Swelling, Pedal Edema - Psychiatric Exam Psychiatric exam: Depressed - Skin Skin Exam: Dry, Intact, Normal Color, Warm Assessment and Plan - Assessment and Plan (Free Text) Assessment: Assessment: Stage IV metastatic colon cancer with liver metastasis Recurrent ascites status post Aspira catheter Abdominal pain post Aspira catheter insertion Cholelithiasis with recent acute cholecystitis status managed conservatively with antibiotics GERD Hypertension Elevated liver enzymes PLAN: diet as tolerated, low albumin Encouraged to take oral fluids and Ensure supplements Pain management on Colace Zofran prn Continue Protonix 40 daily and Carafate Trend LFTs, off stivarga 2/2 transaminemia ABD US completed, CBD not dilated Intermittent drainage as per aspira drain Palliative care consulted, family conference for end of life goals and planning start appetite stimulant oncology FU Poor prognosis Discussed with Dr. Turk <Joi Turk V - Last Filed: 06/22/17 23:06> Objective - Vital Signs/Intake and Output Vital Signs (last 24 hours): Temp Pulse Resp BP Pulse Ox 97.8 F 116 H 20 102/65 98 06/22/17 16:00 06/22/17 16:00 06/22/17 16:00 06/22/17 16:00 06/22/17 16:00 Intake and Output: 06/22/17 06/23/17 18:59 06:59 Intake Total 360 Balance 360 - Medications Medications: Current Medications Docusate Sodium (Colace) 100 mg PO BID [facility] Last Admin: 06/22/17 17:57 Dose: Not Given Dronabinol (Marinol) 2.5 mg PO DAILY [facility] Last Admin: 06/22/17 10:46 Dose: Not Given Fentanyl (Duragesic) 1 patch TD Q72H [facility] Last Admin: 06/21/17 10:45 Dose: 1 patch Chromium/Copper/Manganese/Zinc 1 ml/ Multivitamins/Vitamin C 10 ml/ Amino Acids 2,011 mls @ 83 mls/hr IV .Q24H [facility] Stop: 06/24/17 18:01 Last Admin: 06/22/17 17:53 Dose: 83 mls/hr Lisinopril (Zestril) 2.5 mg PO DAILY [facility] Last Admin: 06/12/17 10:56 Dose: 2.5 mg Morphine Sulfate (Morphine) 2 mg IVP Q4H PRN PRN Reason: Pain, severe (8-10) Last Admin: 06/22/17 14:25 Dose: 2 mg Ondansetron HCl (Zofran Inj) 4 mg IVP Q6H PRN PRN Reason: Nausea/Vomiting Last Admin: 06/21/17 08:38 Dose: 4 mg Oxycodone HCl (Oxycodone Immediate Release Tab) 5 mg PO Q4H PRN PRN Reason: Pain, moderate (4-7) Pantoprazole Sodium (Protonix Ec Tab) 40 mg PO DAILY [facility] Last Admin: 06/22/17 10:47 Dose: 40 mg Polyethylene Glycol (Miralax) 17 gm PO BID [facility] Last Admin: 06/22/17 17:57 Dose: Not Given Potassium Chloride (K-Dur 20 Meq Er Tab) 20 meq PO BRK [facility] Last Admin: 06/22/17 07:46 Dose: 20 meq Simethicone (Mylicon Liq) 80 mg PO QID PRN PRN Reason: Flatulence Last Admin: 06/14/17 17:02 Dose: 80 mg Sucralfate (Carafate Oral Susp) 1 gm PO BID [facility] Last Admin: 06/22/17 17:56 Dose: 1 gm Ursodiol (Actigall) 300 mg PO DAILY [facility] Last Admin: 06/22/17 10:45 Dose: 300 mg - Labs Labs: 06/21/17 06:00 06/22/17 11:32 PT 30.7 SECONDS (9.4-12.5) H 06/19/17 05:30 INR 2.62 (0.93-1.08) H 06/19/17 05:30 APTT 43.1 Seconds (25.1-36.5) H 06/19/17 05:30 Attending/Attestation - Attestation I have personally seen and examined this patient.: Yes I have fully participated in the care of the patient.: Yes I have reviewed all pertinent clinical information, including history, physical exam and plan: Yes Notes (Text): This is an addendum to GI consult report dictated by the Clinical Psychologist.The patient was seen and examined earlier. Medical records, lab studies, imagings were reviewed. Last 24 hours events reviewed. Agreed with the above treatment plan as outlined in Clinical Psychologist 's notes the with the addition of the following 06/22/17 23:06
--- NOTE | 2017-06-22 16:58 | CP.PCM.PN ---
Subjective - Date & Time of Evaluation Date of Evaluation: 06/22/17 Time of Evaluation: 10:25 - Subjective Subjective: No fevers, not in distress, occasional abdominal pain. Objective - Vital Signs/Intake and Output Vital Signs (last 24 hours): Temp Pulse Resp BP Pulse Ox 97.4 F L 117 H 20 110/73 99 06/21/17 16:46 06/21/17 16:46 06/21/17 16:46 06/21/17 16:46 06/21/17 16:46 Intake and Output: 06/21/17 06/21/17 06:59 18:59 Intake Total 1330 Output Total 0 Balance 1330 - Medications Medications: Current Medications Docusate Sodium (Colace) 100 mg PO BID [facility] Last Admin: 06/21/17 10:42 Dose: Not Given Dronabinol (Marinol) 2.5 mg PO DAILY [facility] Last Admin: 06/21/17 15:13 Dose: Not Given Fentanyl (Duragesic) 1 patch TD Q72H [facility] Last Admin: 06/21/17 10:45 Dose: 1 patch Piperacillin Sod/Tazobactam Sod (Zosyn 3.375 In Ns 100ml) 100 mls @ 200 mls/hr IVPB Q6 [facility] PRN Reason: Protocol Stop: 06/26/17 12:01 Last Admin: 06/21/17 15:14 Dose: Not Given Chromium/Copper/Manganese/Zinc 1 ml/ Multivitamins/Vitamin C 10 ml/ Amino Acids 2,011 mls @ 83 mls/hr IV .Q24H [facility] Stop: 06/22/17 18:01 Last Admin: 06/20/17 20:31 Dose: 83 mls/hr Lisinopril (Zestril) 2.5 mg PO DAILY [facility] Last Admin: 06/12/17 10:56 Dose: 2.5 mg Megestrol Acetate (Megace) 200 mg PO DAILY [facility] Stop: 06/22/17 05:00 Last Admin: 06/21/17 15:14 Dose: Not Given Morphine Sulfate (Morphine) 2 mg IVP Q4H PRN PRN Reason: Pain, severe (8-10) Last Admin: 06/21/17 16:36 Dose: 2 mg Ondansetron HCl (Zofran Inj) 4 mg IVP Q6H PRN PRN Reason: Nausea/Vomiting Last Admin: 06/21/17 08:38 Dose: 4 mg Oxycodone HCl (Oxycodone Immediate Release Tab) 5 mg PO Q4H PRN PRN Reason: Pain, moderate (4-7) Pantoprazole Sodium (Protonix Ec Tab) 40 mg PO DAILY [facility] Last Admin: 06/21/17 10:42 Dose: Not Given Polyethylene Glycol (Miralax) 17 gm PO BID [facility] Last Admin: 06/21/17 10:42 Dose: Not Given Potassium Chloride (K-Dur 20 Meq Er Tab) 20 meq PO BRK [facility] Last Admin: 06/21/17 08:40 Dose: 20 meq Simethicone (Mylicon Liq) 80 mg PO QID PRN PRN Reason: Flatulence Last Admin: 06/14/17 17:02 Dose: 80 mg Sucralfate (Carafate Oral Susp) 1 gm PO BID [facility] Last Admin: 06/21/17 10:42 Dose: Not Given Ursodiol (Actigall) 300 mg PO DAILY [facility] Last Admin: 06/21/17 10:42 Dose: Not Given - Labs Labs: 06/21/17 06:00 06/21/17 06:00 PT 30.7 SECONDS (9.4-12.5) H 06/19/17 05:30 INR 2.62 (0.93-1.08) H 06/19/17 05:30 APTT 43.1 Seconds (25.1-36.5) H 06/19/17 05:30 - Constitutional Appears: Chronically Ill - Head Exam Head Exam: NORMAL INSPECTION - ENT Exam ENT Exam: Mucous Membranes Moist - Neck Exam Neck Exam: absent: Meningismus - Respiratory Exam Respiratory Exam: Decreased Breath Sounds - Cardiovascular Exam Cardiovascular Exam: +S1, +S2 - GI/Abdominal Exam GI & Abdominal Exam: Soft. absent: Tenderness Assessment and Plan - Assessment and Plan (Free Text) Plan: Assessment Systemic inflammatory response syndrome, consider due to malignancy, no evidence of SBP; S/P drainage of ascitic via abdominal catheter history of acute cholecystitis, S/P conservative therapy with antibiotics colonic malignancy with liver metastases with ascites S/P paracentesis endometriosis uterine fibroids S/P removal Plan ascitic fluid culture is negative, ascitic fluid neutrophils is less than 250 - will d/c antibiotics and observe overall prognosis is poor
[2017-06-22] MEDS: TRACE ELEMENTS IV SCH (17:53)
[2017-06-22] MEDS: MULTIVITAMIN IV SCH (17:53)
[2017-06-22] MEDS: DEXT IV SCH (17:53)
[2017-06-22] MEDS: [UNRECOGNIZED DRUG - OTHER] IV SCH (17:53)
[2017-06-22] MEDS: AMINO IV SCH (17:53)
[2017-06-23] MEDS: Morphine 5 MG/ML SYRINGE IVP PRN (02:57)
[2017-06-23 05:51] LABS: BASO # 0.03 K/mm3 (0.0-2.0); BASO % 0.1 % (0.0-3.0); EOS # 0.1 (0.0-0.7); EOS % 0.3 % (1.5-5.0); GRAN # 18.92 (1.4-6.5); HEMOGLOBIN 11.8 g/dL (12.0-16.0); LYMPH # 1.2 (1.2-3.4); LYMPH % 5.3 % (22.0-35.0); MEAN CELL VOLUME 83.4 fl (80.0-105.0); MEAN CORPUSCULAR HEMOGLOBIN 28.4 pg (25.0-35.0); MONO # 2.6 (0.1-0.6); MONO % 11.3 % (1.0-6.0); PLATELET COUNT 64 10^3/uL (120.0-450.0); RBC 4.16 10^6/uL (3.5-6.1); RED CELL DISTRIBUTION WIDTH 20.4 % (11.5-14.5); WHITE BLOOD COUNT 22.8 10^3/ul (4.5-11.0)
[2017-06-23 06:09] LABS: ALB/GLOB RATIO 0.6 (1.1-1.8); ALBUMIN 2.5 g/dL (3.0-4.8); ALT/SGPT 56 U/L (7-56); AST/SGOT 170 U/L (14-36); BLOOD UREA NITROGEN 56 mg/dL (7-21); CALCIUM 7.1 mg/dL (8.4-10.5); GFR AFRICAN-AMERICAN > 60; GFR NON-AFRICAN AMERICAN 50
[2017-06-23 06:11] LABS: INR 1.96 (0.93-1.08); PARTIAL THROMBOPLASTIN TIME 41.2 Seconds (25.1-36.5); PROTHROMBIN TIME 22.8 SECONDS (9.4-12.5)
[2017-06-23] MEDS: Morphine 2 mg/ml ISec IVP PRN ×4 (06:27→22:24)
[2017-06-23] MEDS: Potassium Chloride 20 mEq ER Tab PO SCH (09:37)
[2017-06-23] MEDS: Pantoprazole 40 mg EC Tab PO SCH (09:37)
[2017-06-23] MEDS: POLYETHYLENE GLYCOL 3350 17 GM/Dose PACKET PO SCH ×2 (09:38→17:53)
[2017-06-23] MEDS ORDERED: Magnesium Sulfate 1 gm in D5W 1 GM/100 ML BAG IVPB ONE (13:17)
--- NOTE | 2017-06-23 13:39 | CP.PCM.PN ---
<Gina Ludwig - Last Filed: 06/23/17 13:39> Subjective - Date & Time of Evaluation Date of Evaluation: 06/23/17 Time of Evaluation: 07:00 - Subjective Subjective: Dr Turk GI Progress Note Dr. Turk Progress Note Pt was seen and examined at bedside. Pt found to be resting comfortably. Pt states she continues to have abdominal pain and poor oral intake. No acute or adverse events overnight as per nursing staff. Pt tolerating diet this morning and moving bladder regularly. Pt's abdominal tenderness is localized to RLQ and is intermittent now in frequency. Pt denied fever, chills, shortness of breath, chest pains, vomiting, constipation, diarrhea, or urinary symptoms. Objective - Vital Signs/Intake and Output Vital Signs (last 24 hours): Temp Pulse Resp BP Pulse Ox 97.9 F 113 H 20 98/60 L 98 06/23/17 08:43 06/23/17 08:43 06/23/17 08:43 06/23/17 08:43 06/23/17 08:43 Intake and Output: 06/23/17 06/23/17 06:59 18:59 Intake Total 1356 Balance 1356 - Medications Medications: Current Medications Docusate Sodium (Colace) 100 mg PO BID [facility] Last Admin: 06/23/17 09:38 Dose: 100 mg Dronabinol (Marinol) 2.5 mg PO DAILY [facility] Last Admin: 06/23/17 09:37 Dose: 2.5 mg Fentanyl (Duragesic) 1 patch TD Q72H [facility] Last Admin: 06/21/17 10:45 Dose: 1 patch Chromium/Copper/Manganese/Zinc 1 ml/ Multivitamins/Vitamin C 10 ml/ Amino Acids 2,011 mls @ 83 mls/hr IV .Q24H [facility] Stop: 06/24/17 18:01 Last Admin: 06/22/17 17:53 Dose: 83 mls/hr Magnesium Sulfate/Dextrose (Magnesium Sulfate 1 Gm/100 Ml D5w) 1 gm in 100 mls @ 100 mls/hr IVPB ONCE ONE Stop: 06/23/17 14:16 Lisinopril (Zestril) 2.5 mg PO DAILY [facility] Last Admin: 06/12/17 10:56 Dose: 2.5 mg Morphine Sulfate (Morphine) 2 mg IVP Q4H PRN PRN Reason: Pain, severe (8-10) Stop: 06/24/17 16:27 Last Admin: 06/23/17 11:51 Dose: 2 mg Ondansetron HCl (Zofran Inj) 4 mg IVP Q6H PRN PRN Reason: Nausea/Vomiting Last Admin: 06/23/17 06:27 Dose: 4 mg Oxycodone HCl (Oxycodone Immediate Release Tab) 5 mg PO Q4H PRN PRN Reason: Pain, moderate (4-7) Pantoprazole Sodium (Protonix Ec Tab) 40 mg PO DAILY [facility] Last Admin: 06/23/17 09:37 Dose: 40 mg Polyethylene Glycol (Miralax) 17 gm PO BID [facility] Last Admin: 06/23/17 09:38 Dose: 17 gm Potassium Chloride (K-Dur 20 Meq Er Tab) 20 meq PO BRK [facility] Last Admin: 06/23/17 09:37 Dose: 20 meq Simethicone (Mylicon Liq) 80 mg PO QID PRN PRN Reason: Flatulence Last Admin: 06/14/17 17:02 Dose: 80 mg Sucralfate (Carafate Oral Susp) 1 gm PO BID [facility] Last Admin: 06/22/17 17:56 Dose: 1 gm Ursodiol (Actigall) 300 mg PO DAILY [facility] Last Admin: 06/23/17 09:37 Dose: 300 mg - Labs Labs: 06/23/17 05:40 06/23/17 05:40 PT 22.8 SECONDS (9.4-12.5) H 06/23/17 05:40 INR 1.96 (0.93-1.08) H 06/23/17 05:40 APTT 41.2 Seconds (25.1-36.5) H 06/23/17 05:40 - Constitutional Appears: No Acute Distress, Cachectic - Head Exam Head Exam: ATRAUMATIC, NORMAL INSPECTION, NORMOCEPHALIC - Eye Exam Eye Exam: EOMI, Normal appearance, PERRL Pupil Exam: NORMAL ACCOMODATION, PERRL - ENT Exam ENT Exam: Mucous Membranes Moist, Normal Exam - Neck Exam Neck Exam: Full ROM, Normal Inspection. absent: Lymphadenopathy - Respiratory Exam Respiratory Exam: Clear to Ausculation Bilateral, NORMAL BREATHING PATTERN - Cardiovascular Exam Cardiovascular Exam: REGULAR RHYTHM, +S1, +S2. absent: Murmur - GI/Abdominal Exam GI & Abdominal Exam: Soft, Normal Bowel Sounds. absent: Tenderness Additional comments: RLQ drain in place - Neurological Exam Neurological Exam: Alert, Awake, CN II-XII Intact, Oriented x3 - Psychiatric Exam Psychiatric exam: Normal Affect, Normal Mood - Skin Skin Exam: Dry, Intact, Normal Color, Warm Assessment and Plan - Assessment and Plan (Free Text) Assessment: Assessment: Stage IV metastatic colon cancer with liver metastasis Recurrent ascites status post Aspira catheter Abdominal pain post Aspira catheter insertion Cholelithiasis with recent acute cholecystitis status managed conservatively with antibiotics GERD Hypertension Elevated liver enzymes Luekocytosis PLAN: Ascitic fluid negative, PMN<250, ID on board, Dr. Rowley, dc antibiotics Leukocytosis 2/2 probably from malig diet as tolerated, low albumin Encouraged to take oral fluids and Ensure supplements Pain management on Colace Zofran prn Continue Protonix 40 daily and Carafate Trend LFTs, off stivarga 2/2 transaminemia ABD US completed, CBD not dilated Intermittent drainage as per aspira drain Palliative care consulted, family conference for end of life goals and planning start appetite stimulant oncology FU Poor prognosis Discussed with Dr. Turk <Joi Turk V - Last Filed: 06/23/17 23:54> Objective - Vital Signs/Intake and Output Vital Signs (last 24 hours): Temp Pulse Resp BP Pulse Ox 98 F 114 H 22 108/67 98 06/23/17 16:00 06/23/17 16:00 06/23/17 16:00 06/23/17 16:00 06/23/17 16:00 Intake and Output: 06/23/17 06/24/17 18:59 06:59 Intake Total 725 540 Balance 725 540 - Medications Medications: Current Medications Docusate Sodium (Colace) 100 mg PO BID [facility] Last Admin: 06/23/17 17:53 Dose: Not Given Dronabinol (Marinol) 2.5 mg PO DAILY [facility] Last Admin: 06/23/17 09:37 Dose: 2.5 mg Fentanyl (Duragesic) 1 patch TD Q72H [facility] Last Admin: 06/21/17 10:45 Dose: 1 patch Home Med (Home Med) 2 unit PO DAILY [facility] Chromium/Copper/Manganese/Zinc 1 ml/ Multivitamins/Vitamin C 10 ml/ Amino Acids 2,011 mls @ 83 mls/hr IV .Q24H [facility] Stop: 06/24/17 18:01 Last Admin: 06/23/17 17:53 Dose: 83 mls/hr Lisinopril (Zestril) 2.5 mg PO DAILY [facility] Last Admin: 06/12/17 10:56 Dose: 2.5 mg Morphine Sulfate (Morphine) 2 mg IVP Q4H PRN PRN Reason: Pain, severe (8-10) Stop: 06/24/17 16:27 Last Admin: 06/23/17 22:24 Dose: 2 mg Ondansetron HCl (Zofran Inj) 4 mg IVP Q6H PRN PRN Reason: Nausea/Vomiting Last Admin: 06/23/17 22:24 Dose: 4 mg Oxycodone HCl (Oxycodone Immediate Release Tab) 5 mg PO Q4H PRN PRN Reason: Pain, moderate (4-7) Pantoprazole Sodium (Protonix Ec Tab) 40 mg PO DAILY [facility] Last Admin: 06/23/17 09:37 Dose: 40 mg Polyethylene Glycol (Miralax) 17 gm PO BID [facility] Last Admin: 06/23/17 17:53 Dose: Not Given Potassium Chloride (K-Dur 20 Meq Er Tab) 20 meq PO BRK [facility] Last Admin: 06/23/17 09:37 Dose: 20 meq Simethicone (Mylicon Liq) 80 mg PO QID PRN PRN Reason: Flatulence Last Admin: 06/14/17 17:02 Dose: 80 mg Sucralfate (Carafate Oral Susp) 1 gm PO BID [facility] Last Admin: 06/23/17 18:59 Dose: Not Given Ursodiol (Actigall) 300 mg PO DAILY [facility] Last Admin: 06/23/17 09:37 Dose: 300 mg - Labs Labs: 06/23/17 05:40 06/23/17 05:40 PT 22.8 SECONDS (9.4-12.5) H 06/23/17 05:40 INR 1.96 (0.93-1.08) H 06/23/17 05:40 APTT 41.2 Seconds (25.1-36.5) H 06/23/17 05:40 Attending/Attestation - Attestation I have personally seen and examined this patient.: Yes I have fully participated in the care of the patient.: Yes I have reviewed all pertinent clinical information, including history, physical exam and plan: Yes Notes (Text): This is an addendum to GI consult report dictated by the Crew Leader Gluing.The patient was seen and examined earlier. Medical records, lab studies, imagings were reviewed. Last 24 hours events reviewed. Agreed with the above treatment plan as outlined in Crew Leader Gluing 's notes the with the addition of the following 06/23/17 23:54
[2017-06-23] MEDS ORDERED: STIVARGA 40 MG PO SCH (15:45)
[2017-06-23] MEDS ORDERED: STIVARGA PO ONE (16:13)
[2017-06-23] MEDS: AMINO IV SCH (17:53)
[2017-06-23] MEDS: DEXT IV SCH (17:53)
[2017-06-23] MEDS: [UNRECOGNIZED DRUG - OTHER] IV SCH (17:53)
[2017-06-23] MEDS: MULTIVITAMIN IV SCH (17:53)
[2017-06-23] MEDS: TRACE ELEMENTS IV SCH (17:53)
[2017-06-23] MEDS: Sucralfate 1 gm/10 ml Oral Susp UD PO SCH (18:59)
--- NOTE | 2017-06-23 22:37 | PN ---
DATE: 06/23/2017 SUBJECTIVE: Patient is seen in bed, in no acute distress, nontoxic. OBJECTIVE: VITAL SIGNS: Temperature is 97, blood pressure is 98/60, respiratory rate of 20, heart rate of 113. HEENT: Unremarkable. NECK: Supple. LUNGS: Have decreased breath sounds. HEART: Normal S1, S2. ABDOMEN: Soft, nontender. LABORATORY EXAMINATION: Reveals a white count of 22,000, hemoglobin 11, platelets of 64. Chemistries reveals a BUN of 56, creatinine of 1.1. Procalcitonin is 1.76. Urinalysis is noted and serology is noted. Influenza is negative. There yeast in the urine and blood cultures are negative. ASSESSMENT AND PLAN: A 61-year-old female who was seen this morning, who appears chronically ill, debilitated with systemic inflammatory response syndrome secondary to her malignancy. No evidence of spontaneous bacterial peritonitis, status post drainage of ascitic fluid by abdominal catheter and with colon cancer with liver metastasis and currently off of antibiotics. Patient continues to deteriorate and overall prognosis is quite poor. Dorian Solis MD
--- NOTE | 2017-06-23 23:52 | PN ---
DATE: SUBJECTIVE: The patient is currently seen lying supine in bed on 3R. She appears to be in some mild distress secondary to abdominal distention. She states that she had ascitic fluid removed from the PD catheter yesterday. She continues on hyperalimentation. Of note, her phosphorus level was high phosphorus on hyperal was 9.2. Magnesium level was 1.5, BUN is 56 with a creatinine of 1.1. CO2 level remains stable at 17. MEDICATIONS: Medication list reviewed. The patient is currently on Actigall, Carafate, hyperalimentation, Colace, Duragesic, Stivarga, potassium, Marinol, MiraLax, morphine, Mylicon, oxycodone, Protonix, and Zofran p.r.n. OBJECTIVE: INTAKE/OUTPUT: Intake 1356, output not charted. VITAL SIGNS: Blood pressure 108/67, pulse 114, temperature 98, respiratory rate 20 with a pulse ox of 98%. HEENT: Normocephalic, atraumatic. Conjunctivae are pink. Sclerae are anicteric. NECK: Supple. No neck vein distention. CHEST: Clear to auscultation and percussion. No rales, rhonchi or wheezing. CARDIOVASCULAR: Shows a regular rate and rhythm without murmurs, rubs or gallops. ABDOMEN: Distended. Positive ascites. The patient has a PD catheter in her right lower quadrant. No rebound, guarding or palpable masses. EXTREMITIES: Show no Significant edema of her lower extremity. No cyanosis or clubbing. LABORATORY DATA AND IMAGING: CBC: White blood cell count 22.8, hemoglobin 11.8 with a platelet count of 64,000. Chemistries show sodium 137, potassium 3.9, chloride 104, CO2 of 17. BUN remains elevated at 56. Creatinine is 1.1. Glucose is 167. Calcium is 7.1, corrected calcium is 8.3 for an albumin of 2.5. Phosphorus level was extremely high at 9.2, possibly secondary to increased phosphorus from hyperalimentation. Magnesium level was borderline low at 1.5. Bilirubin is 12.6. Liver enzymes remain elevated. Microbiology, Urine are positive for yeast. ASSESSMENT: 1. Prerenal azotemia in the setting of hyperalimentation in the setting of renal hypoperfusion and in the setting of past diuretic therapy. This remains stable and with a creatinine of 1.1. This is the least of her problems. 2. Hyponatremia. Sodium level is 137. This has resolved. The patient had a depletional hyponatremia with a low urine sodium. 3. History of hypertension. Blood pressure is low and lisinopril was placed on hold. 4. Stage IV colon cancer with liver metastasis. Patient receiving chemotherapy as per Dr. Pretty. 5. History of ascites. The patient will intermittently have her PD catheter opened to relieve the pressure from the ascitic fluid. 6. Mild hypophosphatemia. Phosphorus content of her hyperalimentation was significantly lowered. Perhaps this was a sampling error. 7. Hypomagnesemia. The patient will continue on magnesium supplementation through the hyperalimentation. PLAN: 1. Continue hyperalimentation. Continue to adjust the electrolytes on an as-needed basis pending her labs. 2. Continue to use her PD catheter to decompress her abdomen secondary to buildup of ascites. 3. Continue to monitor accurate Is and Os. 4. Continue off blood pressure medication. Yang Cuellar MD
--- NOTE | 2017-06-24 01:41 | PN ---
DATE: 06/23/2017 LOCATION: Patient is in room 364, bed 2. PROBLEMS: This is a 61-year-old female with metastatic progressive carcinoma of the colon with progressive intrahepatic cholestasis from progressive metastatic disease in the liver along with cholelithiasis secondary to compression of the cystic duct along with cholelithiasis within the gallbladder itself with a progressively rising total bilirubin up to 8.2 along with elevated liver enzymes. She is currently in the hospital, receiving IV PPN with no appetite and having intermittent drainage of ascitic fluid from the Aspira catheter in the right side of the upper outer quadrant of the abdomen. Patient is currently taking her own chemotherapy Stivarga, which is a multikinase inhibitor and a VEGF inhibitor and a dual action drug against metastatic progressive colon cancer. SUBJECTIVE: Patient is examined at bedside. She is resting comfortably. Pain on scale of 0 to 10 is at least 4. Most of the pain is in the right upper quadrant area. She continues to have abdominal pain and poor intake. No nausea or vomiting today. Earlier last night, the patient had meat. She is tolerating the diet this morning and had a bowel movement as well. Patient complains of abdominal tenderness, which is localized to the right upper quadrant and intermittent in frequency. Denies any history of fevers, chills, shortness of breath, chest pains, or constipation. No diarrhea. No urinary complaints. PHYSICAL EXAMINATION: GENERAL: Patient is examined in bed. Patient appears to be ill looking. Temporal muscle wasting is noted. Patient is cachectic. VITAL SIGNS: T-max of 97.9, pulse is 113, respirations 20, blood pressure is 98/60, pulse ox is 98% on room air. HEENT: Head: Normocephalic, atraumatic. Sclerae is icteric. Conjunctivae pale. Pupils are equally reactive to light and accommodation. Examination of the oropharynx reveals no oropharyngeal lesions. Tongue is dry. No oropharyngeal lesions are noted. No fungal infections noted. NECK: Supple. There is no adenopathy. LUNGS: Reveal decreased breath sounds in the bases posteriorly. CARDIOVASCULAR SYSTEM: Reveals PMI to be in the fifth intercostal space, inside the midclavicular line. S1 and S2 are normal. No gallop or murmur is heard. ABDOMEN: Reveals progressive distention with an Aspira catheter in the right upper quadrant. Liver is palpable. Right upper quadrant tenderness is noted. No rebound, rigidity, or guarding is noted. Bowel sounds are present. EXTREMITIES: Reveals ankle edema. NEUROLOGIC: Reveals higher functions to be normal. No focal deficits are noted. SKIN: Dry and intact. Patient is icteric at this point in time. LABORATORY DATA: Patient's labs were reviewed. White count is 22,000, hemoglobin 11.8, hematocrit 34, platelet count 64,000. Sodium is 137, K is 3.9, chloride is 104, CO2 is 17, BUN is 56, creatinine is 1.1, blood sugar is 167. PT/INR reveals a INR of 1.96. Patient is status post over the weekend. MEDICATIONS: Patient's medications are reviewed. She is on Colace 100 b.i.d., Marinol 2.5 mg p.o. b.i.d., fentanyl 50 mcg patch q. 72 hours. She is on IV nutrition at 83 mL/hour, 2000 mL over 24 hours. Patient received one dose of magnesium sulfate today to correct her hypomagnesemia. Lisinopril 2.5 mg daily, morphine 2 mg IV q.4h. p.r.n. for pain, Zofran 4 mg IV q. 6 hours p.r.n. for nausea, oxycodone immediate release 5 mg q.4h. p.r.n. for moderate pain, Protonix 40 mg p.o. daily, MiraLax 17 g p.o. b.i.d., K-Dur 20 mEq p.o. daily, Mylicon 80 mg q.i.d. p.r.n., Carafate 1 g p.o. b.i.d., Actigall 300 mg p.o. daily. ASSESSMENT NOTES AND PLAN: Patient has progressive stage IV metastatic colon cancer with intraabdominal carcinomatosis, progressive liver metastasis with progressive intrahepatic cholestasis causing jaundice. Patient is currently on Stivarga and IV PPN. Overall, prognosis is guarded. Patient has signed a form for do not resuscitate/do not intubate, which I request to be put in the chart. Patient has been talking to the palliative care nurse while they have been embarking on aggressive supportive medical care at this point. We will speak to Palliative Care to see if any decisions would be made over the next 24 to 48 hours. We will request for at least do not resuscitate/do not intubate over the next 48 hours. Routine post-exam instructions have been given to the patient. Time spent with the patient greater than 45 minutes. Please make a note this was medically necessary and appropriate visit for this patient. Labs and blood work have been requested for the a.m. Thalia Pretty MD
[2017-06-24] MEDS: Morphine 2 mg/ml ISec IVP PRN ×2 (03:23→07:45)
[2017-06-24 06:29] LABS: HEMOGLOBIN 10.7 g/dL (12.0-16.0); MEAN CELL VOLUME 82.5 fl (80.0-105.0); MEAN CORPUSCULAR HEMOGLOBIN 27.9 pg (25.0-35.0); MEAN CORPUSCULAR HGB CONC 33.9 g/dl (31.0-37.0); RBC 3.83 10^6/uL (3.5-6.1); RED CELL DISTRIBUTION WIDTH 20.5 % (11.5-14.5)
[2017-06-24 07:04] LABS: WHITE BLOOD COUNT 25.6 10^3/ul (4.5-11.0)
[2017-06-24 07:12] LABS: ALB/GLOB RATIO 0.6 (1.1-1.8); ALBUMIN 2.5 g/dL (3.0-4.8); CALCIUM 6.2 mg/dL (8.4-10.5)
--- NOTE | 2017-06-24 08:27 | CP.PCM.PN ---
<Calvin Dill - Last Filed: 06/25/17 07:00> Subjective - Date & Time of Evaluation Date of Evaluation: 06/24/17 Time of Evaluation: 07:00 - Subjective Subjective: Calvin Dill D.O. 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 Patient was seen and examined at bedside. Unable to get any sleep overnight due to pain. Feeling worse. Still unable to tolerate much PO. Objective - Vital Signs/Intake and Output Vital Signs (last 24 hours): Temp Pulse Resp BP Pulse Ox 98 F 114 H 22 108/67 98 06/23/17 16:00 06/23/17 16:00 06/23/17 16:00 06/23/17 16:00 06/23/17 16:00 Intake and Output: 06/24/17 06/24/17 06:59 18:59 Intake Total 540 Balance 540 - Medications Medications: Current Medications Docusate Sodium (Colace) 100 mg PO BID [facility] Last Admin: 06/23/17 17:53 Dose: Not Given Dronabinol (Marinol) 2.5 mg PO DAILY [facility] Last Admin: 06/23/17 09:37 Dose: 2.5 mg Fentanyl (Duragesic) 1 patch TD Q72H [facility] Home Med (Home Med) 2 unit PO DAILY [facility] Chromium/Copper/Manganese/Zinc 1 ml/ Multivitamins/Vitamin C 10 ml/ Amino Acids 2,011 mls @ 83 mls/hr IV .Q24H [facility] Stop: 06/27/17 17:59 Last Admin: 06/23/17 17:53 Dose: 83 mls/hr Lisinopril (Zestril) 2.5 mg PO DAILY [facility] Last Admin: 06/12/17 10:56 Dose: 2.5 mg Morphine Sulfate (Morphine) 2 mg IVP Q4H PRN PRN Reason: Pain, severe (8-10) Stop: 06/24/17 16:27 Last Admin: 06/24/17 07:45 Dose: 2 mg Ondansetron HCl (Zofran Inj) 4 mg IVP Q6H PRN PRN Reason: Nausea/Vomiting Last Admin: 06/24/17 07:45 Dose: 4 mg Oxycodone HCl (Oxycodone Immediate Release Tab) 5 mg PO Q4H PRN PRN Reason: Pain, moderate (4-7) Pantoprazole Sodium (Protonix Ec Tab) 40 mg PO DAILY [facility] Last Admin: 06/23/17 09:37 Dose: 40 mg Polyethylene Glycol (Miralax) 17 gm PO BID [facility] Last Admin: 06/23/17 17:53 Dose: Not Given Potassium Chloride (K-Dur 20 Meq Er Tab) 20 meq PO BRK [facility] Last Admin: 06/23/17 09:37 Dose: 20 meq Simethicone (Mylicon Liq) 80 mg PO QID PRN PRN Reason: Flatulence Last Admin: 06/14/17 17:02 Dose: 80 mg Sucralfate (Carafate Oral Susp) 1 gm PO BID [facility] Last Admin: 06/23/17 18:59 Dose: Not Given Ursodiol (Actigall) 300 mg PO DAILY [facility] Last Admin: 06/23/17 09:37 Dose: 300 mg - Labs Labs: 06/24/17 06:00 06/24/17 06:00 PT 22.8 SECONDS (9.4-12.5) H 06/23/17 05:40 INR 1.96 (0.93-1.08) H 06/23/17 05:40 APTT 41.2 Seconds (25.1-36.5) H 06/23/17 05:40 - Constitutional Appears: No Acute Distress, Chronically Ill, Cachectic - Head Exam Head Exam: ATRAUMATIC, NORMOCEPHALIC - Eye Exam Eye Exam: EOMI, PERRL, scleral icterus - ENT Exam ENT Exam: Mucous Membranes Dry, Normal Oropharynx - Neck Exam Neck Exam: Normal Inspection - Respiratory Exam Respiratory Exam: Clear to Ausculation Bilateral. absent: Rhonchi, Wheezes - Cardiovascular Exam Cardiovascular Exam: RRR, +S1, +S2 - GI/Abdominal Exam GI & Abdominal Exam: Distended, Aspira cathter in place, Soft, Normal Bowel Sounds, + Fluid wave - Extremities Exam Extremities Exam: Pedal Edema (+1). 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 and liver metastases who presented with pain and nausea after aspira cathter insertion Plan: Stave IV colorectal CA with abdominal carcinomatosis and liver metastases Ascites s/p aspira catheter for intermittent drainage Hyperbilirubinemia likely 2/2 extensive liver metastases, cholestatic - worsening Transaminemia - improving Hyponatremia - resolved Dehydration with associated OMAR Hypocalcemia Hypomagnesemeia Anorexia and cachexia Worsening leukocytosis HTN Increased fentanyl patch Discussed with nephro, will be adjusting hyper-al phos/mag contents On stivarga after extensive discussion about how this is salvage therapy at this point and may worsen her cholestasis GI following, recs appreciated Given calcium gluconate x1 and 2g Mag x1 Continue intermittent drainage from aspira catheter Palliative/Hospice following, discussions of goals of care underway Very poor prognosis Patient was seen and examined and case was discussed with attending physician <Thalia Pretty P - Last Filed: 06/26/17 21:37> Objective - Vital Signs/Intake and Output Vital Signs (last 24 hours): Temp Pulse Resp BP Pulse Ox 98 F 102 H 18 106/64 97 06/26/17 16:00 06/26/17 16:00 06/26/17 16:00 06/26/17 16:00 06/26/17 16:00 - Medications Medications: Current Medications Docusate Sodium (Colace) 100 mg PO BID [facility] Last Admin: 06/26/17 18:18 Dose: 100 mg Dronabinol (Marinol) 2.5 mg PO DAILY [facility] Last Admin: 06/26/17 09:42 Dose: 2.5 mg Fentanyl (Duragesic) 1 patch TD Q72H [facility] Last Admin: 06/24/17 09:44 Dose: 1 patch Home Med (Home Med) 2 unit PO DAILY [facility] Last Admin: 06/26/17 09:46 Dose: Not Given Chromium/Copper/Manganese/Zinc 1 ml/ Multivitamins/Vitamin C 10 ml/ Insulin Human Regular 10 units/ Amino Acids 2,011.1 mls @ 83 mls/hr IV .Q24H [facility] Last Admin: 06/26/17 18:18 Dose: 83 mls/hr Lactulose (Enulose) 10 gm PO BID [facility] Last Admin: 06/26/17 18:20 Dose: Not Given Morphine Sulfate (Morphine) 2 mg IVP Q2H PRN PRN Reason: Pain, severe (8-10) Last Admin: 06/26/17 09:43 Dose: 2 mg Nystatin (Nystatin Oral Susp) 5 ml PO QID [facility] Last Admin: 06/26/17 18:18 Dose: 5 ml Ondansetron HCl (Zofran Inj) 4 mg IVP Q6H PRN PRN Reason: Nausea/Vomiting Last Admin: 06/26/17 06:31 Dose: 4 mg Oxycodone HCl (Oxycodone Immediate Release Tab) 5 mg PO Q4H PRN PRN Reason: Pain, moderate (4-7) Pantoprazole Sodium (Protonix Ec Tab) 40 mg PO DAILY [facility] Last Admin: 06/26/17 09:43 Dose: 40 mg Polyethylene Glycol (Miralax) 17 gm PO BID [facility] Last Admin: 06/26/17 18:19 Dose: Not Given Potassium Chloride (K-Dur 20 Meq Er Tab) 20 meq PO BRK [facility] Last Admin: 06/26/17 09:42 Dose: 20 meq Simethicone (Mylicon Liq) 80 mg PO QID PRN PRN Reason: Flatulence Last Admin: 06/14/17 17:02 Dose: 80 mg Sucralfate (Carafate Oral Susp) 1 gm PO BID [facility] Last Admin: 06/26/17 18:20 Dose: Not Given Ursodiol (Actigall) 300 mg PO DAILY [facility] Last Admin: 06/26/17 09:42 Dose: 300 mg - Labs Labs: 06/26/17 06:00 06/26/17 06:00 PT 22.8 SECONDS (9.4-12.5) H 06/23/17 05:40 INR 1.96 (0.93-1.08) H 06/23/17 05:40 APTT 41.2 Seconds (25.1-36.5) H 06/23/17 05:40 Attending/Attestation - Attestation I have personally seen and examined this patient.: Yes I have fully participated in the care of the patient.: Yes I have reviewed all pertinent clinical information, including history, physical exam and plan: Yes
[2017-06-24] MEDS ORDERED: Magnesium Sulfate 2 GM in Sodium Chloride 0.9% 100 ML IVPB ONE (09:29)
[2017-06-24] MEDS: Pantoprazole 40 mg EC Tab PO SCH (09:44)
[2017-06-24] MEDS: Sucralfate 1 gm/10 ml Oral Susp UD PO SCH ×2 (09:44→17:18)
[2017-06-24] MEDS: POLYETHYLENE GLYCOL 3350 17 GM/Dose PACKET PO SCH ×2 (09:45→17:18)
[2017-06-24] MEDS: Potassium Chloride 20 mEq ER Tab PO SCH (09:45)
[2017-06-24] MEDS: STIVARGA 40 MG PO SCH (10:15)
--- NOTE | 2017-06-24 11:28 | PN ---
DATE: 06/24/2017 SUBJECTIVE: The patient is seen lying in bed. She is tachypneic. She reports she had pain in her abdomen last night. She denies any diarrhea. She denies any nausea or vomiting. PHYSICAL EXAMINATION: GENERAL: Elderly lady, sitting in bed. VITAL SIGNS: Blood pressure 107/69, heart rate 116, respiratory rate 20, temperature 98.1. HEENT: Normocephalic, atraumatic. NECK: Supple, no JVD. LUNGS: Bilateral equal air entry, decreased breath sounds at bases. CARDIAC: S1 and S2, regular rate and rhythm, no murmur, no rub. ABDOMEN: Distended, soft, bowel sounds present, tenderness in the right side, positive peritoneal catheter. EXTREMITIES: 2+ pitting edema. INTAKE AND OUTPUT: Not charted. LABORATORY DATA: WBC 25.6, hemoglobin 10.7, hematocrit 32, platelets 62. Sodium 134, potassium 4.1, chloride 100, CO2 of 18, BUN 70, creatinine 1.4, glucose 136, calcium 6.2, phosphorus 13, magnesium 1.6, total bili 16.5, albumin 2.5. CURRENT MEDICATIONS: Actigall, calcium gluconate 1 g to be given now, Carafate, 01:26, Colace, Duragesic, potassium 20 mEq, magnesium sulfate 2 g to be given now, Marinol, MiraLax, morphine, Mylicon, oxycodone, Protonix, Zestril, Zofran, hyperal. ASSESSMENT AND PLAN: 1. Severe hyperphosphatemia, partly iatrogenic. 2. Severe hypocalcemia. 3. Metastatic colon cancer with liver metastasis, progressive disease. 4. Recurrent ascites. 5. Leukocytosis/tachycardia/hypotension, ? impending sepsis. PLAN: 1. Adjust electrolytes and hyperal. 2. Drainage of ascitic fluid. 3. Replace electrolytes including calcium and magnesium. 4. Management of cancer as per Oncology team. Valeria Dominguez MD
[2017-06-24 12:14] LABS: PLATELET COUNT 62 10^3/uL (120.0-450.0)
[2017-06-24] MEDS ORDERED: [UNRECOGNIZED DRUG - NUTRITION] IV SCH (18:00)
--- NOTE | 2017-06-24 21:50 | CP.PCM.PN ---
<Gina Ludwig - Last Filed: 06/24/17 21:46> Subjective - Date & Time of Evaluation Date of Evaluation: 06/24/17 Time of Evaluation: 08:00 - Subjective Subjective: Dr. Turk Progress Note Pt was seen and examined at bedside. Pt found to be resting comfortably. Pt stated she's feeling more fatigued than usual. She did not get proper sleep last night. She continues to experience poor oral intake. No acute or adverse events overnight as per nursing staff. Pt denied fever, chills, shortness of breath, chest pains, vomiting, constipation, diarrhea, or urinary symptoms. Objective - Vital Signs/Intake and Output Vital Signs (last 24 hours): Temp Pulse Resp BP Pulse Ox 98.4 F 106 H 20 94/59 L 97 06/24/17 16:00 06/24/17 16:00 06/24/17 16:00 06/24/17 16:00 06/24/17 16:00 - Medications Medications: Current Medications Docusate Sodium (Colace) 100 mg PO BID [facility] Last Admin: 06/24/17 17:18 Dose: 100 mg Dronabinol (Marinol) 2.5 mg PO DAILY [facility] Last Admin: 06/24/17 09:44 Dose: 2.5 mg Fentanyl (Duragesic) 1 patch TD Q72H [facility] Last Admin: 06/24/17 09:44 Dose: 1 patch Home Med (Home Med) 2 unit PO DAILY [facility] Last Admin: 06/24/17 10:15 Dose: 2 unit Chromium/Copper/Manganese/Zinc 1 ml/ Multivitamins/Vitamin C 10 ml/ Insulin Human Regular 10 units/ Amino Acids 2,011.1 mls @ 83 mls/hr IV .Q24H [facility] Last Admin: 06/24/17 17:17 Dose: 83 mls/hr Lisinopril (Zestril) 2.5 mg PO DAILY [facility] Last Admin: 06/12/17 10:56 Dose: 2.5 mg Ondansetron HCl (Zofran Inj) 4 mg IVP Q6H PRN PRN Reason: Nausea/Vomiting Last Admin: 06/24/17 07:45 Dose: 4 mg Oxycodone HCl (Oxycodone Immediate Release Tab) 5 mg PO Q4H PRN PRN Reason: Pain, moderate (4-7) Pantoprazole Sodium (Protonix Ec Tab) 40 mg PO DAILY [facility] Last Admin: 06/24/17 09:44 Dose: 40 mg Polyethylene Glycol (Miralax) 17 gm PO BID [facility] Last Admin: 06/24/17 17:18 Dose: Not Given Potassium Chloride (K-Dur 20 Meq Er Tab) 20 meq PO BRK [facility] Last Admin: 06/24/17 09:45 Dose: 20 meq Simethicone (Mylicon Liq) 80 mg PO QID PRN PRN Reason: Flatulence Last Admin: 06/14/17 17:02 Dose: 80 mg Sucralfate (Carafate Oral Susp) 1 gm PO BID [facility] Last Admin: 06/24/17 17:18 Dose: 1 gm Ursodiol (Actigall) 300 mg PO DAILY [facility] Last Admin: 06/24/17 09:45 Dose: 300 mg - Labs Labs: 06/24/17 06:00 06/24/17 06:00 PT 22.8 SECONDS (9.4-12.5) H 06/23/17 05:40 INR 1.96 (0.93-1.08) H 06/23/17 05:40 APTT 41.2 Seconds (25.1-36.5) H 06/23/17 05:40 - Constitutional Appears: No Acute Distress, Cachectic - Head Exam Head Exam: ATRAUMATIC, NORMAL INSPECTION, NORMOCEPHALIC - Eye Exam Eye Exam: EOMI, Normal appearance, PERRL Pupil Exam: NORMAL ACCOMODATION, PERRL - ENT Exam ENT Exam: Mucous Membranes Moist, Normal Exam - Respiratory Exam Respiratory Exam: Clear to Ausculation Bilateral, NORMAL BREATHING PATTERN - Cardiovascular Exam Cardiovascular Exam: REGULAR RHYTHM, +S1, +S2. absent: Murmur - GI/Abdominal Exam GI & Abdominal Exam: Soft, Normal Bowel Sounds. absent: Tenderness Additional comments: Drain RLQ noted - Neurological Exam Neurological Exam: Alert, Awake, CN II-XII Intact, Oriented x3 - Psychiatric Exam Psychiatric exam: Normal Affect, Normal Mood - Skin Skin Exam: Dry, Intact, Normal Color, Warm Assessment and Plan - Assessment and Plan (Free Text) Assessment: Stage IV metastatic colon cancer with liver metastasis Recurrent ascites status post Aspira catheter Abdominal pain post Aspira catheter insertion Cholelithiasis with recent acute cholecystitis status managed conservatively with antibiotics GERD Hypertension Elevated liver enzymes Luekocytosis PLAN: Ascitic fluid negative, PMN<250, ID on board, Dr. Rowley, dc antibiotics Leukocytosis 2/2 probably from malig diet as tolerated, low albumin - soft diet preferred Encouraged to take oral fluids and Ensure supplements Pain management on Colace Zofran prn Continue Protonix 40 daily and Carafate Trend LFTs, restart chemo as per Heme/onc ABD US completed, CBD not dilated Intermittent drainage as per aspira drain Palliative care consulted, family conference for end of life goals and planning start appetite stimulant oncology FU Poor prognosis Discussed with Dr. Turk <Joi Turk V - Last Filed: 06/24/17 23:57> Objective - Vital Signs/Intake and Output Vital Signs (last 24 hours): Temp Pulse Resp BP Pulse Ox 98.4 F 106 H 20 94/59 L 97 06/24/17 16:00 06/24/17 16:00 06/24/17 16:00 06/24/17 16:00 06/24/17 16:00 Intake and Output: 06/24/17 06/25/17 18:59 06:59 Intake Total 360 Balance 360 - Medications Medications: Current Medications Docusate Sodium (Colace) 100 mg PO BID [facility] Last Admin: 06/24/17 17:18 Dose: 100 mg Dronabinol (Marinol) 2.5 mg PO DAILY [facility] Last Admin: 06/24/17 09:44 Dose: 2.5 mg Fentanyl (Duragesic) 1 patch TD Q72H [facility] Last Admin: 06/24/17 09:44 Dose: 1 patch Home Med (Home Med) 2 unit PO DAILY [facility] Last Admin: 06/24/17 10:15 Dose: 2 unit Chromium/Copper/Manganese/Zinc 1 ml/ Multivitamins/Vitamin C 10 ml/ Insulin Human Regular 10 units/ Amino Acids 2,011.1 mls @ 83 mls/hr IV .Q24H [facility] Last Admin: 06/24/17 17:17 Dose: 83 mls/hr Lisinopril (Zestril) 2.5 mg PO DAILY [facility] Last Admin: 06/12/17 10:56 Dose: 2.5 mg Ondansetron HCl (Zofran Inj) 4 mg IVP Q6H PRN PRN Reason: Nausea/Vomiting Last Admin: 06/24/17 07:45 Dose: 4 mg Oxycodone HCl (Oxycodone Immediate Release Tab) 5 mg PO Q4H PRN PRN Reason: Pain, moderate (4-7) Pantoprazole Sodium (Protonix Ec Tab) 40 mg PO DAILY [facility] Last Admin: 06/24/17 09:44 Dose: 40 mg Polyethylene Glycol (Miralax) 17 gm PO BID [facility] Last Admin: 06/24/17 17:18 Dose: Not Given Potassium Chloride (K-Dur 20 Meq Er Tab) 20 meq PO BRK [facility] Last Admin: 06/24/17 09:45 Dose: 20 meq Simethicone (Mylicon Liq) 80 mg PO QID PRN PRN Reason: Flatulence Last Admin: 06/14/17 17:02 Dose: 80 mg Sucralfate (Carafate Oral Susp) 1 gm PO BID [facility] Last Admin: 06/24/17 17:18 Dose: 1 gm Ursodiol (Actigall) 300 mg PO DAILY [facility] Last Admin: 06/24/17 09:45 Dose: 300 mg - Labs Labs: 06/24/17 06:00 06/24/17 06:00 PT 22.8 SECONDS (9.4-12.5) H 06/23/17 05:40 INR 1.96 (0.93-1.08) H 06/23/17 05:40 APTT 41.2 Seconds (25.1-36.5) H 06/23/17 05:40 Attending/Attestation - Attestation I have personally seen and examined this patient.: Yes I have fully participated in the care of the patient.: Yes I have reviewed all pertinent clinical information, including history, physical exam and plan: Yes Notes (Text): This is an addendum to GI consult report dictated by the [employer].The patient was seen and examined earlier. Medical records, lab studies, imagings were reviewed. Last 24 hours events reviewed. Agreed with the above treatment plan as outlined in [employer] 's notes the with the addition of the following 06/24/17 23:57
--- NOTE | 2017-06-24 23:35 | PN ---
DATE: 06/24/2017 SUBJECTIVE: The patient is in bed, in no acute distress. PHYSICAL EXAMINATION: VITAL SIGNS: On exam, temperature is 98, blood pressure is 94/50, respiratory rate of 20. HEENT: Examination of HEENT is unremarkable. NECK: Supple. LUNGS: Have decreased breath sounds. HEART: Exam is normal S1, S2. ABDOMEN: Examination is soft, nontender. LABORATORY DATA: Laboratory examination reveals the patient's white count of 25,000, hemoglobin of 10 and platelets are noted. Review of orders reveals the patient to be off of antibiotics. ASSESSMENT AND PLAN: This is a 62-year-old female who was seen early this morning. Patient is chronically ill, debilitated, the patient with systemic inflammatory response syndrome secondary to malignancy. Currently, off of antibiotics. Overall prognosis is quite poor for this patient. She turns 62 today on her birthday. Dorian Solis MD
[2017-06-25] MEDS ORDERED: Morphine 2 mg/ml ISec IVP STA (04:17)
[2017-06-25 06:29] LABS: HEMOGLOBIN 10.2 g/dL (12.0-16.0); MEAN CELL VOLUME 81.2 fl (80.0-105.0); MEAN CORPUSCULAR HEMOGLOBIN 28.2 pg (25.0-35.0); MEAN CORPUSCULAR HGB CONC 34.7 g/dl (31.0-37.0); PLATELET COUNT 79 10^3/uL (120.0-450.0); RBC 3.62 10^6/uL (3.5-6.1); RED CELL DISTRIBUTION WIDTH 20.5 % (11.5-14.5)
[2017-06-25 06:47] LABS: WHITE BLOOD COUNT 25.9 10^3/ul (4.5-11.0)
[2017-06-25 07:10] LABS: ALB/GLOB RATIO 0.6 (1.1-1.8); ALBUMIN 2.5 g/dL (3.0-4.8); CALCIUM 6.3 mg/dL (8.4-10.5)
--- NOTE | 2017-06-25 09:20 | CP.PCM.PN ---
<Calvin Dill - Last Filed: 06/25/17 10:46> Subjective - Date & Time of Evaluation Date of Evaluation: 06/25/17 Time of Evaluation: 07:00 - Subjective Subjective: Calvin Dill D.O. 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 Patient was seen and examined at bedside. Very sleepy, still not feeling that great. Pain somewhat better controlled. Objective - Vital Signs/Intake and Output Vital Signs (last 24 hours): Temp Pulse Resp BP Pulse Ox 97.3 F L 109 H 20 105/69 95 06/25/17 08:10 06/25/17 08:10 06/25/17 08:10 06/25/17 08:10 06/25/17 08:10 Intake and Output: 06/25/17 06/25/17 06:59 18:59 Intake Total 1460 60 Balance 1460 60 - Medications Medications: Current Medications Docusate Sodium (Colace) 100 mg PO BID [facility] Last Admin: 06/24/17 17:18 Dose: 100 mg Dronabinol (Marinol) 2.5 mg PO DAILY [facility] Last Admin: 06/24/17 09:44 Dose: 2.5 mg Fentanyl (Duragesic) 1 patch TD Q72H [facility] Last Admin: 06/24/17 09:44 Dose: 1 patch Home Med (Home Med) 2 unit PO DAILY [facility] Last Admin: 06/24/17 10:15 Dose: 2 unit Chromium/Copper/Manganese/Zinc 1 ml/ Multivitamins/Vitamin C 10 ml/ Insulin Human Regular 10 units/ Amino Acids 2,011.1 mls @ 83 mls/hr IV .Q24H [facility] Last Admin: 06/24/17 17:17 Dose: 83 mls/hr Lisinopril (Zestril) 2.5 mg PO DAILY [facility] Last Admin: 06/12/17 10:56 Dose: 2.5 mg Morphine Sulfate (Morphine) 2 mg IVP Q2H PRN PRN Reason: Pain, severe (8-10) Ondansetron HCl (Zofran Inj) 4 mg IVP Q6H PRN PRN Reason: Nausea/Vomiting Last Admin: 06/25/17 04:26 Dose: 4 mg Oxycodone HCl (Oxycodone Immediate Release Tab) 5 mg PO Q4H PRN PRN Reason: Pain, moderate (4-7) Pantoprazole Sodium (Protonix Ec Tab) 40 mg PO DAILY [facility] Last Admin: 06/24/17 09:44 Dose: 40 mg Polyethylene Glycol (Miralax) 17 gm PO BID [facility] Last Admin: 06/24/17 17:18 Dose: Not Given Potassium Chloride (K-Dur 20 Meq Er Tab) 20 meq PO BRK [facility] Last Admin: 06/24/17 09:45 Dose: 20 meq Simethicone (Mylicon Liq) 80 mg PO QID PRN PRN Reason: Flatulence Last Admin: 06/14/17 17:02 Dose: 80 mg Sucralfate (Carafate Oral Susp) 1 gm PO BID [facility] Last Admin: 06/24/17 17:18 Dose: 1 gm Ursodiol (Actigall) 300 mg PO DAILY [facility] Last Admin: 06/24/17 09:45 Dose: 300 mg - Labs Labs: 06/25/17 06:00 06/25/17 06:00 PT 22.8 SECONDS (9.4-12.5) H 06/23/17 05:40 INR 1.96 (0.93-1.08) H 06/23/17 05:40 APTT 41.2 Seconds (25.1-36.5) H 06/23/17 05:40 - Constitutional Appears: No Acute Distress, Chronically Ill, Cachectic - Head Exam Head Exam: ATRAUMATIC, NORMOCEPHALIC - Eye Exam Eye Exam: EOMI, PERRL, scleral icterus - ENT Exam ENT Exam: Mucous Membranes Dry, Normal Oropharynx - Neck Exam Neck Exam: Normal Inspection - Respiratory Exam Respiratory Exam: Clear to Ausculation Bilateral. absent: Rhonchi, Wheezes - Cardiovascular Exam Cardiovascular Exam: RRR, +S1, +S2 - GI/Abdominal Exam GI & Abdominal Exam: Distended, Aspira cathter in place, Soft, Normal Bowel Sounds, + Fluid wave - Extremities Exam Extremities Exam: Pedal Edema (+1). 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 and liver metastases who presented with pain and nausea after aspira cathter insertion Plan: Stave IV colorectal CA with abdominal carcinomatosis and liver metastases Ascites s/p aspira catheter for intermittent drainage Hyperbilirubinemia likely 2/2 extensive liver metastases, cholestatic - worsening Transaminemia - improving Hyponatremia - resolved Dehydration with associated OMAR Hypocalcemia Hypomagnesemeia Anorexia and cachexia Worsening leukocytosis HTN Re-ordering Stivarga from the pharmacy to be able to take while inpatient, salvage therapy at this time to try and reduce her tumor burden GI following, recs appreciated Nephro following, on hyper-al, recs appreciated Repeat dose of calcium gluconate Will give 1U FFP today in an effort to both help her coagulation as well as increase oncotic pressure Had repeat drainage via aspira catheter yesterday of 1.5L clear yellow ascitic fluid Palliative/Hospice following, discussed with them how we must align together for our goals and what is best for her at this point Very poor prognosis at this time, discussion of goals of care underway, likely will go to [facility] vs [facility], CM and SS following Patient was seen and examined and case was discussed with attending physician <Thalia Pretty P - Last Filed: 06/26/17 21:41> Objective - Vital Signs/Intake and Output Vital Signs (last 24 hours): Temp Pulse Resp BP Pulse Ox 98 F 102 H 18 106/64 97 06/26/17 16:00 06/26/17 16:00 06/26/17 16:00 06/26/17 16:00 06/26/17 16:00 - Medications Medications: Current Medications Docusate Sodium (Colace) 100 mg PO BID [facility] Last Admin: 06/26/17 18:18 Dose: 100 mg Dronabinol (Marinol) 2.5 mg PO DAILY [facility] Last Admin: 06/26/17 09:42 Dose: 2.5 mg Fentanyl (Duragesic) 1 patch TD Q72H [facility] Last Admin: 06/24/17 09:44 Dose: 1 patch Home Med (Home Med) 2 unit PO DAILY [facility] Last Admin: 06/26/17 09:46 Dose: Not Given Chromium/Copper/Manganese/Zinc 1 ml/ Multivitamins/Vitamin C 10 ml/ Insulin Human Regular 10 units/ Amino Acids 2,011.1 mls @ 83 mls/hr IV .Q24H [facility] Last Admin: 06/26/17 18:18 Dose: 83 mls/hr Lactulose (Enulose) 10 gm PO BID [facility] Last Admin: 06/26/17 18:20 Dose: Not Given Morphine Sulfate (Morphine) 2 mg IVP Q2H PRN PRN Reason: Pain, severe (8-10) Last Admin: 06/26/17 09:43 Dose: 2 mg Nystatin (Nystatin Oral Susp) 5 ml PO QID [facility] Last Admin: 06/26/17 18:18 Dose: 5 ml Ondansetron HCl (Zofran Inj) 4 mg IVP Q6H PRN PRN Reason: Nausea/Vomiting Last Admin: 06/26/17 06:31 Dose: 4 mg Oxycodone HCl (Oxycodone Immediate Release Tab) 5 mg PO Q4H PRN PRN Reason: Pain, moderate (4-7) Pantoprazole Sodium (Protonix Ec Tab) 40 mg PO DAILY [facility] Last Admin: 06/26/17 09:43 Dose: 40 mg Polyethylene Glycol (Miralax) 17 gm PO BID [facility] Last Admin: 06/26/17 18:19 Dose: Not Given Potassium Chloride (K-Dur 20 Meq Er Tab) 20 meq PO BRK [facility] Last Admin: 06/26/17 09:42 Dose: 20 meq Simethicone (Mylicon Liq) 80 mg PO QID PRN PRN Reason: Flatulence Last Admin: 06/14/17 17:02 Dose: 80 mg Sucralfate (Carafate Oral Susp) 1 gm PO BID [facility] Last Admin: 06/26/17 18:20 Dose: Not Given Ursodiol (Actigall) 300 mg PO DAILY [facility] Last Admin: 06/26/17 09:42 Dose: 300 mg - Labs Labs: 06/26/17 06:00 06/26/17 06:00 PT 22.8 SECONDS (9.4-12.5) H 06/23/17 05:40 INR 1.96 (0.93-1.08) H 06/23/17 05:40 APTT 41.2 Seconds (25.1-36.5) H 06/23/17 05:40 Attending/Attestation - Attestation I have personally seen and examined this patient.: Yes I have fully participated in the care of the patient.: Yes I have reviewed all pertinent clinical information, including history, physical exam and plan: Yes
[2017-06-25] MEDS: POLYETHYLENE GLYCOL 3350 17 GM/Dose PACKET PO SCH ×2 (09:58→17:18)
[2017-06-25] MEDS: Sucralfate 1 gm/10 ml Oral Susp UD PO SCH ×2 (09:58→17:18)
[2017-06-25] MEDS: Potassium Chloride 20 mEq ER Tab PO SCH (09:59)
[2017-06-25] MEDS: STIVARGA 40 MG PO SCH (09:59)
[2017-06-25] MEDS: Pantoprazole 40 mg EC Tab PO SCH (09:59)
[2017-06-25] MEDS ORDERED: DiphenhydrAMINE 50 mg/ml Inj IVP ONE (10:30)
[2017-06-25] MEDS ORDERED: [UNRECOGNIZED DRUG - NUTRITION] IV SCH (13:45)
--- NOTE | 2017-06-25 15:27 | PN ---
DATE: SUBJECTIVE: The patient is currently seen in her room asleep. Her mouth is wide open, hyperalimentation is infusing. The patient looks relatively poor today. She remains on hyperalimentation with multiple electrolyte abnormalities. She has a rising white blood cell count and rising bilirubin levels. MEDICATIONS: Medication list reviewed. The patient is currently on Actigall, Carafate, hyperalimentation without lipids, Colace, Duragesic, Stivarga, potassium chloride which will be discontinued orally, Marinol, MiraLax, morphine, Mylicon, oxycodone p.r.n., Protonix, lisinopril is on hold and Zofran. PHYSICAL EXAMINATION INTAKE/OUTPUT: Intake 1460, output not charted. VITAL SIGNS: Blood pressure 145/82, temperature 98.8, respiratory rate 18 with a pulse of 82. HEENT: Normocephalic, atraumatic. Conjunctivae are pink. Sclerae are icteric. NECK: Supple. No neck vein distention. CHEST: Clear to auscultation and percussion. No rales, rhonchi or wheezing. CARDIOVASCULAR: Shows a regular rate and rhythm without audible murmurs, rubs or gallops. ABDOMEN: Distended. Positive ascites. She has a PD catheter in her right lower quadrant. No rebound, guarding or palpable masses. EXTREMITIES: Show no lower extremity edema. No cyanosis or clubbing. LABORATORY DATA AND IMAGING: CBC: White blood cell count today up to 25.9, hemoglobin 10.2, platelet count is 79,000. Chemistries: Sodium of 132, potassium 4.2, chloride 98, CO2 of 17, anion gap 21, BUN is now up to 84, creatinine is up to 1.9. Glucose 131. Calcium is 6.3 with an albumin of 2.5. Corrected calcium is 7.5. Phosphorus level is extremely high at 12.0. Magnesium is 2.1. Microbiology: Urines are positive for yeast. All the cultures are negative. ASSESSMENT: 1. Prerenal azotemia worsening in the setting of hyperalimentation in the setting of renal hypoperfusion in the setting of past diuretic therapy. Her baseline creatinine has been in the 1 range. She is currently up to 1.9. Her BUN has risen from 30 up to 84. Her baseline BUN is less than 20. 2. Mild hyponatremia. I will correct the patient's hyperalimentation, to give her isotonic hyperalimentation, we will do this by increasing the sodium acetate. The patient has had a depletion of hyponatremia. 3. History of hypertension. Blood pressure is improved today. Lisinopril is on hold at present. 4. Stage IV colon cancer with liver mets. The patient is receiving chemotherapy as per Dr. Pretty. 5. History of ascites secondary to mets to the liver. The patient has a peritoneal catheter in place, which is opened periodically to relieve the pressure from the increasing ascitic fluid. 6. Severe hyperphosphatemia, a high phosphorus level. Phosphorus was discontinued from the hyperalimentation. 7. Hypocalcemia. The patient had calcium increased in her hyperalimentation. 8. Hypomagnesemia. This is corrected with adding magnesium back to hyperalimentation and a slightly higher dose. PLAN: 1. From my standpoint, continue hyperalimentation. 2. Discussion with her oncologist and perhaps palliative care for direction as to where to go as the patient's situation continues to worsen. 3. Continue to use her peritoneal catheter to drain ascitic fluid as necessary. 4. P.r.n., restart the patient back on blood pressure medication, but I would not use an PAKO inhibitor in light of her rising BUN and creatinine. Yang Cuellar MD
[2017-06-25] MEDS: Morphine 2 mg/ml ISec IVP PRN ×2 (16:11→23:02)
--- NOTE | 2017-06-25 16:14 | CP.PCM.PN ---
Subjective - Date & Time of Evaluation Date of Evaluation: 06/25/17 Time of Evaluation: 11:00 - Subjective Subjective: Lethargic, appears uncomfortable. States she doesn't feel good, denies pain Objective - Vital Signs/Intake and Output Vital Signs (last 24 hours): Temp Pulse Resp BP Pulse Ox 98.8 F 82 18 145/82 95 06/25/17 11:50 06/25/17 11:50 06/25/17 11:50 06/25/17 11:50 06/25/17 08:10 Intake and Output: 06/25/17 06/25/17 06:59 18:59 Intake Total 1460 60 Balance 1460 60 - Medications Medications: Current Medications Docusate Sodium (Colace) 100 mg PO BID [facility] Last Admin: 06/25/17 09:59 Dose: 100 mg Dronabinol (Marinol) 2.5 mg PO DAILY [facility] Last Admin: 06/25/17 09:59 Dose: 2.5 mg Fentanyl (Duragesic) 1 patch TD Q72H [facility] Last Admin: 06/24/17 09:44 Dose: 1 patch Home Med (Home Med) 2 unit PO DAILY [facility] Last Admin: 06/25/17 09:59 Dose: Not Given Chromium/Copper/Manganese/Zinc 1 ml/ Multivitamins/Vitamin C 10 ml/ Insulin Human Regular 10 units/ Amino Acids 2,011.1 mls @ 83 mls/hr IV .Q24H [facility] Lisinopril (Zestril) 2.5 mg PO DAILY [facility] Last Admin: 06/12/17 10:56 Dose: 2.5 mg Morphine Sulfate (Morphine) 2 mg IVP Q2H PRN PRN Reason: Pain, severe (8-10) Ondansetron HCl (Zofran Inj) 4 mg IVP Q6H PRN PRN Reason: Nausea/Vomiting Last Admin: 06/25/17 04:26 Dose: 4 mg Oxycodone HCl (Oxycodone Immediate Release Tab) 5 mg PO Q4H PRN PRN Reason: Pain, moderate (4-7) Pantoprazole Sodium (Protonix Ec Tab) 40 mg PO DAILY [facility] Last Admin: 06/25/17 09:59 Dose: 40 mg Polyethylene Glycol (Miralax) 17 gm PO BID [facility] Last Admin: 03/08/18 09:58 Dose: 17 gm Potassium Chloride (K-Dur 20 Meq Er Tab) 20 meq PO BRK [facility] Last Admin: 06/25/17 09:59 Dose: 20 meq Simethicone (Mylicon Liq) 80 mg PO QID PRN PRN Reason: Flatulence Last Admin: 06/14/17 17:02 Dose: 80 mg Sucralfate (Carafate Oral Susp) 1 gm PO BID [facility] Last Admin: 06/25/17 09:58 Dose: 1 gm Ursodiol (Actigall) 300 mg PO DAILY [facility] Last Admin: 06/25/17 09:59 Dose: 300 mg - Labs Labs: 06/25/17 06:00 06/25/17 06:00 PT 22.8 SECONDS (9.4-12.5) H 06/23/17 05:40 INR 1.96 (0.93-1.08) H 06/23/17 05:40 APTT 41.2 Seconds (25.1-36.5) H 06/23/17 05:40 - Constitutional Appears: Cachectic, Chronically Ill - Head Exam Head Exam: NORMOCEPHALIC - Eye Exam Eye Exam: Scleral icterus - ENT Exam ENT Exam: Mucous Membranes Moist - Respiratory Exam Respiratory Exam: Decreased Breath Sounds, NORMAL BREATHING PATTERN - Cardiovascular Exam Cardiovascular Exam: REGULAR RHYTHM, +S1, +S2 - GI/Abdominal Exam GI & Abdominal Exam: Distended, Firm, Diminished Bowel Sounds - Extremities Exam Additional comments: edema of lower extremities - Neurological Exam Neurological Exam: Alert Assessment and Plan - Assessment and Plan (Free Text) Assessment: 62 year old female with history of colon cancer,metastatic to liver, carcinomatosis, ascites, cholecystitis and anemia who is admitted with intractable pain,ascites, hyperbilrubenima, leukocytosis. Tessa is alert,weak, states she is not feeling well but unable to explain what is bothering her. She denied pain. I expressed concern as she was much weaker and appeared to be declining since our visit last week. I asked if she wanted to reconsider hospice/comfort care. She did not answer me. I also explained that it was important for us to discuss terms of her advance directive. Tessa was unable to stay focused on conversation, kept changing the subject and interjecting other concerns which were unrelated to our conversation. I asked specifically about DNR/DNI status. She could not verbalize what her wishes are, and indicated that the papers are in her chart. She stated that too many things were on her mind. Reassured her that we could work together to sort things out. Asked what was troubling her most but she was unable or unwilling to share her feelings. Explained that I would like to help her though this process. Reassured her we would focus on one thing at the time. I also offered to meet with her and POA if that would make her more comfortable. She wasn't open to further conversation. I spoke with Tessa's POA, Norma Taylor via phone. Ms. Taylor aware of Tessa 's medical condition. I explained that Tessa was much weaker and that over all, her condition had declined. I also explained that Tessa was unable to confirm whether she wished to be resuscitated via CPR/ intubation. Burdens of aggressive resuscitation in individuals with underlying condition such as Iris were explained to Norma. Norma intends to speak with Tessa this evening regarding DNR/DNI status. I also explained that Tessa had been offered option for hospice care. Impressed that hospice would focus on comfort and quality of life rather than on treatment. Encouraged Norma to speak with Tessa about this as well. I offed to meet with Norma for further discussion regarding goals of care Time spent in goals of care discussion 45 minutes Plan: Palliative support in establishing goals of care
[2017-06-25] MEDS: [UNRECOGNIZED DRUG - NUTRITION] IV SCH (17:17)
--- NOTE | 2017-06-25 23:16 | PN ---
DATE: 06/25/2017 SUBJECTIVE: Patient seen early this morning in bed, no acute distress, nontoxic. PHYSICAL EXAMINATION: VITAL SIGNS: Temperature is 98, blood pressure is 105/60, respiratory rate of 20. HEENT: Unremarkable. NECK: Supple. LUNGS: Have decreased breath sounds. HEART: Normal S1, S2. ABDOMEN: Soft, nontender. LABORATORY EXAMINATION: Reveals a white count of 25,000. Review of orders noted the patient to be off of antibiotics. Janice Perez's progress note from today is noted. ASSESSMENT AND PLAN: A 62-year-old female who was seen early this morning, chronically ill, debilitated, end stage with systemic inflammatory response syndrome secondary to malignancy, off of antibiotics. Overall prognosis is quite poor, should consider hospice setting for this patient who is terminal. Dorian Solis MD
[2017-06-26] MEDS: Morphine 2 mg/ml ISec IVP PRN ×5 (01:16→22:04)
[2017-06-26 07:45] LABS: HEMOGLOBIN 10.1 g/dL (12.0-16.0); MEAN CELL VOLUME 81.3 fl (80.0-105.0); MEAN CORPUSCULAR HEMOGLOBIN 27.8 pg (25.0-35.0); MEAN CORPUSCULAR HGB CONC 34.2 g/dl (31.0-37.0); PLATELET COUNT 84 10^3/uL (120.0-450.0); RBC 3.63 10^6/uL (3.5-6.1); RED CELL DISTRIBUTION WIDTH 20.7 % (11.5-14.5)
[2017-06-26 08:03] LABS: ALB/GLOB RATIO 0.6 (1.1-1.8); ALBUMIN 2.6 g/dL (3.0-4.8); CALCIUM 6.8 mg/dL (8.4-10.5)
[2017-06-26] MEDS: STIVARGA 40 MG PO SCH ×2 (09:42→09:46)
[2017-06-26] MEDS: Potassium Chloride 20 mEq ER Tab PO SCH (09:42)
[2017-06-26] MEDS: Sucralfate 1 gm/10 ml Oral Susp UD PO SCH ×2 (09:42→18:20)
[2017-06-26] MEDS: POLYETHYLENE GLYCOL 3350 17 GM/Dose PACKET PO SCH ×2 (09:43→18:19)
[2017-06-26] MEDS: Pantoprazole 40 mg EC Tab PO SCH (09:43)
--- NOTE | 2017-06-26 09:57 | CP.PCM.PN ---
Subjective - Date & Time of Evaluation Date of Evaluation: 06/26/17 Time of Evaluation: 07:10 - Subjective Subjective: Calvin Dill D.O. 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 Patient was seen and examined. Still having a lot of pain at times requiring morphine. Eating very little, constantly requires zofran and still on PPN. Made DNR/DNI yesterday. Objective - Vital Signs/Intake and Output Vital Signs (last 24 hours): Temp Pulse Resp BP Pulse Ox 97.7 F 108 H 21 107/68 97 06/26/17 06:00 06/26/17 06:00 06/26/17 06:00 06/26/17 06:00 06/26/17 06:00 Intake and Output: 06/26/17 06/26/17 06:59 18:59 Intake Total 1590 Balance 1590 - Medications Medications: Current Medications Docusate Sodium (Colace) 100 mg PO BID [facility] Last Admin: 06/26/17 09:42 Dose: 100 mg Dronabinol (Marinol) 2.5 mg PO DAILY [facility] Last Admin: 06/26/17 09:42 Dose: 2.5 mg Fentanyl (Duragesic) 1 patch TD Q72H [facility] Last Admin: 06/24/17 09:44 Dose: 1 patch Home Med (Home Med) 2 unit PO DAILY [facility] Last Admin: 06/26/17 09:46 Dose: Not Given Chromium/Copper/Manganese/Zinc 1 ml/ Multivitamins/Vitamin C 10 ml/ Insulin Human Regular 10 units/ Amino Acids 2,011.1 mls @ 83 mls/hr IV .Q24H [facility] Last Admin: 06/25/17 17:17 Dose: 83 mls/hr Lisinopril (Zestril) 2.5 mg PO DAILY [facility] Last Admin: 06/12/17 10:56 Dose: 2.5 mg Morphine Sulfate (Morphine) 2 mg IVP Q2H PRN PRN Reason: Pain, severe (8-10) Last Admin: 06/26/17 09:43 Dose: 2 mg Ondansetron HCl (Zofran Inj) 4 mg IVP Q6H PRN PRN Reason: Nausea/Vomiting Last Admin: 06/26/17 06:31 Dose: 4 mg Oxycodone HCl (Oxycodone Immediate Release Tab) 5 mg PO Q4H PRN PRN Reason: Pain, moderate (4-7) Pantoprazole Sodium (Protonix Ec Tab) 40 mg PO DAILY [facility] Last Admin: 06/26/17 09:43 Dose: 40 mg Polyethylene Glycol (Miralax) 17 gm PO BID [facility] Last Admin: 06/26/17 09:43 Dose: 17 gm Potassium Chloride (K-Dur 20 Meq Er Tab) 20 meq PO BRK [facility] Last Admin: 06/26/17 09:42 Dose: 20 meq Simethicone (Mylicon Liq) 80 mg PO QID PRN PRN Reason: Flatulence Last Admin: 06/14/17 17:02 Dose: 80 mg Sucralfate (Carafate Oral Susp) 1 gm PO BID [facility] Last Admin: 06/26/17 09:42 Dose: 1 gm Ursodiol (Actigall) 300 mg PO DAILY [facility] Last Admin: 06/26/17 09:42 Dose: 300 mg - Labs Labs: 06/26/17 06:00 06/26/17 06:00 PT 22.8 SECONDS (9.4-12.5) H 06/23/17 05:40 INR 1.96 (0.93-1.08) H 06/23/17 05:40 APTT 41.2 Seconds (25.1-36.5) H 06/23/17 05:40 - Constitutional Appears: No Acute Distress, Chronically Ill, Worsening cachexia - Head Exam Head Exam: ATRAUMATIC, NORMOCEPHALIC - Eye Exam Eye Exam: EOMI, PERRL, scleral icterus - ENT Exam ENT Exam: Mucous Membranes Dry, Normal Oropharynx - Neck Exam Neck Exam: Normal Inspection - Respiratory Exam Respiratory Exam: Clear to Ausculation Bilateral. absent: Rhonchi, Wheezes - Cardiovascular Exam Cardiovascular Exam: RRR, +S1, +S2 - GI/Abdominal Exam GI & Abdominal Exam: Distended, Aspira cathter in place, Soft, Normal Bowel Sounds, + Fluid wave - Extremities Exam Extremities Exam: Pedal Edema (+1). absent: Tenderness - Neurological Exam Neurological Exam: Alert, Awake, CN II-XII Intact, Oriented x4 - Psychiatric Exam Psychiatric exam: Anxious, - Skin Skin Exam: Dry, Warm, yellowing noted Assessment and Plan - Assessment and Plan (Free Text) Assessment: 62 year old female with a PMH of Stage IV metastatic colon cancer with intraabdominal carcinomatosis and liver metastases who presented with pain and nausea after aspira cathter insertion Plan: Stave IV colorectal CA with abdominal carcinomatosis and liver metastases Ascites s/p aspira catheter for intermittent drainage Hyperbilirubinemia likely 2/2 extensive liver metastases, cholestatic - worsening Transaminemia - improving Hyponatremia - resolved Dehydration with associated OMAR Hypocalcemia Hypomagnesemeia Anorexia and cachexia Worsening leukocytosis HTN Made DNR/DNI yesterday Hospice/palliative care following, recs appreciated Continue pain control Started lactulose as her ammonia has increased Pending Stivarga re-order, salvage therapy at this time GI following, recs appreciated Nephro following, on hyper-al, recs appreciated Very poor prognosis at this time Greater than 80 minutes was spent in the care of this patient, of which more than 50% was spent at bedside with the patient discussing her prognosis, the pathophysiology of her complicated medical picture, options, where we are headed. All questions were welcomed and answered to her satisfaction. Patient was seen and examined and case was discussed with attending physician
[2017-06-26] MEDS: Nystatin 100,000 Units/ml Oral Susp 5 ml UD PO SCH ×3 (13:30→22:04)
--- NOTE | 2017-06-26 15:09 | PN ---
DATE: 06/26/2017 SUBJECTIVE: The patient is seen sitting in bed. She is awake. She is alert. She complains of abdominal pain. She looks very cachectic. PHYSICAL EXAMINATION: GENERAL: Elderly lady, sitting in bed. VITAL SIGNS: Blood pressure 107/68, heart rate 108, respiratory rate 21, temperature 97.7. HEENT: Normocephalic, atraumatic. Positive pallor. NECK: Supple. No JVD. LUNGS: Bilateral equal air entry, bilateral equal expansion, decreased breath sounds at bases. CARDIAC: S1 and S2, regular rate and rhythm, no murmur, no rub. ABDOMEN: Distended, soft, positive peritoneal catheter, bowel sounds present. EXTREMITIES: 2+ pitting edema. INTAKE AND OUTPUT: 1590/not charted. LABORATORY DATA: WBC 25, hemoglobin 10, hematocrit 30, platelets 84. Sodium 134, potassium 4.5, chloride 96, CO2 of 20, BUN 98, creatinine 2.3, glucose 109, calcium 6.8, phosphorus 9.5, magnesium 2.3, total bili 20, ammonia 55, albumin 2.6. CURRENT MEDICATIONS: Benadryl, calcium gluconate given yesterday, Carafate, hyperal, Colace, lactulose 10 mg b.i.d., potassium 20 mEq, MiraLax, morphine, Protonix, Zofran. ASSESSMENT AND PLAN: 1. Stage IV colon cancer with liver metastasis. 2. Recurrent ascites. 3. Acute kidney injury, worsening renal function. 4. Hyponatremia. 5. Hypokalemia. 6. Worsening liver function tests. 7. Severe hyperphosphatemia. 8. Hypocalcemia. PLAN: 1. Continue phosphate free hyperal. 2. Continue intermittent peritoneal fluid removal. 3. Focus on comfort care. 4. Etiology of acute kidney injury is combination of prerenal azotemia and hepatorenal syndrome. Valeria Dominguez MD
--- NOTE | 2017-06-26 15:24 | CON ---
DATE: 06/25/2017 This patient was seen and evaluated earlier today. The patient's family was at bedside. The patient is tolerating a minimal amount of p.o. intake. Still remains . The patient is on TPN. PHYSICAL EXAMINATION: VITAL SIGNS: Temperature is 98, blood pressure is 105/64, pulse 112, and respirations 20. HEENT: Still jaundiced. NECK: Supple. HEART: S1 and S2 heard. LUNGS: Bilateral air entry present. Reduced at the base. ABDOMEN: Soft. Aspira catheter present. EXTREMITIES: Bilateral edema present. LABORATORY DATA: WBC count elevated to 25.9, hemoglobin 10.2, hematocrit 29.4, and platelets 79. Total bilirubin now is 18.5 and alkaline phosphatase 425. IMPRESSION: This is a 62-year-old patient with metastatic colon cancer - status post treatment with Stivarga. The patient does have worsening of renal function and this could be related to a combination of metastatic disease and disease progression - maybe related to the Stivarga and also TPN also should be considered in the differential diagnosis. The increased LFTs could be a combination of the total parenteral nutrition, Stivarga, and also the progression of disease process . The patient does have calcified gallstones. Last endoscopy revealed common bile duct normal. Looking at the trend back of the LFTs, it has been showing a gradual increase. Overall, prognosis of the patient is poor and we will discuss with Dr. Pretty. Thank you very much for allowing us to participate in the care of the patient. Joi Turk MD
--- NOTE | 2017-06-26 17:00 | CP.PCM.PN ---
Subjective - Date & Time of Evaluation Date of Evaluation: 06/26/17 Time of Evaluation: 10:15 - Subjective Subjective: Ill-appearing, feels weak, tired, no fevers. Objective - Vital Signs/Intake and Output Vital Signs (last 24 hours): Temp Pulse Resp BP Pulse Ox 97.7 F 108 H 21 107/68 97 06/26/17 06:00 06/26/17 06:00 06/26/17 06:00 06/26/17 06:00 06/26/17 06:00 Intake and Output: 06/26/17 06/26/17 06:59 18:59 Intake Total 1590 Balance 1590 - Medications Medications: Current Medications Docusate Sodium (Colace) 100 mg PO BID [facility] Last Admin: 06/26/17 09:42 Dose: 100 mg Dronabinol (Marinol) 2.5 mg PO DAILY [facility] Last Admin: 06/26/17 09:42 Dose: 2.5 mg Fentanyl (Duragesic) 1 patch TD Q72H [facility] Last Admin: 06/24/17 09:44 Dose: 1 patch Home Med (Home Med) 2 unit PO DAILY [facility] Last Admin: 06/26/17 09:46 Dose: Not Given Chromium/Copper/Manganese/Zinc 1 ml/ Multivitamins/Vitamin C 10 ml/ Insulin Human Regular 10 units/ Amino Acids 2,011.1 mls @ 83 mls/hr IV .Q24H [facility] Last Admin: 06/25/17 17:17 Dose: 83 mls/hr Lactulose (Enulose) 10 gm PO BID [facility] Lisinopril (Zestril) 2.5 mg PO DAILY [facility] Last Admin: 06/12/17 10:56 Dose: 2.5 mg Morphine Sulfate (Morphine) 2 mg IVP Q2H PRN PRN Reason: Pain, severe (8-10) Last Admin: 06/26/17 09:43 Dose: 2 mg Ondansetron HCl (Zofran Inj) 4 mg IVP Q6H PRN PRN Reason: Nausea/Vomiting Last Admin: 06/26/17 06:31 Dose: 4 mg Oxycodone HCl (Oxycodone Immediate Release Tab) 5 mg PO Q4H PRN PRN Reason: Pain, moderate (4-7) Pantoprazole Sodium (Protonix Ec Tab) 40 mg PO DAILY [facility] Last Admin: 06/26/17 09:43 Dose: 40 mg Polyethylene Glycol (Miralax) 17 gm PO BID [facility] Last Admin: 06/26/17 09:43 Dose: 17 gm Potassium Chloride (K-Dur 20 Meq Er Tab) 20 meq PO BRK [facility] Last Admin: 06/26/17 09:42 Dose: 20 meq Simethicone (Mylicon Liq) 80 mg PO QID PRN PRN Reason: Flatulence Last Admin: 06/14/17 17:02 Dose: 80 mg Sucralfate (Carafate Oral Susp) 1 gm PO BID [facility] Last Admin: 06/26/17 09:42 Dose: 1 gm Ursodiol (Actigall) 300 mg PO DAILY [facility] Last Admin: 06/26/17 09:42 Dose: 300 mg - Labs Labs: 06/26/17 06:00 06/26/17 06:00 PT 22.8 SECONDS (9.4-12.5) H 06/23/17 05:40 INR 1.96 (0.93-1.08) H 06/23/17 05:40 APTT 41.2 Seconds (25.1-36.5) H 06/23/17 05:40 - Constitutional Appears: Cachectic, Chronically Ill - Head Exam Head Exam: NORMAL INSPECTION - Neck Exam Neck Exam: Meningismus - Respiratory Exam Respiratory Exam: Decreased Breath Sounds - Cardiovascular Exam Cardiovascular Exam: +S1, +S2 - GI/Abdominal Exam GI & Abdominal Exam: Distended, Soft. absent: Tenderness Assessment and Plan - Assessment and Plan (Free Text) Plan: Assessment Systemic inflammatory response syndrome, consider due to malignancy, no evidence of SBP, no evidence of sepsis history of acute cholecystitis, S/P conservative therapy with antibiotics colonic malignancy with liver metastases with ascites S/P paracentesis endometriosis uterine fibroids S/P removal Plan continue to monitor off antibiotics since she is at risk for infection overall prognosis is poor
--- NOTE | 2017-06-26 18:17 | CP.PCM.PN ---
<Gina Ludwig - Last Filed: 06/26/17 18:14> Subjective - Date & Time of Evaluation Date of Evaluation: 06/26/17 Time of Evaluation: 11:00 - Subjective Subjective: Dr. Turk Progress Note Pt was seen and examined at bedside. Pt found to be resting comfortably. Pt noted to be fatigued and in more pain than usual especially at night. She did not get proper sleep last night. She continues to experience poor oral intake. No acute or adverse events overnight as per nursing staff. Pt denied fever, chills, shortness of breath, chest pains, vomiting, constipation, diarrhea, or urinary symptoms. Objective - Vital Signs/Intake and Output Vital Signs (last 24 hours): Temp Pulse Resp BP Pulse Ox 98 F 102 H 18 106/64 97 06/26/17 15:35 06/26/17 15:35 06/26/17 15:35 06/26/17 15:35 06/26/17 06:00 Intake and Output: 06/26/17 06/26/17 06:59 18:59 Intake Total 1590 Balance 1590 - Medications Medications: Current Medications Docusate Sodium (Colace) 100 mg PO BID [facility] Last Admin: 06/26/17 09:42 Dose: 100 mg Dronabinol (Marinol) 2.5 mg PO DAILY [facility] Last Admin: 06/26/17 09:42 Dose: 2.5 mg Fentanyl (Duragesic) 1 patch TD Q72H [facility] Last Admin: 06/24/17 09:44 Dose: 1 patch Home Med (Home Med) 2 unit PO DAILY [facility] Last Admin: 06/26/17 09:46 Dose: Not Given Chromium/Copper/Manganese/Zinc 1 ml/ Multivitamins/Vitamin C 10 ml/ Insulin Human Regular 10 units/ Amino Acids 2,011.1 mls @ 83 mls/hr IV .Q24H [facility] Last Admin: 06/25/17 17:17 Dose: 83 mls/hr Lactulose (Enulose) 10 gm PO BID [facility] Last Admin: 06/26/17 14:34 Dose: 10 gm Morphine Sulfate (Morphine) 2 mg IVP Q2H PRN PRN Reason: Pain, severe (8-10) Last Admin: 06/26/17 09:43 Dose: 2 mg Nystatin (Nystatin Oral Susp) 5 ml PO QID [facility] Last Admin: 06/26/17 13:30 Dose: Not Given Ondansetron HCl (Zofran Inj) 4 mg IVP Q6H PRN PRN Reason: Nausea/Vomiting Last Admin: 06/26/17 06:31 Dose: 4 mg Oxycodone HCl (Oxycodone Immediate Release Tab) 5 mg PO Q4H PRN PRN Reason: Pain, moderate (4-7) Pantoprazole Sodium (Protonix Ec Tab) 40 mg PO DAILY [facility] Last Admin: 06/26/17 09:43 Dose: 40 mg Polyethylene Glycol (Miralax) 17 gm PO BID [facility] Last Admin: 06/26/17 09:43 Dose: 17 gm Potassium Chloride (K-Dur 20 Meq Er Tab) 20 meq PO BRK [facility] Last Admin: 06/26/17 09:42 Dose: 20 meq Simethicone (Mylicon Liq) 80 mg PO QID PRN PRN Reason: Flatulence Last Admin: 06/14/17 17:02 Dose: 80 mg Sucralfate (Carafate Oral Susp) 1 gm PO BID [facility] Last Admin: 06/26/17 09:42 Dose: 1 gm Ursodiol (Actigall) 300 mg PO DAILY [facility] Last Admin: 06/26/17 09:42 Dose: 300 mg - Labs Labs: 06/26/17 06:00 06/26/17 06:00 PT 22.8 SECONDS (9.4-12.5) H 06/23/17 05:40 INR 1.96 (0.93-1.08) H 06/23/17 05:40 APTT 41.2 Seconds (25.1-36.5) H 06/23/17 05:40 - Constitutional Appears: No Acute Distress - Head Exam Head Exam: ATRAUMATIC, NORMAL INSPECTION, NORMOCEPHALIC - Eye Exam Eye Exam: EOMI, Normal appearance, PERRL Pupil Exam: NORMAL ACCOMODATION, PERRL - ENT Exam ENT Exam: Mucous Membranes Moist, Normal Exam - Neck Exam Neck Exam: Full ROM, Normal Inspection. absent: Lymphadenopathy - Respiratory Exam Respiratory Exam: Clear to Ausculation Bilateral, NORMAL BREATHING PATTERN Additional comments: Inspira Cath - Cardiovascular Exam Cardiovascular Exam: REGULAR RHYTHM, +S1, +S2. absent: Murmur - GI/Abdominal Exam GI & Abdominal Exam: Soft, Normal Bowel Sounds. absent: Tenderness - Neurological Exam Neurological Exam: Alert, Awake, CN II-XII Intact, Normal Gait, Oriented x3 - Psychiatric Exam Psychiatric exam: Normal Affect, Normal Mood - Skin Skin Exam: Dry, Intact, Normal Color, Warm Assessment and Plan - Assessment and Plan (Free Text) Assessment: Stage IV metastatic colon cancer with liver metastasis Recurrent ascites status post Aspira catheter Abdominal pain post Aspira catheter insertion Cholelithiasis with recent acute cholecystitis status managed conservatively with antibiotics GERD Hypertension Elevated liver enzymes Luekocytosis PLAN: DNR/DNI Hospice/palliative care following Continue pain control Ascitic fluid negative, PMN<250, ID on board, Dr. Rowley, dc antibiotics Leukocytosis 2/2 probably from malig diet as tolerated, low albumin - soft diet preferred Encouraged to take oral fluids and Ensure supplements Pain management on Colace Zofran prn Continue Protonix 40 daily and Carafate Trend LFTs, restart chemo as per Heme/onc ABD US completed, CBD not dilated Intermittent drainage as per aspira drain Palliative care consulted, family conference for end of life goals and planning start appetite stimulant oncology FU Poor prognosis Discussed with Dr. Turk <Joi Turk V - Last Filed: 07/01/17 01:35> Objective - Vital Signs/Intake and Output Vital Signs (last 24 hours): Temp Pulse Resp BP Pulse Ox 98 F 102 H 18 106/64 97 06/26/17 16:00 06/26/17 16:00 06/26/17 16:00 06/26/17 16:00 06/26/17 16:00 - Medications Medications: Current Medications Docusate Sodium (Colace) 100 mg PO BID [facility] Last Admin: 06/26/17 18:18 Dose: 100 mg Dronabinol (Marinol) 2.5 mg PO DAILY [facility] Last Admin: 06/26/17 09:42 Dose: 2.5 mg Fentanyl (Duragesic) 1 patch TD Q72H [facility] Last Admin: 06/24/17 09:44 Dose: 1 patch Home Med (Home Med) 2 unit PO DAILY [facility] Last Admin: 06/26/17 09:46 Dose: Not Given Chromium/Copper/Manganese/Zinc 1 ml/ Multivitamins/Vitamin C 10 ml/ Insulin Human Regular 10 units/ Amino Acids 2,011.1 mls @ 83 mls/hr IV .Q24H [facility] Last Admin: 06/26/17 18:18 Dose: 83 mls/hr Lactulose (Enulose) 10 gm PO BID [facility] Last Admin: 06/26/17 18:20 Dose: Not Given Morphine Sulfate (Morphine) 2 mg IVP Q2H PRN PRN Reason: Pain, severe (8-10) Last Admin: 06/26/17 22:04 Dose: 2 mg Nystatin (Nystatin Oral Susp) 5 ml PO QID [facility] Last Admin: 06/26/17 22:04 Dose: 5 ml Ondansetron HCl (Zofran Inj) 4 mg IVP Q6H PRN PRN Reason: Nausea/Vomiting Last Admin: 06/26/17 22:04 Dose: 4 mg Oxycodone HCl (Oxycodone Immediate Release Tab) 5 mg PO Q4H PRN PRN Reason: Pain, moderate (4-7) Pantoprazole Sodium (Protonix Ec Tab) 40 mg PO DAILY [facility] Last Admin: 06/26/17 09:43 Dose: 40 mg Polyethylene Glycol (Miralax) 17 gm PO BID [facility] Last Admin: 06/26/17 18:19 Dose: Not Given Potassium Chloride (K-Dur 20 Meq Er Tab) 20 meq PO BRK [facility] Last Admin: 06/26/17 09:42 Dose: 20 meq Simethicone (Mylicon Liq) 80 mg PO QID PRN PRN Reason: Flatulence Last Admin: 06/14/17 17:02 Dose: 80 mg Sucralfate (Carafate Oral Susp) 1 gm PO BID [facility] Last Admin: 06/26/17 18:20 Dose: Not Given Ursodiol (Actigall) 300 mg PO DAILY [facility] Last Admin: 06/26/17 09:42 Dose: 300 mg - Labs Labs: 06/26/17 06:00 06/26/17 06:00 PT 22.8 SECONDS (9.4-12.5) H 06/23/17 05:40 INR 1.96 (0.93-1.08) H 06/23/17 05:40 APTT 41.2 Seconds (25.1-36.5) H 06/23/17 05:40 Attending/Attestation - Attestation I have personally seen and examined this patient.: Yes I have fully participated in the care of the patient.: Yes I have reviewed all pertinent clinical information, including history, physical exam and plan: Yes Notes (Text): This is an addendum to GI consult report dictated by the Reimbursement Coordinator.The patient was seen and examined earlier. Medical records, lab studies, imagings were reviewed. Last 24 hours events reviewed. Agreed with the above treatment plan as outlined in Reimbursement Coordinator 's notes the with the addition of the following on examination patient jaundiced Still has tenderness in the right upper quadrant area Reviewing the remains poor On TPN Increasing LFTs Overall poor prognosis 06/26/17 23:52 07/01/17 01:34
[2017-06-26] MEDS: [UNRECOGNIZED DRUG - NUTRITION] IV SCH (18:18)
[2017-06-27] MEDS: Morphine 2 mg/ml ISec IVP PRN ×4 (02:01→21:23)
[2017-06-27 04:51] LABS: HEMOGLOBIN 10.1 g/dL (12.0-16.0); MEAN CELL VOLUME 80.8 fl (80.0-105.0); MEAN CORPUSCULAR HEMOGLOBIN 28.1 pg (25.0-35.0); MEAN CORPUSCULAR HGB CONC 34.7 g/dl (31.0-37.0); PLATELET COUNT 88 10^3/uL (120.0-450.0); RED CELL DISTRIBUTION WIDTH 20.9 % (11.5-14.5); WHITE BLOOD COUNT 22.6 10^3/ul (4.5-11.0)
[2017-06-27 04:56] LABS: INR 1.69 (0.93-1.08); PROTHROMBIN TIME 19.6 SECONDS (9.4-12.5)
[2017-06-27 05:07] LABS: ALB/GLOB RATIO 0.6 (1.1-1.8); ALBUMIN 2.7 g/dL (3.0-4.8); CALCIUM 7.9 mg/dL (8.4-10.5)
[2017-06-27] MEDS: Pantoprazole 40 mg EC Tab PO SCH (10:42)
[2017-06-27] MEDS: Sucralfate 1 gm/10 ml Oral Susp UD PO SCH ×2 (10:44→18:48)
[2017-06-27] MEDS: Potassium Chloride 20 mEq ER Tab PO SCH (10:44)
[2017-06-27] MEDS: Nystatin 100,000 Units/ml Oral Susp 5 ml UD PO SCH ×4 (10:44→21:28)
[2017-06-27] MEDS: POLYETHYLENE GLYCOL 3350 17 GM/Dose PACKET PO SCH ×2 (10:45→18:39)
[2017-06-27] MEDS: STIVARGA 40 MG PO SCH (10:45)
[2017-06-27] MEDS ORDERED: [UNRECOGNIZED DRUG - NUTRITION] IV SCH (11:00)
--- NOTE | 2017-06-27 11:38 | PN ---
DATE: SUBJECTIVE: The patient is currently seen sitting up in bed talking on her phone. She remains on hyperalimentation. BUN and creatinine continued to slowly increase. The patient is now a DNR/DNI. MEDICATIONS: Medication list reviewed. The patient is on Actigall, Carafate, hyperalimentation, Colace, Duragesic, Enulose, Stivarga, potassium, Marinol, MiraLax, morphine, Mylicon, Nystatin, oxycodone, Protonix and Zofran. OBJECTIVE: INTAKE/OUTPUT: Intake 996, output not charted. VITAL SIGNS: Blood pressure 121/80, heart rate 107, temperature 97.5, respiratory rate is 20. HEENT: Shows her to be normocephalic, atraumatic. Conjunctivae are pink. Sclerae are icteric. NECK: Supple. No neck vein distention. CHEST: Clear to auscultation and percussion. No rales, rhonchi or wheezing. CARDIOVASCULAR: Shows a regular rate and rhythm without audible murmurs, rubs or gallops. ABDOMEN: Distended. Positive ascites. She has a peritoneal catheter in her right lower quadrant. No rebound, guarding or masses. EXTREMITIES: Show no significant lower extremity edema. Mildly puffy. No cyanosis or clubbing. LABORATORY DATA AND IMAGING: White blood cell count today 22.6, hemoglobin is 10.1 with a platelet count of 88,000. Coags: 19.6 PT with an INR of 1.69. Chemistries showed normal electrolytes. Chloride 94, BUN continues to rise at 105, creatinine is 2.3. Glucose 187. Calcium 7.9, but corrects to normal. Albumin is 2.7. Phosphorus is slightly lower at 8.4. She is on phosphorus-free hyperalimentation. Magnesium is 2.4. We will discontinue magnesium from her hyperalimentation. Bilirubin is elevated at 20.6. Liver enzymes are elevated. Microbiology: All cultures are negative with the exception of yeast in her urine. ASSESSMENT: 1. Worsening renal parameters, prerenal azotemia in the setting of renal hypoperfusion. This can easily be consistent with hepatorenal syndrome consistent with her hyperalimentation consistent with renal hypoperfusion. There are no plans for any dialytic therapy should her renal parameters significantly worsen. 2. Status post mild hyponatremia. This has resolved with isotonic hyperalimentation. 3. History of hypertension. Blood pressure control is excellent. Present blood pressure medications are on hold. 4. History of stage IV colon cancer with liver metastasis. The patient is receiving chemotherapy as per Dr. Pretty. 5. Do not resuscitate/do not intubate noted. 6. Ascites secondary to metastasis to the liver. The patient has a peritoneal catheter placed and periodically fluid is emptied from her abdomen. 7. Severe hyperphosphatemia. Continue phosphorus free hyperalimentation. 8. Mild hypocalcemia. Calcium level corrects to normal. 9. Mild elevation of magnesium level. In light of her worsening renal parameters, I will discontinue magnesium from her hyperalimentation. PLAN: 1. I will rewrite hyperalimentation orders today. 2. Continue to monitor labs closely. 3. Agree with palliative care, DNR/DNI in light of her poor prognosis given her stage IV metastatic colon cancer with liver metastasis. 4. Continue to keep the patient comfortable. 5. Continue to empty ascitic fluid from her abdomen via peritoneal catheter on an as-needed basis. Yang Cuellar MD
--- NOTE | 2017-06-27 15:02 | PN ---
DATE: 06/27/2017 SUBJECTIVE: The patient is in bed, in no acute distress, nontoxic. PHYSICAL EXAMINATION: VITAL SIGNS: Temperature is 97, blood pressure is 120/80, respiratory rate 20, heart rate of 107. HEENT: Examination of HEENT is temporal wasting. NECK: Supple. LUNGS: Have decreased breath sounds. HEART: Normal S1, S2. ABDOMEN: Soft. LABORATORY DATA: Laboratory examination reveals a white count of 22,600, hemoglobin of 10, platelets of 88,000. Chemistries reveals a BUN of 105, creatinine of 8.3. Urinalysis is noted and serology is negative. Review of orders reveals the patient is off of antibiotics. ASSESSMENT AND PLAN: A 61-year-old female, who was seen early this morning in room 364, bed 2, who is at the end of her life, appears cachectic with wasting syndrome and with stage IV metastatic colon cancer with liver metastases. The patient is do not resuscitate and do not intubate, currently off of antibiotics. Recommend hospice setting with this patient who has wasting and cachectic and end-stage. Dorian Solis MD
--- NOTE | 2017-06-27 18:26 | PN ---
DATE: 06/27/2017 This is Tessa Busby' hospital visit on the medical floor. For Dr. Pretty. SUBJECTIVE: The patient is a 62-year-old female with known stage IV metastatic colon cancer with intraabdominal carcinomatosis with ascites, with failure to thrive, now noted to have acute renal failure, questionable hepatorenal syndrome with her total bilirubin noted to be 20.6, INR that was elevated with the patient appearing cachectic, on hyperalimentation, with poor p.o. intake. At present, she is resting comfortably, in no acute distress, with her hyperal to be decreased to 50 mL an hour from 83 mL an hour after conversation with Dr. Yang Cuellar, kidney specialist, this may be contributing to why her p.o. intake is poor. Also, a long conversation was held with Ms. Busby and her female friend who is her power of zoning administrator, with the patient now made a DNR/DNI with consideration of hospice in the future, but not at present as per the patient's wishes. PHYSICAL EXAMINATION: VITAL SIGNS: Temperature 97.5, pulse 107, respirations 20, blood pressure 121/80, pulse ox 97%. GENERAL: She appears cachectic. HEENT: Sclerae are icteric. Tongue is dry. NECK: Supple. HEART: Tachy rate, regular rhythm. LUNGS: Decreased breath sounds at the bases. ABDOMEN: Distended with positive ascitic fluid wave with Aspira catheter noted. EXTREMITIES: A +1 edema, faint. NEUROLOGIC: Somnolent, but arousable with marked decreased range of motion, weakness of her arms and legs. SKIN: Otherwise warm and dry. LABORATORY DATA: The patient labs were done. White blood cell count of 22,600, hemoglobin 10.1, hematocrit 29.1, platelet count of 88,000 with a chem metabolic panel showing a BUN of 105, up from 98 yesterday with a creatinine of 2.3, the same as yesterday's; however, her calcium is now 7.9, improved from 6.8 yesterday with a total bilirubin of 20.6, yesterday's was 20.2. AST of 104 with normal ALT of 40, alkaline phosphatase of 342, ammonia level of 55 done yesterday. Her INR was noted to be 1.96 three days prior, it is now 1.69 after fresh frozen plasma was given as per Dr. Pretty's recommendation. ASSESSMENT: Stage IV metastatic colon cancer with worsening renal function, elevated total bilirubin, cholelithiasis, status post paracentesis for ascites with Aspira catheter in situ, failure to thrive. PLAN: After conversation with Dr. Pretty, is to continue present medical regimen, we will monitor clinically and with labs. We will cut back her hyperal to 50 mL an hour after conversation with Dr. Cuellar, Renal with continuation of her supportive care. Also, Dr. Pretty recommends to be aggressive as is feasible for this patient with Stivarga to be restarted once the patient's insurance company will send it as the patient has run out of the medicine. Prognosis for this patient is guarded. This is a complex patient with a comprehensive medically necessary and appropriate visit carried out in excess of 30 minutes [id number] time with the patient, also previously the patient was consulted for end of life care with her wishes to be added for DNR/DNI for resuscitation status to be implemented. Also, an excess of 40 minutes [id number] time with the patient and her family members and friends. Mark Dennis MD
[2017-06-27] MEDS: [UNRECOGNIZED DRUG - NUTRITION] IV SCH (18:46)
[2017-06-28] MEDS: Morphine 2 mg/ml ISec IVP PRN ×4 (01:03→15:12)
--- NOTE | 2017-06-28 01:36 | PN ---
DATE: 06/27/2017 SUBJECTIVE: This patient was seen and evaluated earlier today. The patient is just able to manage to drink lactulose now. The patient is alert. PHYSICAL EXAMINATION: VITAL SIGNS: Temperature is 97.8, pulse 107, blood pressure 109/69. The patient is deeply jaundiced. NECK: Supple. HEART: S1 and S2 heard. LUNGS: Bilateral air entry present. Reduced at the base. ABDOMEN: Softly distended. Aspira catheter in place. EXTREMITIES: No cyanosis. No clubbing. LABORATORY DATA: Hemoglobin 10.1, hematocrit 29.1, WBC 22.6, and platelets 88. Total bilirubin is elevated at 20.6. and creatinine 2.3. IMPRESSION: This is a 62-year-old patient with metastatic colon cancer, now has status post treatment with Stivarga. The patient is having now progressively worsening of the renal function. This is probably could be multifactorial etiology. The patient has a poor intake on TPN. History of gallstones, cholecystectomy in the past. The patient has increased white cell count, off the antibiotics, reviewed both ID and Renal consultation report, also reviewed Oncology progress note by Dr. Mark Dennis, will discuss with oncologist. Overall, prognosis of the patient remains poor. Agree with continuing lactulose. Thank you very much for allowing us to participate in the care of the patient. Joi Turk MD JOE
[2017-06-28 06:35] LABS: HEMOGLOBIN 10.2 g/dL (12.0-16.0); MEAN CELL VOLUME 81.3 fl (80.0-105.0); MEAN CORPUSCULAR HGB CONC 34.5 g/dl (31.0-37.0); PLATELET COUNT 113 10^3/uL (120.0-450.0); RBC 3.64 10^6/uL (3.5-6.1); RED CELL DISTRIBUTION WIDTH 21.2 % (11.5-14.5); WHITE BLOOD COUNT 21.9 10^3/ul (4.5-11.0)
[2017-06-28 06:45] LABS: CALCIUM 8.6 mg/dL (8.4-10.5)
[2017-06-28 06:56] LABS: ALB/GLOB RATIO 0.7 (1.1-1.8); ALBUMIN 2.7 g/dL (3.0-4.8)
[2017-06-28] MEDS: Pantoprazole 40 mg EC Tab PO SCH (09:22)
[2017-06-28] MEDS: Potassium Chloride 20 mEq ER Tab PO SCH (09:22)
[2017-06-28] MEDS: STIVARGA 40 MG PO SCH (09:23)
[2017-06-28] MEDS: Nystatin 100,000 Units/ml Oral Susp 5 ml UD PO SCH ×4 (09:24→21:33)
[2017-06-28] MEDS: Sucralfate 1 gm/10 ml Oral Susp UD PO SCH ×2 (09:24→18:11)
[2017-06-28] MEDS: POLYETHYLENE GLYCOL 3350 17 GM/Dose PACKET PO SCH ×2 (09:24→18:11)
[2017-06-28] MEDS: Morphine 5 MG/ML SYRINGE IVP PRN ×2 (18:07→21:33)
[2017-06-28] MEDS: [UNRECOGNIZED DRUG - NUTRITION] IV SCH (18:08)
[2017-06-28] MEDS: Silver Sulfadiazine 1% Cream (25 gm) TP SCH (18:12)
--- NOTE | 2017-06-28 18:57 | PN ---
DATE: SUBJECTIVE: Patient is in bed, in no acute distress, nontoxic. PHYSICAL EXAMINATION: VITAL SIGNS: Temperature is 97, blood pressure is 105/60, respiratory rate of 20. HEENT: Unremarkable. NECK: Supple. LUNGS: Have decreased breath sounds. HEART: Normal S1, S2. ABDOMEN: Soft, nontender. LABORATORY EXAMINATION: Reveals the patient has a white count of 21,000, hemoglobin of 10, and platelets of 113. Chemistries are BUN of 113, creatinine of 2.4. Urinalysis is noted. ASSESSMENT AND PLAN: A 62-year-old female, seen early this morning in room 364, bed 2, who is awake, however, she states she is very weak. She is chronically ill, cachectic, wasting syndrome with stage IV metastatic colon cancer with liver metastases and currently off of antibiotics. Possible hospice. We will follow with you. Patient is at risk for development of nosocomial infections. Dorian Solis MD
--- NOTE | 2017-06-28 20:36 | PN ---
DATE: 06/28/2017 SUBJECTIVE: This patient was seen and evaluated earlier. Patient appears very lethargic. OBJECTIVE: . VITAL SIGNS: Temperature is 97, pulse 107, blood pressure 105/67. HEENT: Cachectic. Temporal wasting and deeply jaundiced. NECK: Supple. HEART: S1 and S2 heard. LUNGS: Bilateral air entry present, reduced at the base. ABDOMEN: Distended. Aspira catheter in place. LABORATORY DATA: Shows hemoglobin 10.2, hematocrit 29.6, WBC 21.9, platelets 113. BUN 113, creatinine 2.4, total bilirubin is 18.9, alk phos 409. IMPRESSION: This 62-year-old patient with metastatic colon cancer advanced, status post treatment with Stivarga, history of cholelithiasis, history of status post cholecystitis before, not a surgical candidate as per the Surgery, has carcinomatosis and ascites, has Aspira catheter with frequent drainage of the ascitic fluid. Patient has a worsening of the renal function, worsening of the liver function. Patient had a drained peritoneal fluid about 2 liters today. Patient has encephalopathy, probably metabolic and a combination hepatic, on lactulose. We will continue that. Overall, prognosis of the patient is poor. Continue supportive care. Patient has been on TPN which also partially contribute to the overall hepatic dysfunction; however, the patient's p.o. intake remains extremely poor and the TPN has been cut down the amount. Thank you very much for allowing me to participate in the care of this patient. Joi Turk MD
--- NOTE | 2017-06-28 21:24 | PN ---
DATE: 06/28/2017 This is [facility] visit on the medical floor. For Dr. Pretty. SUBJECTIVE: The patient is a 62-year-old female lying awake in bed with friends at the bedside, appearing cachectic with patient drowsy, but arousable. She is known to suffer from stage IV metastatic colon CA with intraabdominal carcinomatosis with ascites, failure to thrive with acute renal failure with probable hepatorenal syndrome. At present, she is resting comfortably with her most recent T bili coming down to 18.9 from a high value of 20.6 yesterday. Her hyperal was cut back from 83 mL an hour to 50 mL an hour in anticipation of her taking more sustenance orally with the patient's lethargy probably secondary to hepatic encephalopathy?. She is otherwise in no acute distress with 2 L of fluid drained from her Aspira catheter for her ascites maintenance with patient otherwise unable to care for herself with the patient having difficulty in transfers with patient able to go from the bed to the commode as her only activity. She also has a worsening decubitus area of her sacral area with the patient still unable to ambulate without significant assistance. The patient is a DNR/DNI with consideration for hospice in the future as at present, she is anticipating treatment with Stivarga to begin in the near future as per Dr. Pretty's recommendation. OBJECTIVE: VITAL SIGNS: Temperature 97, pulse 107, respirations 20, blood pressure 105/67, pulse ox 99%. GENERAL: She appears cachectic. HEENT: Tongue is dry. NECK: Supple. HEART: Tachy rate, regular rhythm. LUNGS: Decreased breath sounds at the bases. ABDOMEN: Distended, status post paracentesis of 2 L of fluid by her Aspira catheter. EXTREMITIES: +1 edema to the feet bilaterally. NEUROLOGIC: She is lethargic, but arousable. SKIN: With an icteric tinge with decreased strength to order dispatcher. LABORATORY DATA: Were done: White blood cell count of 21,900; hemoglobin 10.2; hematocrit of 29.6; platelet count of 113,000 with an INR of 1.69 down from 2.62 earlier her hospital stay. Her chem metabolic panel shows a BUN of 113, creatinine of 2.4 which is modestly worsened. Her T bili is now 18.9 down from 20.6 yesterday with a magnesium of 2.5, alk phos of 409, AST of with normal ALT of 47. ASSESSMENT: Stage IV metastatic colon cancer with worsening renal function, acute renal failure, tense ascites, status post Aspira catheter placement, cholelithiasis, elevated total bilirubin, failure to thrive, intractable pain of cancer, gastroesophageal reflux disease, decubitus ulcer and hepatic encephalopathy. PLAN: After conversation with Dr. Pretty and Dr. Turk is to continue present medical regimen with awaiting for Stivarga to be supplied by her insurance. We will repeat an ammonia level in the morning. We will give Silvadene cream to her sacral decubitus area with prognosis for this patient guarded. We will monitor clinically with labs. This is a complex patient with a comprehensive medically necessary and appropriate visit carried out in excess of 30 minutes [id number] time with the patient and her family and friend in the room with questions answered to their satisfaction. There is consideration for hospice should the patient continue to deteriorate. At present, she is a DNR/DNI. Mark Dennis MD
[2017-06-29] MEDS: Morphine 5 MG/ML SYRINGE IVP PRN ×3 (00:42→07:51)
[2017-06-29 07:28] LABS: HEMOGLOBIN 10.7 g/dL (12.0-16.0); MEAN CORPUSCULAR HEMOGLOBIN 27.5 pg (25.0-35.0); MEAN CORPUSCULAR HGB CONC 33.5 g/dl (31.0-37.0); PLATELET COUNT 115 10^3/uL (120.0-450.0); RBC 3.89 10^6/uL (3.5-6.1); RED CELL DISTRIBUTION WIDTH 21.7 % (11.5-14.5); WHITE BLOOD COUNT 18.3 10^3/ul (4.5-11.0)
[2017-06-29 07:30] LABS: CALCIUM 8.7 mg/dL (8.4-10.5)
[2017-06-29 07:32] LABS: ALB/GLOB RATIO 0.6 (1.1-1.8); ALBUMIN 2.4 g/dL (3.0-4.8)
[2017-06-29] MEDS ORDERED: HYDROmorphone 2 mg/ml ISec IVP STA (07:50)
[2017-06-29] MEDS ORDERED: HYDROmorphone 1 mg/ml ISec IVP STA (08:12)
[2017-06-29 08:21] LABS: INR 1.83 (0.93-1.08); PROTHROMBIN TIME 21.3 SECONDS (9.4-12.5)
[2017-06-29 08:23] VITALS: BP 89/59; PULSE 100; RESP 21; TEMP 97; O2SAT 98
[2017-06-29] MEDS: Potassium Chloride 20 mEq ER Tab PO SCH (09:35)
[2017-06-29] MEDS ORDERED: HYDROmorphone 1 mg/ml PCA 30 ML IV PRN (10:25)
[2017-06-29] MEDS: STIVARGA 40 MG PO SCH (11:40)
[2017-06-29] MEDS: Sucralfate 1 gm/10 ml Oral Susp UD PO SCH (11:40)
[2017-06-29] MEDS: Silver Sulfadiazine 1% Cream (25 gm) TP SCH (11:41)
[2017-06-29] MEDS: POLYETHYLENE GLYCOL 3350 17 GM/Dose PACKET PO SCH (11:41)
[2017-06-29] MEDS: Pantoprazole 40 mg EC Tab PO SCH (11:41)
[2017-06-29] MEDS: Nystatin 100,000 Units/ml Oral Susp 5 ml UD PO SCH ×2 (11:41→14:37)
--- NOTE | 2017-06-29 11:57 | CP.PCM.PN ---
Subjective - Date & Time of Evaluation Date of Evaluation: 06/29/17 Time of Evaluation: 07:40 - Subjective Subjective: Heme-onc Progress Note, Dinh Rodriguez DO, IM PGY-2 62 year old female with a PMH of Stage IV metastatic colon cancer with intraabdominal carcinomatosis and liver metastases who presented with pain and nausea after aspira cathter insertion. Patient seen and examined at bedside. Patient is in extremely poor condition, severely lethargic, barely able to speak more than one word, unable to keep head lifted up for more than a few seconds at a time. Breathing shallowly, grossly icteric, very cachetic. As per Palliative service, to be started on Dilaudid COMPUTER ANALYST SUPERVISOR, reaching out to family to discuss putting patient on Hospice. Objective - Vital Signs/Intake and Output Vital Signs (last 24 hours): Temp Pulse Resp BP Pulse Ox 97 F L 100 H 21 89/59 L 98 06/29/17 08:22 06/29/17 08:22 06/29/17 08:22 06/29/17 08:22 06/29/17 08:22 Intake and Output: 06/29/17 06/29/17 06:59 18:59 Output Total 300 Balance -300 - Medications Medications: Current Medications Docusate Sodium (Colace) 100 mg PO BID [facility] Last Admin: 06/29/17 11:40 Dose: Not Given Dronabinol (Marinol) 2.5 mg PO DAILY [facility] Last Admin: 06/29/17 11:41 Dose: Not Given Fentanyl (Duragesic) 1 patch TD Q72H [facility] Last Admin: 06/27/17 10:50 Dose: 1 patch Home Med (Home Med) 2 unit PO DAILY [facility] Last Admin: 06/29/17 11:40 Dose: Not Given Chromium/Copper/Manganese/Zinc 1 ml/ Multivitamins/Vitamin C 10 ml/ Insulin Human Regular 10 units/ Amino Acids 2,011.1 mls @ 50 mls/hr IV .Q24H [facility] Last Admin: 06/28/17 18:08 Dose: 50 mls/hr Hydromorphone HCl (Dilaudid-Hp 1 Mg/Ml Assembler Show Motor) 30 mls @ 0.5 mls/hr IV PRN PRN; Protocol PRN Reason: COMPUTER ANALYST SUPERVISOR PER MD ORDER Last Admin: 06/29/17 10:48 Dose: 0.5 mls/hr Lactulose (Enulose) 10 gm PO BID [facility] Last Admin: 06/29/17 11:40 Dose: Not Given Lorazepam (Ativan) 0.5 mg PO Q8 PRN; Protocol PRN Reason: Anxiety Last Admin: 06/28/17 20:19 Dose: 0.5 mg Nystatin (Nystatin Oral Susp) 5 ml PO QID [facility] Last Admin: 06/29/17 11:41 Dose: Not Given Ondansetron HCl (Zofran Inj) 4 mg IVP Q6H PRN PRN Reason: Nausea/Vomiting Last Admin: 06/28/17 09:13 Dose: 4 mg Pantoprazole Sodium (Protonix Ec Tab) 40 mg PO DAILY [facility] Last Admin: 06/29/17 11:41 Dose: Not Given Polyethylene Glycol (Miralax) 17 gm PO BID [facility] Last Admin: 06/29/17 11:41 Dose: Not Given Potassium Chloride (K-Dur 20 Meq Er Tab) 20 meq PO BRK [facility] Last Admin: 06/29/17 09:35 Dose: Not Given Silver Sulfadiazine (Silvadene 1% 25 Gm) 0 gm TP BID [facility] Last Admin: 06/29/17 11:41 Dose: Not Given Simethicone (Mylicon Liq) 80 mg PO QID PRN PRN Reason: Flatulence Last Admin: 06/14/17 17:02 Dose: 80 mg Sucralfate (Carafate Oral Susp) 1 gm PO BID [facility] Last Admin: 06/29/17 11:40 Dose: Not Given Ursodiol (Actigall) 300 mg PO DAILY [facility] Last Admin: 06/29/17 11:40 Dose: Not Given - Labs Labs: 06/29/17 06:40 06/29/17 06:40 PT 21.3 SECONDS (9.4-12.5) H 06/29/17 07:30 INR 1.83 (0.93-1.08) H 06/29/17 07:30 APTT 41.2 Seconds (25.1-36.5) H 06/23/17 05:40 - Additional Findings Additional findings: - Constitutional Appears: Acute Distress, Chronically Ill, Worsening cachexia, Grossly jaundiced - Head Exam Head Exam: ATRAUMATIC, NORMOCEPHALIC - Eye Exam Eye Exam: PERRL, scleral icterus, unable to assess EOMI as patient not following most commands - ENT Exam ENT Exam: Mucous Membranes Dry, Normal Oropharynx, no visualized petechiae - Neck Exam Neck Exam: Normal Inspection - Respiratory Exam Respiratory Exam: Clear to Ausculation Bilateral. absent: Rhonchi, Wheezes - Cardiovascular Exam Cardiovascular Exam: Tachycardia but otherwise regular rhythm, +S1, +S2, No murmurs heard - GI/Abdominal Exam GI & Abdominal Exam: Distended, Aspira cathter in place, Soft, Minimal Bowel Sounds, + Fluid wave - Extremities Exam Extremities Exam: Pedal Edema (+1-2). absent: Asymmetry, erythema - Neurological Exam Neurological Exam: Lethargic/somnolent but awake, attempts to follow some commands but rapidly loses strength/focus, otherwise not following commands - Psychiatric Exam Psychiatric exam: unable to assess, minimally verbal - Skin Skin Exam: Dry, Warm, yellowing noted Assessment and Plan - Assessment and Plan (Free Text) Assessment: 62 year old female with a PMH of Stage IV metastatic colon cancer with intraabdominal carcinomatosis and liver metastases who presented with pain and nausea after aspira cathter insertion. appears imminent, pending discussion between family and Palliative service for possible hospice. Plan: Stage IV colorectal CA with abdominal carcinomatosis and liver metastases Ascites s/p aspira catheter for intermittent drainage Hyperbilirubinemia likely 2/2 extensive liver metastases, cholestatic - improving today Transaminitis - worsening Hyponatremia - resolved Dehydration with associated OMAR Hypocalcemia - improved Hypomagnesemeia - resolved Anorexia and cachexia Worsening leukocytosis HTN - resolved, now hypotensive DNR/DNI Hospice/palliative care following, Palliative and Heme-onc attempting to reach family to discuss possible inpatient hospice Continue pain control; now on Dilaudid COMPUTER ANALYST SUPERVISOR Ammonia remains 55, likely worsening encephalopathy given presentation today GI following, recs appreciated Nephro following, on hyper-al, recs appreciated Very poor prognosis at this time Patient reviewed and discussed at length with attending, Dr. Pretty
--- NOTE | 2017-06-29 12:58 | CP.PCM.PN ---
Subjective - Date & Time of Evaluation Date of Evaluation: 06/29/17 Time of Evaluation: 11:00 - Subjective Subjective: Moaning, unable to answer simple questions. Labored breathing. Objective - Vital Signs/Intake and Output Vital Signs (last 24 hours): Temp Pulse Resp BP Pulse Ox 97 F L 100 H 21 89/59 L 98 06/29/17 08:22 06/29/17 08:22 06/29/17 08:22 06/29/17 08:22 06/29/17 08:22 Intake and Output: 06/29/17 06/29/17 06:59 18:59 Output Total 300 Balance -300 - Medications Medications: Current Medications Docusate Sodium (Colace) 100 mg PO BID [facility] Last Admin: 06/29/17 11:40 Dose: Not Given Dronabinol (Marinol) 2.5 mg PO DAILY [facility] Last Admin: 06/29/17 11:41 Dose: Not Given Fentanyl (Duragesic) 1 patch TD Q72H [facility] Last Admin: 06/27/17 10:50 Dose: 1 patch Home Med (Home Med) 2 unit PO DAILY [facility] Last Admin: 06/29/17 11:40 Dose: Not Given Chromium/Copper/Manganese/Zinc 1 ml/ Multivitamins/Vitamin C 10 ml/ Insulin Human Regular 10 units/ Amino Acids 2,011.1 mls @ 50 mls/hr IV .Q24H [facility] Last Admin: 06/28/17 18:08 Dose: 50 mls/hr Hydromorphone HCl (Dilaudid-Hp 1 Mg/Ml Knowledge Architect) 30 mls @ 0.5 mls/hr IV PRN PRN; Protocol PRN Reason: ASBESTOS REMOVER PER MD ORDER Last Admin: 06/29/17 10:48 Dose: 0.5 mls/hr Lactulose (Enulose) 10 gm PO BID [facility] Last Admin: 06/29/17 11:40 Dose: Not Given Lorazepam (Ativan) 0.5 mg IVP Q6H PRN; Protocol PRN Reason: Anxiety Nystatin (Nystatin Oral Susp) 5 ml PO QID [facility] Last Admin: 06/29/17 11:41 Dose: Not Given Ondansetron HCl (Zofran Inj) 4 mg IVP Q6H PRN PRN Reason: Nausea/Vomiting Last Admin: 06/28/17 09:13 Dose: 4 mg Pantoprazole Sodium (Protonix Ec Tab) 40 mg PO DAILY [facility] Last Admin: 06/29/17 11:41 Dose: Not Given Polyethylene Glycol (Miralax) 17 gm PO BID [facility] Last Admin: 06/29/17 11:41 Dose: Not Given Potassium Chloride (K-Dur 20 Meq Er Tab) 20 meq PO BRK [facility] Last Admin: 06/29/17 09:35 Dose: Not Given Silver Sulfadiazine (Silvadene 1% 25 Gm) 0 gm TP BID [facility] Last Admin: 06/29/17 11:41 Dose: Not Given Simethicone (Mylicon Liq) 80 mg PO QID PRN PRN Reason: Flatulence Last Admin: 06/14/17 17:02 Dose: 80 mg Sucralfate (Carafate Oral Susp) 1 gm PO BID [facility] Last Admin: 06/29/17 11:40 Dose: Not Given Ursodiol (Actigall) 300 mg PO DAILY [facility] Last Admin: 06/29/17 11:40 Dose: Not Given - Labs Labs: 06/29/17 06:40 06/29/17 06:40 PT 21.3 SECONDS (9.4-12.5) H 06/29/17 07:30 INR 1.83 (0.93-1.08) H 06/29/17 07:30 APTT 41.2 Seconds (25.1-36.5) H 06/23/17 05:40 - Constitutional Appears: Cachectic, Chronically Ill - Head Exam Head Exam: NORMOCEPHALIC - Eye Exam Eye Exam: PERRL, Scleral icterus - ENT Exam ENT Exam: Mucous Membranes Moist - Neck Exam Neck Exam: Normal Inspection - Respiratory Exam Respiratory Exam: Accessory Muscle Use, Decreased Breath Sounds - Cardiovascular Exam Cardiovascular Exam: Tachycardia, +S1, +S2 - GI/Abdominal Exam GI & Abdominal Exam: Distended, Firm, Diminished Bowel Sounds - Exam Additional comments: bilateral lower extremity edema - Skin Skin Exam: Dry, Warm Additional comments: jaundice Assessment and Plan - Assessment and Plan (Free Text) Assessment: 62 year old with metastatic colon cancer who si admitted with intractable pain, anorexia, cachexia, hyperbilirubinemia, OMAR, jaundice and ascites The patient is tahcypneic, tachycardic. Her breathing is labored, she is moaning in pain I spoke with POANorma regarding patients condition and extremely poor prognosis. Explained that was imminent. Discussed transitioning to hospice for comfort and symptom management. Norma will contact patients siblings and inform them of her status. Norma indicated that she will let me know whether they will proceed hospice care. after speaking with family . POA and family agree to move forward with [facility] hospice services Time spent in goals of care and end of life discussions with POA and family, 45 minutes. Plan: Goals of care Hospice evaluation. Discharge and admit to [facility] hospice Dilaudid 1 mg IVP now and 0.5mg continuos IV ASBESTOS REMOVER. Discontinue Morphine and Oxycodone IR Ativan 0.5mg IVP. Discontinue Ativan 0.5mg PO,
--- NOTE | 2017-06-29 14:41 | CP.PCM.PN ---
Subjective - Date & Time of Evaluation Date of Evaluation: 06/29/17 Time of Evaluation: 11:25 - Subjective Subjective: Not very responsive, no fevers. Objective - Vital Signs/Intake and Output Vital Signs (last 24 hours): Temp Pulse Resp BP Pulse Ox 97 F L 100 H 21 89/59 L 98 06/29/17 08:22 06/29/17 08:22 06/29/17 08:22 06/29/17 08:22 06/29/17 08:22 Intake and Output: 06/29/17 06/29/17 06:59 18:59 Output Total 300 Balance -300 - Medications Medications: Current Medications Docusate Sodium (Colace) 100 mg PO BID [facility] Last Admin: 06/29/17 11:40 Dose: Not Given Dronabinol (Marinol) 2.5 mg PO DAILY [facility] Last Admin: 06/29/17 11:41 Dose: Not Given Fentanyl (Duragesic) 1 patch TD Q72H [facility] Last Admin: 06/27/17 10:50 Dose: 1 patch Home Med (Home Med) 2 unit PO DAILY [facility] Last Admin: 06/29/17 11:40 Dose: Not Given Chromium/Copper/Manganese/Zinc 1 ml/ Multivitamins/Vitamin C 10 ml/ Insulin Human Regular 10 units/ Amino Acids 2,011.1 mls @ 50 mls/hr IV .Q24H [facility] Last Admin: 06/28/17 18:08 Dose: 50 mls/hr Hydromorphone HCl (Dilaudid-Hp 1 Mg/Ml Forming Machine Operator) 30 mls @ 0.5 mls/hr IV PRN PRN; Protocol PRN Reason: LIVESTOCK BRANDS INSPECTOR PER MD ORDER Last Admin: 06/29/17 10:48 Dose: 0.5 mls/hr Lactulose (Enulose) 10 gm PO BID [facility] Last Admin: 06/29/17 11:40 Dose: Not Given Lorazepam (Ativan) 0.5 mg IVP Q6H PRN; Protocol PRN Reason: Anxiety Last Admin: 06/29/17 12:45 Dose: 0.5 mg Nystatin (Nystatin Oral Susp) 5 ml PO QID [facility] Last Admin: 06/29/17 14:37 Dose: Not Given Ondansetron HCl (Zofran Inj) 4 mg IVP Q6H PRN PRN Reason: Nausea/Vomiting Last Admin: 06/28/17 09:13 Dose: 4 mg Pantoprazole Sodium (Protonix Ec Tab) 40 mg PO DAILY [facility] Last Admin: 06/29/17 11:41 Dose: Not Given Polyethylene Glycol (Miralax) 17 gm PO BID [facility] Last Admin: 06/29/17 11:41 Dose: Not Given Potassium Chloride (K-Dur 20 Meq Er Tab) 20 meq PO BRK [facility] Last Admin: 06/29/17 09:35 Dose: Not Given Silver Sulfadiazine (Silvadene 1% 25 Gm) 0 gm TP BID [facility] Last Admin: 06/29/17 11:41 Dose: Not Given Simethicone (Mylicon Liq) 80 mg PO QID PRN PRN Reason: Flatulence Last Admin: 06/14/17 17:02 Dose: 80 mg Sucralfate (Carafate Oral Susp) 1 gm PO BID [facility] Last Admin: 06/29/17 11:40 Dose: Not Given Ursodiol (Actigall) 300 mg PO DAILY [facility] Last Admin: 06/29/17 11:40 Dose: Not Given - Labs Labs: 06/29/17 06:40 06/29/17 06:40 PT 21.3 SECONDS (9.4-12.5) H 06/29/17 07:30 INR 1.83 (0.93-1.08) H 06/29/17 07:30 APTT 41.2 Seconds (25.1-36.5) H 06/23/17 05:40 - Constitutional Appears: Cachectic, Chronically Ill - Head Exam Head Exam: NORMAL INSPECTION - Neck Exam Neck Exam: absent: Meningismus - Respiratory Exam Respiratory Exam: Decreased Breath Sounds - Cardiovascular Exam Cardiovascular Exam: +S1, +S2 - GI/Abdominal Exam GI & Abdominal Exam: Soft. absent: Tenderness Assessment and Plan - Assessment and Plan (Free Text) Plan: Assessment Systemic inflammatory response syndrome, consider due to malignancy, no evidence of SBP, no evidence of sepsis history of acute cholecystitis, S/P conservative therapy with antibiotics colonic malignancy with liver metastases with ascites S/P paracentesis endometriosis uterine fibroids S/P removal Plan continue to monitor off antibiotics since she is at risk for infection overall prognosis is very poor
--- NOTE | 2017-06-29 18:57 | PN ---
DATE: SUBJECTIVE: The patient is currently seen with family in the room. The patient currently is noncommunicative. She is a DNR/DNI. She has taken a significant turn for the worse over the weekend. She remains on low volume hyperalimentation along with pain medication. The patient will likely be placed into hospice before the days over. MEDICATIONS: Medication list reviewed. The patient is currently on Actigall, Ativan, Carafate, hyperalimentation at 50 mL an hour, Colace, Dilaudid via LABOR RELATIONS SPECIALIST, Duragesic, Enulose, Stivarga, potassium, Marinol, MiraLax, Mylicon, Nystatin, Protonix, Silvadene, and Zofran p.r.n. OBJECTIVE: INTAKE/OUTPUT: Intake not charted, output 300 mL. VITAL SIGNS: Blood pressure 89/59, temperature 97, respiratory rate 21 with a pulse of 100. HEENT: Shows her to be normocephalic, atraumatic. Conjunctivae pink. Sclerae are icteric. NECK: Supple. No neck vein distention. CHEST: Clear to auscultation and percussion. No rales, rhonchi, or wheezing. CARDIOVASCULAR: Shows a regular rate and rhythm without murmurs, rubs, or gallops. ABDOMEN: Distended. Positive ascites. She has a peritoneal catheter in her right lower quadrant. No rebound, guarding. No masses appreciated. EXTREMITIES: Show no significant lower extremity edema. Her legs are puffy. No cyanosis or clubbing. LABORATORY DATA AND IMAGING: CBC: White blood cell count today 18.3, hemoglobin 10.7 with a platelet count of 115,000. Chemistry showed normal electrolytes. BUN up to 127, creatinine is up to 2.5. Glucose 158. Calcium 87, phosphorus remains elevated at 77. Magnesium is 2.4. Bilirubin is 17.3. Liver enzymes are elevated. Ammonia level is 55. Albumin is 2.4. ASSESSMENT: 1. Continued worsening of renal parameters, prerenal azotemia in the setting of renal hypoperfusion. This may be consistent with renal hypoperfusion or might be consistent with a combination of factors including that of hepatorenal syndrome. As discussed with Dr. Dennis, I decreased the hyperalimentation to 50 mL an hour because of concern of declining urine output and the desire not to make her hypervolemic and edematous. 2. Status post mild hyponatremia. This has resolved with isotonic hyperalimentation. 3. History of hypertension. Blood pressure is now in the low normal range. Blood pressure medications were on hold. 4. History of stage IV colon cancer with liver metastases with intractable pain. The patient is being considered strongly for the initiation of hospice later today. 5. Do not resuscitate/do not intubate noted. 6. Ascites secondary to metastases to the liver. 7. Severe hyperphosphatemia secondary to worsening renal parameters. The patient is on phosphorus free hyperalimentation. 8. History of hypocalcemia. Her calcium levels presently normal. 9. Mild hypermagnesemia. The patient will continue low magnesium content and hyperal. PLAN: 1. I agreed with decision to encourage family to agree to hospice in light of her very poor prognosis and the fact that the patient is dying. 2. May discontinue hyperal at any point in time from my standpoint. 3. Continue to keep the patient comfortable using narcotic analgesics in a liberalized manner. Yang Cuellar MD
--- NOTE | 2017-07-01 06:57 | CP.PCM.DIS ---
Provider - Provider Date of Admission: 06/11/17 20:57 Attending physician: Mark Dennis MD Time Spent in preparation of Discharge (in minutes): 25 Hospital Course - Lab Results Lab Results: Micro Results 06/18/17 12:30 Blood-Venous Blood Culture - Final NO GROWTH AFTER 5 DAYS 06/18/17 12:30 Blood-Venous Gram Stain - Final TEST NOT PERFORMED 06/18/17 12:15 Blood-Venous Blood Culture - Final NO GROWTH AFTER 5 DAYS 06/18/17 12:15 Blood-Venous Gram Stain - Final TEST NOT PERFORMED 06/18/17 12:03 Peritoneal Fluid Gram Stain - Final 06/18/17 12:03 Peritoneal Fluid Body Fluid Culture - Final No growth. 06/21/17 09:20 Urine Urine Culture - Final Yeast Species Most Recent Lab Values WBC 18.3 10^3/ul (4.5-11.0) H 06/29/17 06:40 RBC 3.89 10^6/uL (3.5-6.1) 06/29/17 06:40 Hgb 10.7 g/dL (12.0-16.0) L 06/29/17 06:40 Hct 31.9 % (36.0-48.0) L 06/29/17 06:40 MCV 82.0 fl (80.0-105.0) 06/29/17 06:40 MCH 27.5 pg (25.0-35.0) 06/29/17 06:40 MCHC 33.5 g/dl (31.0-37.0) 06/29/17 06:40 RDW 21.7 % (11.5-14.5) H 06/29/17 06:40 Plt Count 115 10^3/uL (120.0-450.0) L 06/29/17 06:40 MPV 9.3 fl (7.0-11.0) 06/21/17 06:00 Gran % 83.0 % (50.0-68.0) H 06/23/17 05:40 Lymph % (Auto) 5.3 % (22.0-35.0) L 06/23/17 05:40 [place] % (Auto) 11.3 % (1.0-6.0) H 06/23/17 05:40 Eos % (Auto) 0.3 % (1.5-5.0) L 06/23/17 05:40 Baso % (Auto) 0.1 % (0.0-3.0) 06/23/17 05:40 Gran # 18.92 (1.4-6.5) H 06/23/17 05:40 Lymph # (Auto) 1.2 (1.2-3.4) 06/23/17 05:40 [place] # (Auto) 2.6 (0.1-0.6) H 06/23/17 05:40 Eos # (Auto) 0.1 (0.0-0.7) 06/23/17 05:40 Baso # (Auto) 0.03 K/mm3 (0.0-2.0) 06/23/17 05:40 Neutrophils % (Manual) 83 % (50.0-70.0) H 06/19/17 05:30 Lymphocytes % (Manual) 10 % (22.0-35.0) L 06/19/17 05:30 Monocytes % (Manual) 7 % (1.0-6.0) H 06/19/17 05:30 Myelocytes % 1 % 06/13/17 05:15 Platelet Evaluation Sl. dec. (NORMAL) 06/19/17 05:30 Hypochromasia Slight 06/19/17 05:30 Anisocytosis (manual) Slight 06/19/17 05:30 PT 21.3 SECONDS (9.4-12.5) H 06/29/17 07:30 INR 1.83 (0.93-1.08) H 06/29/17 07:30 APTT 41.2 Seconds (25.1-36.5) H 06/23/17 05:40 Sodium 136 mmol/L (132-148) 06/29/17 06:40 Potassium 3.9 mmol/L (3.6-5.0) 06/29/17 06:40 Chloride 95 mmol/L (98-107) L 06/29/17 06:40 Carbon Dioxide 24 mmol/L (21-33) 06/29/17 06:40 Anion Gap 21 (10-20) H 06/29/17 06:40 BUN 127 mg/dL (7-21) H* 06/29/17 06:40 Creatinine 2.5 mg/dl (0.7-1.2) H 06/29/17 06:40 Est GFR ( Amer) 24 06/29/17 06:40 Est GFR (Non-Af Amer) 20 06/29/17 06:40 Random Glucose 158 mg/dL (70-110) H 06/29/17 06:40 Calcium 8.7 mg/dL (8.4-10.5) 06/29/17 06:40 Phosphorus 7.7 mg/dL (2.5-4.5) H 06/29/17 06:40 Magnesium 2.4 mg/dL (1.7-2.2) H 06/29/17 06:40 Total Bilirubin 17.3 mg/dL (0.2-1.3) H 06/29/17 06:40 Direct Bilirubin 8.8 mg/dL (0.0-0.4) H 06/22/17 11:32 AST 127 U/L (14-36) H 06/29/17 06:40 ALT 47 U/L (7-56) 06/29/17 06:40 Alkaline Phosphatase 391 U/L (38-126) H 06/29/17 06:40 Ammonia 55 umol/L (9-33) H 06/29/17 06:40 Total Protein 6.2 g/dL (5.8-8.3) 06/29/17 06:40 Albumin 2.4 g/dL (3.0-4.8) L 06/29/17 06:40 Globulin 3.8 gm/dL 06/29/17 06:40 Albumin/Globulin Ratio 0.6 (1.1-1.8) L 06/29/17 06:40 Procalcitonin 1.76 NG/ML (0.19-0.49) H 06/18/17 06:00 Urine Color Dark yellow (YELLOW) 06/21/17 09:20 Urine Appearance Clear (CLEAR) 06/21/17 09:20 Urine pH 6.0 (4.7-8.0) 06/21/17 09:20 Ur Specific [place] 1.020 (1.005-1.035) 06/21/17 09:20 Urine Protein Trace mg/dL (<30 mg/dL) H 06/21/17 09:20 Urine Glucose (UA) Negative mg/dL (NEGATIVE) 06/21/17 09:20 Urine Ketones Negative mg/dL (NEGATIVE) 06/21/17 09:20 Urine Blood Trace-intact (NEGATIVE) H 06/21/17 09:20 Urine Nitrate Negative (NEGATIVE) 06/21/17 09:20 Urine Bilirubin Moderate (NEGATIVE) H 06/21/17 09:20 Urine Urobilinogen 0.2 E.U./dL (<1 E.U./dL) 06/21/17 09:20 Ur Leukocyte Esterase Trace Lauren/uL (NEGATIVE) H 06/21/17 09:20 Urine RBC 0 - 2 /hpf (0-2) 06/21/17 09:20 Urine WBC 1 - 3 /hpf (0-6) 06/21/17 09:20 Ur Epithelial Cells 4 - 5 /hpf (0-5) 06/21/17 09:20 Amorphous Sediment Small 06/13/17 15:55 Urine Bacteria Small (NEG) 06/21/17 09:20 Urine Other Uyeast 06/13/17 15:55 Urine Osmolality 382 mosm/kg (300-1000) 06/13/17 15:55 Ur Random Creatinine 228 mg/dL 06/13/17 15:55 Ur Random Sodium < 5 meq/L 06/13/17 15:55 Fluid Source Peritoneal 06/18/17 12:15 Fluid Appearance Clear (CLEAR) 06/18/17 12:15 Fluid WBC 645.0 /uL (0.0-300.0) H 06/18/17 12:15 Fluid RBC 115.0 /uL (0.0-0.0) H 06/18/17 12:15 Fluid Tot Cell Count 100 (0-0) H 06/18/17 12:15 Fluid Neutrophils 34.0 % (0-0) H 06/18/17 12:15 Fluid Lymphocytes 66.0 % (0-0) H 06/18/17 12:15 Fld Monocyte/Macrophag TEST NOT PERFORMED 06/18/17 12:15 Fluid Albumin 0.8 g/dL 06/18/17 12:03 Fluid Comment Yellow 06/18/17 12:15 Peritoneal Tot Protein <3.0 g/dL 06/18/17 12:03 Peritoneal LDH 242 U/L (<63) H 06/18/17 12:03 Peritoneal Glucose 112 mg/dL 06/18/17 12:03 Influenza Typ A,B (EIA) Negative for flu a/b (NEGATIVE) 06/19/17 10:30 Blood Type O POSITIVE 06/25/17 11:15 Antibody Screen Negative 06/25/17 11:15 BBK History Checked Patient has bt 06/25/17 11:15 - Hospital Course Hospital Course: This is a 62 year old female with a PMH of Stage IV metastatic colon cancer with intraabdominal carcinomatosis and liver metastases who presented with pain and nausea after aspira cathter insertion. Due to her rapidly worsening clinical condition and likely imminent , discussion was had with family and POA by Palliative and Heme-onc attending regarding in-patient hospice and comfort measures. Family and POA are in agreement, patient is no longer coherent or able to recognize staff. Dilaudid SHIP WASHER started, and then patient was transferred to inpatient hospice. Discharge Exam - Head Exam Head Exam: NORMOCEPHALIC - Additional Findings Additional findings: Please see exam from my progress note today (06/29/17 at 1149) fpr physical exam details, unchanged between then and now Discharge Plan - Follow Up Plan Condition: FAIR Disposition: HOSPICE - MEDICAL FACILITY Instructions: Palliative Care Additional Instructions: DISCHARGE TO HOSPICE
== END 2017-06-29 15:53 | disposition hospice, inpatient (51) | DRG 552 ==
LOC: ED 18:45 → ERH 20:57 → 3RNO 23:51
PROVIDERS: ADMIT Family Medicine; ATTEND Family Medicine
PROC: 3E0336Z Introduction of Nutritional Substance into Peripheral Vein, Percutaneous Approach (ICD-10-PCS; principal; 2017-06-15)
PROC: 30233K1 Transfusion of Nonautologous Frozen Plasma into Peripheral Vein, Percutaneous Approach (ICD-10-PCS; 2017-06-19)
DX: C19 Malignant neoplasm of rectosigmoid junction (principal); N17.9 Acute kidney failure, unspecified; K76.7 Hepatorenal syndrome; G93.41 Metabolic encephalopathy; E46 Unspecified protein-calorie malnutrition; R64 Cachexia; C78.5 Secondary malignant neoplasm of large intestine and rectum; C78.6 Secondary malignant neoplasm of retroperitoneum and peritoneum; E83.39 Other disorders of phosphorus metabolism; R65.10 Systemic inflammatory response syndrome (SIRS) of non-infectious origin without acute organ dysfunction; R18.8 Other ascites; K72.90 Hepatic failure, unspecified without coma; C78.7 Secondary malignant neoplasm of liver and intrahepatic bile duct; C34.90 Malignant neoplasm of unspecified part of unspecified bronchus or lung; E87.2 Acidosis; E86.9 Volume depletion, unspecified; E87.1 Hypo-osmolality and hyponatremia; E87.6 Hypokalemia; N18.9 Chronic kidney disease, unspecified; E83.41 Hypermagnesemia; D25.9 Leiomyoma of uterus, unspecified; D63.8 Anemia in other chronic diseases classified elsewhere; E83.42 Hypomagnesemia; E83.51 Hypocalcemia; G89.18 Other acute postprocedural pain; G89.29 Other chronic pain; I12.9 Hypertensive chronic kidney disease with stage 1 through stage 4 chronic kidney disease, or unspecified chronic kidney disease; K21.9 Gastro-esophageal reflux disease without esophagitis; K80.20 Calculus of gallbladder without cholecystitis without obstruction; M53.3 Sacrococcygeal disorders, not elsewhere classified; N80.9 Endometriosis, unspecified; R62.7 Adult failure to thrive; Z51.5 Encounter for palliative care; Z66 Do not resuscitate; Z87.442 Personal history of urinary calculi; Z92.21 Personal history of antineoplastic chemotherapy; Z91.018 Allergy to other foods; R40.2412 Glasgow coma scale score 13-15, at arrival to emergency department; T50.2X5A Adverse effect of carbonic-anhydrase inhibitors, benzothiadiazides and other diuretics, initial encounter

== ENCOUNTER 2017-06-29 15:50 | Inpatient (IN) | payer OTHER ==
[2017-06-29] MEDS ORDERED: HYDROmorphone 1 mg/ml PCA 30 ML IV PRN (16:02)
[2017-06-29 16:41] VITALS: RESP 8
--- NOTE | 2017-06-29 18:00 | CP.PCM.PRO ---
Pronouncement of Note - Clinical Findings Physical Exam: No Response Verbal/Painful Stimuli, Absent Heart & Breath Sounds , Absence of Vital Signs - Pronouncement Time Time of Pronouncement of : 17:45 Additional Comments: Patient was on Hospice Care. - Notifications Pronouncement Notifications: Family Notified, Atending Notified - N.[place]ja Certificate [place] Number: [id number]
[2017-06-29] MEDS ORDERED: DiphenhydrAMINE 50 mg/ml Inj IVP SCH (18:15)
== END 2017-06-29 17:45 | DRG 374 ==
LOC: 3RNO 15:50
PROVIDERS: ADMIT Family Medicine; ATTEND Family Medicine
DX: C19 Malignant neoplasm of rectosigmoid junction (principal); K76.7 Hepatorenal syndrome; G93.41 Metabolic encephalopathy; N17.9 Acute kidney failure, unspecified; C78.5 Secondary malignant neoplasm of large intestine and rectum; R18.8 Other ascites; C78.6 Secondary malignant neoplasm of retroperitoneum and peritoneum; E83.39 Other disorders of phosphorus metabolism; C78.7 Secondary malignant neoplasm of liver and intrahepatic bile duct; E87.2 Acidosis; R64 Cachexia; R65.10 Systemic inflammatory response syndrome (SIRS) of non-infectious origin without acute organ dysfunction; C34.90 Malignant neoplasm of unspecified part of unspecified bronchus or lung; E87.1 Hypo-osmolality and hyponatremia; K72.90 Hepatic failure, unspecified without coma; E86.9 Volume depletion, unspecified; N18.9 Chronic kidney disease, unspecified; D25.9 Leiomyoma of uterus, unspecified; D63.8 Anemia in other chronic diseases classified elsewhere; G89.29 Other chronic pain; I12.9 Hypertensive chronic kidney disease with stage 1 through stage 4 chronic kidney disease, or unspecified chronic kidney disease; K80.20 Calculus of gallbladder without cholecystitis without obstruction; M53.3 Sacrococcygeal disorders, not elsewhere classified; N80.9 Endometriosis, unspecified; R62.7 Adult failure to thrive; Z66 Do not resuscitate; Z51.5 Encounter for palliative care; Z92.21 Personal history of antineoplastic chemotherapy